=== PATIENT | male | born 1940 | race Caucasian/White ===

== ENCOUNTER 2019-05-12 10:29 | Emergency (ER) | payer MEDICARE, OTHER, SELFPAY ==
--- NOTE | ~2019-05-12 | XR_ITS ---
XR thoracic spine 3V DATE: 05/12/2019 12:06 INDICATION: Fall. Back pain. TECHNIQUE: AP, lateral, swimmer views COMPARISON: None FINDINGS: Mild levoscoliosis of the thoracic spine. There is diffuse osteopenia. Diffuse idiopathic skeletal hyperostosis. No fracture or bone destruction is evident. The thoracic pedicles are intact. No paraspinal soft tiss ue thickening. IMPRESSION: Diffuse osteopenia Diffuse idiopathic skeletal hyperostosis Reviewed, dictated and finalized at location B.
--- NOTE | ~2019-05-12 | XR_ITS ---
XR lumbar spine 2-3V DATE: 05/12/2019 12:06 INDICATION: Fall. Back pain. TECHNIQUE: AP, lateral, coned lateral lumbosacral views COMPARISON: None FINDINGS: Radiopaque contrast material from today's CT brain examination is incidentally noted in the renal collecting systems, ureters and urinary bladder; no hydronephrosis or collecting system fillin g defect is noted. There is diffuse osteopenia. There is degenerative spurring of the lower thoracic and lumbar spine. Lumbar and lumbosacral intersp aces are relatively preserved. No fracture or spondylolisthesis. No evidence of bone destruction. The lumbar pedicles and included T 12 pedicles are intact. Normal sacroiliac joints. There is abdominal aortic and common iliac artery calcification. IMPRESSION: Osteopenia and mild degenerative change Reviewed, dictated and finalized at location B.
--- NOTE | ~2019-05-12 | CT_ITS ---
EXAMINATION: CTA BRAIN/CAROTID DATE: 05/12/2019 12:06 INDICATION: Left leg weakness and speech difficulty TECHNIQUE: Computed tomographic angiography (CTA) of the head and neck was performed with 100 mL Omni paque-350 intravenous contrast. Multiplanar reconstructions and maximum intensity projection 3D-recon structions of the carotid arteries and of the intracranial arteries were created by the technologist on a separate workstation. Precontrast CT of the head was also obtained. Automated exposure control and iterative reconstruction technique were employed.The dose-length product was 1873.74 mGy-cm. COMPARISON: Head CT dated 03/27/2015 FINDINGS: Carotid arteries: There is atherosclerotic plaque with 0% stenosis of the right carotid bulb relative to normal distal artery lumen diameter (NASCET criteria). There is 75% stenosis of the left carotid bulb relative to n ormal distal artery lumen diameter. Scattered atherosclerotic plaque along the normal caliber aortic arch and along the great vessels arising from the arch,, most severe at the left subclavian artery wh ere there is 30% stenosis. There are bridging osteophytes at multiple levels in the cervical and uppe r thoracic spine, consistent with diffuse idiopathic skeletal hyperostosis (DISH). Cervical soft tiss ues are unremarkable. Calcified right apical nodule consistent with old granulomatous disease. Head CT: Again seen are a couple old lacunar infarcts in the left basal ganglia and additional old lacunar inf arct in the right basal ganglia which is new since the prior study. No acute intracranial hemorrhage, acute infarction or abnormal extra axial fluid collection. Interval progression of now mild to moder ate scattered white matter hypoattenuation consistent with chronic small vessel ischemic disease. Sym metric prominence of the sulci and ventricles consistent with mild age-appropriate diffuse cerebral v olume loss. No mass/mass effect. The orbits, paranasal sinuses and mastoid air cells are normal. Intracranial arteries There are scattered atherosclerotic calcifications at the bilateral carotid siphons and along the lef t vertebral artery resulting in mild, <50% stenosis. The left vertebral artery is dominant with a dim inutive right vertebral artery which supplies the right posterior cerebral artery but does not appear to extend to the basilar artery which appears to be supplied exclusively by the left vertebral arter y. There is mild stenosis along the relatively diminutive basilar artery. Both the left and right P1 segments appear patent but diminutive. There are patent bilateral posterior communicating arteries, l arger on the right. Moderate scattered atherosclerotic disease throughout the posterior circulation m ost severe at the left P2 segment however the more peripheral arteries appear opacified likely suppli ed via additional tiny collaterals with symmetric peripheral arborization the left and right posterio r circulations. The right A1 segment is patent and supplies both the right as well as the left anteri or cerebral arteries, the latter via a patent anterior communicating artery. Additional scattered ath erosclerotic disease in the anterior and posterior cerebral artery vascular distributions most promin ent a short moderate stenosis along the right anterior cerebral artery. The peripheral cerebral arbor ization in the anterior middle cerebral artery vascular distributions also appears symmetric. There a re no aneurysms identified. No evident ischemic or abnormally enhancing brain lesions identified. IMPRESSION: 1. A few small old lacunar infarcts at the bilateral basal ganglia. No acute intracranial process. 2. Extensive scattered atherosclerotic disease in the intracranial arteries most severe in the forgeman helper ior circulation, left greater than right but with collateral flow maintaining symmetric peripheral ce rebral arterial arborization.
[2019-05-12 10:27] VITALS: BP 152/85; PULSE 70; RESP 16; O2SAT 98
--- NOTE | 2019-05-12 10:44 | ED.FALL ---
HPI - Fall General Chief Complaint: Fall Stated Complaint: FALL/BACK PAIN Time Seen by Provider: 05/12/19 10:30 Source: patient Mode of arrival: EMS Limitations: no limitations History of Present Illness HPI Narrative: A 78 y/o male presents to the ED, via EMS, with c/o fall. Pt states that yesterday he fell twice, the first time he fell forward and hit his head, and the second time he fell backwards. He uses a walker to ambulate, but was not using the walker when he fell forward. Pt reports back pain and left leg weakness, but denies CP, neck pain, and ABD pain. He adds that the left leg weakness started 2 weeks ago and causes him to have trouble ambulating. Yesterday the patient's family states that he had trouble speaking around lunch time that lasted about 1 hour, but it resolved on its own. He arrives to the ED in a c-spine immobilizer. complaint: fall Onset (ago): day(s) (1) Fall from: standing Place fall occurred: home Context: tripped/slipped Location of injury: head and back Associated symptoms (after fall): other (Back pain, left leg weakness, HI, resolved trouble talking) Related Data Home Medications Medication Instructions Recorded Confirmed No Home Medications 05/12/19 05/12/19 Allergies Allergy/AdvReac Type Severity Reaction Status Date / Time No Known Allergies Allergy Unknown Verified 05/12/19 10:39 Review of Systems Review of Systems: All systems reviewed & are unremarkable except as noted in HPI and below Cardiovascular: Cardiovascular: Denies chest pain Gastrointestinal: Gastrointestinal: Denies abdominal pain Musculoskeletal: Musculoskeletal: Reports back pain and Denies neck pain Neurologic: Reports weakness (Left leg) and Reports other (HI, resolved trouble talking) [facility] Past Medical History Medical History (Updated 05/12/19 @ 18:50 by Kanchan Barcenas MD) Arthritis DVT (deep venous thrombosis) Fatty liver GERD (gastroesophageal reflux disease) Pneumonia Pulmonary embolism Seasonal allergies Skin cancer Skull fracture Surgical History Surgical History (Updated 05/12/19 @ 11:02 by Monalisa Magana) H/O local excision of skin lesion History of tonsillectomy Social History Social History (Updated 05/12/19 @ 11:02 by Monalisa Magana) Smoking status: Former smoker Second hand tobacco smoke exposure: Yes Smoking end date: 02/23/82 Exam Const: General: no acute distress and well developed Orientation/consciousness: oriented to person, oriented to place, oriented to time and patient oriented x3 HENMT: Head: normocephalic Ears: external ears normal General nose exam: Normal external nose present Eyes: General: appearance normal, both eyes and all related structures Conjunctivae: conjunctivae normal Neck: Neck: normal visual inspection and full ROM Chest: Chest palpation & inspection: normal inspection of the chest and no tenderness Resp: Effort & Inspection: normal respiratory effort Auscultation: clear to auscultation bilaterally Cardio: Rate: regular rate Rhythm: regular rhythm GI: GI Palp: No abdominal tenderness and Yes Soft to palpation Back/Spine/Pelvis: Back: back tenderness (Midback) Skin: General skin exam: normal color and turgor normal Trauma: abrasion (Right forehead, midback) Neuro: General: oriented to person, oriented to place, oriented to time and patient oriented x3 Cranial nerves: Yes CN's II-XII intact bilaterally Cognition (Neuro): normal cognition Speech: normal speech Motor exam (neuro): 5/5 motor strength present throughout Sensory Exam: normal sensation Coordination: [id number] test normal and [id number] test normal Extrem: General: normal to inspection, full ROM and no pedal edema Psych: Appearance: grossly normal Mental Status: mental status grossly normal Affect: normal affect Course Consultations Consultation #1: Discussed with Dr. Garrido (neurology) at [facility], who accepts transfer. Date: 05/12/19 Time: 14:44 V
--- NOTE | 2019-05-12 10:56 | ECG_ITS ---
Measurements Intervals Otto Rate: 69 P: 37 UT: 166 QRS: -18 QRSD: 150 T: 16 QT: 467 QTc: 504 Interpretive Statements SINUS RHYTHM RIGHT BUNDLE BRANCH BLOCK BASELINE ARTIFACT- I, II, III, AVL, AVF ABNORMAL ECG Electronically Signed On 05-12-2019 11:38:03 CDT by Kenyon Gonsales D.O.
[2019-05-12 11:43] LABS: Basophils Percent Auto 0.6 % (0.2-1.2); Eosinophils Percent Auto 0.6 % (0-4.4); Hematocrit 42.2 % (42.0-52.0); Hemoglobin 14.3 g/dL (14.0-18.0); Immature Granulocyte Absolute 0.02 K/mm3 (0.00-0.031); Immature Granulocyte Percent A 0.4 % (0-0.5); Immature Platelet Fraction Pct 2.3 % (0.9-11.2); Lymphocytes Absolute Auto 0.72 K/mm3 (0.9-3.2); Lymphocytes Percent Auto 13.2 % (18.3-44.2); Mean Corpuscular HGB Conc 33.9 g/dl (32-36); Mean Corpuscular Hemoglobin 29.2 pg (26-34); Mean Corpuscular Volume 86.1 fl (80-100); Mean Platelet Volume 10.3 fl (7.4-10.4); Monocytes Absolute Auto 0.5 K/mm3 (0.1-0.6); Monocytes Percent Auto 9.4 % (2.6-8.5); Neutrophils Absolute Auto 4.1 K/mm3 (1.3-6.7); Neutrophils Percent Auto 75.8 % (45.5-73.1); Platelet Count Result 108 k/mm3 (150-375); Red Cell Distribution Width 12.9 % (11.5-14.5); White Blood Count 5.5 K/mm3 (4.5-10.0)
[2019-05-12 11:47] LABS: Estimated CRCL calculation 84 ml/min; Estimated Glomerular Filt Rate > 60
[2019-05-12 11:52] LABS: Alanine Aminotransferase 34 U/L (4-50); Albumin Level 3.8 g/dL (3.5-5.1); Alkaline Phosphatase 74 U/L (38-126); Aspartate Amino Transferase 51 U/L (17-59); Blood Urea Nitrogen 9 mg/dL (9-20); Calcium 9.6 mg/dL (8.4-10.2); Carbon Dioxide 26 mmol/L (22-30); Chloride 106 mmol/L (98-107); Estimated CRCL calculation 84 ml/min; Estimated Glomerular Filt Rate > 60; Glucose 108 mg/dL (75-110); Potassium 3.6 mmol/L (3.4-5.0); Sodium 136 mmol/L (137-145)
[2019-05-12 13:32] VITALS: BP 137/93; PULSE 69; RESP 17; O2SAT 95
[2019-05-12 15:21] VITALS: BP 140/85; PULSE 69; RESP 18; TEMP 37.1; O2SAT 95
[2019-05-12 16:22] VITALS: BP 137/90; PULSE 69; RESP 22; O2SAT 94
--- NOTE | 2019-05-12 17:20 | PC.NURSE ---
no bed at this at time
--- NOTE | 2019-05-12 18:21 | PC.NURSE ---
[facility] unable to do transfer due to no trucks [facility] accepted transfer eta 1hr
[2019-05-12 18:23] VITALS: BP 99/57; PULSE 90; RESP 18; O2SAT 95
--- NOTE | 2019-05-12 18:25 | PC.NURSE ---
at 1825- phone report to nurse conti at [facility]. pt going to room 87332-m. pt advised of new room assignment.
[2019-05-12 19:24] VITALS: BP 97/55; PULSE 62; RESP 18; O2SAT 95
== END 2019-05-12 19:26 | disposition short-term general hospital (02) ==
LOC: ANHED 10:55
PROVIDERS: Emergency Provider Emergency Medicine
DX: G45.9 Transient cerebral ischemic attack, unspecified (principal); I65.22 Occlusion and stenosis of left carotid artery; Z86.718 Personal history of other venous thrombosis and embolism; Z86.711 Personal history of pulmonary embolism; Z85.828 Personal history of other malignant neoplasm of skin; Z87.891 Personal history of nicotine dependence; I45.10 Unspecified right bundle-branch block; M85.88 Other specified disorders of bone density and structure, other site
CPT/HCPCS: 36415; 70496; 70498; 72072; 72100; 80053; 85025; 85055; 93005; 99285; Q9967

== ENCOUNTER 2019-05-17 11:06 | IRF | payer MEDICARE, OTHER, SELFPAY ==
[2019-05-17 11:10] VITALS: BP 134/73; PULSE 78; RESP 18; TEMP 36.4; O2SAT 100; BMI 22.5
--- NOTE | 2019-05-17 11:12 | ADMGEN ---
This patient, Eren Kulkarni, was admitted to [facility] Room 223-02. Patient/family oriented to hospital policies and general routines including ID bracelet, bed and alarms, visiting hours, pain management, procedures, bathroom and other care routines, personal items, smoking policy, room service/diet, and visiting hours. Valuables list has been completed. Information on how to activate the Rapid Response Team has been discussed. Patient/Family are encouraged to report perceived risks to care and to ask questions if they do not understand what they are told or what they should do.
[2019-05-17] MEDS: CARBIDOPA/LEVODOPA 12.5/50 MG TABLET 1 TABLET PO ×2 (12:52→17:04)
[2019-05-17] MEDS: ATORVASTATIN 40 MG TABLET 80 MG PO (20:10)
[2019-05-17] MEDS: TOLNAFTATE 1% POWDER 45 GM BTL 1 APPLIC TOPICAL (20:11)
[2019-05-17 22:00] VITALS: BP 134/75; PULSE 69; RESP 19; TEMP 37.4; O2SAT 100
[2019-05-18 05:12] LABS: Basophils Percent Auto 0.9 % (0.2-1.2); Eosinophils Absolute Auto 0.1 K/mm3 (0-0.3); Eosinophils Percent Auto 1.6 % (0-4.4); Hematocrit 37.5 % (42.0-52.0); Hemoglobin 12.5 g/dL (14.0-18.0); Immature Granulocyte Absolute 0.01 K/mm3 (0.00-0.031); Immature Granulocyte Percent A 0.2 % (0-0.5); Immature Platelet Fraction Pct 4.1 % (0.9-11.2); Mean Corpuscular HGB Conc 33.3 g/dl (32-36); Mean Corpuscular Hemoglobin 29.5 pg (26-34); Mean Corpuscular Volume 88.4 fl (80-100); Mean Platelet Volume 11.3 fl (7.4-10.4); Monocytes Absolute Auto 0.5 K/mm3 (0.1-0.6); Monocytes Percent Auto 10.7 % (2.6-8.5); Neutrophils Percent Auto 66.6 % (45.5-73.1); Platelet Count Result 92 k/mm3 (150-375); Red Blood Count 4.24 M/mm3 (4.6-6.20); Red Cell Distribution Width 12.5 % (11.5-14.5); White Blood Count 4.5 K/mm3 (4.5-10.0)
[2019-05-18 05:29] LABS: Blood Urea Nitrogen 11 mg/dL (9-20); Calcium 8.9 mg/dL (8.4-10.2); Carbon Dioxide 25 mmol/L (22-30); Chloride 107 mmol/L (98-107); Cholesterol 151 mg/dL (0-200); Estimated CRCL calculation 93 ml/min; Estimated Glomerular Filt Rate > 60; Glucose 91 mg/dL (75-110); HDL Direct 36 mg/dL; Potassium 3.9 mmol/L (3.4-5.0); Sodium 136 mmol/L (137-145); Triglycerides 74 mg/dL (<150)
[2019-05-18 05:40] LABS: LDL Cholesterol Direct 101 mg/dL
[2019-05-18 06:00] VITALS: BP 140/76; PULSE 64; RESP 18; TEMP 36.8; O2SAT 97
[2019-05-18 08:40] VITALS: PULSE 64; RESP 18
[2019-05-18] MEDS: CYANOCOBALAMIN 500 MCG TABLET PO (08:40)
[2019-05-18] MEDS: ASPIRIN 81 MG ENTERIC TABLET PO (08:40)
[2019-05-18] MEDS: THIAMINE HCL 100 MG TABLET PO (08:40)
[2019-05-18] MEDS: CARBIDOPA/LEVODOPA 12.5/50 MG TABLET 1 TABLET PO ×3 (08:40→17:03)
[2019-05-18] MEDS: CLOPIDOGREL BISULFATE 75 MG TABLET PO (08:40)
[2019-05-18] MEDS: TOLNAFTATE 1% POWDER 45 GM BTL 1 APPLIC TOPICAL ×2 (08:46→20:59)
--- NOTE | 2019-05-18 10:00 | WPDREHABHP ---
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 The patient is a 78-year-old right-handed white male with no significant past medical history ( has a Penilla to the doctor in several years close), who presented to a local hospital on May 11, 2019 with transient speech difficulties and worsening falls. He fell twice on the day prior to presentation and heat his forehead. There was no loss of consciousness however he did recognize difficulty and getting the right words out . This lasted for about 2 hours and then resolved. Because he continued to fall he sought medical care. Noncontrast CT of the head showed no acute abnormalities, although, there did appear to be a few chronic subcortical strokes. CT of the head and the neck showed approximately 70% left-sided internal carotid artery stenosis. This was felt to be asymptomatic and therefore no need for 4 vessel angiography. MRI demonstrated a left pontine stroke. He was transferred to [facility] for further evaluation and treatment. Neurology was consulted and he was started on aspirin Plavix and atorvastatin. He is to remain on this Plavix for 21 days post stroke and then just aspirin. Physical examination was notable for parkinsonian symptoms and signs with hypophonia, left greater than the right bradykinesia, rigidity and mild left upper extremity resting tremor. Postural instability and almost magnetic gait with very short steps. Patient reported that the leg shaking and falls started relatively acutely a few weeks prior. Neurology fill that with the acute onset the patient may have had vascular event causing his parkinsonism. He was started on Sinemet t.i.d.. He will need to follow up with the movement disorder clinic. Cervical spine was image to rule out a cervical spine process contributing to his falls. This was unremarkable. Transthoracic echocardiogram with ejection fraction of 73%, no thrombus, vegetation or mass contributing to his issues. No mass or vegetation we identified on the TTE. He passed his modified barium swallow and was placed on regular consistency diet with thin liquids. Patient does drink vodka weekly and although he presented with no symptoms of withdrawal he was placed on thiamine 100 milligram daily. He tells me that he has been drinking for many many years and he enjoys it his B12 was low so he received IM injections for 3 days and then placed on oral B12 the patient will be discharged to rehab on Lovenox for DVT prophylaxis however I do not believe that he will need it as he is ambulating fairly well with the assistance and also with a walker Therapy was initiated at the acute care facility and the patient transferred to us from [facility] on May 17, 2019 on , the patient has not traveled outside the [place] or had contact with someone who is ill that has traveled outside the [place] in the past 21 days. The patient has not traveled or been in close per slow contact with the person who has traveled to an area of the [place] that is experiencing known transmission of the roman virus. The patient has no fever. He reported no symptoms of lower respiratory illness. FALLS OR SURGERIES: The patient has had no major surgeries in the 100 days prior to admission. They had Several falls in the past year. They had no falls with injury in the past year. PAST MEDICAL HISTORY: DVT/ PE several years ago for which he was treated with Eliquis for 6 months. Multiple actinic keratosis and squamous cell carcinoma of the skin PAST SURGICAL HISTORY: nothing remarkable SOCIAL HISTORY: the patient lives with his in a 2 level home with 2 steps to enter. He was independ
[2019-05-18 13:19] VITALS: BMI 22.5
[2019-05-18 14:00] VITALS: BP 111/64; PULSE 70; RESP 20; TEMP 36.5; O2SAT 96
--- NOTE | 2019-05-18 14:00 | PCSTNOTE ---
Please refer to the Bedside Swallow Evaluation in the EMR.
--- NOTE | 2019-05-18 16:25 | RPD ---
INDIVIDUALIZED PLAN OF CARE FOR Eren Kulkarni Brief Synthesis of Pre-Admission Screen, Post-Admission Evaluation and Therapy Evaluations: The patient presents to rehab with left pontine stroke. Comorbidities include parkinsonism, hypertension, hyperlipidemia, hypophonia, bradykinesia, rigidity, mild left upper extremity resting tremor, postural instability, magnetic gait. The patient requires physician services for neurology services, medical oversight, and coordination of care. Emotional needs will be monitored as depression is a common sequelae of stroke. The patient needs physician monitoring and treatment of new Parkinsonism diagnosis, previously untreated hypertension, previously untreated hyperlipidemia, monitoring for adverse reactions to new medications, and monitoring for infection. The patient requires nursing services for frequent neuro checks, anticoagulation therapy, medication management and education, pressure relief and skin care management, monitoring of labs, bowel and bladder training, Parkinsonism management and education, and fall/safety precautions. Deficits include:ADLs, Balance, Endurance, Mobility, Pain Management, ROM, Safety, Strength,Transfers Services, Wound Care Ink Printer/Case Management for: Discharge Planning and Patient/Family Counseling Physical Therapy: 5 days per week for 90 minutes. Treatments may include: Therapeutic Exercise, Gait Training, Neuromuscular Re-education, Transfer Training, Community Reintegration, Bed Mobility, Patient/Family Education, Wheelchair Mobility Group Therapy/Concurrent Therapy Rationales: -Improve attention span during functional activities in a distracted environment. -Enhance problem solving and/or adequate judgment skills during functional activities in a distracted environment. -Promote increased safety awareness in a distracted environment to reduce fall risk with functional tasks, transfers, and ambulation to allow a more safe, self-sufficient return to the home environment. -Improve dynamic balance skills to promote safety and independence with functional activities in a distracted environment for maximum gain. Occupational Therapy: 5 days per week for 90 minutes. Treatments may include: Therapeutic Exercise, Therapeutic Activity, Cognitive Training, Self-Care Transfer Training, Community Reintegration, Home Management, Patient/Family Education, Wheelchair Mobility Training, Energy Conservation Training Group Therapy/Concurrent Therapy Rationales: -Allow therapist to observe and teach generalization and carry-over of skills learned in individual therapy. -Enhance problem solving and sequencing skills during therapeutic activities in a distracted environment. -Promote increased safety awareness in a realistic setting to reduce fall risk with functional tasks due to visual and verbal distractions. -Increase functional level with ADLs, ADL transfers and use of adaptive equipment through therapeutic activities with others while promoting safety to allow a more safe, self-sufficient return home. Medical Prognosis: Good Anticipated Length of Stay: 12 days Rehab Goals: Eating Goal: 06-Independent Oral Hygiene Goal: 06-Independent Toileting Hygiene Goal: 06-Independent Shower/Bathe Self Goal: 04-Supervision or Touching Assistance Upper Body Dressing Goal: 06-Independent Lower Body Dressing Goal: 06-Independent Putting On/Taking Off Footwear Goal: 06-Independent Rolling Left and Right Goal: 06-Independent Sit to Lying Goal: 06-Independent Lying to Sitting on Side of Bed Goal: 06-Independent Sit to Stand Goal: 06-Independent Chair/Bxz-ss-Veffv Transfer Goal: 06-Independent Toilet Transfer Goal: 06-Independent Car Transfer Goal: 06-Independent Walk 10' Goal: 06-Independent Walk 50' with Two Turns Goal: 06-Independent Walk 150' Goal: 06-Independent Walk 10' on Uneven Surface Goal: 06-Independent 1 Step (Curb) Goal: 06-Independent 4 Steps Goal: 06-Independent 12 Steps Goal Sc
[2019-05-18] MEDS: ATORVASTATIN 40 MG TABLET 80 MG PO (20:58)
[2019-05-18 21:42] VITALS: BP 135/77; PULSE 73; RESP 16; TEMP 36.8
[2019-05-19 06:00] VITALS: BP 142/81; PULSE 66; RESP 16; TEMP 37.2; O2SAT 98
[2019-05-19] MEDS: THIAMINE HCL 100 MG TABLET PO (08:53)
[2019-05-19] MEDS: CARBIDOPA/LEVODOPA 12.5/50 MG TABLET 1 TABLET PO ×3 (08:53→17:08)
[2019-05-19] MEDS: CYANOCOBALAMIN 500 MCG TABLET PO (08:54)
[2019-05-19] MEDS: ASPIRIN 81 MG ENTERIC TABLET PO (08:54)
[2019-05-19] MEDS: CLOPIDOGREL BISULFATE 75 MG TABLET PO (08:54)
[2019-05-19] MEDS: TOLNAFTATE 1% POWDER 45 GM BTL 1 APPLIC TOPICAL ×2 (08:57→20:01)
--- NOTE | 2019-05-19 11:19 | WPDNEURORHBP ---
Subjective Date/time seen: 05/19/19 11:19 Interval history: this 78-year-old gentleman is here after having had brainstem stroke with what seems like bilateral weakness imbalance gait disability and recently found Parkinson's disease with which he is recuperating quite well he denies any worsening in his symptoms and very happy with the care he is receiving no falls he has reported no symptoms of headache nausea vomiting chest pain shortness of breath fever chills or sore throat Review of Systems Review of Systems: All systems reviewed & are unremarkable except as noted in HPI and below Functional Status Ambulation Ability Ability to Ambulate 10 Feet: Contact Guard Ability to Ambulate 50 Feet With 2 Turns: Contact Guard Ability to Ambulate 150 Feet: Contact Guard Ambulation Assistive Devices: Walker, Wheeled Transfers Ability Ability to Transfer In/Out of Chair: Standby Assistance Exam Const: General: comfortable and no acute distress HENMT: General nose exam: Normal nares present Mouth: Yes moist mucous membranes Eyes: General: appearance normal, both eyes and all related structures Neck: Neck: supple and no JVD Resp: Effort & Inspection: normal respiratory effort Auscultation: clear to auscultation bilaterally Cardio: Rate: regular rate Rhythm: regular rhythm GI: GI Palp: Yes Soft to palpation Auscultation: normal bowel sounds Skin: General skin exam: normal color and no rashes or lesions noted Neuro: Other: patient is awake alert a Joy oriented times place person his dysarthria and dysphonia fluctuates however is getting better rigidity tremor bradykinesia is also improving bilateral weakness is also improving overall picture is of gradual improvement and patient is happy with the care he is receiving Extrem: General: normal to inspection Psych: Mental Status: mental status grossly normal Objective Data Vital Signs Vital Signs: Vital Signs - 24 hr 05/18/19 14:00 05/18/19 21:42 05/19/19 06:00 Temperature 36.5 C 36.8 C 37.2 C Pulse Rate 70 73 66 Respiratory Rate 20 16 16 Blood Pressure 111/64 135/77 142/81 H Pulse Oximetry 96 98 Intake/Output Intake/Output: Intake & Output 05/16/19 05/17/19 05/18/19 05/19/19 23:59 23:59 23:59 23:59 Intake Total 480 960 240 Balance 480 960 240 Meds/Results Medications: Active Medications Generic Name Dose Route Start Last Admin Trade Name Freq PRN Reason Stop Dose Admin Aspirin 81 mg 05/18/19 09:00 05/19/19 08:54 Aspirin Ec PO 81 mg DAILY YARA Administration Atorvastatin Calcium 80 mg 05/17/19 21:00 05/18/19 20:58 Lipitor PO 80 mg HS YARA Administration Carbidopa/Levodopa 1 tablet 05/17/19 12:00 05/19/19 08:53 Sinemet 12.5/50 Mg PO 1 tablet TIDWM YARA Administration Clopidogrel Bisulfate 75 mg 05/18/19 09:00 05/19/19 08:54 Plavix PO 06/03/19 09:01 75 mg DAILY YARA Administration Cyanocobalamin 500 mcg 05/18/19 09:00 05/19/19 08:54 Vitamin B-12 Tab PO 06/17/19 09:01 500 mcg DAILY YARA Administration Thiamine HCl 100 mg 05/18/19 09:00 05/19/19 08:53 Vitamin B-1 PO 100 mg DAILY YARA Administration Tolnaftate 1 applic 05/17/19 21:00 05/19/19 08:57 Tolnaftate 1% Powder TOPICAL 05/21/19 21:01 1 applic Q12HR YARA Administration Progress Note: A&P Assessment and Plan (1) Alcoholism: Code(s): F10.20 - Alcohol dependence, uncomplicated Status: Acute (2) Parkinsons disease: Code(s): G20 - Parkinson's disease Status: Acute (3) Left pontine cerebrovascular accident: Code(s): I63.50 - Cerebral infarction due to unspecified occlusion or stenosis of unspecified cerebral artery Status: Acute Additional Plan we will continue present medical management physical therapy of compression therapy and gait training
[2019-05-19 13:25] VITALS: PULSE 68; RESP 16
[2019-05-19 14:00] VITALS: BP 113/71; PULSE 88; RESP 20; TEMP 37.1; O2SAT 99
[2019-05-19] MEDS: ATORVASTATIN 40 MG TABLET 80 MG PO (20:01)
[2019-05-19 22:00] VITALS: BP 125/71; PULSE 73; RESP 18; TEMP 36.6; O2SAT 97
[2019-05-20 06:00] VITALS: BP 130/77; PULSE 74; RESP 18; TEMP 37.2; O2SAT 96
[2019-05-20] MEDS: ASPIRIN 81 MG ENTERIC TABLET PO (08:22)
[2019-05-20] MEDS: CARBIDOPA/LEVODOPA 12.5/50 MG TABLET 1 TABLET PO ×3 (08:22→16:38)
[2019-05-20] MEDS: CLOPIDOGREL BISULFATE 75 MG TABLET PO (08:22)
[2019-05-20] MEDS: TOLNAFTATE 1% POWDER 45 GM BTL 1 APPLIC TOPICAL ×2 (08:22→20:20)
[2019-05-20] MEDS: THIAMINE HCL 100 MG TABLET PO (08:22)
[2019-05-20] MEDS: CYANOCOBALAMIN 500 MCG TABLET PO (08:22)
[2019-05-20 14:00] VITALS: BP 136/72; PULSE 77; RESP 18; TEMP 36.3; O2SAT 97
--- NOTE | 2019-05-20 16:03 | WPDNEURORHBP ---
Subjective Date/time seen: 05/20/19 16:03 Interval history: this 78-year-old white male is here after having had a brainstem stroke with bilateral signs and underlying Parkinson's disease he is doing fairly well he feels that his left side is weaker than the right however this could very well be related to his underlying Parkinson's disease rather than the stroke itself in any of the event is doing better and engage in therapy does not have any new complaints neurologically denies any headache nausea vomiting chest pain shortness of breath fever chills or sore throat Review of Systems Review of Systems: All systems reviewed & are unremarkable except as noted in HPI and below Functional Status Ambulation Ability Ability to Ambulate 10 Feet: Contact Guard Ability to Ambulate 50 Feet With 2 Turns: Contact Guard Ability to Ambulate 150 Feet: Contact Guard Ambulation Assistive Devices: Walker, Wheeled Transfers Ability Ability to Transfer In/Out of Chair: Contact Guard Exam Const: General: comfortable and no acute distress HENMT: General nose exam: Normal nares present Mouth: Yes moist mucous membranes Eyes: General: appearance normal, both eyes and all related structures Neck: Neck: supple and no JVD Resp: Effort & Inspection: normal respiratory effort Auscultation: clear to auscultation bilaterally Cardio: Rate: regular rate Rhythm: regular rhythm GI: GI Palp: Yes Soft to palpation Auscultation: normal bowel sounds Skin: General skin exam: normal color and no rashes or lesions noted Neuro: Other: patient is awake and alert well oriented time place and person his dysphonia and dysarthria is improving likewise is Parkinson's symptoms are improving his generalized weakness affecting both upper lower extremities also improving and engage in therapy and feeling better and looking better both by clinical examination on both by the therapist notes Extrem: General: normal to inspection Psych: Mental Status: mental status grossly normal Objective Data Vital Signs Vital Signs: Vital Signs - 24 hr 05/19/19 22:00 05/20/19 06:00 05/20/19 14:00 Temperature 36.6 C 37.2 C 36.3 C L Pulse Rate 73 74 77 Respiratory Rate 18 18 18 Blood Pressure 125/71 130/77 136/72 Pulse Oximetry 97 96 97 Intake/Output Intake/Output: Intake & Output 05/17/19 05/18/19 05/19/19 05/20/19 23:59 23:59 23:59 23:59 Intake Total 480 960 960 480 Balance 480 960 960 480 Meds/Results Medications: Active Medications Generic Name Dose Route Start Last Admin Trade Name Poli PRN Reason Stop Dose Admin Aspirin 81 mg 05/18/19 09:00 05/20/19 08:22 Aspirin Ec PO 81 mg DAILY YARA Administration Atorvastatin Calcium 80 mg 05/17/19 21:00 05/19/19 20:01 Lipitor PO 80 mg HS YARA Administration Carbidopa/Levodopa 1 tablet 05/17/19 12:00 05/20/19 12:16 Sinemet 12.5/50 Mg PO 1 tablet TIDWM YARA Administration Clopidogrel Bisulfate 75 mg 05/18/19 09:00 05/20/19 08:22 Plavix PO 06/03/19 09:01 75 mg DAILY YARA Administration Cyanocobalamin 500 mcg 05/18/19 09:00 05/20/19 08:22 Vitamin B-12 Tab PO 06/17/19 09:01 500 mcg DAILY YARA Administration Thiamine HCl 100 mg 05/18/19 09:00 05/20/19 08:22 Vitamin B-1 PO 100 mg DAILY YARA Administration Tolnaftate 1 applic 05/17/19 21:00 05/20/19 08:22 Tolnaftate 1% Powder TOPICAL 05/21/19 21:01 1 applic Q12HR YARA Administration Progress Note: A&P Assessment and Plan (1) Alcoholism: Code(s): F10.20 - Alcohol dependence, uncomplicated Status: Acute (2) Parkinsons disease: Code(s): G20 - Parkinson's disease Status: Acute (3) Left pontine cerebrovascular accident: Code(s): I63.50 - Cerebral infarction due to unspecified occlusion or stenosis of unspecified cerebral artery Status: Acute Additional Plan continue medical management physical therapy of compression therapy and gait training
[2019-05-20] MEDS: ATORVASTATIN 40 MG TABLET 80 MG PO (20:19)
[2019-05-20] MEDS: SENNA/DOCUSATE SODIUM TABLET 2 TAB PO (20:19)
[2019-05-20 22:00] VITALS: BP 128/70; PULSE 70; RESP 18; TEMP 36.9; O2SAT 97
[2019-05-21 06:00] VITALS: BP 113/56; PULSE 67; RESP 18; TEMP 36.6; O2SAT 98
[2019-05-21] MEDS: CYANOCOBALAMIN 500 MCG TABLET PO (08:19)
[2019-05-21] MEDS: THIAMINE HCL 100 MG TABLET PO (08:19)
[2019-05-21] MEDS: ASPIRIN 81 MG ENTERIC TABLET PO (08:19)
[2019-05-21] MEDS: CARBIDOPA/LEVODOPA 12.5/50 MG TABLET 1 TABLET PO ×3 (08:19→16:43)
[2019-05-21] MEDS: CLOPIDOGREL BISULFATE 75 MG TABLET PO (08:19)
[2019-05-21] MEDS: SENNA/DOCUSATE SODIUM TABLET 2 TAB PO (08:19)
[2019-05-21] MEDS: TOLNAFTATE 1% POWDER 45 GM BTL 1 APPLIC TOPICAL ×2 (08:20→21:44)
--- NOTE | 2019-05-21 12:53 | WPDNEURORHBP ---
Subjective Date/time seen: Brain stem stroke,and [id number]/28/20 12:53 Review of Systems Review of Systems: All systems reviewed & are unremarkable except as noted in HPI and below Constitutional: Constitutional: Reports no additional constitutional complaints Functional Status Ambulation Ability Ability to Ambulate 10 Feet: Contact Guard Ability to Ambulate 50 Feet With 2 Turns: Contact Guard Ability to Ambulate 150 Feet: Contact Guard Ambulation Assistive Devices: Walker, Wheeled Transfers Ability Ability to Transfer In/Out of Chair: Contact Guard Exam Const: General: cooperative, no acute distress, alert and awake HENMT: Head: normal to inspection Ears: hearing grossly normal bilaterally General nose exam: Normal external nose present Face and sinus: normal facial exam Mouth: Yes Normal oral and palatal mucosa present Eyes: General: appearance normal, both eyes and all related structures Alignment and Position: alignment normal Periorbital: periorbital findings normal Eyelids: eyelids normal Conjunctivae: conjunctivae normal Sclera: sclerae normal Cornea: corneas normal Pupils: Equal, round and reactive pupils present EOM: EOMs intact bilaterally Direct Ophthalmoscopy: normal light reflex Neck: Neck: full ROM Resp: Effort & Inspection: normal respiratory effort Auscultation: clear to auscultation bilaterally Cardio: Rate: regular rate Rhythm: regular rhythm GI: Auscultation: normal bowel sounds Skin: General skin exam: no rashes or lesions noted Neuro: General: patient oriented x3, moves all extremities, no focal motor deficits and CN's II-XI intact bilaterally Cranial nerves: Yes CN's II-XII intact bilaterally, Yes Equal, round and reactive pupils present, Yes Bilaterally intact EOM present, Yes Nystagmus not present, Yes Normal facial strength present, Yes Midline tongue present, Yes Symmetric palate elevation present and Yes Ability to bilaterally rotate head present Cognition (Neuro): normal cognition Speech: normal speech Gait exam (Neuro): Normal gait present (slow) Motor exam (neuro): 5/5 motor strength present throughout (decreased 4/5) and Normal motor muscle tone present throughout Deep tendon reflexes (DTR's): Right triceps reflex intensity grade: 1+, Left triceps reflex intensity grade: 1+, Rt Biceps (C5, C6): 1+, Left biceps reflex intensity grade: 1+, Right brachioradialis reflex intensity grade: 1+, Left brachioradialis reflex intensity grade: 1+, Right patellar reflex intensity grade: 1+, Left patellar reflex intensity grade: 1+, Right ankle reflex intensity grade: 0 and Left ankle reflex intensity grade: 0 Plantar Reflex Responses: downgoing: bilateral Psych: Appearance: grossly normal Objective Data Vital Signs Vital Signs: Vital Signs - 24 hr 05/20/19 14:00 05/20/19 22:00 05/21/19 06:00 Temperature 36.3 C L 36.9 C 36.6 C Pulse Rate 77 70 67 Respiratory Rate 18 18 18 Blood Pressure 136/72 128/70 113/56 L Pulse Oximetry 97 97 98 Intake/Output Intake/Output: Intake & Output 05/18/19 05/19/19 05/20/19 05/21/19 23:59 23:59 23:59 23:59 Intake Total 960 960 720 240 Balance 960 960 720 240 Meds/Results Medications: Active Medications Generic Name Dose Route Start Last Admin Trade Name Freq PRN Reason Stop Dose Admin Aspirin 81 mg 05/18/19 09:00 05/21/19 08:19 Aspirin Ec PO 81 mg DAILY YARA Administration Atorvastatin Calcium 80 mg 05/17/19 21:00 05/20/19 20:19 Lipitor PO 80 mg HS YARA Administration Carbidopa/Levodopa 1 tablet 05/17/19 12:00 05/21/19 12:20 Sinemet 12.5/50 Mg PO 1 tablet TIDWM YARA Administration Clopidogrel Bisulfate 75 mg 05/18/19 09:00 05/21/19 08:19 Plavix PO 06/03/19 09:01 75 mg DAILY YARA Administration Cyanocobalamin 500 mcg 05/18/19 09:00 05/21/19 08:19 Vitamin B-12 Tab PO 06/17/19 09:01 500 mcg DAILY YARA Administration Senna/Docusate Sodium 2 tab 05/20/19 21:00 05/21/19 08:19
[2019-05-21 14:00] VITALS: BP 101/63; PULSE 76; RESP 20; TEMP 36.7; O2SAT 99
[2019-05-21] MEDS: ATORVASTATIN 40 MG TABLET 80 MG PO (21:43)
[2019-05-21 22:00] VITALS: BP 111/64; PULSE 69; RESP 18; TEMP 37.1; O2SAT 99
[2019-05-22 06:00] VITALS: BP 113/69; PULSE 66; RESP 18; TEMP 36.9; O2SAT 99
[2019-05-22 08:00] VITALS: PULSE 66; RESP 18; O2SAT 99
[2019-05-22] MEDS: THIAMINE HCL 100 MG TABLET PO (08:25)
[2019-05-22] MEDS: ASPIRIN 81 MG ENTERIC TABLET PO (08:25)
[2019-05-22] MEDS: CYANOCOBALAMIN 500 MCG TABLET PO (08:25)
[2019-05-22] MEDS: CLOPIDOGREL BISULFATE 75 MG TABLET PO (08:26)
[2019-05-22] MEDS: CARBIDOPA/LEVODOPA 12.5/50 MG TABLET 1 TABLET PO ×3 (08:26→17:10)
[2019-05-22 14:00] VITALS: BP 111/63; PULSE 50; RESP 18; TEMP 37.1; O2SAT 98
[2019-05-22] MEDS: ATORVASTATIN 40 MG TABLET 80 MG PO (20:36)
[2019-05-22 22:00] VITALS: BP 109/65; PULSE 73; RESP 18; TEMP 37.1; O2SAT 99
[2019-05-23 06:00] VITALS: BP 138/73; PULSE 65; RESP 18; TEMP 36.7; O2SAT 99
--- NOTE | 2019-05-23 09:33 | WPDNEURORHBP ---
Subjective Date/time seen: parkinsonism with Brainstem [id number]/30/20 09:33 Review of Systems Review of Systems: All systems reviewed & are unremarkable except as noted in HPI and below Functional Status Ambulation Ability Ability to Ambulate 10 Feet: Standby Assistance Ability to Ambulate 50 Feet With 2 Turns: Contact Guard Ability to Ambulate 150 Feet: Contact Guard Ambulation Assistive Devices: Walker, Wheeled Transfers Ability Ability to Transfer In/Out of Chair: Standby Assistance Exam Const: General: comfortable and no acute distress HENMT: Head: normal to inspection General nose exam: Normal external nose present Face and sinus: normal facial exam Mouth: Yes Normal oral and palatal mucosa present and Yes tongue normal Eyes: General: appearance normal, both eyes and all related structures Visual Cuello: normal visual cuello by confrontation Alignment and Position: alignment normal Periorbital: periorbital findings normal Eyelids: eyelids normal Conjunctivae: conjunctivae normal Sclera: sclerae normal Cornea: corneas normal Pupils: Equal, round and reactive pupils present EOM: EOMs intact bilaterally Neck: Neck: full ROM Resp: Auscultation: clear to auscultation bilaterally Cardio: Rate: regular rate Rhythm: regular rhythm GI: Auscultation: normal bowel sounds Skin: General skin exam: no rashes or lesions noted Neuro: General: patient oriented x3 and moves all extremities Cranial nerves: Yes CN's II-XII intact bilaterally Cognition (Neuro): normal cognition Speech: normal speech Motor exam (neuro): 5/5 motor strength present throughout Deep tendon reflexes (DTR's): Right triceps reflex intensity grade: 1+, Left triceps reflex intensity grade: 1+, Rt Biceps (C5, C6): 1+, Left biceps reflex intensity grade: 1+, Right brachioradialis reflex intensity grade: 1+, Left brachioradialis reflex intensity grade: 1+, Right patellar reflex intensity grade: 1+, Left patellar reflex intensity grade: 1+, Right ankle reflex intensity grade: 0 and Left ankle reflex intensity grade: 0 Romberg Test: Positive Psych: Appearance: grossly normal Affect: normal affect Attitude: cooperative Thought process: Normal thought process present Objective Data Vital Signs Vital Signs: Vital Signs - 24 hr 05/22/19 14:00 05/22/19 22:00 05/23/19 06:00 Temperature 37.1 C 37.1 C 36.7 C Pulse Rate 50 L 73 65 Respiratory Rate 18 18 18 Blood Pressure 111/63 109/65 138/73 Pulse Oximetry 98 99 99 Intake/Output Intake/Output: Intake & Output 05/20/19 05/21/19 05/22/19 05/23/19 23:59 23:59 23:59 23:59 Intake Total 720 920 780 360 Balance 720 920 780 360 Meds/Results Medications: Active Medications Generic Name Dose Route Start Last Admin Trade Name Kevynq PRN Reason Stop Dose Admin Aspirin 81 mg 05/18/19 09:00 05/22/19 08:25 Aspirin Ec PO 81 mg DAILY YARA Administration Atorvastatin Calcium 80 mg 05/17/19 21:00 05/22/19 20:36 Lipitor PO 80 mg HS YARA Administration Carbidopa/Levodopa 1 tablet 05/17/19 12:00 05/22/19 17:10 Sinemet 12.5/50 Mg PO 1 tablet TIDWM YARA Administration Clopidogrel Bisulfate 75 mg 05/18/19 09:00 05/22/19 08:26 Plavix PO 06/03/19 09:01 75 mg DAILY YARA Administration Cyanocobalamin 500 mcg 05/18/19 09:00 05/22/19 08:25 Vitamin B-12 Tab PO 06/17/19 09:01 500 mcg DAILY YARA Administration Senna/Docusate Sodium 2 tab 05/21/19 16:44 Senokot S Tablet PO Q12HR PRN Constipation Thiamine HCl 100 mg 05/18/19 09:00 05/22/19 08:25 Vitamin B-1 PO 100 mg DAILY YARA Administration Progress Note: A&P Assessment and Plan (1) Alcoholism: Code(s): F10.20 - Alcohol dependence, uncomplicated Status: Acute (2) Parkinsons disease: Code(s): G20 - Parkinson's disease Status: Acute (3) Left pontine cerebrovascular accident: Code(s): I63.50 - Cerebral infarction due to unspecified occlusion
[2019-05-23] MEDS: CARBIDOPA/LEVODOPA 12.5/50 MG TABLET 1 TABLET PO ×3 (09:36→17:26)
[2019-05-23] MEDS: CLOPIDOGREL BISULFATE 75 MG TABLET PO (09:36)
[2019-05-23] MEDS: ASPIRIN 81 MG ENTERIC TABLET PO (09:36)
[2019-05-23] MEDS: THIAMINE HCL 100 MG TABLET PO (09:36)
[2019-05-23] MEDS: CYANOCOBALAMIN 500 MCG TABLET PO (09:36)
--- NOTE | 2019-05-23 11:12 | PCDIET ---
Nutrition Follow-Up Complete: Nutrition Diagnosis: Involuntary weight loss related to decreased appetite as evidenced by reported 20 pound weight loss x 1 month. Nutrition Goals: Patient to consume 75% of meals + supplement Goals met. Patient consuming 100% of most meals on regular diet with Ensure Compact 1x daily. Recommend continuing present diet at this time, but have recommended heart healthy diet intermediate teacher to patient. Last recorded weight is 75.3 kg. Recommend obtaining new weight. Bowel Motility: +BM today. Labs Reviewed: No new labs available. Meds Noted: Sinemet, Vitamin B12, Vitamin B1 Additional Notes: No documented skin breakdown. Will continue to monitor with same goals. Nutrition Monitoring and Evaluation: Follow up every 7 days.
[2019-05-23 14:00] VITALS: BP 111/62; PULSE 69; RESP 18; TEMP 36.8; O2SAT 98
[2019-05-23] MEDS: ATORVASTATIN 40 MG TABLET 80 MG PO (20:03)
[2019-05-23 22:00] VITALS: BP 138/70; PULSE 67; RESP 16; TEMP 36.9; O2SAT 100
[2019-05-24 06:00] VITALS: BP 136/74; PULSE 59; RESP 20; TEMP 36.9; O2SAT 98
[2019-05-24] MEDS: CLOPIDOGREL BISULFATE 75 MG TABLET PO (07:54)
[2019-05-24] MEDS: CYANOCOBALAMIN 500 MCG TABLET PO (07:54)
[2019-05-24] MEDS: THIAMINE HCL 100 MG TABLET PO (07:54)
[2019-05-24] MEDS: CARBIDOPA/LEVODOPA 12.5/50 MG TABLET 1 TABLET PO (07:54)
[2019-05-24] MEDS: ASPIRIN 81 MG ENTERIC TABLET PO (07:55)
--- NOTE | 2019-05-24 12:00 | WPDNEURORHBP ---
Subjective Date/time seen: 05/24/19 12:00 Interval history: this 78-year-old gentleman is here on the acute rehab of having had brainstem stroke with underlying Parkinson's disease which has been newly diagnosed however his shuffling gait and the signs and symptoms of the Parkinson's disease have been present at least for some time his still shuffling and would benefit from increased dose of carbidopa levodopa which I will increase Prieb he was present for the team conference denies any headache nausea vomiting chest pain shortness of breath fever chills or sore throat Review of Systems Review of Systems: All systems reviewed & are unremarkable except as noted in HPI and below Functional Status Ambulation Ability Ability to Ambulate 10 Feet: Standby Assistance Ability to Ambulate 50 Feet With 2 Turns: Standby Assistance Ability to Ambulate 150 Feet: Contact Guard Ambulation Assistive Devices: Walker, Wheeled Transfers Ability Ability to Transfer In/Out of Chair: Standby Assistance Exam Const: General: comfortable and no acute distress HENMT: General nose exam: Normal nares present Mouth: Yes moist mucous membranes Eyes: General: appearance normal, both eyes and all related structures Neck: Neck: supple and no JVD Resp: Effort & Inspection: normal respiratory effort Auscultation: clear to auscultation bilaterally Cardio: Rate: regular rate Rhythm: regular rhythm GI: GI Palp: Yes Soft to palpation Auscultation: normal bowel sounds Skin: General skin exam: normal color and no rashes or lesions noted Neuro: Other: patient is awake and alert floor eating time place and person his dysphonia and dysarthria is improving however Dalton Lucero is still there with mild tremor and bradykinesia and rigidity overall has improved however would I believe benefit from increased dose of carbidopa levodopa which I am planning to do today Extrem: General: normal to inspection Objective Data Vital Signs Vital Signs: Vital Signs - 24 hr 05/23/19 14:00 05/23/19 22:00 05/24/19 06:00 Temperature 36.8 C 36.9 C 36.9 C Pulse Rate 69 67 59 L Respiratory Rate 18 16 20 Blood Pressure 111/62 138/70 136/74 Pulse Oximetry 98 100 98 Intake/Output Intake/Output: Intake & Output 05/21/19 05/22/19 05/23/19 05/24/19 23:59 23:59 23:59 23:59 Intake Total 996 537 5588 360 Balance 184 349 6802 360 Meds/Results Medications: Active Medications Generic Name Dose Route Start Last Admin Trade Name Freq PRN Reason Stop Dose Admin Aspirin 81 mg 05/18/19 09:00 05/24/19 07:55 Aspirin Ec PO 81 mg DAILY YARA Administration Atorvastatin Calcium 80 mg 05/17/19 21:00 05/23/19 20:03 Lipitor PO 80 mg HS YARA Administration Carbidopa/Levodopa 1 tablet 05/24/19 12:00 Sinemet 25/100 Mg PO TIDWM YARA Clopidogrel Bisulfate 75 mg 05/18/19 09:00 05/24/19 07:54 Plavix PO 06/03/19 09:01 75 mg DAILY YARA Administration Cyanocobalamin 500 mcg 05/18/19 09:00 05/24/19 07:54 Vitamin B-12 Tab PO 06/17/19 09:01 500 mcg DAILY YARA Administration Senna/Docusate Sodium 2 tab 05/21/19 16:44 Senokot S Tablet PO Q12HR PRN Constipation Thiamine HCl 100 mg 05/18/19 09:00 05/24/19 07:54 Vitamin B-1 PO 100 mg DAILY YARA Administration Progress Note: A&P Assessment and Plan (1) Alcoholism: Code(s): F10.20 - Alcohol dependence, uncomplicated Status: Acute (2) Parkinsons disease: Code(s): G20 - Parkinson's disease Status: Acute (3) Left pontine cerebrovascular accident: Code(s): I63.50 - Cerebral infarction due to unspecified occlusion or stenosis of unspecified cerebral artery Status: Acute Additional Plan discussed in the team conference we will [place] the dose of carbidopa levodopa and discharge planning for Tuesday May 28, 2019
[2019-05-24] MEDS: CARBIDOPA/LEVODOPA 25/100 MG TABLET 1 TABLET PO ×2 (12:10→16:53)
[2019-05-24 14:00] VITALS: BP 119/69; PULSE 68; RESP 20; TEMP 36.9; O2SAT 98
[2019-05-24] MEDS: ATORVASTATIN 40 MG TABLET 80 MG PO (20:42)
[2019-05-24 22:00] VITALS: BP 133/67; PULSE 76; RESP 18; TEMP 37.2; O2SAT 95
[2019-05-25 05:10] LABS: Basophils Percent Auto 0.7 % (0.2-1.2); Eosinophils Absolute Auto 0.1 K/mm3 (0-0.3); Eosinophils Percent Auto 1.6 % (0-4.4); Hematocrit 35.8 % (42.0-52.0); Hemoglobin 11.8 g/dL (14.0-18.0); Immature Granulocyte Absolute 0.02 K/mm3 (0.00-0.031); Immature Granulocyte Percent A 0.4 % (0-0.5); Lymphocytes Percent Auto 17.7 % (18.3-44.2); Mean Corpuscular Hemoglobin 28.7 pg (26-34); Mean Corpuscular Volume 87.1 fl (80-100); Mean Platelet Volume 11.1 fl (7.4-10.4); Monocytes Absolute Auto 0.5 K/mm3 (0.1-0.6); Monocytes Percent Auto 8.3 % (2.6-8.5); Neutrophils Percent Auto 71.3 % (45.5-73.1); Platelet Count Result 156 k/mm3 (150-375); Red Blood Count 4.11 M/mm3 (4.6-6.20); Red Cell Distribution Width 11.9 % (11.5-14.5); White Blood Count 5.7 K/mm3 (4.5-10.0)
[2019-05-25 05:27] LABS: Blood Urea Nitrogen 9 mg/dL (9-20); Carbon Dioxide 28 mmol/L (22-30); Chloride 106 mmol/L (98-107); Estimated CRCL calculation 93 ml/min; Estimated Glomerular Filt Rate > 60; Glucose 93 mg/dL (75-110); Sodium 136 mmol/L (137-145)
[2019-05-25 05:55] VITALS: BP 131/76; PULSE 65; RESP 18; TEMP 37.1; O2SAT 98
[2019-05-25 08:00] VITALS: PULSE 65; RESP 18; O2SAT 98
[2019-05-25] MEDS: CYANOCOBALAMIN 500 MCG TABLET PO (09:42)
[2019-05-25] MEDS: CLOPIDOGREL BISULFATE 75 MG TABLET PO (09:42)
[2019-05-25] MEDS: THIAMINE HCL 100 MG TABLET PO (09:42)
[2019-05-25] MEDS: ASPIRIN 81 MG ENTERIC TABLET PO (09:43)
[2019-05-25] MEDS: CARBIDOPA/LEVODOPA 25/100 MG TABLET 1 TABLET PO ×3 (09:44→17:16)
--- NOTE | 2019-05-25 10:53 | PCPTNOTE ---
Eren Kulkarni was evaluated for a wheeled walker on 05/25/2019 by this physical therapist. The wheeled walker will resolve patient's mobility limitations and will be used for ADL's within the home. The patient can safely use the wheeled walker. ?The wheeled walker will resolve the patient?s mobility deficits, including transfers, gait and ADL safety.
[2019-05-25 14:00] VITALS: BP 129/64; PULSE 68; RESP 18; TEMP 36.7; O2SAT 97
--- NOTE | 2019-05-25 14:36 | WPDNEURORHBP ---
Subjective Date/time seen: 05/25/19 14:36 Interval history: this 78-year-old patient is here after having had a stroke with bilateral weakness is underlying Parkinson's disease doing much better and engage in therapy and quite happy with the care he is able to tolerate increased dose of carbidopa levodopa fairly well without any hallucinations psychosis headache nausea vomiting chest pain shortness of breath fever chills or sore throat Review of Systems Review of Systems: All systems reviewed & are unremarkable except as noted in HPI and below Functional Status Ambulation Ability Ability to Ambulate 10 Feet: Standby Assistance Ability to Ambulate 50 Feet With 2 Turns: Standby Assistance Ability to Ambulate 150 Feet: Contact Guard Ambulation Assistive Devices: Walker, Wheeled Transfers Ability Ability to Transfer In/Out of Chair: Standby Assistance Exam Const: General: comfortable and no acute distress HENMT: General nose exam: Normal nares present Mouth: Yes moist mucous membranes Eyes: General: appearance normal, both eyes and all related structures Neck: Neck: supple and no JVD Resp: Effort & Inspection: normal respiratory effort Auscultation: clear to auscultation bilaterally Cardio: Rate: regular rate Rhythm: regular rhythm GI: GI Palp: Yes Soft to palpation Auscultation: normal bowel sounds Skin: General skin exam: normal color and no rashes or lesions noted Neuro: Other: patient is awake alert oriented time presents person his weakness is improving and engage in therapy quite well is Parkinson's signs are improving his till shuffles but on command he is able to improve his gait and stance is dysphonia and dysarthria as improving overall the picture is of significant improvement in the previous few days Extrem: General: normal to inspection Psych: Mental Status: mental status grossly normal Objective Data Vital Signs Vital Signs: Vital Signs - 24 hr 05/24/19 22:00 05/25/19 05:55 05/25/19 08:00 Temperature 37.2 C 37.1 C Pulse Rate 76 65 65 Respiratory Rate 18 18 18 Blood Pressure 133/67 131/76 Pulse Oximetry 95 98 98 05/25/19 14:00 Temperature 36.7 C Pulse Rate 68 Respiratory Rate 18 Blood Pressure 129/64 Pulse Oximetry 97 Intake/Output Intake/Output: Intake & Output 05/22/19 05/23/19 05/24/19 05/25/19 23:59 23:59 23:59 23:59 Intake Total 780 1080 840 480 Balance 780 1080 840 480 Meds/Results Medications: Active Medications Generic Name Dose Route Start Last Admin Trade Name Poli PRN Reason Stop Dose Admin Aspirin 81 mg 05/18/19 09:00 05/25/19 09:43 Aspirin Ec PO 81 mg DAILY YARA Administration Atorvastatin Calcium 80 mg 05/17/19 21:00 05/24/19 20:42 Lipitor PO 80 mg HS YARA Administration Carbidopa/Levodopa 1 tablet 05/24/19 12:00 05/25/19 13:07 Sinemet 25/100 Mg PO 1 tablet TIDWM YARA Administration Clopidogrel Bisulfate 75 mg 05/18/19 09:00 05/25/19 09:42 Plavix PO 06/03/19 09:01 75 mg DAILY YARA Administration Cyanocobalamin 500 mcg 05/18/19 09:00 05/25/19 09:42 Vitamin B-12 Tab PO 06/17/19 09:01 500 mcg DAILY YARA Administration Senna/Docusate Sodium 2 tab 05/21/19 16:44 Senokot S Tablet PO Q12HR PRN Constipation Thiamine HCl 100 mg 05/18/19 09:00 05/25/19 09:42 Vitamin B-1 PO 100 mg DAILY YARA Administration Labs Labs: Laboratory Results - last 24 hr 05/25/19 05/25/19 04:31 04:31 WBC 5.7 RBC 4.11 L Hgb 11.8 L Hct 35.8 L MCV 87.1 MCH 28.7 MCHC 33.0 RDW 11.9 Plt Count 156 D MPV 11.1 H Immature Gran % (Auto) 0.4 Neut % (Auto) 71.3 Lymph % (Auto) 17.7 L [place] % (Auto) 8.3 Eos % (Auto) 1.6 Baso % (Auto) 0.7 Lymph # (Auto) 1.00 [place] # (Auto) 0.5 Eos # (Auto) 0.1 Baso # (Auto) 0.0 Abs Immat Gran (auto) 0.02 Absolute Neuts (auto) 4.0 Absolute Nucleated RBC 0.0 Nucleated RBC % 0.0 Sodium 136 L Potassium 4.0
[2019-05-25] MEDS: ATORVASTATIN 40 MG TABLET 80 MG PO (20:24)
[2019-05-25 22:00] VITALS: BP 124/77; PULSE 83; RESP 20; TEMP 36.6; O2SAT 98
[2019-05-26 06:00] VITALS: BP 134/73; PULSE 57; RESP 20; TEMP 36.4; O2SAT 99
[2019-05-26] MEDS: ASPIRIN 81 MG ENTERIC TABLET PO (09:31)
[2019-05-26] MEDS: THIAMINE HCL 100 MG TABLET PO (09:31)
[2019-05-26] MEDS: SENNA/DOCUSATE SODIUM TABLET 2 TAB PO (09:31)
[2019-05-26] MEDS: CYANOCOBALAMIN 500 MCG TABLET PO (09:31)
[2019-05-26] MEDS: CARBIDOPA/LEVODOPA 25/100 MG TABLET 1 TABLET PO ×3 (09:31→17:33)
[2019-05-26] MEDS: CLOPIDOGREL BISULFATE 75 MG TABLET PO (09:32)
[2019-05-26 14:00] VITALS: BP 138/68; PULSE 80; RESP 20; TEMP 36.4; O2SAT 98
--- NOTE | 2019-05-26 15:41 | WPDNEURORHBP ---
Subjective Date/time seen: 05/26/19 15:41 Interval history: this 78-year-old gentleman is here after having had pontine stroke with the paresis as mentioned in my the previous notes his weakness has been improving his Parkinson's disease is improving is quite happy with the care he is receiving denies any worsening a role in fact he is happy with the improvement he sees himself denies any fever chills sore throat headache nausea vomiting Review of Systems Review of Systems: All systems reviewed & are unremarkable except as noted in HPI and below Functional Status Ambulation Ability Ability to Ambulate 10 Feet: Independent Ability to Ambulate 50 Feet With 2 Turns: Independent Ability to Ambulate 150 Feet: Independent Ambulation Assistive Devices: Walker, Wheeled Transfers Ability Ability to Transfer In/Out of Chair: Independent Exam Const: General: comfortable and no acute distress HENMT: General nose exam: Normal nares present Mouth: Yes moist mucous membranes Eyes: General: appearance normal, both eyes and all related structures Neck: Neck: supple and no JVD Resp: Effort & Inspection: normal respiratory effort Auscultation: clear to auscultation bilaterally Cardio: Rate: regular rate Rhythm: regular rhythm GI: GI Palp: Yes Soft to palpation Auscultation: normal bowel sounds Skin: General skin exam: normal color and no rashes or lesions noted Neuro: Other: patient is awake alert over wanted time place and person is speech and language functions are now near normal the hemiparesis has significantly improved his Parkinson's has improved and quite a bit remarkable improvement in the previous several days Extrem: General: normal to inspection Psych: Mental Status: mental status grossly normal Objective Data Vital Signs Vital Signs: Vital Signs - 24 hr 05/25/19 22:00 05/26/19 06:00 05/26/19 14:00 Temperature 36.6 C 36.4 C 36.4 C Pulse Rate 83 57 L 80 Respiratory Rate 20 20 20 Blood Pressure 124/77 134/73 138/68 Pulse Oximetry 98 99 98 Intake/Output Intake/Output: Intake & Output 05/23/19 05/24/19 05/25/19 05/26/19 23:59 23:59 23:59 23:59 Intake Total 1080 840 720 480 Balance 1080 840 720 480 Meds/Results Medications: Active Medications Generic Name Dose Route Start Last Admin Trade Name Freq PRN Reason Stop Dose Admin Aspirin 81 mg 05/18/19 09:00 05/26/19 09:31 Aspirin Ec PO 81 mg DAILY YARA Administration Atorvastatin Calcium 80 mg 05/17/19 21:00 05/25/19 20:24 Lipitor PO 80 mg HS YARA Administration Carbidopa/Levodopa 1 tablet 05/24/19 12:00 05/26/19 13:23 Sinemet 25/100 Mg PO 1 tablet TIDWM YARA Administration Clopidogrel Bisulfate 75 mg 05/18/19 09:00 05/26/19 09:32 Plavix PO 06/03/19 09:01 75 mg DAILY YARA Administration Cyanocobalamin 500 mcg 05/18/19 09:00 05/26/19 09:31 Vitamin B-12 Tab PO 06/17/19 09:01 500 mcg DAILY YARA Administration Senna/Docusate Sodium 2 tab 05/21/19 16:44 05/26/19 09:31 Senokot S Tablet PO 2 tab Q12HR PRN Administration Constipation Thiamine HCl 100 mg 05/18/19 09:00 05/26/19 09:31 Vitamin B-1 PO 100 mg DAILY YARA Administration Progress Note: A&P Assessment and Plan (1) Alcoholism: Code(s): F10.20 - Alcohol dependence, uncomplicated Status: Acute (2) Parkinsons disease: Code(s): G20 - Parkinson's disease Status: Acute (3) Left pontine cerebrovascular accident: Code(s): I63.50 - Cerebral infarction due to unspecified occlusion or stenosis of unspecified cerebral artery Status: Acute Additional Plan we will continue present medical management physical therapy of compression therapy and gait training
[2019-05-26 16:35] VITALS: PULSE 78; RESP 20; O2SAT 98
[2019-05-26] MEDS: ATORVASTATIN 40 MG TABLET 80 MG PO (20:18)
[2019-05-26 22:00] VITALS: BP 109/63; PULSE 68; RESP 20; TEMP 36.8; O2SAT 97
[2019-05-27 06:00] VITALS: BP 135/66; PULSE 64; RESP 20; TEMP 36.4; O2SAT 97
[2019-05-27] MEDS: THIAMINE HCL 100 MG TABLET PO (09:46)
[2019-05-27] MEDS: ASPIRIN 81 MG ENTERIC TABLET PO (09:46)
[2019-05-27] MEDS: CLOPIDOGREL BISULFATE 75 MG TABLET PO (09:46)
[2019-05-27] MEDS: CYANOCOBALAMIN 500 MCG TABLET PO (09:46)
[2019-05-27] MEDS: CARBIDOPA/LEVODOPA 25/100 MG TABLET 1 TABLET PO ×3 (09:46→16:50)
--- NOTE | 2019-05-27 12:40 | WPDNEURORHBP ---
Subjective Date/time seen: 05/27/19 12:40 Interval history: this 78-year-old gentleman is here after having had brainstem stroke and has significantly improved his Parkinson's also has improved and is ready to be discharged tomorrow does not have any new specific complaints particularly denies any headache nausea vomiting fever chills sore throat abdominal pain Review of Systems Review of Systems: All systems reviewed & are unremarkable except as noted in HPI and below Functional Status Ambulation Ability Ability to Ambulate 10 Feet: Independent Ability to Ambulate 50 Feet With 2 Turns: Independent Ability to Ambulate 150 Feet: Independent Ambulation Assistive Devices: Walker, Wheeled Transfers Ability Ability to Transfer In/Out of Chair: Independent Exam Const: General: comfortable and no acute distress HENMT: General nose exam: Normal nares present Mouth: Yes moist mucous membranes Eyes: General: appearance normal, both eyes and all related structures Neck: Neck: supple and no JVD Resp: Effort & Inspection: normal respiratory effort Auscultation: clear to auscultation bilaterally Cardio: Rate: regular rate Rhythm: regular rhythm GI: GI Palp: Yes Soft to palpation Auscultation: normal bowel sounds Skin: General skin exam: normal color and no rashes or lesions noted Neuro: Other: patient is awake and alert well oriented to time place person has normal speech and language function normal cranial examination the strength bilaterally has improved parkinsonian signs have improved overall significant improvement in his physical and me Psych: Mental Status: mental status grossly normal Objective Data Vital Signs Vital Signs: Vital Signs - 24 hr 05/26/19 14:00 05/26/19 16:35 05/26/19 22:00 Temperature 36.4 C 36.8 C Pulse Rate 80 78 68 Respiratory Rate 20 20 20 Blood Pressure 138/68 109/63 Pulse Oximetry 98 98 97 05/27/19 06:00 Temperature 36.4 C L Pulse Rate 64 Respiratory Rate 20 Blood Pressure 135/66 Pulse Oximetry 97 Intake/Output Intake/Output: Intake & Output 05/24/19 05/25/19 05/26/19 05/27/19 23:59 23:59 23:59 23:59 Intake Total 840 720 720 360 Balance 840 720 720 360 Meds/Results Medications: Active Medications Generic Name Dose Route Start Last Admin Trade Name Freq PRN Reason Stop Dose Admin Aspirin 81 mg 05/18/19 09:00 05/27/19 09:46 Aspirin Ec PO 81 mg DAILY YARA Administration Atorvastatin Calcium 80 mg 05/17/19 21:00 05/26/19 20:18 Lipitor PO 80 mg HS YARA Administration Carbidopa/Levodopa 1 tablet 05/24/19 12:00 05/27/19 12:02 Sinemet 25/100 Mg PO 1 tablet TIDWM YARA Administration Clopidogrel Bisulfate 75 mg 05/18/19 09:00 05/27/19 09:46 Plavix PO 06/03/19 09:01 75 mg DAILY YARA Administration Cyanocobalamin 500 mcg 05/18/19 09:00 05/27/19 09:46 Vitamin B-12 Tab PO 06/17/19 09:01 500 mcg DAILY YARA Administration Senna/Docusate Sodium 2 tab 05/21/19 16:44 05/26/19 09:31 Senokot S Tablet PO 2 tab Q12HR PRN Administration Constipation Thiamine HCl 100 mg 05/18/19 09:00 05/27/19 09:46 Vitamin B-1 PO 100 mg DAILY YARA Administration Progress Note: A&P Assessment and Plan (1) Alcoholism: Code(s): F10.20 - Alcohol dependence, uncomplicated Status: Acute (2) Parkinsons disease: Code(s): G20 - Parkinson's disease Status: Acute (3) Left pontine cerebrovascular accident: Code(s): I63.50 - Cerebral infarction due to unspecified occlusion or stenosis of unspecified cerebral artery Status: Acute Additional Plan we will continue present medical management PT OT and gait training and discharge planning for tomorrow to be followed by myself in 2 to 3 months
[2019-05-27 14:00] VITALS: BP 101/58; PULSE 76; RESP 16; TEMP 36.8; O2SAT 99
[2019-05-27] MEDS: ATORVASTATIN 40 MG TABLET 80 MG PO (20:14)
[2019-05-27 22:00] VITALS: BP 142/64; PULSE 66; RESP 18; TEMP 36.6; O2SAT 96
[2019-05-28 06:00] VITALS: BP 120/87; PULSE 70; RESP 18; TEMP 36.7; O2SAT 99
[2019-05-28] MEDS: CLOPIDOGREL BISULFATE 75 MG TABLET PO (09:29)
[2019-05-28] MEDS: ASPIRIN 81 MG ENTERIC TABLET PO (09:29)
[2019-05-28] MEDS: THIAMINE HCL 100 MG TABLET PO (09:30)
[2019-05-28] MEDS: CARBIDOPA/LEVODOPA 25/100 MG TABLET 1 TABLET PO ×2 (09:30→11:05)
[2019-05-28] MEDS: CYANOCOBALAMIN 500 MCG TABLET PO (09:30)
--- NOTE | 2019-06-02 11:15 | DS_ITS ---
DATE OF DISCHARGE: 05/28/2019 DISCHARGE ACUTE REHABILITATION DIAGNOSIS: Primary rehab impairment category of stroke with etiological diagnosis of left pontine stroke. DISCHARGE ACTIVE COMORBID CONDITIONS: History of squamous cell carcinoma of the skin and multiple actinic keratosis. REASON FOR ADMISSION: This 78 years old right-handed male presented to the hospital on 05/11/2019, with the speech difficulties and worsening falls with gait dysfunction. Reportedly, he fell twice on the day prior to presentation and resulted in the trauma to the forehead, though he did not become unconscious, but he had some difficulties in saying the right words. The episode lasted for 2 hours, then resolved. He continued to fall. For that reason, he came to the physician. His initial CT scan of the head revealed no evidence of hemorrhage, but there were notedly few chronic subcortical strokes. CTA of the head and neck revealed 70% left-sided internal carotid artery stenosis. The angiography was not done. MRI demonstrated left pontine stroke. He was transferred to [facility] for further evaluation and was started on aspirin and Plavix and atorvastatin. Plavix was to be given for 21 days post stroke and then just aspirin. He was noted to have Parkinsonian symptoms with hypophonia, left greater than right bradykinesia, rigidity, and left upper extremity resting tremor with postural instability and magnetic gait with very short steps. Neurologist team thought that he had a vascular event, which could have caused the parkinsonian, but he was started on Sinemet 3 times a day and further followup was recommended to [facility]. Transthoracic echocardiogram documented 73% of ejection fraction with no thrombus or vegetation or mass. He passed the modified swallowing test with regular consistency diet and thin liquids. Has been drinking vodka weekly, though he had no withdrawal symptoms. Even then, he was placed on thiamine 100 mg daily. His B12 was low. He was given IM injection for 3 days and then placed on oral B12. He was discharged to the rehab with Lovenox for DVT prophylaxis, but he was ambulating fairly well and Lovenox was not continued in this institution. The patient has not traveled outside the [place] had no contact with someone who has traveled outside in the last 21 days, and has not traveled or been in contact with any person who has traveled outside of the [place] or had a known case of COVID-19. He has no fever and no respiratory illness. LEVEL OF FUNCTION AT THE TIME OF ADMISSION: The patient required the setup for eating, supervision for oral hygiene, substantial assistance for toileting, supervision for bathing, setup for upper body dressing, partial assistance for lower body dressing, supervision for footwear, setup for rolling in bed. He was independent for sit to lying and he required setup assistance for the lying to sitting. He required partial assistance for sit to stand, chair transfer, toilet transfer, car transfer, and 10 feet walking, supervision for 50 feet walking with 2 turns, 150 feet walking, curb or step 4 steps, but required partial assistance for the walking 10 feet on uneven surfaces. He was unable to take 12 steps, required supervision for picking objects. Wheelchair was not applicable. ANTICIPATED REHABILITATION GOALS AT THE TIME OF ADMISSION: To make him independent all the modalities, except require setup for the bathing. LEVEL OF FUNCTION AT THE TIME OF DISCHARGE: He required setup for eating, became independent in oral hygiene and toileting, required supervision for bathing, became independent in all other modalities, except that he required supervision for 12 steps on uneven surfaces. HOSPITAL COURSE: During the hospitalization, he was actively involved in the physical therap
== END 2019-05-28 11:21 | disposition home health service (06) | DRG 57 ==
PROVIDERS: Admitting Provider Psychiatry & Neurology Neurology; PCP Family Medicine; Visit Provider Psychiatry & Neurology Neurology
DX: I69.354 Hemiplegia and hemiparesis following cerebral infarction affecting left non-dominant side (principal); I69.351 Hemiplegia and hemiparesis following cerebral infarction affecting right dominant side; I69.322 Dysarthria following cerebral infarction; R29.6 Repeated falls; F10.20 Alcohol dependence, uncomplicated; G20 Parkinson's disease; K21.9 Gastro-esophageal reflux disease without esophagitis; K76.0 Fatty (change of) liver, not elsewhere classified; M19.90 Unspecified osteoarthritis, unspecified site; Z79.82 Long term (current) use of aspirin; Z87.891 Personal history of nicotine dependence; Z85.828 Personal history of other malignant neoplasm of skin; Z86.711 Personal history of pulmonary embolism; Z79.02 Long term (current) use of antithrombotics/antiplatelets; Z86.718 Personal history of other venous thrombosis and embolism
CPT/HCPCS: 36415; 80048; 80061; 85025; 85055; 87081; 92610; 97110; 97112; 97116; 97162; 97166; 97530; 97535; A9270

== ENCOUNTER 2019-11-08 00:43 | Outpatient (CLI) | payer MEDICARE, OTHER, SELFPAY ==
[2019-11-08 17:26] LABS: SARS-CoV-2 RNA PCR Negative
== END 2019-11-08 00:44 | disposition home or self-care (01) ==
LOC: ANHCOVIDDT 00:44
PROVIDERS: PCP Family Medicine; Visit Provider Plastic Surgery
DX: Z01.812 Encounter for preprocedural laboratory examination (principal); Z11.59 Encounter for screening for other viral diseases
CPT/HCPCS: 87635; C9803; U0003

== ENCOUNTER 2019-11-10 00:59 | Day surgery (SDC) | payer MEDICARE, OTHER, SELFPAY ==
[2019-11-02 16:13] VITALS: BMI 23.1
[2019-11-10] VITALS (9 sets, daily range): BP systolic 130–146; BP diastolic 60–86; PULSE 52–77; RESP 12–20; TEMP 36–36.4; O2SAT 98–100
--- NOTE | 2019-11-10 07:12 | WPDHPUPDATE1 ---
History and Physical Update Update Date/Time: 11/10/19 07:12 History and Physical has been reviewed, including an updated exam of the patient. There are NO changes in the patient's condition. Risks, benefits, and alternatives have been discussed and questions answered. Patient agrees to proceed with procedure.
[2019-11-10] MEDS: LACTATED RINGERS 1,000 ML 30 ML IV CONT ×2 (09:30→12:38)
--- NOTE | 2019-11-10 09:49 | WPDANESEPPF ---
Anes - Initial Pre Proc Eval Procedure: Operation Date: 11/10/19 10:30 Proposed Procedures p Left Partial Palmar Fasciectomy - Fredy Garcia MD Date/Time: 11/10/19 09:49 Surgeon: Fredy Garcia MD Pre Op Diagnosis: Dupuytrens Contraction Patient Data Age: 78 Gender: M Height: 6 ft Weight: 77.2 kg Last Vital Signs Temp 36.0 C L 11/10/19 09:44 Pulse 62 11/10/19 09:44 Resp 20 11/10/19 09:44 BP 145/61 H 11/10/19 09:44 Pulse Ox 100 11/10/19 09:44 Allergies Allergy/AdvReac Type Severity Reaction Status Date / Time No Known Allergies Allergy Unknown Verified 11/02/19 15:45 Home Medications Medication Instructions Recorded Confirmed Type aspirin 81 mg PO QAM 05/17/19 11/02/19 History cyanocobalamin (vitamin B-12) 100 mcg PO DAILY 05/17/19 11/02/19 History atorvastatin 80 mg PO HS #30 tablet 05/27/19 11/02/19 Rx carbidopa-levodopa [Sinemet] 0.5 tablet PO TID 11/02/19 11/02/19 History Patient hx anesthesia problems: none Family hx anesthesia problems: none PMFSH Past Medical History Medical History Alcoholism Arthritis DVT (deep venous thrombosis) Fatty liver GERD (gastroesophageal reflux disease) Parkinsons disease Pneumonia Pulmonary embolism Seasonal allergies Skin cancer Skull fracture Surgical History Surgical History H/O local excision of skin lesion History of tonsillectomy Family History Family History Father Congestive heart failure Social History Social History Smoking packs per day: 1 Smoking cigarettes per day: 20.0 Years smoked: 20 Smoking pack-years: 20.00 Smoking status: Former smoker Tobacco type: cigarettes Second hand tobacco smoke exposure: Yes Smoking end date: 02/23/83 Additional smoking assessment comments: quit in 1971 Alcohol intake: current Drinks per week: 7 Substance use: never Substance use type: does not use Living arrangements: with family Gender identity (if verbalized by the patient): Male Spiritual care concerns: No Agree to blood products: Yes Anes - Eval Final PreProcedure Day of Procedure 11/10/19 09:49 Patient weight: normal Heart: regular rate and rhythm Lungs: decreased breath sounds Airway: Mallampati scale class II Neurological: other (alert) Last oral intake: >/= 8 hours ASA classification: III Emergent: no Anesthetic plan: proceed Anesthesia type and monitoring: general GIVS and standard monitoring Informed Consent: The patient's anesthetic plan and its attendant risks and benefits were discussed with the patient/family/POA. Questions were solicited and answers provided to the satisfaction of the patient/family/POA.
[2019-11-10] MEDS: BACITRACIN OINTMENT 15 GM TUBE 1 APPLIC TOPICAL (10:40)
[2019-11-10] MEDS: LIDO 1%/EPINEPHRINE 1:100,000 20 ML VIAL INFILTRATE (10:40)
--- NOTE | 2019-11-10 10:56 | P.OP_ITS ---
Procedure Note - Detailed Date of procedure: 11/10/19 Pre-op diagnosis: Dupuytrens Contraction Post-op diagnosis: same Procedure performed: L palmar fasciectomy. Anesthesia: GLMA Surgeon: Fredy Garcia MD Celebrity Chef Entrepreneur Media Personality: leeanna Drains: No Packing: No Pathology: none sent Complications: No immediate complications Condition: stable Disposition: PACU
--- NOTE | 2019-11-10 12:52 | P.OP_ITS ---
Procedure Note - Detailed Date of procedure: 11/10/19 Pre-op diagnosis: Dupuytrens Contraction Post-op diagnosis: same Procedure performed: Left partial palmar fasciectomy Description of procedure: The left palmar hand was marked in preop. The patient was taken to the operating room and placed supine on the operating table. A time-out was held and confirmed. He was given general anesthesia with an LMA. The left upper extremity was prepped and draped in normal fashion. The hand was carefully examined and markings placed on the palm for incisions. The sites were infiltrated with 1% lidocaine with epinephrine. The tourniquet was in flated to 250 mmHg. The incisions in the palm and in palmar little finger were incised. Skin flaps were thinly elevated. The neurovascular bundles were identified on the relevant common and digital bundles.. The fascia was carefully to isolate the contracted cords. These were removed adjacent normal fat was preserved. The neurovascular bundles were preserved. The resection was carried out until the metacarpophalangeal and the proximal interphalangeal joints could be extended to 0?. At that point the Z-plasties were cut. The wound was closed with interrupted running 4-0 nylon suture. The tourniquet was released part way through that procedure of them bleeding is. By the end of the case. A small bulky bandage was applied. No additional local anesthetic was given. He is discharged with instructions in wound care and follow-up has a prescription for tramadol 12. Surgeon: Fredy Garcia MD
--- NOTE | 2019-11-10 15:19 | SUR.PHASEII ---
[address] beckham of shadowing on lt hand dressing. ok for me to change dressing. dressing changed.
== END 2019-11-10 14:50 | disposition home or self-care (01) ==
PROVIDERS: Visit Provider Plastic Surgery
PROC: (CPT 26045; principal; 2019-11-10 10:30)
DX: M72.0 Palmar fascial fibromatosis [Dupuytren] (principal); K76.0 Fatty (change of) liver, not elsewhere classified; K21.9 Gastro-esophageal reflux disease without esophagitis; G20 Parkinson's disease; Z86.711 Personal history of pulmonary embolism; Z79.82 Long term (current) use of aspirin; Z87.891 Personal history of nicotine dependence
CPT/HCPCS: 26121; A9270; J1100; J2250; J2405; J2704; J3010; J7120

== ENCOUNTER 2020-04-12 12:46 | Outpatient (CLI) | payer MEDICARE, OTHER, SELFPAY ==
--- NOTE | ~2020-04-12 | US_ITS ---
EXAMINATION: US carotid duplex BI DATE: 04/12/2020 14:19 INDICATION: CVA TECHNIQUE: Grayscale, color Doppler, and pulsed Doppler images of the cervical carotid arteries were obtained. The degree of vessel stenosis is placed in one of the following categories: normal, <50%, 5 0-69%, >=70% but less than near-occlusion, near-occlusion, or total occlusion. Note that percent sten osis relative to normal distal artery lumen diameter is indirectly measured from velocity measurement s as described by Stephon, et al. Radiology 2003; 229:340-346. Notes: Normal: Peak systolic velocity <125 centimeters/sec and no plaque <50%. Peak systolic velocity <125 ( EDV <40; ICA/CCA PSV ratio <2.0; used these factors only a tandem lesions or low cardiac output or co ntralateral disease) 50-69 %: PSV 125-230 (EDV 40-100; ratio 2-4) >= 70% but less than near occlusion: PSV greater than 230 (EDV > 100; ratio> 4.0) Near Occlusion: PSV that is variable; markedly narrowed lumen Occlusion: Absent flow on color/spectral Doppler and no lumen on cornejo scale. COMPARISON: None. FINDINGS: RIGHT: The right common carotid artery (CCA) peak systolic velocity (PSV) is 96 cm/s. The right internal car otid artery (ICA) PSV is 72 cm/s. The right ICA end-diastolic velocity (EDV) is 15 cm/s. The right IC A/CCA PSV ratio is 0.74. The external carotid artery (ECA) PSV is 102 cm/s. There is antegrade flow i n the right vertebral artery. LEFT: The left CCA PSV is 83 cm/s. The left ICA PSV is 89 cm/s. The left ICA EDV is 18 cm/s. The left ICA/C CA PSV ratio is 1.1. The ECA PSV is 229 cm/s. There is antegrade flow in the left vertebral artery. IMPRESSION: 1. Less than 50% stenosis in the right internal carotid artery by sonographic criteria. 2. Less than 50% stenosis in the left internal carotid artery by sonographic criteria. Reviewed, dictated and finalized at location A. UBER IMPRESSION: 1. Less than 50% stenosis in the right internal carotid artery by sonographic deena lizama. 2. Less than 50% stenosis in the left internal carotid artery by sonographic trista mariano.
== END 2020-04-12 12:47 | disposition home or self-care (01) ==
PROVIDERS: PCP Family Medicine
DX: I63.89 Other cerebral infarction (principal); I65.23 Occlusion and stenosis of bilateral carotid arteries
CPT/HCPCS: 93880

== ENCOUNTER 2020-04-25 10:29 | Outpatient (CLI) | payer MEDICARE, OTHER, SELFPAY | END 2020-04-25 10:30 | disposition home or self-care (01) | LOC: ANHCOVIDVC 10:29 | PROVIDERS: PCP Family Medicine | DX: Z23 Encounter for immunization (principal) | CPT/HCPCS: 0001A; 91300 ==

== ENCOUNTER 2020-05-16 10:18 | Outpatient (CLI) | payer MEDICARE, OTHER, SELFPAY | END 2020-05-16 10:19 | disposition home or self-care (01) | LOC: ANHCOVIDVC 10:18 | PROVIDERS: PCP Family Medicine | DX: Z23 Encounter for immunization (principal) | CPT/HCPCS: 0002A; 91300 ==

== ENCOUNTER 2021-01-23 19:29 | Inpatient (IN) | payer MEDICARE, OTHER, SELFPAY ==
[2021-01-23] VITALS (31 sets, daily range): BP systolic 100–158; BP diastolic 71–132; PULSE 93–137; RESP 15–21; O2SAT 96–100
--- NOTE | ~2021-01-23 | CT_ITS ---
EXAMINATION: CTA chest PE protocol DATE: 01/24/2021 08:24 TOXICOLOGY SUPERVISOR INDICATION: Hypoxia. Shortness of breath. TECHNIQUE: Computed tomographic angiography (CTA) of the chest was performed with 100 mL Omnipaque-35 0 intravenous contrast. The dose-length product was 757.88 mGy-cm. Maximum intensity projection 3D-re constructions of the aorta and other arteries were constructed by the technologist on a separate work station. Automated exposure control and iterative reconstruction technique were employed. COMPARISON: CT dated 03/27/2015. FINDINGS: There is filling defect in left lower lobe segmental and subsegmental pulmonary arteries, c onsistent with pulmonary embolism, moderate thrombus burden. Small bilateral pleural effusions. There is mediastinal lymphadenopathy. There is dependent atelectasis. There is an endotracheal tube presen t. There is a 3-4 mm nonobstructing left renal stone. Cardiomegaly. Moderate atherosclerosis of the a kem and coronary arteries. There is a 3.3 cm low-density lesion in the left adrenal gland, consisten t with adenoma. There is subtle bilateral peripheral interlobular septal thickening which may relate to mild edema or usual interstitial pneumonitis. IMPRESSION: 1. Left lower lobe segmental and subsegmental pulmonary embolism, moderate thrombus burden. 2: Small pleural effusions with underlying compressive atelectasis. Reviewed, dictated and finalized at location B. COLOGY SUPERVISOR IMPRESSION: 1. Left lower lobe segmental and subsegmental pulmonary embolism, moderate thro mbus burden. 2: Small pleural effusions with underlying compressive atelectasis.
--- NOTE | ~2021-01-23 | XR_ITS ---
EXAMINATION: XR chest 1V portable DATE: 01/25/2021 06:27 INDICATION: Respiratory failure TECHNIQUE: frontal view of the chest was obtained. COMPARISON: Chest radiograph dated 01/24/2021 FINDINGS: Endotracheal tube tip 4.7 cm above the nicolas. Nasogastric tube extends below the left hemidiaphragm with distal tip collimated off the study. Skin folds project over the lateral aspect of both lungs. Persistent mild opacities in bilateral lowe r lung zones. No pleural effusion or pneumothorax. Cardiomegaly. IMPRESSION: 1. Mild opacities in the lower lung zones which could represent atelectasis and/or pneumonia. 2. Cardiomegaly. Reviewed, dictated and finalized at location A. GER OF HEALTH IMPRESSION: 1. Mild opacities in the lower lung zones which could represent atelectasis and /or pneumonia. 2. Cardiomegaly.
--- NOTE | ~2021-01-23 | CT_ITS ---
EXAMINATION: CT cervical spine wo con DATE: 01/23/2021 20:05 INDICATION: Neck injury. TECHNIQUE: Computed tomography (CT) of the cervical spine was performed without intravenous contrast. Automated exposure control and iterative reconstruction technique were employed. The dose-length pro duct was 224.29 mGy-cm. COMPARISON: None FINDINGS: There is mild scarring at the lung apices. An endotracheal tube is noted. C1 ring is ununit ed posteriorly, which is a normal variant. Bone alignment is normal. Vertebral body heights are dangelo l. There is mildly decreased disc height at C2-C3. There are bridging endplate osteophytes at C4-C5 a nd from C6 to at least T2, consistent with diffuse idiopathic skeletal hyperostosis (DISH). The follo wing disc levels are specifically discussed: C2-C3: There is mild bilateral uncovertebral joint osteoarthritis. There is severe bilateral facet sarah int osteoarthritis. There is mild right neural foraminal stenosis. There is no central canal stenosis . C3-C4: There is moderate bilateral uncovertebral joint osteoarthritis. There is severe bilateral face t joint osteoarthritis. There is mild bilateral neural foraminal stenosis. There is no central canal stenosis. C4-C5: There is mild left uncovertebral joint osteoarthritis. There is severe bilateral facet joint o steoarthritis. There is no neural foraminal stenosis. There is no central canal stenosis. C5-C6: There is mild bilateral uncovertebral joint osteoarthritis. There is severe bilateral facet sarah int osteoarthritis. There is no neural foraminal stenosis. There is no central canal stenosis. C6-C7: There is no uncovertebral joint osteoarthritis. There is mild right and severe left facet join t osteoarthritis. There is mild left neural foraminal stenosis. There is no central canal stenosis. C7-T1: There is no uncovertebral joint osteoarthritis. There is moderate and mild left facet joint os teoarthritis. There is no neural foraminal stenosis. There is no central canal stenosis. IMPRESSION: 1. No fracture. 2. Mild cervical spondylosis. Reviewed, dictated and finalized at location A. LESS NETWORK ENGINEER
--- NOTE | ~2021-01-23 | XR_ITS ---
EXAMINATION: XR chest ET placement DATE: 01/24/2021 20:55 INDICATION: Cardiac arrest. TECHNIQUE: A single frontal view of the chest was obtained. COMPARISON: Chest single view 01/23/2021, chest CT 01/23/2021 FINDINGS: There are widespread peripheral reticular opacities in the lungs. There are patchy airspace opacities in the lower lung zones. No pleural effusion or pneumothorax. Cardiomegaly is noted. The e ndotracheal tube tip is 5.7 cm above the nicolas. The nasogastric tube tip is in the stomach. IMPRESSION: 1. Worsened diffuse lung disease, likely mild pulmonary edema and basilar atelectasis versus pneumoni a. 2. Cardiomegaly. Reviewed, dictated and finalized at location A. AGER HELPER IMPRESSION: 1. Worsened diffuse lung disease, likely mild pulmonary edema and basilar atele ctasis versus pneumonia. 2. Cardiomegaly.
--- NOTE | ~2021-01-23 | CT_ITS ---
EXAMINATION: CT brain wo con DATE: 01/23/2021 20:04 INDICATION: Altered mental status. Head injury. TECHNIQUE: Computed tomography (CT) of the head was performed without intravenous contrast. The mA wa s adjusted according to patient size. Iterative reconstruction technique was employed. The dose-lengt h product was 681.00 mGy-cm. COMPARISON: Head CT 05/12/2019 FINDINGS: There are old infarcts in the bilateral basal ganglia. There is small old infarct in right cerebellum. There are scattered areas of low attenuation in the cerebral white matter. There is no in tracranial hemorrhage, acute infarction, or abnormal intracranial mass lesion. The ventricles are nor mal in size. There are likely changes of left ocular lens replacement surgery. There is mild mucosal thickening in the paranasal sinuses. The mastoid air cells are normal. IMPRESSION: 1. 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 2. Moderate nonspecific cerebral white matter disease, which likely represents chronic small vessel i schemic disease. Reviewed, dictated and finalized at location A. AL TESTER IMPRESSION: 1. 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 2. Moderate nonspecific cerebral white matter disease, which likely represents chronic small vessel ischemic disease.
--- NOTE | ~2021-01-23 | XR_ITS ---
EXAMINATION: XR chest ET placement DATE: 01/23/2021 19:41 INDICATION: Intubation. TECHNIQUE: A single frontal view of the chest was obtained. COMPARISON: Chest single view 03/28/2015, chest CT 03/27/2015 FINDINGS: There are interstitial opacities in the lungs, consistent with mild pulmonary edema. No ple ural effusion or pneumothorax. The heart size is normal. The endotracheal tube tip is 4.9 cm above th e nicolas. IMPRESSION: 1. Mild pulmonary edema. Reviewed, dictated and finalized at location A. NING DEVELOPMENT MANAGER IMPRESSION: 1. Mild pulmonary edema.
--- NOTE | ~2021-01-23 | XR_ITS ---
EXAMINATION: XR abdomen/kub 1V DATE: 01/24/2021 20:55 INDICATION: Orogastric tube placement. TECHNIQUE: A supine view of the abdomen was obtained. COMPARISON: Chest CT 01/23/2021 FINDINGS: The lower abdomen is excluded. There are no dilated loops of bowel. The nasogastric tube ti p is in the stomach. IMPRESSION: 1. Nasogastric tube tip in the stomach. Reviewed, dictated and finalized at location A. NESS AMBASSADOR
--- NOTE | ~2021-01-23 | XR_ITS ---
EXAMINATION: XR abdomen NG/feed tube insert DATE: 01/24/2021 03:26 INDICATION: Orogastric tube placement TECHNIQUE: A supine view of the abdomen and lower chest was obtained for evaluation of feeding tube placement. COMPARISON: None. FINDINGS: Is a gastric tube tip in proximal side port in the body of the stomach. With very small bilateral ple ural effusions and minimal atelectasis at the lung bases. Excreted contrast in the bilateral renal co llecting systems. IMPRESSION: 1. Nasogastric tube in the stomach. Reviewed, dictated and finalized at location A. RANCE AUDITOR
--- NOTE | ~2021-01-23 | XR_ITS ---
EXAMINATION: XR chest 1V portable DATE: 01/24/2021 21:34 INDICATION: Endotracheal tube advancement. TECHNIQUE: A single frontal view of the chest was obtained. COMPARISON: Chest single view at 8:38 PM FINDINGS: Skinfolds overlie the chest bilaterally. There is a diffuse interstitial pattern in the malissa gs. There are airspace opacities in left lower lung zone. No pleural effusion or pneumothorax. Cardio megaly is evident. The endotracheal tube tip is 5.6 cm above the nicolas. The nasogastric tube tip is beyond the inferior margin of the radiograph, but at least to the stomach. IMPRESSION: 1. Mild pulmonary edema. 2. Mild airspace opacities in left lower lung zone, consistent with atelectasis versus pneumonia. 3. Cardiomegaly. Reviewed, dictated and finalized at location A. PRESSING MACHINE OPERATOR
--- NOTE | ~2021-01-23 | US_ITS ---
EXAMINATION:US venous doppler LE BI INDICATION:Pulmonary embolism. TECHNIQUE: Multiple grayscale, color flow and Doppler images of the right and left lower extremity de ep venous systems were obtained and reviewed. COMPARISON:Ultrasound dated 03/27/2015 FINDINGS: There is deep venous thrombosis of the right femoral and popliteal veins as well as the lef t popliteal and peroneal veins. The remainder of the lower extremity veins are patent. IMPRESSION: 1: Bilateral deep venous thrombosis involving the right femoral, right popliteal, left popliteal and left peroneal veins. Reviewed, dictated and finalized at location B. LE BRANDER IMPRESSION: 1: Bilateral deep venous thrombosis involving the right femoral, right poplitea l, left popliteal and left peroneal veins.
--- NOTE | 2021-01-23 19:29 | ECG_ITS ---
Measurements Intervals [place] Rate: 111 P: ME: 0 QRS: 24 QRSD: 164 T: -39 QT: 344 QTc: 468 Interpretive Statements ATRIAL FIBRILLATION WITH RAPID VENTRICULAR RESPONSE FREQUENT VENTRICULAR PREMATURE COMPLEXES RIGHT BUNDLE BRANCH BLOCK ABNORMAL ECG Electronically Signed On 01-24-2021 15:24:41 WAITER/WAITRESS HEAD by Kenyon Gonsales D.O.
--- NOTE | 2021-01-23 19:37 | ED.AMS ---
HPI - Altered Mental Status General Chief Complaint: Altered Mental Status Stated Complaint: unspecified Time Seen by Provider: 01/23/21 19:33 Source: EMS Mode of arrival: EMS Limitations: clinical condition History of Present Illness HPI narrative: Patient is a 80-year-old male brought in by EMS after he became unresponsive at home, witnessed by . According to EMS was in the other room when she heard a big thump found him on the floor unresponsive. EMS states that when they arrived patient was unresponsive with agonal respirations and was intubated at the scene. Blood sugar upon arrival in the ER was 124. Related Data Home Medications Medication Instructions Recorded Confirmed aspirin 81 mg PO QAM 05/17/19 10/11/20 cholecalciferol (vitamin D3) 75 75 mcg PO DAILY 06/11/20 10/11/20 mcg (3,000 unit) tablet Allergies Allergy/AdvReac Type Severity Reaction Status Date / Time No Known Allergies Allergy Unknown Verified 01/24/21 00:37 Review of Systems Review of Systems: ROS unobtainable: Yes unobtainable due to mental status PMFSH Past Medical History Medical History (Updated 01/24/21 @ 01:35 by Fredy Blackman MD) Alcoholism Arthritis DVT (deep venous thrombosis) Fatty liver GERD (gastroesophageal reflux disease) Parkinsons disease Pneumonia Pulmonary embolism Seasonal allergies Skin cancer Skull fracture Surgical History Surgical History H/O local excision of skin lesion History of tonsillectomy Family History Family History Father Congestive heart failure Mother Heart disease Breast cancer Sibling Breast cancer Social History Social History Smoking packs per day: 1 Smoking cigarettes per day: 20.0 Years smoked: 20 Smoking pack-years: 20.00 Tobacco type: cigarettes Second hand tobacco smoke exposure: Yes Additional smoking assessment comments: quit in 1971 Alcohol intake: current Drinks per week: 7 Substance use: never Substance use type: does not use Gender identity (if verbalized by the patient): Male Spiritual care concerns: No Agree to blood products: Yes Exam Const: Other: Severe distress, unresponsive HENMT: General nose exam: Normal nares present, no nasal discharge noted and no epistaxis Face and sinus: normal facial exam Mouth: Yes Normal oral and palatal mucosa present and Yes dry mucous membranes Eyes: Conjunctivae: conjunctivae normal Neck: Neck: normal visual inspection Chest: Chest palpation & inspection: normal inspection of the chest Resp: Effort & Inspection: labored Other: Pt placed on a vent Cardio: Rate: tachycardic Rhythm: regular rhythm Heart sounds: Murmur heart sound present GI: GI Palp: Yes Soft to palpation Skin: General skin exam: normal color Rashes: rash noted Neuro: Other: Unresponsive Extrem: General: normal to inspection Course Vital Signs Vital signs: Vital Signs Pulse Rate 125 H 01/23/21 19:30 Respiratory Rate 18 01/23/21 19:30 Blood Pressure 100/71 01/23/21 19:30 Pulse Oximetry 99 01/23/21 19:30 Pulse Rate 106 H 01/24/21 01:06 Respiratory Rate 20 01/24/21 01:06 Blood Pressure 120/98 H 01/24/21 01:06 Pulse Oximetry 100 01/24/21 01:06 MDM - Altered Mental Status MDM Narrative Medical decision making narrative: CBC within normal limits. Chemistry within normal limits. Troponin normal. EKG, heart rate 111, atrial for with RVR, new onset. CT head no acute intracranial process, old infarcts bilateral basal ganglia and right cerebellum. CTA chest positive for left small pulmonary emboli, no saddle embolus, no right heart strain. Patient started on heparin drip. Discussed with Dr. Campoverde, and accepted the consult. Discussed with the hospitalist and accepted the admit. Differential Diagno
--- NOTE | 2021-01-23 19:58 | PC.NURSE ---
Pt back from CT scan of head
[2021-01-23] MEDS: LACTATED RINGERS 1,000 ML 999 ML IV CONT (20:02)
[2021-01-23 20:14] LABS: Alveolar/Arterial O2 Gradient 169.3 mmHg; Base Excess ABG 0.1 mEq/l (+/-2.0); Carboxyhemoglobin 0.3 % THb (0-2.0); Device VENTILATOR; Fractional Inspired Oxygen 100 %; HCO3 ABG 23.2 mEq/l (22.0-26.0); Methemoglobin ABG 0.5 %THb (0-1.5); Modified Allen's Test Pass; Oxygen Content ABG 19.6 %vol (16.0-22.0); Oxygen Saturation ABG 99.9 % (95.0-100.0); Oxyhemoglobin 98.3 % THb (90.0-100.0); PCO2 ABG 33.1 mmHg (35.0-45.0); PO2 ABG 510.6 mmHg (80.0-100.0); PO2 FiO2 Ratio Arterial Blood 5.11 %; Reduced Hemoglobin 0.9 %THb (0-5.0); Site Drawn RIGHT RADIAL; Total Hemoglobin 13.2 g/dL (12.0-18.0); pH ABG 7.464 (7.350-7.450)
[2021-01-23 20:15] LABS: Basophils Percent Auto 0.5 % (0.2-1.2); Eosinophils Absolute Auto 0.1 K/mm3 (0-0.3); Eosinophils Percent Auto 1.3 % (0-4.4); Hematocrit 37.4 % (42.0-52.0); Hemoglobin 12.3 g/dL (14.0-18.0); Immature Granulocyte Absolute 0.04 K/mm3 (0.00-0.031); Immature Granulocyte Percent A 0.6 % (0-0.5); Immature Platelet Fraction Pct 3.4 % (0.9-11.2); Lymphocytes Absolute Auto 1.01 K/mm3 (0.9-3.2); Lymphocytes Percent Auto 15.8 % (18.3-44.2); Mean Corpuscular HGB Conc 32.9 g/dl (32-36); Mean Corpuscular Hemoglobin 29.1 pg (26-34); Mean Corpuscular Volume 88.6 fl (80-100); Mean Platelet Volume 10.6 fl (7.4-10.4); Monocytes Absolute Auto 0.4 K/mm3 (0.1-0.6); Monocytes Percent Auto 6.9 % (2.6-8.5); Neutrophils Absolute Auto 4.8 K/mm3 (1.3-6.7); Neutrophils Percent Auto 74.9 % (45.5-73.1); Platelet Count Result 135 k/mm3 (150-375); Red Blood Count 4.22 M/mm3 (4.6-6.20); Red Cell Distribution Width 12.5 % (11.5-14.5); White Blood Count 6.4 K/mm3 (4.5-10.0)
[2021-01-23 20:15] LABS: Arterial Blood Gas PEEP 5 cmH2O; Arterial Blood Gas Tidal Volume 480 ml; Arterial Blood Gas Vent Mode CMV; Arterial Blood Gas Ventilator rate 20 /MIN
--- NOTE | 2021-01-23 20:19 | PC.NURSE ---
Respiratory at bedside, change to 50% FiO2
[2021-01-23 20:23] LABS: Lactic Acid Reflex 1.7 mmol/L (0.7-2.1)
[2021-01-23 20:24] LABS: Alanine Aminotransferase 17 U/L (4-50); Alkaline Phosphatase 78 U/L (38-126); Anion Gap 8 mmol/L (8-16); Aspartate Amino Transferase 56 U/L (17-59); Blood Urea Nitrogen 10 mg/dL (9-20); Calcium 8.8 mg/dL (8.4-10.2); Carbon Dioxide 26 mmol/L (22-30); Chloride 106 mmol/L (98-107); Estimated Glomerular Filt Rate > 60; Glucose 127 mg/dL (65-110); Potassium 3.5 mmol/L (3.4-5.0); Sodium 140 mmol/L (137-145)
[2021-01-23 20:25] LABS: INR 1.1; Partial Thromboplastin Time 29.7 SECONDS (22.3-36.8); Prothrombin Time 13.8 Seconds (11.1-14.7)
[2021-01-23] MEDS: SUCCINYLCHOLINE CHLORIDE 20 MG/ML 10 ML VIAL 80 MG IV PUSH (20:32)
[2021-01-23 20:36] LABS: Troponin I 0.025 ng/mL (0.000-0.034)
[2021-01-23] MEDS: PROPOFOL IV EMULSION 100 ML 2.32 MG IV CONT (21:20)
--- NOTE | 2021-01-23 21:31 | PC.NURSE ---
Addendum entered by Reina Mckinnon RN 01/23/21 21:34: Amend: error -- increased to 0.6 mg/ kg / hr -- running at 4.6 mL/ hour Original Note: Respiratory at bedside suctioning patient and adjusting vent setting, Pt awake, blinking eyes and coughing with suction. MD aware, verbal order to increase propofol to 10 mcg/kg/ hr -- 4.6 mL/ Hr
--- NOTE | 2021-01-23 22:36 | PC.NURSE ---
Pt remains restless, fighting tube and blinking, MD aware, verbal order to increase drip to 20 mcg/ kg / hr -- running at 9.2 mL / hour increased from 10 mcg/kg/ hour (4.6 mL/ hour)
--- NOTE | 2021-01-23 22:39 | PC.NURSE ---
Corrected -- ordered increase for 20 mcg/kg/ hour rounds to 9.3 mL/hour. Currently running at that rate
--- NOTE | 2021-01-23 23:08 | PC.NURSE ---
Clarified dosage with SILVIA Bynum to give 4 mg IV ativan as order is entered.
[2021-01-23] MEDS: LORazepam INJ (*CRX) 2 MG/ML VIAL 4 MG IV PUSH (23:09)
--- NOTE | 2021-01-23 23:30 | PC.NURSE ---
Pt to CTA scan at this time with LUL Huang.
[2021-01-24] VITALS (38 sets, daily range): BP systolic 93–136; BP diastolic 63–98; PULSE 28–120; RESP 13–24; TEMP 36.4–37.8; O2SAT 97–100; BMI 23.1
--- NOTE | 2021-01-24 | ECHO_ITS ---
Patient Info Name: Eren Kulkarni Age: 80 years : 1940 Gender: Male Ht: 72 in Wt: 170 lbs BSA: 1.98 m2 HR: 118 bpm BP: 96 / 65 mmHg Technical Quality: Fair Exam Date: 01/24/2021 11:14 AM Exam Location: [facility] Pulmonary Exam Room: ICU 11 Patient Status: Inpatient Admit Date: 01/24/2021 Staff Ordering Physician: Zbigniew Campoverde MD Marketing Operations Associate: Isabella Harmon RDCS Attending Provider: Anish Montes MD Exam Type: CA echo dop color flow w con Study Info Indications - PE Complete two-dimensional, color flow and Doppler transthoracic echocardiogram is performed with contrast to opacify the left ventricle and to improve the deliniation of the left ventricle endocardial borders. Contrast/Agitated Saline Contrast/Ag. Saline: Definity Amount: 1.00 ml Administered By: Jose Lujan RN Existing IV Access: Yes IV Access Condition: patent with no signs of infiltration Summary 1. Left ventricular chamber dimension is mildly enlarged. 2. Left ventricular systolic function is moderately reduced, estimated at 30-35%. 3. Right ventricular chamber dimension is normal. 4. Right ventricular systolic function is normal. 5. Left atrial chamber dimension is mildly enlarged. 6. There is severe aortic valve stenosis with a peak velocity of 384.17 cm/s, mean gradient of 36 mmHg, and aortic valve area of 0.83 cm2. 7. There is severe aortic valve calcification. 8. There is mild mitral valve regurgitation. 9. There is mild tricuspid valve regurgitation.RVSP 42 mmhg. Left Ventricle Left ventricular chamber dimension is mildly enlarged. Left ventricular systolic function is moderately reduced, estimated at 30-35%. There is no increased left ventricular wall thickness. The left ventricular diastolic function is abnormal. Right Ventricle Right ventricular chamber dimension is normal. Right ventricular systolic function is normal. Left Atria Left atrial chamber dimension is mildly enlarged. Right Atria Right atrial chamber dimension is normal. Atrial Septum Intact interatrial septum visualized by color flow imaging. Aortic Valve There is severe aortic valve stenosis with a peak velocity of 384.17 cm/s, mean gradient of 36 mmHg, and aortic valve area of 0.83 cm2. There is no aortic valve regurgitation. There is severe aortic valve calcification. Pulmonic Valve The pulmonic valve is not well visualized. There is no pulmonic valve stenosis. There is no pulmonic regurgitation. Mitral Valve The mitral valve has normal leaflets. There is no mitral valve stenosis. There is mild mitral valve regurgitation. Tricuspid Valve The tricuspid valve leaflets are normal. There is no significant tricuspid valve stenosis. There is mild tricuspid valve regurgitation.RVSP 42 mmhg. Pericardium/Pleural The pericardium appears normal. There is no pericardial effusion. Inferior Vena Cava Normal inferior vena cava with >50% collapse upon inspiration consistent with normal right atrial pressure, 5 mmHg. Aorta The aortic root size at the sinus of Valsalva is normal. Left Ventricular Outflow Tract Name Value Normal LVOT 2D LVOT Diameter
[2021-01-24] MEDS: LACTATED RINGERS 1,000 ML 150 ML IV CONT (00:36)
--- NOTE | 2021-01-24 00:48 | PC.NURSE ---
IV in right hand non-patient prior to patient going to CT scan, discontinued prior to radiology. . New IV started in right AC, flushed easily without resistance, confirmed placement. RN, tech, and respiratory assisted patient to CT scan on ventilator. IV in right AC infiltrated with IV contrast. Heat applied to area of infiltration, new line started in left AC and CTA was completed. IV from right AC removed. MD aware of infiltration, area remains with warm contrast. New nurse aware.
[2021-01-24] MEDS: HEPARIN SODIUM 5,000 UNITS/ML VIAL 5000 UNITS IV PUSH (02:11)
[2021-01-24] MEDS: HEPARIN SOD/D5W 100 UNITS/ML 25,000 UNITS/250 ML BAG 14 UNITS IV CONT ×2 (02:12→04:08)
--- NOTE | 2021-01-24 02:43 | PM.IMHP ---
H&P: HPI History of Present Illness Date/Time: 01/24/21 02:43 Chief Complaint: Unresponsiveness Narrative: Patient is a 80-year-old male who was brought in by EMS. EMS was called as he became unresponsive well as sudden as witnessed by his at home. mentioned that she heard a big thump and found him on the floor unresponsive. When EMS arrived the patient was and going all breathing with sign language teacher showing SVT. He was intubated at the scene promptly. He was then brought to the ED for evaluation. Evaluation in the ED showed he was in atrial fibrillation with rapid ventricular rate which is new for him. He was maintained on mechanical ventilation and was sedated. His troponin was normal on arrival. CT head was done which came back negative along with cervical spine CT. Chest x-ray showed mild pulmonary edema this is followed up with CTA which showed left segmental PE. He has then been started on heparin drip and is admitted to the ICU for further evaluation and management. No further history could be obtained from the patient because of his mental status and not available at this time. Review of Systems Review of Systems: ROS unobtainable: Yes unobtainable due to mental status [facility] Past Medical History Medical History (Updated 01/24/21 @ 02:55 by Anish Montes MD) Alcoholism Arthritis DVT (deep venous thrombosis) Fatty liver GERD (gastroesophageal reflux disease) Parkinsons disease Pneumonia Pulmonary embolism Seasonal allergies Skin cancer Skull fracture Surgical History Surgical History H/O local excision of skin lesion History of tonsillectomy Family History Family History Father Congestive heart failure Mother Heart disease Breast cancer Sibling Breast cancer Social History Social History Second hand tobacco smoke exposure: Yes Additional smoking assessment comments: quit in 1971 Alcohol intake: unknown Drinks per week: 7 Substance use: never Substance use type: does not use Gender identity (if verbalized by the patient): Male Spiritual care concerns: No Agree to blood products: Yes Meds Home Medications and Allergies Home Medications Medication Instructions Recorded Confirmed Type aspirin 81 mg PO QAM 05/17/19 10/11/20 History atorvastatin 80 mg PO HS #30 tablet 05/27/19 10/11/20 Rx cholecalciferol (vitamin D3) 75 75 mcg PO DAILY 06/11/20 10/11/20 History mcg (3,000 unit) tablet Allergies Allergy/AdvReac Type Severity Reaction Status Date / Time No Known Allergies Allergy Unknown Verified 01/24/21 00:37 Vital Signs Vital Signs - 24 hr 01/23/21 19:30 01/23/21 19:40 01/23/21 20:08 Pulse Rate 125 H 119 H Respiratory Rate 18 Blood Pressure 100/71 Pulse Oximetry 99 100 96 01/23/21 20:16 01/23/21 20:17 01/23/21 20:20 Pulse Rate 114 H 115 H 118 H Respiratory Rate 16 15 19 Blood Pressure 133/99 H 129/84 Pulse Oximetry 100 01/23/21 20:30 01/23/21 20:31 01/23/21 20:45 Pulse Rate 112 H 115 H 114 H Respiratory Rate 20 16 20 Blood Pressure 145/93 H Pulse Oximetry 01/23/21 20:46 01/23/21 20:47 01/23/21 21:00 Pulse Rate 118 H 113 H 125 H Respiratory Rate 20 20 20 Blood Pressure 136/102 H 158/110 H 155/132 H Pulse Oximetry 01/23/21 21:01 01/23/21 21:15 01/23/21 21:16 Pulse Rate 137 H 124 H 112 H Respiratory Rate 21 H 20 20 Blood Pressure 142/117 H Pulse Oximetry 01/23/21 21:20 01/23/21 21:30 01/23/21 21:32 Pulse Rate 115 H 117 H 122 H Respiratory Rate 20 21 H 18 Blood Pressure 129/119 H Pulse Oximetry 01/23/21 21:45 01/23/21 21:46 01/23/21 22:00 Pulse Rate 129 H 118 H 117 H Respiratory Rate 20 20 20 Blood Pressure 121/108 H 144/111 H Pulse Oximetry 01/23/21 22:01 01/23/21 22:07 01/23/21 22:15 Puls
--- NOTE | 2021-01-24 03:27 | ADMGEN ---
This patient, Eren Kulkarni, was admitted to Intensive Care Unit-11. Patient/family oriented to hospital policies and general routines including ID bracelet, bed and alarms, visiting hours, pain management, procedures, bathroom and other care routines, personal items, smoking policy, room service/diet, and visiting hours. Information on how to activate the Rapid Response Team has been discussed. Patient/Family are encouraged to report perceived risks to care and to ask questions if they do not understand what they are told or what they should do.
[2021-01-24 03:30] LABS: Basophils Percent Auto 0.3 % (0.2-1.2); Eosinophils Absolute Auto 0.1 K/mm3 (0-0.3); Eosinophils Percent Auto 0.7 % (0-4.4); Hematocrit 42.7 % (42.0-52.0); Hemoglobin 14.1 g/dL (14.0-18.0); Immature Granulocyte Absolute 0.02 K/mm3 (0.00-0.031); Immature Granulocyte Percent A 0.2 % (0-0.5); Lymphocytes Absolute Auto 1.05 K/mm3 (0.9-3.2); Lymphocytes Percent Auto 12.2 % (18.3-44.2); Mean Corpuscular Hemoglobin 28.8 pg (26-34); Mean Corpuscular Volume 87.3 fl (80-100); Mean Platelet Volume 10.9 fl (7.4-10.4); Monocytes Absolute Auto 0.6 K/mm3 (0.1-0.6); Monocytes Percent Auto 6.9 % (2.6-8.5); Neutrophils Absolute Auto 6.8 K/mm3 (1.3-6.7); Neutrophils Percent Auto 79.7 % (45.5-73.1); Platelet Count Result 148 k/mm3 (150-375); Red Blood Count 4.89 M/mm3 (4.6-6.20); Red Cell Distribution Width 12.3 % (11.5-14.5); White Blood Count 8.6 K/mm3 (4.5-10.0)
[2021-01-24 04:03] LABS: Troponin I 0.088 ng/mL (0.000-0.034)
[2021-01-24] MEDS: PROPOFOL IV EMULSION 100 ML 9.28 MG IV CONT (04:06)
[2021-01-24] MEDS: LACTATED RINGERS 1,000 ML 125 ML IV CONT ×3 (04:07→17:15)
[2021-01-24 05:11] LABS: INR 1.2; Prothrombin Time 15.1 Seconds (11.1-14.7)
[2021-01-24 05:28] LABS: Partial Thromboplastin Time > 200.0 SECONDS (22.3-36.8)
[2021-01-24 07:59] LABS: Glucose Point of Care 124 mg/dl (65-105)
[2021-01-24] MEDS: CHOLECALCIFEROL 1,000 UNITS TABLET 3000 UNITS PO (09:24)
[2021-01-24] MEDS: ASPIRIN 81 MG ENTERIC TABLET PO (09:24)
--- NOTE | 2021-01-24 10:55 | WPDCNINT ---
Assessment and Plan Assessment and plan (1) Acute respiratory failure: Qualifiers: Respiratory failure complication: unspecified whether with hypoxia or hypercapnia Qualified Code(s): J96.00 - Acute respiratory failure, unspecified whether with hypoxia or hypercapnia Code(s): J96.00 - Acute respiratory failure, unspecified whether with hypoxia or hypercapnia Status: Acute Assessment and Plan: Secondary to syncope, PE Continue full mechanical ventilation support to prevent hypoxemia/hypercarbia and end organ damage. ABG and PCXR reviewed Will attempt sedation holiday and if patient meets criteria air weaning trial Tidal volume decreased to 420 and rate to 18 WBC normal in no evidence of pneumonia on CT. Will hold antibiotics (2) Pulmonary embolism: Qualifiers: Acute cor pulmonale presence: without acute cor pulmonale Chronicity: acute Pulmonary embolism type: unspecified Qualified Code(s): I26.99 - Other pulmonary embolism without acute cor pulmonale Code(s): I26.99 - Other pulmonary embolism without acute cor pulmonale Status: Acute Assessment and Plan: CT shows IMPRESSION: 1. Left lower lobe segmental and subsegmental pulmonary embolism, moderate thrombus burden. 2: Small pleural effusions with underlying compressive atelectasis. Patient has a history of DVT and PE in 2016 currently not on any anticoagulation Started on heparin infusion which will be continued Check lower extremity Dopplers for evaluation DVT Check echocardiogram (3) Atrial fibrillation with RVR: Code(s): I48.91 - Unspecified atrial fibrillation Status: Acute Assessment and Plan: New onset AFib with RVR currently appears to be in a flutter with controlled ventricular rate P.r.n. beta-terese control On anticoagulation at this Echo is pending (4) Elevated troponin: Code(s): R77.8 - Other specified abnormalities of plasma proteins Status: Acute Assessment and Plan: Likely secondary to PE 1st troponin was negative 2nd marginally elevated Continue serial troponin Add aspirin and statin (5) Syncope and collapse: Code(s): R55 - Syncope and collapse Status: Acute Assessment and Plan: Likely secondary for PE or arrhythmia or combination CT head was negative Sedation holiday at this time Check TSH ammonia MRIs ordered which will be done when patient is extubated Additional Plan DVT prophylaxis -on heparin drip Stress ulcer prophylaxis -PPI Nutrition -start Tube Feeds if unable to extubate Code Status - Full Code I spoke to patient's at bedside and she told me that patient was diagnosed with DVT and PE in 2016 and was on anticoagulation for 6 months. She states that prior to this event yesterday he was feeling fine and this was a similar presentation to his presentation in 2016 for PE Total Critical Care Time - 32 minutes Due to a high probability of clinically significant, life threatening deterioration, the patient required my highest level of preparedness to intervene emergently and I personally spent this critical care time directly and personally managing the patient. This critical care time included obtaining a history; examining the patient; pulse oximetry; ordering and review of studies; arranging urgent treatment with development of a management plan; evaluation of patient's response to treatment; frequent reassessment; and discussions with other providers. It was exclusive of separately billable procedures and treating other patients and teaching time. Please see Assessment and Plan section and the rest of the note for further information on patient assessment and treatment Flume Worker Consult Note Consult date: 01/24/21 HPI: Eren Kulkarni is a 80 year old male was brought in by EMS last. EMS was called as he became unresponsive well as sudden as witnessed by his at home. mentioned that she heard a big thump and found
--- NOTE | 2021-01-24 10:57 | ECG_ITS ---
Measurements Intervals Mcdaniels Rate: 115 P: MA: 0 QRS: -32 QRSD: 156 T: 0 QT: 362 QTc: 502 Interpretive Statements ATRIAL FIBRILLATION WITH RAPID VENTRICULAR RESPONSE VENTRICULAR PREMATURE COMPLEX LEFT AXIS DEVIATION RIGHT BUNDLE BRANCH BLOCK POSSIBLE LEFT VENTRICULAR HYPERTROPHY ABNORMAL ECG Electronically Signed On 01-24-2021 13:11:46 EXCHANGE TELLER by Kenyon Gonsales D.O.
[2021-01-24 10:59] LABS: Alveolar/Arterial O2 Gradient 110.7 mmHg; Base Excess ABG 0.8 mEq/l (+/-2.0); Fractional Inspired Oxygen 35 %; Oxygen Content ABG 18.9 %vol (16.0-22.0); Oxygen Saturation ABG 98.5 % (95.0-100.0); Oxyhemoglobin 96.8 % THb (90.0-100.0); PCO2 ABG 26.4 mmHg (35.0-45.0); PO2 ABG 108.2 mmHg (80.0-100.0); PO2 FiO2 Ratio Arterial Blood 3.09 %; Total Hemoglobin 13.8 g/dL (12.0-18.0)
[2021-01-24 11:01] LABS: Device VENTILATOR; Modified Allen's Test Pass; Site Drawn RIGHT RADIAL; pH ABG 7.538 (7.350-7.450)
[2021-01-24 11:02] LABS: Arterial Blood Gas PEEP 5 cmH2O; Arterial Blood Gas Pressure Support 5 cmH2O; Arterial Blood Gas Vent Mode SPONTANEOUS
--- NOTE | 2021-01-24 11:20 | PM.EVENT ---
Event Note Event Note Event Note: 5/5 PSV SBT done for more than 1 hour. RSBI, ABGI and Vitals acceptable. Pt arousable and following commands. Will extubate and monitor. NPO for now.
--- NOTE | 2021-01-24 11:55 | PM.CNCAR ---
Assessment and Plan Additional Plan -acute pulmonary embolism, bilateral DVT, previous history of pulmonary embolism as well -new onset atrial fibrillation -alcoholic -history of CVA This 80-year-old patient was brought into the hospital after sudden loss of consciousness. Is intubated. Was found to have acute pulmonary embolism bilateral DVT. He was found to be in AFib with RVR. He was just extubated right now. He drinks alcohol heavily. And physical examination there is possible pericardial rub. -will obtain echocardiogram. -at this time due to soft blood pressure will use as needed metoprolol IV to treat AFib with RVR. -continue IV heparin transition to 1 of the oral anticoagulants when he is able to tolerate. -once he is able to tolerate p.o. we will transition to p.o. metoprolol. History of Present Illness History of Present Illness Consult date/time: Date of service 01/24/21 11:55 Requesting physician: Anish Montes MD Consult reason: atrial fibrillation and Other (Atrial fibrillation) Reason For Visit: Acute Respiratory Failure,Syncope,Acute Pulmonary Narrative: This 80-year-old patient with history of hyperlipidemia CVA and previous history of pulmonary embolism and heavy alcohol drinking. EMS was called as he became unresponsive well as sudden as witnessed by his at home. mentioned that she heard a big thump and found him on the floor unresponsive. Was found to be in AFib with RVR. Apparently patient was intubated and he was just extubated right now. According to the who was on the bedside he was doing perfectly fine prior to this and was not complaining of any shortness of breath or chest pains. States that since his stroke couple years ago he walks somewhat but not very active physically. Currently in AFib with heart rate in the low 100s and receiving IV heparin. Troponin 0.[address] thorax showed left lower lobe pulmonary embolism Doppler ultrasound shows bilateral DVT involving both right and left femoral and popliteal veins Review of Systems Review of Systems: ROS unobtainable: Yes unobtainable due to medical condition and unobtainable due to mental status [facility] Past Medical History Medical History Alcoholism Arthritis DVT (deep venous thrombosis) Fatty liver GERD (gastroesophageal reflux disease) Parkinsons disease Pneumonia Pulmonary embolism Seasonal allergies Skin cancer Skull fracture Surgical History Surgical History H/O local excision of skin lesion History of tonsillectomy Family History Family History Father Congestive heart failure Mother Heart disease Breast cancer Sibling Breast cancer Social History Social History Second hand tobacco smoke exposure: Yes Additional smoking assessment comments: quit in 1971 Alcohol intake: unknown Drinks per week: 7 Substance use: never Substance use type: does not use Gender identity (if verbalized by the patient): Male Spiritual care concerns: No Agree to blood products: Yes Meds Home Medications and Allergies Home Medications Medication Instructions Recorded Confirmed Type aspirin 81 mg PO QAM 05/17/19 01/24/21 History atorvastatin 80 mg PO HS #30 tablet 05/27/19 01/24/21 Rx cholecalciferol (vitamin D3) 75 75 mcg PO DAILY 06/11/20 01/24/21 History mcg (3,000 unit) tablet Allergies Allergy/AdvReac Type Severity Reaction Status Date / Time No Known Allergies Allergy Unknown Verified 01/24/21 00:37 Vital Signs Vital Signs - 24 hr 01/23/21 19:30 01/23/21 19:40 01/23/21 20:08 Temperature Pulse Rate 125 H 119 H Respiratory Rate 18 Blood Pressure 100/71 Pulse Oximetry 99 100 96 01/23/21 20:16 01/23/21 20:17 01/23/21 20:20 Temperature Pulse Rat
[2021-01-24 13:36] LABS: Ammonia < 9 umol/L (9-30); Partial Thromboplastin Time 151.6 SECONDS (22.3-36.8)
[2021-01-24 13:57] LABS: Thyroid Stimulating Hormone 0.737 uIU/mL (0.465-4.680)
--- NOTE | 2021-01-24 17:48 | ECG_ITS ---
Measurements Intervals [place] Rate: 74 P: IN: 0 QRS: -7 QRSD: 165 T: 98 QT: 453 QTc: 504 Interpretive Statements SINUS OR ECTOPC ATRIAL RHYTHM FREQUENT VENTRICULAR PREMATURE COMPLEXES RIGHT BUNDLE BRANCH BLOCK BASELINE ARTIFACT- I, II, III, AVR, AVL, AVF, V1-V3 ABNORMAL ECG Electronically Signed On 01-25-2021 5:58:37 VENDOR MANAGEMENT CONSULTANT by Kenyon Gonsales D.O.
--- NOTE | 2021-01-24 18:24 | PM.EVENT ---
Event Note Event Note Event Note: Called to see patient who was suddenly bradycardic. He has been in AFib through the afternoon with a heart rate running 85-110 beats per minute, not on any rate controlling agents. He has been on heparin and overall doing well when suddenly he had a 3.2nd pause and becaume bradycardic, HR 40s. He apparently felt a little woozy and was diaphoretic. Heart rate has picked up into the 50s, blood pressure stable, O2 sat 100% on 2 L. No complaints of chest pain or shortness of breath. Pt is calm, skin is warm and dry, and lying suppine in NAD; at his bedside. Heart is RRR w/ CORKY, lungs clear. EKG on my personal review shows a junctional rhythm with PVCs, HR 50-61, RBBB, nonspecific ST changes. Etiology of his sudden change of rhythm is unclear. 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 This may be is presentation for recurrent PE, but he has no chest pain, shortness of breath, or change in O2 needs. Will continue to monitor, use pacing pads, atropine if needed. Do not think we need to place a temporary pacing wire at this time but is an option should he develop was significant bradycardia.
[2021-01-24] MEDS: FENTANYL 2,500MCG/NS250ML(*CRX 2,500 MCG/250 ML BAG (20:33)
[2021-01-24] MEDS: MIDAZOLAM 100MG/NS 100ML(*CRX) 100 MG/100 ML BAG IV CONT (20:35)
--- NOTE | 2021-01-24 20:45 | ECG_ITS ---
Measurements Intervals [place] Rate: 50 P: MA: 0 QRS: -7 QRSD: 154 T: 266 QT: 532 QTc: 489 Interpretive Statements JUNCTIONAL RHYTHM VENTRICULAR PREMATURE COMPLEX RIGHT BUNDLE BRANCH BLOCK VOLTAGE CRITERIA FOR LVH BASELINE ARTIFACT- I, II, III, AVR, AVL, AVF, V1-V6 ABNORMAL ECG Electronically Signed On 01-25-2021 7:42:51 X RAY CONSULTANT by Kenyon Gonsales D.O.
--- NOTE | 2021-01-24 20:46 | WPDPROCEDUR ---
Procedures Intubation Intubation Date: 01/24/21 Intubation Time: 20:28 Consent: Performed emergently A pre-procedural Time-Out was completed immediately before starting the procedure and confirmed: Patient Identification, Site, Procedure, Patient Position and the Availability of Requisite Equipment: No Sedative: none Laryngoscope: fiber optic video scope ET tube size: 7.5 Tube secured depth (cm): 25 Tube secured location: teeth Tube placement confirmation: visualized tube passing through cords, equal breath sounds bilaterally, no breath sounds over epigastrium and confirmation by capnometry Patient tolerated procedure: well
--- NOTE | 2021-01-24 20:49 | P.HPUP_ITS ---
History and Physical Update Update Date/Time: 01/24/21 20:49 Patient had a torsade cardiac arrest requiring CPR and 1 shock. Back in NSR. May have been a bradycardic induced arrest and I recommend placement of a temporary transvenous pacemaker. History and Physical has been reviewed, i ncluding an updated exam of the patient. He is intubated. Otherwise There are NO changes in the patient's condition. Risks, benefits, and alternatives have been discussed and questions answered. agrees to proceed with procedure.
--- NOTE | 2021-01-24 20:50 | WPDMODSED ---
Moderate Sedation Note-Pt Data Patient Data Diagnosis: Torsade cardiac arrest, bradycardia Present Complaint: Same Allergies Allergy/AdvReac Type Severity Reaction Status Date / Time No Known Allergies Allergy Unknown Verified 01/24/21 00:37 Home Medications Medication Instructions Recorded Confirmed Type aspirin 81 mg PO QAM 05/17/19 01/24/21 History atorvastatin 80 mg PO HS #30 tablet 05/27/19 01/24/21 Rx cholecalciferol (vitamin D3) 75 75 mcg PO DAILY 06/11/20 01/24/21 History mcg (3,000 unit) tablet Current Medications: Active Medications Aspirin (Aspirin 325 Mg Enteric Tablet) 325 mg PO DAILY@0800 YARA Atorvastatin Calcium (Atorvastatin 40 Mg Tablet) 80 mg PO HS YARA Atropine Sulfate (Atropine Sulfate 1 Mg/10 Ml Syringe) 1 mg IV PUSH ONCE PRN PRN Reason: Bradycardia Heparin Sodium (Porcine) (Heparin Sodium 5,000 Units/Ml Vial) 6,000 units IV PUSH PRN PRN PRN Reason: aPTT less than 55 seconds Heparin Sodium (Porcine) (Heparin Sodium 5,000 Units/Ml Vial) 3,000 units IV PUSH PRN PRN PRN Reason: aPTT 55 - 70 seconds Lactated Ringer's (Lr - Lactated Ringers Iv) 1,000 mls @ 125 mls/hr IV CONT .Q8H YARA Last Admin: 01/24/21 17:15 Dose: 125 mls/hr Documented by: Heparin Sodium/Dextrose (Heparin Sodium/D5w 100 Units/Ml) 25,000 units in 250 mls @ 10 mls/hr IV CONT .Q24H YARA; Protocol Last Infusion: 01/24/21 14:40 Dose: 1,000 units/hr, 10 mls/hr Documented by: Fentanyl Citrate (Fentanyl 2,500 Mcg/Ns 250 Ml) 2,500 mcg in 250 mls @ 2.5 mls/hr IV CONT .Q72H YARA; Protocol Midazolam HCl (Versed 100 Mg/Ns 100 Ml) 100 mg in 100 mls @ 1 mls/hr IV CONT .Q72H YARA; Protocol Lorazepam (Lorazepam Inj (*Crx) 2 Mg/Ml Vial) 4 mg IV PUSH Q6H PRN PRN Reason: Anxiety Last Admin: 01/23/21 23:09 Dose: 4 mg Documented by: Metoprolol Tartrate (Metoprolol Tartrate Inj 5 Mg/5 Ml Vial) 5 mg IV PUSH Q6H PRN PRN Reason: Tachycardia Multi-Ingred Cream/Lotion/Oil/Oint (Mineral Oil/White Petrolatum Ointment) 1 applic EACH EYE Q12HR [facility] Pantoprazole Sodium (Pantoprazole Sodium Iv 40 Mg Vial) 40 mg IV PUSH QAM YARA Vitamin D (Cholecalciferol 1,000 Units Tablet) 3,000 units PO DAILY YARA Last Admin: 01/24/21 09:24 Dose: 3,000 units Documented by: Sedation/Anesthesia: No previous sedation/anesthesia problems (including family history). [facility] Past Medical History Medical History Alcoholism Arthritis DVT (deep venous thrombosis) Fatty liver GERD (gastroesophageal reflux disease) Parkinsons disease Pneumonia Pulmonary embolism Seasonal allergies Skin cancer Skull fracture Surgical History Surgical History H/O local excision of skin lesion History of tonsillectomy Family History Family History Father Congestive heart failure Mother Heart disease Breast cancer Sibling Breast cancer Social History Social History Second hand tobacco smoke exposure: Yes Additional smoking assessment comments: quit in 1971 Alcohol intake: unknown Drinks per week: 7 Substance use: never Substance use type: does not use Gender identity (if verbalized by the patient): Male Spiritual care concerns: No Agree to blood products: Yes Mod Sed Physical Exam Physical Exam Pre Procedural Exam: Normal: Appearance (Very older man on a ventilator, intubated), Eyes, Ears, Nose, Neck, Throat (ETT), Airway, Lungs, Heart Size, Heart Rate, Heart Rhythm, Abdomen, Extremities and Skin and Variation: Neuro Exam (Sedated) Hours since solid foods: 2 Hours since liquid intake: 2 Mallampati Classification: class III Internal Medicine - PN: Obj Da Vital Signs Vital Signs: Vital Signs - 24 hr 01/23/21 21:00 01/23/21 21:01 01/23/21 21:15 Temperature Pulse Rate 125 H 137 H 124 H Respiratory Rate 20 21 H 20 Blood
[2021-01-24 20:57] LABS: Hematocrit 41.5 % (42.0-52.0); Hemoglobin 13.9 g/dL (14.0-18.0); Mean Corpuscular HGB Conc 33.5 g/dl (32-36); Mean Corpuscular Hemoglobin 29.3 pg (26-34); Mean Corpuscular Volume 87.6 fl (80-100); Mean Platelet Volume 10.9 fl (7.4-10.4); Platelet Count Result 171 k/mm3 (150-375); Red Blood Count 4.74 M/mm3 (4.6-6.20); Red Cell Distribution Width 12.3 % (11.5-14.5); White Blood Count 14.3 K/mm3 (4.5-10.0)
[2021-01-24 21:06] LABS: INR 1.1
[2021-01-24 21:08] LABS: Partial Thromboplastin Time 89.6 SECONDS (22.3-36.8)
--- NOTE | 2021-01-24 21:11 | PDCODEBLUE ---
Code Blue Note Code Blue Note Time Arrived at Code Blue: 20:22 Initial Rhythm on Arrival: V-tach/torsades Airway Management: Pt intubated during resuscitation Chest Compressions: Initiated upon arrival Result of Code Blue: Pt transferred to ICU (Patient is already in the ICU) Cardiac Rhythm Post Code: Sinus tach Code Blue Summary: The patient became unresponsive and went into V-tach. Review of telemetry appears the patient was actually and torsades. CPR was initiated while defibrillator pads were placed. Patient received 1 shock and CPR was resumed. On pulse check patient had resumption of perfusing cardiac rhythm with normal blood pressure. Rhythm post code was sinus tach. The patient was having some respiratory effort but was obtunded and subsequently was intubated post code. 7.5 ET tube was placed 25 cm at the lip in repeat chest x-ray demonstrated ET tube at the upper clavicles. ET tube was advanced 2 cm and repeat x-ray was performed and demonstrated ET tube just below the clavicles. The ET tube was then advanced to 28 cm. Reaming Machine Operator For Plastic arrived at bedside at the time of Code. On review of telemetry strips and EKG the decision has been made to take the patient to field laboratory operator for temporary pacer. Stat labs including CBC, BMP, magnesium, troponin and lactic acid or ordered. Potassium came back low at 3 and 40 mEq potassium chloride rider was ordered. The patient's magnesium was 3.8 but was drawn immediately after a 2 g magnesium push was given. 35 minutes was spent in critical care activities in exclusion of procedures. This case had a high probability of a clinically significant, sudden, or life threatening deterioration of this patient's condition which required my full and direct attention, intervention and personal management.
[2021-01-24 21:12] LABS: Anion Gap 10 mmol/L (8-16); Blood Urea Nitrogen 5 mg/dL (9-20); Calcium 9.2 mg/dL (8.4-10.2); Carbon Dioxide 20 mmol/L (22-30); Chloride 102 mmol/L (98-107); Estimated CRCL calculation 93 ml/min; Estimated Glomerular Filt Rate > 60; Glucose 160 mg/dL (65-110); Magnesium 3.8 mg/dL (1.6-2.3); Sodium 132 mmol/L (137-145)
[2021-01-24 21:35] LABS: Troponin I 0.078 ng/mL (0.000-0.034)
--- NOTE | 2021-01-24 22:40 | PM.OP ---
Procedure Note - Brief Procedure Note - Brief Date of procedure: 01/24/21 Pre-op diagnosis: Acute Respiratory Failure,Syncope,Acute Pulmonary Torsade V-tach, probably bradycardia induced Procedure performed: Placement of a temporary pacemaker Description of procedure: Uneventful placement of temporary transvenous pacemaker, right femoral vein Anesthesia: local Surgeon: Sirisha Romero MD Complications: No immediate complications Condition: critical Disposition: ICU
--- NOTE | 2021-01-24 22:41 | P.OP_ITS ---
Procedure Note - Detailed Date of Procedure 01/24/21 Pre-op Diagnosis Torsade V-tach, cardiac arrest, probably bradycardia induced Post-op Diagnosis same Procedure Performed Placement of a temporary transvenous pacemaker, right femoral vein Surgeon Sirisha Romero MD Anesthesia local Indications Bradycardia induced polymorphic ventricular tachycardia Description of Procedure The patient was brought to the laboratory technical specialist intubated and sedated. The right femoral area is prepped and draped in usual fashion. Local anesthesia was applied. The right femoral vein was identified with vascular ultrasound, punctured and cannulated with a 5 [place] venous sheath. A 5 [place] balloon tipped temporary transvenous pacemaker was passed through the right atrium and tricuspid valve into the tip of the right ventricle. The threshold was less than 0.8 milliseconds. The pacemaker was set for rate of 70 pulses per minute, with an output of 3.0. The sheath was sutured in place and a sterile dressing applied. Estimated Blood Loss 5 Drains No Pathology none sent Complications No immediate complications Condition critical Disposition ICU
[2021-01-24] MEDS: MINERAL OIL/WHITE PETROLATUM OINTMENT 1 APPLIC EACH EYE (23:38)
[2021-01-24] MEDS: THIAMINE HCL 200 MG/2 ML VIAL 100 MG IV PUSH (23:41)
[2021-01-24] MEDS: KCL 40 MEQ/WATER 100 ML 100 ML 25 ML IVPB (23:42)
[2021-01-24 23:56] LABS: Partial Thromboplastin Time 37.5 SECONDS (22.3-36.8)
[2021-01-24] MEDS: AMPICILLIN SULB 3 GM/NS 100 ML 3 GM/100 ML VIAL IVPB (23:59)
[2021-01-25] VITALS (22 sets, daily range): BP systolic 72–120; BP diastolic 55–76; PULSE 70–75; RESP 14–18; TEMP 36.5–37.1; O2SAT 100
[2021-01-25] MEDS: SODIUM CHLORIDE 0.9% IV 1,000 ML 999 ML IV CONT (00:20)
[2021-01-25 00:55] LABS: Alveolar/Arterial O2 Gradient 84.2 mmHg; Base Excess ABG 2.8 mEq/l (+/-2.0); Fractional Inspired Oxygen 35 %; HCO3 ABG 26.4 mEq/l (22.0-26.0); Oxygen Content ABG 17.4 %vol (16.0-22.0); Oxygen Saturation ABG 98.6 % (95.0-100.0); Oxyhemoglobin 96.9 % THb (90.0-100.0); PCO2 ABG 37.3 mmHg (35.0-45.0); PO2 FiO2 Ratio Arterial Blood 3.49 %; Total Hemoglobin 12.6 g/dL (12.0-18.0); pH ABG 7.468 (7.350-7.450)
[2021-01-25 00:56] LABS: Device VENTILATOR; Modified Allen's Test Pass; Site Drawn RIGHT RADIAL
[2021-01-25 00:57] LABS: Arterial Blood Gas PEEP 5 cmH2O; Arterial Blood Gas Tidal Volume 350 ml; Arterial Blood Gas Vent Mode CMV; Arterial Blood Gas Ventilator rate 18 /MIN
--- NOTE | 2021-01-25 01:46 | PC.NURSE ---
01/24 Dr. Campoverde informed of 40 beat run of vtach/torsades. orders received. 01/24 Dr. Romero informed of 40 beat run of vtach as requested per Dr. Campoverde
--- NOTE | 2021-01-25 01:48 | PC.NURSE ---
01/24 Patient noted to be in vtach/torsades rhythm per residential monitor. code called and cpr started. see code sheet 4099 consent obtained to take patient to the veterinarian laboratory animal care per Dr. Romero [id number] lab rep here to take patient.
--- NOTE | 2021-01-25 01:50 | PC.NURSE ---
0961 01/24 Back to room 11 from coreroom foundry laborer. bp 77/55 at this time. sheath intact to right groin with temp. pacer at 70 MA 3
--- NOTE | 2021-01-25 01:52 | PC.NURSE ---
01/[address] Campoverde updated on condition and of hypotension. orders received.
[2021-01-25] MEDS: LACTATED RINGERS 1,000 ML 125 ML IV CONT ×2 (02:54→10:18)
[2021-01-25] MEDS: HEPARIN SOD/D5W 100 UNITS/ML 25,000 UNITS/250 ML BAG 10 UNITS IV CONT (02:56)
[2021-01-25 05:09] LABS: Alveolar/Arterial O2 Gradient 45.9 mmHg; Base Excess ABG -0.3 mEq/l (+/-2.0); Carboxyhemoglobin 0.3 % THb (0-2.0); Fractional Inspired Oxygen 30 %; HCO3 ABG 22.9 mEq/l (22.0-26.0); Methemoglobin ABG 0.4 %THb (0-1.5); Oxygen Content ABG 19.4 %vol (16.0-22.0); Oxygen Saturation ABG 98.7 % (95.0-100.0); PCO2 ABG 33.7 mmHg (35.0-45.0); PO2 ABG 128.4 mmHg (80.0-100.0); PO2 FiO2 Ratio Arterial Blood 4.28 %; Reduced Hemoglobin 2.3 %THb (0-5.0); Total Hemoglobin 14.1 g/dL (12.0-18.0); pH ABG 7.451 (7.350-7.450)
[2021-01-25 05:10] LABS: Arterial Blood Gas Vent Mode CMV; Arterial Blood Gas Ventilator rate 14 /MIN; Device VENTILATOR; Modified Allen's Test Unable to perform; Site Drawn RIGHT RADIAL
[2021-01-25 05:11] LABS: Arterial Blood Gas PEEP 5 cmH2O; Arterial Blood Gas Tidal Volume 350 ml
[2021-01-25 06:08] LABS: Basophils Percent Auto 0.3 % (0.2-1.2); Eosinophils Absolute Auto 0.1 K/mm3 (0-0.3); Eosinophils Percent Auto 1.4 % (0-4.4); Hematocrit 37.9 % (42.0-52.0); Hemoglobin 12.4 g/dL (14.0-18.0); Immature Granulocyte Absolute 0.03 K/mm3 (0.00-0.031); Immature Granulocyte Percent A 0.4 % (0-0.5); Immature Platelet Fraction Pct 4.2 % (0.9-11.2); Lymphocytes Absolute Auto 1.03 K/mm3 (0.9-3.2); Lymphocytes Percent Auto 14.5 % (18.3-44.2); Mean Corpuscular HGB Conc 32.7 g/dl (32-36); Mean Corpuscular Hemoglobin 28.9 pg (26-34); Mean Corpuscular Volume 88.3 fl (80-100); Mean Platelet Volume 10.9 fl (7.4-10.4); Monocytes Absolute Auto 0.9 K/mm3 (0.1-0.6); Monocytes Percent Auto 12.8 % (2.6-8.5); Neutrophils Percent Auto 70.6 % (45.5-73.1); Platelet Count Result 105 k/mm3 (150-375); Red Blood Count 4.29 M/mm3 (4.6-6.20); Red Cell Distribution Width 12.4 % (11.5-14.5); White Blood Count 7.1 K/mm3 (4.5-10.0)
[2021-01-25 06:21] LABS: Alanine Aminotransferase 17 U/L (4-50); Albumin Level 2.7 g/dL (3.5-5.1); Alkaline Phosphatase 79 U/L (38-126); Anion Gap 7 mmol/L (8-16); Aspartate Amino Transferase 36 U/L (17-59); Bilirubin,Total 0.8 mg/dL (0.2-1.3); Blood Urea Nitrogen 5 mg/dL (9-20); Calcium 8.7 mg/dL (8.4-10.2); Carbon Dioxide 23 mmol/L (22-30); Chloride 106 mmol/L (98-107); Estimated CRCL calculation 93 ml/min; Estimated Glomerular Filt Rate > 60; Glucose 99 mg/dL (65-110); Magnesium 2.3 mg/dL (1.6-2.3); Potassium 3.6 mmol/L (3.4-5.0); Sodium 136 mmol/L (137-145)
[2021-01-25 06:22] LABS: Partial Thromboplastin Time 73.5 SECONDS (22.3-36.8)
[2021-01-25] MEDS: AMPICILLIN SULB 3 GM/NS 100 ML 3 GM/100 ML VIAL IVPB ×2 (06:25→11:53)
[2021-01-25] MEDS: THIAMINE HCL 200 MG/2 ML VIAL 100 MG IV PUSH (07:38)
[2021-01-25] MEDS: ATORVASTATIN 40 MG TABLET 80 MG PO (07:39)
[2021-01-25] MEDS: PANTOPRAZOLE SODIUM IV 40 MG VIAL IV PUSH (07:39)
[2021-01-25] MEDS: ASPIRIN 325 MG ENTERIC TABLET PO (07:39)
[2021-01-25] MEDS: CHOLECALCIFEROL 1,000 UNITS TABLET 3000 UNITS PO (07:39)
[2021-01-25] MEDS: MINERAL OIL/WHITE PETROLATUM OINTMENT 1 APPLIC EACH EYE (07:55)
--- NOTE | 2021-01-25 08:23 | PM.PNCARD ---
Progress Note: A&P Additional Plan Complex situation in this 80-year-old man with: Chronic alcoholism who presented with syncope and obviously has paroxysmal atrial fibrillation but also arrest of last night with sustained ventricular tachycardia. Echocardiogram demonstrates left ventricular systolic dysfunction and severe aortic valve stenosis. He is currently sedated on the ventilator with transvenous pacemaker in place and for the moment appears to be dependent on the device. It seems relatively clear that he will require aortic valve replacement and as such if that is the intention transfer from [facility] to a facility where this is available. We will does have to discuss this with his when she comes in later today. Blake Weiner MD [facility] Subjective Date/time seen: Date of service: 01/25/21 08:23 Interval history: Follow-up visit in this 80-year-old man with: Paroxysmal atrial fibrillation chronicity unclear, left ventricular systolic dysfunction found by echo yesterday also with severe aortic stenosis found by echo yesterday. Patient also apparently is a chronic alcoholic. He presented with syncope that occurred at home. Yesterday ICU shortly following extubation he developed sustained ventricular tachycardia from which he had to be resuscitated and was reintubated. Because of significant bradycardia prior to that a temporary pacemaker was placed from the right femoral vein in the laboratory assistant. Patient is intubated sedated in the ICU. Current rhythm is electronically paced with retrograde atrial activation and PVCs. Turned the pacemaker down to 40 beats per minute and there is no intrinsic rhythm being sensed. Family is not available this morning for conversation. Exam Const: Other: Elderly sedated patient intubated in the ICU HENMT: Mouth: Yes moist mucous membranes Eyes: Sclera: sclerae normal Pupils: Equal, round and reactive pupils present Neck: Neck: supple and no JVD Resp: Other: Central rhonchi noted ventilator breath sounds Cardio: Rate: regular rate Rhythm: regular rhythm Other: Paced rhythm, heart tones are diminished in intensity GI: GI Palp: Yes Soft to palpation Auscultation: normal bowel sounds Urinary Catheter: Urinary Catheter: patent and draining Neuro: Other: Sedated and intubated Extrem: Other: From significant edema distal pulses are difficult to palpate excellent femoral pulses Objective Data Vital Signs Vital Signs: Vital Signs - 24 hr 01/24/21 08:56 01/24/21 09:16 01/24/21 10:00 Temperature 36.6 C Pulse Rate 78 80 98 Pulse Rate [Bilateral Pedal (Dorsalis Pedis) Doppler] Respiratory Rate 18 14 Blood Pressure 115/87 Pulse Oximetry 100 97 01/24/21 12:00 01/24/21 12:02 01/24/21 14:00 Temperature 37.5 C 37.2 C Pulse Rate 99 120 H Pulse Rate [Bilateral Pedal (Dorsalis Pedis) Doppler] Respiratory Rate 17 13 Blood Pressure 103/73 117/87 Pulse Oximetry 100 100 97 01/24/21 16:00 01/24/21 17:48 01/24/21 18:00 Temperature 37.6 C 37.7 C H 37.8 C H Pulse Rate 99 28 L 55 L Pulse Rate [Bilateral Pedal (Dorsalis Pedis) Doppler] Respiratory Rate 17 18 18 Blood Pressure 128/98 H 133/72 135/64 Pulse Oximetry 100 100 100 01/24/21 20:00 01/24/21 20:30 01/24/21 20:33 Temperature 36.4 C L Pulse Rate 54 L 73 54 L Pulse Rate [Bilateral Pedal (Dorsalis Pedis) Doppler] Respiratory Rate 16 18 Blood Pressure 134/63 Pulse Oximetry 98 100 01/24/21 21:45 01/24/21 23:00 01/25/21 00:00 Temperature 37.1 C Pulse Rate 60 70 70 Pulse Rate [Bilateral Pedal (Dorsalis Pedis) Doppler] Respiratory Rate 18 Blood Pressure 72/55 L Pulse Oximetry 100 100 100 01/25/21 01:00 01/25/21 02:00 01/25/21 02:02 Temperature 37.1 C 37.0 C Pulse Rate 73 70 71 Pulse Rate [Bilateral Pedal (Dorsalis Pedis) Doppler] Respiratory Rate 18 14 Blood Pressure 94/64 L 92/70 L Pulse Oximetry 100 100 100 01/25/21 04:00 01/25/21 05:00 01/25/21 05:1
[2021-01-25] MEDS: POTASSIUM CHLORIDE 20 MEQ PACKET (FOR LIQUID) 40 MEQ FEED TUBE (10:05)
--- NOTE | 2021-01-25 10:34 | WPDINTPN ---
Progress Note: A&P Assessment and Plan (1) Acute respiratory failure: Qualifiers: Respiratory failure complication: unspecified whether with hypoxia or hypercapnia Qualified Code(s): J96.00 - Acute respiratory failure, unspecified whether with hypoxia or hypercapnia Code(s): J96.00 - Acute respiratory failure, unspecified whether with hypoxia or hypercapnia Status: Acute Assessment and Plan: Secondary to syncope, PE, V-tach Continue full mechanical ventilation support to prevent hypoxemia/hypercarbia and end organ damage. ABG reviewed -decrease tidal to 320 Chest x-ray reviewed WBC normal in no evidence of pneumonia on CT. Will hold antibiotics (2) Pulmonary embolism: Qualifiers: Acute cor pulmonale presence: without acute cor pulmonale Chronicity: acute Pulmonary embolism type: unspecified Qualified Code(s): I26.99 - Other pulmonary embolism without acute cor pulmonale Code(s): I26.99 - Other pulmonary embolism without acute cor pulmonale Status: Acute Assessment and Plan: CT shows IMPRESSION: 1. Left lower lobe segmental and subsegmental pulmonary embolism, moderate thrombus burden. 2: Small pleural effusions with underlying compressive atelectasis. Patient has a history of DVT and PE in 2016 currently not on any anticoagulation Started on heparin infusion which will be continued Bilateral lower extremity Dopplers showed- Bilateral deep venous thrombosis involving the right femoral, right popliteal, left popliteal and left peroneal veins. Echocardiogram reviewed (3) V tach: Code(s): I47.2 - Ventricular tachycardia Status: Acute Assessment and Plan: Patient had nonsustained V-tach yesterday evening. Electrolytes were ordered. Patient was not started on amiodarone as patient was fairly bradycardic with heart rate in 40s and 50s. Later patient went into V-tach again which appears as torsades. And was defibrillated, CPR was done and patient was intubated Post that patient was bradycardic was taken to cardiac catheterization lab and a transvenous pacemaker was placed. Patient currently is pacer dependent Echo was done and showed 1. Left ventricular chamber dimension is mildly enlarged. 2. Left ventricular systolic function is moderately reduced, estimated at 30-35%. 3. Right ventricular chamber dimension is normal. 4. Right ventricular systolic function is normal. 5. Left atrial chamber dimension is mildly enlarged. 6. There is severe aortic valve stenosis with a peak velocity of 384.17 cm/s, mean gradient of 36 mmHg, and aortic valve area of 0.83 cm2. 7. There is severe aortic valve calcification. 8. There is mild mitral valve regurgitation. 9. There is mild tricuspid valve regurgitation.RVSP 42 mmhg. I have discussed case with Dr. Weiner with cardiology and he recommends at this time patient be transferred to outside hospital for cardiac catheterization and possible PCI, aortic valve replacement either surgical or TAVR and placement of pacemaker and AICD. He is working on transferring patient to [facility] at this Meanwhile continue to monitor on telemetry. Patient is currently paced and is pacer dependent I will replace low potassium (4) Atrial fibrillation with RVR: Code(s): I48.91 - Unspecified atrial fibrillation Status: Acute Assessment and Plan: New onset AFib with RVR on presentation but currently now patient is in paced rhythm On anticoagulation at this (5) Elevated troponin: Code(s): R77.8 - Other specified abnormalities of plasma proteins Status: Acute Assessment and Plan: Likely secondary to PE Continue heparin, aspirin and statin (6) Syncope and collapse: Code(s): R55 - Syncope and collapse Status: Acute Assessment and Plan: Likely secondary for PE or arrhythmia or combination CT head was negative Normal TSH ammonia MRIs ordered which will
--- NOTE | 2021-01-25 11:21 | WPDNEURCNPN ---
Assessment and Plan Additional Plan coma toes status, all the chart is reviewed patient will need the EEG before any further recommendations are made Consult date: 01/25/21 HPI: Eren Kulkarni is a 80 year old male admitted to the hospital for being unresponsive brought in by EMS were called because of the unresponsiveness developing suddenly witnessed by his at home and she heard a thump found him on the floor by the time EMS arrived the patient was breathing was noted to be in SVT, abated promptly brought to the very found to be in atrial fibrillation with rapid ventricular response maintained on mechanical ventilation and sedated troponin were normal at on arrival seen mild pulmonary edema on chest x-ray and the CTA documented left segmental PE receive hive the heparin drip and admitted to the ICU does have a history of arthritis, DVT of Parkinson disease and history of skull fracture in the past in addition to history of drinks per week 7 and outpatient medication did not include any anti parkinsonian medication as per the review Review of Systems Review of Systems: All systems reviewed & are unremarkable except as noted in HPI and below PMFSH Past Medical History Medical History Alcoholism Arthritis DVT (deep venous thrombosis) Fatty liver GERD (gastroesophageal reflux disease) Parkinsons disease Pneumonia Pulmonary embolism Seasonal allergies Skin cancer Skull fracture Surgical History Surgical History H/O local excision of skin lesion History of tonsillectomy Family History Family History Father Congestive heart failure Mother Heart disease Breast cancer Sibling Breast cancer Social History Social History Second hand tobacco smoke exposure: Yes Additional smoking assessment comments: quit in 1971 Alcohol intake: unknown Drinks per week: 7 Substance use: never Substance use type: does not use Gender identity (if verbalized by the patient): Male Spiritual care concerns: No Agree to blood products: Yes Meds Home Medications and Allergies Home Medications Medication Instructions Recorded Confirmed Type aspirin 81 mg PO QAM 05/17/19 01/24/21 History atorvastatin 80 mg PO HS #30 tablet 05/27/19 01/24/21 Rx cholecalciferol (vitamin D3) 75 75 mcg PO DAILY 06/11/20 01/24/21 History mcg (3,000 unit) tablet Allergies Allergy/AdvReac Type Severity Reaction Status Date / Time No Known Allergies Allergy Unknown Verified 01/24/21 00:37 Vital Signs Vital Signs - 24 hr 01/24/21 12:00 01/24/21 12:02 01/24/21 14:00 Temperature 37.5 C 37.2 C Pulse Rate 99 120 H Pulse Rate [Bilateral Pedal (Dorsalis Pedis) Doppler] Respiratory Rate 17 13 Blood Pressure 103/73 117/87 Pulse Oximetry 100 100 97 01/24/21 16:00 01/24/21 17:48 01/24/21 18:00 Temperature 37.6 C 37.7 C H 37.8 C H Pulse Rate 99 28 L 55 L Pulse Rate [Bilateral Pedal (Dorsalis Pedis) Doppler] Respiratory Rate 17 18 18 Blood Pressure 128/98 H 133/72 135/64 Pulse Oximetry 100 100 100 01/24/21 20:00 01/24/21 20:30 01/24/21 20:33 Temperature 36.4 C L Pulse Rate 54 L 73 54 L Pulse Rate [Bilateral Pedal (Dorsalis Pedis) Doppler] Respiratory Rate 16 18 Blood Pressure 134/63 Pulse Oximetry 98 100 01/24/21 21:45 01/24/21 23:00 01/25/21 00:00 Temperature 37.1 C Pulse Rate 60 70 70 Pulse Rate [Bilateral Pedal (Dorsalis Pedis) Doppler] Respiratory Rate 18 Blood Pressure 72/55 L Pulse Oximetry 100 100 100 01/25/21 01:00 01/25/21 02:00 01/25/21 02:02 Temperature 37.1 C 37.0 C Pulse Rate 73 70 71 Pulse Rate [Bilateral Pedal (Dorsalis Pedis) Doppler] Respiratory Rate 18 14 Blood Pressure 94/64 L 92/70 L Pulse Oximetry 100 100 100 01/25/21 04:00 01/25/21 05:00 01/25/21
[2021-01-25 12:56] LABS: Partial Thromboplastin Time 111.5 SECONDS (22.3-36.8)
--- NOTE | 2021-03-04 13:59 | PM.DS ---
DS: Admitting Diagnosis Discharge Date 01/25/21 Admitting Diagnosis Syncopal episode DS: Discharge Diagnosis Discharge Diagnosis (1) Cardiomyopathy: Code(s): I42.9 - Cardiomyopathy, unspecified Status: Acute (2) Atrial fibrillation with RVR: Code(s): I48.91 - Unspecified atrial fibrillation Status: Acute (3) Aortic stenosis: Code(s): I35.0 - Nonrheumatic aortic (valve) stenosis Status: Acute DS: Summary Hospital Course Reason for hospitalization: Syncopal episode Hospital Course: This is a 80-year-old patient was hospitalized after having a syncopal episode at home. Patient has a history of heavy drinking and was found to be in atrial fib with RVR. Later following admission he became profoundly bradycardic and required implantation of a temporary transvenous pacemaker lead which was done in the woven label designer by Dr. Romero. The patient had an echocardiogram done that demonstrated poor left ventricular function and severe aortic valve stenosis. Following all this he was intubated sedated in the ICU. Patient was clearly going to require device implantation as well as aortic valve replacement for that reason transfer for [facility] to a center were cardiothoracic surgical garment assembler station is available was recommended. The patient was transferred in that situation to [facility] by ambulance. He was intubated and sedated at the time of transfer for with a temporary transvenous pacing wire that was implanted for by the right femoral vein approach. Status at Discharge Cognitive/behavioral status at discharge: Sedated and intubated Functional status at discharge: bed bound Overall status at discharge: other Time Spent with Patient Time attestation: Total time spent providing and/or coordinating discharge services: Time spent: Less than 30 minutes Exam Const: Other: Sedated intubated white male HENMT: Mouth: Yes moist mucous membranes Eyes: Sclera: sclerae normal Neck: Neck: supple and no JVD Resp: Effort & Inspection: normal respiratory effort Other: Coarse breath sounds Cardio: Rate: regular rate Rhythm: regular rhythm Other: Paced rhythm GI: GI Palp: Yes Soft to palpation Auscultation: normal bowel sounds Skin: General skin exam: normal color Neuro: Other: Sedated on ventilator support Extrem: General: normal to inspection Discharge Plan Discharge Attending physician on discharge: Sirisha Romero Consulting providers: Zbigniew Campoverde ; Miguel Angel Puente ; Jose Herman ; Isaias Torres ; Harry Wheatley ; Kenyon Gonsales ; Gisselle Langston ; Kenyon Bermudez V. ; Sirisha Romero ; Anita Reeder Discharging Clinician: Blake Weiner Anticipated Discharge Date/Time: 01/25/21 14:03 Patient Disposition: Acute Care Hospital Activity: other - see discharge instructions Diet: NPO Discharge Medications: Continued cholecalciferol (vitamin D3) 75 mcg (3,000 unit) tablet 75 mcg PO DAILY RF: 0 aspirin 81 mg Tablet,Delayed Release (Dr/Ec) 81 mg PO QAM RF: 0 atorvastatin 80 mg Tablet 80 mg PO HS Qty: 30 RF: 0 Date of admission: 01/24/21 01:53 Primary Care Provider: Georgiana Tripp Admitting Provider: Anish Montes Attending physician on admission: Blake Weiner Condition: Critical
--- NOTE | 2021-03-04 14:42 | PM.TDS ---
Transfer Discharge Sum: Prov Provider Date of admission: 01/24/21 01:53 Primary care physician: Georgiana Tripp DO Admitting clinician: Anish Montes MD Attending physician on admission: Sirisha Romero Consults: 01/24/21 01:54 Consult to Physician Routine Comment: Consulting Provider: Miguel Angel Puente Reason for consultation: Unresponsiveness Has provider been notified: No Consult to Physician Routine Comment: Consulting Provider: Zbigniew Campoverde Reason for consultation: ICU management Has provider been notified: Yes 01/24/21 03:49 Consult to Physician Routine Comment: called and left message with [place] [facility] Consulting Provider: Jose Herman area coordinator/MD group to consult: Cardiology Reason for consultation: AFib with RVR, collapse Has provider been notified: Yes Attending physician on discharge: Sirisha Romero Discharging clinician: Blake Weiner Anticipated date of transfer: 01/25/21 Receiving physician/facility: [facility] DS: Admitting Diagnosis Discharge Date 01/25/21 Admitting Diagnosis syncope DS: Discharge Diagnosis Discharge Diagnosis (1) Cardiomyopathy: Code(s): I42.9 - Cardiomyopathy, unspecified Status: Acute (2) Atrial fibrillation with RVR: Code(s): I48.91 - Unspecified atrial fibrillation Status: Acute (3) Aortic stenosis: Code(s): I35.0 - Nonrheumatic aortic (valve) stenosis Status: Acute Transfer Discharge Sum: Med Medications Active and Home Medications: Home Medications aspirin 81 mg PO QAM 05/17/19 [History Confirmed 01/24/21] atorvastatin 80 mg PO HS #30 tablet 05/27/19 [Rx Confirmed 01/24/21] cholecalciferol (vitamin D3) 75 mcg (3,000 unit) tablet 75 mcg PO DAILY 06/11/20 [History Confirmed 01/24/21] Transfer Discharge Sum: Hosp Hospital Course Hospital course: Eren Kulkarni is a 80 year old male without previous history of cardiac pathology. Patient was a longstanding alcoholic. He presented to the hospital following experience syncopal episode at home. He is found to have atrial fibrillation with rapid ventricular response and later on the day of admission became markedly bradycardic. Dr. Romero saw him in consultation urgently and implanted a temporary pacemaking wire in the cardiac catheterization lab. Echocardiogram after that demonstrated significant LV systolic dysfunction and severe aortic valve stenosis as well. Following day the patient was intubated in the ICU with normal functioning of his temporary pacing lead. It was clear the patient was converted require both device implantation as well as aortic valve replacement. He was transferred to [facility] for cardiothoracic surgery consultation in this setting. At the time of transfer he was intubated sedated in being transvenous Kanchan paced with his temporary pacing wire. Time Spent with Patient Time attestation: Total time spent providing and/or coordinating transfer services: Exam Const: Other: Intubated sedated elderly man HENMT: Mouth: Yes moist mucous membranes Eyes: Sclera: sclerae normal Neck: Neck: supple and no JVD Resp: Effort & Inspection: normal respiratory effort Auscultation: clear to auscultation bilaterally Cardio: Rate: regular rate Rhythm: regular rhythm GI: GI Palp: Yes Soft to palpation Auscultation: normal bowel sounds Skin: General skin exam: normal color Neuro: Other: sedated/unresponsive Extrem: General: normal to inspection
== END 2021-01-25 13:20 | disposition short-term general hospital (02) | DRG 208 ==
LOC: ANHED 01-24 01:35 → ANHICU 01-24 12:44
PROVIDERS: Internal Medicine; Internal Medicine Cardiovascular Disease; Psychiatry & Neurology Neurology; Admitting Provider Internal Medicine; Emergency Provider Emergency Medicine; PCP Family Medicine; Visit Provider Specialist
PROC: 5A1223Z Performance of Cardiac Pacing, Continuous (ICD-10-PCS; CPT 33210; principal; 2021-01-24 21:20)
DX: I26.99 Other pulmonary embolism without acute cor pulmonale (principal); J96.00 Acute respiratory failure, unspecified whether with hypoxia or hypercapnia; I46.9 Cardiac arrest, cause unspecified; I48.20 Chronic atrial fibrillation, unspecified; I47.1 Supraventricular tachycardia; I42.9 Cardiomyopathy, unspecified; I35.0 Nonrheumatic aortic (valve) stenosis; R00.1 Bradycardia, unspecified; G20 Parkinson's disease; M19.90 Unspecified osteoarthritis, unspecified site; K21.9 Gastro-esophageal reflux disease without esophagitis; K76.0 Fatty (change of) liver, not elsewhere classified; R55 Syncope and collapse; I48.0 Paroxysmal atrial fibrillation; F10.20 Alcohol dependence, uncomplicated; Z86.718 Personal history of other venous thrombosis and embolism; Z85.828 Personal history of other malignant neoplasm of skin; Z86.73 Personal history of transient ischemic attack (TIA), and cerebral infarction without residual deficits
CPT/HCPCS: 31500; 33210; 36415; 36600; 70450; 71045; 71275; 72125; 74018; 80048; 80053; 82140; 82375; 82805; 82948; 83050; 83605; 83735; 84443; 84484; 85025; 85027; 85055; 85610; 85730; 87040; 92950; 93005; 93970; 94002; 94003; 96361; 96365; 96366; 96375; 99285; A9270; C1883; C1894; C8929; C9113; J0171; J0295; J0330; J0456; J0461; J0696; J1644; J2060; J2250; J2704; J3010; J3411; J3475; J3480; J7030; J7120; Q9957; Q9967

== ENCOUNTER → 2021-04-22 02:06 | Outpatient (CLI) | payer MEDICARE, SELFPAY ==
[2021-04-22 11:46] LABS: SARS-CoV-2 RNA PCR Negative
== END ==
PROVIDERS: PCP Family Medicine; Visit Provider Internal Medicine Cardiovascular Disease
DX: Z01.812 Encounter for preprocedural laboratory examination (principal); Z20.822 Contact with and (suspected) exposure to COVID-19
CPT/HCPCS: C9803; U0003; U0005

== ENCOUNTER 2021-11-21 13:30 | Outpatient (RCR) | payer MEDICARE, SELFPAY | END 2021-11-21 14:43 | disposition home or self-care (01) | LOC: ANHCPREHAB 13:30 | PROVIDERS: PCP Family Medicine; Visit Provider Internal Medicine Cardiovascular Disease | DX: Z95.2 Presence of prosthetic heart valve (principal) | CPT/HCPCS: 93798 ==

== ENCOUNTER → 2022-11-19 14:36 | Outpatient (CLI) | payer MEDICARE, SELFPAY ==
--- NOTE | ~2022-11-19 | CT_ITS ---
EXAMINATION: CT abdomen pelvis wo/w con DATE: 11/19/2022 15:22 INDICATION: Gross hematuria TECHNIQUE: Computed tomography (CT) of the abdomen and pelvis was performed without and with 130 cc O mnipaque 350 intravenous contrast. The dose-length product was 1276.46 mGy-cm. Automated exposure con trol and iterative reconstruction technique were employed. COMPARISON: None. FINDINGS: There is a coarse peripheral interstitial lung disease suggesting chronic interstitial fibr osis. There is atherosclerosis of the coronary arteries and aorta. There is a prosthetic aortic valve . There is a low-density left adrenal mass measuring 3.2 cm, likely benign adenoma. There is a small accessory splenule. There are nonobstructing bilateral renal stones. There are left renal cysts. Smal l hiatal hernia. There are gallstones. There is an infrarenal abdominal aortic aneurysm measuring 3.6 cm. Nonobstructive bowel pattern. Moderate fecal loading of the rectum. There is a left inguinal her patricio containing nonobstructed small bowel and fat. There is a right inguinal hernia containing nonobst ructed small bowel. Ureters are normal in course and caliber. There is mild bladder wall thickening w hich may be due to underdistention or cystitis. There are polypoid filling defects in the bladder lum en. Recommend correlation with cystoscopy to exclude malignancy. Prostate gland is enlarged. Moderate lower thoracic and lumbar spondylosis. IMPRESSION: 1. Polypoid filling defects in the bladder lumen on postcontrast images. Correlation with cystoscopy recommended to exclude underlying malignancy. 2: Moderate bladder wall thickening which may be due to underdistention, outlet obstruction from enla rged prostate gland or cystitis. 3: Left adrenal mass measuring 3.2 cm, likely benign adenoma. 4: Nonobstructing bilateral nephrolithiasis. 5: Infrarenal abdominal aortic aneurysm measuring 3.6 cm. 6: Cholelithiasis. Reviewed, dictated and finalized at location L. IMPRESSION: 1. Polypoid filling defects in the bladder lumen on postcontrast images. Correl ation with cystoscopy recommended to exclude underlying malignancy. 2: Moderate bladder wall thickening which may be due to underdistention, outlet obstruction from enlarged prostate gland or cystitis. 3: Left adrenal mass measuring 3.2 cm, likely benign adenoma. 4: Nonobstructing bilateral nephrolithiasis. 5: Infrarenal abdominal aortic aneurysm measuring 3.6 cm. 6: Cholelithiasis.
[2022-11-19 14:55] LABS: Estimated Glomerular Filt Rate > 60
== END ==
PROVIDERS: PCP Family Medicine; Visit Provider Urology
DX: R31.0 Gross hematuria (principal); D35.02 Benign neoplasm of left adrenal gland; N20.0 Calculus of kidney; K80.20 Calculus of gallbladder without cholecystitis without obstruction; I71.43 Infrarenal abdominal aortic aneurysm, without rupture
CPT/HCPCS: 74178; Q9967

== ENCOUNTER 2023-01-07 12:30 | Outpatient (CLI) | payer MEDICARE, SELFPAY ==
--- NOTE | ~2023-01-07 | PE_ITS ---
EXAMINATION: PET_PETPSMAST_PT DATE: 01/07/2023 14:54 INDICATION: Malignant neoplasm of prostate. TECHNIQUE: 8.820 mCi of piflufolastat F-18 was administered intravenously. Low dose computed tomograp hy (CT) images were acquired from the base of the brain to the proximal thighs for attenuation correc tion and anatomic localization. Automated exposure control was employed. Dose-length product (DLP) wa s 547 mGy-cm. Positron emission tomography (PET) images were acquired in the same distribution. COMPARISON: CT abdomen and pelvis 11/19/2022 FINDINGS: Head/neck: There are no pathologically enlarged lymph nodes. Chest: The lungs demonstrate mild atelectasis and chronic interstitial lung disease. Calcified pulmon kirk nodules are consistent with old granulomas disease. No pleural effusion. The heart size is normal . There are changes of aortic valve replacement. There are coronary artery calcifications. There is a left chest wall pacer with leads in the right atrium and right ventricle. There are no pathologicall y enlarged lymph nodes. Abdomen/pelvis/proximal thighs: The liver is normal. There are gallstones in the gallbladder, which i s normal in size. The spleen, pancreas, and right adrenal gland are normal. There is a 3.1 cm mass in left adrenal gland measuring 18. There is a 4 mm stone in right kidney. There is a 3 mm stone in lef t kidney. There is a 2.8 cm cyst in left kidney. There is calcified atherosclerosis of the aorta and many of the other arteries. The prostate is moderately enlarged. There is increased activity in the p rostate bilaterally measuring up to 31.1. There is diffuse bladder wall thickening, likely secondary to chronic outlet obstruction. There are bilateral inguinal hernias containing fat. The rectum is dis tended, likely adynamic ileus. There is a 3.6 cm fusiform aneurysm of infrarenal aorta. There are no pathologically enlarged lymph nodes. There is any increased activity in a normal-sized perirectal lym ph node with maximum SUV of 5.4. There is no free intraperitoneal fluid. There is focal increased act ivity at the posterior margin of the sacrum on the left with maximum SUV of 9.4. IMPRESSION: 1. Moderately enlarged prostate with increased activity, consistent with primary malignancy. 2. Normal sized perirectal lymph node with increased activity, consistent with metastatic disease. 3. Focal increased activity at the posterior margin of the sacrum on the left without abnormal CT cor relate, which may be inflammation or metastatic disease. Reviewed, dictated and finalized at location A. ENTER PACKING IMPRESSION: 1. Moderately enlarged prostate with increased activity, consistent with primar y malignancy. 2. Normal sized perirectal lymph node with increased activity, consistent with metastatic disease. 3. Focal increased activity at the posterior margin of the sacrum on the left w ithout abnormal CT correlate, which may be inflammation or metastatic disease.
== END 2023-01-07 12:31 | disposition home or self-care (01) ==
PROVIDERS: PCP Family Medicine; Visit Provider Urology
DX: C61 Malignant neoplasm of prostate (principal)
CPT/HCPCS: 78815; A9595

== ENCOUNTER 2023-05-05 13:21 | Outpatient (CLI) | payer MEDICARE, SELFPAY ==
--- NOTE | ~2023-05-05 | PE_ITS ---
EXAMINATION: PET_PETPSMAST_PT DATE: 05/05/2023 15:42 INDICATION: Malignant neoplasm of the prostate TECHNIQUE: 8.893 mCi of pipflufolastat F-18 (18-F-DCFPyL) was administered i.v. Low dose computed to mography (CT) images were acquired from the base of the brain to the base of the brain to the proxima l thighs for attenuation correction and anatomic localization. Positron emission tomography (PET) isiah ges were acquired in the same distribution beginning 97 minutes after injection. Images including fus ed PET/CT images were reconstructed in axial, coronal, and sagittal planes. Automated exposure contro l technique was employed. The dose-length product was 603.71mGy-cm. COMPARISON: 01/07/2023 FINDINGS: Head/neck: Typical pattern of symmetric physiologic increased activity in the lacrimal, parotid and submandibula r glands as well as along the mucosa of the nasal and oral cavities, the lusi-, naso- and hypopharynx, the glottis and esophagus. There is also a typical pattern of symmetric tiny foci of mild likely phy siologic neural ganglia uptake at a few bilateral cervical neural foramina. No pathologically enlarge d cervical lymphadenopathy or suspicious foci of increased uptake in the visualized head or neck. Chest: Again seen is peripheral predominant chronic interstitial lung disease. Calcified right upper lobe no dule consistent with old granulomatous disease. No suspicious pulmonary nodules, pneumonia, pulmonary edema or pleural effusion. Heart size is normal. Atherosclerotic coronary artery calcific location. Aortic valve repair. Dual-lead cardiac pacemaker with lead tips at the right atrial appendage and at the apex of the right ventricle. No pericardial effusion. Thoracic aorta is normal in caliber. Small sliding-type hiatal hernia. No pathologically enlarged or PSMA avid thoracic lymphadenopathy. Abdomen/pelvis/proximal thighs: Physiologic renal accumulation and excretion of activity in the kidneys, bladder and along portions o f ureters. Moderate prostatomegaly. Heterogeneous increased uptake at the prostate which has decrease d since the prior study. Most intense focus remains at the left peripheral zone with maximal SUV of 1 4.7, previously 31.1. Normal degree and slightly heterogenous pattern of increased uptake throughout the liver and spleen without radiologic correlate or dominant PSMA avid lesion. There are few small g allstones along the dependent aspect of the normal partially decompressed gallbladder. The pancreas a nd right adrenal gland are normal. No significant interval change in a 2.9 cm left adrenal mass since CT dated 01/23/2022 most consistent with an adenoma. Moderate uptake scattered throughout the bowels with typical duodenal and proximal jejunal predominance and without radiologic correlate, also likely physiologic. Small bilateral fat-containing inguinal hernias. The prior increased uptake associated with a subcentimeter left perirectal lymph node has resolved. No change in a fusiform infrarenal abdo kelle aortic aneurysm measuring up to 3.6 cm. No other abnormal foci of increased uptake or pathologi audra enlarged lymphadenopathy in the abdomen, pelvis or proximal thighs. Musculoskeletal: There are bridging osteophytes at multiple levels in the thoracic spine consistent with diffuse idiop athic skeletal hyperostosis (DISH). A small focus of mild uptake previously seen along the posterior margin of the sacrum is no longer visualized. No suspicious lytic, blastic or abnormally PSMA avid sylvester ne lesions to suggest metastatic disease. IMPRESSION: 1. Interval decrease in PSMA uptake at the prostate the most intense focus remaining in the left matilde pheral zone with decreased maximal SUV from 31.1 to 14.7 consistent with response to treatment of ana paula garcía prostate cancer. 2. Interval resolution of prior mild PSMA associated with a left perirectal lymph node and along the posterior margin of the sacrum
== END 2023-05-05 13:22 | disposition home or self-care (01) ==
PROVIDERS: PCP Family Medicine; Visit Provider Urology
DX: C61 Malignant neoplasm of prostate (principal)
CPT/HCPCS: 78815; A9595

== ENCOUNTER 2023-05-12 08:09 | Outpatient (CLI) | payer MEDICARE, SELFPAY ==
[2023-05-12 10:11] LABS: Prostate Specific Antigen 0.6 ng/mL (< OR = 4.0)
== END 2023-05-12 08:10 | disposition home or self-care (01) ==
PROVIDERS: PCP Family Medicine; Visit Provider Urology
DX: C61 Malignant neoplasm of prostate (principal)
CPT/HCPCS: 36415; 84153

== ENCOUNTER 2024-03-04 16:38 | Inpatient (IN) | payer MEDICARE, SELFPAY ==
[2024-03-04] VITALS (8 sets, daily range): BP systolic 93–118; BP diastolic 52–65; PULSE 63–77; RESP 13–18; TEMP 36.3–36.4; O2SAT 96–100; BMI 22.8
--- NOTE | ~2024-03-04 | US_ITS ---
EXAMINATION: US retroperitoneal duplex ltd DATE: 03/12/2024 11:08 INDICATION: Portal vein thrombosis. TECHNIQUE: Multiple grayscale and Doppler ultrasound images of the abdomen were obtained. COMPARISON: CT abdomen and pelvis 03/11/2024 FINDINGS: The left, middle, and right hepatic veins are patent. There is decreased pulsatility of the hepatic veins. There is normal flow in main portal vein. IMPRESSION: 1. Normal flow in main portal vein. 2. Decreased pulsatility of the hepatic veins, which may be seen with liver disease, hepatic vein thr ombosis, or hepatic venous outflow obstruction. Reviewed, dictated and finalized at location A. ICING SPECIALIST IMPRESSION: 1. Normal flow in main portal vein. 2. Decreased pulsatility of the hepatic veins, which may be seen with liver dis ease, hepatic vein thrombosis, or hepatic venous outflow obstruction.
--- NOTE | ~2024-03-04 | XR_ITS ---
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 RESULT: Lines, tubes, and devices: Left chest pacer with intact leads. Valve replacement. Lungs and pleura: Mild chronic diffuse reticular opacities, representing chronic interstitial change . No focal consolidation, pleural effusion, or pneumothorax. Cardiomediastinal silhouette: Stable. Other: No acute osseous or upper abdominal finding. IMPRESSION: No acute cardiopulmonary process. Reviewed, dictated and finalized at location K. STIAN MINISTRIES PROFESSOR
--- NOTE | ~2024-03-04 | XR_ITS ---
INTRAOPERATIVE FLUOROSCOPY: CLINICAL HISTORY: 83 years old Male; LEFT IT NAIL PROCEDURE COMMENTS: Limited intraoperative fluoroscopy of the left hip was performed. CUMULATIVE DOSE: 19.6 mGy FLUOROSCOPY TIME: 2 minutes and 15 seconds FINDINGS/IMPRESSION: Please refer to operative note for further details. Reviewed, dictated and finalized at location A. HANDLER ASSISTANT
--- NOTE | ~2024-03-04 | CT_ITS ---
EXAMINATION: CT chest abdomen pelvis wo con DATE: 03/07/2024 13:08 INDICATION: Acute anemia. Abdominal tenderness and distention. TECHNIQUE: Computed tomography (CT) of the chest, abdomen, and pelvis was performed without intraveno us contrast. Automated exposure control and iterative reconstruction technique were employed. The dos e-length product was 728.08 mGy-cm. COMPARISON: CT abdomen and pelvis 11/19/2022 FINDINGS: CHEST CT: There is widespread chronic peripheral septal thickening in the lungs. There is mild bronchiectasis i n the inferior lungs. No honeycombing. 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 No pleural effusion. There is left atrial enlargement of the heart. There are changes o f aortic valve replacement. There are coronary artery calcifications. No pericardial effusion. There is a left chest wall pacer with leads in the right atrium and right ventricle. There is a small slidi ng hiatal hernia. There are bridging endplate osteophytes at multiple levels in the spine, consistent with diffuse idiopathic skeletal hyperostosis (DISH). ABDOMEN/PELVIS CT: The liver and spleen are normal. There are gallstones in the gallbladder, which is normal in size. Th e pancreas and right adrenal gland are normal. There is a 3.0 cm mass in left adrenal gland, stable f rom 11/19/2022, likely an adenoma. There are 6 mm and 4 mm stones in right kidney. There are cysts in left kidney measuring up to 2.4 cm. The prostate is mildly enlarged. There are bilateral inguinal her nias containing fat. The rectosigmoid is distended, likely adynamic ileus. There is diverticulosis of the colon without evidence of diverticulitis. The appendix is normal. There is calcified atheroscler osis of the aorta and many of the other arteries. There is a 3.7 cm fusiform aneurysm of infrarenal a kem. There is a comminuted intertrochanteric fracture of proximal left femur. There is mild lumbar s pondylosis. IMPRESSION: 1. Comminuted intertrochanteric fracture of proximal left femur. 2. 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 3. Distended rectosigmoid, likely adynamic ileus. 4. 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 Reviewed, dictated and finalized at location A. NISTRATIVE DIRECTOR IMPRESSION: 1. Comminuted intertrochanteric fracture of proximal left femur. 2. Chronic interstitial lung disease in a pattern of usual interstitial pneumon ia (UIP). 3. Distended rectosigmoid, likely adynamic ileus. 4. 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
--- NOTE | ~2024-03-04 | CT_ITS ---
EXAMINATION: CT brain wo con DATE: 03/04/2024 19:08 INDICATION: fall . TECHNIQUE: Computed tomography (CT) of the head was performed without intravenous contrast. The mA wa s adjusted according to patient size. Iterative reconstruction technique was employed. The dose-lengt h product was 681.00 mGy-cm. COMPARISON: 01/23/2021. FINDINGS: No acute intracranial hemorrhage or extra-axial fluid collection. No hydrocephalus, mass, or herniation. No acute ischemic infarct. Unremarkable dural venous sinus attenuation. No acute osseous abnormality. The aerated spaces are clear. Moderate atrophy and chronic white matter change. Atherosclerotic intracranial calcification. Bilater al lens replacements. Old bilateral basal ganglia lacunar infarcts. Old focal left cerebellar hemisph ere infarct. IMPRESSION: No acute intracranial process. Reviewed, dictated and finalized at location K. OCK MAKER
--- NOTE | ~2024-03-04 | CT_ITS ---
EXAMINATION: CT abdomen pelvis wo con DATE: 03/11/2024 10:15 INDICATION: Abdominal pain. Adynamic ileus. TECHNIQUE: Computed tomography (CT) of the abdomen and pelvis was performed without intravenous contr ast. Automated exposure control and iterative reconstruction technique were employed. The dose-length product was 501.78 mGy-cm. COMPARISON: 03/07/2024 FINDINGS: Again seen is chronic peripheral irregular septal line thickening consistent with chronic interstitia l lung disease with associated mild bronchiectasis. Heart size is normal. Atherosclerotic coronary ar monika calcific location. Partially visualized aortic valve repair. Dual-lead cardiac pacemaker with le ad tips at the right atrial appendage and near the apex of the right ventricle. Small sliding-type hi atal hernia. Dependently layering sludge and a few small gallstones in the otherwise normal-appearing gallbladder. Liver, spleen, pancreas and right adrenal gland are normal. 3 cm left adrenal mass, unchanged from most likely an adenoma. Bilateral renal cysts the largest on the left measuring 3.4 cm. Unch anged 6 mm right renal stone. A second tiny previously seen right renal stone is no longer visualized in the right kidney or along the course of the right ureter. No hydronephrosis. There is some liquid stool throughout the colon consistent with nonspecific diarrhea. Normal appendix. No bowel obstructi on. Gas and a Villeda catheter within the decompressed bladder. Prostatic calcifications. Small fat-con taining left inguinal hernia. No free intraperitoneal gas or fluid. No pathologically enlarged abdomi nal or pelvic lymphadenopathy. No significant interval change in a 3.5 cm fusiform infrarenal abdomin al aortic aneurysm. The previously seen acute comminuted intratrochanteric fracture of the proximal l eft femur has been reduced to near-anatomic alignment with interval antegrade intramedullary tammy and femoral neck compression screw fixation. IMPRESSION: 1. Persistent liquid stool throughout the colon consistent with nonspecific diarrhea. No bowel obstru ction. 2. Cholelithiasis. 3. Nonobstructing right nephrolithiasis. 4. Chronic interstitial lung disease with associated mild bronchiectasis in the visualized lower lung s. 5. Unchanged 3.5 cm fusiform infrarenal abdominal aortic aneurysm. 6. Interval reduction and internal fixation of the recent comminuted intratrochanteric fracture of th e proximal left femur. Reviewed, dictated and finalized at location B. SCIENCE TECHNICIAN IMPRESSION: 1. Persistent liquid stool throughout the colon consistent with nonspecific jabari rrhea. No bowel obstruction. 2. Cholelithiasis. 3. Nonobstructing right nephrolithiasis. 4. Chronic interstitial lung disease with associated mild bronchiectasis in the visualized lower lungs. 5. Unchanged 3.5 cm fusiform infrarenal abdominal aortic aneurysm. 6. Interval reduction and internal fixation of the recent comminuted intratroch anteric fracture of the proximal left femur.
--- NOTE | ~2024-03-04 | US_ITS ---
TESTICULAR ULTRASOUND (Doppler ultrasound interrogation techniques used as needed for this exam.) Ordering provider: Thierry Soriano MD History: . swelling . Comparison: None. FINDINGS: TESTICLES: Normal in size. The right measures 2.6x 2.6x 2.3 cm and the left measures 2.6x 2.9x 2.6 cm . Normal echogenicity bilaterally without mass lesion. Normal Doppler flow bilaterally. EPIDIDYMIDES: Normal in size. The right measures 1x 1.1x 1.6 cm and the left shows a cyst which measu res 2.3 x 1.7 x 2.2 cm. Normal echogenicity bilaterally. Both demonstrate normal Doppler flow. HYDROCELE: Bilateral moderate. VARICOCELE: None. OTHER ABNORMALITY: None seen. Augmentation is seen around both testicles suggestive of edema and possibly inflammatory changes.. IMPRESSION: No evidence of torsion or epididymo-orchitis. Bilateral hydroceles. Left epididymal cyst. Inflammator y changes around the testicles which are most likely suggestive of cellulitis. Follow-up advised. Oth erwise, normal testicular ultrasound. Reviewed, dictated and finalized at location A. BECK REEL OPERATOR IMPRESSION: No evidence of torsion or epididymo-orchitis. Bilateral hydroceles. Left epidid ymal cyst. Inflammatory changes around the testicles which are most likely sugg estive of cellulitis. Follow-up advised. Otherwise, normal testicular ultrasoun d.
--- NOTE | ~2024-03-04 | XR_ITS ---
EXAM: XR hip LT 2V w AP pelvis DATE: 03/04/2024 18:55 HISTORY: FALL, hip pain . COMPARISON: None. FINDINGS: Osteopenia. Scattered vascular calcifications. Degenerative changes in the lumbar spine. C omminuted left intertrochanteric fracture with medial angulation. No other fracture identified. Scatt ered pelvic enthesopathy. Degenerative changes in the bilateral hips. IMPRESSION: Comminuted intertrochanteric fracture of the left femur. Reviewed, dictated and finalized at location K. PER OPERATOR
--- NOTE | 2024-03-04 20:01 | ECG_ITS ---
Test Date: 2024-03-04 20:33:58 Measurements Intervals Miranda Rate: 82 P: 224 SD: 179 QRS: -5 QRSD: 158 T: 22 QT: 440 QTc: 516 Interpretive Statements ELECTRONIC ATRIAL PACEMAKER WITH OCCASIONAL PREMATURE VENTRICULAR CONTRACTIONS RIGHT BUNDLE BRANCH BLOCK [120+ ms QRS DURATION, UPRIGHT V1, 40+ ms S IN I/aVL/V4/V5/V6] ABNORMAL ECG No previous ECG available for comparison Electronically Signed On 03-05-2024 10:45:36 AUTO SERVICE WRITER by Philippe Benitez M.D.
--- NOTE | 2024-03-04 20:05 | ED_ITS ---
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 Patient presents to the emergency department after a ground level mechanical fall. Patient states that he was in the garage trying move some equipment in the garage. He noted that he slipped in the garage and fell onto his left hip. Fell to the ground but did not strike his head. States he took his Eliquis this morning. He states he was not able to get up secondary to pain in his left hip. No nausea, vomiting, chest pain, shortness a breath, back pain, weakness or sensory deficits. He called out for his and they called EMS for transport. Patient was otherwise in his normal state of health. Related Data Home Medications ?Medication ?Instructions ?Recorded ?Confirmed ?Last Taken ?Type apixaban 5 mg tablet 5 mg PO BID 05/23/21 10/23/22 Unknown History famotidine 10 mg tablet 10 mg PO DAILY 05/23/21 10/23/22 Unknown History folic acid 1 mg tablet 1 mg PO DAILY 05/23/21 10/23/22 Unknown History furosemide 20 mg tablet 10 mg PO QAM 05/23/21 10/23/22 Unknown History multivitamin-iron 9 mg-folic acid 1 tablet PO DAILY 05/23/21 10/23/22 Unknown History 400 mcg-calcium and minerals tablet (Thera-M) sacubitril 24 mg-valsartan 26 mg 1 tablet PO BID 05/23/21 10/23/22 Unknown History tablet carvedilol 3.125 mg tablet 3.125 mg PO ONCE 12/24/21 10/23/22 Unknown History loperamide 2 mg capsule (Imodium 2 mg PO Q6H PRN 12/24/21 10/23/22 Unknown History A-D) Allergies Allergy/AdvReac Type Severity Reaction Status Date / Time No Known Allergies Allergy Unknown Verified 10/23/22 11:41 Review of Systems 2 Review of Systems: As reviewed above in HPI FOR[facility]LY [facility], [facility] Past Medical History Medical History Pulmonary thrombosis Pacemaker Alcoholism Parkinsons disease Skin cancer Fatty liver Skull fracture Arthritis GERD (gastroesophageal reflux disease) Pneumonia Pulmonary embolism DVT (deep venous thrombosis) Seasonal allergies Surgical History Surgical History H/O heart valve replacement with bioprosthetic valve H/O local excision of skin lesion History of tonsillectomy Family History Family History Father Congestive heart failure Heart disease Mother Heart disease Breast cancer Sibling Breast cancer Hx of CABG Social History Social History Smoking packs per day: 1 Smoking cigarettes per day: 20.0 Years smoked: 20 Smoking pack-years: 20.00 Smoking status: Former smoker Tobacco type: cigarettes Second hand tobacco smoke exposure: Yes Additional smoking assessment comments: quit in 1971 Alcohol intake: never Drinks per week: 7 Substance use: never Substance use type: does not use Lack of Transportation: No Lack of Food: Never True Current Housing: I Have Housing Concerned About Future Housing: No Difficulty Paying Gas/Electric Bills: No Difficulty Paying for Meds: No Currently Unemployed: No Education: Master's Degree or Higher Difficulty w/ Childcare or Family Care: YES Living arrangements: with family Additional living arrangements comments: Occupation/Education: retired Gender identity (if verbalized by the patient): Male Sexual Orientation (if Verbalized by the Patient): Straight or Heterosexual Spiritual care concerns: No Agree to blood products: Yes Exam 2 Narrative: GENERAL: [Well-appearing, well-nourished, and in no acute distress.] HEAD: [Normocephalic, atraumatic.] EYES: [PERRLA and EOMI.] ENT: Nares clear, no rhinorrhea or epistaxis. Mucous membranes moist. NECK: Supple. CHEST: [Clear to auscultation. No respiratory distress.] HEART: [Regular rate and rhythm]. No murmur heard. [Normal peripheral pulses.] ABDOMEN: [Soft, nondistended], [nontender], [No rigidity or guarding] EXTREMITIES: Left lower extremity with tenderness to palpation in the left lateral proximal hip, no overlying skin changes or swelling. Slightly flexed at the hip and externally rotated, plantar and dorsiflexion intact at the ankle, full strength and sensation distally. No tenderness to palpation or step-offs to the spine, no obvious head trauma. SKIN: Warm, dry, no rash. NEURO: [No focal deficits]. Alert and oriented [x3.] Distal strength and sensation intact throughout both arms and legs. Answers all questions appropriately. PSYCH: [Normal mood and affect.] Course Vital Signs Vital signs: Vital Signs Temperature 36.3 C L 03/04/24 16:40 Pulse Rate 77 03/04/24 16:40 Respiratory Rate 18 03/04/24 16:40 Blood Pressure 93/57 L 03/04/24 16:40 Pulse Oximetry 98 03/04/24 16:40 Oxygen Delivery Room Air 03/04/24 16:40 Temperature 36.3 C L 03/04/24 16:40 Pulse Rate 68 03/04/24 21:08 Respiratory Rate 16 03/04/24 21:08 Blood Pressure 118/63 03/04/24 21:08 Pulse Oximetry 100 03/04/24 21:08 Oxygen Delivery Room Air 03/04/24 16:40 MDM - Extremity Injury (Lower) MDM Narrative Medical decision making narrative: 83-year-old male with complex cardiac history including heart block status post pacemaker, CHF with reduced ejection fraction, atrial fibrillation on Eliquis, aortic stenosis. He presents today after a mechanical fall in his garage with pain to his left hip. He did not strike his head but did take his Eliquis this morning. He is complaining of pain in his left hip and does have a externally rotated and flexed left lower extremity. Focal tenderness to the proximal left hip in concern for hip fracture at this time. No obvious trauma to his head or neck but given his age and risk factors a CT of the head was obtained is do a chest x-ray and hip and pelvis x-ray. Blood work was obtained as well as preop laboratory screenings including EKG. He was provided 4 mg of morphine for analgesia. Head CT shows no acute intracranial process. 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 Chest x-ray shows no acute cardiopulmonary process. X-ray of the hip and pelvis was independently reviewed and shows a comminuted intertrochanteric fracture of the left femur proximally. Consult was placed Orthopedic surgery and I am waiting to discuss with them over the phone at this time. Spoke to Orthopedic surgery and Dr. Brenner over the phone, went over patient's imaging studies, clinical assessment and plan of care. Recommendations to admit the hospitalist team for operative intervention during his admission. Spoke to the hospitalist Dr. Soliz and we went over patient's care plan, patient did receive a L of fluid with improvement in his soft blood pressure. On review of the EMR he does have chronically soft blood pressures over the last few years. Urine hemodynamically stable here, imaging studies show no other injuries besides the hip and he can be safely admitted to a [facility] bed at this time. Medical Records Attestation: I reviewed the patient's medical records. Lab Data Attestation: I reviewed the patient's lab results. 03/04/24 20:22 03/04/24 20:22 Labs: Lab Results 03/04/24 Range/Units 20:22 WBC 11.8 H (4.5-10.0) K/mm3 RBC 4.49 L (4.6-6.20) M/mm3 Hgb 12.8 L (14.0-18.0) g/dL Hct 37.9 L (42.0-52.0) % MCV 84.4 (80-100) fl MCH 28.5 (26-34) pg MCHC 33.8 (32-36) g/dl RDW 12.6 (11.5-14.5) % Plt Count 153 (150-375) k/mm3 MPV 11.3 H (7.4-10.4) fl Immature Gran % (Auto) 0.4 (0-0.5) % Neut % (Auto) 83.6 H (45.5-73.1) % Lymph % (Auto) 9.2 L (18.3-44.2) % Sargent % (Auto) 6.3 (2.6-8.5) % Eos % (Auto) 0.2 (0-4.4) % Baso % (Auto) 0.3 (0.2-1.2) % Lymph # (Auto) 1.08 (0.9-3.2) K/mm3 Sargent # (Auto) 0.7 H (0.1-0.6) K/mm3 Eos # (Auto) 0.0 (0-0.3) K/mm3 Baso # (Auto) 0.0 (0.0-0.1) K/mm3 Abs Immat Gran (auto) 0.05 H (0.00-0.031) K/mm3 Absolute Neuts (auto) 9.8 H (1.3-6.7) K/mm3 Absolute Nucleated RBC 0.000 (0.0-0.012) K/mm3 Nucleated RBC % 0.0 (0.0-0.2) % PT 13.8 (11.1-14.7) Seconds INR 1.0 APTT 30.0 (22.3-36.8) Seconds Sodium 138 (137-145) mmol/L Potassium 4.7 (3.4-5.0) mmol/L Chloride 105 (98-107) mmol/L Carbon Dioxide 27 (22-30) mmol/L Anion Gap 6 (4-12) mmol/L BUN 23 H D (9-20) mg/dL Creatinine 0.90 (0.7-1.3) mg/dL Estim Creat Clear Calc 61 ml/min Estimated GFR > 60 (59 - ) Glucose 145 H (65-110) mg/dL Calcium 10.4 H (8.4-10.2) mg/dL Magnesium 2.2 (1.6-2.3) mg/dL Total Bilirubin 0.8 (0.2-1.3) mg/dL AST 38 (17-59) U/L ALT 19 (6-50) U/L Alkaline Phosphatase 80 (38-126) U/L Total Protein 7.0 (6.3-8.2) g/dL Albumin 3.9 (3.5-5.1) g/dL Imaging Data Attestation: I personally reviewed and interpreted this imaging study as follows: My impression: Impressions Head CT 03/04/24 19:10 IMPRESSION: No acute intracranial process. Chest X-Ray 03/04/24 19:12 IMPRESSION: No acute cardiopulmonary process. Hip/Pelvis X-Ray 03/04/24 19:15 IMPRESSION: Comminuted intertrochanteric fracture of the left femur. Discharge Plan Discharge Clinical Impression: Closed intertrochanteric fracture of femur, Ground-level fall Patient Disposition: Still a Patient Condition: Stable Patient Language: Italian Prescriptions: No Action loperamide [Imodium A-D] 2 mg capsule 2 mg PO Q6H PRN atorvastatin 80 mg Tablet 80 mg PO HS Qty: 30 0RF apixaban 5 mg tablet 5 mg PO BID famotidine 10 mg tablet 10 mg PO DAILY folic acid 1 mg tablet 1 mg PO DAILY furosemide 20 mg tablet 10 mg PO QAM sacubitril-valsartan 24-26 mg tablet 1 tablet PO BID Thera-M 9 mg iron-400 mcg tablet 1 tablet PO DAILY carvedilol 3.125 mg tablet 3.125 mg PO ONCE Rx Instructions: must administer with a meal/food hyoscyamine sulfate 0.125 mg tablet, sublingual 0.125 mg sublingual QID PRN (Reason: dyspepsia) Qty: 120 2RF Follow-up/Referrals: Georgiana Tripp DO [Primary Care Provider] - Time of Disposition: 21:25
[2024-03-04] MEDS: MORPHINE SULFATE (*CRX) 4 MG/ML INJ IV PUSH (20:26)
[2024-03-04] MEDS: LACTATED RINGERS 1,000 ML 999 ML IV CONT (20:27)
[2024-03-04 20:28] LABS: Basophils Percent Auto 0.3 % (0.2-1.2); Eosinophils Percent Auto 0.2 % (0-4.4); Hematocrit 37.9 % (42.0-52.0); Hemoglobin 12.8 g/dL (14.0-18.0); Immature Granulocyte Absolute 0.05 K/mm3 (0.00-0.031); Immature Granulocyte Percent A 0.4 % (0-0.5); Lymphocytes Absolute Auto 1.08 K/mm3 (0.9-3.2); Lymphocytes Percent Auto 9.2 % (18.3-44.2); Mean Corpuscular HGB Conc 33.8 g/dl (32-36); Mean Corpuscular Hemoglobin 28.5 pg (26-34); Mean Corpuscular Volume 84.4 fl (80-100); Mean Platelet Volume 11.3 fl (7.4-10.4); Monocytes Absolute Auto 0.7 K/mm3 (0.1-0.6); Monocytes Percent Auto 6.3 % (2.6-8.5); Neutrophils Absolute Auto 9.8 K/mm3 (1.3-6.7); Neutrophils Percent Auto 83.6 % (45.5-73.1); Platelet Count Result 153 k/mm3 (150-375); Red Blood Count 4.49 M/mm3 (4.6-6.20); Red Cell Distribution Width 12.6 % (11.5-14.5); White Blood Count 11.8 K/mm3 (4.5-10.0)
[2024-03-04 20:40] LABS: Alanine Aminotransferase 19 U/L (6-50); Albumin Level 3.9 g/dL (3.5-5.1); Alkaline Phosphatase 80 U/L (38-126); Anion Gap 6 mmol/L (4-12); Aspartate Amino Transferase 38 U/L (17-59); Bilirubin,Total 0.8 mg/dL (0.2-1.3); Blood Urea Nitrogen 23 mg/dL (9-20); Calcium 10.4 mg/dL (8.4-10.2); Carbon Dioxide 27 mmol/L (22-30); Chloride 105 mmol/L (98-107); Estimated CRCL calculation 61 ml/min; Estimated Glomerular Filt Rate > 60; Glucose 145 mg/dL (65-110); Magnesium 2.2 mg/dL (1.6-2.3); Potassium 4.7 mmol/L (3.4-5.0); Sodium 138 mmol/L (137-145)
[2024-03-04 20:42] LABS: Prothrombin Time 13.8 Seconds (11.1-14.7)
--- NOTE | 2024-03-04 20:54 | P.HP_ITS ---
H&P: HPI History of Present Illness Date/Time: 03/04/24 20:54 Chief Complaint: Fall Narrative: This is an 83-year-old male with past medical history significant for pulmonary thrombosis, pacemaker, alcoholism, Parkinson's disease, fatty liver disease, arthritis, GERD, deep vein thrombosis. Patient was brought to the emergency room after he had a fall ground level mechanical fall while using his walker, patient was unable to get back up. Patient denies loss of consciousness. Preliminary workup was significant for comminuted intertrochanteric fracture of the left femur. Patient has been admitted for further evaluation management and treatment. 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 RESULT: Lines, tubes, and devices: Left chest pacer with intact leads. Valve replacement. Lungs and pleura: Mild chronic diffuse reticular opacities, representing chronic interstitial change. No focal consolidation, pleural effusion, or pneumothorax. Cardiomediastinal silhouette: Stable. Other: No acute osseous or upper abdominal finding. IMPRESSION: No acute cardiopulmonary process. EXAM: XR hip LT 2V w AP pelvis DATE: 03/04/2024 18:55 HISTORY: FALL, hip pain . COMPARISON: None. FINDINGS: Osteopenia. Scattered vascular calcifications. Degenerative changes in the lumbar spine. Comminuted left intertrochanteric fracture with medial angulation. No other fracture identified. Scattered pelvic enthesopathy. Degenerative changes in the bilateral hips. IMPRESSION: Comminuted intertrochanteric fracture of the left femur. EXAMINATION: CT brain wo con DATE: 03/04/2024 19:08 INDICATION: fall . TECHNIQUE: Computed tomography (CT) of the head was performed without intravenous contrast. The mA was adjusted according to patient size. Iterative reconstruction technique was employed. The dose-length product was 681.00 mGy- cm. COMPARISON: 01/23/2021. FINDINGS: No acute intracranial hemorrhage or extra-axial fluid collection. No hydrocephalus, mass, or herniation. No acute ischemic infarct. Unremarkable dural venous sinus attenuation. No acute osseous abnormality. The aerated spaces are clear. Moderate atrophy and chronic white matter change. Atherosclerotic intracranial calcification. Bilateral lens replacements. Old bilateral basal ganglia lacunar infarcts. Old focal left cerebellar hemisphere infarct. IMPRESSION: No acute intracranial process. Review of Systems Review of Systems: Fall, left hip pain with movement, unable to bear weight. FORMERLY [facility] Past Medical History Medical History Pulmonary thrombosis Pacemaker Alcoholism Parkinsons disease Skin cancer Fatty liver Skull fracture Arthritis GERD (gastroesophageal reflux disease) Pneumonia Pulmonary embolism DVT (deep venous thrombosis) Seasonal allergies Surgical History Surgical History H/O heart valve replacement with bioprosthetic valve H/O local excision of skin lesion History of tonsillectomy Family History Family History Father Congestive heart failure Heart disease Mother Heart disease Breast cancer Sibling Breast cancer Hx of CABG Social History Social History Smoking packs per day: 1 Smoking cigarettes per day: 20.0 Years smoked: 20 Smoking pack-years: 20.00 Smoking status: Former smoker Second hand tobacco smoke exposure: Yes Additional smoking assessment comments: quit in 1971 Alcohol intake: never Drinks per week: 7 Substance use: never Substance use type: does not use Do You Feel Safe in your Home?: Yes Lack of Transportation: No Lack of Food: Never True Current Housing: I Have Housing Concerned About Future Housing: No Difficulty Paying Gas/Electric Bills: No Difficulty Paying for Meds: No Currently Unemployed: No Education: Master's Degree or Higher Difficulty w/ Childcare or Family Care: YES Living arrangements: with family Additional living arrangements comments: Occupation/Education: retired Gender identity (if verbalized by the patient): Male Sexual Orientation (if Verbalized by the Patient): Straight or Heterosexual Spiritual care concerns: No Agree to blood products: Yes Meds Home Medications and Allergies Home Medications ?Medication ?Instructions ?Recorded ?Confirmed ?Type atorvastatin 80 mg tablet 80 mg PO HS #30 tabs 05/27/19 03/04/24 Rx apixaban 5 mg tablet 5 mg PO BID 05/23/21 03/04/24 History famotidine 10 mg tablet 10 mg PO DAILY 05/23/21 03/04/24 History folic acid 1 mg tablet 1 mg PO DAILY 05/23/21 03/04/24 History furosemide 20 mg tablet 10 mg PO QAM 05/23/21 03/04/24 History multivitamin-iron 9 mg-folic acid 1 tablet PO DAILY 05/23/21 03/04/24 History 400 mcg-calcium and minerals tablet (Thera-M) sacubitril 24 mg-valsartan 26 mg 1 tablet PO BID 05/23/21 03/04/24 History tablet carvedilol 3.125 mg tablet 3.125 mg PO ONCE 12/24/21 03/04/24 History loperamide 2 mg capsule (Imodium 2 mg PO Q6H PRN diarrhea 12/24/21 03/04/24 History A-D) hyoscyamine sulfate 0.125 mg 0.125 mg sublingual QID PRN 03/13/22 03/04/24 Rx sublingual tablet dyspepsia #120 tabs sacubitril 24 mg-valsartan 26 mg 1 tablet PO BID 03/04/24 03/04/24 History tablet (Entresto) Allergies Allergy/AdvReac Type Severity Reaction Status Date / Time No Known Allergies Allergy Unknown Verified 10/23/22 11:41 Vital Signs Vital Signs - 24 hr 03/04/24 16:40 03/04/24 20:32 Temperature 97.3 F L Pulse Rate 77 76 Respiratory Rate 18 13 Blood Pressure 93/57 L 96/52 L Pulse Oximetry 98 100 Oxygen Delivery Room Air Exam Narrative: Laying in a stretcher Const: General: comfortable, no acute distress, well developed, alert, awake and thin Nutritional Appearance: average body habitus Orientation/consciousness: patient oriented x3 Other: Well-appearing HENMT: Head: normal to inspection, normocephalic and atraumatic Ears: hearing grossly normal bilaterally Face/Nose/Sinus: normal facial exam Face and sinus: normal facial exam Eyes: General: appearance normal, both eyes and all related structures Pupils: Equal, round and reactive pupils present EOM: EOMs intact bilaterally Neck: Neck: full ROM, no lymphadenopathy and no JVD Thyroid: thyroid normal Lymphatic: no lymphadenopathy noted Resp: Effort & Inspection: normal respiratory effort and able to speak in complete sentences Auscultation: clear to auscultation bilaterally Cardio: Jugular venous distension: no JVD Rate: regular rate Rhythm: regular rhythm Heart sounds: S1 normal heart sound present and S2 normal heart sound present GI: GI Palp: Yes Soft to palpation and Yes No hepatosplenomegaly present : General: Yes deferred Skin: Rashes: no rashes Wounds: no wounds Neuro: General: patient oriented x3 and CN's II-XI intact bilaterally Cranial nerves: Yes CN's II-XII intact bilaterally and Yes Equal, round and reactive pupils present Cognition (Neuro): normal cognition Speech: normal speech Gait exam (Neuro): Unable to assess gait Motor exam (neuro): 5/5 motor strength present throughout Extrem: Other: Left leg is externally rotated and shortened H&P: Results Labs Labs: Short CBC 03/04/24 Range/Units 20:22 WBC 11.8 H (4.5-10.0) K/mm3 Hgb 12.8 L (14.0-18.0) g/dL Hct 37.9 L (42.0-52.0) % Plt Count 153 (150-375) k/mm3 BMP 03/04/24 20:22 Sodium 138 Potassium 4.7 Chloride 105 Carbon Dioxide 27 BUN 23 H D Creatinine 0.90 Glucose 145 H Calcium 10.4 H Liver Function 03/04/24 Range/Units 20:22 Total Bilirubin 0.8 (0.2-1.3) mg/dL AST 38 (17-59) U/L ALT 19 (6-50) U/L Alkaline Phosphatase 80 (38-126) U/L Albumin 3.9 (3.5-5.1) g/dL Assessment and Plan Assessment and plan (1) Ground-level fall: Code(s): W18.30XA - Fall on same level, unspecified, initial encounter Status: Acute Assessment and Plan: Admit to regular medical floor Fall precautions (2) Closed intertrochanteric fracture of femur: Code(s): S72.143A - Displaced intertrochanteric fracture of unspecified femur, initial encounter for closed fracture Status: Acute Assessment and Plan: Supportive care Bed rest Orthopedic surgery consult (3) Alcoholism: Code(s): F10.20 - Alcohol dependence, uncomplicated Status: Acute Assessment and Plan: CIWA as needed (4) Cardiomyopathy: Code(s): I42.9 - Cardiomyopathy, unspecified Status: Acute Assessment and Plan: Resume Entresto (5) Atrial fibrillation with RVR: Code(s): I48.91 - Unspecified atrial fibrillation Status: Acute Assessment and Plan: Rate controlled and anticoagulated (6) Pulmonary embolism: Qualifiers: Acute cor pulmonale presence: without acute cor pulmonale Chronicity: acute Pulmonary embolism type: unspecified Qualified Code(s): I26.99 - Other pulmonary embolism without acute cor pulmonale Code(s): I26.99 - Other pulmonary embolism without acute cor pulmonale Status: Acute Assessment and Plan: Patient is on anticoagulation (7) Parkinsons disease: Code(s): G20 - Parkinson's disease Status: Acute Assessment and Plan: On no meds Hospitalist MIPS Advance Care Plan I have confirmed that the patient's Advanced Care Plan is present, code status is documented, or surrogate decision maker is listed in patient medical record.: Yes Medication Reconciliation I have utilized all available resources to obtain, update and review the patients current medications (includes all prescriptions, OTC, herbals, cannabis, and nutritional supplements).: Yes
--- NOTE | 2024-03-04 21:25 | PC.NURSE ---
this rn updated patient home medications. pt denied need/ want for urinary catheter at this time.
--- NOTE | 2024-03-04 23:15 | ADMGEN ---
This patient, Eren Kulkarni, was admitted to [facility] Surg Room 314-02. Patient/family oriented to hospital policies and general routines including ID bracelet, bed and alarms, visiting hours, pain management, procedures, bathroom and other care routines, personal items, smoking policy, room service/diet, and visiting hours. Information on how to activate the Rapid Response Team has been discussed. Patient/Family are encouraged to report perceived risks to care and to ask questions if they do not understand what they are told or what they should do.
--- NOTE | 2024-03-04 23:15 | ADMGEN ---
This patient, Eren Kulkarni, was admitted to [facility] Surg Room 314-02. Patient/family oriented to hospital policies and general routines including ID bracelet, bed and alarms, visiting hours, pain management, procedures, bathroom and other care routines, personal items, smoking policy, room service/diet, and visiting hours. Information on how to activate the Rapid Response Team has been discussed. Patient/Family are encouraged to report perceived risks to care and to ask questions if they do not understand what they are told or what they should do.
[2024-03-04] MEDS: LACTATED RINGERS 1,000 ML 100 ML IV CONT (23:47)
[2024-03-04] MEDS: ACETAMINOPHEN 325 MG TABLET 650 MG PO (23:47)
[2024-03-05] VITALS (11 sets, daily range): BP systolic 99–105; BP diastolic 47–51; PULSE 62–89; RESP 16–18; TEMP 37–37.3; O2SAT 98
[2024-03-05] MEDS: HYDROmorphone HCL INJ (*CRX) 1 MG/ML SYR 0.5 MG IV PUSH ×2 (03:16→14:12)
[2024-03-05] MEDS: LACTATED RINGERS 1,000 ML 100 ML IV CONT (09:22)
--- NOTE | 2024-03-05 09:54 | P.CONOP_ITS ---
Assessment and Plan Assessment and plan (1) Closed intertrochanteric fracture of femur: Qualifiers: Encounter type: initial encounter Fracture alignment: displaced L aterality: left Qualified Code(s): S72.142A - Displaced intertrochanteric fracture of left femur, initial encounter for closed fracture Code(s): S72.143A - Displaced intertrochanteric fracture of unspecified femur, initial encounter for closed fracture Status: Acute Plan Displaced and comminuted left intertrochanteric hip fracture will benefit from O RIF left hip intertrochanteric fracture, with cephalomedullary nail. (Will use the Arthrex nail) We discussed the risks, benefits, and alternatives to surgery. Significant medical comorbidities. Uses a walker at baseline. Hold anticoagulants. Surgery likely tomorrow or Thursday. Anticipate 4-6 weeks of rehabilitation need. History of Present Illness HPI Consult date: 03/05/24 Chief complaint: Left intertrochanteric hip fracture Narrative: This is an 83-year-old male with past medical history significant for pulmonary thrombosis, pacemaker, alcoholism, Parkinson's disease, fatty liver disease, arthritis, GERD, deep vein thrombosis. Patient was brought to the emergency room after he had a fall ground level mechanical fall while using his walker, patient was unable to get back up. Patient denies loss of consciousness. Preliminary workup was significant for comminuted intertrochanteric fracture of the left femur. Patient has been admitted for further evaluation management and treatment. Review of Systems 2 Review of Systems: Denies loss of consciousness. All systems reviewed & are unremarkable except as noted in HPI and below PMFSH Past Medical History Medical History Pulmonary thrombosis Pacemaker Alcoholism Parkinsons disease Skin cancer Fatty liver Skull fracture Arthritis GERD (gastroesophageal reflux disease) Pneumonia Pulmonary embolism DVT (deep venous thrombosis) Seasonal allergies Surgical History Surgical History H/O heart valve replacement with bioprosthetic valve H/O local excision of skin lesion History of tonsillectomy Family History Family History Father Congestive heart failure Heart disease Mother Heart disease Breast cancer Sibling Breast cancer Hx of CABG Social History Social History Smoking packs per day: 1 Smoking cigarettes per day: 20.0 Years smoked: 20 Smoking pack-years: 20.00 Smoking status: Former smoker Second hand tobacco smoke exposure: Yes Additional smoking assessment comments: quit in 1971 Alcohol intake: never Drinks per week: 7 Substance use: never Substance use type: does not use Do You Feel Safe in your Home?: Yes Lack of Transportation: No Lack of Food: Never True Current Housing: I Have Housing Concerned About Future Housing: No Difficulty Paying Gas/Electric Bills: No Difficulty Paying for Meds: No Currently Unemployed: No Education: Master's Degree or Higher Difficulty w/ Childcare or Family Care: YES Living arrangements: with family Additional living arrangements comments: Occupation/Education: retired Gender identity (if verbalized by the patient): Male Sexual Orientation (if Verbalized by the Patient): Straight or Heterosexual Spiritual care concerns: No Agree to blood products: Yes Meds Home Medications and Allergies Home Medications ?Medication ?Instructions ?Recorded ?Confirmed ?Type atorvastatin 80 mg tablet 80 mg PO HS #30 tabs 05/27/19 03/04/24 Rx apixaban 5 mg tablet 5 mg PO BID 05/23/21 03/04/24 History famotidine 10 mg tablet 10 mg PO DAILY 05/23/21 03/04/24 History folic acid 1 mg tablet 1 mg PO DAILY 05/23/21 03/04/24 History furosemide 20 mg tablet 10 mg PO QAM 05/23/21 03/04/24 History multivitamin-iron 9 mg-folic acid 1 tablet PO DAILY 05/23/21 03/04/24 History 400 mcg-calcium and minerals tablet (Thera-M) sacubitril 24 mg-valsartan 26 mg 1 tablet PO BID 05/23/21 03/04/24 History tablet carvedilol 3.125 mg tablet 3.125 mg PO ONCE 12/24/21 03/04/24 History loperamide 2 mg capsule (Imodium 2 mg PO Q6H PRN diarrhea 12/24/21 03/04/24 History A-D) hyoscyamine sulfate 0.125 mg 0.125 mg sublingual QID PRN 03/13/22 03/04/24 Rx sublingual tablet dyspepsia #120 tabs sacubitril 24 mg-valsartan 26 mg 1 tablet PO BID 03/04/24 03/04/24 History tablet (Entresto) Allergies Allergy/AdvReac Type Severity Reaction Status Date / Time No Known Allergies Allergy Unknown Verified 10/23/22 11:41 Vital Signs Vital Signs - 24 hr 03/04/24 16:40 03/04/24 20:32 03/04/24 21:08 Temperature 36.3 C L Pulse Rate 77 76 68 Respiratory Rate 18 13 16 Blood Pressure 93/57 L 96/52 L 118/63 Pulse Oximetry 98 100 100 Oxygen Delivery Room Air 03/04/24 21:16 03/04/24 21:31 03/04/24 21:46 Temperature Pulse Rate 64 63 71 Respiratory Rate 16 16 14 Blood Pressure 101/64 110/65 102/64 Pulse Oximetry 100 99 96 Oxygen Delivery 03/04/24 23:09 03/04/24 23:21 03/05/24 00:00 Temperature 36.4 C Pulse Rate 76 71 80 Respiratory Rate 18 14 Blood Pressure 115/65 Pulse Oximetry 98 96 Oxygen Delivery Room Air 03/05/24 04:00 03/05/24 06:00 Temperature 37.0 C Pulse Rate 76 62 Respiratory Rate 16 Blood Pressure 105/51 L Pulse Oximetry 98 Oxygen Delivery Exam 2 Narrative: Lower extremity shortened and externally rotated. Moderate thigh swelling. Const: General: no acute distress Eyes: General: appearance normal, both eyes and all related structures Resp: Effort & Inspection: normal respiratory effort GI: GI Palp: Yes Soft to palpation and No Guarding due to palpation present (GI) Urinary Catheter: Urinary Catheter: patent and draining and urine clear Skin: General skin exam: no rashes or lesions noted Neuro: Speech: normal speech Other: Wiggles toes well. Capillary refill brisk. Distal light touch sensation intact. Dorsalis pedis pulse palpable. Extrem: Other: No edema. Psych: Mental Status: mental status grossly normal Results Labs 03/04/24 20:22 03/04/24 20:22 Labs: Abnormal lab results 03/04/24 Range/Units 20:22 WBC 11.8 H (4.5-10.0) K/mm3 RBC 4.49 L (4.6-6.20) M/mm3 Hgb 12.8 L (14.0-18.0) g/dL Hct 37.9 L (42.0-52.0) % MPV 11.3 H (7.4-10.4) fl Neut % (Auto) 83.6 H (45.5-73.1) % Lymph % (Auto) 9.2 L (18.3-44.2) % [place] # (Auto) 0.7 H (0.1-0.6) K/mm3 Abs Immat Gran (auto) 0.05 H (0.00-0.031) K/mm3 Absolute Neuts (auto) 9.8 H (1.3-6.7) K/mm3 BUN 23 H D (9-20) mg/dL Glucose 145 H (65-110) mg/dL Calcium 10.4 H (8.4-10.2) mg/dL H & H 03/04/24 Range/Units 20:22 Hgb 12.8 L (14.0-18.0) g/dL Hct 37.9 L (42.0-52.0) % Coagulation 03/04/24 Range/Units 20:22 INR 1.0 All other labs normal. Quality VTE Prophylaxis VTE prophylaxis: mechanical ordered
--- NOTE | 2024-03-05 09:58 | PM.IMPN ---
Progress Note: A&P Assessment and Plan (1) Ground-level fall: Code(s): W18.30XA - Fall on same level, unspecified, initial encounter Status: Acute Assessment and Plan: Surgeon consult. Falling precautions in place. (2) Closed intertrochanteric fracture of femur: Code(s): S72.143A - Displaced intertrochanteric fracture of unspecified femur, initial encounter for closed fracture Status: Acute Assessment and Plan: Supportive care Bed rest Orthopedic surgery consult (3) Alcoholism: Code(s): F10.20 - Alcohol dependence, uncomplicated Status: Acute Assessment and Plan: CIWA as needed (4) Cardiomyopathy: Code(s): I42.9 - Cardiomyopathy, unspecified Status: Acute Assessment and Plan: Resume Entresto (5) Atrial fibrillation with RVR: Code(s): I48.91 - Unspecified atrial fibrillation Status: Acute Assessment and Plan: Rate controlled and anticoagulated (6) Pulmonary embolism: Qualifiers: Acute cor pulmonale presence: without acute cor pulmonale Chronicity: acute Pulmonary embolism type: unspecified Qualified Code(s): I26.99 - Other pulmonary embolism without acute cor pulmonale Code(s): I26.99 - Other pulmonary embolism without acute cor pulmonale Status: Acute Assessment and Plan: Patient is on anticoagulation, will hold p.o. anticoagulation surgery is done. SubQ heparin. (7) Parkinsons disease: Code(s): G20 - Parkinson's disease Status: Acute Assessment and Plan: On no meds Plan 03/05/2024 Continue current treatment and schedule surgery. Subjective Date/time seen: 03/05/24 09:58 Interval history: Patient was seen during the morning rounds today. Patient pain is under control. No shortness of breath or chest pain. Review of Systems Review of Systems: Fall, left hip pain with movement, unable to bear weight. Exam Narrative: Laying in bed comfortably Const: General: comfortable, no acute distress, well developed, alert, awake, average body habitus and thin Nutritional Appearance: average body habitus and thin Orientation/consciousness: patient oriented x3 Other: Well-appearing HENMT: Head: normal to inspection, normocephalic and atraumatic Ears: hearing grossly normal bilaterally Face/Nose/Sinus: normal facial exam Face and sinus: normal facial exam Eyes: General: appearance normal, both eyes and all related structures Pupils: Equal, round and reactive pupils present EOM: EOMs intact bilaterally Neck: Neck: full ROM, no lymphadenopathy and no JVD Thyroid: thyroid normal Lymphatic: no lymphadenopathy noted Resp: Effort & Inspection: normal respiratory effort and able to speak in complete sentences Auscultation: clear to auscultation bilaterally Cardio: Jugular venous distension: no JVD Rate: regular rate Rhythm: regular rhythm Heart sounds: S1 normal heart sound present and S2 normal heart sound present : General: Yes deferred Skin: Rashes: no rashes Wounds: no wounds Neuro: General: patient oriented x3, CN's II-XI intact bilaterally and Unable to assess gait Cranial nerves: Yes CN's II-XII intact bilaterally and Yes Equal, round and reactive pupils present Cognition (Neuro): normal cognition Speech: normal speech Gait exam (Neuro): Unable to assess gait Motor exam (neuro): 5/5 motor strength present throughout Extrem: Other: Left leg is externally rotated and shortened Objective Data Vital Signs Vital Signs: Vital Signs - 24 hr 03/04/24 16:40 03/04/24 20:32 03/04/24 21:08 Temperature 36.3 C L Pulse Rate 77 76 68 Respiratory Rate 18 13 16 Blood Pressure 93/57 L 96/52 L 118/63 Pulse Oximetry 98 100 100 Oxygen Delivery Room Air 03/04/24 21:16 03/04/24 21:31 03/04/24 21:46 Temperature Pulse Rate 64 63 71 Respiratory Rate 16 16 14 Blood Pressure 101/64 110/65 102/64 Pulse Oximetry 100 99 96 Oxygen Delivery 03/04/24 23:09 03/04/24 23:21 03/05/24 00:00 Temperature 36.4 C Pulse Rate 76 71 80 Respiratory Rate 18 14 Blood Pressure 115/65 Pulse Oximetry 98 96 Oxygen Delivery Room Air 03/05/24 04:00 03/05/24 06:00 Temperature 37.0 C Pulse Rate 76 62 Respiratory Rate 16 Blood Pressure 105/51 L Pulse Oximetry 98 Oxygen Delivery Intake/Output Intake/Output: Intake & Output 03/02/24 03/03/24 03/04/24 03/05/24 23:59 23:59 23:59 23:59 Intake Total 1000 958.3 Balance 1000 958.3 Meds/Results Medications: Active Medications Generic Name Dose Route Start Last Admin Trade Name Freq PRN Reason Stop Dose Admin Acetaminophen 650 mg 03/04/24 21:22 03/04/24 23:47 Acetaminophen 325 Mg Tablet PO 650 mg Q4H PRN Administration Mild Pain (1-3) or Fever Hydrocodone Bitart/Acetaminophen 1 tab 03/04/24 21:22 Hydrocodone/Acetaminophen (*Crx) 5-325 Mg Tablet PO Q4H PRN Pain Rated 4-6 Atorvastatin Calcium 80 mg 03/05/24 21:00 Atorvastatin 40 Mg Tablet PO HS [facility] Carvedilol 3.125 mg 03/05/24 21:00 Carvedilol 3.125 Mg Tablet PO Q12HR [facility] Famotidine 10 mg 03/06/24 09:00 Famotidine 10 Mg Tablet PO DAILY [facility] Folic Acid 1 mg 03/06/24 09:00 Folic Acid 1 Mg Tablet PO DAILY [facility] Furosemide 10 mg 03/06/24 09:00 Furosemide 10 Mg Tablet PO QAM [facility] Hydromorphone HCl 0.5 mg 03/04/24 21:22 03/05/24 03:16 Hydromorphone Hcl Inj (*Crx) 1 Mg/Ml Syr IV PUSH 0.5 mg Q4H PRN Administration Pain Rated 7-10 Hyoscyamine 0.125 mg 03/05/24 09:54 Hyoscyamine Sulfate 0.125 Mg Tablet SUBLINGUAL QID PRN dyspepsia Lactated Ringer's 1,000 mls @ 100 mls/hr 03/04/24 21:25 03/05/24 09:22 Lr - Lactated Ringers Iv IV CONT 100 mls/hr .Q10H [facility] Administration Loperamide HCl 2 mg 03/05/24 09:54 Loperamide Hcl 2 Mg Capsule PO Q6H PRN diarrhea Multivitamins/Calcium 1 tablet 03/06/24 09:00 Therapeutic Multivitamins/Minerals Tab (*Bkc) PO DAILY [facility] Ondansetron HCl 4 mg 03/04/24 21:22 Ondansetron Inj 4 Mg/2 Ml Vial IV PUSH Q4H PRN Nausea Sacubitril/Valsartan 1 tab 03/05/24 17:00 Sacubitril/Valsartan 24-26 Mg Tablet PO BID [facility] Radiology Results: ITS Impressions Head CT 03/04/24 19:10 IMPRESSION: No acute intracranial process. Chest X-Ray 03/04/24 19:12 IMPRESSION: No acute cardiopulmonary process. Hip/Pelvis X-Ray 03/04/24 19:15 IMPRESSION: Comminuted intertrochanteric fracture of the left femur. Labs Labs: Laboratory Results - last 24 hr 03/04/24 20:22 WBC 11.8 H RBC 4.49 L Hgb 12.8 L Hct 37.9 L MCV 84.4 MCH 28.5 MCHC 33.8 RDW 12.6 Plt Count 153 MPV 11.3 H Immature Gran % (Auto) 0.4 Neut % (Auto) 83.6 H Lymph % (Auto) 9.2 L [place] % (Auto) 6.3 Eos % (Auto) 0.2 Baso % (Auto) 0.3 Lymph # (Auto) 1.08 [place] # (Auto) 0.7 H Eos # (Auto) 0.0 Baso # (Auto) 0.0 Abs Immat Gran (auto) 0.05 H Absolute Neuts (auto) 9.8 H Absolute Nucleated RBC 0.000 Nucleated RBC % 0.0 PT 13.8 INR 1.0 APTT 30.0 Sodium 138 Potassium 4.7 Chloride 105 Carbon Dioxide 27 Anion Gap 6 BUN 23 H D Creatinine 0.90 Estim Creat Clear Calc 61 Estimated GFR > 60 Glucose 145 H Calcium 10.4 H Magnesium 2.2 Total Bilirubin 0.8 AST 38 ALT 19 Alkaline Phosphatase 80 Total Protein 7.0 Albumin 3.9
[2024-03-05] MEDS: FOLIC ACID 1 MG TABLET PO (10:22)
[2024-03-05] MEDS: THERAPEUTIC MULTIVITAMINS/MINERALS TAB (*BKC) 1 TABLET PO (10:22)
[2024-03-05] MEDS: SACUBITRIL/VALSARTAN 24-26 MG TABLET 1 TAB PO ×2 (10:22→21:07)
[2024-03-05] MEDS: HEPARIN SODIUM 5,000 UNITS/ML VIAL 5000 UNITS SUB-Q ×2 (10:23→21:07)
[2024-03-05] MEDS: FUROSEMIDE 10 MG TABLET PO (10:23)
[2024-03-05] MEDS: carvediloL 3.125 MG TABLET PO ×2 (10:23→21:07)
[2024-03-05] MEDS: FAMOTIDINE 10 MG TABLET PO (10:23)
--- NOTE | 2024-03-05 14:04 | PC.NURSE ---
Addendum entered by Jodi Vaughn RN 03/05/24 15:09: 1505: Patient states he will not sign consent unless it is for a total hip replacement. Called and spoke with MD. THR is not possible due to the location of the break. Patient's also wanted to know what approach the doctor uses. MD states with a repair the is not an approach as it will be done through small incisions and with the use of x-ray. Will pass this information on to the patient and spouse. Original Note: Patient resting comfortably in bed. No pain medications needed at the time of morning assessment. Trio rounds with orthopedics. Surgery most likely Thursday. Patient aware. NPO diet held and Heart Healthy ordered per MD. Patient cooperative and compliant with medications.
[2024-03-05] MEDS: ATORVASTATIN 40 MG TABLET 80 MG PO (21:07)
[2024-03-05] MEDS: HYDROcodone/acetaminophen (*CRX) 5-325 MG TABLET 1 TAB PO (21:09)
[2024-03-06] VITALS (7 sets, daily range): BP systolic 92–110; BP diastolic 45–48; PULSE 60–99; RESP 16–18; TEMP 36.9–37.4; O2SAT 99–100
[2024-03-06] MEDS: LACTATED RINGERS 1,000 ML 100 ML IV CONT ×2 (06:36→16:31)
--- NOTE | 2024-03-06 09:19 | P.PNOP_ITS ---
Progress Note: A&P Assessment and Plan (1) Closed intertrochanteric fracture of femur: Qualifiers: Encounter type: initial encounter Fracture alignment: displaced Laterality: left Qualified Code(s): S72.142A - Displaced intertrochanteric fracture of left femur, initial encounter for closed fracture Code(s): S72.143A - Displaced intertrochanteric fracture of unspecified femur, initial encounter for closed fracture Status: Acute Assessment and Plan: Displaced and comminuted left intertrochanteric hip fracture will benefit from ORIF left hip intertrochanteric fracture, with cephalomedullary nail. (Will use the Arthrex nail) Plan for surgery tomorrow. Dr. Brenner has discussed the risks, benefits, and alternatives to surgery. I discussed this again with the patient. He has no questions. Proceed with ORIF left hip intertrochanteric fracture, with cephalomedullary nail. (Will use the Arthrex nail) Significant medical comorbidities. Uses a walker at baseline. Hold anticoagulants. NPO at midnight. Anticipate 4-6 weeks of rehabilitation need. Subjective Subjective Date/Time Seen: 03/06/24 09:19 Interval history: Resting comfortably in bed. Sleeping. Notes no pain at rest. No other complain ts. Review of Systems Review of Systems: All systems reviewed & are unremarkable except as noted in HPI and below Exam Narrative: Lower extremity shortened and externally rotated. Moderate thigh swelling. Const: General: no acute distress Eyes: General: appearance normal, both eyes and all related structures Resp: Effort & Inspection: normal respiratory effort GI: GI Palp: Yes Soft to palpation and No Guarding due to palpation present (GI) Urinary Catheter: Urinary Catheter: patent and draining and urine clear Skin: General skin exam: no rashes or lesions noted Neuro: Speech: normal speech Other: Wiggles toes well. Capillary refill brisk. Distal light touch sensation intact. Dorsalis pedis pulse palpable. Extrem: Other: No edema. Psych: Mental Status: mental status grossly normal Objective Data Vital Signs Vital Signs: Vital Signs - 24 hr 03/05/24 10:23 03/05/24 12:00 03/05/24 14:00 Temperature 98.6 F Pulse Rate 70 89 76 Respiratory Rate 16 Blood Pressure Pulse Oximetry 98 03/05/24 16:00 03/05/24 20:00 03/05/24 21:07 Temperature Pulse Rate 76 75 76 Respiratory Rate Blood Pressure Pulse Oximetry 03/05/24 22:00 03/06/24 00:00 03/06/24 04:00 Temperature 99.2 F Pulse Rate 70 88 86 Respiratory Rate 18 Blood Pressure 99/47 L Pulse Oximetry 98 03/06/24 06:00 Temperature 98.5 F Pulse Rate 70 Respiratory Rate 18 Blood Pressure 96/46 L Pulse Oximetry 100 Intake/Output Intake/Output: Intake & Output 03/03/24 03/04/24 03/05/24 03/06/24 23:59 23:59 23:59 23:59 Intake Total 1000 3438.3 400 Output Total 500 800 Balance 1000 2938.3 -400 Meds/Results Medications: Active Medications Generic Name Dose Route Start Last Admin Trade Name Freq PRN Reason Stop Dose Admin Acetaminophen 650 mg 03/04/24 21:22 03/04/24 23:47 Acetaminophen 325 Mg Tablet PO 650 mg Q4H PRN Administration Mild Pain (1-3) or Fever Hydrocodone Bitart/Acetaminophen 1 tab 03/04/24 21:22 03/05/24 21:09 Hydrocodone/Acetaminophen (*Crx) 5-325 Mg Tablet PO 1 tab Q4H PRN Administration Pain Rated 4-6 Atorvastatin Calcium 80 mg 03/05/24 21:00 03/05/24 21:07 Atorvastatin 40 Mg Tablet PO 80 mg HS YARA Administration Carvedilol 3.125 mg 03/05/24 09:00 03/05/24 21:07 Carvedilol 3.125 Mg Tablet PO 3.125 mg Q12HR YARA Administration Famotidine 10 mg 03/05/24 09:00 03/05/24 10:23 Famotidine 10 Mg Tablet PO 10 mg DAILY YARA Administration Folic Acid 1 mg 03/05/24 09:00 03/05/24 10:22 Folic Acid 1 Mg Tablet PO 1 mg DAILY YARA Administration Furosemide 10 mg 03/05/24 09:00 03/05/24 10:23 Furosemide 10 Mg Tablet PO 10 mg QAM YARA Administration Heparin Sodium (Porcine) 5,000 units 03/05/24 09:00 03/05/24 21:07 Heparin Sodium 5,000 Units/Ml Vial SUB-Q 5,000 units Q12HR YARA Administration Hydromorphone HCl 0.5 mg 03/04/24 21:22 03/05/24 14:12 Hydromorphone Hcl Inj (*Crx) 1 Mg/Ml Syr IV PUSH 0.5 mg Q4H PRN Administration Pain Rated 7-10 Hyoscyamine 0.125 mg 03/05/24 09:54 Hyoscyamine Sulfate 0.125 Mg Tablet SUBLINGUAL QID PRN dyspepsia Lactated Ringer's 1,000 mls @ 100 mls/hr 03/04/24 21:25 03/06/24 06:37 Lr - Lactated Ringers Iv IV CONT Not Given .Q10H YARA Loperamide HCl 2 mg 03/05/24 09:54 Loperamide Hcl 2 Mg Capsule PO Q6H PRN diarrhea Multivitamins/Calcium 1 tablet 03/05/24 09:00 03/05/24 10:22 Therapeutic Multivitamins/Minerals Tab (*Bkc) PO 1 tablet DAILY YARA Administration Ondansetron HCl 4 mg 03/04/24 21:22 Ondansetron Inj 4 Mg/2 Ml Vial IV PUSH Q4H PRN Nausea Sacubitril/Valsartan 1 tab 03/05/24 09:00 03/05/24 21:07 Sacubitril/Valsartan 24-26 Mg Tablet PO 1 tab Q12HR YARA Administration Radiology Results: ITS Impressions Head CT 03/04/24 19:10 IMPRESSION: No acute intracranial process. Chest X-Ray 03/04/24 19:12 IMPRESSION: No acute cardiopulmonary process. Hip/Pelvis X-Ray 03/04/24 19:15 IMPRESSION: Comminuted intertrochanteric fracture of the left femur. Labs Labs: Laboratory Results - last 24 hr 03/05/24 10:50 Blood Type A Positive Antibody Screen Negative
--- NOTE | 2024-03-06 10:09 | PM.IMPN ---
Progress Note: A&P Assessment and Plan (1) Ground-level fall: Code(s): W18.30XA - Fall on same level, unspecified, initial encounter Status: Acute Assessment and Plan: Surgeon consult. Falling precautions in place. (2) Closed intertrochanteric fracture of femur: Qualifiers: Encounter type: initial encounter Fracture alignment: displaced Laterality: left Qualified Code(s): S72.142A - Displaced intertrochanteric fracture of left femur, initial encounter for closed fracture Code(s): S72.143A - Displaced intertrochanteric fracture of unspecified femur, initial encounter for closed fracture Status: Acute Assessment and Plan: Supportive care Bed rest Orthopedic surgery consult Surgery scheduled for morning. (3) Alcoholism: Code(s): F10.20 - Alcohol dependence, uncomplicated Status: Acute Assessment and Plan: CIWA as needed (4) Cardiomyopathy: Code(s): I42.9 - Cardiomyopathy, unspecified Status: Acute Assessment and Plan: Resume Entresto (5) Atrial fibrillation with RVR: Code(s): I48.91 - Unspecified atrial fibrillation Status: Acute Assessment and Plan: Rate controlled and anticoagulated (6) Pulmonary embolism: Qualifiers: Acute cor pulmonale presence: without acute cor pulmonale Chronicity: acute Pulmonary embolism type: unspecified Qualified Code(s): I26.99 - Other pulmonary embolism without acute cor pulmonale Code(s): I26.99 - Other pulmonary embolism without acute cor pulmonale Status: Acute Assessment and Plan: Patient is on anticoagulation, will hold p.o. anticoagulation surgery is done. SubQ heparin. (7) Parkinsons disease: Code(s): G20 - Parkinson's disease Status: Acute Assessment and Plan: On no meds Plan 03/06/2024 Continue current treatment and surgery scheduled in am.. Subjective Date/time seen: 03/06/24 10:09 Interval history: Patient was seen during the morning rounds today. Resting comfortably in bed. no pain at rest. No other complaints. Review of Systems Review of Systems: Fall, left hip pain with movement, unable to bear weight. Exam Narrative: Laying in bed comfortably Const: General: comfortable, no acute distress, well developed, alert, awake, average body habitus and thin Nutritional Appearance: average body habitus and thin Orientation/consciousness: patient oriented x3 Other: Well-appearing HENMT: Head: normal to inspection, normocephalic and atraumatic Ears: hearing grossly normal bilaterally Face/Nose/Sinus: normal facial exam Face and sinus: normal facial exam Eyes: General: appearance normal, both eyes and all related structures Pupils: Equal, round and reactive pupils present EOM: EOMs intact bilaterally Neck: Neck: full ROM, no lymphadenopathy and no JVD Thyroid: thyroid normal Lymphatic: no lymphadenopathy noted Resp: Effort & Inspection: normal respiratory effort and able to speak in complete sentences Auscultation: clear to auscultation bilaterally Cardio: Jugular venous distension: no JVD Rate: regular rate Rhythm: regular rhythm Heart sounds: S1 normal heart sound present and S2 normal heart sound present : General: Yes deferred Skin: Rashes: no rashes Wounds: no wounds Neuro: General: patient oriented x3, CN's II-XI intact bilaterally and Unable to assess gait Cranial nerves: Yes CN's II-XII intact bilaterally and Yes Equal, round and reactive pupils present Cognition (Neuro): normal cognition Speech: normal speech Gait exam (Neuro): Unable to assess gait Motor exam (neuro): 5/5 motor strength present throughout Extrem: Other: Left leg is externally rotated and shortened Objective Data Vital Signs Vital Signs: Vital Signs - 24 hr 03/05/24 10:23 03/05/24 12:00 03/05/24 14:00 Temperature 37.0 C Pulse Rate 70 89 76 Respiratory Rate 16 Blood Pressure Pulse Oximetry 98 03/05/24 16:00 03/05/24 20:00 03/05/24 21:07 Temperature Pulse Rate 76 75 76 Respiratory Rate Blood Pressure Pulse Oximetry 03/05/24 22:00 03/06/24 00:00 03/06/24 04:00 Temperature 37.3 C Pulse Rate 70 88 86 Respiratory Rate 18 Blood Pressure 99/47 L Pulse Oximetry 98 03/06/24 06:00 Temperature 36.9 C Pulse Rate 70 Respiratory Rate 18 Blood Pressure 96/46 L Pulse Oximetry 100 Intake/Output Intake/Output: Intake & Output 03/03/24 03/04/24 03/05/24 03/06/24 23:59 23:59 23:59 23:59 Intake Total 1000 3438.3 400 Output Total 500 800 Balance 1000 2938.3 -400 Meds/Results Medications: Active Medications Generic Name Dose Route Start Last Admin Trade Name Freq PRN Reason Stop Dose Admin Acetaminophen 650 mg 03/04/24 21:22 03/04/24 23:47 Acetaminophen 325 Mg Tablet PO 650 mg Q4H PRN Administration Mild Pain (1-3) or Fever Hydrocodone Bitart/Acetaminophen 1 tab 03/04/24 21:22 03/05/24 21:09 Hydrocodone/Acetaminophen (*Crx) 5-325 Mg Tablet PO 1 tab Q4H PRN Administration Pain Rated 4-6 Atorvastatin Calcium 80 mg 03/05/24 21:00 03/05/24 21:07 Atorvastatin 40 Mg Tablet PO 80 mg HS YARA Administration Carvedilol 3.125 mg 03/05/24 09:00 03/05/24 21:07 Carvedilol 3.125 Mg Tablet PO 3.125 mg Q12HR YARA Administration Famotidine 10 mg 03/05/24 09:00 03/05/24 10:23 Famotidine 10 Mg Tablet PO 10 mg DAILY YARA Administration Folic Acid 1 mg 03/05/24 09:00 03/05/24 10:22 Folic Acid 1 Mg Tablet PO 1 mg DAILY YARA Administration Furosemide 10 mg 03/05/24 09:00 03/05/24 10:23 Furosemide 10 Mg Tablet PO 10 mg QAM YARA Administration Heparin Sodium (Porcine) 5,000 units 03/05/24 09:00 03/05/24 21:07 Heparin Sodium 5,000 Units/Ml Vial SUB-Q 5,000 units Q12HR YARA Administration Hydromorphone HCl 0.5 mg 03/04/24 21:22 03/05/24 14:12 Hydromorphone Hcl Inj (*Crx) 1 Mg/Ml Syr IV PUSH 0.5 mg Q4H PRN Administration Pain Rated 7-10 Hyoscyamine 0.125 mg 03/05/24 09:54 Hyoscyamine Sulfate 0.125 Mg Tablet SUBLINGUAL QID PRN dyspepsia Lactated Ringer's 1,000 mls @ 100 mls/hr 03/04/24 21:25 03/06/24 06:37 Lr - Lactated Ringers Iv IV CONT Not Given .Q10H YARA Loperamide HCl 2 mg 03/05/24 09:54 Loperamide Hcl 2 Mg Capsule PO Q6H PRN diarrhea Multivitamins/Calcium 1 tablet 03/05/24 09:00 03/05/24 10:22 Therapeutic Multivitamins/Minerals Tab (*Bkc) PO 1 tablet DAILY YARA Administration Ondansetron HCl 4 mg 03/04/24 21:22 Ondansetron Inj 4 Mg/2 Ml Vial IV PUSH Q4H PRN Nausea Sacubitril/Valsartan 1 tab 03/05/24 09:00 03/05/24 21:07 Sacubitril/Valsartan 24-26 Mg Tablet PO 1 tab Q12HR YARA Administration Radiology Results: ITS Impressions Head CT 03/04/24 19:10 IMPRESSION: No acute intracranial process. Chest X-Ray 03/04/24 19:12 IMPRESSION: No acute cardiopulmonary process. Hip/Pelvis X-Ray 03/04/24 19:15 IMPRESSION: Comminuted intertrochanteric fracture of the left femur. Labs Labs: Laboratory Results - last 24 hr 03/05/24 10:50 Blood Type A Positive Antibody Screen Negative Quality VTE Prophylaxis VTE prophylaxis: mechanical ordered
[2024-03-06] MEDS: THERAPEUTIC MULTIVITAMINS/MINERALS TAB (*BKC) 1 TABLET PO (10:28)
[2024-03-06] MEDS: HYDROcodone/acetaminophen (*CRX) 5-325 MG TABLET 1 TAB PO ×2 (10:28→20:48)
[2024-03-06] MEDS: FAMOTIDINE 10 MG TABLET PO (10:28)
[2024-03-06] MEDS: HEPARIN SODIUM 5,000 UNITS/ML VIAL 5000 UNITS SUB-Q ×2 (10:29→20:47)
[2024-03-06] MEDS: FOLIC ACID 1 MG TABLET PO (10:29)
[2024-03-06] MEDS: SODIUM CHLORIDE 0.9% IV 500 ML IV CONT (16:31)
[2024-03-06] MEDS: ATORVASTATIN 40 MG TABLET 80 MG PO (20:47)
[2024-03-06] MEDS: SACUBITRIL/VALSARTAN 24-26 MG TABLET 1 TAB PO (20:48)
[2024-03-07] VITALS (14 sets, daily range): BP systolic 88–119; BP diastolic 44–68; PULSE 40–91; RESP 12–18; TEMP 36.5–37.3; O2SAT 97–100
[2024-03-07] MEDS: HYDROcodone/acetaminophen (*CRX) 5-325 MG TABLET 1 TAB PO (06:02)
[2024-03-07] MEDS: LACTATED RINGERS 1,000 ML 100 ML IV CONT (06:02)
[2024-03-07 06:37] LABS: Hematocrit 22.5 % (42.0-52.0); Hemoglobin 7.4 g/dL (14.0-18.0); Immature Platelet Fraction Pct 4.6 % (0.9-11.2); Mean Corpuscular HGB Conc 32.9 g/dl (32-36); Mean Corpuscular Hemoglobin 28.7 pg (26-34); Mean Corpuscular Volume 87.2 fl (80-100); Mean Platelet Volume 12.1 fl (7.4-10.4); Platelet Count Result 76 k/mm3 (150-375); Red Blood Count 2.58 M/mm3 (4.6-6.20); Red Cell Distribution Width 12.5 % (11.5-14.5); White Blood Count 5.9 K/mm3 (4.5-10.0)
[2024-03-07 06:46] LABS: Alanine Aminotransferase 15 U/L (6-50); Albumin Level 2.6 g/dL (3.5-5.1); Alkaline Phosphatase 53 U/L (38-126); Anion Gap 2 mmol/L (4-12); Aspartate Amino Transferase 41 U/L (17-59); Bilirubin,Total 0.7 mg/dL (0.2-1.3); Blood Urea Nitrogen 18 mg/dL (9-20); Carbon Dioxide 24 mmol/L (22-30); Chloride 111 mmol/L (98-107); Estimated CRCL calculation 92 ml/min; Estimated Glomerular Filt Rate > 60; Glucose 129 mg/dL (65-110); Potassium 3.6 mmol/L (3.4-5.0); Sodium 137 mmol/L (137-145)
--- NOTE | 2024-03-07 08:05 | PM.IMPN ---
Progress Note: A&P Assessment and Plan (1) Ground-level fall: Code(s): W18.30XA - Fall on same level, unspecified, initial encounter Status: Acute Assessment and Plan: 03/07/24: - Orthopedics consulting, plan for orif later today. 03/06/24 Surgeon consult. Falling precautions in place. (2) Closed intertrochanteric fracture of femur: Qualifiers: Encounter type: initial encounter Fracture alignment: displaced Laterality: left Qualified Code(s): S72.142A - Displaced intertrochanteric fracture of left femur, initial encounter for closed fracture Code(s): S72.143A - Displaced intertrochanteric fracture of unspecified femur, initial encounter for closed fracture Status: Acute Assessment and Plan: 03/07/24: - Ortho managing, expect 4-6 weeks rehab likely. Poor baseline mobility. 03/06/24 Supportive care Bed rest Orthopedic surgery consult Surgery scheduled for morning. (3) Alcoholism: Code(s): F10.20 - Alcohol dependence, uncomplicated Status: Acute Assessment and Plan: 03/07/24: - CIWA, stable currently. CIWA as needed (4) Cardiomyopathy: Code(s): I42.9 - Cardiomyopathy, unspecified Status: Acute Assessment and Plan: 03/07/24: - Cont. home medications, entresto. Stable bp. 03/06/24 Resume Entresto (5) Atrial fibrillation with RVR: Code(s): I48.91 - Unspecified atrial fibrillation Status: Acute Assessment and Plan: 03/07/24: - Stable rate. - On carvedilol to cont. - Resume anticoagulation once able. 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 - Resume anticoag once appropriate postoperatively. 03/06/24: Patient is on anticoagulation, will hold p.o. anticoagulation surgery is done. SubQ heparin. (7) Parkinsons disease: Code(s): G20 - Parkinson's disease Status: Acute Assessment and Plan: On no meds (8) Thrombocytopenia: Code(s): D69.6 - Thrombocytopenia, unspecified Status: Acute Assessment and Plan: 03/07/24: - Chart history of similar in the past, question if secondary to etoh vs some dilutional effect if currently better hydrating than routine home care. - Hold heparin if plt <50k. (9) Anemia: Code(s): D64.9 - Anemia, unspecified Status: Acute Assessment and Plan: 03/07/24: - Significant drop over the last 48-72 hours. No significant chart history of similar. - Check ferritin, iron/tibc/transferrin, fobt. - Transfuse two units now preoperatively. - Chest abd pelv CT. - Repeat labs this afternoon. Trend. Plan 03/07/24: - Orthopedics managing for fracture with plan for ORIF. - Workup anemia. 03/06/2024 Continue current treatment and surgery scheduled in am.. Time Spent With Patient Time with patient: Greater than 35 minutes Subjective Date/time seen: 03/07/24 08:05 Interval history: Eren states he is having some abdominal bloating/fullness today. Pain in left hip is manageable at rest. Review of Systems Review of Systems: All systems reviewed & are unremarkable except as noted in HPI and below Exam Narrative: GENERAL APPEARANCE: Appears to be in no acute distress. HEAD: normocephalic atraumatic EYES: PERRL, EOMI. Vision grossly intact. ENT: Hearing grossly intact, no nasal discharge NECK: Neck supple, trachea midline. CARDIAC: Normal S1/S2. Rhythm is regular. No murmurs, rubs, or gallops. No cyanosis or pallor. Extremities are warm and well perfused. LUNGS: Clear to auscultation without rales, rhonchi, wheezing or diminished breath sounds. Respirations even and unlabored. ABDOMEN: BS positive x 4 quadrants. Soft, nondistended, nontender. No guarding or rebound. : Scrotum with bruising, no significant edema. MSK: Distal nv sensation intact blle. Pain to palpation of left hip. PERIPHERAL VASCULAR: Peripheral pulses palpable. Normal perfusion, cap refill <2 seconds. No edema. NEURO: Follows commands. No focal deficits. SKIN: [place] without lesions or eruptions. PSYCH: Stable, no paranoia or delusional thinking. Objective Data Vital Signs Vital Signs: Vital Signs - 24 hr 03/06/24 12:00 03/06/24 14:00 03/06/24 21:53 Temperature 99 F 99.4 F Pulse Rate 78 89 60 Respiratory Rate 16 16 Blood Pressure 92/48 L 110/45 L Pulse Oximetry 99 99 03/07/24 05:41 Temperature 97.9 F Pulse Rate 48 L Respiratory Rate 16 Blood Pressure 100/45 L Pulse Oximetry 99 Intake/Output Intake/Output: Intake & Output 03/04/24 03/05/24 03/06/24 03/07/24 23:59 23:59 23:59 23:59 Intake Total 1000 3438.3 2828.7 1000 Output Total 500 1200 650 Balance 1000 2938.3 1628.7 350 Meds/Results Medications: Active Medications Generic Name Dose Route Start Last Admin Trade Name Freq PRN Reason Stop Dose Admin Acetaminophen 650 mg 03/04/24 21:22 03/04/24 23:47 Acetaminophen 325 Mg Tablet PO 650 mg Q4H PRN Administration Mild Pain (1-3) or Fever Hydrocodone Bitart/Acetaminophen 1 tab 03/04/24 21:22 03/07/24 06:02 Hydrocodone/Acetaminophen (*Crx) 5-325 Mg Tablet PO 1 tab Q4H PRN Administration Pain Rated 4-6 Atorvastatin Calcium 80 mg 03/05/24 21:00 03/06/24 20:47 Atorvastatin 40 Mg Tablet PO 80 mg HS YARA Administration Carvedilol 3.125 mg 03/05/24 09:00 03/06/24 10:29 Carvedilol 3.125 Mg Tablet PO Not Given Q12HR YARA Famotidine 10 mg 03/05/24 09:00 03/06/24 10:28 Famotidine 10 Mg Tablet PO 10 mg DAILY YARA Administration Folic Acid 1 mg 03/05/24 09:00 03/06/24 10:29 Folic Acid 1 Mg Tablet PO 1 mg DAILY YARA Administration Furosemide 10 mg 03/05/24 09:00 03/06/24 10:22 Furosemide 10 Mg Tablet PO Not Given QAM YARA Heparin Sodium (Porcine) 5,000 units 03/05/24 09:00 03/06/24 20:47 Heparin Sodium 5,000 Units/Ml Vial SUB-Q 5,000 units Q12HR YARA Administration Hydromorphone HCl 0.5 mg 03/04/24 21:22 03/05/24 14:12 Hydromorphone Hcl Inj (*Crx) 1 Mg/Ml Syr IV PUSH 0.5 mg Q4H PRN Administration Pain Rated 7-10 Hyoscyamine 0.125 mg 03/05/24 09:54 Hyoscyamine Sulfate 0.125 Mg Tablet SUBLINGUAL QID PRN dyspepsia Lactated Ringer's 1,000 mls @ 100 mls/hr 03/04/24 21:25 03/07/24 06:02 Lr - Lactated Ringers Iv IV CONT 100 mls/hr .Q10H YARA Administration Ceftriaxone Sodium 1 gm in 50 mls @ 100 mls/hr 03/06/24 16:00 03/06/24 17:00 Rocephin 1 Gm/Ns 50 Ml IVPB Infused Q24H YARA Infusion Loperamide HCl 2 mg 03/05/24 09:54 Loperamide Hcl 2 Mg Capsule PO Q6H PRN diarrhea Multivitamins/Calcium 1 tablet 03/05/24 09:00 03/06/24 10:28 Therapeutic Multivitamins/Minerals Tab (*Bkc) PO 1 tablet DAILY YARA Administration Ondansetron HCl 4 mg 03/04/24 21:22 Ondansetron Inj 4 Mg/2 Ml Vial IV PUSH Q4H PRN Nausea Sacubitril/Valsartan 1 tab 03/05/24 09:00 03/06/24 20:48 Sacubitril/Valsartan 24-26 Mg Tablet PO 1 tab Q12HR YARA Administration Radiology Results: ITS Impressions Head CT 03/04/24 19:10 IMPRESSION: No acute intracranial process. Chest X-Ray 03/04/24 19:12 IMPRESSION: No acute cardiopulmonary process. Hip/Pelvis X-Ray 03/04/24 19:15 IMPRESSION: Comminuted intertrochanteric fracture of the left femur. Labs Labs: Laboratory Results - last 24 hr 03/07/24 06:19 WBC 5.9 RBC 2.58 L Hgb 7.4 L D Hct 22.5 L MCV 87.2 MCH 28.7 MCHC 32.9 RDW 12.5 Plt Count 76 L D MPV 12.1 H % Immature Plt Fraction 4.6 Sodium 137 Potassium 3.6 Chloride 111 H Carbon Dioxide 24 Anion Gap 2 L BUN 18 Creatinine 0.58 L Estim Creat Clear Calc 92 Estimated GFR > 60 Glucose 129 H Calcium 8.0 L Total Bilirubin 0.7 AST 41 ALT 15 Alkaline Phosphatase 53 Total Protein 5.0 L Albumin 2.6 L Quality VTE Prophylaxis VTE prophylaxis: mechanical ordered If No VTE Prophylaxis Answer both mechanical and pharmacologic: Reason no pharmacologic proph: medical contraindication Hospitalist [facility] Advance Care Plan I have confirmed that the patient's Advanced Care Plan is present, code status is documented, or surrogate decision maker is listed in patient medical record.: Yes Medication Reconciliation I have utilized all available resources to obtain, update and review the patients current medications (includes all prescriptions, OTC, herbals, cannabis, and nutritional supplements).: Yes
[2024-03-07 12:01] LABS: Hematocrit 27.5 % (42.0-52.0); Hemoglobin 8.8 g/dL (14.0-18.0)
[2024-03-07 12:16] LABS: Iron 24 ug/dL (49-181)
[2024-03-07 12:24] LABS: Transferrin 149 mg/dL (206-381)
[2024-03-07 12:27] LABS: Percent Iron Saturation 11 % (20-50)
[2024-03-07] MEDS: HYDROmorphone HCL INJ (*CRX) 1 MG/ML SYR 0.5 MG IV PUSH (12:53)
[2024-03-07 13:26] LABS: Folic Acid > 20.0 ng/mL (2.76->20)
[2024-03-07] MEDS: LACTATED RINGERS 1,000 ML 30 ML IV CONT (15:40)
--- NOTE | 2024-03-07 15:45 | WPDHPUPDATE1 ---
History and Physical Update Update Date/Time: 03/07/24 15:45 History and Physical has been reviewed, including an updated exam of the patient. There are NO changes in the patient's condition. Risks, benefits, and alternatives have been discussed and questions answered. Patient agrees to proceed with procedure.
--- NOTE | 2024-03-07 16:51 | P.PNOP_ITS ---
Progress Note: A&P Assessment and Plan (1) Closed intertrochanteric fracture of femur: Qualifiers: Encounter type: initial encounter Fracture alignment: displaced Laterality: left Qualified Code(s): S72.142A - Displaced intertrochanteric fracture of left femur, initial encounter for closed fracture Code(s): S72.143A - Displaced intertrochanteric fracture of unspecified femur, initial encounter for closed fracture Status: Acute Plan Surgery delayed after review of patient condition with the anesthesiologist. Heart rate and EKG changes. Cardiology consult requested by Anesthesiology. 2 units blood given today and platelets ordered. Possible surgery tomorrow. Subjective Subjective Date/Time Seen: 03/07/24 16:51 Objective Data Vital Signs Vital Signs: Vital Signs - 24 hr 03/06/24 21:53 03/07/24 05:41 03/07/24 08:00 Temperature 37.4 C 36.6 C Pulse Rate 60 48 L Respiratory Rate 16 16 Blood Pressure 110/45 L 100/45 L Pulse Oximetry 99 99 Oxygen Delivery Room Air 03/07/24 09:35 03/07/24 09:58 03/07/24 10:58 Temperature 36.6 C 36.6 C 36.6 C Pulse Rate 75 78 75 Respiratory Rate 12 14 16 Blood Pressure 88/68 L 109/50 L 101/49 L Pulse Oximetry 100 100 100 Oxygen Delivery 03/07/24 13:32 03/07/24 13:47 03/07/24 13:47 Temperature 36.6 C 36.6 C 36.6 C Pulse Rate 65 72 72 Respiratory Rate 16 16 16 Blood Pressure 109/57 L 110/55 L 110/55 L Pulse Oximetry 100 99 99 Oxygen Delivery 03/07/24 14:00 03/07/24 14:47 03/07/24 15:00 Temperature 36.5 C 36.8 C 36.8 C Pulse Rate 56 L 75 75 Respiratory Rate 14 16 16 Blood Pressure 108/44 L 111/54 L 111/54 L Pulse Oximetry 99 100 100 Oxygen Delivery 03/07/24 15:09 03/07/24 15:40 Temperature 36.6 C 36.8 C Pulse Rate 75 40 L Respiratory Rate 16 14 Blood Pressure 111/54 L 119/52 L Pulse Oximetry 100 100 Oxygen Delivery Room Air Intake/Output Intake/Output: Intake & Output 03/04/24 03/05/24 03/06/24/13/25 23:59 23:59 23:59 23:59 Intake Total 1000 3438.3 2828.7 1750 Output Total 500 1200 650 Balance 1000 2938.3 1628.7 1100 Meds/Results Medications: Active Medications Generic Name Dose Route Start Last Admin Trade Name Freq PRN Reason Stop Dose Admin Acetaminophen 650 mg 03/04/24 21:22 03/04/24 23:47 Acetaminophen 325 Mg Tablet PO 650 mg Q4H PRN Administration Mild Pain (1-3) or Fever Hydrocodone Bitart/Acetaminophen 1 tab 03/04/24 21:22 03/07/24 06:02 Hydrocodone/Acetaminophen (*Crx) 5-325 Mg Tablet PO 1 tab Q4H PRN Administration Pain Rated 4-6 Atorvastatin Calcium 80 mg 03/05/24 21:00 03/06/24 20:47 Atorvastatin 40 Mg Tablet PO 80 mg HS YARA Administration Carvedilol 3.125 mg 03/05/24 09:00 03/06/24 10:29 Carvedilol 3.125 Mg Tablet PO Not Given Q12HR YARA Famotidine 10 mg 03/05/24 09:00 03/07/24 12:57 Famotidine 10 Mg Tablet PO Not Given DAILY YARA Folic Acid 1 mg 03/05/24 09:00 03/07/24 12:57 Folic Acid 1 Mg Tablet PO Not Given DAILY YARA Furosemide 10 mg 03/05/24 09:00 03/06/24 10:22 Furosemide 10 Mg Tablet PO Not Given QAM YARA Heparin Sodium (Porcine) 5,000 units 03/05/24 09:00 03/07/24 12:57 Heparin Sodium 5,000 Units/Ml Vial SUB-Q Not Given Q12HR YARA Hydromorphone HCl 0.5 mg 03/04/24 21:22 03/07/24 12:53 Hydromorphone Hcl Inj (*Crx) 1 Mg/Ml Syr IV PUSH 0.5 mg Q4H PRN Administration Pain Rated 7-10 Hyoscyamine 0.125 mg 03/05/24 09:54 Hyoscyamine Sulfate 0.125 Mg Tablet SUBLINGUAL QID PRN dyspepsia Lactated Ringer's 1,000 mls @ 100 mls/hr 03/04/24 21:25 03/07/24 06:02 Lr - Lactated Ringers Iv IV CONT 100 mls/hr .Q10H YARA Administration Ceftriaxone Sodium 1 gm in 50 mls @ 100 mls/hr 03/06/24 16:00 03/07/24 16:19 Rocephin 1 Gm/Ns 50 Ml IVPB Infused Q24H YARA Infusion Lactated Ringer's 1,000 mls @ 30 mls/hr 03/07/24 08:40 03/07/24 15:40 Lr - Lactated Ringers Iv IV CONT 30 mls/hr .Q24H YARA Administration Sodium Chloride 250 mls @ 30 mls/hr 03/07/24 08:50 03/07/24 12:57 Normal Saline Iv IV CONT 03/07/24 17:09 Not Given .Q8H20M STA Sodium Chloride 250 mls @ 30 mls/hr 03/07/24 16:08 Normal Saline Iv IV CONT 03/08/24 00:27 .Q8H20M STA Loperamide HCl 2 mg 03/05/24 09:54 Loperamide Hcl 2 Mg Capsule PO Q6H PRN diarrhea Multivitamins/Calcium 1 tablet 03/05/24 09:00 03/07/24 12:57 Therapeutic Multivitamins/Minerals Tab (*Bkc) PO Not Given DAILY [facility] Ondansetron HCl 4 mg 03/04/24 21:22 Ondansetron Inj 4 Mg/2 Ml Vial IV PUSH Q4H PRN Nausea Sacubitril/Valsartan 1 tab 03/05/24 09:00 03/07/24 12:56 Sacubitril/Valsartan 24-26 Mg Tablet PO Not Given Q12HR [facility] Radiology Results: ITS Impressions Head CT 03/04/24 19:10 IMPRESSION: No acute intracranial process. Chest X-Ray 03/04/24 19:12 IMPRESSION: No acute cardiopulmonary process. Hip/Pelvis X-Ray 03/04/24 19:15 IMPRESSION: Comminuted intertrochanteric fracture of the left femur. Chest/Abdomen/Pelvis CT 03/07/24 13:10 IMPRESSION: 1. Comminuted intertrochanteric fracture of proximal left femur. 2. 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 3. Distended rectosigmoid, likely adynamic ileus. 4. 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 Labs Labs: Laboratory Results - last 24 hr 03/05/24 03/07/24 03/07/24 10:50 06:19 11:54 WBC 5.9 RBC 2.58 L Hgb 7.4 L D 8.8 L Hct 22.5 L 27.5 L MCV 87.2 MCH 28.7 MCHC 32.9 RDW 12.5 Plt Count 76 L D MPV 12.1 H % Immature Plt Fraction 4.6 Sodium 137 Potassium 3.6 Chloride 111 H Carbon Dioxide 24 Anion Gap 2 L BUN 18 Creatinine 0.58 L Estim Creat Clear Calc 92 Estimated GFR > 60 Glucose 129 H Calcium 8.0 L Iron 24 L TIBC 210 L % Saturation 11 L Transferrin 149 L Ferritin 46.50 Total Bilirubin 0.7 AST 41 ALT 15 Alkaline Phosphatase 53 Total Protein 5.0 L Albumin 2.6 L Vitamin B12 731.0 Folate > 20.0 H Blood Type A Positive Antibody Screen Negative Crossmatch See Detail
--- NOTE | 2024-03-07 17:07 | SUR.PREOP ---
1637 PATIENT TRANSFERED BACK TO ROOM 314-2 ON TELEMETRY. REPORT GIVEN TO SKIP TRAORE RN.
[2024-03-07 17:17] LABS: Hematocrit 30.2 % (42.0-52.0)
[2024-03-07 17:26] LABS: Magnesium 2.4 mg/dL (1.6-2.3)
[2024-03-07] MEDS: SACUBITRIL/VALSARTAN 24-26 MG TABLET 1 TAB PO (20:28)
[2024-03-07] MEDS: ATORVASTATIN 40 MG TABLET 80 MG PO (20:28)
[2024-03-07 21:33] LABS: Hematocrit 31.2 % (42.0-52.0); Hemoglobin 10.2 g/dL (14.0-18.0)
[2024-03-08] VITALS (11 sets, daily range): BP systolic 97–122; BP diastolic 46–92; PULSE 60–98; RESP 13–20; TEMP 36.1–37.7; O2SAT 95–100
[2024-03-08] MEDS: LACTATED RINGERS 1,000 ML 100 ML IV CONT (00:58)
[2024-03-08 07:07] LABS: Hematocrit 31.3 % (42.0-52.0); Hemoglobin 10.1 g/dL (14.0-18.0); Mean Corpuscular HGB Conc 32.3 g/dl (32-36); Mean Corpuscular Hemoglobin 28.4 pg (26-34); Mean Corpuscular Volume 87.9 fl (80-100); Mean Platelet Volume 12.4 fl (7.4-10.4); Platelet Count Result 102 k/mm3 (150-375); Red Blood Count 3.56 M/mm3 (4.6-6.20); Red Cell Distribution Width 13.4 % (11.5-14.5); White Blood Count 7.3 K/mm3 (4.5-10.0)
[2024-03-08 07:35] LABS: Magnesium 2.3 mg/dL (1.6-2.3)
[2024-03-08 07:39] LABS: Alanine Aminotransferase 17 U/L (6-50); Albumin Level 2.8 g/dL (3.5-5.1); Alkaline Phosphatase 55 U/L (38-126); Anion Gap 4 mmol/L (4-12); Aspartate Amino Transferase 46 U/L (17-59); Bilirubin,Total 1.1 mg/dL (0.2-1.3); Blood Urea Nitrogen 16 mg/dL (9-20); Calcium 7.8 mg/dL (8.4-10.2); Carbon Dioxide 26 mmol/L (22-30); Chloride 110 mmol/L (98-107); Estimated CRCL calculation 78 ml/min; Estimated Glomerular Filt Rate > 60; Glucose 123 mg/dL (65-110); Potassium 3.4 mmol/L (3.4-5.0); Sodium 140 mmol/L (137-145)
--- NOTE | 2024-03-08 11:38 | P.PNIM_ITS ---
Progress Note: A&P Assessment and Plan (1) Ground-level fall: Code(s): W18.30XA - Fall on same level, unspecified, initial encounter Status: Acute (2) Closed intertrochanteric fracture of femur: Qualifiers: Encounter type: initial encounter Fracture alignment: displaced Laterality: left Qualified Code(s): S72.142A - Displaced intertrochanteric fracture of left femur, initial encounter for closed fracture Code(s): S72.143A - Displaced intertrochanteric fracture of unspecified femur, initial encounter for closed fracture Status: Acute (3) Alcoholism: Code(s): F10.20 - Alcohol dependence, uncomplicated Status: Acute Assessment and Plan: Delete (4) Cardiomyopathy: Code(s): I42.9 - Cardiomyopathy, unspecified Status: Acute (5) Atrial fibrillation with RVR: Code(s): I48.91 - Unspecified atrial fibrillation Status: Acute (6) Pulmonary embolism: Qualifiers: Acute cor pulmonale presence: without acute cor pulmonale Chronicity: acute Pulmonary embolism type: unspecified Qualified Code(s): I26.99 - Other pulmonary embolism without acute cor pulmonale Code(s): I26.99 - Other pulmonary embolism without acute cor pulmonale Status: Acute (7) Parkinsons disease: Code(s): G20 - Parkinson's disease Status: Acute (8) Thrombocytopenia: Code(s): D69.6 - Thrombocytopenia, unspecified Status: Acute (9) Anemia: Code(s): D64.9 - Anemia, unspecified Status: Acute Plan This is an 83-year-old male presented to the ED/12/17 after a ground level fall mechanical while using his walker. Patient was unable to get back up. No loss of consciousness. Hip pain. Workup revealed comminuted intertrochanteric fracture of left femur. Patient was admitted for further treatment. CT head was negative. Chest x-ray with no acute cardiopulmonary process. Orthopedic was consulted. Planned left hip cephalomedullary nailing. Anemia been down to 7.4 received 2 unit of transfusion. Hemoglobin of 10 today. No signs of bleeding. Could be hemodilution now as he has received 10 L +since admission. CTA chest abdomen pelvis with no bleeding. Findings of adynamic ileus Adynamic ileus likely relating to be bloating sensation. Having bowel movement now. Continue to monitor History of alcoholism has not drank since 5 years. History of cardiomyopathy on Entresto AFib chronic rate controlled anticoagulated which is on hold for the surgery Parkinson's disease History of DVT/PE on chronic anticoagulation Bradyarrhythmia/complete heart block Status post pacemaker implantation 2020 History of aortic valve replacement with bioprosthetic valve. Congestive heart failure with reduced ejection fracture line coronary artery disease EF 30-35% in the past last echo 2021 with EF% Abdominal aortic aneurysm Acute on Chronic anemia. CT chest abdomen pelvis with bleeding. Normocytic anemia. Ferritin 46.5. B12 731 more than 20. Check stool for occult blood. Thrombocytopenia improved fluctuating upon review previous labs. Likely due to chronic alcoholism. Chronic interstitial lung disease in pattern of usual interstitial pneumonia 3.7 cm fusiform aneurysm of the in for aorta DVT prophylaxis on SCDs. Used to be on apixaban prior to admission Code status full code Subjective Date/time seen: 03/08/24 11:38 Interval history: Chart reviewed. No new complaints. No chest pain or shortness of breath. Reports bloating sensation Review of Systems Review of Systems: All systems reviewed & are unremarkable except as noted in HPI and below Exam Narrative: GENERAL APPEARANCE: Appears to be in no acute distress. HEAD: normocephalic atraumatic EYES: PERRL, EOMI. Vision grossly intact. CARDIAC: Normal S1/S2. Rhythm is regular. No murmurs, rubs, or gallops. No cy anosis or pallor. LUNGS: Clear to auscultation without rales, rhonchi, wheezing or diminished breath sounds. Respirations even and unlabored. ABDOMEN: BS positive x 4 quadrants. Soft, mildly distended, nontender. No guarding or rebound. MSK: Distal nv sensation intact blle. Pain to palpation of left hip. PERIPHERAL VASCULAR: Peripheral pulses palpable. Normal perfusion, cap refill <2 seconds. No edema. NEURO: Follows commands. No focal deficits. SKIN: [place] without lesions or eruptions. PSYCH: Stable, no paranoia or delusional thinking. Objective Data Vital Signs Vital Signs: Vital Signs - 24 hr 03/07/24 13:32 03/07/24 13:47 03/07/24 13:47 Temperature 97.8 F 98 F 98 F Pulse Rate 65 72 72 Respiratory Rate 16 16 16 Blood Pressure 109/57 L 110/55 L 110/55 L Pulse Oximetry 100 99 99 Oxygen Delivery 03/07/24 14:00 03/07/24 14:47 03/07/24 15:00 Temperature 97.7 F 98.2 F 98.2 F Pulse Rate 56 L 75 75 Respiratory Rate 14 16 16 Blood Pressure 108/44 L 111/54 L 111/54 L Pulse Oximetry 99 100 100 Oxygen Delivery 03/07/24 15:09 03/07/24 15:40 03/07/24 20:00 Temperature 98 F 98.2 F Pulse Rate 75 40 L 89 Respiratory Rate 16 14 Blood Pressure 111/54 L 119/52 L Pulse Oximetry 100 100 Oxygen Delivery Room Air 03/07/24 20:28 03/07/24 22:21 03/08/24 00:00 Temperature 99.1 F Pulse Rate 91 78 Respiratory Rate 18 Blood Pressure 105/48 L Pulse Oximetry 97 97 Oxygen Delivery Room Air 03/08/24 04:00 03/08/24 06:00 03/08/24 08:45 Temperature 98.2 F Pulse Rate 85 60 Respiratory Rate 20 Blood Pressure 114/52 L Pulse Oximetry 100 99 Oxygen Delivery Room Air Intake/Output Intake/Output: Intake & Output 03/05/24 03/06/24 03/07/24 03/08/24 23:59 23:59 23:59 23:59 Intake Total 3438.3 2828.7 1750 1000 Output Total 500 1200 1000 300 Balance 2938.3 1628.7 750 700 Meds/Results Medications: Active Medications Generic Name Dose Route Start Last Admin Trade Name Freq PRN Reason Stop Dose Admin Acetaminophen 650 mg 03/04/24 21:22 03/04/24 23:47 Acetaminophen 325 Mg Tablet PO 650 mg Q4H PRN Administration Mild Pain (1-3) or Fever Hydrocodone Bitart/Acetaminophen 1 tab 03/04/24 21:22 03/07/24 06:02 Hydrocodone/Acetaminophen (*Crx) 5-325 Mg Tablet PO 1 tab Q4H PRN Administration Pain Rated 4-6 Atorvastatin Calcium 80 mg 03/05/24 21:00 03/07/24 20:28 Atorvastatin 40 Mg Tablet PO 80 mg HS YARA Administration Carvedilol 3.125 mg 03/05/24 09:00 03/06/24 10:29 Carvedilol 3.125 Mg Tablet PO Not Given Q12HR YARA Famotidine 10 mg 03/05/24 09:00 03/07/24 12:57 Famotidine 10 Mg Tablet PO Not Given DAILY YARA Folic Acid 1 mg 03/05/24 09:00 03/07/24 12:57 Folic Acid 1 Mg Tablet PO Not Given DAILY YARA Furosemide 10 mg 03/05/24 09:00 03/06/24 10:22 Furosemide 10 Mg Tablet PO Not Given QAM [facility] Heparin Sodium (Porcine) 5,000 units 03/05/24 09:00 03/07/24 12:57 Heparin Sodium 5,000 Units/Ml Vial SUB-Q Not Given Q12HR YARA Hydromorphone HCl 0.5 mg 03/04/24 21:22 03/07/24 12:53 Hydromorphone Hcl Inj (*Crx) 1 Mg/Ml Syr IV PUSH 0.5 mg Q4H PRN Administration Pain Rated 7-10 Hyoscyamine 0.125 mg 03/05/24 09:54 Hyoscyamine Sulfate 0.125 Mg Tablet SUBLINGUAL QID PRN dyspepsia Lactated Ringer's 1,000 mls @ 100 mls/hr 03/04/24 21:25 03/08/24 00:58 Lr - Lactated Ringers Iv IV CONT 100 mls/hr .Q10H YARA Administration Ceftriaxone Sodium 1 gm in 50 mls @ 100 mls/hr 03/06/24 16:00 03/07/24 16:19 Rocephin 1 Gm/Ns 50 Ml IVPB Infused Q24H YARA Infusion Lactated Ringer's 1,000 mls @ 30 mls/hr 03/07/24 08:40 03/07/24 15:40 Lr - Lactated Ringers Iv IV CONT 30 mls/hr .Q24H YARA Administration Magnesium Sulfate/Dextrose 1 gm in 100 mls @ 100 mls/hr 03/07/24 16:54 Magnesium Sulf 1 Gm/D5w 100 Ml IVPB ONCE PRN Magnesium 1gm IV x one for serum magnesium <1.8. Loperamide HCl 2 mg 03/05/24 09:54 Loperamide Hcl 2 Mg Capsule PO Q6H PRN diarrhea Multivitamins/Calcium 1 tablet 03/05/24 09:00 03/07/24 12:57 Therapeutic Multivitamins/Minerals Tab (*Bkc) PO Not Given DAILY YARA Ondansetron HCl 4 mg 03/04/24 21:22 Ondansetron Inj 4 Mg/2 Ml Vial IV PUSH Q4H PRN Nausea Sacubitril/Valsartan 1 tab 03/05/24 09:00 03/07/24 20:28 Sacubitril/Valsartan 24-26 Mg Tablet PO 1 tab Q12HR YARA Administration Radiology Results: ITS Impressions Head CT 03/04/24 19:10 IMPRESSION: No acute intracranial process. Chest X-Ray 03/04/24 19:12 IMPRESSION: No acute cardiopulmonary process. Hip/Pelvis X-Ray 03/04/24 19:15 IMPRESSION: Comminuted intertrochanteric fracture of the left femur. Chest/Abdomen/Pelvis CT 03/07/24 13:10 IMPRESSION: 1. Comminuted intertrochanteric fracture of proximal left femur. 2. 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 3. Distended rectosigmoid, likely adynamic ileus. 4. 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 Labs Labs: Laboratory Results - last 24 hr 03/05/24 03/07/24 03/07/24 10:50 11:54 17:11 WBC RBC Hgb 8.8 L 10.0 L Hct 27.5 L 30.2 L MCV MCH MCHC RDW Plt Count MPV Sodium Potassium Chloride Carbon Dioxide Anion Gap BUN Creatinine Estim Creat Clear Calc Estimated GFR Glucose Calcium Magnesium 2.4 H Iron 24 L TIBC 210 L % Saturation 11 L Transferrin 149 L Ferritin 46.50 Total Bilirubin AST ALT Alkaline Phosphatase Total Protein Albumin Vitamin B12 731.0 Folate > 20.0 H Blood Type A Positive Antibody Screen Negative Crossmatch See Detail 03/07/24 03/08/24 20:54 06:45 WBC 7.3 RBC 3.56 L Hgb 10.2 L 10.1 L Hct 31.2 L 31.3 L MCV 87.9 MCH 28.4 MCHC 32.3 RDW 13.4 Plt Count 102 L MPV 12.4 H Sodium 140 Potassium 3.4 Chloride 110 H Carbon Dioxide 26 Anion Gap 4 BUN 16 Creatinine 0.70 Estim Creat Clear Calc 78 Estimated GFR > 60 Glucose 123 H Calcium 7.8 L Magnesium 2.3 Iron TIBC % Saturation Transferrin Ferritin Total Bilirubin 1.1 AST 46 ALT 17 Alkaline Phosphatase 55 Total Protein 5.0 L Albumin 2.8 L Vitamin B12 Folate Blood Type Antibody Screen Crossmatch
--- NOTE | 2024-03-08 12:28 | P.CONCA_ITS ---
Assessment and Plan Assessment and plan (1) Pacemaker: Code(s): Z95.0 - Presence of cardiac pacemaker Status: Acute Assessment and Plan: EKG shows sinus rhythm with atrial paced rhythm, RBBB, PVCs. Review of telemetry shows no episodes of bradycardia, shows intermittently paced beats with frequent PVCs. No evidence of pacemaker malfunction or noncapture from review of telemetry. Will have patient's device interrogated. If device interrogation shows well functioning pacemaker, then no additional cardiac workup needed prior to surgery. (2) H/O heart valve replacement with bioprosthetic valve: Code(s): Z95.3 - Presence of xenogenic heart valve Status: Acute Assessment and Plan: Last echocardiogram from 2023 shows well-functioning valve. (3) Hyperlipemia: Code(s): E78.5 - Hyperlipidemia, unspecified Status: Acute Assessment and Plan: Patient reports that he has gas currently and would like to hold Atorvastatin for a few days due to gas (reports he has had issues with gas as a side effect of statin). I am okay with this. Plan to resume statin upon hospital discharge. (4) Closed intertrochanteric fracture of femur: Qualifiers: Encounter type: initial encounter Fracture alignment: displaced L aterality: left Qualified Code(s): S72.142A - Displaced intertrochanteric fracture of left femur, initial encounter for closed fracture Code(s): S72.143A - Displaced intertrochanteric fracture of unspecified femur, initial encounter for closed fracture Status: Acute Assessment and Plan: Ortho planning for surgery. If device interrogation shows well functioning pacemaker, then no additional cardiac workup needed prior to surgery. (5) CHF (congestive heart failure): Code(s): I50.9 - Heart failure, unspecified Status: Acute Assessment and Plan: Stable and euvolemic. Continue home CHF medications. (6) Atrial fibrillation: Code(s): I48.91 - Unspecified atrial fibrillation Status: Acute Assessment and Plan: Recommend to continue beta terese. Hold Eliquis for surgery, resume post- operatively when okay from a surgical standpoint. Plan Recommendations and plan discussed with Hospitalist. History of Present Illness History of Present Illness Consult date/time: 03/08/24 12:28 Requesting physician: Warren Zamorano, GIOVANNA Consult reason: Other (New bradycardia with pacemaker noncapture. Anesthesia holding Ortho surgery. ) Reason For Visit: Left intertrochanteric hip fracture Narrative: This is an 83 year old male who follows with Dr. Pineda in our office. Has history of severe aortic stenosis s/p 34mm Medtronic Evolut PRO+ transcatheter aortic valve on 05/14/2021, CHF with borderline ejection fraction, CAD, bradyarrhythmia / complete heart block s/p permanent pacemaker on 01/27/2021, history of PE/ DVT, prostate cancer, history of alcohol abuse who is admitted to [place] for a displaced and comminuted left intertrochanteric hip fracture after a mechanical ground fall. Scheduled to undergo ORIF left hip intertrochanteric fracture, with cephalomedullary nail. Surgery delayed due to concern for bradycardia with possible pacemaker noncapture. Patient's main compliant this morning is gas. No cardiac complaints. Review of Systems 2 Review of Systems: All systems reviewed & are unremarkable except as noted in HPI and below (HPI) [facility] Past Medical History Medical History (Updated 03/08/24 @ 12:35 by Roly Camacho MD) Pulmonary thrombosis Pacemaker Alcoholism Parkinsons disease Skin cancer Fatty liver Skull fracture Arthritis GERD (gastroesophageal reflux disease) Pneumonia Pulmonary embolism DVT (deep venous thrombosis) Seasonal allergies Surgical History Surgical History (Updated 03/08/24 @ 12:35 by Roly Camacho MD) H/O heart valve replacement with bioprosthetic valve H/O local excision of skin lesion History of tonsillectomy Family History Family History Father Congestive heart failure Heart disease Mother Heart disease Breast cancer Sibling Breast cancer Hx of CABG Social History Social History Smoking packs per day: 1 Smoking cigarettes per day: 20.0 Years smoked: 20 Smoking pack-years: 20.00 Smoking status: Former smoker Second hand tobacco smoke exposure: Yes Additional smoking assessment comments: quit in 1971 Alcohol intake: never Drinks per week: 7 Substance use: never Substance use type: does not use Do You Feel Safe in your Home?: Yes Lack of Transportation: No Lack of Food: Never True Current Housing: I Have Housing Concerned About Future Housing: No Difficulty Paying Gas/Electric Bills: No Difficulty Paying for Meds: No Currently Unemployed: No Education: Master's Degree or Higher Difficulty w/ Childcare or Family Care: YES Living arrangements: with family Additional living arrangements comments: Occupation/Education: retired Gender identity (if verbalized by the patient): Male Sexual Orientation (if Verbalized by the Patient): Straight or Heterosexual Spiritual care concerns: No Agree to blood products: Yes Meds Home Medications and Allergies Home Medications ?Medication ?Instructions ?Recorded ?Confirmed ?Type atorvastatin 80 mg tablet 80 mg PO HS #30 tabs 05/27/19 03/04/24 Rx apixaban 5 mg tablet 5 mg PO BID 05/23/21 03/04/24 History famotidine 10 mg tablet 10 mg PO DAILY 05/23/21 03/04/24 History folic acid 1 mg tablet 1 mg PO DAILY 05/23/21 03/04/24 History furosemide 20 mg tablet 10 mg PO QAM 05/23/21 03/04/24 History multivitamin-iron 9 mg-folic acid 1 tablet PO DAILY 05/23/21 03/04/24 History 400 mcg-calcium and minerals tablet (Thera-M) sacubitril 24 mg-valsartan 26 mg 1 tablet PO BID 05/23/21 03/04/24 History tablet carvedilol 3.125 mg tablet 3.125 mg PO ONCE 12/24/21 03/04/24 History loperamide 2 mg capsule (Imodium 2 mg PO Q6H PRN diarrhea 12/24/21 03/04/24 History A-D) hyoscyamine sulfate 0.125 mg 0.125 mg sublingual QID PRN 03/13/22 03/04/24 Rx sublingual tablet dyspepsia #120 tabs sacubitril 24 mg-valsartan 26 mg 1 tablet PO BID 03/04/24 03/04/24 History tablet (Entresto) Allergies Allergy/AdvReac Type Severity Reaction Status Date / Time No Known Allergies Allergy Unknown Verified 10/23/22 11:41 Vital Signs Vital Signs - 24 hr 03/07/24 13:32 03/07/24 13:47 03/07/24 13:47 Temperature 36.6 C 36.6 C 36.6 C Pulse Rate 65 72 72 Respiratory Rate 16 16 16 Blood Pressure 109/57 L 110/55 L 110/55 L Pulse Oximetry 100 99 99 Oxygen Delivery 03/07/24 14:00 03/07/24 14:47 03/07/24 15:00 Temperature 36.5 C 36.8 C 36.8 C Pulse Rate 56 L 75 75 Respiratory Rate 14 16 16 Blood Pressure 108/44 L 111/54 L 111/54 L Pulse Oximetry 99 100 100 Oxygen Delivery 03/07/24 15:09 03/07/24 15:40 03/07/24 20:00 Temperature 36.6 C 36.8 C Pulse Rate 75 40 L 89 Respiratory Rate 16 14 Blood Pressure 111/54 L 119/52 L Pulse Oximetry 100 100 Oxygen Delivery Room Air 03/07/24 20:28 03/07/24 22:21 03/08/24 00:00 Temperature 37.3 C Pulse Rate 91 78 Respiratory Rate 18 Blood Pressure 105/48 L Pulse Oximetry 97 97 Oxygen Delivery Room Air 03/08/24 04:00 03/08/24 06:00 03/08/24 08:45 Temperature 36.8 C Pulse Rate 85 60 Respiratory Rate 20 Blood Pressure 114/52 L Pulse Oximetry 100 99 Oxygen Delivery Room Air Exam 2 Const: General: no acute distress HENMT: Mouth: Yes moist mucous membranes Eyes: General: appearance normal, both eyes and all related structures S clera: sclerae normal Resp: Effort & Inspection: normal respiratory effort Cardio: Rate: regular rate Rhythm: abnormal rhythm with ectopic beats H eart sounds: no murmurs Skin: General skin exam: normal color Neuro: Speech: normal speech Psych: Mental Status: mental status grossly normal Affect: normal affect Results Labs and Meds 03/08/24 06:45 03/08/24 06:45 Lab results: Cardiac Enzymes 03/08/24 Range/Units 06:45 AST 46 (17-59) U/L CBC 03/07/24 03/07/24 03/08/24 Range/Units 17:11 20:54 06:45 WBC 7.3 (4.5-10.0) K/mm3 RBC 3.56 L (4.6-6.20) M/mm3 Hgb 10.0 L 10.2 L 10.1 L (14.0-18.0) g/dL Hct 30.2 L 31.2 L 31.3 L (42.0-52.0) % Plt Count 102 L (150-375) k/mm3 Comprehensive Metabolic Panel 03/08/24 Range/Units 06:45 Sodium 140 (137-145) mmol/L Potassium 3.4 (3.4-5.0) mmol/L Chloride 110 H (98-107) mmol/L Carbon Dioxide 26 (22-30) mmol/L BUN 16 (9-20) mg/dL Creatinine 0.70 (0.7-1.3) mg/dL Glucose 123 H (65-110) mg/dL Calcium 7.8 L (8.4-10.2) mg/dL AST 46 (17-59) U/L ALT 17 (6-50) U/L Alkaline Phosphatase 55 (38-126) U/L Total Protein 5.0 L (6.3-8.2) g/dL Albumin 2.8 L (3.5-5.1) g/dL Intake and Output 03/07/24 03/08/24 03/08/24 23:59 07:59 15:59 Intake Total 50 1000 Output Total 350 300 Balance -300 700 Intake: IV 50 1000 Lactated Ringers 1,000 ml @ 100 1000 mls/hr IV CONT .Q10H YARA Rx#: [id number] cefTRIAXone 1 GM/NS 50 ML 1 gm 50 In 50 ml @ 100 mls/hr IVPB Q24H [facility] Rx#:[id number] Oral 0 Output: Catheter Urine 350 300 Urethral Catheter 350 300
[2024-03-08] MEDS: HYDROmorphone HCL INJ (*CRX) 1 MG/ML SYR 0.5 MG IV PUSH (15:52)
--- NOTE | 2024-03-08 17:36 | WPDHPUPDATE1 ---
History and Physical Update Update Date/Time: 03/08/24 17:36 History and Physical has been reviewed, including an updated exam of the patient. There are NO changes in the patient's condition. Risks, benefits, and alternatives have been discussed and questions answered. Patient agrees to proceed with procedure.
--- NOTE | 2024-03-08 19:40 | P.PNAN_ITS ---
Anes - Initial Pre Proc Eval Procedure: Operation Date: 03/07/24 16:30 Proposed Procedures p Left Intertrochanteric Nail - Judah Brenner MD Operation Date: 03/08/24 19:00 Proposed Procedures p Left Intertrochanteric Nail - Judah Brenner MD Date/Time: 03/08/24 19:40 Surgeon: Matty Soliz MD Pre Op Diagnosis: Left intertrochanteric hip fracture Patient Data Age: 83 Gender: M Height: 1.85 m Weight: 78.6 kg Last Vital Signs Temp 37.7 C H 03/08/24 14:00 Pulse 79 03/08/24 14:00 Resp 16 03/08/24 14:00 BP 115/46 L 03/08/24 14:00 Pulse Ox 96 03/08/24 14:00 O2 Del Method Room Air 03/08/24 08:45 Allergies Allergy/AdvReac Type Severity Reaction Status Date / Time No Known Allergies Allergy Unknown Verified 10/23/22 11:41 Home Medications ?Medication ?Instructions ?Recorded ?Confirmed ?Type atorvastatin 80 mg tablet 80 mg PO HS #30 tabs 05/27/19 03/04/24 Rx apixaban 5 mg tablet 5 mg PO BID 05/23/21 03/04/24 History famotidine 10 mg tablet 10 mg PO DAILY 05/23/21 03/04/24 History folic acid 1 mg tablet 1 mg PO DAILY 05/23/21 03/04/24 History furosemide 20 mg tablet 10 mg PO QAM 05/23/21 03/04/24 History multivitamin-iron 9 mg-folic acid 1 tablet PO DAILY 05/23/21 03/04/24 History 400 mcg-calcium and minerals tablet (Thera-M) sacubitril 24 mg-valsartan 26 mg 1 tablet PO BID 05/23/21 03/04/24 History tablet carvedilol 3.125 mg tablet 3.125 mg PO ONCE 12/24/21 03/04/24 History loperamide 2 mg capsule (Imodium 2 mg PO Q6H PRN diarrhea 12/24/21 03/04/24 History A-D) hyoscyamine sulfate 0.125 mg 0.125 mg sublingual QID PRN 03/13/22 03/04/24 Rx sublingual tablet dyspepsia #120 tabs sacubitril 24 mg-valsartan 26 mg 1 tablet PO BID 03/04/24 03/04/24 History tablet (Entresto) Laboratory Tests 03/07/24 03/08/24 20:54 06:45 WBC 7.3 K/mm3 (4.5-10.0) RBC 3.56 L M/mm3 (4.6-6.20) Hgb 10.2 L g/dL 10.1 L g/dL (14.0-18.0) (14.0-18.0) Hct 31.2 L % 31.3 L % (42.0-52.0) (42.0-52.0) MCV 87.9 fl (80-100) MCH 28.4 pg (26-34) MCHC 32.3 g/dl (32-36) RDW 13.4 % (11.5-14.5) Plt Count 102 L k/mm3 (150-375) MPV 12.4 H fl (7.4-10.4) Sodium 140 mmol/L (137-145) Potassium 3.4 mmol/L (3.4-5.0) Chloride 110 H mmol/L (98-107) Carbon Dioxide 26 mmol/L (22-30) Anion Gap 4 mmol/L (4-12) BUN 16 mg/dL (9-20) Creatinine 0.70 mg/dL (0.7-1.3) Estim Creat Clear Calc 78 ml/min Estimated GFR > 60 (59 - ) Glucose 123 H mg/dL (65-110) Calcium 7.8 L mg/dL (8.4-10.2) Magnesium 2.3 mg/dL (1.6-2.3) Total Bilirubin 1.1 mg/dL (0.2-1.3) AST 46 U/L (17-59) ALT 17 U/L (6-50) Alkaline Phosphatase 55 U/L (38-126) Total Protein 5.0 L g/dL (6.3-8.2) Albumin 2.8 L g/dL (3.5-5.1) Patient hx anesthesia problems: none Family hx anesthesia problems: none Results Review: All pre-operative results and documents have been reviewed as part of the pre- operative evaluation. [facility] Past Medical History Medical History Pulmonary thrombosis Pacemaker Alcoholism Parkinsons disease Skin cancer Fatty liver Skull fracture Arthritis GERD (gastroesophageal reflux disease) Pneumonia Pulmonary embolism DVT (deep venous thrombosis) Seasonal allergies Surgical History Surgical History H/O heart valve replacement with bioprosthetic valve H/O local excision of skin lesion History of tonsillectomy Family History Family History Father Congestive heart failure Heart disease Mother Heart disease Breast cancer Sibling Breast cancer Hx of CABG Social History Social History Smoking packs per day: 1 Smoking cigarettes per day: 20.0 Years smoked: 20 Smoking pack-years: 20.00 Smoking status: Former smoker Second hand tobacco smoke exposure: Yes Additional smoking assessment comments: quit in 1971 Alcohol intake: never Drinks per week: 7 Substance use: never Substance use type: does not use Do You Feel Safe in your Home?: Yes Lack of Transportation: No Lack of Food: Never True Current Housing: I Have Housing Concerned About Future Housing: No Difficulty Paying Gas/Electric Bills: No Difficulty Paying for Meds: No Currently Unemployed: No Education: Master's Degree or Higher Difficulty w/ Childcare or Family Care: YES Living arrangements: with family Additional living arrangements comments: Occupation/Education: retired Gender identity (if verbalized by the patient): Male Sexual Orientation (if Verbalized by the Patient): Straight or Heterosexual Spiritual care concerns: No Agree to blood products: Yes Anes - Eval Final PreProcedure Day of Procedure 03/08/24 19:40 Patient weight: normal Heart: irregular rhythm Lungs: decreased breath sounds Airway: Mallampati scale class II Neurological: alert and oriented Last oral intake: >/= 8 hours ASA classification: IV Emergent: no Anesthetic plan: proceed Anesthesia type and monitoring: general LMA and standard monitoring Results Review: All pre-operative results and documents have been reviewed as part of the pre- operative evaluation. Informed Consent: The patient's anesthetic plan and its attendant risks and benefits were discu ssed with the patient/family/POA. Questions were solicited and answers provided to the satisfaction of the patient/family/POA.
--- NOTE | 2024-03-08 19:50 | P.OP_ITS ---
Procedure Note - Detailed Date of Procedure 03/08/24 Pre-op Diagnosis Left femur intertrochanteric hip fracture with subtrochanteric extension. Post-op Diagnosis Same Procedure Performed ORIF femur intertrochanteric fracture with cephalomedullary nail, left. Surgeon Judah Brenner MD Airbrush Painter Eloisa Victoria PA-C Anesthesia General Findings Comminuted unstable fracture with subtrochanteric extension. Required open reduction with Garza elevator and bone hook. Good reduction obtained with the long locked nail. Left threaded lag screw used to limited head-neck rotation during screw insersion. Description of Procedure The patient was given a general anesthetic, then carefully placed in fracture table. Sterile prep and drape performed in the usual fashion. Sterile curtain was used. Gentle traction was utilized to reduce the fracture. Fluoroscopy was used to confirm anatomic reduction and a proper placement of the implants. A longitudinal incision was created at the tip of the trochanter. The deep fascia was incised. The cannulated awl was used to open the proximal femur. The guidewire was placed across the fracture. The reamer was used to open the canal. The flexible reamers were then used to open the distal canal to 14 mm. The nail was placed across the fracture site. A separate incision was made for placement of the cannulated guide sleeve. The guide pin was placed in the center of the femoral head. Appropriate measurement was taken. The pin was over reamed. The screw was placed with excellent purchase. The mid-shaft locking screw was placed through the jig. The jig was removed. The wounds were irrigated and closed. The deep fascia was closed with #1 Vicryl suture followed by 2-0 Vicryl suture and jarvis. Sterile dressing was applied. The patient was transferred to the recovery room in stable condition. There were no complications. Implants Arthrex hip ES trochanteric fracture nail 12.5 x 42 mm. 130?. 100 mm lag screw.Left turning. 38 mm distal locking screw. Estimated Blood Loss 300 Drains No Packing No Pathology None sent Complications No immediate complications Condition Stable Disposition PACU [facility] Billing Surgery - Charge Forward: Surgery Billing
[2024-03-08] MEDS: fentaNYL CITRATE INJ (*CRX) 100 MCG/2 ML VIAL 25 MCG IV PUSH (22:26)
[2024-03-08] MEDS: PANTOPRAZOLE SODIUM IV 40 MG VIAL IV PUSH (23:30)
[2024-03-08] MEDS: SODIUM CHLORIDE 0.9% IV 1,000 ML 125 ML IV CONT (23:30)
[2024-03-09] VITALS (9 sets, daily range): BP systolic 80–112; BP diastolic 40–59; PULSE 50–85; RESP 14–18; TEMP 36.2–37.3; O2SAT 94–100
[2024-03-09 07:15] LABS: Basophils Percent Auto 0.1 % (0.2-1.2); Hematocrit 30.8 % (42.0-52.0); Immature Granulocyte Absolute 0.03 K/mm3 (0.00-0.031); Immature Granulocyte Percent A 0.3 % (0-0.5); Lymphocytes Absolute Auto 0.43 K/mm3 (0.9-3.2); Lymphocytes Percent Auto 4.9 % (18.3-44.2); Mean Corpuscular HGB Conc 32.5 g/dl (32-36); Mean Corpuscular Hemoglobin 28.6 pg (26-34); Mean Platelet Volume 12.1 fl (7.4-10.4); Monocytes Absolute Auto 0.7 K/mm3 (0.1-0.6); Monocytes Percent Auto 7.8 % (2.6-8.5); Neutrophils Absolute Auto 7.6 K/mm3 (1.3-6.7); Neutrophils Percent Auto 86.9 % (45.5-73.1); Platelet Count Result 124 k/mm3 (150-375); Red Cell Distribution Width 13.5 % (11.5-14.5); White Blood Count 8.8 K/mm3 (4.5-10.0)
[2024-03-09 07:22] LABS: Alanine Aminotransferase 21 U/L (6-50); Albumin Level 2.7 g/dL (3.5-5.1); Alkaline Phosphatase 55 U/L (38-126); Anion Gap 3 mmol/L (4-12); Aspartate Amino Transferase 51 U/L (17-59); Blood Urea Nitrogen 17 mg/dL (9-20); Calcium 7.7 mg/dL (8.4-10.2); Carbon Dioxide 27 mmol/L (22-30); Chloride 112 mmol/L (98-107); Estimated CRCL calculation 82 ml/min; Estimated Glomerular Filt Rate > 60; Glucose 134 mg/dL (65-110); Magnesium 2.6 mg/dL (1.6-2.3); Potassium 3.2 mmol/L (3.4-5.0); Sodium 142 mmol/L (137-145)
--- NOTE | 2024-03-09 07:51 | P.PNOP_ITS ---
Progress Note: A&P Assessment and Plan (1) Closed intertrochanteric fracture of femur: Qualifiers: Encounter type: initial encounter Fracture alignment: displaced Laterality: left Qualified Code(s): S72.142A - Displaced intertrochanteric fracture of left femur, initial encounter for closed fracture Code(s): S72.143A - Displaced intertrochanteric fracture of unspecified femur, initial encounter for closed fracture Status: Acute Assessment and Plan: Postop day 1: ORIF femur intertrochanteric fracture with cephalomedullary nail, left. Patient tolerated procedure well. No complications. Pain manageable. Work with PT/OT today. Discharge planning in progress. Will benefit from SNF/Rehab. Subjective Subjective Date/Time Seen: 03/09/24 07:51 Interval history: Patient resting comfortably in bed at the time of my visit. No complaints. Review of Systems Review of Systems: All systems reviewed & are unremarkable except as noted in HPI and below Exam Narrative: Normal weight 83 y/o Male. Resting comfortably in bed. Wearing compression socks bilaterally. Dressing dry and intact with no drainage. Moderate swelling. No ecchymosis. No erythema. No hematoma. Range of motion limited due to pain. Calf nontender. Thigh nontender. No varicosities. Distal pulses palpable. Objective Data Vital Signs Vital Signs: Vital Signs - 24 hr 03/08/24 08:45 03/08/24 14:00 03/08/24 22:00 Temperature 99.8 F H 97.5 F L Pulse Rate 79 98 Respiratory Rate 16 16 Blood Pressure 115/46 L 122/92 H Pulse Oximetry 99 96 97 Oxygen Delivery Room Air Room Air 03/08/24 22:15 03/08/24 22:30 03/08/24 22:45 Temperature Pulse Rate 88 88 76 Respiratory Rate 18 14 16 Blood Pressure 97/65 L 112/65 109/62 Pulse Oximetry 97 96 95 Oxygen Delivery Room Air Room Air Room Air 03/08/24 22:59 03/08/24 23:30 03/09/24 00:00 Temperature 97.2 F L 96.9 F L Pulse Rate 79 72 72 Respiratory Rate 18 14 14 Blood Pressure 113/49 L 106/53 L Pulse Oximetry 98 100 100 Oxygen Delivery Room Air 03/09/24 00:00 03/09/24 01:00 03/09/24 04:00 Temperature 97.2 F L Pulse Rate 70 71 85 Respiratory Rate 17 Blood Pressure 112/59 L Pulse Oximetry 98 Oxygen Delivery 03/09/24 04:44 Temperature 97.2 F L Pulse Rate 50 L Respiratory Rate 14 Blood Pressure 106/49 L Pulse Oximetry 98 Oxygen Delivery Intake/Output Intake/Output: Intake & Output 03/06/24 03/07/24 03/08/24 03/09/24 23:59 23:59 23:59 23:59 Intake Total 2828.7 1750 1029 0 Output Total 1200 1000 700 300 Balance 1628.7 750 329 -300 Meds/Results Medications: Active Medications Generic Name Dose Route Start Last Admin Trade Name Freq PRN Reason Stop Dose Admin Acetaminophen 500 mg 03/08/24 22:59 Acetaminophen 500 Mg Tablet PO Q6H PRN Pain Rated 1-3 Atorvastatin Calcium 80 mg 03/05/24 21:00 03/07/24 20:28 Atorvastatin 40 Mg Tablet PO 80 mg HS YARA Administration Carvedilol 3.125 mg 03/05/24 09:00 03/06/24 10:29 Carvedilol 3.125 Mg Tablet PO Not Given Q12HR YARA Folic Acid 1 mg 03/05/24 09:00 03/07/24 12:57 Folic Acid 1 Mg Tablet PO Not Given DAILY YARA Furosemide 10 mg 03/05/24 09:00 03/06/24 10:22 Furosemide 10 Mg Tablet PO Not Given QAM [facility] Heparin Sodium (Porcine) 5,000 units 03/05/24 09:00 03/07/24 12:57 Heparin Sodium 5,000 Units/Ml Vial SUB-Q Not Given Q12HR YARA Hydromorphone HCl 1 mg 03/08/24 22:59 Hydromorphone Hcl Inj (*Crx) 1 Mg/Ml Syr IV PUSH Q2H PRN Breakthrough Pain Rated 7-10 or NPO Hydromorphone HCl 0.5 mg 03/08/24 22:59 Hydromorphone Hcl Inj (*Crx) 1 Mg/Ml Syr IV PUSH Q2H PRN Breakthrough Pain Rated 4-6 or NPO Hydroxyzine Pamoate 50 mg 03/08/24 22:59 Hydroxyzine Pamoate 25 Mg Capsule PO Q4H PRN Itching Hyoscyamine 0.125 mg 03/05/24 09:54 Hyoscyamine Sulfate 0.125 Mg Tablet SUBLINGUAL QID PRN dyspepsia Lactated Ringer's 1,000 mls @ 100 mls/hr 03/04/24 21:25 03/08/24 00:58 Lr - Lactated Ringers Iv IV CONT 100 mls/hr .Q10H YARA Administration Ceftriaxone Sodium 1 gm in 50 mls @ 100 mls/hr 03/06/24 16:00 03/08/24 15:53 Rocephin 1 Gm/Ns 50 Ml IVPB 100 mls/hr Q24H YARA Administration Lactated Ringer's 1,000 mls @ 30 mls/hr 03/07/24 08:40 03/08/24 22:58 Lr - Lactated Ringers Iv IV CONT 30 mls/hr .Q24H YARA Infusion Magnesium Sulfate/Dextrose 1 gm in 100 mls @ 100 mls/hr 03/07/24 16:54 Magnesium Sulf 1 Gm/D5w 100 Ml IVPB ONCE PRN Magnesium 1gm IV x one for serum magnesium <1.8. Lactated Ringer's 1,000 mls @ 30 mls/hr 03/08/24 19:45 Lr - Lactated Ringers Iv IV CONT .Q24H YARA Lactated Ringer's 1,000 mls @ 30 mls/hr 03/08/24 19:45 Lr - Lactated Ringers Iv IV CONT .Q24H YARA Sodium Chloride 1,000 mls @ 125 mls/hr 03/08/24 22:59 03/08/24 23:30 Normal Saline Iv IV CONT 125 mls/hr .Q8H YARA Administration Loperamide HCl 2 mg 03/05/24 09:54 Loperamide Hcl 2 Mg Capsule PO Q6H PRN diarrhea Multivitamins/Calcium 1 tablet 03/05/24 09:00 03/07/24 12:57 Therapeutic Multivitamins/Minerals Tab (*Bkc) PO Not Given DAILY YARA Naloxone HCl 0.1 mg 03/08/24 22:59 Naloxone Hcl 0.4 Mg/Ml Vial IV PUSH Q2M PRN Opiate Reversal Ondansetron HCl 4 mg 03/08/24 22:59 Ondansetron Inj 4 Mg/2 Ml Vial IV PUSH Q4H PRN Nausea And Vomiting Oxycodone/Acetaminophen 1 tablet 03/08/24 22:59 Oxycodone/Acetaminophen (*Crx) 5-325 Mg Tablet PO Q4H PRN Pain Rated 4-6 Oxycodone/Acetaminophen 1 tab 03/08/24 22:59 Oxycodone/Acetaminophen (*Crx) 10-325 Mg Tablet PO Q6H PRN Pain Rated 7-10 Pantoprazole Sodium 40 mg 03/08/24 21:00 03/08/24 23:30 Pantoprazole Sodium Iv 40 Mg Vial IV PUSH 40 mg Q12HR YARA Administration Polyethylene Glycol 17 gm 03/09/24 09:00 Polyethylene Glycol 3350 17 Gm Powd.Pack PO QAM YARA Sacubitril/Valsartan 1 tab 03/05/24 09:00 03/07/24 20:28 Sacubitril/Valsartan 24-26 Mg Tablet PO 1 tab Q12HR YARA Administration Senna/Docusate Sodium 2 tab 03/09/24 09:00 Senna/Docusate Sodium Tablet PO Q12HR YARA Radiology Results: ITS Impressions Head CT 03/04/24 19:10 IMPRESSION: No acute intracranial process. Chest X-Ray 03/04/24 19:12 IMPRESSION: No acute cardiopulmonary process. Hip/Pelvis X-Ray 03/04/24 19:15 IMPRESSION: Comminuted intertrochanteric fracture of the left femur. Chest/Abdomen/Pelvis CT 03/07/24 13:10 IMPRESSION: 1. Comminuted intertrochanteric fracture of proximal left femur. 2. 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 3. Distended rectosigmoid, likely adynamic ileus. 4. 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 Labs Labs: Laboratory Results - last 24 hr 03/09/24 06:25 Sodium 142 Potassium 3.2 L Chloride 112 H Carbon Dioxide 27 Anion Gap 3 L BUN 17 Creatinine 0.66 L Estim Creat Clear Calc 82 Estimated GFR > 60 Glucose 134 H Calcium 7.7 L Magnesium 2.6 H Total Bilirubin 1.0 AST 51 ALT 21 Alkaline Phosphatase 55 Total Protein 5.0 L Albumin 2.7 L Quality VTE Prophylaxis VTE prophylaxis: mechanical ordered
[2024-03-09] MEDS: HEPARIN SODIUM 5,000 UNITS/ML VIAL 5000 UNITS SUB-Q ×2 (09:00→22:24)
[2024-03-09] MEDS: FOLIC ACID 1 MG TABLET PO (09:00)
[2024-03-09] MEDS: PANTOPRAZOLE SODIUM IV 40 MG VIAL IV PUSH ×2 (09:00→22:24)
[2024-03-09] MEDS: THERAPEUTIC MULTIVITAMINS/MINERALS TAB (*BKC) 1 TABLET PO (09:00)
--- NOTE | 2024-03-09 09:15 | PCPTNOTE ---
HOLD PT evaluation this AM---pt has pain report of 10/10, with bright redness and swelling over testicles. Discussed with LUL Burrows--she checked pt and stated to HOLD PT this morning. Will check later. pt is also NPO for bowel issues with surgical consult for it.
--- NOTE | 2024-03-09 09:38 | P.PNIM_ITS ---
Progress Note: A&P Assessment and Plan (1) Ground-level fall: Code(s): W18.30XA - Fall on same level, unspecified, initial encounter Status: Acute (2) Closed intertrochanteric fracture of femur: Qualifiers: Encounter type: initial encounter Fracture alignment: displaced Laterality: left Qualified Code(s): S72.142A - Displaced intertrochanteric fracture of left femur, initial encounter for closed fracture Code(s): S72.143A - Displaced intertrochanteric fracture of unspecified femur, initial encounter for closed fracture Status: Acute (3) Alcoholism: Code(s): F10.20 - Alcohol dependence, uncomplicated Status: Acute Assessment and Plan: Delete (4) Cardiomyopathy: Code(s): I42.9 - Cardiomyopathy, unspecified Status: Acute (5) Atrial fibrillation with RVR: Code(s): I48.91 - Unspecified atrial fibrillation Status: Acute (6) Pulmonary embolism: Qualifiers: Acute cor pulmonale presence: without acute cor pulmonale Chronicity: acute Pulmonary embolism type: unspecified Qualified Code(s): I26.99 - Other pulmonary embolism without acute cor pulmonale Code(s): I26.99 - Other pulmonary embolism without acute cor pulmonale Status: Acute (7) Parkinsons disease: Code(s): G20 - Parkinson's disease Status: Acute (8) Thrombocytopenia: Code(s): D69.6 - Thrombocytopenia, unspecified Status: Acute (9) Anemia: Code(s): D64.9 - Anemia, unspecified Status: Acute Plan This is an 83-year-old male presented to the ED/12/17 after a ground level fall mechanical while using his walker. Patient was unable to get back up. No loss of consciousness. Hip pain. Workup revealed comminuted intertrochanteric fracture of left femur. Patient was admitted for further treatment. CT head was negative. Chest x-ray with no acute cardiopulmonary process. Orthopedic was consulted. Planned left hip cephalomedullary nailing. Anemia been down to 7.4 received 2 unit of transfusion. Hemoglobin of 10 today. No signs of bleeding. Could be hemodilution now as he has received 10 L +since admission. CTA chest abdomen pelvis with no bleeding. Findings of adynamic ileus Fall ORIF femur intertrochanteric fracture with cephalomedullary nail, left on 03/08. Scrotal redness US shows possible cellulitis Ordered Zyvox and continue ceftriaxone Adynamic ileus Having bowel movement now. Advance diet as tolerate Surgery consulted Continue to monitor Alcoholism History of alcoholism has not drank since 5 years. 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 Congestive heart failure with reduced ejection fracture line coronary artery disease EF 30-35% in the past last echo 2021 with EF% Abdominal aortic aneurysm AFib chronic rate controlled anticoagulated which is on hold for the surgery Parkinson's disease History of DVT/PE on chronic anticoagulation Acute on Chronic anemia. Received 2 U PRBC on 03/07 CT chest abdomen pelvis reviewed Ferritin 46.5. B12 731 more than 20. Check stool for occult blood. Thrombocytopenia improved fluctuating upon review previous labs. Likely due to chronic alcoholism. DVT prophylaxis on SCDs. Used to be on apixaban prior to admission Code status full code Subjective Date/time seen: 03/09/24 09:38 Interval history: Nurse called due to the concerns of scrotal edema which has been increased in past 2 days. I assumed the patient care today. Upon evaluating the patient the scrotum looks edematous and redness. Ordered US of scrotum which shows possible cellulitis Ordered Zyvox and scrotal support. Urology is consulted.Patient is already in NPO and when asked about the reason ,its due to bowel obstruction but surgery was not consulted. CT abd shows adynamic ileus. The patient had a bowel movement this morning. No evidence of nausea or vomiting. Surgery is consulted who recommend continuing advancing the diet. Patient underwent yesterday, ORIF femur intertrochanteric fracture with cephalomedullary nail, left. Off note: Patient was previously evaluated by cardiology due pacemaker non capture/malfunctioning. He had a significant drop in hemoglobin on 03/07. Abd/pelvis CT performed at that time shows 1. Comminuted intertrochanteric fracture of proximal left femur.2. Chronic interstitial lung disease in a pattern of usual interstitial pneumonia (UIP).3. Distended rectosigmoid, likely adynamic ileus.4. 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 Review of Systems Review of Systems: Fall, left hip pain with movement, unable to bear weight. All systems reviewed & are unremarkable except as noted in HPI and below Exam Narrative: GENERAL APPEARANCE: Appears to be in no acute distress. HEAD: normocephalic atraumatic EYES: PERRL, EOMI. Vision grossly intact. CARDIAC: Normal S1/S2. Rhythm is regular. No murmurs, rubs, or gallops. No cyanosis or pallor. LUNGS: Clear to auscultation without rales, rhonchi, wheezing or diminished breath sounds. Respirations even and unlabored. ABDOMEN: BS positive x 4 quadrants. Soft, mildly distended, nontender. No guarding or rebound. MSK: Distal nv sensation intact blle. Pain to palpation of left hip. PERIPHERAL VASCULAR: Peripheral pulses palpable. Normal perfusion, cap refill <2 seconds. No edema. NEURO: Follows commands. No focal deficits. SKIN: [place] without lesions or eruptions. PSYCH: Stable, no paranoia or delusional thinking. Const: General: comfortable, no acute distress, well developed, alert, awake, average body habitus and thin Nutritional Appearance: average body habitus and thin Orientation/consciousness: patient oriented x3 Other: Well-appearing HENMT: Head: normal to inspection, normocephalic and atraumatic Ears: hearing grossly normal bilaterally Face/Nose/Sinus: normal facial exam Face and sinus: normal facial exam Eyes: General: appearance normal, both eyes and all related structures Pupils: Equal, round and reactive pupils present EOM: EOMs intact bilaterally Neck: Neck: full ROM, no lymphadenopathy and no JVD Thyroid: thyroid normal Lymphatic: no lymphadenopathy noted Resp: Effort & Inspection: normal respiratory effort and able to speak in complete sentences Auscultation: clear to auscultation bilaterally Cardio: Jugular venous distension: no JVD Rate: regular rate Rhythm: regular rhythm Heart sounds: S1 normal heart sound present and S2 normal heart sound present : General: Yes deferred Skin: Rashes: no rashes Wounds: no wounds Neuro: General: patient oriented x3, CN's II-XI intact bilaterally and Unable to assess gait Cranial nerves: Yes CN's II-XII intact bilaterally and Yes Equal, round and reactive pupils present Cognition (Neuro): normal cognition Speech: normal speech Gait exam (Neuro): Unable to assess gait Motor exam (neuro): 5/5 motor strength present throughout Extrem: Other: Left leg is externally rotated and shortened Objective Data Vital Signs Vital Signs: Vital Signs - 24 hr 03/08/24 14:00 03/08/24 22:00 03/08/24 22:15 Temperature 99.8 F H 97.5 F L Pulse Rate 79 98 88 Respiratory Rate 16 16 18 Blood Pressure 115/46 L 122/92 H 97/65 L Pulse Oximetry 96 97 97 Oxygen Delivery Room Air Room Air 03/08/24 22:30 03/08/24 22:45 03/08/24 22:59 Temperature 97.2 F L Pulse Rate 88 76 79 Respiratory Rate 14 16 18 Blood Pressure 112/65 109/62 113/49 L Pulse Oximetry 96 95 98 Oxygen Delivery Room Air Room Air 03/08/24 23:30 03/09/24 00:00 03/09/24 00:00 Temperature 96.9 F L Pulse Rate 72 72 70 Respiratory Rate 14 14 Blood Pressure 106/53 L Pulse Oximetry 100 100 Oxygen Delivery Room Air 03/09/24 01:00 03/09/24 04:00 03/09/24 04:44 Temperature 97.2 F L 97.2 F L Pulse Rate 71 85 50 L Respiratory Rate 17 14 Blood Pressure 112/59 L 106/49 L Pulse Oximetry 98 98 Oxygen Delivery Intake/Output Intake/Output: Intake & Output 03/06/24 03/07/24 03/08/24 03/09/24 23:59 23:59 23:59 23:59 Intake Total 2828.7 1750 1029 0 Output Total 1200 1000 700 300 Balance 1628.7 750 329 -300 Meds/Results Medications: Active Medications Generic Name Dose Route Start Last Admin Trade Name Poli PRN Reason Stop Dose Admin Acetaminophen 500 mg 03/08/24 22:59 Acetaminophen 500 Mg Tablet PO Q6H PRN Pain Rated 1-3 Atorvastatin Calcium 80 mg 03/05/24 21:00 03/07/24 20:28 Atorvastatin 40 Mg Tablet PO 80 mg HS YARA Administration Carvedilol 3.125 mg 03/05/24 09:00 03/06/24 10:29 Carvedilol 3.125 Mg Tablet PO Not Given Q12HR YARA Folic Acid 1 mg 03/05/24 09:00 03/07/24 12:57 Folic Acid 1 Mg Tablet PO Not Given DAILY YARA Furosemide 10 mg 03/05/24 09:00 03/06/24 10:22 Furosemide 10 Mg Tablet PO Not Given QAM YARA Heparin Sodium (Porcine) 5,000 units 03/05/24 09:00 03/07/24 12:57 Heparin Sodium 5,000 Units/Ml Vial SUB-Q Not Given Q12HR YARA Hydromorphone HCl 1 mg 03/08/24 22:59 Hydromorphone Hcl Inj (*Crx) 1 Mg/Ml Syr IV PUSH Q2H PRN Breakthrough Pain Rated 7-10 or NPO Hydromorphone HCl 0.5 mg 03/08/24 22:59 Hydromorphone Hcl Inj (*Crx) 1 Mg/Ml Syr IV PUSH Q2H PRN Breakthrough Pain Rated 4-6 or NPO Hydroxyzine Pamoate 50 mg 03/08/24 22:59 Hydroxyzine Pamoate 25 Mg Capsule PO Q4H PRN Itching Hyoscyamine 0.125 mg 03/05/24 09:54 Hyoscyamine Sulfate 0.125 Mg Tablet SUBLINGUAL QID PRN dyspepsia Lactated Ringer's 1,000 mls @ 100 mls/hr 03/04/24 21:25 03/08/24 00:58 Lr - Lactated Ringers Iv IV CONT 100 mls/hr .Q10H YARA Administration Ceftriaxone Sodium 1 gm in 50 mls @ 100 mls/hr 03/06/24 16:00 03/08/24 15:53 Rocephin 1 Gm/Ns 50 Ml IVPB 100 mls/hr Q24H YARA Administration Lactated Ringer's 1,000 mls @ 30 mls/hr 03/07/24 08:40 03/08/24 22:58 Lr - Lactated Ringers Iv IV CONT 30 mls/hr .Q24H YARA Infusion Magnesium Sulfate/Dextrose 1 gm in 100 mls @ 100 mls/hr 03/07/24 16:54 Magnesium Sulf 1 Gm/D5w 100 Ml IVPB ONCE PRN Magnesium 1gm IV x one for serum magnesium <1.8. Lactated Ringer's 1,000 mls @ 30 mls/hr 03/08/24 19:45 Lr - Lactated Ringers Iv IV CONT .Q24H YARA Lactated Ringer's 1,000 mls @ 30 mls/hr 03/08/24 19:45 Lr - Lactated Ringers Iv IV CONT .Q24H YARA Sodium Chloride 1,000 mls @ 125 mls/hr 03/08/24 22:59 03/08/24 23:30 Normal Saline Iv IV CONT 125 mls/hr .Q8H YARA Administration Loperamide HCl 2 mg 03/05/24 09:54 Loperamide Hcl 2 Mg Capsule PO Q6H PRN diarrhea Multivitamins/Calcium 1 tablet 03/05/24 09:00 03/07/24 12:57 Therapeutic Multivitamins/Minerals Tab (*Bkc) PO Not Given DAILY [facility] Naloxone HCl 0.1 mg 03/08/24 22:59 Naloxone Hcl 0.4 Mg/Ml Vial IV PUSH Q2M PRN Opiate Reversal Ondansetron HCl 4 mg 03/08/24 22:59 Ondansetron Inj 4 Mg/2 Ml Vial IV PUSH Q4H PRN Nausea And Vomiting Oxycodone/Acetaminophen 1 tablet 03/08/24 22:59 Oxycodone/Acetaminophen (*Crx) 5-325 Mg Tablet PO Q4H PRN Pain Rated 4-6 Oxycodone/Acetaminophen 1 tab 03/08/24 22:59 Oxycodone/Acetaminophen (*Crx) 10-325 Mg Tablet PO Q6H PRN Pain Rated 7-10 Pantoprazole Sodium 40 mg 03/08/24 21:00 03/08/24 23:30 Pantoprazole Sodium Iv 40 Mg Vial IV PUSH 40 mg Q12HR YARA Administration Polyethylene Glycol 17 gm 03/09/24 09:00 Polyethylene Glycol 3350 17 Gm Powd.Pack PO QAM YARA Sacubitril/Valsartan 1 tab 03/05/24 09:00 03/07/24 20:28 Sacubitril/Valsartan 24-26 Mg Tablet PO 1 tab Q12HR YRAA Administration Senna/Docusate Sodium 2 tab 03/09/24 09:00 Senna/Docusate Sodium Tablet PO Q12HR [facility] Radiology Results: ITS Impressions Head CT 03/04/24 19:10 IMPRESSION: No acute intracranial process. Chest X-Ray 03/04/24 19:12 IMPRESSION: No acute cardiopulmonary process. Hip/Pelvis X-Ray 03/04/24 19:15 IMPRESSION: Comminuted intertrochanteric fracture of the left femur. Chest/Abdomen/Pelvis CT 03/07/24 13:10 IMPRESSION: 1. Comminuted intertrochanteric fracture of proximal left femur. 2. 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 3. Distended rectosigmoid, likely adynamic ileus. 4. 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 Labs Labs: Laboratory Results - last 24 hr 03/09/24 06:25 WBC 8.8 RBC 3.50 L Hgb 10.0 L Hct 30.8 L MCV 88.0 MCH 28.6 MCHC 32.5 RDW 13.5 Plt Count 124 L MPV 12.1 H Immature Gran % (Auto) 0.3 Neut % (Auto) 86.9 H Lymph % (Auto) 4.9 L [place] % (Auto) 7.8 Eos % (Auto) 0.0 Baso % (Auto) 0.1 L Lymph # (Auto) 0.43 L [place] # (Auto) 0.7 H Eos # (Auto) 0.0 Baso # (Auto) 0.0 Abs Immat Gran (auto) 0.03 Absolute Neuts (auto) 7.6 H Absolute Nucleated RBC 0.000 Nucleated RBC % 0.0 Sodium 142 Potassium 3.2 L Chloride 112 H Carbon Dioxide 27 Anion Gap 3 L BUN 17 Creatinine 0.66 L Estim Creat Clear Calc 82 Estimated GFR > 60 Glucose 134 H Calcium 7.7 L Magnesium 2.6 H Total Bilirubin 1.0 AST 51 ALT 21 Alkaline Phosphatase 55 Total Protein 5.0 L Albumin 2.7 L Quality VTE Prophylaxis VTE prophylaxis: mechanical ordered Hospitalist MIPS Advance Care Plan I have confirmed that the patient's Advanced Care Plan is present, code status is documented, or surrogate decision maker is listed in patient medical record.: Yes Medication Reconciliation I have utilized all available resources to obtain, update and review the patients current medications (includes all prescriptions, OTC, herbals, cannabis, and nutritional supplements).: Yes
[2024-03-09] MEDS: HYDROmorphone HCL INJ (*CRX) 1 MG/ML SYR IV PUSH (10:04)
--- NOTE | 2024-03-09 10:44 | P.PNAN_ITS ---
Anes - Prog Note Post-Op Date/Time: 03/09/24 10:44 Cardiovascular status: other (anemic) Respiratory status: normal Airway patency: baseline Mental status: baseline Post-Op hydration status: normal Vital Signs: Last Vital Signs Temp 98.5 F 03/09/24 10:39 Pulse 64 03/09/24 10:39 Resp 16 03/09/24 10:39 BP 94/54 L 03/09/24 10:39 Pulse Ox 100 03/09/24 10:39 O2 Del Method Room Air 03/09/24 00:00 Pain Score (VAS): 0/10 I/O: Intake & Output 03/08/24 03/09/24 03/09/24 23:59 07:59 15:59 Intake Total 29 0 Output Total 400 300 Balance -371 -300 Laboratory Tests 03/09/24 06:25 03/09/24 06:25 03/09/24 06:25 WBC 8.8 RBC 3.50 L Hgb 10.0 L Hct 30.8 L MCV 88.0 MCH 28.6 MCHC 32.5 RDW 13.5 Plt Count 124 L MPV 12.1 H Immature Gran % (Auto) 0.3 Neut % (Auto) 86.9 H Lymph % (Auto) 4.9 L [place] % (Auto) 7.8 Eos % (Auto) 0.0 Baso % (Auto) 0.1 L Lymph # (Auto) 0.43 L [place] # (Auto) 0.7 H Eos # (Auto) 0.0 Baso # (Auto) 0.0 Abs Immat Gran (auto) 0.03 Absolute Neuts (auto) 7.6 H Absolute Nucleated RBC 0.000 Nucleated RBC % 0.0 Sodium 142 Potassium 3.2 L Chloride 112 H Carbon Dioxide 27 Anion Gap 3 L BUN 17 Creatinine 0.66 L Estim Creat Clear Calc 82 Estimated GFR > 60 Glucose 134 H Calcium 7.7 L Magnesium 2.6 H Total Bilirubin 1.0 AST 51 ALT 21 Alkaline Phosphatase 55 Total Protein 5.0 L Albumin 2.7 L Microbiology 03/06/24 20:55 Urine [place] Urine Culture - Final Post-procedural complaints: none Patient Feedback: Patient satisfied with anesthetic care.
--- NOTE | 2024-03-09 11:09 | P.CONGS_ITS ---
Assessment and Plan Assessment and plan (1) Ileus: Code(s): K56.7 - Ileus, unspecified Status: Acute Assessment and Plan: The patient was admitted with a hip fracture and is postop day 1 following ORIF. He had a CT scan ordered 2 days ago due to his anemia and possibly some abdominal tenderness, which showed distention of the rectosigmoid colon consistent with an adynamic ileus. The patient is moving his bowels and denies having any abdominal pain, nausea, or vomiting. He does not have an acute surgical abdomen. He has multiple factors that could contribute to an ileus, including his recent fracture/surgery, immobility, and hypokalemia. I will replace his potassium today and would recommend keeping his potassium above at least 3.5. Would advance his diet as tolerated and stimulate his bowels if needed. Currently he is having some diarrhea, which could continue to cause issues with electrolyte imbalance, so serial labs should be monitored. If he has issues with tolerating his diet and develops nausea, vomiting, or abdominal pain, then it would be reasonable to re-evaluate with an obstructive series, but this is not present at this time. No indication for surgical management. We will sign off. Please call with any surgical questions or concerns. Mobility will be determined by Ortho due to his recent surgery. (2) Closed intertrochanteric fracture of femur: Qualifiers: Encounter type: initial encounter Fracture alignment: displaced L aterality: left Qualified Code(s): S72.142A - Displaced intertrochanteric fracture of left femur, initial encounter for closed fracture Code(s): S72.143A - Displaced intertrochanteric fracture of unspecified femur, initial encounter for closed fracture Status: Acute (3) Hypokalemia: Code(s): E87.6 - Hypokalemia Status: Acute Assessment and Plan: * Will replace with 40 KCL PO now. Continue to trend labs and replace as needed. (4) H/O heart valve replacement with bioprosthetic valve: Code(s): Z95.3 - Presence of xenogenic heart valve Status: Acute (5) CHF (congestive heart failure): Code(s): I50.9 - Heart failure, unspecified Status: Acute (6) Pacemaker: Code(s): Z95.0 - Presence of cardiac pacemaker Status: Acute (7) Anemia: Code(s): D64.9 - Anemia, unspecified Status: Acute Plan I have discussed the patient's case and plan of care with Dr. Lackey. History of Present Illness Consult details Consult date: 03/09/24 Reason for consult: other (Ileus) Requesting physician: Thierry Soriano MD Narrative: This is an 83-year-old man with PMH significant for aortic stenosis s/p aortic valve replacement, chronic anticoagulation for history of PE/DVT, CAD, pacemaker, Parkinson's disease, and multiple other medical problems, who was admitted on 03/04/24 for left femur fracture following a ground level fall. His anticoagulation was held and he was monitored while planning for surgery once his Eliquis wear off. His hemoglobin did drop to 7.4 from 12.8 on admission, which prompted blood transfusion. Due to anemia and tenderness on exam, he had a CT chest abdomen pelvis on 03/07/2024 that showed no bleeding, but findings of distention of the rectosigmoid, likely adynamic ileus. His hemoglobin has remained stable following his transfusion and he eventually had an ORIF on 03/08/2024. Our service is now being consulted for the findings of an ileus on his CT. He is seen on the medical floor with his at the bedside, who assists in providing history with his permission. He is lying in bed and sleeping after recently receiving pain medication. His states he has not been complaining of any abdominal pain or nausea. No vomiting. Although, he has not had anything to eat or drink since surgery. The patient denies any abdominal pain or nausea at this time. He does feel slightly bloated. He has had at least 2 bowel movements yesterday and another this morning. They are reportedly loose stools. No previous abdominal surgeries. Denies ever having a colonoscopy. Also to note, his labs show his potassium is low at 3.2 today. Review of Systems 2 Review of Systems: All systems reviewed & are unremarkable except as noted in HPI and below PMFSH Past Medical History Medical History Pulmonary thrombosis Pacemaker Alcoholism Parkinsons disease Skin cancer Fatty liver Skull fracture Arthritis GERD (gastroesophageal reflux disease) Pneumonia Pulmonary embolism DVT (deep venous thrombosis) Seasonal allergies Surgical History Surgical History H/O heart valve replacement with bioprosthetic valve H/O local excision of skin lesion History of tonsillectomy Family History Family History Father Congestive heart failure Heart disease Mother Heart disease Breast cancer Sibling Breast cancer Hx of CABG Social History Social History Smoking packs per day: 1 Smoking cigarettes per day: 20.0 Years smoked: 20 Smoking pack-years: 20.00 Smoking status: Former smoker Second hand tobacco smoke exposure: Yes Additional smoking assessment comments: quit in 1971 Alcohol intake: never Drinks per week: 7 Substance use: never Substance use type: does not use Do You Feel Safe in your Home?: Yes Lack of Transportation: No Lack of Food: Never True Current Housing: I Have Housing Concerned About Future Housing: No Difficulty Paying Gas/Electric Bills: No Difficulty Paying for Meds: No Currently Unemployed: No Education: Master's Degree or Higher Difficulty w/ Childcare or Family Care: YES Living arrangements: with family Additional living arrangements comments: Occupation/Education: retired Gender identity (if verbalized by the patient): Male Sexual Orientation (if Verbalized by the Patient): Straight or Heterosexual Spiritual care concerns: No Agree to blood products: Yes Meds Home Medications and Allergies Home Medications ?Medication ?Instructions ?Recorded ?Confirmed ?Type atorvastatin 80 mg tablet 80 mg PO HS #30 tabs 05/27/19 03/04/24 Rx apixaban 5 mg tablet 5 mg PO BID 05/23/21 03/04/24 History famotidine 10 mg tablet 10 mg PO DAILY 05/23/21 03/04/24 History folic acid 1 mg tablet 1 mg PO DAILY 05/23/21 03/04/24 History furosemide 20 mg tablet 10 mg PO QAM 05/23/21 03/04/24 History multivitamin-iron 9 mg-folic acid 1 tablet PO DAILY 05/23/21 03/04/24 History 400 mcg-calcium and minerals tablet (Thera-M) sacubitril 24 mg-valsartan 26 mg 1 tablet PO BID 05/23/21 03/04/24 History tablet carvedilol 3.125 mg tablet 3.125 mg PO ONCE 12/24/21 03/04/24 History loperamide 2 mg capsule (Imodium 2 mg PO Q6H PRN diarrhea 12/24/21 03/04/24 History A-D) hyoscyamine sulfate 0.125 mg 0.125 mg sublingual QID PRN 03/13/22 03/04/24 Rx sublingual tablet dyspepsia #120 tabs sacubitril 24 mg-valsartan 26 mg 1 tablet PO BID 03/04/24 03/04/24 History tablet (Entresto) Allergies Allergy/AdvReac Type Severity Reaction Status Date / Time No Known Allergies Allergy Unknown Verified 10/23/22 11:41 Vital Signs Vital Signs - 24 hr 03/08/24 14:00 03/08/24 22:00 03/08/24 22:15 Temperature 99.8 F H 97.5 F L Pulse Rate 79 98 88 Respiratory Rate 16 16 18 Blood Pressure 115/46 L 122/92 H 97/65 L Pulse Oximetry 96 97 97 Oxygen Delivery Room Air Room Air 03/08/24 22:30 03/08/24 22:45 03/08/24 22:59 Temperature 97.2 F L Pulse Rate 88 76 79 Respiratory Rate 14 16 18 Blood Pressure 112/65 109/62 113/49 L Pulse Oximetry 96 95 98 Oxygen Delivery Room Air Room Air 03/08/24 23:30 03/09/24 00:00 03/09/24 00:00 Temperature 96.9 F L Pulse Rate 72 72 70 Respiratory Rate 14 14 Blood Pressure 106/53 L Pulse Oximetry 100 100 Oxygen Delivery Room Air 03/09/24 01:00 03/09/24 04:00 03/09/24 04:44 Temperature 97.2 F L 97.2 F L Pulse Rate 71 85 50 L Respiratory Rate 17 14 Blood Pressure 112/59 L 106/49 L Pulse Oximetry 98 98 Oxygen Delivery 03/09/24 10:39 Temperature 98.5 F Pulse Rate 64 Respiratory Rate 16 Blood Pressure 94/54 L Pulse Oximetry 100 Oxygen Delivery Exam 2 Const: General: no acute distress and tired appearing Nutritional Appearance: average body habitus Orientation/consciousness: patient oriented x3 HENMT: Head: normocephalic and atraumatic Ears: hearing grossly normal bilaterally Mouth: Yes moist mucous membranes Eyes: General: appearance normal, both eyes and all related structures P upils: Equal, round and reactive pupils present Neck: Neck: normal visual inspection and full ROM Resp: Effort & Inspection: no respiratory distress Auscultation: clear to auscultation bilaterally Cardio: Rate: regular rate Rhythm: regular rhythm GI: Inspection: non-distended, no scars, no visible herniation and other (there are two small superficial abrasions or skin tears in the LLQ) GI Palp: Yes Soft to palpation, No Tenderness to palpation present (GI), No Guarding due to palpation present (GI), Yes No hepatosplenomegaly present and No Rebound tenderness present Auscultation: bowels sounds not normal Rectal Exam: d eferred Skin: General skin exam: normal color and other (dressing dry and intact over left hip) Neuro: General: moves all extremities and no focal motor deficits Speech: n ormal speech Extrem: General: normal to inspection and edema (edema around left hip and upper leg) Psych: Mental Status: mental status grossly normal Attitude: cooperative Insight: Fair insight present (Psych) Judgement: Fair judgement present (Psych) Results Labs 03/09/24 06:25 03/09/24 06:25 Labs: Abnormal lab results 03/09/24 Range/Units 06:25 RBC 3.50 L (4.6-6.20) M/mm3 Hgb 10.0 L (14.0-18.0) g/dL Hct 30.8 L (42.0-52.0) % Plt Count 124 L (150-375) k/mm3 MPV 12.1 H (7.4-10.4) fl Neut % (Auto) 86.9 H (45.5-73.1) % Lymph % (Auto) 4.9 L (18.3-44.2) % Baso % (Auto) 0.1 L (0.2-1.2) % Lymph # (Auto) 0.43 L (0.9-3.2) K/mm3 [place] # (Auto) 0.7 H (0.1-0.6) K/mm3 Absolute Neuts (auto) 7.6 H (1.3-6.7) K/mm3 Potassium 3.2 L (3.4-5.0) mmol/L Chloride 112 H (98-107) mmol/L Anion Gap 3 L (4-12) mmol/L Creatinine 0.66 L (0.7-1.3) mg/dL Glucose 134 H (65-110) mg/dL Calcium 7.7 L (8.4-10.2) mg/dL Magnesium 2.6 H (1.6-2.3) mg/dL Total Protein 5.0 L (6.3-8.2) g/dL Albumin 2.7 L (3.5-5.1) g/dL Diabetes panel 03/09/24 Range/Units 06:25 Sodium 142 (137-145) mmol/L Potassium 3.2 L (3.4-5.0) mmol/L Chloride 112 H (98-107) mmol/L Carbon Dioxide 27 (22-30) mmol/L BUN 17 (9-20) mg/dL Creatinine 0.66 L (0.7-1.3) mg/dL Glucose 134 H (65-110) mg/dL Calcium 7.7 L (8.4-10.2) mg/dL AST 51 (17-59) U/L ALT 21 (6-50) U/L Alkaline Phosphatase 55 (38-126) U/L Total Protein 5.0 L (6.3-8.2) g/dL Albumin 2.7 L (3.5-5.1) g/dL Calcium panel 03/09/24 Range/Units 06:25 Calcium 7.7 L (8.4-10.2) mg/dL Albumin 2.7 L (3.5-5.1) g/dL Pituitary panel 03/09/24 Range/Units 06:25 Sodium 142 (137-145) mmol/L Potassium 3.2 L (3.4-5.0) mmol/L Chloride 112 H (98-107) mmol/L Carbon Dioxide 27 (22-30) mmol/L BUN 17 (9-20) mg/dL Creatinine 0.66 L (0.7-1.3) mg/dL Glucose 134 H (65-110) mg/dL Calcium 7.7 L (8.4-10.2) mg/dL Adrenal panel 03/09/24 Range/Units 06:25 Sodium 142 (137-145) mmol/L Potassium 3.2 L (3.4-5.0) mmol/L Chloride 112 H (98-107) mmol/L Carbon Dioxide 27 (22-30) mmol/L BUN 17 (9-20) mg/dL Creatinine 0.66 L (0.7-1.3) mg/dL Glucose 134 H (65-110) mg/dL Calcium 7.7 L (8.4-10.2) mg/dL Total Bilirubin 1.0 (0.2-1.3) mg/dL AST 51 (17-59) U/L ALT 21 (6-50) U/L Alkaline Phosphatase 55 (38-126) U/L Total Protein 5.0 L (6.3-8.2) g/dL Albumin 2.7 L (3.5-5.1) g/dL All other labs normal. Imaging Additional studies: ITS Impressions Head CT 03/04/24 19:10 IMPRESSION: No acute intracranial process. Chest X-Ray 03/04/24 19:12 IMPRESSION: No acute cardiopulmonary process. Hip/Pelvis X-Ray 03/04/24 19:15 IMPRESSION: Comminuted intertrochanteric fracture of the left femur. Chest/Abdomen/Pelvis CT 03/07/24 13:10 IMPRESSION: 1. Comminuted intertrochanteric fracture of proximal left femur. 2. 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 3. Distended rectosigmoid, likely adynamic ileus. 4. 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
[2024-03-09] MEDS: LINEZOLID 600 MG TABLET PO (17:00)
[2024-03-09] MEDS: POTASSIUM CHLORIDE 20 MEQ PACKET (FOR LIQUID) 40 MEQ PO (22:00)
[2024-03-09] MEDS: POTASSIUM CHLORIDE 20 MEQ PACKET (FOR LIQUID) 60 MEQ PO (22:03)
[2024-03-09] MEDS: LOPERAMIDE HCL 2 MG CAPSULE PO (22:24)
[2024-03-09] MEDS: ACETAMINOPHEN 500 MG TABLET PO (22:24)
[2024-03-10] VITALS (14 sets, daily range): BP systolic 78–112; BP diastolic 42–72; PULSE 61–87; RESP 18–20; TEMP 36.6–37; O2SAT 93–100; BMI 10.0
--- NOTE | 2024-03-10 07:00 | P.CONUR_ITS ---
Assessment and Plan Assessment and plan (1) Genital edema, male: Code(s): N50.89 - Other specified disorders of the male genital organs Status: Acute Assessment and Plan: * Marked dependent edema of external genitalia * I've asked the nursing staff to elevate his scrotum while in bed and to place a jockstrap, if possible * Do not remove Villeda catheter in till the edema has improved and he is ambulatory Urology Consult Note HPI Date Seen: 03/10/24 Requesting Physician: Matty Soliz MD Primary Care Provider: Georgiana Tripp DO Consult Narrative Narrative: Eren Kulkarni is a 83 year old male a status post open reduction internal fixation of fractured hip. Postoperatively he has had an indwelling catheters been noted to have marked genital edema. Patient is not really awake/ alert and able to supply history this morning but was amenable to examination Review of Systems 2 Review of Systems: ROS unobtainable: Yes unobtainable due to mental status PMFSH Past Medical History Medical History Pulmonary thrombosis Pacemaker Alcoholism Parkinsons disease Skin cancer Fatty liver Skull fracture Arthritis GERD (gastroesophageal reflux disease) Pneumonia Pulmonary embolism DVT (deep venous thrombosis) Seasonal allergies Surgical History Surgical History H/O heart valve replacement with bioprosthetic valve H/O local excision of skin lesion History of tonsillectomy Family History Family History Father Congestive heart failure Heart disease Mother Heart disease Breast cancer Sibling Breast cancer Hx of CABG Social History Social History Smoking packs per day: 1 Smoking cigarettes per day: 20.0 Years smoked: 20 Smoking pack-years: 20.00 Smoking status: Former smoker Second hand tobacco smoke exposure: Yes Additional smoking assessment comments: quit in 1971 Alcohol intake: never Drinks per week: 7 Substance use: never Substance use type: does not use Do You Feel Safe in your Home?: Yes Lack of Transportation: No Lack of Food: Never True Current Housing: I Have Housing Concerned About Future Housing: No Difficulty Paying Gas/Electric Bills: No Difficulty Paying for Meds: No Currently Unemployed: No Education: Master's Degree or Higher Difficulty w/ Childcare or Family Care: YES Living arrangements: with family Additional living arrangements comments: Occupation/Education: retired Gender identity (if verbalized by the patient): Male Sexual Orientation (if Verbalized by the Patient): Straight or Heterosexual Spiritual care concerns: No Agree to blood products: Yes Meds Home Medications and Allergies Home Medications ?Medication ?Instructions ?Recorded ?Confirmed ?Type atorvastatin 80 mg tablet 80 mg PO HS #30 tabs 05/27/19 03/04/24 Rx apixaban 5 mg tablet 5 mg PO BID 05/23/21 03/04/24 History famotidine 10 mg tablet 10 mg PO DAILY 05/23/21 03/04/24 History folic acid 1 mg tablet 1 mg PO DAILY 05/23/21 03/04/24 History furosemide 20 mg tablet 10 mg PO QAM 05/23/21 03/04/24 History multivitamin-iron 9 mg-folic acid 1 tablet PO DAILY 05/23/21 03/04/24 History 400 mcg-calcium and minerals tablet (Thera-M) sacubitril 24 mg-valsartan 26 mg 1 tablet PO BID 05/23/21 03/04/24 History tablet carvedilol 3.125 mg tablet 3.125 mg PO ONCE 12/24/21 03/04/24 History loperamide 2 mg capsule (Imodium 2 mg PO Q6H PRN diarrhea 12/24/21 03/04/24 History A-D) hyoscyamine sulfate 0.125 mg 0.125 mg sublingual QID PRN 03/13/22 03/04/24 Rx sublingual tablet dyspepsia #120 tabs sacubitril 24 mg-valsartan 26 mg 1 tablet PO BID 03/04/24 03/04/24 History tablet (Entresto) Allergies Allergy/AdvReac Type Severity Reaction Status Date / Time No Known Allergies Allergy Unknown Verified 10/23/22 11:41 Vital Signs Vital Signs - 24 hr 03/09/24 08:00 03/09/24 10:39 03/09/24 15:27 Temperature 98.5 F 99.2 F Pulse Rate 64 61 Respiratory Rate 16 16 Blood Pressure 94/54 L 100/52 L Pulse Oximetry 100 94 Oxygen Delivery Room Air 03/09/24 15:48 03/09/24 18:45 03/09/24 20:00 Temperature 99.0 F Pulse Rate 73 70 Respiratory Rate 16 18 Blood Pressure 90/40 L Pulse Oximetry 94 98 Oxygen Delivery Room Air Room Air 03/09/24 20:00 03/09/24 20:44 03/10/24 00:00 Temperature 98.5 F Pulse Rate 77 70 77 Respiratory Rate 18 Blood Pressure 80/40 L Pulse Oximetry 98 Oxygen Delivery 03/10/24 00:42 03/10/24 01:00 03/10/24 04:00 Temperature 98.3 F Pulse Rate 65 87 Respiratory Rate 20 Blood Pressure 78/42 L 110/58 L Pulse Oximetry 93 Oxygen Delivery 03/10/24 05:46 Temperature 98.2 F Pulse Rate 61 Respiratory Rate 20 Blood Pressure 102/48 L Pulse Oximetry 100 Oxygen Delivery Exam 2 Const: General: no acute distress Resp: Effort & Inspection: normal respiratory effort GI: Inspection: non-distended GI Palp: No abdominal tenderness and No Guarding due to palpation present (GI) Auscultation: normal bowel sounds : General: Yes other ( marked penile shaft and scrotal dependent edema) Urinary Catheter: Urinary Catheter: patent and draining Results Labs 03/09/24 06:25 03/09/24 06:25 Labs: Short CBC 03/09/24 Range/Units 06:25 WBC 8.8 (4.5-10.0) K/mm3 Hgb 10.0 L (14.0-18.0) g/dL Hct 30.8 L (42.0-52.0) % Plt Count 124 L (150-375) k/mm3 BMP 03/09/24 06:25 Sodium 142 Potassium 3.2 L Chloride 112 H Carbon Dioxide 27 BUN 17 Creatinine 0.66 L Glucose 134 H Calcium 7.7 L Liver Function 03/09/24 Range/Units 06:25 Total Bilirubin 1.0 (0.2-1.3) mg/dL AST 51 (17-59) U/L ALT 21 (6-50) U/L Alkaline Phosphatase 55 (38-126) U/L Albumin 2.7 L (3.5-5.1) g/dL
[2024-03-10 07:03] LABS: Hematocrit 25.3 % (42.0-52.0); Hemoglobin 8.3 g/dL (14.0-18.0); Mean Corpuscular HGB Conc 32.8 g/dl (32-36); Mean Corpuscular Hemoglobin 28.4 pg (26-34); Mean Corpuscular Volume 86.6 fl (80-100); Mean Platelet Volume 12.4 fl (7.4-10.4); Platelet Count Result 104 k/mm3 (150-375); Red Blood Count 2.92 M/mm3 (4.6-6.20); Red Cell Distribution Width 13.5 % (11.5-14.5); White Blood Count 5.9 K/mm3 (4.5-10.0)
[2024-03-10 07:10] LABS: Alanine Aminotransferase 24 U/L (6-50); Albumin Level 2.3 g/dL (3.5-5.1); Alkaline Phosphatase 51 U/L (38-126); Anion Gap 4 mmol/L (4-12); Aspartate Amino Transferase 61 U/L (17-59); Bilirubin,Total 0.9 mg/dL (0.2-1.3); Blood Urea Nitrogen 25 mg/dL (9-20); Carbon Dioxide 24 mmol/L (22-30); Chloride 109 mmol/L (98-107); Estimated CRCL calculation 63 ml/min; Estimated Glomerular Filt Rate > 60; Glucose 114 mg/dL (65-110); Potassium 2.9 mmol/L (3.4-5.0); Sodium 137 mmol/L (137-145)
[2024-03-10] MEDS: PANTOPRAZOLE SODIUM IV 40 MG VIAL IV PUSH ×2 (08:23→21:36)
[2024-03-10] MEDS: POTASSIUM CHLORIDE 20 MEQ PACKET (FOR LIQUID) 80 MEQ PO (08:23)
[2024-03-10] MEDS: HEPARIN SODIUM 5,000 UNITS/ML VIAL 5000 UNITS SUB-Q ×2 (08:24→21:36)
[2024-03-10] MEDS: oxyCODONE/ACETAMINOPHEN (*CRX) 5-325 MG TABLET 1 TABLET PO ×2 (08:24→13:09)
[2024-03-10] MEDS: FUROSEMIDE 10 MG TABLET PO (08:25)
[2024-03-10] MEDS: carvediloL 3.125 MG TABLET PO (08:26)
[2024-03-10] MEDS: LINEZOLID 600 MG TABLET PO ×2 (08:26→16:05)
[2024-03-10] MEDS: FOLIC ACID 1 MG TABLET PO (08:26)
[2024-03-10] MEDS: THERAPEUTIC MULTIVITAMINS/MINERALS TAB (*BKC) 1 TABLET PO (08:26)
[2024-03-10 11:08] LABS: Magnesium 2.6 mg/dL (1.6-2.3); Potassium 3.8 mmol/L (3.4-5.0)
[2024-03-10 11:58] LABS: Hematocrit 30.8 % (42.0-52.0)
[2024-03-10 12:04] LABS: Potassium 3.9 mmol/L (3.4-5.0)
--- NOTE | 2024-03-10 12:35 | P.PNIM_ITS ---
Progress Note: A&P Assessment and Plan (1) Ground-level fall: Code(s): W18.30XA - Fall on same level, unspecified, initial encounter Status: Acute (2) Closed intertrochanteric fracture of femur: Qualifiers: Encounter type: initial encounter Fracture alignment: displaced Laterality: left Qualified Code(s): S72.142A - Displaced intertrochanteric fracture of left femur, initial encounter for closed fracture Code(s): S72.143A - Displaced intertrochanteric fracture of unspecified femur, initial encounter for closed fracture Status: Acute (3) Alcoholism: Code(s): F10.20 - Alcohol dependence, uncomplicated Status: Acute Assessment and Plan: Delete (4) Cardiomyopathy: Code(s): I42.9 - Cardiomyopathy, unspecified Status: Acute (5) Atrial fibrillation with RVR: Code(s): I48.91 - Unspecified atrial fibrillation Status: Acute (6) Pulmonary embolism: Qualifiers: Acute cor pulmonale presence: without acute cor pulmonale Chronicity: acute Pulmonary embolism type: unspecified Qualified Code(s): I26.99 - Other pulmonary embolism without acute cor pulmonale Code(s): I26.99 - Other pulmonary embolism without acute cor pulmonale Status: Acute (7) Parkinsons disease: Code(s): G20 - Parkinson's disease Status: Acute (8) Thrombocytopenia: Code(s): D69.6 - Thrombocytopenia, unspecified Status: Acute (9) Anemia: Code(s): D64.9 - Anemia, unspecified Status: Acute Plan This is an 83-year-old male presented to the ED/12/17 after a ground level fall mechanical while using his walker. Patient was unable to get back up. No loss of consciousness. Hip pain. Workup revealed comminuted intertrochanteric fracture of left femur. Patient was admitted for further treatment. CT head was negative. Chest x-ray with no acute cardiopulmonary process. Orthopedic was consulted. Planned left hip cephalomedullary nailing. Anemia been down to 7.4 received 2 unit of transfusion. Hemoglobin of 10 today. No signs of bleeding. Could be hemodilution now as he has received 10 L +since admission. CTA chest abdomen pelvis with no bleeding. Findings of adynamic ileus Fall ORIF femur intertrochanteric fracture with cephalomedullary nail, left on 03/08. Scrotal redness US shows possible cellulitis Ordered Zyvox and continue ceftriaxone Adynamic ileus Having bowel movement now. Advance diet as tolerate Surgery consulted Continue to monitor Alcoholism History of alcoholism has not drank since 5 years. 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 Congestive heart failure with reduced ejection fracture line coronary artery disease EF 30-35% in the past last echo 2021 with EF% Abdominal aortic aneurysm AFib chronic rate controlled anticoagulated which is on hold for the surgery Parkinson's disease History of DVT/PE on chronic anticoagulation Acute on Chronic anemia. Received 2 U PRBC on 03/07 CT chest abdomen pelvis reviewed Ferritin 46.5. B12 731 more than 20. Check stool for occult blood. Thrombocytopenia improved fluctuating upon review previous labs. Likely due to chronic alcoholism. DVT prophylaxis on SCDs. Used to be on apixaban prior to admission Code status full code Subjective Date/time seen: 03/10/24 12:35 Interval history: Continue to feel better. Scrotal redness getting better but still swollen. Urology following. No signs of bowel obstruction. Hemoglobin dropped 10 to 8.3 ,possibly due to dilutional anemia. Replaced potassium. Review of Systems Review of Systems: Fall, left hip pain with movement, unable to bear weight. All systems reviewed & are unremarkable except as noted in HPI and below Exam Narrative: GENERAL APPEARANCE: Appears to be in no acute distress. HEAD: normocephalic atraumatic EYES: PERRL, EOMI. Vision grossly intact. CARDIAC: Normal S1/S2. Rhythm is regular. No murmurs, rubs, or gallops. No cyanosis or pallor. LUNGS: Clear to auscultation without rales, rhonchi, wheezing or diminished breath sounds. Respirations even and unlabored. ABDOMEN: BS positive x 4 quadrants. Soft, mildly distended, nontender. No guarding or rebound. MSK: Distal nv sensation intact blle. Pain to palpation of left hip. PERIPHERAL VASCULAR: Peripheral pulses palpable. Normal perfusion, cap refill <2 seconds. No edema. NEURO: Follows commands. No focal deficits. SKIN: [place] without lesions or eruptions. PSYCH: Stable, no paranoia or delusional thinking. Const: General: comfortable, no acute distress, well developed, alert, awake, average body habitus and thin Nutritional Appearance: average body habitus and thin Orientation/consciousness: patient oriented x3 Other: Well-appearing HENMT: Head: normal to inspection, normocephalic and atraumatic Ears: hearing grossly normal bilaterally Face/Nose/Sinus: normal facial exam Face and sinus: normal facial exam Eyes: General: appearance normal, both eyes and all related structures Pupils: Equal, round and reactive pupils present EOM: EOMs intact bilaterally Neck: Neck: full ROM, no lymphadenopathy and no JVD Thyroid: thyroid normal Lymphatic: no lymphadenopathy noted Resp: Effort & Inspection: normal respiratory effort and able to speak in complete sentences Auscultation: clear to auscultation bilaterally Cardio: Jugular venous distension: no JVD Rate: regular rate Rhythm: regular rhythm Heart sounds: S1 normal heart sound present and S2 normal heart sound present : General: Yes deferred Skin: Rashes: no rashes Wounds: no wounds Neuro: General: patient oriented x3, CN's II-XI intact bilaterally and Unable to assess gait Cranial nerves: Yes CN's II-XII intact bilaterally and Yes Equal, round and reactive pupils present Cognition (Neuro): normal cognition Speech: normal speech Gait exam (Neuro): Unable to assess gait Motor exam (neuro): 5/5 motor strength present throughout Extrem: Other: Left leg is externally rotated and shortened Objective Data Vital Signs Vital Signs: Vital Signs - 24 hr 03/09/24 15:27 03/09/24 15:48 03/09/24 18:45 Temperature 99.2 F 99.0 F Pulse Rate 61 73 Respiratory Rate 16 16 Blood Pressure 100/52 L 90/40 L Pulse Oximetry 94 94 Oxygen Delivery Room Air 03/09/24 20:00 03/09/24 20:00 03/09/24 20:44 Temperature 98.5 F Pulse Rate 70 77 70 Respiratory Rate 18 18 Blood Pressure 80/40 L Pulse Oximetry 98 98 Oxygen Delivery Room Air 03/10/24 00:00 03/10/24 00:42 03/10/24 01:00 Temperature 98.3 F Pulse Rate 77 65 Respiratory Rate 20 Blood Pressure 78/42 L 110/58 L Pulse Oximetry 93 Oxygen Delivery 03/10/24 04:00 03/10/24 05:46 03/10/24 08:00 Temperature 98.2 F Pulse Rate 87 61 Respiratory Rate 20 Blood Pressure 102/48 L Pulse Oximetry 100 Oxygen Delivery Room Air 03/10/24 08:02 03/10/24 08:26 03/10/24 12:00 Temperature Pulse Rate 78 61 82 Respiratory Rate Blood Pressure Pulse Oximetry Oxygen Delivery Intake/Output Intake/Output: Intake & Output 03/07/24 03/08/24 03/09/24 03/10/24 23:59 23:59 23:59 23:59 Intake Total 1750 1029 1780 577 Output Total 1000 700 600 200 Balance 086 064 1265 377 Meds/Results Medications: Active Medications Generic Name Dose Route Start Last Admin Trade Name Freq PRN Reason Stop Dose Admin Acetaminophen 500 mg 03/08/24 22:59 03/09/24 22:24 Acetaminophen 500 Mg Tablet PO 500 mg Q6H PRN Administration Pain Rated 1-3 Atorvastatin Calcium 80 mg 03/05/24 21:00 03/09/24 22:19 Atorvastatin 40 Mg Tablet PO Not Given HS YARA Carvedilol 3.125 mg 03/05/24 09:00 03/10/24 08:26 Carvedilol 3.125 Mg Tablet PO 3.125 mg Q12HR YARA Administration Folic Acid 1 mg 03/05/24 09:00 03/10/24 08:26 Folic Acid 1 Mg Tablet PO 1 mg DAILY YARA Administration Furosemide 10 mg 03/05/24 09:00 03/10/24 08:25 Furosemide 10 Mg Tablet PO 10 mg QAM YARA Administration Heparin Sodium (Porcine) 5,000 units 03/05/24 09:00 03/10/24 08:24 Heparin Sodium 5,000 Units/Ml Vial SUB-Q 5,000 units Q12HR YARA Administration Hydromorphone HCl 1 mg 03/08/24 22:59 03/09/24 10:04 Hydromorphone Hcl Inj (*Crx) 1 Mg/Ml Syr IV PUSH 1 mg Q2H PRN Administration Breakthrough Pain Rated 7-10 or NPO Hydromorphone HCl 0.5 mg 03/08/24 22:59 Hydromorphone Hcl Inj (*Crx) 1 Mg/Ml Syr IV PUSH Q2H PRN Breakthrough Pain Rated 4-6 or NPO Hydroxyzine Pamoate 50 mg 03/08/24 22:59 Hydroxyzine Pamoate 25 Mg Capsule PO Q4H PRN Itching Hyoscyamine 0.125 mg 03/05/24 09:54 Hyoscyamine Sulfate 0.125 Mg Tablet SUBLINGUAL QID PRN dyspepsia Ceftriaxone Sodium 1 gm in 50 mls @ 100 mls/hr 03/06/24 16:00 03/09/24 19:30 Rocephin 1 Gm/Ns 50 Ml IVPB Infused Q24H YARA Infusion Magnesium Sulfate/Dextrose 1 gm in 100 mls @ 100 mls/hr 03/07/24 16:54 Magnesium Sulf 1 Gm/D5w 100 Ml IVPB ONCE PRN Magnesium 1gm IV x one for serum magnesium <1.8. Linezolid 600 mg 03/09/24 17:00 03/10/24 08:26 Linezolid 600 Mg Tablet PO 600 mg BID YARA Administration Loperamide HCl 2 mg 03/05/24 09:54 03/09/24 22:24 Loperamide Hcl 2 Mg Capsule PO 2 mg Q6H PRN Administration diarrhea Multivitamins/Calcium 1 tablet 03/05/24 09:00 03/10/24 08:26 Therapeutic Multivitamins/Minerals Tab (*Bkc) PO 1 tablet DAILY YARA Administration Naloxone HCl 0.1 mg 03/08/24 22:59 Naloxone Hcl 0.4 Mg/Ml Vial IV PUSH Q2M PRN Opiate Reversal Ondansetron HCl 4 mg 03/08/24 22:59 Ondansetron Inj 4 Mg/2 Ml Vial IV PUSH Q4H PRN Nausea And Vomiting Oxycodone/Acetaminophen 1 tablet 03/08/24 22:59 03/10/24 08:24 Oxycodone/Acetaminophen (*Crx) 5-325 Mg Tablet PO 1 tablet Q4H PRN Administration Pain Rated 4-6 Oxycodone/Acetaminophen 1 tab 03/08/24 22:59 Oxycodone/Acetaminophen (*Crx) 10-325 Mg Tablet PO Q6H PRN Pain Rated 7-10 Pantoprazole Sodium 40 mg 03/08/24 21:00 03/10/24 08:23 Pantoprazole Sodium Iv 40 Mg Vial IV PUSH 40 mg Q12HR YARA Administration Polyethylene Glycol 17 gm 03/09/24 09:00 03/10/24 08:27 Polyethylene Glycol 3350 17 Gm Powd.Pack PO Not Given QAM YARA Sacubitril/Valsartan 1 tab 03/05/24 09:00 03/10/24 08:27 Sacubitril/Valsartan 24-26 Mg Tablet PO Not Given Q12HR YARA Senna/Docusate Sodium 2 tab 03/09/24 09:00 03/10/24 06:27 Senna/Docusate Sodium Tablet PO Not Given Q12HR YARA Radiology Results: ITS Impressions Head CT 03/04/24 19:10 IMPRESSION: No acute intracranial process. Chest X-Ray 03/04/24 19:12 IMPRESSION: No acute cardiopulmonary process. Hip/Pelvis X-Ray 03/04/24 19:15 IMPRESSION: Comminuted intertrochanteric fracture of the left femur. Chest/Abdomen/Pelvis CT 03/07/24 13:10 IMPRESSION: 1. Comminuted intertrochanteric fracture of proximal left femur. 2. 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 3. Distended rectosigmoid, likely adynamic ileus. 4. 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 Scrotum Ultrasound 03/09/24 14:32 IMPRESSION: No evidence of torsion or epididymo-orchitis. Bilateral hydroceles. Left epididymal cyst. Inflammatory changes around the testicles which are most likely suggestive of cellulitis. Follow-up advised. Otherwise, normal testicular ultrasound. Labs Labs: Laboratory Results - last 24 hr 03/10/24 03/10/24 03/10/24 06:01 10:45 11:48 WBC 5.9 RBC 2.92 L Hgb 8.3 L 10.0 L Hct 25.3 L 30.8 L MCV 86.6 MCH 28.4 MCHC 32.8 RDW 13.5 Plt Count 104 L MPV 12.4 H Sodium 137 Potassium 2.9 L 3.8 3.9 Chloride 109 H Carbon Dioxide 24 Anion Gap 4 BUN 25 H Creatinine 0.88 Estim Creat Clear Calc 63 Estimated GFR > 60 Glucose 114 H Calcium 7.0 L Magnesium 2.6 H Total Bilirubin 0.9 AST 61 H ALT 24 Alkaline Phosphatase 51 Total Protein 5.0 L Albumin 2.3 L Quality VTE Prophylaxis VTE prophylaxis: mechanical ordered Hospitalist MIPS Advance Care Plan I have confirmed that the patient's Advanced Care Plan is present, code status is documented, or surrogate decision maker is listed in patient medical record.: Yes Medication Reconciliation I have utilized all available resources to obtain, update and review the patients current medications (includes all prescriptions, OTC, herbals, cannabis, and nutritional supplements).: Yes
[2024-03-10] MEDS: ATORVASTATIN 40 MG TABLET 80 MG PO (21:35)
[2024-03-10] MEDS: SENNA/DOCUSATE SODIUM TABLET 2 TAB PO (21:36)
[2024-03-11] VITALS (10 sets, daily range): BP systolic 95–117; BP diastolic 46–59; PULSE 72–107; RESP 18–20; TEMP 36.7–37.3; O2SAT 94–99
[2024-03-11 07:23] LABS: Hemoglobin 7.9 g/dL (14.0-18.0); Immature Platelet Fraction Pct 4.3 % (0.9-11.2); Mean Corpuscular HGB Conc 32.9 g/dl (32-36); Mean Corpuscular Hemoglobin 28.6 pg (26-34); Mean Platelet Volume 11.5 fl (7.4-10.4); Platelet Count Result 102 k/mm3 (150-375); Red Blood Count 2.76 M/mm3 (4.6-6.20); Red Cell Distribution Width 13.4 % (11.5-14.5); White Blood Count 4.7 K/mm3 (4.5-10.0)
[2024-03-11 07:31] LABS: Alanine Aminotransferase 25 U/L (6-50); Albumin Level 2.2 g/dL (3.5-5.1); Alkaline Phosphatase 55 U/L (38-126); Anion Gap 2 mmol/L (4-12); Aspartate Amino Transferase 58 U/L (17-59); Bilirubin,Total 1.1 mg/dL (0.2-1.3); Blood Urea Nitrogen 19 mg/dL (9-20); Carbon Dioxide 25 mmol/L (22-30); Chloride 109 mmol/L (98-107); Estimated CRCL calculation 79 ml/min; Estimated Glomerular Filt Rate > 60; Glucose 115 mg/dL (65-110); Potassium 3.1 mmol/L (3.4-5.0); Sodium 136 mmol/L (137-145)
[2024-03-11] MEDS: carvediloL 3.125 MG TABLET PO ×2 (08:22→20:38)
[2024-03-11] MEDS: FOLIC ACID 1 MG TABLET PO (08:22)
[2024-03-11] MEDS: THERAPEUTIC MULTIVITAMINS/MINERALS TAB (*BKC) 1 TABLET PO (08:22)
[2024-03-11] MEDS: HEPARIN SODIUM 5,000 UNITS/ML VIAL 5000 UNITS SUB-Q ×2 (08:23→20:38)
[2024-03-11] MEDS: LINEZOLID 600 MG TABLET PO ×2 (08:23→20:38)
[2024-03-11] MEDS: SENNA/DOCUSATE SODIUM TABLET 2 TAB PO ×2 (08:23→20:39)
[2024-03-11] MEDS: FUROSEMIDE 10 MG TABLET PO (08:24)
[2024-03-11] MEDS: PANTOPRAZOLE SODIUM IV 40 MG VIAL IV PUSH ×2 (08:25→20:41)
[2024-03-11] MEDS: oxyCODONE/ACETAMINOPHEN (*CRX) 5-325 MG TABLET 1 TABLET PO (08:33)
--- NOTE | 2024-03-11 10:18 | PCOTNOTE ---
Patient out of the room at this time, having a abdominal CT done. Will check back at a later time.
[2024-03-11] MEDS: POTASSIUM CHLORIDE 20 MEQ PACKET (FOR LIQUID) PO (10:24)
[2024-03-11] MEDS: POTASSIUM CHLORIDE 20 MEQ ER TABLET 40 MEQ PO (10:25)
[2024-03-11] MEDS: AMOXICILLIN/CLAVULANATE K 875-125 MG TAB 1 TABLET PO (10:58)
--- NOTE | 2024-03-11 12:00 | P.PNOP_ITS ---
Progress Note: A&P Assessment and Plan (1) Closed intertrochanteric fracture of femur: Qualifiers: Encounter type: initial encounter Fracture alignment: displaced Laterality: left Qualified Code(s): S72.142A - Displaced intertrochanteric fracture of left femur, initial encounter for closed fracture Code(s): S72.143A - Displaced intertrochanteric fracture of unspecified femur, initial encounter for closed fracture Status: Acute Assessment and Plan: Postop day 3: ORIF femur intertrochanteric fracture with cephalomedullary nail, left. No changes in care plan for orthopedic standpoint. Patient tolerated procedure well. No complications. Pain manageable. Work with PT/OT today. Discharge planning in progress. Will benefit from SNF/Rehab. Okay for discharge from orthopedic standpoint once cleared medically. Ortho instructions: ORIF femur intertrochanteric fracture with cephalomedullary nail, left. 03/08/24 * D/C to SNF/rehab * Xray and follow up in office or virtually if unable to make it to the office. * Wound Care: remove jarvis at 2 weeks post op. Daily dressing changes until healed. * PT: Weight bearing as tolerated with a walker. * DVT prophylaxis: continue Heparin for 30 days total * Pain medication: Tylenol. Subjective Subjective Date/Time Seen: 03/11/24 12:00 Interval history: Resting comfortably in bed. Notes pain in the hip. Asking for pain medications. Review of Systems Review of Systems: All systems reviewed & are unremarkable except as noted in HPI and below Exam Narrative: Normal weight 83 y/o Male. Resting comfortably in bed. Wearing compression socks bilaterally. Dressing dry and intact with no drainage. Moderate swelling. No ecchymosis. No erythema. No hematoma. Range of motion limited due to pain. Calf nontender. Thigh nontender. No varicosities. Distal pulses palpable. Objective Data Vital Signs Vital Signs: Vital Signs - 24 hr 03/10/24 14:00 03/10/24 14:49 03/10/24 16:00 Temperature 97.9 F Pulse Rate 73 86 Respiratory Rate 20 Blood Pressure 89/43 L 112/72 Pulse Oximetry 100 Oxygen Delivery 03/10/24 20:00 03/10/24 21:18 03/10/24 21:39 Temperature 98.6 F Pulse Rate 72 72 Respiratory Rate 18 Blood Pressure 98/54 L Pulse Oximetry 99 Oxygen Delivery Room Air 03/10/24 21:51 03/11/24 00:00 03/11/24 04:00 Temperature Pulse Rate 72 89 89 Respiratory Rate Blood Pressure Pulse Oximetry Oxygen Delivery 03/11/24 05:05 03/11/24 07:44 03/11/24 08:00 Temperature 98.6 F Pulse Rate 107 H 76 Respiratory Rate 18 Blood Pressure 97/46 L Pulse Oximetry 94 Oxygen Delivery Room Air Intake/Output Intake/Output: Intake & Output 03/08/24 03/09/24 03/10/24 03/11/24 23:59 23:59 23:59 23:59 Intake Total 1029 1780 2607 250 Output Total 700 600 700 750 Balance 329 1180 1907 -500 Meds/Results Medications: Active Medications Generic Name Dose Route Start Last Admin Trade Name Freq PRN Reason Stop Dose Admin Acetaminophen 500 mg 03/08/24 22:59 03/09/24 22:24 Acetaminophen 500 Mg Tablet PO 500 mg Q6H PRN Administration Pain Rated 1-3 Amoxicillin/Clavulanate Potassium 1 tablet 03/12/24 21:00 Amoxicillin/Clavulanate K 875-125 Mg Tab PO 03/19/24 09:01 Q12HR YARA Atorvastatin Calcium 80 mg 03/05/24 21:00 03/10/24 21:35 Atorvastatin 40 Mg Tablet PO 80 mg HS YARA Administration Carvedilol 3.125 mg 03/05/24 09:00 03/11/24 08:22 Carvedilol 3.125 Mg Tablet PO 3.125 mg Q12HR YARA Administration Folic Acid 1 mg 03/05/24 09:00 03/11/24 08:22 Folic Acid 1 Mg Tablet PO 1 mg DAILY YARA Administration Furosemide 10 mg 03/05/24 09:00 03/11/24 08:24 Furosemide 10 Mg Tablet PO 10 mg QAM YARA Administration Heparin Sodium (Porcine) 5,000 units 03/05/24 09:00 03/11/24 08:23 Heparin Sodium 5,000 Units/Ml Vial SUB-Q 5,000 units Q12HR YARA Administration Hydromorphone HCl 1 mg 03/08/24 22:59 03/09/24 10:04 Hydromorphone Hcl Inj (*Crx) 1 Mg/Ml Syr IV PUSH 1 mg Q2H PRN Administration Breakthrough Pain Rated 7-10 or NPO Hydromorphone HCl 0.5 mg 03/08/24 22:59 Hydromorphone Hcl Inj (*Crx) 1 Mg/Ml Syr IV PUSH Q2H PRN Breakthrough Pain Rated 4-6 or NPO Hydroxyzine Pamoate 50 mg 03/08/24 22:59 Hydroxyzine Pamoate 25 Mg Capsule PO Q4H PRN Itching Hyoscyamine 0.125 mg 03/05/24 09:54 Hyoscyamine Sulfate 0.125 Mg Tablet SUBLINGUAL QID PRN dyspepsia Magnesium Sulfate/Dextrose 1 gm in 100 mls @ 100 mls/hr 03/07/24 16:54 Magnesium Sulf 1 Gm/D5w 100 Ml IVPB ONCE PRN Magnesium 1gm IV x one for serum magnesium <1.8. Ceftriaxone Sodium 1 gm in 50 mls @ 100 mls/hr 03/11/24 21:00 Rocephin 1 Gm/Ns 50 Ml IVPB 03/11/24 21:29 ONCE ONE Linezolid 600 mg 03/11/24 21:00 Linezolid 600 Mg Tablet PO 03/19/24 09:01 Q12HR YARA Loperamide HCl 2 mg 03/05/24 09:54 03/09/24 22:24 Loperamide Hcl 2 Mg Capsule PO 2 mg Q6H PRN Administration diarrhea Multivitamins/Calcium 1 tablet 03/05/24 09:00 03/11/24 08:22 Therapeutic Multivitamins/Minerals Tab (*Bkc) PO 1 tablet DAILY YARA Administration Naloxone HCl 0.1 mg 03/08/24 22:59 Naloxone Hcl 0.4 Mg/Ml Vial IV PUSH Q2M PRN Opiate Reversal Ondansetron HCl 4 mg 03/08/24 22:59 Ondansetron Inj 4 Mg/2 Ml Vial IV PUSH Q4H PRN Nausea And Vomiting Oxycodone/Acetaminophen 1 tablet 03/08/24 22:59 03/11/24 08:33 Oxycodone/Acetaminophen (*Crx) 5-325 Mg Tablet PO 1 tablet Q4H PRN Administration Pain Rated 4-6 Oxycodone/Acetaminophen 1 tab 03/08/24 22:59 Oxycodone/Acetaminophen (*Crx) 10-325 Mg Tablet PO Q6H PRN Pain Rated 7-10 Pantoprazole Sodium 40 mg 03/08/24 21:00 03/11/24 08:25 Pantoprazole Sodium Iv 40 Mg Vial IV PUSH 40 mg Q12HR YARA Administration Polyethylene Glycol 17 gm 03/09/24 09:00 03/11/24 08:25 Polyethylene Glycol 3350 17 Gm Powd.Pack PO Not Given QAM YARA Potassium Chloride 20 meq 03/11/24 09:00 03/11/24 10:24 Potassium Chloride 20 Meq Packet (For Liquid) PO 20 meq DAILY YARA Administration Sacubitril/Valsartan 1 tab 03/05/24 09:00 03/11/24 08:25 Sacubitril/Valsartan 24-26 Mg Tablet PO Not Given Q12HR YARA Senna/Docusate Sodium 2 tab 03/09/24 09:00 03/11/24 08:23 Senna/Docusate Sodium Tablet PO 2 tab Q12HR YARA Administration Radiology Results: ITS Impressions Head CT 03/04/24 19:10 IMPRESSION: No acute intracranial process. Chest X-Ray 03/04/24 19:12 IMPRESSION: No acute cardiopulmonary process. Hip/Pelvis X-Ray 03/04/24 19:15 IMPRESSION: Comminuted intertrochanteric fracture of the left femur. Chest/Abdomen/Pelvis CT 03/07/24 13:10 IMPRESSION: 1. Comminuted intertrochanteric fracture of proximal left femur. 2. 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 3. Distended rectosigmoid, likely adynamic ileus. 4. 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 Scrotum Ultrasound 03/09/24 14:32 IMPRESSION: No evidence of torsion or epididymo-orchitis. Bilateral hydroceles. Left epididymal cyst. Inflammatory changes around the testicles which are most likely suggestive of cellulitis. Follow-up advised. Otherwise, normal testicular ultra sound. Abdomen/Pelvis CT 03/11/24 10:17 IMPRESSION: 1. Persistent liquid stool throughout the colon consistent with nonspecific diarrhea. No bowel obstruction. 2. Cholelithiasis. 3. Nonobstructing right nephrolithiasis. 4. Chronic interstitial lung disease with associated mild bronchiectasis in the visualized lower lungs. 5. Unchanged 3.5 cm fusiform infrarenal abdominal aortic aneurysm. 6. Interval reduction and internal fixation of the recent comminuted intratrochanteric fracture of the proximal left femur. Labs Labs: Laboratory Results - last 24 hr 03/10/24 03/11/24 11:48 07:05 WBC 4.7 RBC 2.76 L Hgb 7.9 L Hct 24.0 L MCV 87.0 MCH 28.6 MCHC 32.9 RDW 13.4 Plt Count 102 L MPV 11.5 H % Immature Plt Fraction 4.3 Sodium 136 L Potassium 3.9 3.1 L Chloride 109 H Carbon Dioxide 25 Anion Gap 2 L BUN 19 Creatinine 0.69 L Estim Creat Clear Calc 79 Estimated GFR > 60 Glucose 115 H Calcium 7.0 L Total Bilirubin 1.1 AST 58 ALT 25 Alkaline Phosphatase 55 Total Protein 5.0 L Albumin 2.2 L
--- NOTE | 2024-03-11 12:26 | PCNWS ---
Weekly nutritional screen. Patient is tolerating current diet. regular diet post adynamic ileus, starting to improve with intakes. No weight loss reported. Discussed in rounds. No nutritional needs at this time.
[2024-03-11 13:40] LABS: Potassium 3.4 mmol/L (3.4-5.0)
--- NOTE | 2024-03-11 14:31 | P.PNIM_ITS ---
Progress Note: A&P Assessment and Plan (1) Ground-level fall: Code(s): W18.30XA - Fall on same level, unspecified, initial encounter Status: Acute (2) Closed intertrochanteric fracture of femur: Qualifiers: Encounter type: initial encounter Fracture alignment: displaced Laterality: left Qualified Code(s): S72.142A - Displaced intertrochanteric fracture of left femur, initial encounter for closed fracture Code(s): S72.143A - Displaced intertrochanteric fracture of unspecified femur, initial encounter for closed fracture Status: Acute (3) Alcoholism: Code(s): F10.20 - Alcohol dependence, uncomplicated Status: Acute Assessment and Plan: Delete (4) Cardiomyopathy: Code(s): I42.9 - Cardiomyopathy, unspecified Status: Acute (5) Atrial fibrillation with RVR: Code(s): I48.91 - Unspecified atrial fibrillation Status: Acute (6) Pulmonary embolism: Qualifiers: Acute cor pulmonale presence: without acute cor pulmonale Chronicity: acute Pulmonary embolism type: unspecified Qualified Code(s): I26.99 - Other pulmonary embolism without acute cor pulmonale Code(s): I26.99 - Other pulmonary embolism without acute cor pulmonale Status: Acute (7) Parkinsons disease: Code(s): G20 - Parkinson's disease Status: Acute (8) Thrombocytopenia: Code(s): D69.6 - Thrombocytopenia, unspecified Status: Acute (9) Anemia: Code(s): D64.9 - Anemia, unspecified Status: Acute Plan This is an 83-year-old male presented to the ED/12/17 after a ground level fall mechanical while using his walker. Patient was unable to get back up. No loss of consciousness. Hip pain. Workup revealed comminuted intertrochanteric fracture of left femur. Patient was admitted for further treatment. CT head was negative. Chest x-ray with no acute cardiopulmonary process. Orthopedic was consulted. Planned left hip cephalomedullary nailing. Anemia been down to 7.4 received 2 unit of transfusion. Hemoglobin of 10 today. No signs of bleeding. Could be hemodilution now as he has received 10 L +since admission. CTA chest abdomen pelvis with no bleeding. Findings of adynamic ileus Fall ORIF femur intertrochanteric fracture with cephalomedullary nail, left on 03/08. Scrotal redness US shows possible cellulitis Ordered Zyvox and continue ceftriaxone Adynamic ileus Having bowel movement now. Advance diet as tolerate Surgery consulted Continue to monitor Alcoholism History of alcoholism has not drank since 5 years. 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 Congestive heart failure with reduced ejection fracture line coronary artery disease EF 30-35% in the past last echo 2021 with EF% Abdominal aortic aneurysm AFib chronic rate controlled anticoagulated which is on hold for the surgery Parkinson's disease History of DVT/PE on chronic anticoagulation Acute on Chronic anemia. Received 2 U PRBC on 03/07 CT chest abdomen pelvis reviewed Ferritin 46.5. B12 731 more than 20. Check stool for occult blood. Thrombocytopenia improved fluctuating upon review previous labs. Likely due to chronic alcoholism. GI consulted and appreciate recs DVT prophylaxis on SCDs. Used to be on apixaban prior to admission Code status full code Subjective Date/time seen: 03/11/24 14:31 Interval history: On 03/04 his Hemoglobulin was 12.8 and the on 03/07 he dropped to 7.4. After 2 U PRBC his HgB was stable around 10 and today he dropped to 7.9. Due to concerns of ongoing bleeding from family members GI is consulted and appreciate their input. His scrotal edema and redness is getting better but still substantial edema and redness is present. Review of Systems Review of Systems: Fall, left hip pain with movement, unable to bear weight. All systems reviewed & are unremarkable except as noted in HPI and below Exam Narrative: GENERAL APPEARANCE: Appears to be in no acute distress. HEAD: normocephalic atraumatic EYES: PERRL, EOMI. Vision grossly intact. CARDIAC: Normal S1/S2. Rhythm is regular. No murmurs, rubs, or gallops. No cyanosis or pallor. LUNGS: Clear to auscultation without rales, rhonchi, wheezing or diminished breath sounds. Respirations even and unlabored. ABDOMEN: BS positive x 4 quadrants. Soft, mildly distended, nontender. No guarding or rebound. MSK: Distal nv sensation intact blle. Pain to palpation of left hip. PERIPHERAL VASCULAR: Peripheral pulses palpable. Normal perfusion, cap refill <2 seconds. No edema. NEURO: Follows commands. No focal deficits. SKIN: [place] without lesions or eruptions. PSYCH: Stable, no paranoia or delusional thinking. Const: General: comfortable, no acute distress, well developed, alert, awake, average body habitus and thin Nutritional Appearance: average body habitus and thin Orientation/consciousness: patient oriented x3 Other: Well-appearing HENMT: Head: normal to inspection, normocephalic and atraumatic Ears: hearing grossly normal bilaterally Face/Nose/Sinus: normal facial exam Face and sinus: normal facial exam Eyes: General: appearance normal, both eyes and all related structures Pupils: Equal, round and reactive pupils present EOM: EOMs intact bilaterally Neck: Neck: full ROM, no lymphadenopathy and no JVD Thyroid: thyroid normal Lymphatic: no lymphadenopathy noted Resp: Effort & Inspection: normal respiratory effort and able to speak in complete sentences Auscultation: clear to auscultation bilaterally Cardio: Jugular venous distension: no JVD Rate: regular rate Rhythm: regular rhythm Heart sounds: S1 normal heart sound present and S2 normal heart sound present : General: Yes deferred Skin: Rashes: no rashes Wounds: no wounds Neuro: General: patient oriented x3, CN's II-XI intact bilaterally and Unable to assess gait Cranial nerves: Yes CN's II-XII intact bilaterally and Yes Equal, round and reactive pupils present Cognition (Neuro): normal cognition Speech: normal speech Gait exam (Neuro): Unable to assess gait Motor exam (neuro): 5/5 motor strength present throughout Extrem: Other: Left leg is externally rotated and shortened Objective Data Vital Signs Vital Signs: Vital Signs - 24 hr 03/10/24 14:49 03/10/24 16:00 03/10/24 20:00 Temperature Pulse Rate 86 72 Respiratory Rate Blood Pressure 112/72 Pulse Oximetry Oxygen Delivery 03/10/24 21:18 03/10/24 21:39 03/10/24 21:51 Temperature 98.6 F Pulse Rate 72 72 Respiratory Rate 18 Blood Pressure 98/54 L Pulse Oximetry 99 Oxygen Delivery Room Air 03/11/24 00:00 03/11/24 04:00 03/11/24 05:05 Temperature 98.6 F Pulse Rate 89 89 107 H Respiratory Rate 18 Blood Pressure 97/46 L Pulse Oximetry 94 Oxygen Delivery 03/11/24 07:44 03/11/24 08:00 03/11/24 12:00 Temperature Pulse Rate 76 72 Respiratory Rate Blood Pressure Pulse Oximetry Oxygen Delivery Room Air 03/11/24 13:46 Temperature 98.0 F Pulse Rate 75 Respiratory Rate 18 Blood Pressure 95/50 L Pulse Oximetry 98 Oxygen Delivery Intake/Output Intake/Output: Intake & Output 03/08/24 03/09/24 03/10/24 03/11/24 23:59 23:59 23:59 23:59 Intake Total 1029 1780 2607 490 Output Total 700 600 700 750 Balance 329 1180 1907 -260 Meds/Results Medications: Active Medications Generic Name Dose Route Start Last Admin Trade Name Freq PRN Reason Stop Dose Admin Acetaminophen 500 mg 03/08/24 22:59 03/09/24 22:24 Acetaminophen 500 Mg Tablet PO 500 mg Q6H PRN Administration Pain Rated 1-3 Amoxicillin/Clavulanate Potassium 1 tablet 03/12/24 21:00 Amoxicillin/Clavulanate K 875-125 Mg Tab PO 03/19/24 09:01 Q12HR YARA Atorvastatin Calcium 80 mg 03/05/24 21:00 03/10/24 21:35 Atorvastatin 40 Mg Tablet PO 80 mg HS YARA Administration Carvedilol 3.125 mg 03/05/24 09:00 03/11/24 08:22 Carvedilol 3.125 Mg Tablet PO 3.125 mg Q12HR YARA Administration Folic Acid 1 mg 03/05/24 09:00 03/11/24 08:22 Folic Acid 1 Mg Tablet PO 1 mg DAILY YARA Administration Furosemide 10 mg 03/05/24 09:00 03/11/24 08:24 Furosemide 10 Mg Tablet PO 10 mg QAM YARA Administration Heparin Sodium (Porcine) 5,000 units 03/05/24 09:00 03/11/24 08:23 Heparin Sodium 5,000 Units/Ml Vial SUB-Q 5,000 units Q12HR YARA Administration Hydromorphone HCl 1 mg 03/08/24 22:59 03/09/24 10:04 Hydromorphone Hcl Inj (*Crx) 1 Mg/Ml Syr IV PUSH 1 mg Q2H PRN Administration Breakthrough Pain Rated 7-10 or NPO Hydromorphone HCl 0.5 mg 03/08/24 22:59 Hydromorphone Hcl Inj (*Crx) 1 Mg/Ml Syr IV PUSH Q2H PRN Breakthrough Pain Rated 4-6 or NPO Hydroxyzine Pamoate 50 mg 03/08/24 22:59 Hydroxyzine Pamoate 25 Mg Capsule PO Q4H PRN Itching Hyoscyamine 0.125 mg 03/05/24 09:54 Hyoscyamine Sulfate 0.125 Mg Tablet SUBLINGUAL QID PRN dyspepsia Magnesium Sulfate/Dextrose 1 gm in 100 mls @ 100 mls/hr 03/07/24 16:54 Magnesium Sulf 1 Gm/D5w 100 Ml IVPB ONCE PRN Magnesium 1gm IV x one for serum magnesium <1.8. Ceftriaxone Sodium 1 gm in 50 mls @ 100 mls/hr 03/11/24 21:00 Rocephin 1 Gm/Ns 50 Ml IVPB 03/11/24 21:29 ONCE ONE Linezolid 600 mg 03/11/24 21:00 Linezolid 600 Mg Tablet PO 03/19/24 09:01 Q12HR YARA Loperamide HCl 2 mg 03/05/24 09:54 03/09/24 22:24 Loperamide Hcl 2 Mg Capsule PO 2 mg Q6H PRN Administration diarrhea Multivitamins/Calcium 1 tablet 03/05/24 09:00 03/11/24 08:22 Therapeutic Multivitamins/Minerals Tab (*Bkc) PO 1 tablet DAILY YARA Administration Naloxone HCl 0.1 mg 03/08/24 22:59 Naloxone Hcl 0.4 Mg/Ml Vial IV PUSH Q2M PRN Opiate Reversal Ondansetron HCl 4 mg 03/08/24 22:59 Ondansetron Inj 4 Mg/2 Ml Vial IV PUSH Q4H PRN Nausea And Vomiting Oxycodone/Acetaminophen 1 tablet 03/08/24 22:59 03/11/24 08:33 Oxycodone/Acetaminophen (*Crx) 5-325 Mg Tablet PO 1 tablet Q4H PRN Administration Pain Rated 4-6 Oxycodone/Acetaminophen 1 tab 03/08/24 22:59 Oxycodone/Acetaminophen (*Crx) 10-325 Mg Tablet PO Q6H PRN Pain Rated 7-10 Pantoprazole Sodium 40 mg 03/08/24 21:00 03/11/24 08:25 Pantoprazole Sodium Iv 40 Mg Vial IV PUSH 40 mg Q12HR YARA Administration Polyethylene Glycol 17 gm 03/09/24 09:00 03/11/24 08:25 Polyethylene Glycol 3350 17 Gm Powd.Pack PO Not Given QAM YARA Potassium Chloride 20 meq 03/11/24 09:00 03/11/24 10:24 Potassium Chloride 20 Meq Packet (For Liquid) PO 20 meq DAILY YARA Administration Sacubitril/Valsartan 1 tab 03/05/24 09:00 03/11/24 08:25 Sacubitril/Valsartan 24-26 Mg Tablet PO Not Given Q12HR YARA Senna/Docusate Sodium 2 tab 03/09/24 09:00 03/11/24 08:23 Senna/Docusate Sodium Tablet PO 2 tab Q12HR YARA Administration Radiology Results: ITS Impressions Head CT 03/04/24 19:10 IMPRESSION: No acute intracranial process. Chest X-Ray 03/04/24 19:12 IMPRESSION: No acute cardiopulmonary process. Hip/Pelvis X-Ray 03/04/24 19:15 IMPRESSION: Comminuted intertrochanteric fracture of the left femur. Chest/Abdomen/Pelvis CT 03/07/24 13:10 IMPRESSION: 1. Comminuted intertrochanteric fracture of proximal left femur. 2. 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 3. Distended rectosigmoid, likely adynamic ileus. 4. 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 Scrotum Ultrasound 03/09/24 14:32 IMPRESSION: No evidence of torsion or epididymo-orchitis. Bilateral hydroceles. Left epididymal cyst. Inflammatory changes around the testicles which are most likely suggestive of cellulitis. Follow-up advised. Otherwise, normal testicular ultrasound. Abdomen/Pelvis CT 03/11/24 10:17 IMPRESSION: 1. Persistent liquid stool throughout the colon consistent with nonspecific diarrhea. No bowel obstruction. 2. Cholelithiasis. 3. Nonobstructing right nephrolithiasis. 4. Chronic interstitial lung disease with associated mild bronchiectasis in the visualized lower lungs. 5. Unchanged 3.5 cm fusiform infrarenal abdominal aortic aneurysm. 6. Interval reduction and internal fixation of the recent comminuted intratrochanteric fracture of the proximal left femur. Labs Labs: Laboratory Results - last 24 hr 03/11/24 03/11/24 07:05 12:31 WBC 4.7 RBC 2.76 L Hgb 7.9 L Hct 24.0 L MCV 87.0 MCH 28.6 MCHC 32.9 RDW 13.4 Plt Count 102 L MPV 11.5 H % Immature Plt Fraction 4.3 Sodium 136 L Potassium 3.1 L 3.4 Chloride 109 H Carbon Dioxide 25 Anion Gap 2 L BUN 19 Creatinine 0.69 L Estim Creat Clear Calc 79 Estimated GFR > 60 Glucose 115 H Calcium 7.0 L Total Bilirubin 1.1 AST 58 ALT 25 Alkaline Phosphatase 55 Total Protein 5.0 L Albumin 2.2 L Quality VTE Prophylaxis VTE prophylaxis: mechanical ordered Hospitalist [facility] Advance Care Plan I have confirmed that the patient's Advanced Care Plan is present, code status is documented, or surrogate decision maker is listed in patient medical record.: Yes Medication Reconciliation I have utilized all available resources to obtain, update and review the patients current medications (includes all prescriptions, OTC, herbals, cannabis, and nutritional supplements).: Yes
--- NOTE | 2024-03-11 14:45 | P.CONGI_ITS ---
Assessment and Plan Assessment and plan (1) Thrombocytopenia: Code(s): D69.6 - Thrombocytopenia, unspecified Status: Acute (2) Iron deficiency anemia: Code(s): D50.9 - Iron deficiency anemia, unspecified Status: Acute Assessment and Plan: The patient presents with iron deficiency anemia in the setting of heavy alcohol abuse and thrombocytopenia, strongly suggesting cirrhosis as a main differential diagnosis. Potential sources of gastrointestinal bleeding include portal hypertensive gastropathy, peptic ulcer disease, and colonic pathologies such as colorectal cancer and angiodysplasias. Ideally, an EGD and colonoscopy would be performed. However, given his recent hip surgery, these procedures are currently contraindicated until clearance is obtained from the Orthopedic Service. In the interim, I will order an abdominal ultrasound with Doppler studies to evaluate for portal hypertension and assess for the presence of portal or splenic vein thrombosis. Once the patient is medically stable, I will schedule the necessary endoscopic procedures. GI Consult Note Consult date/time: 03/11/24 14:45 HPI: Eren Kulkarni is a 83 year old male Who was admitted due to a right hip fracture, having surgical repair on 03/08/2024. On admission he was found to be anemic, iron deficient with the transferrin saturation percentage of 11%. There is no overt GI bleeding, melena, hematemesis or history of peptic ulcer. Importantly, the patient has a longstanding history of alcohol abuse which he stopped about 4 years ago when he had Multiple cardiac problems including pacemaker placement, aortic valve repair and CHF. He used to drink 2 shots of bourbon every day, For at least 30 years. The reason for the consult please the investigation of anemia and thrombocytopenia. Review of Systems 2 Review of Systems: All systems reviewed & are unremarkable except as noted in HPI and below PMFSH Past Medical History Medical History Pulmonary thrombosis Pacemaker Alcoholism Parkinsons disease Skin cancer Fatty liver Skull fracture Arthritis GERD (gastroesophageal reflux disease) Pneumonia Pulmonary embolism DVT (deep venous thrombosis) Seasonal allergies Surgical History Surgical History H/O heart valve replacement with bioprosthetic valve H/O local excision of skin lesion History of tonsillectomy Family History Family History Father Congestive heart failure Heart disease Mother Heart disease Breast cancer Sibling Breast cancer Hx of CABG Social History Social History Smoking packs per day: 1 Smoking cigarettes per day: 20.0 Years smoked: 20 Smoking pack-years: 20.00 Smoking status: Former smoker Second hand tobacco smoke exposure: Yes Additional smoking assessment comments: quit in 1971 Alcohol intake: never Drinks per week: 7 Substance use: never Substance use type: does not use Do You Feel Safe in your Home?: Yes Lack of Transportation: No Lack of Food: Never True Current Housing: I Have Housing Concerned About Future Housing: No Difficulty Paying Gas/Electric Bills: No Difficulty Paying for Meds: No Currently Unemployed: No Education: Master's Degree or Higher Difficulty w/ Childcare or Family Care: YES Living arrangements: with family Additional living arrangements comments: Occupation/Education: retired Gender identity (if verbalized by the patient): Male Sexual Orientation (if Verbalized by the Patient): Straight or Heterosexual Spiritual care concerns: No Agree to blood products: Yes Meds Home Medications and Allergies Home Medications ?Medication ?Instructions ?Recorded ?Confirmed ?Type atorvastatin 80 mg tablet 80 mg PO HS #30 tabs 05/27/19 03/04/24 Rx apixaban 5 mg tablet 5 mg PO BID 05/23/21 03/04/24 History famotidine 10 mg tablet 10 mg PO DAILY 05/23/21 03/04/24 History folic acid 1 mg tablet 1 mg PO DAILY 05/23/21 03/04/24 History furosemide 20 mg tablet 10 mg PO QAM 05/23/21 03/04/24 History multivitamin-iron 9 mg-folic acid 1 tablet PO DAILY 05/23/21 03/04/24 History 400 mcg-calcium and minerals tablet (Thera-M) sacubitril 24 mg-valsartan 26 mg 1 tablet PO BID 05/23/21 03/04/24 History tablet carvedilol 3.125 mg tablet 3.125 mg PO ONCE 12/24/21 03/04/24 History loperamide 2 mg capsule (Imodium 2 mg PO Q6H PRN diarrhea 12/24/21 03/04/24 History A-D) hyoscyamine sulfate 0.125 mg 0.125 mg sublingual QID PRN 03/13/22 03/04/24 Rx sublingual tablet dyspepsia #120 tabs sacubitril 24 mg-valsartan 26 mg 1 tablet PO BID 03/04/24 03/04/24 History tablet (Entresto) Allergies Allergy/AdvReac Type Severity Reaction Status Date / Time No Known Allergies Allergy Unknown Verified 10/23/22 11:41 Vital Signs Vital Signs - 24 hr 03/10/24 14:49 03/10/24 16:00 03/10/24 20:00 Temperature Pulse Rate 86 72 Respiratory Rate Blood Pressure 112/72 Pulse Oximetry Oxygen Delivery 03/10/24 21:18 03/10/24 21:39 03/10/24 21:51 Temperature 98.6 F Pulse Rate 72 72 Respiratory Rate 18 Blood Pressure 98/54 L Pulse Oximetry 99 Oxygen Delivery Room Air 03/11/24 00:00 03/11/24 04:00 03/11/24 05:05 Temperature 98.6 F Pulse Rate 89 89 107 H Respiratory Rate 18 Blood Pressure 97/46 L Pulse Oximetry 94 Oxygen Delivery 03/11/24 07:44 03/11/24 08:00 03/11/24 12:00 Temperature Pulse Rate 76 72 Respiratory Rate Blood Pressure Pulse Oximetry Oxygen Delivery Room Air 03/11/24 13:46 Temperature 98.0 F Pulse Rate 75 Respiratory Rate 18 Blood Pressure 95/50 L Pulse Oximetry 98 Oxygen Delivery Exam 2 Narrative: GENERAL APPEARANCE: Appears to be in no acute distress. HEAD: normocephalic atraumatic EYES: PERRL, EOMI. Vision grossly intact. CARDIAC: Normal S1/S2. Rhythm is regular. No murmurs, rubs, or gallops. No cyanosis or pallor. LUNGS: Clear to auscultation without rales, rhonchi, wheezing or diminished breath sounds. Respirations even and unlabored. ABDOMEN: BS positive x 4 quadrants. Soft, mildly distended, nontender. No guarding or rebound. MSK: Distal nv sensation intact blle. Pain to palpation of left hip. PERIPHERAL VASCULAR: Peripheral pulses palpable. Normal perfusion, cap refill <2 seconds. No edema. NEURO: Follows commands. No focal deficits. SKIN: [place] without lesions or eruptions. PSYCH: Stable, no paranoia or delusional thinking. Const: General: comfortable, no acute distress, well developed, alert, awake, average body habitus and thin Nutritional Appearance: average body habitus and thin Orientation/consciousness: patient oriented x3 Other: Well-appearing HENMT: Head: normal to inspection, normocephalic and atraumatic Ears: h earing grossly normal bilaterally Face/Nose/Sinus: normal facial exam Face and sinus: normal facial exam Eyes: General: appearance normal, both eyes and all related structures P upils: Equal, round and reactive pupils present EOM: EOMs intact bilaterally Neck: Neck: full ROM, no lymphadenopathy and no JVD Thyroid: thyroid normal Lymphatic: no lymphadenopathy noted Resp: Effort & Inspection: normal respiratory effort and able to speak in complete sentences Auscultation: clear to auscultation bilaterally Cardio: Jugular venous distension: no JVD Rate: regular rate Rhythm: r egular rhythm Heart sounds: S1 normal heart sound present and S2 normal heart sound present : General: Yes deferred Skin: Rashes: no rashes Wounds: no wounds Neuro: General: patient oriented x3, CN's II-XI intact bilaterally and Unable to assess gait Cranial nerves: Yes CN's II-XII intact bilaterally and Yes Equal, round and reactive pupils present Cognition (Neuro): normal cognition Speech: normal speech Gait exam (Neuro): Unable to assess gait Motor exam (neuro): 5/5 motor strength present throughout Extrem: Other: Left leg is externally rotated and shortened Results Labs 03/11/24 07:05 03/11/24 12:31 Labs: Short CBC 03/11/24 Range/Units 07:05 WBC 4.7 (4.5-10.0) K/mm3 Hgb 7.9 L (14.0-18.0) g/dL Hct 24.0 L (42.0-52.0) % Plt Count 102 L (150-375) k/mm3 BMP 03/11/24 03/11/24 07:05 12:31 Sodium 136 L Potassium 3.1 L 3.4 Chloride 109 H Carbon Dioxide 25 BUN 19 Creatinine 0.69 L Glucose 115 H Calcium 7.0 L Liver Function 03/11/24 Range/Units 07:05 Total Bilirubin 1.1 (0.2-1.3) mg/dL AST 58 (17-59) U/L ALT 25 (6-50) U/L Alkaline Phosphatase 55 (38-126) U/L Albumin 2.2 L (3.5-5.1) g/dL
[2024-03-11] MEDS: SACUBITRIL/VALSARTAN 24-26 MG TABLET 1 TAB PO (20:38)
[2024-03-11] MEDS: ATORVASTATIN 40 MG TABLET 80 MG PO (20:38)
[2024-03-12] VITALS (10 sets, daily range): BP systolic 98–109; BP diastolic 47–52; PULSE 44–96; RESP 16–20; TEMP 36.8–37; O2SAT 98–100
[2024-03-12] MEDS: HYDROmorphone HCL INJ (*CRX) 1 MG/ML SYR 0.5 MG IV PUSH (03:21)
[2024-03-12 06:13] LABS: Hematocrit 24.4 % (42.0-52.0); Hemoglobin 7.9 g/dL (14.0-18.0); Mean Corpuscular HGB Conc 32.4 g/dl (32-36); Mean Corpuscular Hemoglobin 28.2 pg (26-34); Mean Corpuscular Volume 87.1 fl (80-100); Mean Platelet Volume 11.1 fl (7.4-10.4); Platelet Count Result 116 k/mm3 (150-375); Red Cell Distribution Width 13.4 % (11.5-14.5); White Blood Count 4.3 K/mm3 (4.5-10.0)
[2024-03-12 06:23] LABS: Chloride 111 mmol/L (98-107)
[2024-03-12 06:28] LABS: Alanine Aminotransferase 34 U/L (6-50); Albumin Level 2.3 g/dL (3.5-5.1); Alkaline Phosphatase 74 U/L (38-126); Anion Gap 3 mmol/L (4-12); Aspartate Amino Transferase 70 U/L (17-59); Blood Urea Nitrogen 19 mg/dL (9-20); Calcium 7.5 mg/dL (8.4-10.2); Carbon Dioxide 22 mmol/L (22-30); Estimated CRCL calculation 87 ml/min; Estimated Glomerular Filt Rate > 60; Glucose 120 mg/dL (65-110); Potassium 3.1 mmol/L (3.4-5.0); Sodium 136 mmol/L (137-145)
[2024-03-12] MEDS: polyethylene glycoL 3350 17 GM POWD.PACK PO (08:44)
[2024-03-12] MEDS: HEPARIN SODIUM 5,000 UNITS/ML VIAL 5000 UNITS SUB-Q ×2 (08:44→22:02)
[2024-03-12] MEDS: carvediloL 3.125 MG TABLET PO ×2 (08:44→22:02)
[2024-03-12] MEDS: SENNA/DOCUSATE SODIUM TABLET 2 TAB PO ×2 (08:44→22:02)
[2024-03-12] MEDS: PANTOPRAZOLE SODIUM IV 40 MG VIAL IV PUSH ×2 (08:44→22:03)
[2024-03-12] MEDS: THERAPEUTIC MULTIVITAMINS/MINERALS TAB (*BKC) 1 TABLET PO (08:44)
[2024-03-12] MEDS: FUROSEMIDE 10 MG TABLET PO (08:45)
[2024-03-12] MEDS: POTASSIUM CHLORIDE 20 MEQ ER TABLET 40 MEQ PO (08:45)
[2024-03-12] MEDS: LINEZOLID 600 MG TABLET PO ×2 (08:45→22:02)
[2024-03-12] MEDS: SACUBITRIL/VALSARTAN 24-26 MG TABLET 1 TAB PO ×2 (08:45→22:02)
[2024-03-12] MEDS: FOLIC ACID 1 MG TABLET PO (08:45)
[2024-03-12] MEDS: POTASSIUM CHLORIDE 20 MEQ PACKET (FOR LIQUID) PO (08:46)
[2024-03-12] MEDS: oxyCODONE/ACETAMINOPHEN (*CRX) 10-325 MG TABLET 1 TAB PO ×2 (10:20→22:01)
--- NOTE | 2024-03-12 11:40 | PC.NURSE ---
Patient resting in bed for morning assessment. arrives and helps him with breakfast. (She is feeding him even though patient is capable of doing it himself.) Patient able to swallow pill whole, with Ensure, but has some difficulty without coughing. He was instructed to hold his own cup as his was giving him sips . He likes to keep his eyes closed during activity. He was encouraged to keep them open. Wound 4x4's CDI. Will change during a normal turning or pericare time as patient still has extreme discomfort with any movement.
--- NOTE | 2024-03-12 12:27 | WPDGIPROGNO ---
Progress Note: A&P Assessment and Plan (1) Thrombocytopenia: Code(s): D69.6 - Thrombocytopenia, unspecified Status: Acute Assessment and Plan: The patient has thrombocytopenia and hypoalbuminemia, likely secondary to chronic liver disease resulting from chronic alcohol use, as discussed in yesterday's evaluation. Today's ultrasound demonstrated decreased blood flow in the hepatic veins, although no definitive obstruction or thrombosis was identified. These findings are suggestive of chronic liver disease or cirrhosis. While a FibroScan would be the ideal diagnostic tool, it is currently unavailable but is expected to arrive in the coming weeks. In the meantime, a non-invasive blood-based liver fibrosis panel will be ordered. Regarding the patient's iron deficiency anemia, a colonoscopy and upper endoscopy are indicated for evaluation. However, due to his recent hip surgery, these procedures are currently contraindicated and will be scheduled as outpatient procedures at a later date. Time Spent With Patient Time with patient: less than 15 minutes Subjective Date/time seen: 03/12/24 12:27 Interval history: The patient's scrotal edema and cellulitis improving with antibiotic therapy. Doppler ultrasound of the abdomen performed this morning. Objective Data Vital Signs Vital Signs: Vital Signs - 24 hr 03/11/24 13:46 03/11/24 16:00 03/11/24 20:00 Temperature 98.0 F Pulse Rate 75 84 Respiratory Rate 18 Blood Pressure 95/50 L Pulse Oximetry 98 Oxygen Delivery Room Air 03/11/24 20:00 03/11/24 20:38 03/11/24 20:40 Temperature 99.2 F Pulse Rate 81 92 92 Respiratory Rate 20 Blood Pressure 117/59 L Pulse Oximetry 99 Oxygen Delivery 03/12/24 00:00 03/12/24 04:00 03/12/24 05:28 Temperature 98.3 F Pulse Rate 85 89 56 L Respiratory Rate 16 Blood Pressure 109/47 L Pulse Oximetry 98 Oxygen Delivery 03/12/24 08:44 Temperature Pulse Rate 90 Respiratory Rate Blood Pressure Pulse Oximetry Oxygen Delivery Intake/Output Intake/Output: Intake & Output 03/09/24 03/10/24 03/11/24 03/12/24 23:59 23:59 23:59 23:59 Intake Total 1780 2607 730 1030 Output Total 979 192 2414 450 Balance 1180 1907 -520 580 Meds/Results Medications: Active Medications Generic Name Dose Route Start Last Admin Trade Name Freq PRN Reason Stop Dose Admin Acetaminophen 500 mg 03/08/24 22:59 03/09/24 22:24 Acetaminophen 500 Mg Tablet PO 500 mg Q6H PRN Administration Pain Rated 1-3 Amoxicillin/Clavulanate Potassium 1 tablet 03/12/24 21:00 Amoxicillin/Clavulanate K 875-125 Mg Tab PO 03/19/24 09:01 Q12HR YARA Atorvastatin Calcium 80 mg 03/05/24 21:00 03/11/24 20:38 Atorvastatin 40 Mg Tablet PO 80 mg HS REPLACED BY [facility] Administration Carvedilol 3.125 mg 03/05/24 09:00 03/12/24 08:44 Carvedilol 3.125 Mg Tablet PO 3.125 mg Q12HR REPLACED BY [facility] Administration Folic Acid 1 mg 03/05/24 09:00 03/12/24 08:45 Folic Acid 1 Mg Tablet PO 1 mg DAILY REPLACED BY [facility] Administration Furosemide 10 mg 03/05/24 09:00 03/12/24 08:45 Furosemide 10 Mg Tablet PO 10 mg QAM REPLACED BY [facility] Administration Furosemide 40 mg 03/12/24 11:00 Furosemide 40 Mg Tablet PO 03/14/24 09:01 DAILY REPLACED BY [facility] Heparin Sodium (Porcine) 5,000 units 03/05/24 09:00 03/12/24 08:44 Heparin Sodium 5,000 Units/Ml Vial SUB-Q 5,000 units Q12HR REPLACED BY [facility] Administration Hydromorphone HCl 1 mg 03/08/24 22:59 03/09/24 10:04 Hydromorphone Hcl Inj (*Crx) 1 Mg/Ml Syr IV PUSH 1 mg Q2H PRN Administration Breakthrough Pain Rated 7-10 or NPO Hydromorphone HCl 0.5 mg 03/08/24 22:59 03/12/24 03:21 Hydromorphone Hcl Inj (*Crx) 1 Mg/Ml Syr IV PUSH 0.5 mg Q2H PRN Administration Breakthrough Pain Rated 4-6 or NPO Hydroxyzine Pamoate 50 mg 03/08/24 22:59 Hydroxyzine Pamoate 25 Mg Capsule PO Q4H PRN Itching Hyoscyamine 0.125 mg 03/05/24 09:54 Hyoscyamine Sulfate 0.125 Mg Tablet SUBLINGUAL QID PRN dyspepsia Magnesium Sulfate/Dextrose 1 gm in 100 mls @ 100 mls/hr 03/07/24 16:54 Magnesium Sulf 1 Gm/D5w 100 Ml IVPB ONCE PRN Magnesium 1gm IV x one for serum magnesium <1.8. Linezolid 600 mg 03/11/24 21:00 03/12/24 08:45 Linezolid 600 Mg Tablet PO 03/19/24 09:01 600 mg Q12HR YARA Administration Loperamide HCl 2 mg 03/05/24 09:54 03/09/24 22:24 Loperamide Hcl 2 Mg Capsule PO 2 mg Q6H PRN Administration diarrhea Multivitamins/Calcium 1 tablet 03/05/24 09:00 03/12/24 08:44 Therapeutic Multivitamins/Minerals Tab (*Bkc) PO 1 tablet DAILY YARA Administration Naloxone HCl 0.1 mg 03/08/24 22:59 Naloxone Hcl 0.4 Mg/Ml Vial IV PUSH Q2M PRN Opiate Reversal Ondansetron HCl 4 mg 03/08/24 22:59 Ondansetron Inj 4 Mg/2 Ml Vial IV PUSH Q4H PRN Nausea And Vomiting Oxycodone/Acetaminophen 1 tablet 03/08/24 22:59 03/11/24 08:33 Oxycodone/Acetaminophen (*Crx) 5-325 Mg Tablet PO 1 tablet Q4H PRN Administration Pain Rated 4-6 Oxycodone/Acetaminophen 1 tab 03/08/24 22:59 03/12/24 10:20 Oxycodone/Acetaminophen (*Crx) 10-325 Mg Tablet PO 1 tab Q6H PRN Administration Pain Rated 7-10 Pantoprazole Sodium 40 mg 03/08/24 21:00 03/12/24 08:44 Pantoprazole Sodium Iv 40 Mg Vial IV PUSH 40 mg Q12HR YARA Administration Polyethylene Glycol 17 gm 03/09/24 09:00 03/12/24 08:44 Polyethylene Glycol 3350 17 Gm Powd.Pack PO 17 gm QAM YARA Administration Potassium Chloride 20 meq 03/11/24 09:00 03/12/24 08:46 Potassium Chloride 20 Meq Packet (For Liquid) PO 20 meq DAILY YARA Administration Sacubitril/Valsartan 1 tab 03/05/24 09:00 03/12/24 08:45 Sacubitril/Valsartan 24-26 Mg Tablet PO 1 tab Q12HR YARA Administration Senna/Docusate Sodium 2 tab 03/09/24 09:00 03/12/24 08:44 Senna/Docusate Sodium Tablet PO 2 tab Q12HR YARA Administration Radiology Results: ITS Impressions Head CT 03/04/24 19:10 IMPRESSION: No acute intracranial process. Chest X-Ray 03/04/24 19:12 IMPRESSION: No acute cardiopulmonary process. Hip/Pelvis X-Ray 03/04/24 19:15 IMPRESSION: Comminuted intertrochanteric fracture of the left femur. Chest/Abdomen/Pelvis CT 03/07/24 13:10 IMPRESSION: 1. Comminuted intertrochanteric fracture of proximal left femur. 2. 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 3. Distended rectosigmoid, likely adynamic ileus. 4. 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 Scrotum Ultrasound 03/09/24 14:32 IMPRESSION: No evidence of torsion or epididymo-orchitis. Bilateral hydroceles. Left epididymal cyst. Inflammatory changes around the testicles which are most likely suggestive of cellulitis. Follow-up advised. Otherwise, normal testicular ultrasound. Abdomen/Pelvis CT 03/11/24 10:17 IMPRESSION: 1. Persistent liquid stool throughout the colon consistent with nonspecific diarrhea. No bowel obstruction. 2. Cholelithiasis. 3. Nonobstructing right nephrolithiasis. 4. Chronic interstitial lung disease with associated mild bronchiectasis in the visualized lower lungs. 5. Unchanged 3.5 cm fusiform infrarenal abdominal aortic aneurysm. 6. Interval reduction and internal fixation of the recent comminuted intratrochanteric fracture of the proximal left femur. Arterial/Peripheral Duplex 03/12/24 11:12 IMPRESSION: 1. Normal flow in main portal vein. 2. Decreased pulsatility of the hepatic veins, which may be seen with liver disease, hepatic vein thrombosis, or hepatic venous outflow obstruction. Labs Labs: Laboratory Results - last 24 hr 03/11/24 03/12/24 12:31 06:05 WBC 4.3 L RBC 2.80 L Hgb 7.9 L Hct 24.4 L MCV 87.1 MCH 28.2 MCHC 32.4 RDW 13.4 Plt Count 116 L MPV 11.1 H Sodium 136 L Potassium 3.4 3.1 L Chloride 111 H Carbon Dioxide 22 Anion Gap 3 L BUN 19 Creatinine 0.62 L Estim Creat Clear Calc 87 Estimated GFR > 60 Glucose 120 H Calcium 7.5 L Total Bilirubin 1.0 AST 70 H ALT 34 Alkaline Phosphatase 74 Total Protein 5.0 L Albumin 2.3 L
[2024-03-12] MEDS: FUROSEMIDE 40 MG TABLET PO (12:47)
--- NOTE | 2024-03-12 13:01 | P.PNIM_ITS ---
Progress Note: A&P Assessment and Plan (1) Ground-level fall: Code(s): W18.30XA - Fall on same level, unspecified, initial encounter Status: Acute (2) Closed intertrochanteric fracture of femur: Qualifiers: Encounter type: initial encounter Fracture alignment: displaced Laterality: left Qualified Code(s): S72.142A - Displaced intertrochanteric fracture of left femur, initial encounter for closed fracture Code(s): S72.143A - Displaced intertrochanteric fracture of unspecified femur, initial encounter for closed fracture Status: Acute (3) Alcoholism: Code(s): F10.20 - Alcohol dependence, uncomplicated Status: Acute Assessment and Plan: Delete (4) Cardiomyopathy: Code(s): I42.9 - Cardiomyopathy, unspecified Status: Acute (5) Atrial fibrillation with RVR: Code(s): I48.91 - Unspecified atrial fibrillation Status: Acute (6) Pulmonary embolism: Qualifiers: Acute cor pulmonale presence: without acute cor pulmonale Chronicity: acute Pulmonary embolism type: unspecified Qualified Code(s): I26.99 - Other pulmonary embolism without acute cor pulmonale Code(s): I26.99 - Other pulmonary embolism without acute cor pulmonale Status: Acute (7) Parkinsons disease: Code(s): G20 - Parkinson's disease Status: Acute (8) Thrombocytopenia: Code(s): D69.6 - Thrombocytopenia, unspecified Status: Acute (9) Anemia: Code(s): D64.9 - Anemia, unspecified Status: Acute Plan This is an 83-year-old male presented to the ED/12/17 after a ground level fall mechanical while using his walker. Patient was unable to get back up. No loss of consciousness. Hip pain. Workup revealed comminuted intertrochanteric fracture of left femur. Patient was admitted for further treatment. CT head was negative. Chest x-ray with no acute cardiopulmonary process. Orthopedic was consulted. Planned left hip cephalomedullary nailing. Anemia been down to 7.4 received 2 unit of transfusion. Hemoglobin of 10 today. No signs of bleeding. Could be hemodilution now as he has received 10 L +since admission. CTA chest abdomen pelvis with no bleeding. Findings of adynamic ileus Fall ORIF femur intertrochanteric fracture with cephalomedullary nail, left on 03/08. Scrotal redness US shows possible cellulitis Ordered Zyvox and continue ceftriaxone Adynamic ileus Having bowel movement now. Advance diet as tolerate Surgery consulted Continue to monitor Alcoholism History of alcoholism has not drank since 5 years. 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 Congestive heart failure with reduced ejection fracture line coronary artery disease EF 30-35% in the past last echo 2021 with EF% Abdominal aortic aneurysm AFib chronic rate controlled anticoagulated which is on hold for the surgery Parkinson's disease History of DVT/PE on chronic anticoagulation Acute on Chronic anemia. Received 2 U PRBC on 03/07 CT chest abdomen pelvis reviewed Ferritin 46.5. B12 731 more than 20. Check stool for occult blood. Thrombocytopenia improved fluctuating upon review previous labs. Likely due to chronic alcoholism. GI consulted and appreciate recs DVT prophylaxis on SCDs. Used to be on apixaban prior to admission Code status full code Subjective Date/time seen: 03/12/24 13:01 Interval history: Patient scrotal edema and redness is improving but still edematous/redness. Added Lasix 40 mg PO x 3 days. GI is evaluated for possible GI bleed. GI ordered US retroperitoneal duplex to rule out varices from alcoholism. Review of Systems Review of Systems: Fall, left hip pain with movement, unable to bear weight. All systems reviewed & are unremarkable except as noted in HPI and below Exam Narrative: GENERAL APPEARANCE: Appears to be in no acute distress. HEAD: normocephalic atraumatic EYES: PERRL, EOMI. Vision grossly intact. CARDIAC: Normal S1/S2. Rhythm is regular. No murmurs, rubs, or gallops. No cyanosis or pallor. LUNGS: Clear to auscultation without rales, rhonchi, wheezing or diminished breath sounds. Respirations even and unlabored. ABDOMEN: BS positive x 4 quadrants. Soft, mildly distended, nontender. No guarding or rebound. MSK: Distal nv sensation intact blle. Pain to palpation of left hip. PERIPHERAL VASCULAR: Peripheral pulses palpable. Normal perfusion, cap refill <2 seconds. No edema. NEURO: Follows commands. No focal deficits. SKIN: [place] without lesions or eruptions. PSYCH: Stable, no paranoia or delusional thinking. Const: General: comfortable, no acute distress, well developed, alert, awake, average body habitus and thin Nutritional Appearance: average body habitus and thin Orientation/consciousness: patient oriented x3 Other: Well-appearing HENMT: Head: normal to inspection, normocephalic and atraumatic Ears: hearing grossly normal bilaterally Face/Nose/Sinus: normal facial exam Face and sinus: normal facial exam Eyes: General: appearance normal, both eyes and all related structures Pupils: Equal, round and reactive pupils present EOM: EOMs intact bilaterally Neck: Neck: full ROM, no lymphadenopathy and no JVD Thyroid: thyroid normal Lymphatic: no lymphadenopathy noted Resp: Effort & Inspection: normal respiratory effort and able to speak in complete sentences Auscultation: clear to auscultation bilaterally Cardio: Jugular venous distension: no JVD Rate: regular rate Rhythm: regular rhythm Heart sounds: S1 normal heart sound present and S2 normal heart sound present : General: Yes deferred Skin: Rashes: no rashes Wounds: no wounds Neuro: General: patient oriented x3, CN's II-XI intact bilaterally and Unable to assess gait Cranial nerves: Yes CN's II-XII intact bilaterally and Yes Equal, round and reactive pupils present Cognition (Neuro): normal cognition Speech: normal speech Gait exam (Neuro): Unable to assess gait Motor exam (neuro): 5/5 motor strength present throughout Extrem: Other: Left leg is externally rotated and shortened Objective Data Vital Signs Vital Signs: Vital Signs - 24 hr 03/11/24 13:46 03/11/24 16:00 03/11/24 20:00 Temperature 98.0 F Pulse Rate 75 84 Respiratory Rate 18 Blood Pressure 95/50 L Pulse Oximetry 98 Oxygen Delivery Room Air 03/11/24 20:00 03/11/24 20:38 03/11/24 20:40 Temperature 99.2 F Pulse Rate 81 92 92 Respiratory Rate 20 Blood Pressure 117/59 L Pulse Oximetry 99 Oxygen Delivery 03/12/24 00:00 03/12/24 04:00 03/12/24 05:28 Temperature 98.3 F Pulse Rate 85 89 56 L Respiratory Rate 16 Blood Pressure 109/47 L Pulse Oximetry 98 Oxygen Delivery 03/12/24 08:44 Temperature Pulse Rate 90 Respiratory Rate Blood Pressure Pulse Oximetry Oxygen Delivery Intake/Output Intake/Output: Intake & Output 03/09/24 03/10/24 03/11/24 03/12/24 23:59 23:59 23:59 23:59 Intake Total 1780 2607 730 1030 Output Total 459 009 0334 450 Balance 1180 1907 -520 580 Meds/Results Medications: Active Medications Generic Name Dose Route Start Last Admin Trade Name Freq PRN Reason Stop Dose Admin Acetaminophen 500 mg 03/08/24 22:59 03/09/24 22:24 Acetaminophen 500 Mg Tablet PO 500 mg Q6H PRN Administration Pain Rated 1-3 Amoxicillin/Clavulanate Potassium 1 tablet 03/12/24 21:00 Amoxicillin/Clavulanate K 875-125 Mg Tab PO 03/19/24 09:01 Q12HR YARA Atorvastatin Calcium 80 mg 03/05/24 21:00 03/11/24 20:38 Atorvastatin 40 Mg Tablet PO 80 mg HS YARA Administration Carvedilol 3.125 mg 03/05/24 09:00 03/12/24 08:44 Carvedilol 3.125 Mg Tablet PO 3.125 mg Q12HR YARA Administration Folic Acid 1 mg 03/05/24 09:00 03/12/24 08:45 Folic Acid 1 Mg Tablet PO 1 mg DAILY YARA Administration Furosemide 10 mg 03/05/24 09:00 03/12/24 08:45 Furosemide 10 Mg Tablet PO 10 mg QAM YARA Administration Furosemide 40 mg 03/12/24 11:00 03/12/24 12:47 Furosemide 40 Mg Tablet PO 03/14/24 09:01 40 mg DAILY YARA Administration Heparin Sodium (Porcine) 5,000 units 03/05/24 09:00 03/12/24 08:44 Heparin Sodium 5,000 Units/Ml Vial SUB-Q 5,000 units Q12HR YARA Administration Hydromorphone HCl 1 mg 03/08/24 22:59 03/09/24 10:04 Hydromorphone Hcl Inj (*Crx) 1 Mg/Ml Syr IV PUSH 1 mg Q2H PRN Administration Breakthrough Pain Rated 7-10 or NPO Hydromorphone HCl 0.5 mg 03/08/24 22:59 03/12/24 03:21 Hydromorphone Hcl Inj (*Crx) 1 Mg/Ml Syr IV PUSH 0.5 mg Q2H PRN Administration Breakthrough Pain Rated 4-6 or NPO Hydroxyzine Pamoate 50 mg 03/08/24 22:59 Hydroxyzine Pamoate 25 Mg Capsule PO Q4H PRN Itching Hyoscyamine 0.125 mg 03/05/24 09:54 Hyoscyamine Sulfate 0.125 Mg Tablet SUBLINGUAL QID PRN dyspepsia Magnesium Sulfate/Dextrose 1 gm in 100 mls @ 100 mls/hr 03/07/24 16:54 Magnesium Sulf 1 Gm/D5w 100 Ml IVPB ONCE PRN Magnesium 1gm IV x one for serum magnesium <1.8. Linezolid 600 mg 03/11/24 21:00 03/12/24 08:45 Linezolid 600 Mg Tablet PO 03/19/24 09:01 600 mg Q12HR YARA Administration Loperamide HCl 2 mg 03/05/24 09:54 03/09/24 22:24 Loperamide Hcl 2 Mg Capsule PO 2 mg Q6H PRN Administration diarrhea Multivitamins/Calcium 1 tablet 03/05/24 09:00 03/12/24 08:44 Therapeutic Multivitamins/Minerals Tab (*Bkc) PO 1 tablet DAILY YARA Administration Naloxone HCl 0.1 mg 03/08/24 22:59 Naloxone Hcl 0.4 Mg/Ml Vial IV PUSH Q2M PRN Opiate Reversal Ondansetron HCl 4 mg 03/08/24 22:59 Ondansetron Inj 4 Mg/2 Ml Vial IV PUSH Q4H PRN Nausea And Vomiting Oxycodone/Acetaminophen 1 tablet 03/08/24 22:59 03/11/24 08:33 Oxycodone/Acetaminophen (*Crx) 5-325 Mg Tablet PO 1 tablet Q4H PRN Administration Pain Rated 4-6 Oxycodone/Acetaminophen 1 tab 03/08/24 22:59 03/12/24 10:20 Oxycodone/Acetaminophen (*Crx) 10-325 Mg Tablet PO 1 tab Q6H PRN Administration Pain Rated 7-10 Pantoprazole Sodium 40 mg 03/08/24 21:00 03/12/24 08:44 Pantoprazole Sodium Iv 40 Mg Vial IV PUSH 40 mg Q12HR YARA Administration Polyethylene Glycol 17 gm 03/09/24 09:00 03/12/24 08:44 Polyethylene Glycol 3350 17 Gm Powd.Pack PO 17 gm QAM YARA Administration Potassium Chloride 20 meq 03/11/24 09:00 03/12/24 08:46 Potassium Chloride 20 Meq Packet (For Liquid) PO 20 meq DAILY YARA Administration Sacubitril/Valsartan 1 tab 03/05/24 09:00 03/12/24 08:45 Sacubitril/Valsartan 24-26 Mg Tablet PO 1 tab Q12HR YARA Administration Senna/Docusate Sodium 2 tab 03/09/24 09:00 03/12/24 08:44 Senna/Docusate Sodium Tablet PO 2 tab Q12HR YARA Administration Radiology Results: ITS Impressions Head CT 03/04/24 19:10 IMPRESSION: No acute intracranial process. Chest X-Ray 03/04/24 19:12 IMPRESSION: No acute cardiopulmonary process. Hip/Pelvis X-Ray 03/04/24 19:15 IMPRESSION: Comminuted intertrochanteric fracture of the left femur. Chest/Abdomen/Pelvis CT 03/07/24 13:10 IMPRESSION: 1. Comminuted intertrochanteric fracture of proximal left femur. 2. 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 3. Distended rectosigmoid, likely adynamic ileus. 4. 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 Scrotum Ultrasound 03/09/24 14:32 IMPRESSION: No evidence of torsion or epididymo-orchitis. Bilateral hydroceles. Left epididymal cyst. Inflammatory changes around the testicles which are most likely suggestive of cellulitis. Follow-up advised. Otherwise, normal testicular ultrasound. Abdomen/Pelvis CT 03/11/24 10:17 IMPRESSION: 1. Persistent liquid stool throughout the colon consistent with nonspecific diarrhea. No bowel obstruction. 2. Cholelithiasis. 3. Nonobstructing right nephrolithiasis. 4. Chronic interstitial lung disease with associated mild bronchiectasis in the visualized lower lungs. 5. Unchanged 3.5 cm fusiform infrarenal abdominal aortic aneurysm. 6. Interval reduction and internal fixation of the recent comminuted in tratrochanteric fracture of the proximal left femur. Arterial/Peripheral Duplex 03/12/24 11:12 IMPRESSION: 1. Normal flow in main portal vein. 2. Decreased pulsatility of the hepatic veins, which may be seen with liver disease, hepatic vein thrombosis, or hepatic venous outflow obstruction. Labs Labs: Laboratory Results - last 24 hr 03/11/24 03/12/24 12:31 06:05 WBC 4.3 L RBC 2.80 L Hgb 7.9 L Hct 24.4 L MCV 87.1 MCH 28.2 MCHC 32.4 RDW 13.4 Plt Count 116 L MPV 11.1 H Sodium 136 L Potassium 3.4 3.1 L Chloride 111 H Carbon Dioxide 22 Anion Gap 3 L BUN 19 Creatinine 0.62 L Estim Creat Clear Calc 87 Estimated GFR > 60 Glucose 120 H Calcium 7.5 L Total Bilirubin 1.0 AST 70 H ALT 34 Alkaline Phosphatase 74 Total Protein 5.0 L Albumin 2.3 L Quality VTE Prophylaxis VTE prophylaxis: mechanical ordered Hospitalist MIPS Advance Care Plan I have confirmed that the patient's Advanced Care Plan is present, code status is documented, or surrogate decision maker is listed in patient medical record.: Yes Medication Reconciliation I have utilized all available resources to obtain, update and review the patients current medications (includes all prescriptions, OTC, herbals, cannabis, and nutritional supplements).: Yes
[2024-03-12 14:26] LABS: IFOB Positive Control Positive; Immunochemical Fecal Occult Bl Negative (N)
[2024-03-12] MEDS: ACETAMINOPHEN 500 MG TABLET PO (14:53)
[2024-03-12] MEDS: hydrOXYzine pamoate 25 MG CAPSULE 50 MG PO (22:01)
[2024-03-12] MEDS: ATORVASTATIN 40 MG TABLET 80 MG PO (22:01)
[2024-03-12] MEDS: AMOXICILLIN/CLAVULANATE K 875-125 MG TAB 1 TABLET PO (22:02)
[2024-03-13] VITALS (10 sets, daily range): BP systolic 90–94; BP diastolic 40–48; PULSE 52–94; RESP 18–20; TEMP 36.1–37.3; O2SAT 98–100
[2024-03-13 06:39] LABS: Alanine Aminotransferase 36 U/L (6-50); Albumin Level 2.5 g/dL (3.5-5.1); Alkaline Phosphatase 84 U/L (38-126); Anion Gap 3 mmol/L (4-12); Aspartate Amino Transferase 63 U/L (17-59); Bilirubin,Total 1.3 mg/dL (0.2-1.3); Blood Urea Nitrogen 20 mg/dL (9-20); Carbon Dioxide 23 mmol/L (22-30); Chloride 112 mmol/L (98-107); Estimated CRCL calculation 79 ml/min; Estimated Glomerular Filt Rate > 60; Glucose 110 mg/dL (65-110); Potassium 3.1 mmol/L (3.4-5.0); Sodium 138 mmol/L (137-145)
[2024-03-13 06:55] LABS: Hematocrit 25.6 % (42.0-52.0); Hemoglobin 8.1 g/dL (14.0-18.0); Mean Corpuscular HGB Conc 31.6 g/dl (32-36); Mean Corpuscular Hemoglobin 28.8 pg (26-34); Mean Corpuscular Volume 91.1 fl (80-100); Mean Platelet Volume 11.9 fl (7.4-10.4); Platelet Count Result 137 k/mm3 (150-375); Red Blood Count 2.81 M/mm3 (4.6-6.20); Red Cell Distribution Width 13.4 % (11.5-14.5); White Blood Count 4.5 K/mm3 (4.5-10.0)
--- NOTE | 2024-03-13 08:19 | P.PNIM_ITS ---
Progress Note: A&P Assessment and Plan (1) Ground-level fall: Code(s): W18.30XA - Fall on same level, unspecified, initial encounter Status: Acute (2) Closed intertrochanteric fracture of femur: Qualifiers: Encounter type: initial encounter Fracture alignment: displaced Laterality: left Qualified Code(s): S72.142A - Displaced intertrochanteric fracture of left femur, initial encounter for closed fracture Code(s): S72.143A - Displaced intertrochanteric fracture of unspecified femur, initial encounter for closed fracture Status: Acute (3) Alcoholism: Code(s): F10.20 - Alcohol dependence, uncomplicated Status: Acute Assessment and Plan: Delete (4) Cardiomyopathy: Code(s): I42.9 - Cardiomyopathy, unspecified Status: Acute (5) Atrial fibrillation with RVR: Code(s): I48.91 - Unspecified atrial fibrillation Status: Acute (6) Pulmonary embolism: Qualifiers: Acute cor pulmonale presence: without acute cor pulmonale Chronicity: acute Pulmonary embolism type: unspecified Qualified Code(s): I26.99 - Other pulmonary embolism without acute cor pulmonale Code(s): I26.99 - Other pulmonary embolism without acute cor pulmonale Status: Acute (7) Parkinsons disease: Code(s): G20 - Parkinson's disease Status: Acute (8) Thrombocytopenia: Code(s): D69.6 - Thrombocytopenia, unspecified Status: Acute (9) Anemia: Code(s): D64.9 - Anemia, unspecified Status: Acute Plan This is an 83-year-old male presented to the ED/12/17 after a ground level fall mechanical while using his walker. Patient was unable to get back up. No loss of consciousness. Hip pain. Workup revealed comminuted intertrochanteric fracture of left femur. Patient was admitted for further treatment. CT head was negative. Chest x-ray with no acute cardiopulmonary process. Orthopedic was consulted. Planned left hip cephalomedullary nailing. Anemia been down to 7.4 received 2 unit of transfusion. Hemoglobin of 10 today. No signs of bleeding. Could be hemodilution now as he has received 10 L +since admission. CTA chest abdomen pelvis with no bleeding. Findings of adynamic ileus Fall ORIF femur intertrochanteric fracture with cephalomedullary nail, left on 03/08. Scrotal redness US shows possible cellulitis Ordered Zyvox and continue ceftriaxone Adynamic ileus Having bowel movement now. Advance diet as tolerate Surgery consulted Continue to monitor Alcoholism History of alcoholism has not drank since 5 years. 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 Congestive heart failure with reduced ejection fracture line coronary artery disease EF 30-35% in the past last echo 2021 with EF% Abdominal aortic aneurysm AFib chronic rate controlled anticoagulated which is on hold for the surgery Parkinson's disease History of DVT/PE on chronic anticoagulation Acute on Chronic anemia. Received 2 U PRBC on 03/07 CT chest abdomen pelvis reviewed Ferritin 46.5. B12 731 more than 20. Check stool for occult blood. Thrombocytopenia improved fluctuating upon review previous labs. Likely due to chronic alcoholism. As per GI :Ordered US retroperitoneal duplex ltd demonstrated decreased blood flow in the hepatic veins, although no definitive obstruction or thrombosis was identified. These findings are suggestive of chronic liver disease or cirrhosis. While a FibroScan would be the ideal diagnostic tool, it is currently unavailable but is expected to arrive in the coming weeks. In the meantime, a non-invasive blood-based liver fibrosis panel will be ordered. Regarding the patient's iron deficiency anemia, a colonoscopy and upper endoscopy are indicated for evaluation. However, due to his recent hip surgery, these procedures are currently contraindicated and will be scheduled as outpatient procedures GI consulted and appreciate recs DVT prophylaxis on SCDs. Used to be on apixaban prior to admission Code status full code Subjective Date/time seen: 03/13/24 08:19 Interval history: Scrotal swelling is getting better but not to the baseline. GI is consulted for anemia evaluation. Review of Systems Review of Systems: Fall, left hip pain with movement, unable to bear weight. All systems reviewed & are unremarkable except as noted in HPI and below Exam Narrative: GENERAL APPEARANCE: Appears to be in no acute distress. HEAD: normocephalic atraumatic EYES: PERRL, EOMI. Vision grossly intact. CARDIAC: Normal S1/S2. Rhythm is regular. No murmurs, rubs, or gallops. No cyanosis or pallor. LUNGS: Clear to auscultation without rales, rhonchi, wheezing or diminished breath sounds. Respirations even and unlabored. ABDOMEN: BS positive x 4 quadrants. Soft, mildly distended, nontender. No guarding or rebound. MSK: Distal nv sensation intact blle. Pain to palpation of left hip. PERIPHERAL VASCULAR: Peripheral pulses palpable. Normal perfusion, cap refill <2 seconds. No edema. NEURO: Follows commands. No focal deficits. SKIN: [place] without lesions or eruptions. PSYCH: Stable, no paranoia or delusional thinking. Const: General: comfortable, no acute distress, well developed, alert, awake, average body habitus and thin Nutritional Appearance: average body habitus and thin Orientation/consciousness: patient oriented x3 Other: Well-appearing HENMT: Head: normal to inspection, normocephalic and atraumatic Ears: hearing grossly normal bilaterally Face/Nose/Sinus: normal facial exam Face and sinus: normal facial exam Eyes: General: appearance normal, both eyes and all related structures Pupils: Equal, round and reactive pupils present EOM: EOMs intact bilaterally Neck: Neck: full ROM, no lymphadenopathy and no JVD Thyroid: thyroid normal Lymphatic: no lymphadenopathy noted Resp: Effort & Inspection: normal respiratory effort and able to speak in complete sentences Auscultation: clear to auscultation bilaterally Cardio: Jugular venous distension: no JVD Rate: regular rate Rhythm: regular rhythm Heart sounds: S1 normal heart sound present and S2 normal heart sound present : General: Yes deferred Skin: Rashes: no rashes Wounds: no wounds Neuro: General: patient oriented x3, CN's II-XI intact bilaterally and Unable to assess gait Cranial nerves: Yes CN's II-XII intact bilaterally and Yes Equal, round and reactive pupils present Cognition (Neuro): normal cognition Speech: normal speech Gait exam (Neuro): Unable to assess gait Motor exam (neuro): 5/5 motor strength present throughout Extrem: Other: Left leg is externally rotated and shortened Objective Data Vital Signs Vital Signs: Vital Signs - 24 hr 03/12/24 08:44 03/12/24 12:00 03/12/24 14:00 Temperature 98.2 F Pulse Rate 90 78 71 Respiratory Rate 18 Blood Pressure 98/52 L Pulse Oximetry 99 Oxygen Delivery 03/12/24 16:00 03/12/24 20:00 03/12/24 20:00 Temperature Pulse Rate 80 96 Respiratory Rate Blood Pressure Pulse Oximetry Oxygen Delivery Room Air 03/12/24 20:50 03/13/24 00:00 03/13/24 04:00 Temperature 98.6 F Pulse Rate 44 L 89 94 Respiratory Rate 20 Blood Pressure 109/50 L Pulse Oximetry 100 Oxygen Delivery 03/13/24 05:45 Temperature 97 F L Pulse Rate 55 L Respiratory Rate 18 Blood Pressure 91/48 L Pulse Oximetry 98 Oxygen Delivery Intake/Output Intake/Output: Intake & Output 03/10/24 03/11/24 03/12/24 03/13/24 23:59 23:59 23:59 23:59 Intake Total 2607 730 1580 300 Output Total 700 1250 1000 400 Balance 1907 -520 580 -100 Meds/Results Medications: Active Medications Generic Name Dose Route Start Last Admin Trade Name Freq PRN Reason Stop Dose Admin Acetaminophen 500 mg 03/08/24 22:59 03/12/24 14:53 Acetaminophen 500 Mg Tablet PO 500 mg Q6H PRN Administration Pain Rated 1-3 Amoxicillin/Clavulanate Potassium 1 tablet 03/12/24 21:00 03/12/24 22:02 Amoxicillin/Clavulanate K 875-125 Mg Tab PO 03/19/24 09:01 1 tablet Q12HR YARA Administration Atorvastatin Calcium 80 mg 03/05/24 21:00 03/12/24 22:01 Atorvastatin 40 Mg Tablet PO 80 mg HS YARA Administration Carvedilol 3.125 mg 03/05/24 09:00 03/12/24 22:02 Carvedilol 3.125 Mg Tablet PO 3.125 mg Q12HR YARA Administration Folic Acid 1 mg 03/05/24 09:00 03/12/24 08:45 Folic Acid 1 Mg Tablet PO 1 mg DAILY YARA Administration Furosemide 10 mg 03/05/24 09:00 03/12/24 08:45 Furosemide 10 Mg Tablet PO 10 mg QAM YARA Administration Furosemide 40 mg 03/12/24 11:00 03/12/24 12:47 Furosemide 40 Mg Tablet PO 03/14/24 09:01 40 mg DAILY YARA Administration Heparin Sodium (Porcine) 5,000 units 03/05/24 09:00 03/12/24 22:02 Heparin Sodium 5,000 Units/Ml Vial SUB-Q 5,000 units Q12HR YARA Administration Hydromorphone HCl 1 mg 03/08/24 22:59 03/09/24 10:04 Hydromorphone Hcl Inj (*Crx) 1 Mg/Ml Syr IV PUSH 1 mg Q2H PRN Administration Breakthrough Pain Rated 7-10 or NPO Hydromorphone HCl 0.5 mg 03/08/24 22:59 03/12/24 03:21 Hydromorphone Hcl Inj (*Crx) 1 Mg/Ml Syr IV PUSH 0.5 mg Q2H PRN Administration Breakthrough Pain Rated 4-6 or NPO Hydroxyzine Pamoate 50 mg 03/08/24 22:59 03/12/24 22:01 Hydroxyzine Pamoate 25 Mg Capsule PO 50 mg Q4H PRN Administration Itching Hyoscyamine 0.125 mg 03/05/24 09:54 Hyoscyamine Sulfate 0.125 Mg Tablet SUBLINGUAL QID PRN dyspepsia Magnesium Sulfate/Dextrose 1 gm in 100 mls @ 100 mls/hr 03/07/24 16:54 Magnesium Sulf 1 Gm/D5w 100 Ml IVPB ONCE PRN Magnesium 1gm IV x one for serum magnesium <1.8. Linezolid 600 mg 03/11/24 21:00 03/12/24 22:02 Linezolid 600 Mg Tablet PO 03/19/24 09:01 600 mg Q12HR YARA Administration Loperamide HCl 2 mg 03/05/24 09:54 03/09/24 22:24 Loperamide Hcl 2 Mg Capsule PO 2 mg Q6H PRN Administration diarrhea Multivitamins/Calcium 1 tablet 03/05/24 09:00 03/12/24 08:44 Therapeutic Multivitamins/Minerals Tab (*Bkc) PO 1 tablet DAILY YARA Administration Naloxone HCl 0.1 mg 03/08/24 22:59 Naloxone Hcl 0.4 Mg/Ml Vial IV PUSH Q2M PRN Opiate Reversal Ondansetron HCl 4 mg 03/08/24 22:59 Ondansetron Inj 4 Mg/2 Ml Vial IV PUSH Q4H PRN Nausea And Vomiting Oxycodone/Acetaminophen 1 tablet 03/08/24 22:59 03/11/24 08:33 Oxycodone/Acetaminophen (*Crx) 5-325 Mg Tablet PO 1 tablet Q4H PRN Administration Pain Rated 4-6 Oxycodone/Acetaminophen 1 tab 03/08/24 22:59 03/12/24 22:01 Oxycodone/Acetaminophen (*Crx) 10-325 Mg Tablet PO 1 tab Q6H PRN Administration Pain Rated 7-10 Pantoprazole Sodium 40 mg 03/08/24 21:00 03/12/24 22:03 Pantoprazole Sodium Iv 40 Mg Vial IV PUSH 40 mg Q12HR YARA Administration Polyethylene Glycol 17 gm 03/09/24 09:00 03/12/24 08:44 Polyethylene Glycol 3350 17 Gm Powd.Pack PO 17 gm QAM YARA Administration Potassium Chloride 20 meq 03/11/24 09:00 03/12/24 08:46 Potassium Chloride 20 Meq Packet (For Liquid) PO 20 meq DAILY YARA Administration Sacubitril/Valsartan 1 tab 03/05/24 09:00 03/12/24 22:02 Sacubitril/Valsartan 24-26 Mg Tablet PO 1 tab Q12HR YARA Administration Senna/Docusate Sodium 2 tab 03/09/24 09:00 03/12/24 22:02 Senna/Docusate Sodium Tablet PO 2 tab Q12HR YARA Administration Radiology Results: ITS Impressions Head CT 03/04/24 19:10 IMPRESSION: No acute intracranial process. Chest X-Ray 03/04/24 19:12 IMPRESSION: No acute cardiopulmonary process. Hip/Pelvis X-Ray 03/04/24 19:15 IMPRESSION: Comminuted intertrochanteric fracture of the left femur. Chest/Abdomen/Pelvis CT 03/07/24 13:10 IMPRESSION: 1. Comminuted intertrochanteric fracture of proximal left femur. 2. 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 3. Distended rectosigmoid, likely adynamic ileus. 4. 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 Scrotum Ultrasound 03/09/24 14:32 IMPRESSION: No evidence of torsion or epididymo-orchitis. Bilateral hydroceles. Left epididymal cyst. Inflammatory changes around the testicles which are most likely suggestive of cellulitis. Follow-up advised. Otherwise, normal testicular ultrasound. Abdomen/Pelvis CT 03/11/24 10:17 IMPRESSION: 1. Persistent liquid stool throughout the colon consistent with nonspecific diarrhea. No bowel obstruction. 2. Cholelithiasis. 3. Nonobstructing right nephrolithiasis. 4. Chronic interstitial lung disease with associated mild bronchiectasis in the visualized lower lungs. 5. Unchanged 3.5 cm fusiform infrarenal abdominal aortic aneurysm. 6. Interval reduction and internal fixation of the recent comminuted intratrochanteric fracture of the proximal left femur. Arterial/Peripheral Duplex 03/12/24 11:12 IMPRESSION: 1. Normal flow in main portal vein. 2. Decreased pulsatility of the hepatic veins, which may be seen with liver disease, hepatic vein thrombosis, or hepatic venous outflow obstruction. Labs Labs: Laboratory Results - last 24 hr 03/12/24 03/13/24 13:33 06:03 WBC 4.5 RBC 2.81 L Hgb 8.1 L Hct 25.6 L MCV 91.1 MCH 28.8 MCHC 31.6 L RDW 13.4 Plt Count 137 L MPV 11.9 H Sodium 138 Potassium 3.1 L Chloride 112 H Carbon Dioxide 23 Anion Gap 3 L BUN 20 Creatinine 0.69 L Estim Creat Clear Calc 79 Estimated GFR > 60 Glucose 110 Calcium 8.0 L Total Bilirubin 1.3 AST 63 H ALT 36 Alkaline Phosphatase 84 Total Protein 5.0 L Albumin 2.5 L Stl Occult Blood (IFOB) Negative Quality VTE Prophylaxis VTE prophylaxis: mechanical ordered Hospitalist [facility] Advance Care Plan I have confirmed that the patient's Advanced Care Plan is present, code status is documented, or surrogate decision maker is listed in patient medical record.: Yes Medication Reconciliation I have utilized all available resources to obtain, update and review the patients current medications (includes all prescriptions, OTC, herbals, cannabis, and nutritional supplements).: Yes
[2024-03-13] MEDS: FUROSEMIDE 10 MG TABLET PO (09:03)
[2024-03-13] MEDS: THERAPEUTIC MULTIVITAMINS/MINERALS TAB (*BKC) 1 TABLET PO (09:03)
[2024-03-13] MEDS: POTASSIUM CHLORIDE 20 MEQ ER TABLET 40 MEQ PO (09:03)
[2024-03-13] MEDS: LINEZOLID 600 MG TABLET PO ×2 (09:03→20:52)
[2024-03-13] MEDS: FOLIC ACID 1 MG TABLET PO (09:03)
[2024-03-13] MEDS: carvediloL 3.125 MG TABLET PO ×2 (09:03→20:50)
[2024-03-13] MEDS: SENNA/DOCUSATE SODIUM TABLET 2 TAB PO ×2 (09:03→20:52)
[2024-03-13] MEDS: FUROSEMIDE 40 MG TABLET PO (09:03)
[2024-03-13] MEDS: AMOXICILLIN/CLAVULANATE K 875-125 MG TAB 1 TABLET PO ×2 (09:03→20:52)
[2024-03-13] MEDS: SACUBITRIL/VALSARTAN 24-26 MG TABLET 1 TAB PO ×2 (09:03→20:50)
[2024-03-13] MEDS: POTASSIUM CHLORIDE 20 MEQ PACKET (FOR LIQUID) PO (09:04)
[2024-03-13] MEDS: HEPARIN SODIUM 5,000 UNITS/ML VIAL 5000 UNITS SUB-Q ×2 (09:04→20:49)
[2024-03-13] MEDS: polyethylene glycoL 3350 17 GM POWD.PACK PO (09:04)
[2024-03-13] MEDS: oxyCODONE/ACETAMINOPHEN (*CRX) 10-325 MG TABLET 1 TAB PO (09:06)
[2024-03-13] MEDS: PANTOPRAZOLE SODIUM IV 40 MG VIAL IV PUSH ×2 (12:58→20:54)
[2024-03-13 13:09] LABS: Magnesium 2.1 mg/dL (1.6-2.3)
--- NOTE | 2024-03-13 13:18 | PCSTNOTE ---
Bedside Swallow Evaluation This pleasant 83 year old male patient was referred for a bedside swallow evaluation d/t coughing while taking his pills this morning (03/13). The pt was admitted to [facility] on 03/04 d/t a fall. The pt has a hx of stroke and Parkinson?s Disease. An oral motor exam was completed in which the pt demonstrated appropriate range of mobility and strength for oral intake. The pt has full upper and lower dentures and reports no trouble with masticating. Upon arrival, the pts , Evette, provided ST with some history regarding the pts swallow. He has received a MBSS before and it was recommended for him to utilize a chin tuck when eating/drinking as well as utilize thickener when consuming liquids (Evette was unable to state which level of thickener this date). Evette stated that the patient would not use thickener and did not follow the recommendations from the previous MBSS. Evette additionally stated that the pt has the most trouble when taking pills. Trials of thin liquid (ice chips, water), mixed consistency (fruit cocktail), extremely thick liquid (pudding), and solids (china cracker) were administered at bedside via cup edge, spoon, and straw. Throughout the bedside swallow evaluation, the pt demonstrated one s/s of aspiration after a trial of pudding when the patient coughed and swallowed again. The pt and the pts Evette verbalized that he feels like his stomach is full of air, and the pt would continuously demonstrate eructation throughout the swallow study stating that it ?made him feel better?. The pt?s vocal quality remained clear after all trials. Oral transit was timely. No oral residue observed. Laryngeal elevation was adequate and timely for all swallows. Please note that silent aspiration cannot be ruled out at bedside. Given the results of this assessment, it is recommended this pt receive an oral diet of regular solids (IDDSI Level 7) and thin liquids (IDDSI Level 1). It is recommended that the pt have 1:1 supervision during meals to ensure alertness and to help with set-up assist. It is also recommended that the pt have his pills crushed and put into pudding for easier oral transit. The pt should take small bites/sips and sit upright during and after meals for at least [address] is warranted at this time. Thank you for this referral. Dr. Cleveland and LUL Mendes were notified of BSE results and recommendations. Thank you for this referral.
--- NOTE | 2024-03-13 14:03 | WPDGIPROGNO ---
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 Liver fibrosis panel ordered, still pending. We gave our contact numbers to the patient's in order to get a FibroScan as an outpatient when available. Will sign off for now, I will be glad to reassess patient if needed. Subjective Date/time seen: 03/13/24 14:03 Interval history: No change in current status. Patient getting rehabilitation for his right hip surgery. Objective Data Vital Signs Vital Signs: Vital Signs - 24 hr 03/12/24 16:00 03/12/24 20:00 03/12/24 20:00 Temperature Pulse Rate 80 96 Respiratory Rate Blood Pressure Pulse Oximetry Oxygen Delivery Room Air 03/12/24 20:50 03/13/24 00:00 03/13/24 04:00 Temperature 98.6 F Pulse Rate 44 L 89 94 Respiratory Rate 20 Blood Pressure 109/50 L Pulse Oximetry 100 Oxygen Delivery 03/13/24 05:45 03/13/24 09:17 Temperature 97 F L Pulse Rate 55 L Respiratory Rate 18 Blood Pressure 91/48 L Pulse Oximetry 98 Oxygen Delivery Room Air Intake/Output Intake/Output: Intake & Output 03/10/24 03/11/24 03/12/24 03/13/24 23:59 23:59 23:59 23:59 Intake Total 2607 730 1580 420 Output Total 700 1250 1000 400 Balance 1907 -520 580 20 Meds/Results Medications: Active Medications Generic Name Dose Route Start Last Admin Trade Name Kevynq PRN Reason Stop Dose Admin Acetaminophen 500 mg 03/08/24 22:59 03/12/24 14:53 Acetaminophen 500 Mg Tablet PO 500 mg Q6H PRN Administration Pain Rated 1-3 Amoxicillin/Clavulanate Potassium 1 tablet 03/12/24 21:00 03/13/24 09:03 Amoxicillin/Clavulanate K 875-125 Mg Tab PO 03/19/24 09:01 1 tablet Q12HR YARA Administration Atorvastatin Calcium 80 mg 03/05/24 21:00 03/12/24 22:01 Atorvastatin 40 Mg Tablet PO 80 mg HS YARA Administration Carvedilol 3.125 mg 03/05/24 09:00 03/13/24 09:03 Carvedilol 3.125 Mg Tablet PO 3.125 mg Q12HR YARA Administration Folic Acid 1 mg 03/05/24 09:00 03/13/24 09:03 Folic Acid 1 Mg Tablet PO 1 mg DAILY YARA Administration Furosemide 10 mg 03/05/24 09:00 03/13/24 09:03 Furosemide 10 Mg Tablet PO 10 mg QAM YARA Administration Furosemide 40 mg 03/12/24 11:00 03/13/24 09:03 Furosemide 40 Mg Tablet PO 03/14/24 09:01 40 mg DAILY YARA Administration Heparin Sodium (Porcine) 5,000 units 03/05/24 09:00 03/13/24 09:04 Heparin Sodium 5,000 Units/Ml Vial SUB-Q 5,000 units Q12HR YARA Administration Hydromorphone HCl 1 mg 03/08/24 22:59 03/09/24 10:04 Hydromorphone Hcl Inj (*Crx) 1 Mg/Ml Syr IV PUSH 1 mg Q2H PRN Administration Breakthrough Pain Rated 7-10 or NPO Hydromorphone HCl 0.5 mg 03/08/24 22:59 03/12/24 03:21 Hydromorphone Hcl Inj (*Crx) 1 Mg/Ml Syr IV PUSH 0.5 mg Q2H PRN Administration Breakthrough Pain Rated 4-6 or NPO Hydroxyzine Pamoate 50 mg 03/08/24 22:59 03/12/24 22:01 Hydroxyzine Pamoate 25 Mg Capsule PO 50 mg Q4H PRN Administration Itching Hyoscyamine 0.125 mg 03/05/24 09:54 Hyoscyamine Sulfate 0.125 Mg Tablet SUBLINGUAL QID PRN dyspepsia Magnesium Sulfate/Dextrose 1 gm in 100 mls @ 100 mls/hr 03/07/24 16:54 Magnesium Sulf 1 Gm/D5w 100 Ml IVPB ONCE PRN Magnesium 1gm IV x one for serum magnesium <1.8. Linezolid 600 mg 03/11/24 21:00 03/13/24 09:03 Linezolid 600 Mg Tablet PO 03/19/24 09:01 600 mg Q12HR YAAR Administration Loperamide HCl 2 mg 03/05/24 09:54 03/09/24 22:24 Loperamide Hcl 2 Mg Capsule PO 2 mg Q6H PRN Administration diarrhea Multivitamins/Calcium 1 tablet 03/05/24 09:00 03/13/24 09:03 Therapeutic Multivitamins/Minerals Tab (*Bkc) PO 1 tablet DAILY YARA Administration Naloxone HCl 0.1 mg 03/08/24 22:59 Naloxone Hcl 0.4 Mg/Ml Vial IV PUSH Q2M PRN Opiate Reversal Ondansetron HCl 4 mg 03/08/24 22:59 Ondansetron Inj 4 Mg/2 Ml Vial IV PUSH Q4H PRN Nausea And Vomiting Oxycodone/Acetaminophen 1 tablet 03/08/24 22:59 03/11/24 08:33 Oxycodone/Acetaminophen (*Crx) 5-325 Mg Tablet PO 1 tablet Q4H PRN Administration Pain Rated 4-6 Oxycodone/Acetaminophen 1 tab 03/08/24 22:59 03/13/24 09:06 Oxycodone/Acetaminophen (*Crx) 10-325 Mg Tablet PO 1 tab Q6H PRN Administration Pain Rated 7-10 Pantoprazole Sodium 40 mg 03/08/24 21:00 03/13/24 12:58 Pantoprazole Sodium Iv 40 Mg Vial IV PUSH 40 mg Q12HR YARA Administration Polyethylene Glycol 17 gm 03/09/24 09:00 03/13/24 09:04 Polyethylene Glycol 3350 17 Gm Powd.Pack PO 17 gm QAM YARA Administration Potassium Chloride 20 meq 03/11/24 09:00 03/13/24 09:04 Potassium Chloride 20 Meq Packet (For Liquid) PO 20 meq DAILY YARA Administration Sacubitril/Valsartan 1 tab 03/05/24 09:00 03/13/24 09:03 Sacubitril/Valsartan 24-26 Mg Tablet PO 1 tab Q12HR YARA Administration Senna/Docusate Sodium 2 tab 03/09/24 09:00 03/13/24 09:03 Senna/Docusate Sodium Tablet PO 2 tab Q12HR YARA Administration Radiology Results: ITS Impressions Head CT 03/04/24 19:10 IMPRESSION: No acute intracranial process. Chest X-Ray 03/04/24 19:12 IMPRESSION: No acute cardiopulmonary process. Hip/Pelvis X-Ray 03/04/24 19:15 IMPRESSION: Comminuted intertrochanteric fracture of the left femur. Chest/Abdomen/Pelvis CT 03/07/24 13:10 IMPRESSION: 1. Comminuted intertrochanteric fracture of proximal left femur. 2. 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 3. Distended rectosigmoid, likely adynamic ileus. 4. 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 Scrotum Ultrasound 03/09/24 14:32 IMPRESSION: No evidence of torsion or epididymo-orchitis. Bilateral hydroceles. Left epididymal cyst. Inflammatory changes around the testicles which are most likely suggestive of cellulitis. Follow-up advised. Otherwise, normal testicular ultrasound. Abdomen/Pelvis CT 03/11/24 10:17 IMPRESSION: 1. Persistent liquid stool throughout the colon consistent with nonspecific diarrhea. No bowel obstruction. 2. Cholelithiasis. 3. Nonobstructing right nephrolithiasis. 4. Chronic interstitial lung disease with associated mild bronchiectasis in the visualized lower lungs. 5. Unchanged 3.5 cm fusiform infrarenal abdominal aortic aneurysm. 6. Interval reduction and internal fixation of the recent comminuted intratrochanteric fracture of the proximal left femur. Arterial/Peripheral Duplex 03/12/24 11:12 IMPRESSION: 1. Normal flow in main portal vein. 2. Decreased pulsatility of the hepatic veins, which may be seen with liver disease, hepatic vein thrombosis, or hepatic venous outflow obstruction. Labs Labs: Laboratory Results - last 24 hr 03/12/24 03/13/24 03/13/24 13:33 06:03 12:39 WBC 4.5 RBC 2.81 L Hgb 8.1 L Hct 25.6 L MCV 91.1 MCH 28.8 MCHC 31.6 L RDW 13.4 Plt Count 137 L MPV 11.9 H Sodium 138 Potassium 3.1 L 3.0 L Chloride 112 H Carbon Dioxide 23 Anion Gap 3 L BUN 20 Creatinine 0.69 L Estim Creat Clear Calc 79 Estimated GFR > 60 Glucose 110 Calcium 8.0 L Magnesium 2.1 Total Bilirubin 1.3 AST 63 H ALT 36 Alkaline Phosphatase 84 Total Protein 5.0 L Albumin 2.5 L Stl Occult Blood (IFOB) Negative
[2024-03-13] MEDS: HYDROmorphone HCL INJ (*CRX) 1 MG/ML SYR 0.5 MG IV PUSH (15:30)
--- NOTE | 2024-03-13 20:26 | PC.NURSE ---
Pt's was adamant again that pt not be given the atorvastatin. She is convinced that it is the root of all his problems. Pt's states that Dr. ARIAS assured her that the atorvastatin would be held. I verified that the med was placed on hold compliant with pt's 's demands.
[2024-03-13] MEDS: HYDROmorphone HCL INJ (*CRX) 1 MG/ML SYR IV PUSH (20:54)
[2024-03-14] VITALS (9 sets, daily range): BP systolic 96–124; BP diastolic 31–57; PULSE 51–94; RESP 18–20; TEMP 36.5–36.9; O2SAT 100
[2024-03-14] MEDS: HYDROmorphone HCL INJ (*CRX) 1 MG/ML SYR IV PUSH ×2 (04:57→13:14)
[2024-03-14 07:07] LABS: Hematocrit 24.1 % (42.0-52.0); Hemoglobin 7.7 g/dL (14.0-18.0); Mean Corpuscular Hemoglobin 28.4 pg (26-34); Mean Corpuscular Volume 88.9 fl (80-100); Mean Platelet Volume 11.2 fl (7.4-10.4); Platelet Count Result 146 k/mm3 (150-375); Red Blood Count 2.71 M/mm3 (4.6-6.20); Red Cell Distribution Width 13.8 % (11.5-14.5); White Blood Count 4.6 K/mm3 (4.5-10.0)
[2024-03-14 07:19] LABS: Alanine Aminotransferase 36 U/L (6-50); Albumin Level 2.3 g/dL (3.5-5.1); Alkaline Phosphatase 85 U/L (38-126); Anion Gap 6 mmol/L (4-12); Aspartate Amino Transferase 66 U/L (17-59); Bilirubin,Total 1.1 mg/dL (0.2-1.3); Blood Urea Nitrogen 18 mg/dL (9-20); Calcium 7.6 mg/dL (8.4-10.2); Carbon Dioxide 23 mmol/L (22-30); Chloride 110 mmol/L (98-107); Estimated CRCL calculation 78 ml/min; Estimated Glomerular Filt Rate > 60; Glucose 109 mg/dL (65-110); Sodium 139 mmol/L (137-145)
[2024-03-14 08:51] LABS: Magnesium 2.1 mg/dL (1.6-2.3)
[2024-03-14] MEDS: FOLIC ACID 1 MG TABLET PO (09:14)
[2024-03-14] MEDS: SACUBITRIL/VALSARTAN 24-26 MG TABLET 1 TAB PO ×2 (09:14→20:51)
[2024-03-14] MEDS: carvediloL 3.125 MG TABLET PO ×2 (09:15→20:51)
[2024-03-14] MEDS: FUROSEMIDE 40 MG TABLET PO (09:15)
[2024-03-14] MEDS: SENNA/DOCUSATE SODIUM TABLET 2 TAB PO (09:15)
[2024-03-14] MEDS: HEPARIN SODIUM 5,000 UNITS/ML VIAL 5000 UNITS SUB-Q ×2 (09:15→20:51)
[2024-03-14] MEDS: LINEZOLID 600 MG TABLET PO ×2 (09:15→20:51)
[2024-03-14] MEDS: FUROSEMIDE 10 MG TABLET PO (09:15)
[2024-03-14] MEDS: AMOXICILLIN/CLAVULANATE K 875-125 MG TAB 1 TABLET PO ×2 (09:15→20:51)
[2024-03-14] MEDS: THERAPEUTIC MULTIVITAMINS/MINERALS TAB (*BKC) 1 TABLET PO (09:15)
[2024-03-14] MEDS: POTASSIUM CHLORIDE 20 MEQ PACKET (FOR LIQUID) PO (09:15)
[2024-03-14] MEDS: PANTOPRAZOLE SODIUM IV 40 MG VIAL IV PUSH ×2 (11:26→20:47)
[2024-03-14] MEDS: POTASSIUM CHLORIDE 20 MEQ ER TABLET 60 MEQ PO (11:34)
--- NOTE | 2024-03-14 15:58 | P.PNIM_ITS ---
Progress Note: A&P Assessment and Plan (1) Ground-level fall: Code(s): W18.30XA - Fall on same level, unspecified, initial encounter Status: Acute (2) Closed intertrochanteric fracture of femur: Qualifiers: Encounter type: initial encounter Fracture alignment: displaced Laterality: left Qualified Code(s): S72.142A - Displaced intertrochanteric fracture of left femur, initial encounter for closed fracture Code(s): S72.143A - Displaced intertrochanteric fracture of unspecified femur, initial encounter for closed fracture Status: Acute (3) Alcoholism: Code(s): F10.20 - Alcohol dependence, uncomplicated Status: Acute Assessment and Plan: Delete (4) Cardiomyopathy: Code(s): I42.9 - Cardiomyopathy, unspecified Status: Acute (5) Atrial fibrillation with RVR: Code(s): I48.91 - Unspecified atrial fibrillation Status: Acute (6) Pulmonary embolism: Qualifiers: Acute cor pulmonale presence: without acute cor pulmonale Chronicity: acute Pulmonary embolism type: unspecified Qualified Code(s): I26.99 - Other pulmonary embolism without acute cor pulmonale Code(s): I26.99 - Other pulmonary embolism without acute cor pulmonale Status: Acute (7) Parkinsons disease: Code(s): G20 - Parkinson's disease Status: Acute (8) Thrombocytopenia: Code(s): D69.6 - Thrombocytopenia, unspecified Status: Acute (9) Anemia: Code(s): D64.9 - Anemia, unspecified Status: Acute Plan This is an 83-year-old male presented to the ED/12/17 after a ground level fall mechanical while using his walker. Patient was unable to get back up. No loss of consciousness. Hip pain. Workup revealed comminuted intertrochanteric fracture of left femur. Patient was admitted for further treatment. CT head was negative. Chest x-ray with no acute cardiopulmonary process. Orthopedic was consulted. Planned left hip cephalomedullary nailing. Anemia been down to 7.4 received 2 unit of transfusion. Hemoglobin of 10 today. No signs of bleeding. Could be hemodilution now as he has received 10 L +since admission. CTA chest abdomen pelvis with no bleeding. Findings of adynamic ileus Fall ORIF femur intertrochanteric fracture with cephalomedullary nail, left on 03/08. Scrotal redness US shows possible cellulitis Ordered Zyvox and continue ceftriaxone Adynamic ileus Having bowel movement now. Advance diet as tolerate Surgery consulted Continue to monitor Alcoholism History of alcoholism has not drank since 5 years. 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 Congestive heart failure with reduced ejection fracture line coronary artery disease EF 30-35% in the past last echo 2021 with EF% Abdominal aortic aneurysm AFib chronic rate controlled anticoagulated which is on hold for the surgery Parkinson's disease History of DVT/PE on chronic anticoagulation Acute on Chronic anemia. Received 2 U PRBC on 03/07 CT chest abdomen pelvis reviewed Ferritin 46.5. B12 731 more than 20. Check stool for occult blood. Thrombocytopenia improved fluctuating upon review previous labs. Likely due to chronic alcoholism. As per GI :Ordered US retroperitoneal duplex ltd demonstrated decreased blood flow in the hepatic veins, although no definitive obstruction or thrombosis was identified. These findings are suggestive of chronic liver disease or cirrhosis. While a FibroScan would be the ideal diagnostic tool, it is currently unavailable but is expected to arrive in the coming weeks. In the meantime, a non-invasive blood-based liver fibrosis panel will be ordered. Regarding the patient's iron deficiency anemia, a colonoscopy and upper endoscopy are indicated for evaluation. However, due to his recent hip surgery, these procedures are currently contraindicated and will be scheduled as outpatient procedures Liver fibrosis panel is pending GI consulted and signed off DVT prophylaxis on SCDs. Used to be on apixaban prior to admission Code status full code Subjective Date/time seen: 03/14/24 15:58 Interval history: Patient reports of gas. His reports whenever he takes atorvastatin he has lot of gas. Started on Levsin. 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 GI ordered Liver fibrosis panel ordered, still pending. GI signed off. His scrotal swelling/redness is improving. Pending re-evaluation from Urology. Review of Systems Review of Systems: Fall, left hip pain with movement, unable to bear weight. All systems reviewed & are unremarkable except as noted in HPI and below Exam Narrative: GENERAL APPEARANCE: Appears to be in no acute distress. HEAD: normocephalic atraumatic EYES: PERRL, EOMI. Vision grossly intact. CARDIAC: Normal S1/S2. Rhythm is regular. No murmurs, rubs, or gallops. No cyanosis or pallor. LUNGS: Clear to auscultation without rales, rhonchi, wheezing or diminished breath sounds. Respirations even and unlabored. ABDOMEN: BS positive x 4 quadrants. Soft, mildly distended, nontender. No guarding or rebound. MSK: Distal nv sensation intact blle. Pain to palpation of left hip. PERIPHERAL VASCULAR: Peripheral pulses palpable. Normal perfusion, cap refill <2 seconds. No edema. NEURO: Follows commands. No focal deficits. SKIN: [place] without lesions or eruptions. PSYCH: Stable, no paranoia or delusional thinking. Const: General: comfortable, no acute distress, well developed, alert, awake, average body habitus and thin Nutritional Appearance: average body habitus and thin Orientation/consciousness: patient oriented x3 Other: Well-appearing HENMT: Head: normal to inspection, normocephalic and atraumatic Ears: hearing grossly normal bilaterally Face/Nose/Sinus: normal facial exam Face and sinus: normal facial exam Eyes: General: appearance normal, both eyes and all related structures Pupils: Equal, round and reactive pupils present EOM: EOMs intact bilaterally Neck: Neck: full ROM, no lymphadenopathy and no JVD Thyroid: thyroid normal Lymphatic: no lymphadenopathy noted Resp: Effort & Inspection: normal respiratory effort and able to speak in complete sentences Auscultation: clear to auscultation bilaterally Cardio: Jugular venous distension: no JVD Rate: regular rate Rhythm: regular rhythm Heart sounds: S1 normal heart sound present and S2 normal heart sound present : General: Yes deferred Skin: Rashes: no rashes Wounds: no wounds Neuro: General: patient oriented x3, CN's II-XI intact bilaterally and Unable to assess gait Cranial nerves: Yes CN's II-XII intact bilaterally and Yes Equal, round and reactive pupils present Cognition (Neuro): normal cognition Speech: normal speech Gait exam (Neuro): Unable to assess gait Motor exam (neuro): 5/5 motor strength present throughout Extrem: Other: Left leg is externally rotated and shortened Objective Data Vital Signs Vital Signs: Vital Signs - 24 hr 03/13/24 16:00 03/13/24 20:00 03/13/24 20:00 Temperature Pulse Rate 88 81 Respiratory Rate Blood Pressure Pulse Oximetry Oxygen Delivery Room Air 03/13/24 20:05 03/13/24 20:50 03/14/24 00:00 Temperature 99.1 F Pulse Rate 52 L 67 90 Respiratory Rate 20 Blood Pressure 94/46 L Pulse Oximetry 98 Oxygen Delivery 03/14/24 04:00 03/14/24 05:00 03/14/24 08:00 Temperature 97.8 F Pulse Rate 76 51 L 78 Respiratory Rate 20 Blood Pressure 124/57 L Pulse Oximetry 100 Oxygen Delivery 03/14/24 08:00 03/14/24 14:00 Temperature 97.7 F Pulse Rate 78 94 Respiratory Rate 20 18 Blood Pressure 97/31 L Pulse Oximetry 100 100 Oxygen Delivery Room Air Intake/Output Intake/Output: Intake & Output 03/11/24 03/12/24 03/13/24 03/14/24 23:59 23:59 23:59 23:59 Intake Total 730 1580 760 420 Output Total 1250 1000 1400 350 Balance -520 580 -640 70 Meds/Results Medications: Active Medications Generic Name Dose Route Start Last Admin Trade Name Freq PRN Reason Stop Dose Admin Acetaminophen 500 mg 03/08/24 22:59 03/12/24 14:53 Acetaminophen 500 Mg Tablet PO 500 mg Q6H PRN Administration Pain Rated 1-3 Amoxicillin/Clavulanate Potassium 1 tablet 03/12/24 21:00 03/14/24 09:15 Amoxicillin/Clavulanate K 875-125 Mg Tab PO 03/19/24 09:01 1 tablet Q12HR YARA Administration Atorvastatin Calcium 80 mg 03/05/24 21:00 03/12/24 22:01 Atorvastatin 40 Mg Tablet PO 80 mg HS YARA Administration Carvedilol 3.125 mg 03/05/24 09:00 03/14/24 09:15 Carvedilol 3.125 Mg Tablet PO 3.125 mg Q12HR YARA Administration Folic Acid 1 mg 03/05/24 09:00 03/14/24 09:14 Folic Acid 1 Mg Tablet PO 1 mg DAILY YARA Administration Furosemide 10 mg 03/05/24 09:00 03/14/24 09:15 Furosemide 10 Mg Tablet PO 10 mg QAM YARA Administration Heparin Sodium (Porcine) 5,000 units 03/05/24 09:00 03/14/24 09:15 Heparin Sodium 5,000 Units/Ml Vial SUB-Q 5,000 units Q12HR YARA Administration Hydromorphone HCl 1 mg 03/08/24 22:59 03/14/24 13:14 Hydromorphone Hcl Inj (*Crx) 1 Mg/Ml Syr IV PUSH 1 mg Q2H PRN Administration Breakthrough Pain Rated 7-10 or NPO Hydromorphone HCl 0.5 mg 03/08/24 22:59 03/13/24 15:30 Hydromorphone Hcl Inj (*Crx) 1 Mg/Ml Syr IV PUSH 0.5 mg Q2H PRN Administration Breakthrough Pain Rated 4-6 or NPO Hydroxyzine Pamoate 50 mg 03/08/24 22:59 03/12/24 22:01 Hydroxyzine Pamoate 25 Mg Capsule PO 50 mg Q4H PRN Administration Itching Hyoscyamine 0.125 mg 03/05/24 09:54 Hyoscyamine Sulfate 0.125 Mg Tablet SUBLINGUAL QID PRN dyspepsia Magnesium Sulfate/Dextrose 1 gm in 100 mls @ 100 mls/hr 03/07/24 16:54 Magnesium Sulf 1 Gm/D5w 100 Ml IVPB ONCE PRN Magnesium 1gm IV x one for serum magnesium <1.8. Linezolid 600 mg 03/11/24 21:00 03/14/24 09:15 Linezolid 600 Mg Tablet PO 03/19/24 09:01 600 mg Q12HR YARA Administration Loperamide HCl 2 mg 03/05/24 09:54 03/09/24 22:24 Loperamide Hcl 2 Mg Capsule PO 2 mg Q6H PRN Administration diarrhea Multivitamins/Calcium 1 tablet 03/05/24 09:00 03/14/24 09:15 Therapeutic Multivitamins/Minerals Tab (*Bkc) PO 1 tablet DAILY YARA Administration Naloxone HCl 0.1 mg 03/08/24 22:59 Naloxone Hcl 0.4 Mg/Ml Vial IV PUSH Q2M PRN Opiate Reversal Ondansetron HCl 4 mg 03/08/24 22:59 Ondansetron Inj 4 Mg/2 Ml Vial IV PUSH Q4H PRN Nausea And Vomiting Oxycodone/Acetaminophen 1 tablet 03/08/24 22:59 03/11/24 08:33 Oxycodone/Acetaminophen (*Crx) 5-325 Mg Tablet PO 1 tablet Q4H PRN Administration Pain Rated 4-6 Oxycodone/Acetaminophen 1 tab 03/08/24 22:59 03/13/24 09:06 Oxycodone/Acetaminophen (*Crx) 10-325 Mg Tablet PO 1 tab Q6H PRN Administration Pain Rated 7-10 Pantoprazole Sodium 40 mg 03/08/24 21:00 03/14/24 11:26 Pantoprazole Sodium Iv 40 Mg Vial IV PUSH 40 mg Q12HR YARA Administration Polyethylene Glycol 17 gm 03/09/24 09:00 03/14/24 09:15 Polyethylene Glycol 3350 17 Gm Powd.Pack PO Not Given QAM YARA Potassium Chloride 20 meq 03/11/24 09:00 03/14/24 09:15 Potassium Chloride 20 Meq Packet (For Liquid) PO 20 meq DAILY YARA Administration Sacubitril/Valsartan 1 tab 03/05/24 09:00 03/14/24 09:14 Sacubitril/Valsartan 24-26 Mg Tablet PO 1 tab Q12HR YARA Administration Senna/Docusate Sodium 2 tab 03/09/24 09:00 03/14/24 09:15 Senna/Docusate Sodium Tablet PO 2 tab Q12HR YARA Administration Radiology Results: ITS Impressions Head CT 03/04/24 19:10 IMPRESSION: No acute intracranial process. Chest X-Ray 03/04/24 19:12 IMPRESSION: No acute cardiopulmonary process. Hip/Pelvis X-Ray 03/04/24 19:15 IMPRESSION: Comminuted intertrochanteric fracture of the left femur. Chest/Abdomen/Pelvis CT 03/07/24 13:10 IMPRESSION: 1. Comminuted intertrochanteric fracture of proximal left femur. 2. 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 3. Distended rectosigmoid, likely adynamic ileus. 4. 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 Scrotum Ultrasound 03/09/24 14:32 IMPRESSION: No evidence of torsion or epididymo-orchitis. Bilateral hydroceles. Left epididymal cyst. Inflammatory changes around the testicles which are most likely suggestive of cellulitis. Follow-up advised. Otherwise, normal testicular ultrasound. Abdomen/Pelvis CT 03/11/24 10:17 IMPRESSION: 1. Persistent liquid stool throughout the colon consistent with nonspecific diarrhea. No bowel obstruction. 2. Cholelithiasis. 3. Nonobstructing right nephrolithiasis. 4. Chronic interstitial lung disease with associated mild bronchiectasis in the visualized lower lungs. 5. Unchanged 3.5 cm fusiform infrarenal abdominal aortic aneurysm. 6. Interval reduction and internal fixation of the recent comminuted intratrochanteric fracture of the proximal left femur. Arterial/Peripheral Duplex 03/12/24 11:12 IMPRESSION: 1. Normal flow in main portal vein. 2. Decreased pulsatility of the hepatic veins, which may be seen with liver disease, hepatic vein thrombosis, or hepatic venous outflow obstruction. Labs Labs: Laboratory Results - last 24 hr 03/14/24 03/14/24 03/14/24 06:32 06:37 10:53 WBC 4.6 RBC 2.71 L Hgb 7.7 L Hct 24.1 L MCV 88.9 MCH 28.4 MCHC 32.0 RDW 13.8 Plt Count 146 L MPV 11.2 H Sodium 139 Potassium 3.0 L 3.0 L Chloride 110 H Carbon Dioxide 23 Anion Gap 6 BUN 18 Creatinine 0.70 Estim Creat Clear Calc 78 Estimated GFR > 60 Glucose 109 Calcium 7.6 L Magnesium 2.1 Total Bilirubin 1.1 AST 66 H ALT 36 Alkaline Phosphatase 85 Total Protein 5.0 L Albumin 2.3 L Quality VTE Prophylaxis VTE prophylaxis: mechanical ordered Hospitalist MIPS Advance Care Plan I have confirmed that the patient's Advanced Care Plan is present, code status is documented, or surrogate decision maker is listed in patient medical record.: Yes Medication Reconciliation I have utilized all available resources to obtain, update and review the patients current medications (includes all prescriptions, OTC, herbals, cannabis, and nutritional supplements).: Yes
[2024-03-15] VITALS (13 sets, daily range): BP systolic 85–110; BP diastolic 41–72; PULSE 69–88; RESP 12–20; TEMP 36.4–37.6; O2SAT 98–100
[2024-03-15] MEDS: HYDROmorphone HCL INJ (*CRX) 1 MG/ML SYR IV PUSH ×2 (03:12→08:39)
[2024-03-15 06:44] LABS: Hematocrit 24.5 % (42.0-52.0); Hemoglobin 7.9 g/dL (14.0-18.0); Mean Corpuscular HGB Conc 32.2 g/dl (32-36); Mean Corpuscular Hemoglobin 28.6 pg (26-34); Mean Corpuscular Volume 88.8 fl (80-100); Mean Platelet Volume 10.9 fl (7.4-10.4); Platelet Count Result 142 k/mm3 (150-375); Red Blood Count 2.76 M/mm3 (4.6-6.20)
[2024-03-15 07:00] LABS: Alanine Aminotransferase 37 U/L (6-50); Albumin Level 2.3 g/dL (3.5-5.1); Alkaline Phosphatase 98 U/L (38-126); Anion Gap 4 mmol/L (4-12); Aspartate Amino Transferase 68 U/L (17-59); Bilirubin,Total 1.1 mg/dL (0.2-1.3); Blood Urea Nitrogen 16 mg/dL (9-20); Calcium 7.8 mg/dL (8.4-10.2); Carbon Dioxide 25 mmol/L (22-30); Chloride 109 mmol/L (98-107); Estimated CRCL calculation 79 ml/min; Estimated Glomerular Filt Rate > 60; Glucose 103 mg/dL (65-110); Potassium 2.8 mmol/L (3.4-5.0); Sodium 138 mmol/L (137-145)
[2024-03-15] MEDS: carvediloL 3.125 MG TABLET PO ×2 (08:33→21:16)
[2024-03-15] MEDS: FUROSEMIDE 10 MG TABLET PO (08:34)
[2024-03-15] MEDS: HEPARIN SODIUM 5,000 UNITS/ML VIAL 5000 UNITS SUB-Q ×2 (08:34→21:17)
[2024-03-15] MEDS: FOLIC ACID 1 MG TABLET PO (08:34)
[2024-03-15] MEDS: AMOXICILLIN/CLAVULANATE K 875-125 MG TAB 1 TABLET PO ×2 (08:34→21:17)
[2024-03-15] MEDS: POTASSIUM CHLORIDE INJ 40 MEQ in SODIUM CHLORIDE 0.9% IV 500 ML 130 MEQ IVPB (08:35)
[2024-03-15] MEDS: POTASSIUM CHLORIDE 20 MEQ PACKET (FOR LIQUID) 40 MEQ PO (08:39)
[2024-03-15] MEDS: SACUBITRIL/VALSARTAN 24-26 MG TABLET 1 TAB PO (08:50)
[2024-03-15] MEDS: LINEZOLID 600 MG TABLET PO ×2 (08:50→21:16)
[2024-03-15] MEDS: POTASSIUM CHLORIDE 20 MEQ PACKET (FOR LIQUID) PO (08:50)
[2024-03-15] MEDS: THERAPEUTIC MULTIVITAMINS/MINERALS TAB (*BKC) 1 TABLET PO (08:50)
[2024-03-15] MEDS: PANTOPRAZOLE SODIUM IV 40 MG VIAL IV PUSH ×2 (08:52→21:17)
[2024-03-15 09:34] LABS: Iron 42 ug/dL (49-181)
[2024-03-15 09:43] LABS: Percent Iron Saturation 22 % (20-50)
[2024-03-15] MEDS: SIMETHICONE 80 MG TAB.CHEW PO ×2 (12:26→21:17)
[2024-03-15] MEDS: oxyCODONE/ACETAMINOPHEN (*CRX) 10-325 MG TABLET 1 TAB PO ×2 (13:39→21:16)
--- NOTE | 2024-03-15 14:12 | P.PNOP_ITS ---
Progress Note: A&P Assessment and Plan (1) Closed intertrochanteric fracture of femur: Qualifiers: Encounter type: initial encounter Fracture alignment: displaced Laterality: left Qualified Code(s): S72.142A - Displaced intertrochanteric fracture of left femur, initial encounter for closed fracture Code(s): S72.143A - Displaced intertrochanteric fracture of unspecified femur, initial encounter for closed fracture Status: Acute Assessment and Plan: Postop day 7: ORIF femur intertrochanteric fracture with cephalomedullary nail, left. No changes in care plan for orthopedic standpoint. Patient notes that his pain is improved today. Patient tolerated procedure well. No complications. Work with PT/OT. Discharge planning in progress. Will benefit from SNF/Rehab. Okay for discharge from orthopedic standpoint once cleared medically. Ortho instructions: ORIF femur intertrochanteric fracture with cephalomedullary nail, left. 03/08/24 * D/C to SNF/rehab * Xray and follow up in office or virtually if unable to make it to the office. * Wound Care: remove jarvis at 2 weeks post op. Daily dressing changes until healed. * PT: Weight bearing as tolerated with a walker. * DVT prophylaxis: continue Heparin for 30 days total * Pain medication: Tylenol. Subjective Subjective Date/Time Seen: 03/15/24 14:12 Interval history: Notes pain is better today. No complaints. He is pleased with his progress. Review of Systems Review of Systems: All systems reviewed & are unremarkable except as noted in HPI and below Exam Narrative: Normal weight 83 y/o Male. Resting comfortably in bed. Wearing compression socks bilaterally. Dressing dry and intact with no drainage. Moderate swelling. No ecchymosis. No erythema. No hematoma. Range of motion limited due to pain. Calf nontender. Thigh nontender. No varicosities. Distal pulses palpable. Objective Data Vital Signs Vital Signs: Vital Signs - 24 hr 03/14/24 16:00 03/14/24 20:00 03/14/24 20:00 Temperature Pulse Rate 77 77 81 Respiratory Rate 18 Blood Pressure Pulse Oximetry 100 Oxygen Delivery Room Air 03/14/24 20:45 03/15/24 00:00 03/15/24 04:00 Temperature 98.4 F Pulse Rate 86 84 86 Respiratory Rate 18 Blood Pressure 96/47 L Pulse Oximetry 100 Oxygen Delivery 03/15/24 04:45 03/15/24 07:20 03/15/24 08:00 Temperature 97.6 F 99.6 F Pulse Rate 87 84 Respiratory Rate 20 12 Blood Pressure 91/56 L 110/54 L Pulse Oximetry 98 100 Oxygen Delivery Room Air 03/15/24 08:33 Temperature Pulse Rate 88 Respiratory Rate Blood Pressure Pulse Oximetry Oxygen Delivery Intake/Output Intake/Output: Intake & Output 03/12/24 03/13/24 03/14/24 03/15/24 23:59 23:59 23:59 23:59 Intake Total 1580 760 920 620 Output Total 1000 1400 1200 1050 Balance 580 -640 -280 -430 Meds/Results Medications: Active Medications Generic Name Dose Route Start Last Admin Trade Name Freq PRN Reason Stop Dose Admin Acetaminophen 500 mg 03/08/24 22:59 03/12/24 14:53 Acetaminophen 500 Mg Tablet PO 500 mg Q6H PRN Administration Pain Rated 1-3 Amoxicillin/Clavulanate Potassium 1 tablet 03/12/24 21:00 03/15/24 08:34 Amoxicillin/Clavulanate K 875-125 Mg Tab PO 03/19/24 09:01 1 tablet Q12HR YARA Administration Atorvastatin Calcium 80 mg 03/05/24 21:00 03/12/24 22:01 Atorvastatin 40 Mg Tablet PO 80 mg HS YARA Administration Carvedilol 3.125 mg 03/05/24 09:00 03/15/24 08:33 Carvedilol 3.125 Mg Tablet PO 3.125 mg Q12HR YARA Administration Folic Acid 1 mg 03/05/24 09:00 03/15/24 08:34 Folic Acid 1 Mg Tablet PO 1 mg DAILY YARA Administration Furosemide 10 mg 03/05/24 09:00 03/15/24 08:34 Furosemide 10 Mg Tablet PO 10 mg QAM YARA Administration Heparin Sodium (Porcine) 5,000 units 03/05/24 09:00 03/15/24 08:34 Heparin Sodium 5,000 Units/Ml Vial SUB-Q 5,000 units Q12HR YARA Administration Hydromorphone HCl 1 mg 03/08/24 22:59 03/15/24 08:39 Hydromorphone Hcl Inj (*Crx) 1 Mg/Ml Syr IV PUSH 1 mg Q2H PRN Administration Breakthrough Pain Rated 7-10 or NPO Hydromorphone HCl 0.5 mg 03/08/24 22:59 03/13/24 15:30 Hydromorphone Hcl Inj (*Crx) 1 Mg/Ml Syr IV PUSH 0.5 mg Q2H PRN Administration Breakthrough Pain Rated 4-6 or NPO Hydroxyzine Pamoate 50 mg 03/08/24 22:59 03/12/24 22:01 Hydroxyzine Pamoate 25 Mg Capsule PO 50 mg Q4H PRN Administration Itching Hyoscyamine 0.125 mg 03/05/24 09:54 Hyoscyamine Sulfate 0.125 Mg Tablet SUBLINGUAL QID PRN dyspepsia Hyoscyamine 0.125 mg 03/14/24 15:58 Hyoscyamine Sulfate 0.125 Mg Tablet PO 03/15/24 23:59 Q4H PRN Abdominal Cramping Magnesium Sulfate/Dextrose 1 gm in 100 mls @ 100 mls/hr 03/07/24 16:54 Magnesium Sulf 1 Gm/D5w 100 Ml IVPB ONCE PRN Magnesium 1gm IV x one for serum magnesium <1.8. Linezolid 600 mg 03/11/24 21:00 03/15/24 08:50 Linezolid 600 Mg Tablet PO 03/19/24 09:01 600 mg Q12HR YARA Administration Loperamide HCl 2 mg 03/05/24 09:54 03/09/24 22:24 Loperamide Hcl 2 Mg Capsule PO 2 mg Q6H PRN Administration diarrhea Multivitamins/Calcium 1 tablet 03/05/24 09:00 03/15/24 08:50 Therapeutic Multivitamins/Minerals Tab (*Bkc) PO 1 tablet DAILY YARA Administration Naloxone HCl 0.1 mg 03/08/24 22:59 Naloxone Hcl 0.4 Mg/Ml Vial IV PUSH Q2M PRN Opiate Reversal Ondansetron HCl 4 mg 03/08/24 22:59 Ondansetron Inj 4 Mg/2 Ml Vial IV PUSH Q4H PRN Nausea And Vomiting Oxycodone/Acetaminophen 1 tablet 03/08/24 22:59 03/11/24 08:33 Oxycodone/Acetaminophen (*Crx) 5-325 Mg Tablet PO 1 tablet Q4H PRN Administration Pain Rated 4-6 Oxycodone/Acetaminophen 1 tab 03/08/24 22:59 03/15/24 13:39 Oxycodone/Acetaminophen (*Crx) 10-325 Mg Tablet PO 1 tab Q6H PRN Administration Pain Rated 7-10 Pantoprazole Sodium 40 mg 03/08/24 21:00 03/15/24 08:52 Pantoprazole Sodium Iv 40 Mg Vial IV PUSH 40 mg Q12HR YARA Administration Polyethylene Glycol 17 gm 03/09/24 09:00 03/15/24 08:38 Polyethylene Glycol 3350 17 Gm Powd.Pack PO Not Given QAM YARA Potassium Chloride 20 meq 03/11/24 09:00 03/15/24 08:50 Potassium Chloride 20 Meq Packet (For Liquid) PO 20 meq DAILY YARA Administration Sacubitril/Valsartan 1 tab 03/05/24 09:00 03/15/24 08:50 Sacubitril/Valsartan 24-26 Mg Tablet PO 1 tab Q12HR YARA Administration Senna/Docusate Sodium 2 tab 03/09/24 09:00 03/15/24 08:47 Senna/Docusate Sodium Tablet PO Not Given Q12HR YARA Simethicone 80 mg 03/15/24 11:15 03/15/24 12:26 Simethicone 80 Mg Tab.Chew PO 80 mg QID PRN Administration gas Radiology Results: ITS Impressions Head CT 03/04/24 19:10 IMPRESSION: No acute intracranial process. Chest X-Ray 03/04/24 19:12 IMPRESSION: No acute cardiopulmonary process. Hip/Pelvis X-Ray 03/04/24 19:15 IMPRESSION: Comminuted intertrochanteric fracture of the left femur. Chest/Abdomen/Pelvis CT 03/07/24 13:10 IMPRESSION: 1. Comminuted intertrochanteric fracture of proximal left femur. 2. 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 3. Distended rectosigmoid, likely adynamic ileus. 4. 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 Scrotum Ultrasound 03/09/24 14:32 IMPRESSION: No evidence of torsion or epididymo-orchitis. Bilateral hydroceles. Left epididymal cyst. Inflammatory changes around the testicles which are most likely suggestive of cellulitis. Follow-up advised. Otherwise, normal testicular ultrasound. Abdomen/Pelvis CT 03/11/24 10:17 IMPRESSION: 1. Persistent liquid stool throughout the colon consistent with nonspecific diarrhea. No bowel obstruction. 2. Cholelithiasis. 3. Nonobstructing right nephrolithiasis. 4. Chronic interstitial lung disease with associated mild bronchiectasis in the visualized lower lungs. 5. Unchanged 3.5 cm fusiform infrarenal abdominal aortic aneurysm. 6. Interval reduction and internal fixation of the recent comminuted intratrochanteric fracture of the proximal left femur. Arterial/Peripheral Duplex 03/12/24 11:12 IMPRESSION: 1. Normal flow in main portal vein. 2. Decreased pulsatility of the hepatic veins, which may be seen with liver disease, hepatic vein thrombosis, or hepatic venous outflow obstruction. Labs Labs: Laboratory Results - last 24 hr 03/15/24 06:30 WBC 4.0 L RBC 2.76 L Hgb 7.9 L Hct 24.5 L MCV 88.8 MCH 28.6 MCHC 32.2 RDW 14.0 Plt Count 142 L MPV 10.9 H Sodium 138 Potassium 2.8 L* Chloride 109 H Carbon Dioxide 25 Anion Gap 4 BUN 16 Creatinine 0.69 L Estim Creat Clear Calc 79 Estimated GFR > 60 Glucose 103 Calcium 7.8 L Iron 42 L TIBC 191 L % Saturation 22 Ferritin 153.00 Total Bilirubin 1.1 AST 68 H ALT 37 Alkaline Phosphatase 98 Total Protein 5.0 L Albumin 2.3 L
[2024-03-15 16:23] LABS: Toxigenic C. Diff NEGATIVE (NEGATIVE)
--- NOTE | 2024-03-15 16:56 | P.PNIM_ITS ---
Progress Note: A&P Assessment and Plan (1) Ground-level fall: Code(s): W18.30XA - Fall on same level, unspecified, initial encounter Status: Acute (2) Closed intertrochanteric fracture of femur: Qualifiers: Encounter type: initial encounter Fracture alignment: displaced Laterality: left Qualified Code(s): S72.142A - Displaced intertrochanteric fracture of left femur, initial encounter for closed fracture Code(s): S72.143A - Displaced intertrochanteric fracture of unspecified femur, initial encounter for closed fracture Status: Acute (3) Alcoholism: Code(s): F10.20 - Alcohol dependence, uncomplicated Status: Acute Assessment and Plan: Delete (4) Cardiomyopathy: Code(s): I42.9 - Cardiomyopathy, unspecified Status: Acute (5) Atrial fibrillation with RVR: Code(s): I48.91 - Unspecified atrial fibrillation Status: Acute (6) Pulmonary embolism: Qualifiers: Acute cor pulmonale presence: without acute cor pulmonale Chronicity: acute Pulmonary embolism type: unspecified Qualified Code(s): I26.99 - Other pulmonary embolism without acute cor pulmonale Code(s): I26.99 - Other pulmonary embolism without acute cor pulmonale Status: Acute (7) Parkinsons disease: Code(s): G20 - Parkinson's disease Status: Acute (8) Thrombocytopenia: Code(s): D69.6 - Thrombocytopenia, unspecified Status: Acute (9) Anemia: Code(s): D64.9 - Anemia, unspecified Status: Acute Plan This is an 83-year-old male presented to the ED/12/17 after a ground level fall mechanical while using his walker. Patient was unable to get back up. No loss of consciousness. Hip pain. Workup revealed comminuted intertrochanteric fracture of left femur. Patient was admitted for further treatment. CT head was negative. Chest x-ray with no acute cardiopulmonary process. Orthopedic was consulted. Planned left hip cephalomedullary nailing. Anemia been down to 7.4 received 2 unit of transfusion. Hemoglobin of 10 today. No signs of bleeding. Could be hemodilution now as he has received 10 L +since admission. CTA chest abdomen pelvis with no bleeding. Findings of adynamic ileus Fall ORIF femur intertrochanteric fracture with cephalomedullary nail, left on 03/08. Scrotal redness US shows possible cellulitis Contineu Zyvox and Augmentin Adynamic ileus, resolved bowel sounds present today Advance diet as tolerate Surgery consulted Continue to monitor Hypokalemia k 2.8 replaced and monitor Alcoholism History of alcoholism has not drank since 5 years. 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 Congestive heart failure with reduced ejection fracture line coronary artery disease EF 30-35% in the past last echo 2021 with EF% Abdominal aortic aneurysm AFib chronic rate controlled anticoagulated which is on hold for the surgery Parkinson's disease History of DVT/PE on chronic anticoagulation Acute on Chronic anemia. Received 2 U PRBC on 03/07 CT chest abdomen pelvis reviewed Ferritin 46.5. B12 731 more than 20. Check stool for occult blood. Thrombocytopenia improved fluctuating upon review previous labs. Likely due to chronic alcoholism. As per GI :Ordered US retroperitoneal duplex ltd demonstrated decreased blood flow in the hepatic veins, although no definitive obstruction or thrombosis was identified. These findings are suggestive of chronic liver disease or cirrhosis. While a FibroScan would be the ideal diagnostic tool, it is currently unavailable but is expected to arrive in the coming weeks. In the meantime, a non-invasive blood-based liver fibrosis panel will be ordered. Regarding the patient's iron deficiency anemia, a colonoscopy and upper endoscopy are indicated for evaluation. However, due to his recent hip surgery, these procedures are currently contraindicated and will be scheduled as outpatient procedures Liver fibrosis panel is pending GI consulted and signed off DVT prophylaxis on SCDs. Used to be on apixaban prior to admission Code status full code Subjective Date/time seen: 03/15/24 16:56 Interval history: Patient appears lethargic at bedside and complained of abd pain but refused repeat Abd imaging noting previous ones were unrevealing Review of Systems Review of Systems: Fall, left hip pain with movement, unable to bear weight. All systems reviewed & are unremarkable except as noted in HPI and below Exam Narrative: GENERAL APPEARANCE: Appears to be in no acute distress. HEAD: normocephalic atraumatic EYES: PERRL, EOMI. Vision grossly intact. CARDIAC: Normal S1/S2. Rhythm is regular. No murmurs, rubs, or gallops. No cyanosis or pallor. LUNGS: Clear to auscultation without rales, rhonchi, wheezing or diminished breath sounds. Respirations even and unlabored. ABDOMEN: BS positive x 4 quadrants. Soft, mildly distended, nontender. No guarding or rebound. MSK: Distal nv sensation intact blle. Pain to palpation of left hip. PERIPHERAL VASCULAR: Peripheral pulses palpable. Normal perfusion, cap refill <2 seconds. No edema. NEURO: Follows commands. No focal deficits. SKIN: [place] without lesions or eruptions. PSYCH: Stable, no paranoia or delusional thinking. Const: General: comfortable, no acute distress, well developed, alert, awake, average body habitus and thin Nutritional Appearance: average body habitus and thin Orientation/consciousness: patient oriented x3 Other: Well-appearing HENMT: Head: normal to inspection, normocephalic and atraumatic Ears: hearing grossly normal bilaterally Face/Nose/Sinus: normal facial exam Face and sinus: normal facial exam Eyes: General: appearance normal, both eyes and all related structures Pupils: Equal, round and reactive pupils present EOM: EOMs intact bilaterally Neck: Neck: full ROM, no lymphadenopathy and no JVD Thyroid: thyroid normal Lymphatic: no lymphadenopathy noted Resp: Effort & Inspection: normal respiratory effort and able to speak in complete sentences Auscultation: clear to auscultation bilaterally Cardio: Jugular venous distension: no JVD Rate: regular rate Rhythm: regular rhythm Heart sounds: S1 normal heart sound present and S2 normal heart sound present : General: Yes deferred Skin: Rashes: no rashes Wounds: no wounds Neuro: General: patient oriented x3, CN's II-XI intact bilaterally and Unable to assess gait Cranial nerves: Yes CN's II-XII intact bilaterally and Yes Equal, round and reactive pupils present Cognition (Neuro): normal cognition Speech: normal speech Gait exam (Neuro): Unable to assess gait Motor exam (neuro): 5/5 motor strength present throughout Extrem: Other: Left leg is externally rotated and shortened Objective Data Vital Signs Vital Signs: Vital Signs - 24 hr 03/14/24 20:00 03/14/24 20:00 03/14/24 20:45 Temperature 98.4 F Pulse Rate 77 81 86 Respiratory Rate 18 18 Blood Pressure 96/47 L Pulse Oximetry 100 100 Oxygen Delivery Room Air 03/15/24 00:00 03/15/24 04:00 03/15/24 04:45 Temperature 97.6 F Pulse Rate 84 86 87 Respiratory Rate 20 Blood Pressure 91/56 L Pulse Oximetry 98 Oxygen Delivery 03/15/24 07:20 03/15/24 08:00 03/15/24 08:33 Temperature 99.6 F Pulse Rate 84 88 Respiratory Rate 12 Blood Pressure 110/54 L Pulse Oximetry 100 Oxygen Delivery Room Air 03/15/24 12:45 03/15/24 14:30 03/15/24 15:00 Temperature 97.9 F 98 F Pulse Rate 69 82 Respiratory Rate 12 12 Blood Pressure 86/52 L 85/42 L 90/72 L Pulse Oximetry 100 100 Oxygen Delivery Intake/Output Intake/Output: Intake & Output 03/12/24 03/13/24 03/14/24 03/15/24 23:59 23:59 23:59 23:59 Intake Total 1580 543 158 8124 Output Total 1000 1400 1200 1050 Balance 580 640 280 370 Meds/Results Medications: Active Medications Generic Name Dose Route Start Last Admin Trade Name Freq PRN Reason Stop Dose Admin Acetaminophen 500 mg 03/08/24 22:59 03/12/24 14:53 Acetaminophen 500 Mg Tablet PO 500 mg Q6H PRN Administration Pain Rated 1-3 Amoxicillin/Clavulanate Potassium 1 tablet 03/12/24 21:00 03/15/24 08:34 Amoxicillin/Clavulanate K 875-125 Mg Tab PO 03/19/24 09:01 1 tablet Q12HR YARA Administration Atorvastatin Calcium 80 mg 03/05/24 21:00 03/12/24 22:01 Atorvastatin 40 Mg Tablet PO 80 mg HS YARA Administration Carvedilol 3.125 mg 03/05/24 09:00 03/15/24 08:33 Carvedilol 3.125 Mg Tablet PO 3.125 mg Q12HR YARA Administration Folic Acid 1 mg 03/05/24 09:00 03/15/24 08:34 Folic Acid 1 Mg Tablet PO 1 mg DAILY YARA Administration Furosemide 10 mg 03/05/24 09:00 03/15/24 08:34 Furosemide 10 Mg Tablet PO 10 mg QAM YARA Administration Heparin Sodium (Porcine) 5,000 units 03/05/24 09:00 03/15/24 08:34 Heparin Sodium 5,000 Units/Ml Vial SUB-Q 5,000 units Q12HR YARA Administration Hydromorphone HCl 1 mg 03/08/24 22:59 03/15/24 08:39 Hydromorphone Hcl Inj (*Crx) 1 Mg/Ml Syr IV PUSH 1 mg Q2H PRN Administration Breakthrough Pain Rated 7-10 or NPO Hydromorphone HCl 0.5 mg 03/08/24 22:59 03/13/24 15:30 Hydromorphone Hcl Inj (*Crx) 1 Mg/Ml Syr IV PUSH 0.5 mg Q2H PRN Administration Breakthrough Pain Rated 4-6 or NPO Hydroxyzine Pamoate 50 mg 03/08/24 22:59 03/12/24 22:01 Hydroxyzine Pamoate 25 Mg Capsule PO 50 mg Q4H PRN Administration Itching Hyoscyamine 0.125 mg 03/05/24 09:54 Hyoscyamine Sulfate 0.125 Mg Tablet SUBLINGUAL QID PRN dyspepsia Hyoscyamine 0.125 mg 03/14/24 15:58 Hyoscyamine Sulfate 0.125 Mg Tablet PO 03/15/24 23:59 Q4H PRN Abdominal Cramping Magnesium Sulfate/Dextrose 1 gm in 100 mls @ 100 mls/hr 03/07/24 16:54 Magnesium Sulf 1 Gm/D5w 100 Ml IVPB ONCE PRN Magnesium 1gm IV x one for serum magnesium <1.8. Linezolid 600 mg 03/11/24 21:00 03/15/24 08:50 Linezolid 600 Mg Tablet PO 03/19/24 09:01 600 mg Q12HR YARA Administration Loperamide HCl 2 mg 03/05/24 09:54 03/09/24 22:24 Loperamide Hcl 2 Mg Capsule PO 2 mg Q6H PRN Administration diarrhea Multivitamins/Calcium 1 tablet 03/05/24 09:00 03/15/24 08:50 Therapeutic Multivitamins/Minerals Tab (*Bkc) PO 1 tablet DAILY YARA Administration Naloxone HCl 0.1 mg 03/08/24 22:59 Naloxone Hcl 0.4 Mg/Ml Vial IV PUSH Q2M PRN Opiate Reversal Ondansetron HCl 4 mg 03/08/24 22:59 Ondansetron Inj 4 Mg/2 Ml Vial IV PUSH Q4H PRN Nausea And Vomiting Oxycodone/Acetaminophen 1 tablet 03/08/24 22:59 03/11/24 08:33 Oxycodone/Acetaminophen (*Crx) 5-325 Mg Tablet PO 1 tablet Q4H PRN Administration Pain Rated 4-6 Oxycodone/Acetaminophen 1 tab 03/08/24 22:59 03/15/24 13:39 Oxycodone/Acetaminophen (*Crx) 10-325 Mg Tablet PO 1 tab Q6H PRN Administration Pain Rated 7-10 Pantoprazole Sodium 40 mg 03/08/24 21:00 03/15/24 08:52 Pantoprazole Sodium Iv 40 Mg Vial IV PUSH 40 mg Q12HR YARA Administration Polyethylene Glycol 17 gm 03/09/24 09:00 03/15/24 08:38 Polyethylene Glycol 3350 17 Gm Powd.Pack PO Not Given QAM YARA Potassium Chloride 20 meq 03/11/24 09:00 03/15/24 08:50 Potassium Chloride 20 Meq Packet (For Liquid) PO 20 meq DAILY YARA Administration Sacubitril/Valsartan 1 tab 03/05/24 09:00 03/15/24 08:50 Sacubitril/Valsartan 24-26 Mg Tablet PO 1 tab Q12HR YARA Administration Senna/Docusate Sodium 2 tab 03/09/24 09:00 03/15/24 08:47 Senna/Docusate Sodium Tablet PO Not Given Q12HR YARA Simethicone 80 mg 03/15/24 11:15 03/15/24 12:26 Simethicone 80 Mg Tab.Chew PO 80 mg QID PRN Administration gas Radiology Results: ITS Impressions Head CT 03/04/24 19:10 IMPRESSION: No acute intracranial process. Chest X-Ray 03/04/24 19:12 IMPRESSION: No acute cardiopulmonary process. Hip/Pelvis X-Ray 03/04/24 19:15 IMPRESSION: Comminuted intertrochanteric fracture of the left femur. Chest/Abdomen/Pelvis CT 03/07/24 13:10 IMPRESSION: 1. Comminuted intertrochanteric fracture of proximal left femur. 2. 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 3. Distended rectosigmoid, likely adynamic ileus. 4. 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 Scrotum Ultrasound 03/09/24 14:32 IMPRESSION: No evidence of torsion or epididymo-orchitis. Bilateral hydroceles. Left epididymal cyst. Inflammatory changes around the testicles which are most likely suggestive of cellulitis. Follow-up advised. Otherwise, normal testicular ultra sound. Abdomen/Pelvis CT 03/11/24 10:17 IMPRESSION: 1. Persistent liquid stool throughout the colon consistent with nonspecific diarrhea. No bowel obstruction. 2. Cholelithiasis. 3. Nonobstructing right nephrolithiasis. 4. Chronic interstitial lung disease with associated mild bronchiectasis in the visualized lower lungs. 5. Unchanged 3.5 cm fusiform infrarenal abdominal aortic aneurysm. 6. Interval reduction and internal fixation of the recent comminuted intratrochanteric fracture of the proximal left femur. Arterial/Peripheral Duplex 03/12/24 11:12 IMPRESSION: 1. Normal flow in main portal vein. 2. Decreased pulsatility of the hepatic veins, which may be seen with liver disease, hepatic vein thrombosis, or hepatic venous outflow obstruction. Labs Labs: Laboratory Results - last 24 hr 03/15/24 03/15/24 06:30 15:15 WBC 4.0 L RBC 2.76 L Hgb 7.9 L Hct 24.5 L MCV 88.8 MCH 28.6 MCHC 32.2 RDW 14.0 Plt Count 142 L MPV 10.9 H Sodium 138 Potassium 2.8 L* Chloride 109 H Carbon Dioxide 25 Anion Gap 4 BUN 16 Creatinine 0.69 L Estim Creat Clear Calc 79 Estimated GFR > 60 Glucose 103 Calcium 7.8 L Iron 42 L TIBC 191 L % Saturation 22 Ferritin 153.00 Total Bilirubin 1.1 AST 68 H ALT 37 Alkaline Phosphatase 98 Total Protein 5.0 L Albumin 2.3 L C. difficile (PCR) Negative Quality VTE Prophylaxis VTE prophylaxis: mechanical ordered
[2024-03-16] VITALS: PULSE 87
[2024-03-16 04:00] VITALS: PULSE 74
[2024-03-16 05:46] VITALS: BP 93/51; PULSE 74; RESP 20; TEMP 36.9; O2SAT 97
--- NOTE | 2024-03-16 06:26 | P.PNUR_ITS ---
Progress Note: A&P Assessment and Plan (1) Genital edema, male: Code(s): N50.89 - Other specified disorders of the male genital organs Status: Acute Assessment and Plan: * Genital edema is much more indicative of overall health (cardiopulmonary health, vascular integrity, nutritional status, mobility, etc) than it is of any particular genitourinary issue. Patient has many risk factors for generalized edema, including the scrotum. He does not appear to have genital cellulitis. * The only thing I can recommend, as I did last week, is scrotal elevation/compression with jock-strap or tight underwear (neither of which were in place when I examined pt. this morning) and addressing these other significant health issues. Subjective Subjective Date/Time Seen: 03/16/24 06:26 Interval history: Gential edema moderately improved over last week Review of Systems Review of Systems: ROS unobtainable: Yes unobtainable due to mental status Exam Const: General: no acute distress Resp: Effort & Inspection: normal respiratory effort GI: Inspection: non-distended GI Palp: No abdominal tenderness and No Guarding due to palpation present (GI) Auscultation: normal bowel sounds : Male General Exam: Yes edema (moderate generalized edema without erythema) Objective Data Vital Signs Vital Signs: Vital Signs - 24 hr 03/15/24 07:20 03/15/24 08:00 03/15/24 08:33 Temperature 99.6 F Pulse Rate 84 88 Respiratory Rate 12 Blood Pressure 110/54 L Pulse Oximetry 100 Oxygen Delivery Room Air 03/15/24 12:00 03/15/24 12:45 03/15/24 14:30 Temperature 97.9 F 98 F Pulse Rate 76 69 82 Respiratory Rate 12 12 Blood Pressure 86/52 L 85/42 L Pulse Oximetry 100 100 Oxygen Delivery 03/15/24 15:00 03/15/24 16:00 03/15/24 20:00 Temperature Pulse Rate 86 Respiratory Rate Blood Pressure 90/72 L Pulse Oximetry Oxygen Delivery Room Air 03/15/24 20:00 03/15/24 21:16 03/15/24 21:42 Temperature 98.0 F Pulse Rate 80 83 83 Respiratory Rate 16 Blood Pressure 97/41 L Pulse Oximetry 100 Oxygen Delivery 03/16/24 00:00 03/16/24 04:00 03/16/24 05:46 Temperature 98.5 F Pulse Rate 87 74 74 Respiratory Rate 20 Blood Pressure 93/51 L Pulse Oximetry 97 Oxygen Delivery Intake/Output Intake/Output: Intake & Output 03/13/24 03/14/24 03/15/24 03/16/24 23:59 23:59 23:59 23:59 Intake Total 540 876 4170 100 Output Total 1400 1200 2000 300 Balance -640 -280 777 -200 Meds/Results Medications: Active Medications Generic Name Dose Route Start Last Admin Trade Name Freq PRN Reason Stop Dose Admin Acetaminophen 500 mg 03/08/24 22:59 03/12/24 14:53 Acetaminophen 500 Mg Tablet PO 500 mg Q6H PRN Administration Pain Rated 1-3 Amoxicillin/Clavulanate Potassium 1 tablet 03/12/24 21:00 03/15/24 21:17 Amoxicillin/Clavulanate K 875-125 Mg Tab PO 03/19/24 09:01 1 tablet Q12HR YARA Administration Atorvastatin Calcium 80 mg 03/05/24 21:00 03/12/24 22:01 Atorvastatin 40 Mg Tablet PO 80 mg HS YARA Administration Carvedilol 3.125 mg 03/05/24 09:00 03/15/24 21:16 Carvedilol 3.125 Mg Tablet PO 3.125 mg Q12HR YARA Administration Folic Acid 1 mg 03/05/24 09:00 03/15/24 08:34 Folic Acid 1 Mg Tablet PO 1 mg DAILY YARA Administration Furosemide 10 mg 03/05/24 09:00 03/15/24 08:34 Furosemide 10 Mg Tablet PO 10 mg QAM YARA Administration Heparin Sodium (Porcine) 5,000 units 03/05/24 09:00 03/15/24 21:17 Heparin Sodium 5,000 Units/Ml Vial SUB-Q 5,000 units Q12HR YARA Administration Hydromorphone HCl 1 mg 03/08/24 22:59 03/15/24 08:39 Hydromorphone Hcl Inj (*Crx) 1 Mg/Ml Syr IV PUSH 1 mg Q2H PRN Administration Breakthrough Pain Rated 7-10 or NPO Hydromorphone HCl 0.5 mg 03/08/24 22:59 03/13/24 15:30 Hydromorphone Hcl Inj (*Crx) 1 Mg/Ml Syr IV PUSH 0.5 mg Q2H PRN Administration Breakthrough Pain Rated 4-6 or NPO Hydroxyzine Pamoate 50 mg 03/08/24 22:59 03/12/24 22:01 Hydroxyzine Pamoate 25 Mg Capsule PO 50 mg Q4H PRN Administration Itching Hyoscyamine 0.125 mg 03/05/24 09:54 Hyoscyamine Sulfate 0.125 Mg Tablet SUBLINGUAL QID PRN dyspepsia Magnesium Sulfate/Dextrose 1 gm in 100 mls @ 100 mls/hr 03/07/24 16:54 Magnesium Sulf 1 Gm/D5w 100 Ml IVPB ONCE PRN Magnesium 1gm IV x one for serum magnesium <1.8. Linezolid 600 mg 03/11/24 21:00 03/15/24 21:16 Linezolid 600 Mg Tablet PO 03/19/24 09:01 600 mg Q12HR YARA Administration Loperamide HCl 2 mg 03/05/24 09:54 03/09/24 22:24 Loperamide Hcl 2 Mg Capsule PO 2 mg Q6H PRN Administration diarrhea Multivitamins/Calcium 1 tablet 03/05/24 09:00 03/15/24 08:50 Therapeutic Multivitamins/Minerals Tab (*Bkc) PO 1 tablet DAILY YARA Administration Naloxone HCl 0.1 mg 03/08/24 22:59 Naloxone Hcl 0.4 Mg/Ml Vial IV PUSH Q2M PRN Opiate Reversal Ondansetron HCl 4 mg 03/08/24 22:59 Ondansetron Inj 4 Mg/2 Ml Vial IV PUSH Q4H PRN Nausea And Vomiting Oxycodone/Acetaminophen 1 tablet 03/08/24 22:59 03/11/24 08:33 Oxycodone/Acetaminophen (*Crx) 5-325 Mg Tablet PO 1 tablet Q4H PRN Administration Pain Rated 4-6 Oxycodone/Acetaminophen 1 tab 03/08/24 22:59 03/15/24 21:16 Oxycodone/Acetaminophen (*Crx) 10-325 Mg Tablet PO 1 tab Q6H PRN Administration Pain Rated 7-10 Pantoprazole Sodium 40 mg 03/08/24 21:00 03/15/24 21:17 Pantoprazole Sodium Iv 40 Mg Vial IV PUSH 40 mg Q12HR YARA Administration Polyethylene Glycol 17 gm 03/09/24 09:00 03/15/24 08:38 Polyethylene Glycol 3350 17 Gm Powd.Pack PO Not Given QAM YARA Potassium Chloride 20 meq 03/11/24 09:00 03/15/24 08:50 Potassium Chloride 20 Meq Packet (For Liquid) PO 20 meq DAILY YARA Administration Sacubitril/Valsartan 1 tab 03/05/24 09:00 03/15/24 21:16 Sacubitril/Valsartan 24-26 Mg Tablet PO Not Given Q12HR YARA Senna/Docusate Sodium 2 tab 03/09/24 09:00 03/15/24 21:13 Senna/Docusate Sodium Tablet PO Not Given Q12HR YARA Simethicone 80 mg 03/15/24 11:15 03/15/24 21:17 Simethicone 80 Mg Tab.Chew PO 80 mg QID PRN Administration gas Radiology Results: ITS Impressions Head CT 03/04/24 19:10 IMPRESSION: No acute intracranial process. Chest X-Ray 03/04/24 19:12 IMPRESSION: No acute cardiopulmonary process. Hip/Pelvis X-Ray 03/04/24 19:15 IMPRESSION: Comminuted intertrochanteric fracture of the left femur. Chest/Abdomen/Pelvis CT 03/07/24 13:10 IMPRESSION: 1. Comminuted intertrochanteric fracture of proximal left femur. 2. 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 3. Distended rectosigmoid, likely adynamic ileus. 4. 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 Scrotum Ultrasound 03/09/24 14:32 IMPRESSION: No evidence of torsion or epididymo-orchitis. Bilateral hydroceles. Left epididymal cyst. Inflammatory changes around the testicles which are most likely suggestive of cellulitis. Follow-up advised. Otherwise, normal testicular ultrasound. Abdomen/Pelvis CT 03/11/24 10:17 IMPRESSION: 1. Persistent liquid stool throughout the colon consistent with nonspecific diarrhea. No bowel obstruction. 2. Cholelithiasis. 3. Nonobstructing right nephrolithiasis. 4. Chronic interstitial lung disease with associated mild bronchiectasis in the visualized lower lungs. 5. Unchanged 3.5 cm fusiform infrarenal abdominal aortic aneurysm. 6. Interval reduction and internal fixation of the recent comminuted intratrochanteric fracture of the proximal left femur. Arterial/Peripheral Duplex 03/12/24 11:12 IMPRESSION: 1. Normal flow in main portal vein. 2. Decreased pulsatility of the hepatic veins, which may be seen with liver disease, hepatic vein thrombosis, or hepatic venous outflow obstruction. Labs Labs: Laboratory Results - last 24 hr 03/15/24 03/15/24 06:30 15:15 WBC 4.0 L RBC 2.76 L Hgb 7.9 L Hct 24.5 L MCV 88.8 MCH 28.6 MCHC 32.2 RDW 14.0 Plt Count 142 L MPV 10.9 H Sodium 138 Potassium 2.8 L* Chloride 109 H Carbon Dioxide 25 Anion Gap 4 BUN 16 Creatinine 0.69 L Estim Creat Clear Calc 79 Estimated GFR > 60 Glucose 103 Calcium 7.8 L Iron 42 L TIBC 191 L % Saturation 22 Ferritin 153.00 Total Bilirubin 1.1 AST 68 H ALT 37 Alkaline Phosphatase 98 Total Protein 5.0 L Albumin 2.3 L C. difficile (PCR) Negative
[2024-03-16] MEDS: FOLIC ACID 1 MG TABLET PO (09:08)
[2024-03-16] MEDS: THERAPEUTIC MULTIVITAMINS/MINERALS TAB (*BKC) 1 TABLET PO (09:08)
[2024-03-16] MEDS: SIMETHICONE 80 MG TAB.CHEW PO (09:08)
[2024-03-16] MEDS: SACUBITRIL/VALSARTAN 24-26 MG TABLET 1 TAB PO (09:08)
[2024-03-16] MEDS: POTASSIUM CHLORIDE 20 MEQ PACKET (FOR LIQUID) PO (09:08)
[2024-03-16] MEDS: oxyCODONE/ACETAMINOPHEN (*CRX) 10-325 MG TABLET 1 TAB PO ×2 (09:08→14:50)
[2024-03-16] MEDS: FUROSEMIDE 10 MG TABLET PO (09:09)
[2024-03-16 09:10] VITALS: PULSE 79
[2024-03-16] MEDS: carvediloL 3.125 MG TABLET PO (09:10)
[2024-03-16] MEDS: PANTOPRAZOLE SODIUM IV 40 MG VIAL IV PUSH (09:11)
[2024-03-16] MEDS: LINEZOLID 600 MG TABLET PO (09:11)
[2024-03-16] MEDS: AMOXICILLIN/CLAVULANATE K 875-125 MG TAB 1 TABLET PO (09:11)
[2024-03-16] MEDS: HEPARIN SODIUM 5,000 UNITS/ML VIAL 5000 UNITS SUB-Q (09:11)
[2024-03-16 09:17] LABS: Basophils Percent Auto 0.5 % (0.2-1.2); Eosinophils Absolute Auto 0.1 K/mm3 (0-0.3); Eosinophils Percent Auto 2.1 % (0-4.4); Hematocrit 26.7 % (42.0-52.0); Hemoglobin 8.4 g/dL (14.0-18.0); Immature Granulocyte Absolute 0.03 K/mm3 (0.00-0.031); Immature Granulocyte Percent A 0.7 % (0-0.5); Lymphocytes Absolute Auto 0.75 K/mm3 (0.9-3.2); Lymphocytes Percent Auto 17.2 % (18.3-44.2); Mean Corpuscular HGB Conc 31.5 g/dl (32-36); Mean Corpuscular Hemoglobin 28.2 pg (26-34); Mean Corpuscular Volume 89.6 fl (80-100); Mean Platelet Volume 10.9 fl (7.4-10.4); Monocytes Absolute Auto 0.4 K/mm3 (0.1-0.6); Neutrophils Absolute Auto 3.1 K/mm3 (1.3-6.7); Neutrophils Percent Auto 70.5 % (45.5-73.1); Platelet Count Result 152 k/mm3 (150-375); Red Blood Count 2.98 M/mm3 (4.6-6.20); Red Cell Distribution Width 14.5 % (11.5-14.5); White Blood Count 4.4 K/mm3 (4.5-10.0)
[2024-03-16 09:26] LABS: Anion Gap 3 mmol/L (4-12); Blood Urea Nitrogen 16 mg/dL (9-20); Calcium 8.3 mg/dL (8.4-10.2); Carbon Dioxide 25 mmol/L (22-30); Chloride 110 mmol/L (98-107); Estimated CRCL calculation 91 ml/min; Estimated Glomerular Filt Rate > 60; Glucose 106 mg/dL (65-110); Potassium 3.3 mmol/L (3.4-5.0); Sodium 138 mmol/L (137-145)
[2024-03-16] MEDS: ALBUMIN HUMAN 25% 25 GM/100 ML 100 ML IVPB (10:11)
--- NOTE | 2024-03-16 11:50 | P.DS_ITS ---
DS: Admitting Diagnosis Discharge Date 03/16/24 Admitting Diagnosis Fall DS: Discharge Diagnosis Discharge Diagnosis (1) Closed intertrochanteric fracture of femur: Qualifiers: Encounter type: initial encounter Fracture alignment: displaced Laterality: left Qualified Code(s): S72.142A - Displaced intertrochanteric fracture of left femur, initial encounter for closed fracture Code(s): S72.143A - Displaced intertrochanteric fracture of unspecified femur, initial encounter for closed fracture Status: Acute DS: Summary Hospital Course Hospital Course: This is an 83-year-old male with past medical history significant for pulmonary thrombosis, pacemaker, alcoholism, Parkinson's disease, fatty liver disease, arthritis, GERD, deep vein thrombosis. Patient was brought to the emergency room after he had a fall ground level mechanical fall while using his walker, patient was unable to get back up. Patient denies loss of consciousness. Preliminary workup was significant for comminuted intertrochanteric fracture of the left femur. Patient has been admitted for further evaluation management and treatment. Ortho was consulted and patient underwent ORIF. Post surgery patient has adynamic ileus, gen surgery was consulted, patient currently is tolerating diet. no surgical intervention was needed. Also has diarrhea with hypokalemia, diarrhea is resolving and hypokalemia is resolving too. Patient discharged on 5 more days of PO KCl 20mEq daily. f/u with PCP. also has scrotal swelling which was initially suspected to be cellulitis, howeve urology evaluted and noted it is less likely ccellulitis and more like scrotal edema from CHF.. Lasix was increased to 20mg from 10mg. F/u with PCP GI was consulted for anemia an dUS showed decreased flow in hepatic veins and with no definite obstruction. Gi however noted outpatient endoscopy and fibroscan to give patient time to recover from hip surgery. Iron patient was iron replete and hb remain stable at 7.9. he received 2 units of pRBC Patient will F/u with PCP 3-5 days. Follow up with GI, follow up with orthoped ic follow-up with Urology as instructed. topical management Fall ORIF femur intertrochanteric fracture with cephalomedullary nail, left on 03/08. Scrotal redness US shows possible cellulitis Contineu Zyvox and Augmentin Adynamic ileus, resolved bowel sounds present today Advance diet as tolerate Surgery consulted Continue to monitor Hypokalemia k 2.8 replaced and monitor Alcoholism History of alcoholism has not drank since 5 years. 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 Congestive heart failure with reduced ejection fracture line coronary artery disease EF 30-35% in the past last echo 2021 with EF% Abdominal aortic aneurysm AFib chronic rate controlled anticoagulated which is on hold for the surgery Parkinson's disease History of DVT/PE on chronic anticoagulation Acute on Chronic anemia. Received 2 U PRBC on 03/07 CT chest abdomen pelvis reviewed Ferritin 46.5. B12 731 more than 20. Check stool for occult blood. Thrombocytopenia improved fluctuating upon review previous labs. Likely due to chronic alcoholism. As per GI :Ordered US retroperitoneal duplex ltd demonstrated decreased blood flow in the hepatic veins, although no definitive obstruction or thrombosis was identified. These findings are suggestive of chronic liver disease or cirrhosis. While a FibroScan would be the ideal diagnostic tool, it is currently unavailable but is expected to arrive in the coming weeks. In the meantime, a non-invasive blood-based liver fibrosis panel will be ordered. Regarding the patient's iron deficiency anemia, a colonoscopy and upper endoscopy are indicated for evaluation. However, due to his recent hip surgery, these procedures are currently contraindicated and will be scheduled as outpatient procedures Liver fibrosis panel is pending GI consulted and signed off Time Spent with Patient Time attestation: Total time spent providing and/or coordinating discharge services: DS: Data Data Completed and Pending Labs on day of discharge: Labs from last 24 hours 03/16/24 03/15/24 03/15/24 09:06 15:15 06:30 WBC 4.4 L RBC 2.98 L Hgb 8.4 L Hct 26.7 L MCV 89.6 MCH 28.2 MCHC 31.5 L RDW 14.5 Plt Count 152 MPV 10.9 H Immature Gran % (Auto) 0.7 H Neut % (Auto) 70.5 Lymph % (Auto) 17.2 L [place] % (Auto) 9.0 H Eos % (Auto) 2.1 Baso % (Auto) 0.5 Lymph # (Auto) 0.75 L [place] # (Auto) 0.4 Eos # (Auto) 0.1 Baso # (Auto) 0.0 Abs Immat Gran (auto) 0.03 Absolute Neuts (auto) 3.1 Absolute Nucleated RBC 0.000 Nucleated RBC % 0.0 Sodium 138 Potassium 3.3 L Chloride 110 H Carbon Dioxide 25 Anion Gap 3 L BUN 16 Creatinine 0.59 L Estim Creat Clear Calc 91 Estimated GFR > 60 Glucose 106 Calcium 8.3 L % Saturation 22 C. difficile (PCR) Negative Discharge Plan Discharge Attending physician on discharge: Gage Espitia Consulting providers: Judah Brenner; Antonio Hays; Albin Suero Discharging Clinician: Gage Espitia Anticipated Discharge Date/Time: 03/16/24 11:30 Patient Disposition: Hospital Swing Bed Activity: as tolerated Diet: heart healthy Discharge Instructions: Ortho instructions: ORIF femur intertrochanteric fracture with cephalomedullary nail, left. 03/08/24 * D/C to SNF/rehab * Xray and follow up in office or virtually if unable to make it to the office. * Wound Care: remove jarvis at 2 weeks post op. Daily dressing changes until healed. * PT: Weight bearing as tolerated with a walker. * DVT prophylaxis: continue Heparin for 30 days total * Pain medication: Tylenol. Patient Instructions: Antibiotic Form, Apixaban (By mouth), Heart Failure (DC) Patient Language: Malawian Stand Alone Forms: General Discharge Information Follow-up/Referrals: Albin Suero MD [Physician] - () Antonio Hays MD [Physician] - (F/u with urology as instructed ) Judah Brenner MD [Physician] - (F/u with ortho as instructed ) Georgiana Tripp DO [Primary Care Provider] - (F/u with PCP in 3-5 days ) Discharge Medications: New oxycodone-acetaminophen 10-325 mg Tablet 1 tablet PO Q6H PRN (Reason: Pain Rated 7-10) 5 Days Qty: 12 0RF potassium chloride 20 mEq Packet 20 meq PO DAILY 5 Days Qty: 5 0RF amoxicillin-pot clavulanate 875-125 mg tablet 1 tablet PO Q12H 3 Days Qty: 6 0RF Continued loperamide [Imodium A-D] 2 mg capsule 2 mg PO Q6H PRN (Reason: diarrhea) sacubitril-valsartan [Entresto] 24-26 mg tablet 1 tablet PO BID atorvastatin 80 mg Tablet 80 mg PO HS Qty: 30 0RF apixaban 5 mg tablet 5 mg PO BID famotidine 10 mg tablet 10 mg PO DAILY folic acid 1 mg tablet 1 mg PO DAILY sacubitril-valsartan 24-26 mg tablet 1 tablet PO BID Thera-M 9 mg iron-400 mcg tablet 1 tablet PO DAILY carvedilol 3.125 mg tablet 3.125 mg PO ONCE Rx Instructions: must administer with a meal/food hyoscyamine sulfate 0.125 mg tablet, sublingual 0.125 mg sublingual QID PRN (Reason: dyspepsia) Qty: 120 2RF Changed furosemide 20 mg tablet 20 mg PO QAM 30 Days Qty: 0 0RF Date of admission: 03/04/24 21:22 Primary Care Provider: Georgiana Tripp Admitting Provider: Matty Soliz V. Attending physician on admission: Matty Soliz V. Condition: Stable
[2024-03-16 12:00] VITALS: PULSE 77
[2024-03-16] MEDS: FUROSEMIDE 40 MG TABLET PO (15:26)
[2024-03-19 08:34] LABS: ALT 29 U/L (9-46); Alpha-2-Macroglobulin 196 mg/dL (106-279); Apolipoprotein A1 93 mg/dL (94-176); Fibrosis Score 0.52; Fibrosis Stage F2; GGT 55 U/L (3-70); Haptoglobin 268 mg/dL (43-212); Necroinflammat Act Grade A0-A1; Reference ID 5303137; Total Bilirubin 0.5 mg/dL (0.2-1.2)
== END 2024-03-16 16:45 | disposition swing bed (61) | DRG 481 ==
LOC: ANHED 21:25 → ANH3MEDSUR 22:23
PROVIDERS: General Practice; Internal Medicine; Internal Medicine Gastroenterology; Nurse Practitioner Family; Orthopaedic Surgery; Admitting Provider Internal Medicine; Emergency Provider Student in an Organized Health Care Education/Training Program; PCP Family Medicine; Visit Provider Internal Medicine
PROC: (CPT 27245; principal; 2024-03-07 16:30)
PROC: 0QS736Z Reposition Left Upper Femur with Intramedullary Internal Fixation Device, Percutaneous Approach (ICD-10-PCS; CPT 27245; principal; 2024-03-08 19:00)
DX: S72.142A Displaced intertrochanteric fracture of left femur, initial encounter for closed fracture (principal); I42.9 Cardiomyopathy, unspecified; I50.22 Chronic systolic (congestive) heart failure; K91.89 Other postprocedural complications and disorders of digestive system; K56.7 Ileus, unspecified; G20.A1 Parkinson's disease without dyskinesia, without mention of fluctuations; E87.6 Hypokalemia; R00.1 Bradycardia, unspecified; D69.6 Thrombocytopenia, unspecified; I48.91 Unspecified atrial fibrillation; K21.9 Gastro-esophageal reflux disease without esophagitis; F17.210 Nicotine dependence, cigarettes, uncomplicated; W01.0XXA Fall on same level from slipping, tripping and stumbling without subsequent striking against object, initial encounter; I25.10 Atherosclerotic heart disease of native coronary artery without angina pectoris; Z95.0 Presence of cardiac pacemaker; F10.21 Alcohol dependence, in remission; D50.9 Iron deficiency anemia, unspecified; I71.43 Infrarenal abdominal aortic aneurysm, without rupture; N50.89 Other specified disorders of the male genital organs; K70.30 Alcoholic cirrhosis of liver without ascites; Z79.01 Long term (current) use of anticoagulants; Z95.2 Presence of prosthetic heart valve; Z86.718 Personal history of other venous thrombosis and embolism
CPT/HCPCS: 36415; 36430; 70450; 71045; 71250; 73502; 74176; 76870; 80048; 80053; 81596; 82274; 82607; 82728; 82746; 83540; 83550; 83735; 84132; 84466; 85014; 85018; 85025; 85027; 85055; 85610; 85730; 86850; 86900; 86901; 86923; 87040; 87045; 87086; 87427; 87449; 87493; 92610; 93005; 93976; 96361; 96374; 96375; 97110; 97162; 97165; 97530; 97535; 99199; 99285; A9270; C1713; J0696; J1100; J1171; J1644; J2003; J2270; J2371; J2405; J2470; J2704; J3010; J3480; J7030; J7040; J7120; P9016; P9047

== ENCOUNTER 2024-03-16 17:40 | Inpatient (IN) | payer MEDICARE, SELFPAY ==
--- NOTE | ~2024-03-16 | XR_ITS ---
EXAMINATION: XR abdomen/kub 1V DATE: 04/01/2024 11:18 INDICATION: Ileus and diarrhea. TECHNIQUE: A supine view of the abdomen on 3 radiographs was obtained. COMPARISON: 03/31/2024 FINDINGS: There is persistent gaseous distention of the colon. No dilated loops of gas-filled small bowel. Visu alized lower lungs are clear. Heart size is normal. Aortic valve repair. Dual lead pacemaker seen wit h leads projecting over the expected locations of the right atrium and right ventricle. Partially vis ualized internal fixation of a comminuted intratrochanteric fracture of the proximal right femur with 2.5 cm proximal retraction of the lesser trochanteric fragment which is not included within the fixa tion. IMPRESSION: 1. Unchanged gaseous distention of the colon consistent with adynamic ileus. Reviewed, dictated and finalized at location B. S BEVELER
--- NOTE | ~2024-03-16 | XR_ITS ---
EXAMINATION: XR abdomen/kub 1V DATE: 03/31/2024 10:11 INDICATION: Diarrhea. Adynamic ileus. TECHNIQUE: A supine view of the abdomen on 2 radiographs was obtained. COMPARISON: CT abdomen and pelvis 03/27/2024 FINDINGS: There is gaseous distention of the colon. The small bowel is normal in caliber. IMPRESSION: 1. Distended colon, consistent with adynamic ileus. Reviewed, dictated and finalized at location A. S CYLINDER FLANGER
--- NOTE | ~2024-03-16 | CT_ITS ---
EXAMINATION: CT abdomen pelvis w con DATE: 04/02/2024 17:00 INDICATION: Abdominal distention TECHNIQUE: Computed tomography (CT) of the abdomen and pelvis was performed with 100 mL Omnipaque-350 intravenous contrast. Automated exposure control and iterative reconstruction technique were employe d. The dose-length product was 541.64 mGy-cm. COMPARISON: 03/27/2024, 03/22/2024. FINDINGS: Lower thorax: Partially visualized cardiac pacing wires. Valve replacement. Chronic interstitial burger ges in the lung bases Liver: Normal. Biliary/Gallbladder: Cholelithiasis. No inflammatory change. No bile duct dilation. Pancreas: Pancreatic atrophy. Multiple pancreatic body cysts measuring up to 1.5 cm Spleen: Normal. Adrenals:No mass. Kidneys: Simple left renal cysts. Bilateral subcentimeter hypodensities, too small to characterize bu t most likely represent cysts. 6 mm nonobstructing right midpole calcification. Bilateral cortical th inning and perinephric stranding. Field adrenals 3.2 cm left adrenal adenoma. GI tract: No small bowel dilation. Diffusely dilated large bowel. The rectum measures up to 8.5 cm in maximum diameter. Diffuse wall thickening in the distal sigmoid and rectum. Normal appendix. Mesentery/Peritoneum: No ascites, mass, or free air. Retroperitoneum: No mass. Atherosclerotic calcifications of intra-abdominal arterial vessels. Fusifor m infrarenal abdominal aortic aneurysm measuring up to 3.9 cm. Pelvis: The urinary bladder is decompressed by Villeda catheter. Moderate urinary bladder wall edema. Soft Tissues: Uncomplicated appearing fat-containing right inguinal hernia. Fat and fluid containing left inguinal hernia, with mild stranding. Peripheral enhancement surrounding fat and fluid collectio n at the proximal left femur, appears to be slightly smaller than the 03/22/2024 exam. Bones: No acute osseous finding. Internally fixated left intertrochanteric fracture. IMPRESSION: Distal sigmoid colitis and proctitis, likely resulting in large bowel ileus. Obstruction not excluded . Cystitis. Slightly decreased size of the peripherally enhancing fat and fluid collection surrounding the psychology intern ally fixated left intertrochanteric fracture, presumably posttraumatic/postsurgical change. Infection /abscess not excluded. Multiple pancreatic cysts. 3.9 cm infrarenal abdominal aortic aneurysm. Recommend CT abdomen and pelv is with contrast follow-up in 2 years for both findings. Reviewed, dictated and finalized at location K. TRIC RANGE ASSEMBLER IMPRESSION: Distal sigmoid colitis and proctitis, likely resulting in large bowel ileus. Ob struction not excluded. Cystitis. Slightly decreased size of the peripherally enhancing fat and fluid collection surrounding the internally fixated left intertrochanteric fracture, presumably posttraumatic/postsurgical change. Infection/abscess not excluded. Multiple pancreatic cysts. 3.9 cm infrarenal abdominal aortic aneurysm. Recomme nd CT abdomen and pelvis with contrast follow-up in 2 years for both findings.
--- NOTE | ~2024-03-16 | CT_ITS ---
EXAMINATION: CT abdomen pelvis w con DATE: 03/22/2024 12:16 INDICATION: One month of left lower quadrant abdominal pain and diarrhea. TECHNIQUE: Computed tomography (CT) of the abdomen and pelvis was performed with 100 mL Omnipaque-350 intravenous contrast. Automated exposure control and iterative reconstruction technique were employe d. The dose-length product was 680.27 mGy-cm. COMPARISON: 03/19/2024 FINDINGS: Increase in size of still small bilateral posterior layering pleural effusions. Persistent coarse ret icular opacities in the dependent bilateral lower lobes which could represent atelectasis or chronic interstitial lung disease. Mild cardiomegaly. Atherosclerotic coronary artery calcification is and ao rtic valve repair. Dual-lead cardiac pacemaker with lead tips at the right atrial appendage and near the apex of the right ventricle. No pericardial effusion. Again seen are a few tiny high attenuation gallstones along the dependent wall of the otherwise normal-appearing gallbladder. Liver, spleen, sales creas and right adrenal gland are normal. Unchanged 3 cm left adrenal mass with low-attenuation on th e prior noncontrast study consistent with an adenoma. Bilateral renal cysts the largest on the left m easuring 3.5 cm. Unchanged 6 mm nonobstructing stone at the lower pole the right kidney. Decrease in the amount of fluid at the rectum and distal sigmoid colon consistent with nonspecific diarrhea. Ther e is some mild wall thickening in the sigmoid colon at the rectum along with some stranding in the pe rirectal fat suspicious for a distal proctocolitis. No bowel obstruction. Normal appendix. There is w all thickening of the bladder which is decompressed around a Villeda catheter. Small fat-containing lef t inguinal hernia. No abscess or free intraperitoneal gas or fluid. No pathologically enlarged abdomi nal lymphadenopathy. Unchanged 3.6 cm infrarenal abdominal aortic aneurysm. Internally fixed subtroch anteric fracture of the proximal left femur. There is enhancement at the periphery of an 8.5 x 3.4 cm fat and fluid collection extending between the subtrochanteric portion of the fracture and the anter ior and proximally distracted lesser trochanteric fracture fragment most likely representing residual post traumatic and postoperative hematoma although differential would include abscess in the appropr iate clinical setting. IMPRESSION: 1. Diarrhea with mild wall thickening and surrounding inflammatory stranding at the rectum and distal sigmoid colon consistent with a distal proctocolitis. 2. Cholelithiasis. 2. Nonobstructing right nephrolithiasis. 4. Increasing small bilateral posterior layering pleural effusions with atelectasis versus chronic abbe ng disease in the dependent lower lungs. 5. Unchanged 3.6 cm fusiform infrarenal abdominal aortic aneurysm. 6. 8.5 x 3.4 cm fat and fluid collection along side a recent internally fixed intertrochanteric/subtr ochanteric fracture of the proximal left femur most likely representing a posterior neck/postsurgical hematoma although differential would include abscess in the appropriate clinical setting. 7. Small fat-containing left inguinal hernia. Reviewed, dictated and finalized at location A. ERSON IMPRESSION: 1. Diarrhea with mild wall thickening and surrounding inflammatory stranding at the rectum and distal sigmoid colon consistent with a distal proctocolitis. 2. Cholelithiasis. 2. Nonobstructing right nephrolithiasis. 4. Increasing small bilateral posterior layering pleural effusions with atelect asis versus chronic lung disease in the dependent lower lungs. 5. Unchanged 3.6 cm fusiform infrarenal abdominal aortic aneurysm. 6. 8.5 x 3.4 cm fat and fluid collection along side a recent internally fixed i ntertrochanteric/subtrochanteric fracture of the proximal left femur most likel y representing a posterior neck/postsurgical hematoma although differential wou ld include abscess in the appropriate clinical setting. 7. Small fat-containing left inguinal hernia.
--- NOTE | ~2024-03-16 | XR_ITS ---
EXAMINATION: XR abdomen/kub 1V DATE: 03/29/2024 10:02 INDICATION: Vomiting and diarrhea. Abdominal distention. TECHNIQUE: A supine view of the abdomen on 3 radiographs was obtained. COMPARISON: CT abdomen and pelvis 03/27/2024 FINDINGS: There is gaseous distention of the colon. The small bowel is normal in caliber. There are p acer wires in right atrium and right ventricle. There are changes of aortic valve replacement. There is internal fixation of left femur. IMPRESSION: 1. Dilated colon, consistent with adynamic ileus. Reviewed, dictated and finalized at location A. ET CAR MECHANIC
--- NOTE | ~2024-03-16 | CT_ITS ---
EXAMINATION: CT abdomen pelvis wo con DATE: 03/19/2024 09:24 INDICATION: Abdominal pain and hematuria TECHNIQUE: Computed tomography (CT) of the abdomen and pelvis was performed without intravenous contr ast. Automated exposure control and iterative reconstruction technique were employed. The dose-length product was 516.30 mGy-cm. COMPARISON: 03/11/2024 and 03/07/2024 FINDINGS: Small bilateral pleural effusions. Persistent reticular opacities in the dependent aspect of the lowe r lobes and lingula consistent with chronic interstitial lung disease. Cardiomegaly. Atherosclerotic coronary artery calcifications. No pericardial effusion. Aortic valve repair. Cardiac pacemaker leads terminating at the right atrial appendage and near the apex of the right ventricle. A few tiny gallstones at the dependent aspect of the otherwise normal-appearing gallbladder. Liver, s pleen, pancreas and right adrenal gland are normal. 3 cm low-attenuation renal mass unchanged since consistent with an adenoma. Bilateral renal cysts the largest on the left measuring 3.3 cm. Unchanged 6 mm nonobstructing stone at the lower pole the right kidney. Moderate amount of stool in t he proximal colon with fluid layering in the more distal colon consistent with diarrhea. Small bowel and appendix are normal. Villeda catheter within the decompressed bladder. Small bilateral inguinal her nias containing fat on the right and facet and small amount of ascites on the left. No other free int raperitoneal gas or fluid. No pathologically enlarged abdominal or pelvic lymphadenopathy. There is c alcified atherosclerosis of the aorta and many of the other arteries. Unchanged 3.5 cm infrarenal abd ominal aortic aneurysm. Internally fixed subacute intertrochanteric fracture the proximal left femur. IMPRESSION: 1. New small bilateral pleural effusions with persistent chronic interstitial lung disease peripheral ly in the dependent lower lungs. 2. Persistent fluid throughout the mid to distal colon consistent with nonspecific diarrhea. 3. Cholelithiasis. 4. Nonobstructing right nephrolithiasis. 5. Unchanged 3.5 cm fusiform infrarenal abdominal aortic aneurysm. Reviewed, dictated and finalized at location A. RVISOR PRESS ROOM IMPRESSION: 1. New small bilateral pleural effusions with persistent chronic interstitial l vincenzo disease peripherally in the dependent lower lungs. 2. Persistent fluid throughout the mid to distal colon consistent with nonspeci fic diarrhea. 3. Cholelithiasis. 4. Nonobstructing right nephrolithiasis. 5. Unchanged 3.5 cm fusiform infrarenal abdominal aortic aneurysm.
--- NOTE | ~2024-03-16 | XR_ITS ---
EXAMINATION: XR abdomen/kub 1V DATE: 03/30/2024 11:58 INDICATION: Abdominal distention. Diarrhea. TECHNIQUE: A supine view of the abdomen on 3 radiographs was obtained. COMPARISON: CT abdomen and pelvis 03/27/2024 FINDINGS: There is gaseous distention of the colon. The small bowel is normal in caliber. There is a fracture of proximal left femur with internal fixation. There are pacer wires in right atrium and rig ht ventricle. IMPRESSION: 1. Gaseous distention of the colon, consistent with adynamic ileus. Reviewed, dictated and finalized at location A. ORIOGRAPHY PROFESSOR
--- NOTE | ~2024-03-16 | CT_ITS ---
CLINICAL INDICATION: Abdominal distention and pain COMPARISON: 03/22/2024. TECHNIQUE: Multiple contiguous axial images of the abdomen and pelvis were performed without the admi nistration of intravenous contrast The dose-length product (DLP) was 955.84 mGy-cm. Automated exposure control and iterative reconstruction technique were employed. FINDINGS/OBSERVATIONS: Visualized lower thorax: Redemonstration of small bilateral pleural effusions with adjacent compressive atelectasis. The heart is enlarged, with a prosthetic valve in aortic position. Hiatal hernia is redemonstrated. Liver: The liver demonstrates homogeneous attenuation and is not enlarged measuring 18 cm in longitudinal di mension. Gallbladder and biliary system: The gallbladder is only minimally distended, and demonstrates layering, dependent stones, but is othe rwise unremarkable. Pancreas: Limited evaluation of the pancreas secondary to the lack of intravenous contrast. Spleen: The spleen demonstrates homogeneous attenuation and is not enlarged measuring 10 cm in longitudinal d imension. Kidneys: Redemonstration of multiple nonobstructing stones. The largest is within the lower pole of the right kidney measuring 6.3 mm in greatest dimension. Rounded areas of fluid attenuation detected bilaterally, consistent with simple cysts. No hydronephrosis. Adrenal glands: 26 x 30 mm focus of decreased attenuation within the posterior limb of the left adrenal gland, demons trating contrast enhancement on prior imaging. Remaining left and the entirety of the right adrenal gland are unremarkable Gastrointestinal tract: Air opacification within the distended distal colon. Appendix: The air-filled appendix is of normal caliber (axial series, images 130 through 140). Vasculature: Densely calcified atherosclerotic disease. Lymph nodes: No pathologically enlarged or morphologically suspicious lymph nodes within the retroperitoneum or at the root of the mesentery. Pelvic structures: The bladder is decompressed with a Villeda catheter. The prostate gland demonstrates bulky calcifications. Body wall and musculoskeletal: Degenerative disease redemonstrated within the lumbar spine. Increased attenuation within the soft tissues surrounding the left intramedullary tammy and nail, likel y perioperative. IMPRESSION: Air and fluid opacification of the distal colon and rectum. No obstruction. Abnormal left adrenal gland for which follow-up contrast enhanced CT or MRI with renal mass protocol is recommended, if the patient is clinically able. Nonobstructing renal calculi. Cholelithiasis. Bilateral pleural effusions with adjacent compressive atelectasis. Reviewed, dictated and finalized at location A. TELY OPERATED VEHICLE IMPRESSION: Air and fluid opacification of the distal colon and rectum. No obstruction. Abnormal left adrenal gland for which follow-up contrast enhanced CT or MRI wit h renal mass protocol is recommended, if the patient is clinically able. Nonobstructing renal calculi. Cholelithiasis. Bilateral pleural effusions with adjacent compressive atelectasis.
[2024-03-16 17:59] VITALS: BMI 26.4
[2024-03-16 18:02] VITALS: BP 98/48; PULSE 67; RESP 18; TEMP 36.1; O2SAT 96
[2024-03-16 20:00] VITALS: PULSE 80; RESP 20; O2SAT 98
[2024-03-16 21:01] VITALS: PULSE 78
[2024-03-16] MEDS: AMOXICILLIN/CLAVULANATE K 875-125 MG TAB 1 TABLET PO (21:01)
[2024-03-16] MEDS: carvediloL 3.125 MG TABLET PO (21:01)
[2024-03-16] MEDS: LINEZOLID 600 MG TABLET PO (21:01)
[2024-03-16] MEDS: SACUBITRIL/VALSARTAN 24-26 MG TABLET 1 TAB PO (21:03)
[2024-03-16] MEDS: HEPARIN SODIUM 5,000 UNITS/ML VIAL 5000 UNITS SUB-Q (21:03)
[2024-03-16] MEDS: oxyCODONE/ACETAMINOPHEN (*CRX) 10-325 MG TABLET 1 TAB PO (21:32)
--- NOTE | 2024-03-16 21:45 | PC.NURSE ---
Patient admitted to room 209 via [facility] stretcher from [facility]. Patient alert and able to verbalize needs. here to see pt. Patient transferred into bed. Call light belongings placed within reach. Call light explained to patient and . Both stated understanding. Villeda cath patent and draining clear adam urine. Bed alarm turned on. Scrotum swollen secondary to cellulitis. Patient fractured Left hip after falling in the garage. Patient has a history of prostate cancer and is seen by Dr. Coley in [place]. Patient has pacemaker, transmission box for pacemaker plugged into wall near patient's bed.
[2024-03-16] MEDS: LOPERAMIDE HCL 2 MG CAPSULE PO (23:46)
[2024-03-17] VITALS: BP 108/50; PULSE 81; RESP 20; TEMP 36.2; O2SAT 98
[2024-03-17 05:25] LABS: Hematocrit 24.3 % (37.0-46.0); Hemoglobin 7.7 g/dL (12.4-15.3); Mean Corpuscular HGB Conc 31.7 g/dL (32-36); Mean Corpuscular Hemoglobin 28.4 pg (27.0-31.0); Mean Corpuscular Volume 89.7 fL (78.0-102.0); Mean Platelet Volume 10.3 fl (8.7-11.0); Platelet Count Result 146 K/mm3 (150-420); Red Blood Count 2.71 M/mm3 (4.70-6.10); Red Cell Distribution Width 14.6 % (11.6-14.4); White Blood Count 3.3 K/mm3 (4.8-10.8)
[2024-03-17 05:36] LABS: Band Neutrophils Percent 0 % (0-6); Lymphocytes Absolute Manual 0.82 K/mm3 (1.1-4.5); Lymphocytes Percent Manual 25 % (18-44); Neutrophils Absolute Manual 2.27 K/mm3 (1.3-6.7); Neutrophils Percent Manual 69 % (46-73); Total Cells Counted 100
[2024-03-17 05:37] LABS: Basophils Percent Manual 0 % (0-1); Eosinophils Absolute Manual 0.03 K/mm3 (0.02-0.50); Eosinophils Percent Manual 1 % (1-6); Monocytes Absolute Manual 0.16 K/mm3 (0.1-0.90); Monocytes Percent Manual 5 % (3-9); Platelet Estimate Adequate (Adequate)
[2024-03-17 05:41] LABS: Alanine Aminotransferase 39 U/L (16-63); Albumin Level 2.2 g/dL (3.4-5.0); Alkaline Phosphatase 145 U/L (46-116); Anion Gap 9 mmol/L (4-12); Aspartate Amino Transferase 50 U/L (15-37); Bilirubin,Total 0.9 mg/dL (0.00-1.00); Blood Urea Nitrogen 11 mg/dL (7-18); Calcium 7.8 mg/dL (8.5-10.1); Carbon Dioxide 27 mmol/L (21-32); Chloride 107 mmol/L (98-108); Estimated CRCL calculation 64 ml/min; Estimated Glomerular Filt Rate > 60; Glucose 106 mg/dL (70-99); Osmolality Calculated 295 mOsm/kg (285-295); Potassium 2.6 mmol/L (3.5-5.1); Sodium 143 mmol/L (136-145)
[2024-03-17 08:00] VITALS: BP 99/44; PULSE 75; RESP 20; TEMP 36.4; O2SAT 98
[2024-03-17] MEDS: LOPERAMIDE HCL 2 MG CAPSULE PO (08:17)
[2024-03-17] MEDS: HYOSCYAMINE SULFATE 0.125 MG TABLET SUBLINGUAL (08:17)
[2024-03-17] MEDS: oxyCODONE/ACETAMINOPHEN (*CRX) 10-325 MG TABLET 1 TAB PO ×3 (08:17→21:35)
[2024-03-17] MEDS: FAMOTIDINE 10 MG TABLET PO (08:18)
[2024-03-17 09:35] VITALS: PULSE 75
[2024-03-17] MEDS: LINEZOLID 600 MG TABLET PO ×2 (09:35→21:35)
[2024-03-17] MEDS: THERAPEUTIC MULTIVITAMINS/MINERALS TAB (*BKC) 1 TABLET PO (09:35)
[2024-03-17] MEDS: FOLIC ACID 1 MG TABLET PO (09:35)
[2024-03-17] MEDS: POTASSIUM CHLORIDE 20 MEQ PACKET (FOR LIQUID) PO (09:35)
[2024-03-17] MEDS: SACUBITRIL/VALSARTAN 24-26 MG TABLET 1 TAB PO ×2 (09:35→21:34)
[2024-03-17] MEDS: AMOXICILLIN/CLAVULANATE K 875-125 MG TAB 1 TABLET PO ×2 (09:35→21:35)
[2024-03-17] MEDS: carvediloL 3.125 MG TABLET PO (09:35)
[2024-03-17] MEDS: FUROSEMIDE 20 MG TABLET PO (09:35)
[2024-03-17] MEDS: HEPARIN SODIUM 5,000 UNITS/ML VIAL 5000 UNITS SUB-Q ×2 (09:36→21:37)
--- NOTE | 2024-03-17 11:22 | P.HP_ITS ---
H&P: HPI History of Present Illness Date/Time: 03/17/24 11:22 Chief Complaint: physical deconditioning Narrative: This is a 83-year-old male with a significant past medical history of Parkinson's disease, GERD, pneumonia, pulmonary embolism, DVT, pacemaker who presented to [facility] for swing bed program. Patient was recently hospitalized at [facility] from 03/04/24-03/16/24 after sustaining a ground level fall and fracturing his left femur. He was taken to the OR on 03/08/2024 for an ORIF of his left femur intertrochanteric fracture with cephalomedullary nail With Dr. Thurman. In the postop. He was noted to have a adynamic ileus and general surgery was consulted for management of the ileus. He also was being followed by Urology due to some scrotal edema that he develop ed postoperatively. He did have an ultrasound of the scrotum which showed possible cellulitis however it was ruled out by urology services. Patient was however treated with Zyvox and Augmentin. Patient denies any fever, chills, nausea, vomiting, chest pain, or shortness of breath. He endorses abdominal pain due to gas and diarrhea. Review of Systems Review of Systems: All systems reviewed & are unremarkable except as noted in HPI and below Constitutional: Constitutional: Reports as per HPI and Reports no additional constitutional complaints Eyes: Eyes: Reports as per HPI and Reports no additional eye complaints ENT: Reports system reviewed and no additional complaints, except as documented and Reports as per HPI Cardiovascular: Cardiovascular: Reports as per HPI and Reports no additional cardiovascular complaints Respiratory: Respiratory: Reports as per HPI and Reports no additional respiratory complaints Gastrointestinal: Gastrointestinal: Reports as per HPI and Reports no additional gastrointestinal complaints Genitourinary: Genitourinary: Reports no additional male genitourinary complaints and Reports as per HPI Musculoskeletal: Musculoskeletal: Reports no additional musculoskeletal complaints and Reports as per HPI Integumentary/Breasts: Skin/Breast: Reports system reviewed and no additional complaints, except as docu and Reports as per HPI Neurologic: Reports system reviewed and no additional complaints, except as documented and Reports as per HPI Psychiatric: Psychiatric: Reports no additional psychiatric complaints and Reports as per HPI [facility] Past Medical History Medical History Pulmonary thrombosis Pacemaker Alcoholism Parkinsons disease Skin cancer Fatty liver Skull fracture Arthritis GERD (gastroesophageal reflux disease) Pneumonia Pulmonary embolism DVT (deep venous thrombosis) Seasonal allergies Surgical History Surgical History H/O heart valve replacement with bioprosthetic valve H/O local excision of skin lesion History of tonsillectomy Family History Family History Father Congestive heart failure Heart disease Mother Heart disease Breast cancer Sibling Breast cancer Hx of CABG Social History Social History Smoking packs per day: 1 Smoking cigarettes per day: 20.0 Years smoked: 20 Smoking pack-years: 20.00 Smoking status: Never smoker Second hand tobacco smoke exposure: No Additional smoking assessment comments: quit in 1971 Alcohol intake: never Drinks per week: 7 Substance use: never Substance use type: does not use Do You Feel Safe in your Home?: Yes Lack of Transportation: No Lack of Food: Never True Current Housing: I Have Housing Concerned About Future Housing: No Difficulty Paying Gas/Electric Bills: No Difficulty Paying for Meds: No Currently Unemployed: No Education: Master's Degree or Higher Difficulty w/ Childcare or Family Care: No Living arrangements: with family Additional living arrangements comments: Occupation/Education: retired Gender identity (if verbalized by the patient): Male Sexual Orientation (if Verbalized by the Patient): Straight or Heterosexual Spiritual care concerns: No Agree to blood products: Yes Meds Home Medications and Allergies Home Medications ?Medication ?Instructions ?Recorded ?Confirmed ?Type atorvastatin 80 mg tablet 80 mg PO HS #30 tabs 05/27/19 03/16/24 Rx apixaban 5 mg tablet 5 mg PO BID 05/23/21 03/16/24 History famotidine 10 mg tablet 10 mg PO DAILY 05/23/21 03/16/24 History folic acid 1 mg tablet 1 mg PO DAILY 05/23/21 03/16/24 History multivitamin-iron 9 mg-folic acid 1 tablet PO DAILY 05/23/21 03/16/24 History 400 mcg-calcium and minerals tablet (Thera-M) sacubitril 24 mg-valsartan 26 mg 1 tablet PO BID 05/23/21 03/16/24 History tablet carvedilol 3.125 mg tablet 3.125 mg PO ONCE 12/24/21 03/16/24 History loperamide 2 mg capsule (Imodium 2 mg PO Q6H PRN diarrhea 12/24/21 03/16/24 History A-D) hyoscyamine sulfate 0.125 mg 0.125 mg sublingual QID PRN 03/13/22 03/16/24 Rx sublingual tablet dyspepsia #120 tabs sacubitril 24 mg-valsartan 26 mg 1 tablet PO BID 03/04/24 03/16/24 History tablet (Entresto) amoxicillin 875 mg-potassium 1 tablet PO Q12H 3 days #6 tabs 03/16/24 03/16/24 Rx clavulanate 125 mg tablet furosemide 20 mg tablet 20 mg PO QAM 30 days #0 tabs 03/16/24 03/16/24 Rx oxycodone-acetaminophen 10 mg-325 1 tablet PO Q6H PRN Pain Rated 03/16/24 03/16/24 Rx mg tablet 7-10 5 days #12 tabs potassium chloride 20 mEq oral 20 meq PO DAILY 5 days #5 ea 03/16/24 03/16/24 Rx packet Allergies Allergy/AdvReac Type Severity Reaction Status Date / Time No Known Allergies Allergy Unknown Verified 10/23/22 11:41 Vital Signs Vital Signs - 24 hr 03/16/24 18:02 03/16/24 20:00 03/16/24 21:01 Temperature 97 F L Pulse Rate 67 80 78 Respiratory Rate 18 20 Blood Pressure 98/48 L Pulse Oximetry 96 98 Oxygen Delivery Room Air Room Air 03/17/24 00:00 03/17/24 09:35 Temperature 97.1 F L Pulse Rate 81 75 Respiratory Rate 20 Blood Pressure 108/50 L Pulse Oximetry 98 Oxygen Delivery Room Air Exam Narrative: General: In no acute distress, well nourished Head: atraumatic, no encephalopathy Eyes: PERRLA, sclera clear ENT: moist mucous membranes, nasal passages clear Neck: supple, no JVD, no adenopathy, trachea midline Cardiac: Normal S1 and S2. No murmur, gallops or friction rubs, peripheral pulses intact. Respiratory: Lungs clear to auscultation, no adventitious lung sounds, currently on room air Gastrointestinal: soft, non-distended, non-tender, hyperactive bowel sounds. reports gas discomfort and diarrhea : vazquez catheter in place draining adam urine, scrotal edema Extremities: moves all extremities well, no edema Skin: Left hip dressing in place Neuro: Alert and oriented x4, cranial nerves intact, no neuro deficits. Psych: normal mood, normal affect, interactive H&P: Results Labs Labs: Short CBC 03/17/24 Range/Units 05:19 WBC 3.3 L (4.8-10.8) K/mm3 Hgb 7.7 L (12.4-15.3) g/dL Hct 24.3 L (37.0-46.0) % Plt Count 146 L (150-420) K/mm3 BMP 03/17/24 05:19 Sodium 143 Potassium 2.6 L Chloride 107 Carbon Dioxide 27 BUN 11 Creatinine 0.85 Glucose 106 H Calcium 7.8 L Liver Function 03/17/24 Range/Units 05:19 Total Bilirubin 0.9 (0.00-1.00) mg/dL AST 50 H (15-37) U/L ALT 39 (16-63) U/L Alkaline Phosphatase 145 H (46-116) U/L Albumin 2.2 L (3.4-5.0) g/dL Assessment and Plan Assessment and plan (1) Weakness: Code(s): R53.1 - Weakness Status: Acute Assessment and Plan: * continue PT and OT (2) Closed intertrochanteric fracture of femur: Qualifiers: Encounter type: initial encounter Fracture alignment: displaced Laterality: left Qualified Code(s): S72.142A - Displaced intertrochanteric f racture of left femur, initial encounter for closed fracture Code(s): S72.143A - Displaced intertrochanteric fracture of unspecified femur, initial encounter for closed fracture Status: Acute Assessment and Plan: * status post ORIF of left femur intratrochanteric fracture with cephalomedullary nail by Dr. Brenner * continue heparin b.i.d. for DVT prophylaxis * continue PT and OT (3) CHF (congestive heart failure): Code(s): I50.9 - Heart failure, unspecified Status: Acute Assessment and Plan: * continue Coreg, Lasix, Entresto (4) Diarrhea: Code(s): R19.7 - Diarrhea, unspecified Status: Acute Assessment and Plan: * continue Imodium * Will start simethicone 80 mg p.o. q.i.d. for gas pain (5) Cellulitis: Code(s): L03.90 - Cellulitis, unspecified Status: Acute Assessment and Plan: * currently on Augmentin and linezolid * continue Vazquez catheter Quality VTE Prophylaxis VTE prophylaxis: pharmacologic ordered Hospitalist MIPS Advance Care Plan I have confirmed that the patient's Advanced Care Plan is present, code status is documented, or surrogate decision maker is listed in patient medical record.: Yes Medication Reconciliation I have utilized all available resources to obtain, update and review the patients current medications (includes all prescriptions, OTC, herbals, cannabis, and nutritional supplements).: Yes
[2024-03-17] MEDS: POTASSIUM CHLORIDE 20 MEQ ER TABLET 40 MEQ PO (12:53)
[2024-03-17] MEDS: SIMETHICONE 80 MG TAB.CHEW PO ×3 (14:28→21:36)
[2024-03-17 16:00] VITALS: BP 95/40; PULSE 78; RESP 18; TEMP 36.6; O2SAT 100
[2024-03-17 21:34] VITALS: PULSE 56
[2024-03-17] MEDS: carvediloL 1.56 MG TABLET PO (21:34)
[2024-03-18] VITALS: BP 140/56; PULSE 56; RESP 16; TEMP 36.7; O2SAT 98
--- OUTSIDE RECORDS SUMMARY | 2024-03-18 03:27 | XMS_ITS | Encounter Summary ---
Author Name [facility] [place] [facility] [place] Address [address] [place] [address] Care Team Providers Care Business Banking Representative Name Role Phone RAVIN CASTILLO Primary Care Provider Unavailabl e Insurance Providers: All historical and current Section Date Range: From patient's date of to the date document was created. This section includes the names of all active insurance providers for the patient. Insurance Provider Type of Coverage Plan Name Start of Policy Coverage End of Policy Coverage Group Number Member ID Insurance Provider's Telephone Number Policy Eaton's Name Patient's Relationship to Policy Eaton [facility] (WNR) MEDICARE ADVANTAGE MCR ([place]) Feb 23, 2021 [id number] [phone] SMART,PH ILLIP PATIENT [facility] (WNR) MEDICARE ADVANTAGE MCR ([place]) Feb 23, 2021 [id number] SMART,PH ILLIP PATIENT [employer] D[employer] [place]URANCE [place] IN[place] IDUAL Feb 23, 2021 [id number] SMART,PH ILLIP PATIENT MEDICARE ([place]) MEDICARE (M) PART B Oct 24, 2006 PART B [id number] [phone] SMART,PH ILLIP PATIENT MEDICARE ([place]) MEDICARE (M) PART A Oct 24, 2006 PART A [id number] SMART,PH ILLIP PATIENT [facility] (WNR) MEDICARE ADVANTAGE [facility] (WNR) Feb 23, 2021 [id number] KAREN SMART PATIENT Selected Encounter This section includes the information on record at [place] for the Encounter. 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 Date/Time Primary/Secondary Diagnosis Diagnosis Name Provider Source July 07, 2023 03:16 PM PRIMARY Carcinoma in situ of prostate RAVIN CASTILLO [facility] July 07, 2023 03:16 PM SECONDARY Acute embolism and thombos unsp deep vn unsp lower extremity RAVIN CASTILLO [facility] July 07, 2023 03:16 PM SECONDARY Cerebellar stroke syndrome ANNARAVIN B [facility] July 07, 2023 03:16 PM SECONDARY Male erectile dysfunction, unspecified ANNARAVIN Lopez [facility] July 07, 2023 03:16 PM SECONDARY Personal history of pulmonary embolism ANNARAVIN B [facility] July 07, 2023 03:16 PM SECONDARY Presence of cardiac pacemaker ANNARAVIN Lopez [facility] July 07, 2023 03:16 PM SECONDARY Pure hypercholesterolem ia, unspecified ANNARAVIN ELLIS [facility] Plan of Treatment: Future Appointments (+ 6 months) and Future Tests (+/- 45 days) The Plan of Treatment section includes [facility] care activities for the [facility] [place] [facility] This section includes future appointments and future orders which are active, pending or scheduled. Active, Pending, and Scheduled Orders This section includes a listing of several types of active, pending, and scheduled orders, including clinic medications orders, diagnostic test orders, procedure orders and consult orders; where the start date of the order is 45 days before the date of the Encounter or 45 days after the date of theEncounter. The data comes from all [place] treatment facilities. Test Date/Time Test Type Test Details Facility Name July 07, 2023 12:00 AM Laboratory - Chemistry Order COMPREHENSIVE METABOLIC PANEL GREEN LI/HEP BLD/PLAS PLASMA SP [facility] July 07, 2023 12:00 AM Laboratory - Chemistry Order CBC BLOOD SP [facility] July 07, 2023 12:00 AM Laboratory - Chemistry Order LIPID PANEL (STL) GREEN LI/HEP BLD/PLAS PLASMA SP ONCE [facility] July 07, 2023 12:00 AM Laboratory - Chemistry Order URINALYSIS (STL-PB) URINE SP ONCE [facility] Vital Signs: All taken on the encounter date This section contains inpatient and outpatient Vital Signs collected on the date of the Encounter. Date/Time Temperature Pulse Blood Pressure Respiratory Rate SP02 Pain Height Weight Body Mass Index Source July 07, 2023 02:12 PM 98.2 68 117/75 20 97 0 175.7 24 [facility] Social History: Smoking Status (Most current) and Tobacco Use (All prior to encounter date) This section includes the most current, and the historical, smoking and tobacco- related health factors from the [facility] where the Encounter took place. Current Smoking Status This section includes the most current smoking, or tobacco-related health factor, from the [place] facility where the Encounter took place. Date/Time Current Smoking Status Comment Cara ashby July 07, 2023 02:00 PM VA-TOBACCO FORMER USER [facility] Tobacco Use History This section includes a history of the smoking, or tobacco-related health factors, that were collected on or before the date of the Encounter. The data comes from the [place] facility where the Encounter took place. Date/Time Smoking Status/Tobacco Use Comment F acility July 07, 2023 02:00 PM VA-TOBACCO QUIT 15 YRS OR MORE [facility] Apr 02, 2021 10:00 AM VA-TOBACCO FORMER USER [facility] Apr 02, 2021 10:00 AM NE-TOBACCO QUIT 15 YRS OR MORE [facility] Encounter Notes: All associated encounter notes This section contains the clinical notes associated to the Encounter. Date/Time Encounter Note(s) Provider Source July 07, 2023 02:38 PM PRIMARY CARE NOTE: LOCAL TITLE: PRIMARY CARE PROVIDER ESTABLISHED VISIT STL STANDARD TITLE: PRIMARY CARE NOTE DATE OF NOTE: JULY 07, 2023@14:38 ENTRY DATE: JULY 07, 2023@14:38:46 AUTHOR: RAVIN CASTILLO EXP COSIGNER: URGENCY: STATUS: COMPLETED PRIMARY CARE PROVIDER ESTABLISHED VISIT ST Has ADDENDA Moorhead is a 82 year old WHITE MALE with past medical history of PMH: 1) Cerebellar stroke syndrome 2) Pulmonary embolism 3) Hypercholesterolemia 4) H/O: pacemaker in situ 5) Deep venous thrombosis comment: Bilateral-March 2021 6) Erectile dysfunction History of present illness Prostate cancer urology for hematuria - ua no infection was treated with medications -PET scan in [place] was showing the prostrate was smaller. mri scheduled at the end of august at [place] heart monitor - dr maurice put in a monitor - he is off elaquis us of legs 2 weeksago. 2 clots - on low dose asprin. intraocular lens in place. rt 12/13/21 lt11/16/20 Physician concerns ATP 3 cardiac event risk 20% Fibrosis 4 score 4.91 LDL cholesterol 112 lipid panel ordered Statin LFT ordered Platelets 140 nonva providers: DATA Review Measurement DT TEMP PULSE RESP BP HT WT F(C) IN(CM) LB(KG)[BMI] ---- ----- ---- -- ------ 07/03/2022 14:14 98.6(37.0) 74 20 127/76 72.0(183) 163(73.9)[22] 12/13/2021 11:16 97.5(36.4) 70 14 120/70 Measurement DT CVP POx CG CMH20(MMHG) (L/MIN)(%) IN(CM) ------ 07/03/2022 14:14 97 12/13/2021 11:16 99 Measurement DT Pain ---- 07/03/2022 14:14 4 12/13/2021 11:16 0 22.2 LABS: CREATININE 1.08 mg/dL 07/03/2022 15:01 EGFR (CKD-EPI 2020) 69.37 07/03/2022 15:01 HGB 14.4 g/dL 07/03/2022 15:01 HGA1C 5.5 % 12/03/2021 14:36 TRIGLYCERIDE 96 mg/dL 07/03/2022 15:01 CHOLESTEROL 167 mg/dL 07/03/2022 15:01 HDL(New) 36 L mg/dL 07/03/2022 15:01 CALCULATED LDL 112 mg/dL 07/03/2022 15:01 AKP: 84 (07/03/22 15:) ALB: 4.3 (07/03/22 15:) GOT/AST: 35 (07/03/22 15:) GPT/ALT: 17 (07/03/22 15:) T.Prot: 7.5 (07/03/22 15:) TBIL: 0.8 (07/03/22 15:) Medication reconciliation done General: pleasant, well appearing adult male in no apparent distress HEENT: speech fluent and clear, hearing grossly intact Neck: no carotid bruits Heart: regular rate and rhythm; no murmurs, rubs, or gallops new pacemaker in place Lungs: respirations regular and non-labored; CTA BL; no wheezes, rhonchi, or rales Abdomen: soft, nontender, nondistended, bowel sounds normal Extremities: warm, well-perfused; no clubbing, cyanosis, or edema Skin: no rashes or lesions noted; good turgor Neuro: A&O x 3, gait steady and normal-based Psych: appropriate mood and affect Assessment and plan #1Newly diagnosed prostate cancer.on medical therapy #2 thrombocytopenia CBC ordered-patient is on apixaban history of pulmonary embolism and DVT #3 elevated liver function tests CMP ordered AST/SGOT #4 hypercholesterolemia -low HDL-recommended exercise HDL 34 L mg/dL >- patient has been exercising more regularly 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 - Questions answered and is agreeable with treatment plan. - All new medications discussed/reviewed with Moorhead/caregiver including side effects/teratogenic side effects. Advised to keep all scheduled medical and follow-up appointments. was advised to seek medical treatment if symptoms do not improve and/or worsens. Time spent with patient 50 minutes Follow-up visit 11 months HEALTH MAINTENANCE: CRC screen -No data available for: COLONOSCOPY CONSULT REPORT STL age 45 - 75 for average risk No PSA (LAST 10 5Y) EO data found ADMINISTERED Immunization Series Date Facility Reaction Info COVID-19 (PFIZER), MRNA, LNP-S, * 3 11/23/2020 No Site COVID-19 (PFIZER), MRNA, LNP-S, * 2 05/16/2020 No Site COVID-19 (PFIZER), MRNA, LNP-S, * 1 04/25/2020 No Site INFLUENZA, UNSPECIFIED FORMULATI* 11/16/2021 [facility] INFLUENZA, UNSPECIFIED FORMULATI* . PNEUMOCOCCAL CONJUGATE PCV 13 04/02/2021 [facility]* PNEUMOCOCCAL POLYSACCHARIDE PPV23 08/13/2022 [facility]* TDAP 04/02/2021 [facility]* ZOSTER RECOMBINANT 2 11/12/2022 [facility]* ZOSTER RECOMBINANT 1 08/13/2022 [facility]* CONTRAINDICATED No data available REFUSED ======= No data available * Value is truncated; see the Detailed Immunizations Health Summary Component[DIM] for complete text Annual (Male)-The patient was counseled regarding the appropriate use of alcohol, screening procedures and recommended schedule for colonoscopy, psa, cholesterol, thyroid and diabetes screening, prevention of dental and periodontal disease, diet, regular sustained exercise for at least 30 minutes 3- 4 times per week, prostate cancer screening, regular use of seat belts. Recommend dilated eye exam and glaucoma screening every 2 years or as indicated by ophthalmology Discussed and recommended Whole Health modalities include Coaching, Well- Being activities andclasses, Chiropractic, Full Body Acupuncture, Integrative Medicine,Holistic RN Care, Health Behavior Specialists, and Functional Nutrition RETURN TO CLINIC: Return to Clinic order placed SUMMARY STATEMENT: Plan of care has been discussed with including expected therapeutic benefits and potential side effects of prescribed medication and treatments. verbalizes understanding and is in agreement with the plan of care. Patient was instructed to keep all scheduled appointments and contact manager language for any additional problems. PC Whole Health - PHP MAP: PERSONAL HEALTH PLAN INVENTORY & MAP Moorhead's Response: getting better- tennis. Eye Care At-Risk Screen : Patient identified to be at risk for the following eye condition(s): GLAUCOMA: Glaucoma Risk Factors Information: Encounter Diagnosis: 07/10/2022@15:00 H40.013 (ICD-10-CM) Open Angle with Borderline Findings, low Risk, Bilateral rank: PRIMARY Prov. Narr. - Open Angle with Borderline Findings, low Risk, Bilateral Action: Referral Ordered: Tele-Eye Screening Eye Care At-Risk Screen : Patient identified to be at risk for the following eye condition(s): GLAUCOMA: Glaucoma Risk Factors Information: Encounter Diagnosis: 07/10/2022@15:00 H40.013 (ICD-10-CM) Open Angle with Borderline Findings, low Risk, Bilateral rank: PRIMARY Prov. Narr. - Open Angle with Borderline Findings, low Risk, Bilateral Action: Referral Ordered: Tele-Eye Screening /michelle CASTILLO M.D. PRIMARY CARE PHYSICIAN Signed: 07/07/2023 15:16 07/07/2023 ADDENDUM STATUS: COMPLETED Labs done in April patient will share-fax number given /michelle CASTILLO M.D. PRIMARY CARE PHYSICIAN Signed: 07/07/2023 15:17 RAVIN CASTILLO [facility] July 07, 2023 02:19 PM NURSING NOTE: LOCAL TITLE: V15 PACT FACE TO FACE NOTE STL STANDARD TITLE: NURSING NOTE DATE OF NOTE: JULY 07, 2023@14:19 ENTRY DATE: JULY 07, 2023@14:19:35 AUTHOR: JAYDE HARO COSIGNER: URGENCY: STATUS: COMPLETED Provider Visit: Patient Identifiers : Full Name Date of Reason for visit: Established Follow-Up Mode of Arrival: Assistive Device: Walker Allergy Review: Patient has answered NKA Allergy list reviewed and remains current. Recent Vital Signs: Temperature: 98.2 F [36.8 C] (07/07/2023 14:12) Pulse: 68 (07/07/2023 14:12) Respiration: 20 (07/07/2023 14:12) B/P: 117/75 (07/07/2023 14:12) Pain: 0 (07/07/2023 14:12) Wt: 175.7 lb [79.70 kg] (07/07/2023 14:) Ht: 72 in [182.9 cm] (07/03/2022 14:14) BMI: 23.9 POX: 97% (07/07/2023 14:) Would you like to discuss any personal problem, family problem, alcohol use, drug use, or a mental or emotional illness? No Contact provided Primary Care phone number and encouraged to call if any questions or concerns. Review that after hours nurse line [phone] and emergency room are available 15/09 for patient use. Contact verbalized good understanding. Suicide Screen: C-SSRS Screening [place]-Suicide Severity Rating Scale (C-SSRS Screener) 1. Over the past month, have you wished you were or wished you could go to sleep and not wake up? No 2. Over the past month, have you had any actual thoughts of killing yourself? No 3. Over the past month, have you been thinking about how you might do this? Response not required due to responses to other questions. 4. Over the past month, have you had these thoughts and had some intention of acting on them? Response not required due to responses to other questions. 5. Over the past month, have you started to work out or worked out the details of how to kill yourself? Response not required due to responses to other questions. 6. If yes, at any time in the past month did you intend to carry out this plan? Response not required due to responses to other questions. 7. In your lifetime, have you ever done anything, started to do anything, or prepared to do anything to end your life (for example, collected pills, obtained a gun, gave away valuables, went to the roof but didn't jump)? No 8. If YES, was this within the past 3 months? Response not required due to responses to other questions. COVID-19 Immunization: Refused Pfizer Monovalent COVID-19 vaccine Immunization: COVID-19 (PFIZER), MRNA, LNP-S, PF, REX-SUCROSE, 30 MCG/0.3 ML (AGES 12+ YEARS) Refusal Reason: PATIENT DECISION Patient refuses all immunization(s) in the COVID-19 group Date Documented: 07/07/23 14:21 Alcohol Use Screen (AUDIT-C): Alcohol Screen: SCREEN FOR ALCOHOL (AUDIT-C) An alcohol screening test (AUDIT-C) was negative (score=0). 1. How often did you have a drink containing alcohol in the past year? Consider a drink to be a 12 ounce can or bottle of regular beer, 8 ounces of malt liquor, a 5 ounce glass of table wine, or a 1.5 ounce shot of liquor (like scotch, gin, or vodka). Never 2. How many drinks containing alcohol did you have on a typical day when you were drinking in the past year? Response not required due to responses to other questions. 3. How often did you have six or more drinks on one occasion in the past year? Response not required due to responses to other questions. Depression Screening: Perform PHQ-2 A PHQ-2 screen was performed. The score was 0 which is a negative screen for depression. Over the past two weeks, how often have you been bothered by the following problems? 1. Little interest or pleasure in doing things Not at all 2. Feeling down, depressed, or hopeless Not at all Homelessness/Food Insecurity Screen: In the past 2 months, have you been living in stable housing that you own, rent, or stay in as part of a household? Yes - Living in stable housing. Are you worried or concerned that in the next 2 months you may NOT have stable housing that you own, rent, or stay in as part of a household? No - Not worried about housing near future The reports the following: Within the past 12 months, you worried whether your food would run out before you got money to buy more. Never true Within the past 12 months, the food you bought just didn't last and you didn't have money to get more. Never true Frail/Elderly Screen: ADL Screen - Min Index of [place] in Activities of Daily Living Bathing: (3 Points) Receives no assistance (gets in and out of tub by self, if tub is usual means of bathing) Dressing: (3 Points) Gets clothes and gets completely dressed without assistance. Toileting: (3 Points) Goes to toilet room , cleans self, and arranges clothes without assistance (may use object for support such as cane, walker, or wheelchair, and may manage own night bedpan or commode, emptying same next morning) Transferring: (3 Points) Moves in and out of bed and in and out of chair without assistance (may be using object for support, such as cane or walker) Continence: (3 Points) Controls urination and bowel movement completely by self Feeding: (3 Points) Feeds self without assistance Total Score: 18 Points 18 = High (patient independent) 6 = Low (patient very dependent) IADL Screen - [place] Instrumental Activities of Daily Living Scale Ability to use telephone: (1 point) Operates Telephone on own initiative; looks up and dials numbers. Shopping: (0 points) Needs to be accompanied on any shopping trip. Food preparation: (1 point) Plans, prepares, and serves adequate meals independently. Housekeeping: (1 point) Performs light daily tasks, but cannot maintain acceptable level of cleanliness. Laundry: (1 point) Launders small items, rinses socks, stockings, etc. Mode of transportation: (1 point) Arranges own travel via taxi, but does not otherwise use public transportation. Responsibility for own medications: (1 point) Is responsible for taking medications in correct dosages at correct times. Ability to handle finances: (1 point) Manages day-to-day purchases, but needs help with banking, major purchases, etc. Total score: 7 points 8 = High function, independent 0 = Low function, dependent Falls Screen: No falls within the past 12 months. Incontinence Screen: No incontinence. Learning Assessment: - * This patient's learning ABILITIES, BARRIERS to learning, CULTURAL and JAINISM beliefs, and learning PREFERENCES were assessed. Following are findings of note: Patient reads well. LANGUAGE Patient reports that Sammarinese is preferred language for healthcare. Patient reports learning preference is to refer to handouts. Patient reports learning preference is attending one-to-one or group demonstrations. Tobacco Use Screening: The patient is a former tobacco user. The patient quit fifteen or more years ago. /kang/ JAYDE HARO LPN LICENSED PRACTICAL NURSE Signed: 07/07/2023 14:25 [facility]
--- OUTSIDE RECORDS SUMMARY | 2024-03-18 03:27 | XMS_ITS | Continuity of Care Document ---
Author Name [facility] Organization [facility] Care Team Providers Care Materials Mgmt Tech Name Role Phone [facility] Unavailable Unavailable Problems Combined list of problems from [facility] and [facility] facilities. It does not include entries that were removed or entered in error. Problem Status Onset Date Problem Type Date of Resolution Comments Source Cerebellar stroke syndrome Active Condition [facility] Deep venous thrombosis Active Condition Apr 02, 2021 Entered By: RAVIN CASTILLO Comment: Bilateral-F ebruary [address] [facility] Erectile dysfunction Active Condition [facility] H/O: pacemaker in situ Active Condition [facility] Hypercholesterolemia Active Condition [facility] Prostate cancer care review done Active Condition [facility] Pulmonary embolism Active Condition 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 Medication Details Route Status Patient Instructions Prescription Expires Prescription Number Last Dispense Date Ordering Provider Order Date Order Qty Source APIXABAN 5MG TAB TAKE ONE TABLET BY MOUTH TWICE A DAY ORAL ACTIVE GERALDINE CASTILLO E B 2021 [facility]IO Rosanne ATORVASTATI N CA 80MG TAB TAKE ONE TABLET BY MOUTH EVERY EVENING ORAL ACTIVE GERALDINE CASTILLO E B 2021 [facility] N CARVEDILOL 6.25MG TAB TAKE ONE-HALF TABLET BY MOUTH TWICE A DAY ORAL ACTIVE GERALDINE CASTILLO E B 2021 [facility] N FOLIC ACID 1MG TAB TAKE ONE TABLET BY MOUTH ONCE A DAY ORAL ACTIVE NARRA,SRE E B 2021 [facility] N FUROSEMIDE 20MG TAB TAKE ONE TABLET BY MOUTH EVERY MORNING ORAL ACTIVE NARRA,SRE E B 2021 [facility] DIV[facility] N MULTIVITAMI NS W/MINERALS CAP/TAB TAKE 1 CAP/TAB BY MOUTH ONCE A DAY ORAL ACTIVE NARRA,SRE E B 2021 [facility] N SACUBITRIL 49MG/VALSAR BACH 51MG TAB TAKE ONE-HALF TABLET BY MOUTH TWICE A DAY ORAL ACTIVE NARRA,SRE E B 2021 [facility] N SILDENAFIL CITRATE 50MG TAB TAKE ONE-HALF TABLET BY MOUTH TWO TIMES PER WEEK NEEDED FOR ERECTILE DYSFUNCT ION (TAKE 60 MINUTES PRIOR TO SEXUAL ACTIVITY ) - LIMIT 6 DOSES PER 30 DAYS ORAL 11/24/2023 [id number] 3 NORMANA,SRE E B 2022 6 [facility] N THIAMINE 50MG TAB TAKE ONE TABLET BY MOUTH ONCE A DAY ORAL ACTIVE NORMANA,SRE E B 2021 [facility] N Immunizations Combined list of available immunizations from the Department of Defense and Veterans Affairs facilities. Immunization Series Date Given Administered By Site Reaction Lot Number CVX Code Drug Financial Services Counselor Status Comments Source ZOSTER RECOMBINANT 2 2022 KARLA BARLOW RIGHT DELTO ID [id number] 187 complet ed [facility] N PNEUMOCOCCAL POLYSACCHARID E [id number] 2022 KARY BUCKNER RIGHT DELTO ID [id number] 33 complet ed [facility] N ZOSTER RECOMBINANT 1 2022 KARY BUCKNER LEFT DELTO ID [id number] 187 complet ed [facility] N INFLUENZA, UNSPECIFIED FORMULATION 2021 88 complet ed [facility] DIV[facility]IO N PNEUMOCOCCAL CONJUGATE PCV 13 2021 133 complet ed [facility] N TDAP 2021 115 complet ed [facility] DIVISIO N COVID-19 (PFIZER), MRNA, LNP-S, PF, 30 MCG/0.3 ML DOSE 3 2020 208 complet ed [facility] DIVISIO N COVID-19 (PFIZER), MRNA, LNP-S, PF, 30 MCG/0.3 ML DOSE 2 2020 208 complet ed [facility] COVID-19 (PFIZER), MRNA, LNP-S, PF, 30 MCG/0.3 ML DOSE 1 2020 208 complet ed [facility] DIV[facility]IO N INFLUENZA, UNSPECIFIED FORMULATION 2019 88 complet ed [facility] DIV[facility]IO N Results Combined list of recent chemistry, hematology and other laboratory results from Department of Defense and Veterans Affairs, ranging from 15 months to all on record, depending upon the facility. Order Name Results Value Reference Range Date Interpretation Specimen Comments Source LIPID PANEL (STL) CHOLESTEROL [MASS/VOLUM E] IN SERUM OR PLASMA 167 mg/dL 0 - 200 07/03 Specimen Type: PLASMA Comment: No hemolysis noted. Ordering Provider: RAVIN CASTILLO Report Released Date/Time: July 03, 2022 02:49 PM Reporting Lab: [facility] DIV[facility]1 [facility] [phone] Performing Lab: [facility] #1 [facility] [phone] [place] [address] DIVISION LIPID PANEL (STL) TRIGLYCERID E [MASS/VOLUM E] IN SERUM OR PLASMA 96 mg/dL 0 - 150 07/03 Specimen Type: PLASMA Comment: No hemolysis noted. Ordering Provider: RAVIN CASTILLO Report Released Date/Time: July 03, 2022 02:49 PM Reporting Lab: [facility]1 [facility] [phone] Performing Lab: [facility] #1 [facility] [phone] [place] [address] DIVISION LIPID PANEL (STL) CHOLESTEROL IN LDL [MASS/VOLUM E] IN SERUM OR PLASMA BY CALCULATION 112 mg/dL 07/03 Specimen Type: PLASMA Comment: No hemolysis noted. Ordering Provider: RAVIN CASTILLO Report Released Date/Time: July 03, 2022 02:49 PM Reporting Lab: [facility] #1 [place] [address] Performing Lab: [facility] #[address] LIPID PANEL (STL) CHOLESTEROL IN HDL [MASS/VOLUM E] IN SERUM OR PLASMA 36 mg/dL 40 07/03 L Specimen Type: PLASMA Comment: No hemolysis noted. Ordering Provider: RAVIN CASTILLO Report Released Date/Time: July 03, 2022 02:49 PM Reporting Lab: [facility] #1 [place] [address] Performing Lab: [facility] DIV[facility] #[address] DIVISION CBC LEUKOCYTES [#/VOLUME] IN BLOOD BY AUTOMATED COUNT 6.7 10*3/u L 3.6 - 11.2 07/03 Specimen Type: BLOOD No comment entered. Ordering Provider: RAVIN CASTILLO Report Released Date/Time: July 03, 2022 02:49 PM Reporting Lab: [facility] #1 [place] [address] Performing Lab: [facility] #[address] DIVISION CBC ERYTHROCYTE S [#/VOLUME] IN BLOOD BY AUTOMATED COUNT 5.16 10*6/u L 4.10 - 5.70 07/03 Specimen Type: BLOOD No comment entered. Ordering Provider: RAVIN CASTILLO Report Released Date/Time: July 03, 2022 02:49 PM Reporting Lab: [facility] #1 [place] [address] Performing Lab: [facility] #[address] [facility] DIVISION CBC HEMOGLOBIN [MASS/VOLUM E] IN BLOOD 14.4 g/dL 13.1 - 16.8 07/03 Specimen Type: BLOOD No comment entered. Ordering Provider: RAVIN CASTILLO Report Released Date/Time: July 03, 2022 02:49 PM Reporting Lab: [facility] #1 [place] [address] Performing Lab: [facility] DIV[facility] #[address] DIVISION CBC HEMATOCRIT [VOLUME FRACTION] OF BLOOD 43.5 38.2 - 48.4 07/03 Specimen Type: BLOOD No comment entered. Ordering Provider: RAVIN CASTILLO Report Released Date/Time: July 03, 2022 02:49 PM Reporting Lab: [facility] #1 [place] [address] Performing Lab: [facility] DIV[facility] #[address] DIVISION CBC MCV [ENTITIC VOLUME] BY AUTOMATED COUNT 84.3 fL 80.0 - 100.0 07/03 Specimen Type: BLOOD No comment entered. Ordering Provider: RAVIN CASTILLO Report Released Date/Time: July 03, 2022 02:49 PM Reporting Lab: [facility]1 [place] [address] Performing Lab: [facility] #[address] DIVISION CBC MCH [ENTITIC MASS] BY AUTOMATED COUNT 27.9 pg 27.0 - 34.0 07/03 Specimen Type: BLOOD No comment entered. Ordering Provider: RAVIN CASTILLO Report Released Date/Time: July 03, 2022 02:49 PM Reporting Lab: [facility] #1 [place] [address] Performing Lab: [facility] #[address] DIVISION CBC MCHC [MASS/VOLUM E] BY AUTOMATED COUNT 33.1 g/dL 33.0 - 36.0 07/03 Specimen Type: BLOOD No comment entered. Ordering Provider: RAVIN CASTILLO Report Released Date/Time: July 03, 2022 02:49 PM Reporting Lab: [facility] #1 [place] [address] Performing Lab: [facility] DIVISION #[address] CBC PLATELETS [#/VOLUME] IN BLOOD BY AUTOMATED COUNT 140 10*3/u L 150 - 400 07/03 L Specimen Type: BLOOD No comment entered. Ordering Provider: RAVIN CASTILLO Report Released Date/Time: July 03, 2022 02:49 PM Reporting Lab: [facility] #1 [place] [address] Performing Lab: [facility] DIVISION #[address] DIVISION CBC PLATELET MEAN VOLUME [ENTITIC VOLUME] IN BLOOD BY AUTOMATED COUNT 11.4 fL 7.5 - 11.2 07/03 H Specimen Type: BLOOD No comment entered. Ordering Provider: RAVIN CASTILLO Report Released Date/Time: July 03, 2022 02:49 PM Reporting Lab: [facility] #1 [place] [address] Performing Lab: [facility] DIVISION #[address] CBC ERYTHROCYTE DISTRIBUTIO N WIDTH [RATIO] BY AUTOMATED COUNT 12.3 11.8 - 15.1 07/03 Specimen Type: BLOOD No comment entered. Ordering Provider: RAVIN CASTILLO Report Released Date/Time: July 03, 2022 02:49 PM Reporting Lab: [facility] #1 [place] [address] Performing Lab: [facility] DIVISION #[address] DIVISION CBC LYMPHOCYTES /100 LEUKOCYTES IN BLOOD BY AUTOMATED COUNT 23 07/03 Specimen Type: BLOOD No comment entered. Ordering Provider: RAVIN CASTILLO Report Released Date/Time: July 03, 2022 02:49 PM Reporting Lab: [facility] #1 [place] [address] Performing Lab: [facility] DIVISION #[address] DIVISION CBC MONOCYTES/1 00 LEUKOCYTES IN BLOOD BY AUTOMATED COUNT 8 07/03 Specimen Type: BLOOD No comment entered. Ordering Provider: RAVIN CASTILLO Report Released Date/Time: July 03, 2022 02:49 PM Reporting Lab: [facility] #1 [place] [address] Performing Lab: [facility] DIVISION #[address] DIVISION CBC NEUTROPHILS /100 LEUKOCYTES IN BLOOD BY AUTOMATED COUNT 67 07/03 Specimen Type: BLOOD No comment entered. Ordering Provider: RAVIN CSATILLO Report Released Date/Time: July 03, 2022 02:49 PM Reporting Lab: [facility] #1 [place] [address] Performing Lab: [facility] DIV[facility] #[address] DIVISION CBC EOSINOPHILS /100 LEUKOCYTES IN BLOOD BY AUTOMATED COUNT 1 07/03 Specimen Type: BLOOD No comment entered. Ordering Provider: RAVIN CASTILLO Report Released Date/Time: July 03, 2022 02:49 PM Reporting Lab: [facility] #1 [place] [address] Performing Lab: [facility] DIVISION #[address] DIVISION CBC BASOPHILS/1 00 LEUKOCYTES IN BLOOD BY AUTOMATED COUNT 1 07/03 Specimen Type: BLOOD No comment entered. Ordering Provider: RAVIN CASTILLO Report Released Date/Time: July 03, 2022 02:49 PM Reporting Lab: [facility] #1 [place] [address] Performing Lab: [facility] DIV[facility] #[address] DIVISION CBC LYMPHOCYTES [#/VOLUME] IN BLOOD BY AUTOMATED COUNT 1.52 10*3/u L 0.77 - 4.50 07/03 Specimen Type: BLOOD No comment entered. Ordering Provider: RAVIN CASTILLO Report Released Date/Time: July 03, 2022 02:49 PM Reporting Lab: [facility] #1 [place] [address] Performing Lab: [facility] DIV[facility] #[address] DIVISION CBC MONOCYTES [#/VOLUME] IN BLOOD BY AUTOMATED COUNT 0.53 10*3/u L 0.19 - 1.50 07/03 Specimen Type: BLOOD No comment entered. Ordering Provider: RAVIN CASTILLO Report Released Date/Time: July 03, 2022 02:49 PM Reporting Lab: [facility] #1 [place] [address] Performing Lab: [facility] DIVISION #[address] DIVISION CBC NEUTROPHILS [#/VOLUME] IN BLOOD BY AUTOMATED COUNT 4.51 10*3/u L 2.10 - 8.00 07/03 Specimen Type: BLOOD No comment entered. Ordering Provider: RAVIN CASTILLO Report Released Date/Time: July 03, 2022 02:49 PM Reporting Lab: [facility] DIV[facility] #1 [place] [address] Performing Lab: [facility] DIV[facility] #[address] DIVISION CBC EOSINOPHILS [#/VOLUME] IN BLOOD BY AUTOMATED COUNT 0.09 10*3/u L 0.00 - 0.60 07/03 Specimen Type: BLOOD No comment entered. Ordering Provider: RAVIN CASTILLO Report Released Date/Time: July 03, 2022 02:49 PM Reporting Lab: [facility] #1 [place] [address] Performing Lab: [facility] DIVISION #[address] DIVISION CBC BASOPHILS [#/VOLUME] IN BLOOD BY AUTOMATED COUNT 0.04 10*3/u L 0.00 - 0.20 07/03 Specimen Type: BLOOD No comment entered. Ordering Provider: RAVIN CASTILLO Report Released Date/Time: July 03, 2022 02:49 PM Reporting Lab: [facility] DIV[facility] #1 [place] [address] Performing Lab: [facility] DIVISION #[address] DIVISION CBC PLATELETS RETICULATED /100 PLATELETS IN BLOOD BY AUTOMATED COUNT 5.8 1.0 - 7.0 07/03 Specimen Type: BLOOD No comment entered. Ordering Provider: RAVIN CASTILLO Report Released Date/Time: July 03, 2022 02:49 PM Reporting Lab: [facility] DIV[facility] #1 [place] [address] Performing Lab: [facility] DIVISION #[address] DIVISION COMPREHENS ANANTH METABOLIC PANEL CREATININE [MASS/VOLUM E] IN SERUM OR PLASMA 1.08 mg/dL 0.70 - 1.30 07/03 Specimen Type: PLASMA Comment: No hemolysis noted. Ordering Provider: RAVIN CASTILLO Report Released Date/Time: July 03, 2022 02:49 PM Reporting Lab: [facility] DIVISION #1 [place] [address] Performing Lab: [facility] DIVISION [address] DIVISION COMPREHENS ANANTH METABOLIC PANEL UREA NITROGEN [MASS/VOLUM E] IN SERUM OR PLASMA 22 mg/dL 9 - 25 07/03 Specimen Type: PLASMA Comment: No hemolysis noted. Ordering Provider: RAVIN CASTILLO Report Released Date/Time: July 03, 2022 02:49 PM Reporting Lab: [facility] DIVISION #1 [place] [address] Performing Lab: [facility] DIVISION #[address] DIVISION COMPREHENS ANANTH METABOLIC PANEL GLUCOSE [MASS/VOLUM E] IN SERUM OR PLASMA 110 mg/dL 72 - 99 07/03 H Specimen Type: PLASMA Comment: No hemolysis noted. Ordering Provider: RAVIN CASTILLO Report Released Date/Time: July 03, 2022 02:49 PM Reporting Lab: [facility] DIVISION #1 [place] [address] Performing Lab: [facility] DIVISION #[address] DIVISION COMPREHENS ANANTH METABOLIC PANEL SODIUM [MOLES/VOLU ME] IN SERUM OR PLASMA 139 meq/L 136 - 145 07/03 Specimen Type: PLASMA Comment: No hemolysis noted. Ordering Provider: RAVIN CASTILLO Report Released Date/Time: July 03, 2022 02:49 PM Reporting Lab: [facility] DIV[facility] #1 [place] [address] Performing Lab: [facility] DIVISION #[address] DIVISION COMPREHENS ANANTH METABOLIC PANEL POTASSIUM [MOLES/VOLU ME] IN SERUM OR PLASMA 4.9 meq/L 3.5 - 5.0 07/03 Specimen Type: PLASMA Comment: No hemolysis noted. Ordering Provider: RAVIN CASTILLO Report Released Date/Time: July 03, 2022 02:49 PM Reporting Lab: [facility] DIVISION #1 [place] [address] Performing Lab: [facility] #1 [facility] [phone] [place] [address] DIVISION COMPREHENS ANANTH METABOLIC PANEL CHLORIDE [MOLES/VOLU ME] IN SERUM OR PLASMA 104 meq/L 98 - 107 07/03 Specimen Type: PLASMA Comment: No hemolysis noted. Ordering Provider: RAVIN CASTILLO Report Released Date/Time: July 03, 2022 02:49 PM Reporting Lab: [facility] DIVISION #1 [place] [address] Performing Lab: [facility] DIVISION #1 [place] [id number] DIVISION COMPREHENS ANANTH METABOLIC PANEL CARBON DIOXIDE, TOTAL [MOLES/VOLU ME] IN SERUM OR PLASMA 26 meq/L 22 - 31 07/03 Specimen Type: PLASMA Comment: No hemolysis noted. Ordering Provider: RAVIN CASTILLO Report Released Date/Time: July 03, 2022 02:49 PM Reporting Lab: [facility] DIVISION #1 [place] [address] Performing Lab: [facility] DIVISION #[address] DIVISION COMPREHENS ANANTH METABOLIC PANEL CALCIUM [MASS/VOLUM E] IN SERUM OR PLASMA 10.4 mg/dL 8.4 - 10.4 07/03 Specimen Type: PLASMA Comment: No hemolysis noted. Ordering Provider: RAVIN CASTILLO Report Released Date/Time: July 03, 2022 02:49 PM Reporting Lab: [facility] DIVISION #1 [place] [address] Performing Lab: [facility] DIVISION #[address] DIVISION COMPREHENS ANANTH METABOLIC PANEL PROTEIN [MASS/VOLUM E] IN SERUM OR PLASMA 7.5 g/dL 6.0 - 8.6 07/03 Specimen Type: PLASMA Comment: No hemolysis noted. Ordering Provider: RAVIN CASTILLO Report Released Date/Time: July 03, 2022 02:49 PM Reporting Lab: [facility] DIV[facility] #1 [place] [address] Performing Lab: [facility] DIVISION #[address] COMPREHENS ANANTH METABOLIC PANEL ALBUMIN [MASS/VOLUM E] IN SERUM OR PLASMA 4.3 g/dL 3.4 - 5.0 07/03 Specimen Type: PLASMA Comment: No hemolysis noted. Ordering Provider: RAVIN CASTILLO Report Released Date/Time: July 03, 2022 02:49 PM Reporting Lab: [facility] DIV[facility] #1 [place] [address] Performing Lab: [facility] DIVISION #[address] COMPREHENS ANANTH METABOLIC PANEL BILIRUBIN.T OTAL [MASS/VOLUM E] IN SERUM OR PLASMA 0.8 mg/dL 0.2 - 1.2 07/03 Specimen Type: PLASMA Comment: No hemolysis noted. Ordering Provider: RAVIN CASTILLO Report Released Date/Time: July 03, 2022 02:49 PM Reporting Lab: [facility] DIV[facility] #1 [place] [address] Performing Lab: [facility] DIVISION #[address] DIVISION COMPREHENS ANANTH METABOLIC PANEL ALKALINE PHOSPHATASE [ENZYMATIC ACTIVITY/VO LUME] IN SERUM OR PLASMA 84 U/L 40 - 150 07/03 Specimen Type: PLASMA Comment: No hemolysis noted. Ordering Provider: RAVIN CASTILLO Report Released Date/Time: July 03, 2022 02:49 PM Reporting Lab: [facility] DIVISION #1 [place] [address] Performing Lab: [facility] DIVISION #[address] DIVISION COMPREHENS ANANTH METABOLIC PANEL ASPARTATE AMINOTRANSF ERASE [ENZYMATIC ACTIVITY/VO LUME] IN SERUM OR PLASMA 35 U/L 5 - 34 07/03 H Specimen Type: PLASMA Comment: No hemolysis noted. Ordering Provider: RAVIN CASTILLO Report Released Date/Time: July 03, 2022 02:49 PM Reporting Lab: [facility] DIVISION #1 [facility] [address] Performing Lab: [facility] DIVISION #[address] [facility] [phone] DIVISION COMPREHENS ANANTH METABOLIC PANEL ALANINE AMINOTRANSF ERASE [ENZYMATIC ACTIVITY/VO LUME] IN SERUM OR PLASMA 17 U/L 8 - 40 07/03 Specimen Type: PLASMA Comment: No hemolysis noted. Ordering Provider: RAVIN CASTILLO Report Released Date/Time: July 03, 2022 02:49 PM Reporting Lab: [facility] DIV[facility] #1 [facility] [phone] Performing Lab: [facility] DIV[facility] #1 [facility] [phone] DIVISION COMPREHENS ANANTH METABOLIC PANEL GLOMERULAR FILTRATION RATE/1.73 SQ M.PREDICTED [VOLUME RATE/AREA] IN SERUM, PLASMA OR BLOOD BY CREATININE- BASED FORMULA (CKD-EPI 2020) 69.37 07/03 Specimen Type: PLASMA Comment: No hemolysis noted. Ordering Provider: RAVIN CASTILLO Report Released Date/Time: July 03, 2022 02:49 PM Reporting Lab: [facility] #1 [facility] [address] Performing Lab: [facility] #1 [facility] [phone] [place] [address] Vital Signs Combined list of inpatient and outpatient Vital Signs from Department of Defense and Veterans Affairs, ranging from 12 months to all on record, depending upon the facility. Vital Sign Value Date Comments Source SYSTOLIC BLOOD PRESSURE 117 07/07/2023 14:12:42 [facility] DIASTOLIC BLOOD PRESSURE 75 07/07/2023 14:12:42 [facility] PULSE OXIMETRY 97 07/07/2023 14:12:42 [facility] WEIGHT 175.7 07/07/2023 14:12:42 [facility] BMI 24kg/m2 07/07/2023 14:12:42 [facility] PAIN 0 07/07/2023 14:12:42 [facility] TEMPERATURE 98.2 07/07/2023 14:12:42 [facility] PULSE 68 07/07/2023 14:12:42 [facility] RESPIRATION 20 07/07/2023 14:12:42 [facility] Encounters Combined list of: 1) Encounters from Department of Veterans Affairs facilities going back up to thelast 18 months. 2) Encounters from the Department of [facility] facilities going back up to 280 months. Location Location Details Encounter Type Encounter Number Reason For Visit Attending Provider ADM Date DC Date Status Disposition Source [facility] OFF/OP EST JUNE X REQ PHY/QHP [id number] Diagnos is: ICD-10- CM Z23 Encount er for immuniz ation<b r/> BIENVENIDO BARLOW M 11/12 [facility] N [facility] DIV[facility] OFFICE O/P EST HI 40 MIN [id number] Diagnos is: ICD-10- CM D07.5 Carcino ma in situ of prostat e
RAVIN CASTILLO 07/06 [facility] N [facility] Outpatient Encounter [id number] 07/13 [facility] N Social History Combined list of available smoking, tobacco, and other social history from [facility] of Defense and [facility] facilities. Social History Type Response Date Comment Sourc e Tobacco smoking status [facility]IS [facility] FORMER USER 07/07/2023 [facility]2022 [facility] of [facility] [facility] of [facility] 04[facility]27/[address] [facility] Plan of Care List of future care activities from Department of [facility] Affairs facilities. Additional future care activities may be listed in the Assessment and Plan section. Date/Time Care Activity Care Activity Detail Facili ty 04/19/2024 AMBULATORY - SURGERY AMBULATORY - SURGERY [facility] 06/09/2024 AMBULATORY - MEDICINE AMBULATORY - MEDICI [facility]
--- OUTSIDE RECORDS SUMMARY | 2024-03-18 03:28 | XMS_ITS | Referral Summary ---
Author Organization [facility] Address [address] [place] [id number] Care Team Providers Care Exhibition Organiser Name Role Phone KiananiecyGeorgiana moncada DO Primary Care Provider [phone] Encounters Date Type Department Care Team Description 03/17/2024 Telephone [facility] Medical [facility] Cardiology [address] [place] [address] [place] [phone] Rafael Pineda MD 03/16/2024 Orders Only [facility] Medical [facility] Cardiology [address] [place] [address] [place] [phone] Rloy Camacho MD 03/08/2024 Telephone [facility] Cardiology [address] [place] [address] [place] [phone] Rafael Pineda MD 03/07/2024 Telephone [facility] Cardiology [address] [facility] 8th [place] [address] [place] [address] La Patel NP 01/20/2024 1:00 PM INCINERATOR OPERATOR Office Visit [facility] Medical [facility] Cardiology [address] [place] [address] [place] [phone] Rafael Pineda MD S/P TAVR (transcatheter aortic valve replacement) (Primary Dx); PAF (paroxysmal atrial fibrillation) (CMS/HCC) (HCC); Chronic anticoagulation; CHB (complete heart block) (CMS/HCC) (HCC); Pacemaker; History of DVT (deep vein thrombosis); History of pulmonary embolism from Last 3 Months Allergies No known active allergies Medications folic acid (FOLVITE) 1 mg tablet Take 1 tablet (1 mg total) by mouth daily 90 tablet 02/11/2021 Active famotidine (PEPCID) 10 mg tablet Take 1 tablet (10 mg total) by mouth daily Active magnesium oxide (MAG-OX) 400 mg (241.3 mg elemental magnesium) tablet Take 1 tablet (400 mg total) by mouth daily 03/26/2022 Active hyoscyamine (LEVSIN) 0.125 mg SL tablet Take 1 tablet (0.125 mg total) by mouth 05/28/2022 Active multivitamin,tx -minerals capsule Take 1 tablet by mouth daily Active sacubitriL-vals salvador (ENTRESTO) 24-26 mg tabletIndicatio ns:chronic heart failure Take 1 tablet by mouth 2 (two) times a day 120 tablet 3 03/13/2023 Active apixaban (ELIQUIS) 5 mg tabletIndicatio ns:S/P TAVR (transcatheter aortic valve replacement) Take 1 tablet (5 mg total) by mouth 2 (two) times a day 60 tablet 11 09/01/2023 Active carvediloL (COREG) 3.125 mg tablet Take 1/2 (one-half) tablet by mouth twice daily Strength: 3.125 mg 90 tablet 2 12/07/2023 Active furosemide (LASIX) 20 mg tablet Take 1 tablet by mouth once daily 90 tablet 01/26/2024 Active atorvastatin (LIPITOR) 80 mg tablet Take 1 tablet by mouth nightly 90 tablet 3 02/02/2024 Active Active Problems Problem Noted Date Diagnosed Date Cardiac pacemaker in situ 08/12/2023 Overview (08/12/2023): Biotronik Edora Dual Pacemaker. DOI 01/27/2021-Dr Cast. Patient prefers to follow with [facility]. 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 man with a history of likely 3 years of gait and balance changes that began in 2019 at age 31 with slowing of gait and a sense of unsteadiness, soon accompanied by falls. In April 2019 he was found to have an area of abnormal imaging in the left medial elisha with evidence of abnormal diffusion, for which I did not see manifestations on exam today. He had diarrhea on a brief trial of carbidopa/levodopa. - The examination revealed prominent parkinsonism with hypomimia, limb hypokinesia, overall bradykinesia, rigidity, difficulty arising from a chair, stooped posture, slow shuffling gait with frequent freezing of gait, and impaired postural responses. The motor UPDRS score today was 30. - The syndrome is strongly suggestive of Parkinson's disease, regardless of what the elisha lesion seen on MRI two years ago might have represented. He has symptoms and exam findings strongly suggestive of PD, including freezing of gait, and no brain lesion that could be causing parkinsonism. - I explained my impression and recommended another trial of carbidopa/levodopa. The reaction he had to this medication, diarrhea, is not a typical side effect of levodopa and instead may have represented an anxiety reaction. I will start at a very low dose and uptitrate slowly. PLAN (phrased as addressed to the patient): - As we discussed, your walking and balance are affected in a way that makes Parkinson's disease a possible diagnosis. - For this reason, I strongly encourage you to try again carbidopa/levodopa. - Start carbidopa/levodopa 25/100 (prescribed): week 1, 1/2 tab 2x/day, morning and dinner; week 2, 1/2 tab 3x/day, morning, midday, dinner; week 3, 1-0.5-0.5 tabs; week 4, 1-1-0.5; week 5 and after, 1 tab 3x/day. - Look out for the following possible side effects, and call my office if any of these side effects appear: nausea, dizziness when standing, drowsiness, vivid dreams, nightmares, confusion, hallucinations (seeing things), paranoia, fainting (which can cause falls and head injury). - Contact my office in 8 weeks to report how often you have freezing of gait. My total encounter time on 07/03/2021 was 64 minutes which was spent in the activities documented in the note. This includes time spent prior to the visit and after the visit in direct care of the patient. This time does not include time spent in any separately reportable services. NOTE: The present note includes, below, the line Ambulatory referral to Neurology . This statement is included as a mandatory component of the note template that I do not have the ability to remove. This statement has no clinical significance. I am NOT ordering a referral to Neurology. Assessment & Plan (02/22/2020 4:20 PM INCINERATOR OPERATOR): Mr. Eren Kulkarni is a 79 y.o. male, who presents for evaluation of possible PD. His thinks that at least since 2018 she has asked him to warp picker his left foot when walking. He also noted progressive inability to flex his left knee. In April 2019, he had new onset of slurred speech and left facial droop. He was admitted and found to have a left pontine stroke. The discharge summary points towards weakness on both side and changes in tone bilaterally concerning for PD. While in the rehab, he was started on carbidopa-levodopa at a very low dose without significant benefits or side effects. He stopped the medication several months ago because he did not have a person to prescribe it as he was transitioning physicians. Currently, he is bothered by inability to move freely his left knee. He is independently for almost all ADLs, but may need some assistance with bathing. His also mentioned him being more emotional and he admitted he has teared up more easily than before. He has some swallowing problems since the stroke. He does not have prior history of hyposmia, RBD or constipation. The mood changes started after the stroke. Of note, he has history of significant alcohol intake and continues to drink on a daily basis. He also has Dupuytren's contracture in the left hand. There is no family history of parkinsonism. On examination, there is significant spasticity in the left side, along with mild asymmetry of the left nasolabial fold, with increased reflexes throughout (except for ankles) and Galaviz sign in the left. Additionally, he has abnormal proprioception and vibratory sensation in the legs. No weakness was noted. His gait is wide based and with a spastic component on the left. I personally reviewed the MRI of the brain and cervical spine performed in April 2019. There is no evidence of cervical myelopathy and there are T2 hyperintensities in the subcortical and periventricular areas, with an area of diffusion restriction in the left elisha. History and examination are compatible with multifactorial gait disorder. The abnormal gait is likely a combination of ataxia secondary to alcoholic neuropathy and spasticity in the left side. Anatomically, the left side spasticity should be generated by the recent stroke in April, but based on the history I suspect it could have been the result of a prior ischemic insult. He has multiple areas of T2 hyperintensities that could represent the usha of previous vascular injuries. The presence of spasticity and Dypuytren's contracture in the left hand mimic bradykinesia in the exam and the changes in the maneuvers cannot be at this point attributed to parkinsonism. He has improved significantly with rehabilitation and it will be worthwhile to re-exam him in one year to assess whether more definitive signs of parkinsonism are noted. He does not wish to proceed with any additional treatment. We discussed botulinum toxin injection, but he opted not to do it. He would like to do physical therapy though. Moreover, I pointed out the findings related to the alcoholic neuropathy and recommended against daily drinking. Finally, we discussed the mood changes since the stroke and how he should discuss it with his new GP. Plan: - Referral to physical therapy for spasticity. - Can consider botulinum toxin injections in the legs for spasticity in the future. - Discuss with PCP about options to treat the mood. - Counseled to stop drinking. Potential medication side effects were discussed during the encounter. Acute respiratory failure with hypoxemia S/P TAVR (transcatheter aortic valve replacement ) Social History Tobacco Use Types Packs/Day Years Used Date Smoking Tobacco: Former Cigarettes Q uit: 1983 Smokeless Tobacco: Former Tobacco Cessation:Counseling Given: Not Answered Alcohol Use Standard Drinks/Week Comments Yes 14 (1 standard drink = 0.6 oz pu re alcohol) Vodka/gin/bourbon, daily AUDIT-C Answer Date Recorded Q1: How often do you have a drink containing alcohol? Never 12/12/2022 Q2: How many drinks containi ng alcohol do you have on a typical day when you are drinking? Patient does not drink Frequency of Binge Drinking Not on file 11/24 PHQ-2 Answer Date Recorded PHQ-2 Total Score (If total score is 3 or more points, staff should administer the PHQ-9) 0 05/12/2019 Personal Safety Answer Date Recorded Have you ever been in or are you currently in a harmful physical or emotional relationship or is someone making you feel afraid or unsafe? Denies 12/17/2022 Sex and Gender Information Value Date Recorded Sex Assigned at Not on file Legal Sex Male 3:10 AM INCINERATOR OPERATOR Gender Identity Not on file Sexual Orientation Not on file Occupation Industry Job Start Date Job End Date Retired Not on file Not on file Not on file Last Filed Vital Signs Vital Sign Reading Time Taken Comments Blood Pressure 82/54 01/20/2024 12:56 PM INCINERATOR OPERATOR Pulse 58 01/20/2024 12:56 PM INCINERATOR OPERATOR Temperature 36.2 ??C (97.2 ??F) 12/17/2022 1 2:40 PM CDT Respiratory Rate 21 12/17/2022 2:05 PM CDT Oxygen Saturation 92% 01/20/2024 12: 56 PM INCINERATOR OPERATOR Inhaled Oxygen Concentration - - Weight 78.9 kg (173 lb 14.4 oz) 024 12:56 PM INCINERATOR OPERATOR Height 182.9 cm (6') 01/20/2024 12:56 PM INCINERATOR OPERATOR Body Mass Index 23.59 01/20/2024 12:56 PM INCINERATOR OPERATOR Plan of Treatment Not on file Medical Devices Implanted Type Area Office Asst Device Identifier Shelf Expiration Date Model / Serial / Lot en-[employer] [id number] Solia S 53cm Steroid Elute Bipolar Active Fixation Endocardial - [id number] - [id number] Implanted:Qty: 1 on 01/27/2021 by Sandra Graham MD at [facility] en-[employer] 11/22/2022 [id number] / [id number] / [employer] [id number] Solia S 45cm Bipolar Active Fixation Lead Pacing Steroid Eluting - [id number] - [id number] Implanted:Qty: 1 on 01/27/2021 by Sandra Graham MD at [facility] [employer] 11/22/2022 [id number] / [id number] / [employer] Inc [id number] Edrussell Promri 34t13c7.5mm Dual Chamber Rate Adaptive Unipolar Bipolar - [id number] - [id number] Implanted:Qty: 1 on 01/27/2021 by Sandra Garham MD at [facility] [employer] 05/23/2022 [id number] / [id number] / Perclose 6fr Vascular Closure - [id number] Implanted:Qty: 1 on 04/25/2021 by Rafael Pineda MD at [facility] [employer] 12/23/2022 [id number] / / [id number] Perclose 6fr Vascular Closure - [id number] Implanted:Qty: 1 on 04/25/2021 by Rafael Pineda MD at [facility] [employer] 12/23/2022 [id number] / / [id number] Med[employer]onic Inc Evproplus-34us Valve 34mm Aortic Evolut Pro+ - [id number] - [id number] Implanted:Qty: 1 on 04/25/2021 by Rafael Pineda MD at [facility] [employer] 01/31/2022 EVPROPLUS-3 4US / [id number] / Procedures Procedure Name Priority Date/Time Associated Diagnosis Comments CARDIOLOGY DOCUMENT SCAN Routine 03/08/2024 7:27 AM INCINERATOR OPERATOR from Last 3 Months Results * Cardiology Document Scan (03/08/2024 7:27 AM INCINERATOR OPERATOR) Anatomical Region Laterality Modality Other us Ripa Shamar Camacho MD CV CARDIAC SERVICES PRO CEDURES Final Result from Last 3 Months Insurance MEDICARE SOLUTIONS MEDICARE MEDICARE SOLUTIONS Advance Directives For more information, please contact: [phone] * Full Code (Latest Code Status on File) Date Activated Date Inactivated Comments 02/01/2021 4:48 PM 02/12/2021 4:01 PM * Full Code Date Activated Date Inactivated Comments 01/25/2021 6:22 PM 02/01/2021 4:44 PM * Full Code Date Activated Date Inactivated Comments 05/12/2019 8:58 PM 05/17/2019 2:30 PM Care Teams Exhibition Organiser Relationship Specialty Start Date End Date Georgiana Tripp DO PCP - General Family Medicine 03/20/21
--- OUTSIDE RECORDS SUMMARY | 2024-03-18 03:28 | XMS_ITS | Encounter Summary ---
Author Organization [facility] Address [address] [facility] [place] [address] Care Team Providers Care Supervisor Cooler Service Name Role Phone Unknown, Provider Primary Care Provider Unavaila ble Encounter Details Date Type Department Care Team (Late st Contact Info) Description 03/20/2022 Lab Requisition [facility] Care DermPath Lab [address] [facility] [place] [id number] Tito Benito MD [address] [place] [address] Social History Tobacco Use Types Packs/Day Years Used Date Smoking Tobacco: Never Assessed Sex and Gender Information Value Date Recorded Sex Assigned at Not on file Gender Identity Not on file Sexual Orientation Not on file documented as of this encounter Plan of Treatment Not on file documented as of this encounter Procedures Procedure Name Priority Date/Time Associated Diagnosis Comments DERMATOPATHOLOGY Routine 03/19/2022 12:0 0 AM SHEET METAL OPERATOR documented in this encounter Results * DERMATOPATHOLOGY (03/19/2022 12:00 AM SHEET METAL OPERATOR) Case Report Dermatopathology Report ? Case: [id number] ? Authorizing Provider: ??Tito Benito MD ?Collected: ? 03/19/2022 12:00 AM ? Ordering Location: ? [facility] ?Received: ?03/20/2022 01:28 PM ? Pathologist: ? Debbie Donaldson MD ? Specimen: ?Skin, right ant distal thigh ? 3 4:37 PM [facility] DERMATOPATHOLOGY LABORATORY Final Diagnosis Specimen A. 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 Check Margins. 3 4:37 PM [facility] DERMATOPATHOLOGY LABORATORY Gross Description Specimen A: Received is one formalin filled container labeled with the patients name and designated right ant distal thigh. The specimen consists of a shave removal measuring [id number] mm. Jar 0. 3 4:37 PM [facility] DERMATOPATHOLOGY LABORATORY Microscopic Description Specimen A. SKIN, right ant distal thigh: There are nests of squamous epithelial cells which arise from the epidermis and extend into the dermis. The nests have only focal central keratinization and rare horn oriana formation. This lesion is not present at the sampled margin of the specimen. 3 4:37 PM [facility] DERMATOPATHOLOGY LABORATORY Disclaimer An external and internal positive and negative controls are appropriate for the histochemical, immunohistochemical and immunofluorescence stain(s) in this case (if any), except where stated explicitly. The performance characteristics of the stain(s) cited in this report were developed and its performance characteristic determined by the Dermatopathology Laboratory at [facility], directed by Dr. Preeti Marques. These tests need not be, and therefore are not, approved by the [place] Food and Drug Administration. The tests are used for clinical purposes. Billing Codes Specimen Charges Stain Charges 20151 1 3 4:37 PM SHEET METAL OPERATOR DERMATOPATHOLOGY LABORATORY Embedded Images 3 4:37 PM SHEET METAL OPERATOR DERMATOPATHOLOGY LABORATORY Pathology/Cytolog y TISSUE SPECIMEN FROM SKIN / Unknown 03/19/2022 03/20/2022 1:28 PM SHEET METAL OPERATOR Tito eBnito MD LAB - PATHOLOGY/CYTO LOGY ORDERABLES DERMATOPATHOLOGY LABORATORY [facility] - Department of Dermatology [facility] Medicine [address] [place] [address], [address] [phone] documented in this encounter Visit Diagnoses Not on filedocumented in this encounter Care Teams Supervisor Cooler Service Relationship Specialty Start Date End Date Unknown, Provider PCP - General 07/09/17 documented as of this encounter
--- OUTSIDE RECORDS SUMMARY | 2024-03-18 03:28 | XMS_ITS | Encounter Summary ---
Author Organization [facility] Health Address [address] [facility] [place] [address] Care Team Providers Care Inside Sales Recruiter Name Role Phone Unknown, Provider Primary Care Provider Unavaila ble Encounter Details Date Type Department Care Team (Late st Contact Info) Description 10/08/2022 Lab Requisition [facility] - DermPath Lab [address] [facility] [place] [phone] Tito Benito MD [address] [place] [address] Social History Tobacco Use Types [...] Priority Date/Time Associated Diagnosis Comments DERMATOPATHOLOGY Routine 10/07/2022 12:0 0 AM CDT documented in this encounter Results * DERMATOPATHOLOGY (10/07/2022 12:00 AM CDT) Case Report Dermatopathology Report ? Case: [id number] ? Authorizing Provider: ??Tito Benito MD ?Collected: ? 10/07/2022 12:00 AM ? Ordering Location: ? [facility] DermPath Lab ? Received: ?10/08/2022 01:54 PM ? Pathologist: ? Debbie Donaldson MD ? Specimen: ?Skin, right distal lat thigh ? 3 3:43 PM CDT DERMATOPATHOLOGY LABORATORY Final Diagnosis Specimen A. 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 The specimen consists of a shave biopsy measuring [id number] mm. Jar 0. 3 3:43 PM CDT DERMATOPATHOLOGY LABORATORY Microscopic Description Specimen A. SKIN, right distal lat thigh: The epidermis is acanthotic and shows full thickness disorderly maturation of keratinocytes, mitoses at different levels, and dyskeratotic cells. There is overlying parakeratosis and hyperkeratosis. Focal clear cell features are present. 3 3:43 PM CDT DERMATOPATHOLOGY LABORATORY Disclaimer An external and internal positive and negative controls are appropriate for the histochemical, immunohistochemical and immunofluorescence stain(s) in this case (if any), except where stated explicitly. The performance characteristics of the stain(s) cited in this report were developed and its performance characteristic determined by the Dermatopathology Laboratory at [facility], directed by Dr. Preeti Marques. These tests need not be, and therefore are not, approved by the [place] Food and Drug Administration. The tests are used for clinical purposes. Billing Codes Specimen Charges Stain Charges 97979 1 3 3:43 PM CDT DERMATOPATHOLOGY LABORATORY Embedded Images 3 3:43 PM CDT DERMATOPATHOLOGY LABORATORY Pathology/Cytolog y TISSUE SPECIMEN FROM SKIN / Unknown 10/07/2022 10/08/2022 1:54 PM CDT Tito Benito MD LAB - PATHOLOGY/CYTO LOGY ORDERABLES DERMATOPATHOLOGY LABORATORY [facility] - Department of Dermatology [facility] Medicine [address] [place] [address], [address] [phone] documented in this encounter Visit Diagnoses Not on filedocumented in this encounter Care Teams Inside Sales Recruiter Relationship Specialty Start Date End Date Unknown, Provider PCP - General 07/09/17 documented as of this encounter
--- OUTSIDE RECORDS SUMMARY | 2024-03-18 03:28 | XMS_ITS | Encounter Summary ---
Author Organization [facility] Address [address] [place] [address] Care Team Providers Care Art Installer Name Role Phone Unknown, Provider Primary Care Provider Unavaila ble Encounter Details Date Type Department Care Team (Late st Contact Info) Description 03/18/2019 Lab Requisition [facility] [address] [facility], [place] [id number] Tito Benito MD [address] [place] [address] Social History Tobacco Use Types [...] Priority Date/Time Associated Diagnosis Comments DERMATOPATHOLOGY Routine 03/16/2019 12:0 0 AM IMMIGRATION COORDINATOR documented in this encounter Results * DERMATOPATHOLOGY (03/16/2019 12:00 AM IMMIGRATION COORDINATOR) Case Report Dermatopathology Report ? Case: [id number] ? Authorizing Provider: ??Tito Benito MD ?Collected: ? 03/16/2019 12:00 AM ? Ordering Location: ? [facility] ?Received: ?03/18/2019 07:36 AM ? Pathologist: ? Irena Villagran MD ? Specimen: ?Skin, left advent lateral to brow ? 0 1:40 PM [facility] Final Diagnosis Specimen A. SKIN, left advent lateral to brow: BASAL CELL CARCINOMA, NODULAR TYPE (C44.319) 0 1:40 PM [facility] Clinical History R/O BCC. 0 1:40 PM [facility] Gross Description Specimen A: Received is one formalin filled container labeled with the patient's name and designated left advent lateral to brow. The specimen consists of a shave biopsy measuring [id number]. Jar 0. 0 1:40 PM [facility] Microscopic Description Specimen A. SKIN, left advent lateral to brow: Within the dermis there are aggregates of basaloid cells with a high nuclear to cytoplasmic ratio and peripheral palisading. 0 1:40 PM [facility] Disclaimer An external and internal positive and negative controls are appropriate for the histochemical, immunohistochemical and immunofluorescence stain(s) in this case (if any), except where stated explicitly. The performance characteristics of the stain(s) cited in this report were developed and its performance characteristic determined by the Dermatopathology Laboratory at [facility], directed by Dr. Preeti Marques. These tests need not be, and therefore are not, approved by the [place] Food and Drug Administration. The tests are used for clinical purposes. Billing Codes Specimen Charges Stain Charges 93359 1 0 1:40 PM IMMIGRATION COORDINATOR DERMATOPATHOLOGY LABORATORY Embedded Images 0 1:40 PM IMMIGRATION COORDINATOR DERMATOPATHOLOGY LABORATORY Pathology/Cytolog y TISSUE SPECIMEN FROM SKIN / Unknown 03/16/2019 03/18/2019 7:36 AM IMMIGRATION COORDINATOR Tito Benito MD LAB - PATHOLOGY/CYTO LOGY ORDERABLES DERMATOPATHOLOGY LABORATORY [facility] - Department of Dermatology [address] [place] [address], 5th Floor Lab [address] [phone] documented in this encounter Visit Diagnoses Not on filedocumented in this encounter Care Teams Art Installer Relationship Specialty Start Date End Date Unknown, Provider PCP - General 07/09/17 documented as of this encounter
--- OUTSIDE RECORDS SUMMARY | 2024-03-18 03:28 | XMS_ITS | Clinical Summary ---
Author Organization [facility] Address [address] [place] [address] Care Team Providers Care Poultry Hatchery Supervisor Name Role Phone KiananiecyGeorgiana moncada Primary Care Provider [phone]- [phone] Allergies No known active allergies Medications folic [...] 01/27/2021-Dr Cast. Patient prefers to follow with [facility]. Lesion of bladder 12/08/2022 Nonrheumatic aortic valve stenosis 04/25/2021 Aortic stenosis 02/01/2021 Bradycardia 01/25/2021 Overview (01/26/2021): Added automatically from request for surgery [id number] Cardiomyopathy 01/25/2021 Overview (01/29/2021): Added automatically from request for surgery [id number] Pre-operative cardiovascular examination, valvular heart disease 01/25/2021 Overview (01/29/2021): Added automatically from request for surgery [id number] Polyneuropathy, alcoholic 02/22/2020 Spasticity 02/22/2020 Cerebrovascular accident [...] Neurology. Assessment & Plan (02/22/2020 4:20 PM AUTO TUNE UP MECHANIC): Mr. Eren Kulkarni is a 79 y.o. male, who presents for evaluation of possible PD. His thinks that at least since 2019 she has asked him to hand picker his left foot when walking. He [...] S/P TAVR (transcatheter aortic valve replacement ) Encounters Date Type Department Care Team Description 03/17/2024 Telephone [facility] Cardiology [address] [place] [address] [place] [phone] Rafael Pineda MD 03/16/2024 Orders Only [facility] Cardiology [address] [place] [address] [place] [phone] Roly Camacho MD 03/08/2024 Telephone [facility] Cardiology [address] [place] [address] [place] [phone] Rafael Pineda MD 03/07/2024 Telephone [facility] Cardiology [address] [facility] 8th [place] [address] [place] [phone] La Patel NP 01/20/2024 1:00 PM AUTO TUNE UP MECHANIC Office Visit [facility] Cardiology [address] [place] [address] [place] [phone] Rafael Pineda MD S/P TAVR (transcatheter aortic valve replacement) (Primary Dx); PAF (paroxysmal atrial fibrillation) (CMS/HCC) ([facility]); Chronic anticoagulation; CHB (complete heart block) (CMS/HCC) ([facility]); Pacemaker; History of DVT (deep vein thrombosis); History of pulmonary embolism from Last 3 Months Surgical History Surgery Date Site/Laterality Comments INSERT / REPLACE / REMOVE PACEMAKER [employer] CATARACT EXTRACTION Left ANOMALOUS PULMONARY VENOUS RETURN REPAIR, TOTAL Medical History Medical History Date Comments Coronary artery disease Aortic stenosis Atrial fibrillation (CMS/HCC) (HCC) PE (pulmonary thromboembolism) (CMS/HCC) (HCC) DVT (deep venous thrombosis) (CMS/HCC) (HCC) Cardiac arrest (HCC) Hyperlipidemia AAA (abdominal aortic aneurysm) (HCC) Infrarenal AAA Anemia GERD (gastroesophageal reflux disease) Myocardial infarction (HCC) Stroke (cerebrum) (HCC) 2019 Arthritis Cataract History of transfusion Family History Medical History Relation Name Comments No Known Problems Brother 1 No Known Problems Brother 2 No Known Problems Brother 3 Heart attack Father Cancer Mother Dementia Mother Heart disease Mother Cancer Sister No Known Problems Son 1 No Known Problems Son 2 Parkinsonism Neg Hx Tremor Neg Hx Relation Name Status Comments Brother 1 Alive Brother 2 Alive Brother 3 Alive Father Mother Sister Alive Son 1 Alive Son 2 Alive Social History Tobacco Use Types Packs/Day Years Used Date Smoking Tobacco: Former Cigarettes Q uit: 1984 Smokeless Tobacco: Former Tobacco Cessation:Counseling Given: Not [...] on file Legal Sex Male 3:10 AM AUTO TUNE UP MECHANIC Gender Identity Not on file Sexual Orientation Not on file Occupation Industry Job Start Date Job End Date Retired Not on file Not on file Not on file Obstetrics History Last Filed Vital Signs Vital Sign Reading Time Taken Comments Blood Pressure 82/54 01/20/2024 12:56 PM AUTO TUNE UP MECHANIC Pulse 58 01/20/2024 12:56 PM AUTO TUNE UP MECHANIC Temperature 36.2 ??C (97.2 ??F) 12/17/2022 1 2:40 PM CDT Respiratory Rate 21 12/17/2022 2:05 PM CDT Oxygen Saturation 92% 01/20/2024 12: 56 PM AUTO TUNE UP MECHANIC Inhaled Oxygen Concentration - - Weight 78.9 kg (173 lb 14.4 oz) 024 12:56 PM AUTO TUNE UP MECHANIC Height 182.9 cm (6') 01/20/2024 12:56 PM AUTO TUNE UP MECHANIC Body Mass Index 23.59 01/20/2024 12:56 PM AUTO TUNE UP MECHANIC Plan of Treatment Health Maintenance Due Date Last Done Comments Hepatitis B Screening 11/12/1958 Well Visit 65+ 2006 Depression Screening 05/11/2020 05/12/2019 Covid-19 Vaccine ( season) 2023 11/23/2020, 05/16/2020, 04/25/2020 Influenza Vaccine (#1) 2023 2, 12/25/2019, 11/22/2019 Fall Risk Assessment 12/18/2023 12/17/2022 DTaP/Tdap/Td Vaccine (2 - Td or Tdap) 04/02/203109/2021 Pneumococcal vaccine 65+ Completed 08/13/2022, 0209/2021 Zoster Vaccine Completed 11/12/2022, 08/13/2022 Medical Devices Implanted Type Area Log Truck Driver Device Identifier Shelf Expiration Date Model / Serial / Lot [employer] [id number] Solia S 53cm Steroid Elute Bipolar Active Fixation Endocardial - [id number] - [id number] Implanted:Qty: 1 on 01/27/2021 by Sandra Graham MD at [facility] [employer] 11/22/2022 [id number] / [id number] / [employer] [id number] Solia S 45cm Bipolar Active Fixation Lead Pacing Steroid Eluting - [id number] - [id number] Implanted:Qty: 1 on 01/27/2021 by Sandra Graham MD at [facility] [employer] 11/22/2022 [id number] / [id number] / [employer] [id number] Edora Promri 57e05c7.5mm Dual Chamber Rate Adaptive Unipolar Bipolar - [id number] - [id number] Implanted:Qty: 1 on 01/27/2021 by Sandra Graham MD at [facility] [employer] 05/23/2022 [id number] / [id number] / Perclose 6fr Vascular Closure - [id number] Implanted:Qty: 1 on 04/25/2021 by Rafael Pineda MD at [facility] [employer] 12/23/2022 [id number] / / [id number] Perclose 6fr Vascular Closure - [id number] Implanted:Qty: 1 on 04/25/2021 by Rafael Pineda MD at [facility] [employer] 12/23/2022 [id number] / / [id number] [employer] Evproplus-34us Valve 34mm Aortic Evolut Pro+ - [id number] - [id number] Implanted:Qty: 1 on 04/25/2021 by Rafael Pineda MD at [facility] [employer] 01/31/2022 EVPROPLUS-3 4US / [id number] / Procedures Procedure Name Priority Date/Time Associated Diagnosis Comments CARDIOLOGY DOCUMENT SCAN Routine 03/08/2024 7:27 AM AUTO TUNE UP MECHANIC from Last 3 Months Results * Cardiology Document Scan (03/08/2024 7:27 AM AUTO TUNE UP MECHANIC) Anatomical Region Laterality Modality Other [facility] Shamar Camacho MD CV CARDIAC SERVICES PRO CEDURES Final Result from Last [address] [place] [place] [address] MEDICARE SOLUTIONS MEDICARE MEDICARE SOLUTIONS Advance Directives For more information, please contact: [phone] * Full Code (Latest Code Status on File) Date Activated Date Inactivated Comments 02/01/2021 4:48 PM 02/12/2021 4:01 PM * Full Code Date Activated Date Inactivated Comments 01/25/2021 6:22 PM 02/01/2021 4:44 PM * Full Code Date Activated Date Inactivated Comments 05/12/2019 8:58 PM 05/17/2019 2:30 PM Care Teams Poultry Hatchery Supervisor Relationship Specialty Start Date End Date Georgiana Tripp DO PCP - General Family Medicine 03/20/21
--- OUTSIDE RECORDS SUMMARY | 2024-03-18 03:28 | XMS_ITS | CONTINUITY OF CARE DOCUMENT ---
Author Name victoriaclara mariela Address Unknown Organization [facility] Address [address] [place] [address] Phone [phone] Care Team Providers Care Secretary Office Clerk Name Role Phone Gladys RUSHING, Sandra Unavailable [phone] NEVA RUSHING, ZACHARY Unavailable [phone] VERNACE DO SRIKANTH Unavailable PROBLEMS Condition Status Date Provider Notes Hypotension active Erick Stewart Prostate cancer active Sandra Graham MD S/P Dual chamb PCM - Biotron ik ( MRI Safe) active Rox Holman Heart block active Taglenna Yadav Bradycardia, severe active Nadia Yadav Afib with RVR active Nadia Yadav Syncope active Taglenna Yadav DVT active Taglenna Yadav Cardiac arrest active Taglenna Yadav Aortic stenosis, severe active Nadia Yadav CAD active Nadia Yadav Frequent premature ventricular beats active Elizabeth Juarez NP Frequent unifocal PVCs active Sandra love MD Pulmonary embolism active Sandra Graham MD ENCOUNTERS Date Type Provider Location Encounter Diag nosis - In-person encounter Office Visit [facility] - [facility] Office Visit [facility] Frequent unifocal PVCsPulmonary embolism - In-person encounter Office Visit Sandra [facility] MD [facility] - In-person encounter Office Visit [facility] Frequent premature ventricular beats - In-person encounter Office Visit Sandra [facility] MD [facility] - In-person encounter Office Visit [facility] Heart blockBradycardia, severeAfib with RVRSyncopeDVTCardiac arrestAortic stenosis, severeCAD VITAL SIGNS Date Observation Value Provider Body Mass Index (Ratio) 23.87 kg/m2 Giancarlo b Terry blood pressure, cuff size regular Ke rri Gruenenfelder blood pressure, diastolic 70 mm[Hg] Ke rri Gruenenfelder blood pressure, systolic 122 mm[Hg] Damir ri Gruenenfelder oxygen saturation, oximetry 97 % Gayla Gruenenfelder respiratory rate E&M 12 /min Gayla whittingtonnfkhurram pulse rate 85 /min Gayla Clifton lder weight E&M 176 [lb_av] Gayla Elodia lder height E&M 72 [in_i] Gayla Clifton er Body Mass Index (Ratio) 23.73 kg/m2 Alex caballero [place] blood pressure, cuff size regular Ke rri Gruenenfelder blood pressure, diastolic 70 mm[Hg] Ke rri Gruenenfelder blood pressure, systolic 106 mm[Hg] Damir ri Gruenenfelder oxygen saturation, oximetry 99 % Gayla Grjuancarlosnenfelder respiratory rate E&M 12 /min Gayla G ruenenfelder pulse rate 89 /min Gayla Gruenenfe lder weight E&M 175 [lb_av] Gayla Gruenenfe lder height E&M 72 [in_i] Gayla Gruenenfe lder Body Mass Index (Ratio) 24.00 kg/m2 Linda Haji blood pressure, cuff size large Ke rri Gruenenfelder blood pressure, diastolic 80 mm[Hg] Ke rri Gruenenfelder blood pressure, systolic 140 mm[Hg] Ker ri Gruenenfelder oxygen saturation, oximetry 98 % Gayla Gruenenfelder respiratory rate E&M 14 /min Gayla G ruenenfelder pulse rate 73 /min Gayla Gruenenfe lder weight E&M 177 [lb_av] Gayla Gruenenfe lder height E&M 72 [in_i] Gayla Gruenenfe lder Body Mass Index (Ratio) 23.73 kg/m2 Bentley Graham MD blood pressure, diastolic 61 mm[Hg] Ke rri Gruenenfelder blood pressure, systolic 120 mm[Hg] Ker ri Gruenenfelder blood pressure, cuff size large Ke rri Gruenenfelder oxygen saturation, oximetry 98 % Gayla Gruenenfelder respiratory rate E&M 14 /min Gayla G ruenenfelder pulse rate 74 /min Gayla Gruenenfe lder weight E&M 175 [lb_av] Gayla Gruenenfe lder height E&M 72 [in_i] Gayla Gruenenfe lder Body Mass Index (Ratio) 23.19 kg/m2 Giancarlo leon Nacht blood pressure, diastolic 68 mm[Hg] Li n[facility]Log[facility] blood pressure, systolic 112 mm[Hg] Ana [facility]Logic blood pressure, cuff size large Ke rri Gruenenfelder blood pressure, diastolic 68 mm[Hg] Ke rri Gruenenfelder blood pressure, systolic 112 mm[Hg] Damir ri Gruenenfelder oxygen saturation, oximetry 98 % Gayla Gruenenfelder respiratory rate E&M 14 /min Gayla G ruenenfelder pulse rate 87 /min Gayla Gruenenfe lder weight E&M 171 [lb_av] Gayla Grjuancarlosnenfe lder height E&M 72 [in_i] Gayla Grquincynfe er Body Mass Index (Ratio) 22.10 kg/m2 [place] blood pressure, cuff size large Ke rri Gruenenfelder blood pressure, diastolic 70 mm[Hg] Ke rri Gruenenfelder blood pressure, systolic 114 mm[Hg] Damir ri Gruenenfelder oxygen saturation, oximetry 99 % Gayla Grjuancarlosnenfelder respiratory rate E&M 14 /min Gayla G ruenenfelder pulse rate 69 /min Gayla Gruenenfe lder weight E&M 163 [lb_av] Gayla Gruenenfe lder height E&M 72 [in_i] Gayla Gruenenfe lder ALLERGIES No Known Drug Allergies RESULTS Date Observation Value Provider Reference Range Interpretation Location alanine aminotransferase (SGPT), serum 22 1/L [facility] 9-46 Normal aspartate aminotransferase (SGOT), serum 30 1/L [facility] 10-35 Normal alkaline phosphatase, serum 82 1/L [facility] 35-144 Normal bilirubin, serum, total 1.0 mg/dL [facility] 0.2-1.2 Normal albumin/globulin ratio, serum 2.0 (calc) [facility] 1.0-2.5 Normal globulins, serum, total 2.1 G/DL (CALC) [facility] 1.9-3.7 Normal albumin, serum 4.3 g/dL [facility] 3.6-5.1 Normal protein, total, serum 6.4 g/dL [facility] 6.1-8.1 Normal calcium, serum 10.0 mg/dL [facility] 8.6-10.3 Normal carbon dioxide, venous blood 29 mmol/L [facility] 20-32 Normal chloride, serum 105 mmol/L [facility] 98-110 Normal potassium, serum 4.5 mmol/L [facility] 3.5-5.3 Normal sodium, serum 141 mmol/L [facility] 135-146 Normal urea nitrogen/creatinine ratio, serum NOT APPLICABLE (calc) [facility] 6-22 creatinine, serum 1.05 mg/dL [facility] 0.70-1.28 Normal urea nitrogen, blood 16 mg/dL [facility] 7-25 Normal blood glucose, random 99 mg/dL [facility] 65-99 Normal magnesium, serum 2.2 mg/dL [facility] 1.5-2.5 Normal HISTORY OF MEDICATION USE Medication Status Instructions Dates Provider Indications Com ments diltiazem HCl 60 mg tablet active Take 1 tablet by mouth twice a day 1 Sandra Graham MD Eliquis 5 mg tablet active 1 tablet by mouth twice a day should let Dr. Pineda know that ELIQUIS is needed life long 1 Sandra Graham MD magnesium oxide 400 mg magnesium tablet active Take 1 tablet by mouth once a day 1 Lore Haji atorvastatin 80 mg tablet active TAKE 1 TABLET BY MOUTH EVERY DAY Elizabeth Juarez NP carvedilol 3.125 mg tablet active TAKE 1 TABLET BY MOUTH TWICE DAILY Elizabeth Juarez NP clopidogrel 75 mg tablet active TAKE 1 TABLET BY MOUTH EVERY DAY Elizabeth Juarez NP Eliquis 5 mg tablet completed Take 1 tablet by mouth twice a day TAKE 1 TABLET TWICE A DAY - 7 Sandra Graham MD Entresto 24-26 mg tablet active Take 1 tablet by mouth twice a day Elizabeth Juarez NP furosemide 20 mg tablet active TAKE 1 TABLET BY MOUTH EVERY DAY Elizabeth Juarez NP famotidine 10 mg tablet active Take 1 tablet by mouth once a day NEEDED Elizabeth Juarez NP folic acid 1 mg tablet active TAKE 1 TABLET BY MOUTH DAILY Elizabeth Juarez NP Vitamin B-1 50 mg tablet active Take 1 tablet by mouth once a day Elizabeth Juarez NP multivitamin with minerals unspecified unspecified active Take 1 1 tab daily Elizabeth Juarez NP SOCIAL HISTORY Date Observation Value Provider smoking, year quit 1982 Elizabeth Juarez WAITER/WAITRESS TAKE OUT number of years as a smoker 25 a Elizabeth Juarez NP smoking history, tot al pack/day 1 ppd Elizabeth Juarez NP cigarette use yes Elizabeth fraire WAITER/WAITRESS TAKE OUT smoking status Former smoker Elizabeth ibanez WAITER/WAITRESS TAKE OUT Exercise counseling Yes Elizabeth Juarez NP social history E&M S moking History: Marcy laura is a former smoker. Lore Haji social history reviewed E&M revi ewed - no changes required Lore Haji smoking, year quit 1982 Gayla piedra number of years as a smoker 25 a Gayla Valdes smoking history, tot al pack/day 1 ppd Gayla Basilioer cigarette use yes Gayla paulson smoking status Former smoker Gayla daselder smoking, year quit 1982 Gayla piedra number of years as a smoker 25 a Gayla Valdes smoking history, tot al pack/day 1 ppd Gayla Basilioer cigarette use yes Gayla Marmolejo elder smoking status Former smoker Gayla daselder social history reviewed E&M revi ewed - no changes required Elizabeth Juarez NP smoking, year quit 1982 Gayla hernandesjuno number of years as a smoker 25 a Gayla Valdes smoking history, tot al pack/day 1 ppd Gayal Valdes cigarette use yes Gayla Marmolejo elder smoking status Former smoker Gayla recioer social history E&M S moking History: Marcy laura is a former smoker. Nadia Yadav social history reviewed E&M revi ewed - no changes required Nadia Yadav number of years as a smoker 25 a Gayla Valdes smoking history, tot al pack/day 1 ppd Gayla Valdes smoking, year quit 1982 Gayla hernandesjuno cigarette use yes Gayla Marmolejo [facility] smoking status Former smoker Gayla daseldjuno FUNCTIONAL STATUS Date Observation Value Provider HRA, CV Assess/Plan, Angina (inactive) Management Plan continue current therapy Elizabeth Juarez NP HRA, CV Assess/Plan, Angina (inactive) Management Plan continue current therapy David Lou HRA, CV Assess/Plan, Angina (inactive) Management Plan continue current therapy Lore Haji HRA, CV Assess/Plan, Angina (inactive) Management Plan continue current therapy Elizabeth Juarez NP HRA, CV Assess/Plan, Angina (inactive) Management Plan continue current therapy Elizabeth Juarez NP INSURANCE PROVIDERS Payer name Policy type / Coverage type Xochitl red democrat ID [facility] MEDICARE ADVANTAGE (PPO) Other [id number] ADVANCE DIRECTIVES Name Date DISCUSSED - NO DECISION MADE TREATMENT PLAN Date Name Performer [id number],S, H is updated medication list for this problem includes: Carvedilol 3.125 Mg Tablet (Carvedilol) ..... Take 1 tablet by mouth twice daily Clopidogrel 75 Mg Tablet (Clopidogrel) ..... Take 1 tablet by mouth every day Lore Haji [id number],S, H is updated medication list for this problem includes: Carvedilol 3.125 Mg Tablet (Carvedilol) ..... Take 1 tablet by mouth twice daily Clopidogrel 75 Mg Tablet (Clopidogrel) ..... Take 1 tablet by mouth every day Lore Haji [id number],B, Lore Haji [id number],B,i mproved post pacemaker H is updated medication list for this problem includes: Carvedilol 3.125 Mg Tablet (Carvedilol) ..... Take 1 tablet by mouth twice daily Clopidogrel 75 Mg Tablet (Clopidogrel) ..... 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 Take 1 tablet by mouth twice daily Clopidogrel 75 Mg Tablet (Clopidogrel) ..... Take 1 tablet by mouth every day Sandra Graham MD [id number],C,d evice check 08/2021 Presenting EGM: Ap Vs. Battery status normal . Lead trends appear normal. HF trends normal. at/af 1%, AT x5 (AF) l ongest 19min . Appropriate device function. His updated medication list for this problem includes: Carvedilol 3.125 Mg Tablet (Carvedilol) ..... Take 1 tablet by mouth twice daily Clopidogrel 75 Mg Tablet (Clopidogrel) ..... Take 1 tablet by mouth every day Eliquis 5mg BID Sandra Graham MD [id number],S, c ardiac cath at [facility] showing mild narrowing in left main with shelf-like calcification in the proximal segment; mild plaque proximal LAD and major diagonal branch; 30-40% stenosis proximal-mid LCX. Patent but tortuous bilateral iliac arteries. Ectatic distal abdominal aorta. Severe calcific aortic stenosis, SIRISHA 0.8 cm2 on CARMEN by planimetry. 01/2021 His updated medication list for this problem includes: Carvedilol 3.125 Mg Tablet (Carvedilol) ..... Take 1 tablet by mouth twice daily Clopidogrel 75 Mg Tablet (Clopidogrel) ..... Take 1 tablet by mouth every day Sandra Graham MD [id number],C,d evice check 08/2021 Presenting EGM: Ap Vs. Battery status normal . Lead trends appear normal. HF trends normal. at/af 1%, AT x5 (AF) l ongest 19min . Appropriate device function. His updated medication list for this problem includes: Carvedilol 3.125 Mg Tablet (Carvedilol) ..... Take 1 tablet by mouth twice daily Clopidogrel 75 Mg Tablet (Clopidogrel) ..... 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 Patent but tortuous bilateral iliac arteries. Ectatic distal abdominal aorta. Severe calcific aortic stenosis, SIRISHA 0.8 cm2 on CARMEN by planimetry. 01/2021 Elizabeth Juarez WAITER/WAITRESS TAKE OUT [id number],C, S /p successful dual chamber PPM 01/27/21, sxs have improved markedly, he has been feeling well, incision site was redressed and is healing well. Elizabeth Juarez WAITER/WAITRESS TAKE OUT [id number],C,d evice interrogation today 1 episode of AFIB 04/25/21 which was the day of His TAVR. no other episodes. normal function. His updated medication list for this problem includes: Carvedilol 3.125 Mg Tablet (Carvedilol) ..... Take 1 tablet by mouth twice daily Clopidogrel 75 Mg Tablet (Clopidogrel) ..... Take 1 tablet by mouth every day eliquis 5mg BID Elizabeth Juarez WAITER/WAITRESS TAKE OUT [id number],C, c ardiac cath at [facility] showing mild narrowing in left main with shelf-like calcification in the proximal segment; mild plaque proximal LAD and major diagonal branch; 30-40% stenosis proximal-mid LCX. Patent but tortuous bilateral iliac arteries. Ectatic distal abdominal aorta. Severe calcific aortic stenosis, SIRISHA 0.8 cm2 on today's CARMEN by planimetry. 01/2021 Elizabeth Juarez WAITER/WAITRESS TAKE OUT [id number],C,s /p TAVR 04/25/21 [facility] showed Severe calcific aortic stenosis, SIRISHA 0.8 cm2 01/2021 Elizabeth Juarez WAITER/WAITRESS TAKE OUT [id number],C,c ardiac cath at [facility] showing mild narrowing in left main with shelf-like calcification in the proximal segment; mild plaque proximal LAD and major diagonal branch; 30-40% stenosis proximal-mid LCX. Patent but tortuous bilateral iliac arteries. Ectatic distal abdominal aorta. Severe calcific aortic stenosis, SIRISHA 0.8 cm2 on today's CARMEN by planimetry. 01/2021 Miguel Angel Haji [id number],C,S /p successful dual chamber PPM 01/27/21, sxs have improved markedly, he has been feeling well, incision site was redressed and is healing well. Miguel Angel Haji [id number],C,S /p successful dual chamber PPM 01/27/21, sxs have improved markedly, he has been feeling well, incision site was redressed and is healing well. Miguel Angel Haji [id number],S, Miguel Angel [place] i [id number],C,U ndergoing TAVR work up at [facility], [facility] showed Severe calcific aortic stenosis, SIRISHA 0.8 cm2 01/2021 Miguel Angel Haji Telehealth: deena ashton diltiazem, coreg, eliquis if continues to have AFIB, will consider Tikosyn loading. His updated medication list for this problem includes: Carvedilol 3.125 Mg Tablet (Carvedilol) ..... Take 1 tablet by mouth twice daily Clopidogrel 75 Mg Tablet (Clopidogrel) ..... Take 1 tablet by mouth every day Sandra Graham MD Telehealth: Rosendo moncada had an episode of hypotension without syncope. Will continue current regimen. Extensive education done about the importance of staying well hydrated and eating three meals per day. Erick Stewart Telehealth: deena ashton diltiazem, coreg, eliquis if continues to have AFIB, will consider Tikosyn loading. Erick Stewart Electrophysiology:s/p PPM Rickie Juarez NP Electrophysiology:on last remote check 09/22, 63% AF burden in last 24 hrs. multaq was ordered, but was not affordable, so it was switched to diltiazem 60mg BID if continues to have AFIB, will consider Tikosyn loading. EKG paced, underlying SR today Elizabeth Juarez NP Electrophysiology:on eliquis. Raad Juarez NP Telehealth Sandra vasquez MD Telehealth Sandra vasquez MD Telehealth:was start ed on Eliquis by Dr. Pineda on 08/29/2023 pedro tarelliott Multaq 400 mg PO bid H is updated medication list for this problem includes: Carvedilol 3.125 Mg Tablet (Carvedilol) ..... Take 1 tablet by mouth twice daily Clopidogrel 75 Mg Tablet (Clopidogrel) ..... 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 it was stopped due to bleeding may benefit from IVC filter placement Sandra Graham MD Electrophysiology: H is updated medication list for this problem includes: Carvedilol 3.125 Mg Tablet (Carvedilol) ..... Take 1 tablet by mouth twice daily Clopidogrel 75 Mg Tablet (Clopidogrel) ..... Take 1 tablet by mouth every day Sandra Graham MD Electrophysiology: H is updated medication list for this problem includes: Carvedilol 3.125 Mg Tablet (Carvedilol) ..... Take 1 tablet by mouth twice daily Clopidogrel 75 Mg Tablet (Clopidogrel) ..... Take 1 tablet by mouth every day Orders: 9 9215 HIGH 40-54min ([id number]) Sandra Graham MD Electrophysiology Sandra willis MD Electrophysiology: H is updated medication list for this problem includes: Carvedilol 3.125 Mg Tablet (Carvedilol) ..... Take 1 tablet by mouth twice daily Clopidogrel 75 Mg Tablet (Clopidogrel) ..... Take 1 tablet by mouth every day Lore Haji Electrophysiology: H is updated medication list for this problem includes: Carvedilol 3.125 Mg Tablet (Carvedilol) ..... Take 1 tablet by mouth twice daily Clopidogrel 75 Mg Tablet (Clopidogrel) ..... Take 1 tablet by mouth every day Lore Haji Electrophysiology Lore Hill i Electrophysiology:im proved post pacemaker H is updated medication list for this problem includes: Carvedilol 3.125 Mg Tablet (Carvedilol) ..... Take 1 tablet by mouth twice daily Clopidogrel 75 Mg Tablet (Clopidogrel) ..... Take 1 tablet by mouth every day Sandra Graham MD Electrophysiology: s /p TAVR 04/25/21 [facility] showed Severe calcific aortic stenosis, SIRISHA 0.8 cm2 01/2021 Sandra Graham MD Electrophysiology: H is updated medication list for this problem includes: Carvedilol 3.125 Mg Tablet (Carvedilol) ..... Take 1 tablet by mouth twice daily Clopidogrel 75 Mg Tablet (Clopidogrel) ..... Take 1 tablet by mouth every day Sandra Graham MD Electrophysiology:de vice check 08/2021 Presenting EGM: Ap Vs. Battery status normal . Lead trends appear normal. HF trends normal. at/af 1%, AT x5 (AF) l ongest 19min . Appropriate device function. H is updated medication list for this problem includes: Carvedilol 3.125 Mg Tablet (Carvedilol) ..... Take 1 tablet by mouth twice daily Clopidogrel 75 Mg Tablet (Clopidogrel) ..... Take 1 tablet by mouth every day Eliquis 5mg BID Sandra Graham MD Electrophysiology: c ardiac cath at [facility] showing mild narrowing in left main with shelf-like calcification in the proximal segment; mild plaque proximal LAD and major diagonal branch; 30-40% stenosis proximal-mid LCX. Patent but tortuous bilateral iliac arteries. Ectatic distal abdominal aorta. Severe calcific aortic stenosis, SIRISHA 0.8 cm2 on CARMEN by planimetry. 01/2021 His updated medication list for this problem includes: Carvedilol 3.125 Mg Tablet (Carvedilol) ..... Take 1 tablet by mouth twice daily Clopidogrel 75 Mg Tablet (Clopidogrel) ..... Take 1 tablet by mouth every day Sandra Graham MD Electrophysiology:de vice check 08/2021 Presenting EGM: Ap Vs. Battery status normal . Lead trends appear normal. HF trends normal. at/af 1%, AT x5 (AF) l ongest 19min . Appropriate device function. H is updated medication list for this problem includes: Carvedilol 3.125 Mg Tablet (Carvedilol) ..... Take 1 tablet by mouth twice daily Clopidogrel 75 Mg Tablet (Clopidogrel) ..... Take 1 tablet by mouth every day Eliquis 5mg BID Elizabeth Juarez NP Electrophysiology: s /p TAVR 04/25/21 [facility] showed Severe calcific aortic stenosis, SIRISHA 0.8 cm2 01/2021 Elizabeth Juarez NP Electrophysiology: c ardiac cath at [facility] showing mild narrowing in left main with shelf-like calcification in the proximal segment; mild plaque proximal LAD and major diagonal branch; 30-40% stenosis proximal-mid LCX. Patent but tortuous bilateral iliac arteries. Ectatic distal abdominal aorta. Severe calcific aortic stenosis, SIRISHA 0.8 cm2 on CARMEN by planimetry. 01/2021 Elizabeth Juarez NP Electrophysiology: S /p successful dual chamber PPM 01/27/21, sxs have improved markedly, he has been feeling well, incision site was redressed and is healing well. Elizabeth Juarez NP Electrophysiology:de vice interrogation today 1 episode of AFIB 04/25/21 which was the day of His TAVR. no other episodes. normal function. His updated medication list for this problem includes: Carvedilol 3.125 Mg Tablet (Carvedilol) ..... Take 1 tablet by mouth twice daily Clopidogrel 75 Mg Tablet (Clopidogrel) ..... Take 1 tablet by mouth every day eliquis 5mg BID Elizabeth Juarez NP Electrophysiology: c ardiac cath at [facility] showing mild narrowing in left main with shelf-like calcification in the proximal segment; mild plaque proximal LAD and major diagonal branch; 30-40% stenosis proximal-mid LCX. Patent but tortuous bilateral iliac arteries. Ectatic distal abdominal aorta. Severe calcific aortic stenosis, SIRISHA 0.8 cm2 on today's CARMEN by planimetry. 01/2021 Elizabeth Juarez WAITER/WAITRESS TAKE OUT Electrophysiology:s/ p TAVR 04/25/21 [facility] showed Severe calcific aortic stenosis, SIRISHA 0.8 cm2 01/2021 Elizabeth Juarez WAITER/WAITRESS TAKE OUT Electrophysiology:ca rdiac cath at [facility] showing mild narrowing in left main with shelf-like calcification in the proximal segment; mild plaque proximal LAD and major diagonal branch; 30-40% stenosis proximal-mid LCX. Patent but tortuous bilateral iliac arteries. Ectatic distal abdominal aorta. Severe calcific aortic stenosis, SIRISHA 0.8 cm2 on today's CAR[facility] by planimetry. 01/2021 Miguel Angel Haji Electrophysiology:S/ p successful dual chamber PPM 01/27/21, sxs have improved markedly, he has been feeling well, incision site was redressed and is healing well. Miguel Angel Haji Electrophysiology:S/ p successful dual chamber PPM 01/27/21, sxs have improved markedly, he has been feeling well, incision site was redressed and is healing well. Miguel Angel Haji Electrophysiology Miguel Angel Haji Electrophysiology:Un dergoing TAVR work up at [facility], [facility] showed Severe calcific aortic stenosis, SIRISHA 0.8 cm2 01/2021 Miguel Angel Haji Date Name CBC (H/H, RBC, INDIC ES, WBC, PLT) TSH, free T4, total T3 LIPID PANEL COMPREHENSIVE METABO LIC PANEL, W/EGFR Complete Echo MAGNESIUM COMPREHENSIVE METABO LIC PANEL, W/EGFR Complete Echo HISTORY OF PROCEDURES Procedure Date Procedure Name Provider Procedure Notes S tatus Schedule Followup Sandra Graham MD completed EKG Sandra Graham MD comp leted EKG Sandra Graham MD comp leted EKG Sandra Graham MD comp leted Schedule Followup Sandra Graham MD [address] Graham completed EKG Sandra Graham MD comp leted Schedule Followup Sandra Graham MD [address] Graham completed EKG Sandra Graham MD comp leted EKG Sandra Graham MD comp leted
--- OUTSIDE RECORDS SUMMARY | 2024-03-18 03:28 | XMS_ITS | Encounter Summary ---
Author Organization [facility] Health Address [address] [facility] [place] [address] Care Team Providers Care Information Resource Consultant Name Role Phone Unknown, Provider Primary Care Provider Unavaila ble Encounter Details Date Type Department Care Team (Late st Contact Info) Description 06/27/2021 Lab Requisition [facility] Care DermPath Lab [address] [facility], [place] [phone] Tito Benito MD [address] [place] [address] Social History Tobacco Use Types [...] Priority Date/Time Associated Diagnosis Comments DERMATOPATHOLOGY Routine 06/26/2021 3:33 AM CDT documented in this encounter Results * DERMATOPATHOLOGY (06/26/2021 3:33 AM CDT) Case Report Dermatopathology Report ? Case: [id number] ? Authorizing Provider: ??Tito Benito MD ?Collected: ? 06/26/2021 03:33 AM ? Ordering Location: ? [facility] ?Received: ?06/27/2021 01:46 PM ? Pathologist: ? Melania Marques MD ? Specimens: ?? A) - Skin, left med cheek laterall to ala ? B) - Skin, right cheek ? C) - Skin, above right lateral brow ? 2 6:53 PM CDT DERMATOPATHOLOGY LABORATORY Final Diagnosis Specimen A. 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 SKIN, right cheek: SEBORRHEIC KERATOSIS, IRRITATED (L82.0) Specimen C. SKIN, above right lateral brow: HYPERPLASTIC (HYPERTROPHIC) ACTINIC KERATOSIS; EXTENDING TO THE BASE OF THE SPECIMEN (L57.0) (see microscopic description and comment) 2 6:53 PM CDT DERMATOPATHOLOGY LABORATORY Clinical History A-C: R/O SCC, HAK, BCC, SK. 2 6:53 PM T DERMATOPATHOLOGY LABORATORY Gross Description Specimen A: Received is one formalin filled container labeled with the patient's name and designated left med cheek laterall to ala. The specimen consists of a shave biopsy measuring [id number]. Jar 0. Specimen B: Received is one formalin filled container labeled with the patient's name and designated right cheek. The specimen consists of a shave biopsy measuring [id number]. Jar 0. Specimen C: Received is one formalin filled container labeled with the patient's name and designated above right lateral brow. The specimen consists of a shave biopsy measuring 3a8x5kb. Jar 0. 2 6:53 PM T DERMATOPATHOLOGY LABORATORY Microscopic Description Specimen A. SKIN, left med cheek laterall to ala: The epidermis is acanthotic and shows full thickness disorderly maturation of keratinocytes, mitoses at different levels, and dyskeratotic cells. There is overlying parakeratosis and hyperkeratosis. Specimen B. SKIN, right cheek: There is acanthosis consisting of fairly uniform squamous cells with eosinophilic cytoplasm and squamous eddies. Specimen C. SKIN, above right lateral brow: There is hyperkeratosis alternating with parakeratosis. There is epidermal hyperplasia with disorderly maturation of keratinocytes with nuclear pleomorphism confined to the lower half of the epidermis. This process extends to the base of the specimen. COMMENT: A squamous cell carcinoma cannot be ruled out. 2 6:53 PM T DERMATOPATHOLOGY LABORATORY Disclaimer An external and internal positive and negative controls are appropriate for the histochemical, immunohistochemical and immunofluorescence stain(s) in this case (if any), except where stated explicitly. The performance characteristics of the stain(s) cited in this report were developed and its performance characteristic determined by the Dermatopathology Laboratory at [facility], directed by Dr. Preeti Marques. These tests need not be, and therefore are not, approved by the [place] Food and Drug Administration. The tests are used for clinical purposes. Billing Codes Specimen Charges Stain Charges 51243 80109 01426 1 1 1 2 6:53 PM CDT DERMATOPATHOLOGY LABORATORY Embedded Images 2 6:53 PM CDT DERMATOPATHOLOGY LABORATORY Pathology/Cytology TISSUE SPECIMEN FROM SKIN / Unknown 06/26/2021 3:33 AM CDT 06/27/2021 1:46 PM CDT Miscellaneous samples (specimen) TISSUE SPECIMEN FROM SKIN / Unknown 06/26/2021 3:33 AM CDT 06/27/2021 1:46 PM CDT Miscellaneous samples (specimen) TISSUE SPECIMEN FROM SKIN / Unknown 06/26/2021 3:33 AM CDT 06/27/2021 1:46 PM CDT Tito Benito MD LAB - PATHOLOGY/CYTO LOGY ORDERABLES DERMATOPATHOLOGY LABORATORY [facility] - Department of Dermatology [facility] Medicine [address] [place] [address], [address] [phone] documented in this encounter Visit Diagnoses Not on filedocumented in this encounter Care Teams Information Resource Consultant Relationship Specialty Start Date End Date Unknown, Provider PCP - General 07/09/17 documented as of this encounter
--- OUTSIDE RECORDS SUMMARY | 2024-03-18 03:28 | XMS_ITS | Clinical Summary ---
Author Organization [facility] Address [address] [place] [address] Care Team Providers Care Patient Service Associate Name Role Phone Unknown, Provider Primary Care Provider Unavaila ble Source Comments [facility],non-owned Affiliates and Associated Physician Practices is amultiple site organization consisting of ambulatory clinics and hospital sitesin [place], [place], [place] and [place]. This disclosure is being madepursuant to the Care Everywhere program and may not contain all information available regarding this patient. Last updated 17.[employer] Social History Tobacco Use Types Packs/Day Years Used Date Smoking Tobacco: Never Assessed Sex and Gender Information Value Date Recorded Sex Assigned at Not on file Gender Identity Not on file Sexual Orientation Not on file Plan of Treatment Health Maintenance Due Date Last Done Comments DTAP/TDAP/TD VACCINES (1 - Tdap) 1960 PNEUMOCOCCAL VACCINE 50+ (1 of 1 - PCV) 11/12/1991 ZOSTER VACCINE (1 of 2) 11/12/1991 Respiratory Syncytial Virus (RSV) Vaccine Pt: or over 60 yrs (1 - 1-dose 75+ series) 2016 COVID-19 VACCINE ( - 2023-2 5 season) 2023 INFLUENZA VACCINE (#1) 2023 DEPRESSION SCREENING 02/24/2024 MEDICARE AWV ? CALENDAR YEAR 2024 HEPATITIS B VACCINE Aged Out No longe r eligible based on patient's age to complete this topic HIB VACCINE Aged Out No longer eligi ble based on patient's age to complete this topic HPV VACCINE Aged Out No longer eligi ble based on patient's age to complete this topic MENINGOCOCCAL (Group B) VACCINE Aged Out No longer eligible based on patient's age to complete this topic MENINGOCOCCAL VACCINE Aged Out No maurice lucy eligible based on patient's age to complete this topic Care Teams Patient Service Associate Relationship Specialty Start Date End Date Unknown, Provider PCP - General 07/09/17
--- OUTSIDE RECORDS SUMMARY | 2024-03-18 03:28 | XMS_ITS | Referral Summary ---
Author Organization [facility] Address [address] [place] [address] Care Team Providers Care Associate Media Planner Name Role Phone Unknown, Provider Primary Care Provider Unavaila ble Source Comments [facility],non-owned Affiliates and Associated Physician Practices is amultiple site organization consisting of ambulatory clinics and hospital sitesin [place], [place], [place] and [place]. This disclosure is being madepursuant to the Care Everywhere program and may not contain all information available regarding this patient. Last updated 17.[facility] [employer] Social History Tobacco Use Types Packs/Day Years Used Date Smoking Tobacco: Never Assessed Sex and Gender Information Value Date Recorded Sex Assigned at Not on file Gender Identity Not on file Sexual Orientation Not on file Plan of Treatment Not on file Care Teams Associate Media Planner Relationship Specialty Start Date End Date Unknown, Provider PCP - General 07/09/17
--- OUTSIDE RECORDS SUMMARY | 2024-03-18 03:28 | XMS_ITS | Encounter Summary ---
Author Organization [facility] Health Address [address] [facility] [place] [address] Care Team Providers Care Superintendent Drivers Name Role Phone Unknown, Provider Primary Care Provider Unavaila ble Encounter Details Date Type Department Care Team (Late st Contact Info) Description 09/16/2023 Lab Requisition [facility] - DermPath Lab [address] [facility], [place] [phone] Tito Benito MD [address] [place] [address] Social History Tobacco Use Types [...] Priority Date/Time Associated Diagnosis Comments DERMATOPATHOLOGY Routine 09/15/2023 3:33 AM CDT documented in this encounter Results * DERMATOPATHOLOGY (09/15/2023 3:33 AM CDT) Case Report Dermatopathology Report ? Case: [id number] ? Authorizing Provider: ??Tito Benito MD ?Collected: ? 09/15/2023 03:33 AM ? Ordering Location: ? [facility] - ??Received: ?09/16/2023 03:08 PM ? DermPath Lab ? Pathologist: ? Steff Donaldson MD ? Specimen: ?Skin, left distal medial calf ? 4 2:57 PM CDT DERMATOPATHOLOGY LABORATORY Final Diagnosis Specimen A. 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 The specimen consists of a shave biopsy measuring [id number] mm. Jar 0. 4 2:57 PM CDT DERMATOPATHOLOGY LABORATORY Microscopic Description Specimen A. SKIN, left distal medial calf: The epidermis shows parakeratosis, full thickness disorderly maturation of keratinocytes, mitoses at different levels, and dyskeratotic cells. 4 2:57 PM CDT DERMATOPATHOLOGY LABORATORY Disclaimer An external and internal positive and negative controls are appropriate for the histochemical, immunohistochemical and immunofluorescence stain(s) in this case (if any), except where stated explicitly. The performance characteristics of the stain(s) cited in this report were developed and its performance characteristic determined by the Dermatopathology Laboratory at [facility], directed by Dr. Preeti Marques. These tests need not be, and therefore are not, approved by the [place] Food and Drug Administration. The tests are used for clinical purposes. Billing Codes Specimen Charges Stain Charges 12260 1 4 2:57 PM CDT DERMATOPATHOLOGY LABORATORY Embedded Images 4 2:57 PM CDT DERMATOPATHOLOGY LABORATORY Pathology/Cytolo gy TISSUE SPECIMEN FROM SKIN / Unknown 09/15/2023 3:33 AM CDT 09/16/2023 3:08 PM CDT Tito Benito MD LAB - PATHOLOGY/CYTO LOGY ORDERABLES DERMATOPATHOLOGY LABORATORY [facility] - Department of Dermatology [facility] Specialized Medicine [address] [place] [address], [address]rd Floor [address] [phone] documented in this encounter Visit Diagnoses Not on filedocumented in this encounter Care Teams Superintendent Drivers Relationship Specialty Start Date End Date Unknown, Provider PCP - General 07/09/17 documented as of this encounter
--- OUTSIDE RECORDS SUMMARY | 2024-03-18 03:28 | XMS_ITS | Encounter Summary ---
Author Organization [facility] Address [address] [place] [address] Phone Care Team Providers Care Press Operator Printing Name Role Phone Georgiana Tripp DO Primary Care Provider [phone] Encounter Details Date Type Department Care Team (Late st Contact Info) Description 03/07/2024 Telephone [facility] [address] [facility] Advanced Medicine 8th [place] [address] [place] [address] La Patel, INSURANCE ASSISTANT [address] [facility] [address] [place] [address] Social History Tobacco Use Types Packs/Day Years Used Date Smoking Tobacco: Former Cigarettes Q uit: 1984 Smokeless Tobacco: Former Alcohol Use Standard Drinks/Week Comments Yes 14 [...] on file 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
--- OUTSIDE RECORDS SUMMARY | 2024-03-18 03:28 | XMS_ITS | Clinical Summary ---
Author Organization [facility] Address [address] [place] [address]. 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 Gender Identity Not on file Sexual Orientation Not on file Plan of Treatment Health Maintenance Due Date Last Done Comments Annual Medicare Wellness Visit 2006 COVID-19 Vaccine ( season) 2023 12/04/2022, 09/27/2021, 11/23/2020, Additional history exists Influenza Adult (#1) 2023 11/16/2021, 12/25/19 20 DTaP, Tdap and Td Vaccines (2 - Td or Tdap) 04/02/2031 04/02/2021 Pneumococcal Vaccine: 65+ Years Completed 08/13/2022, 04/02/2021 Zoster Vaccines Completed 11/12/2022, 08/13/2022 RSV Immunization or 60+ Years Completed 01/19/2023 Meningococcal Vaccine Aged Out No maurice lucy eligible based on patient's age to complete this topic RSV Immunizations Under 20 Months Aged Out No longer eligible based on patient's age to complete this topic Medical Devices Implanted Type Area Manager Digital Ad Operations Device Identifier Shelf Expiration Date Model / Serial / Lot Ra Lead-01/27/2021 Implanted:Qty: 1 on 01/27/2021 by Sandra Graham MD Lead Implant Right: Atrium [employer] S0LIA S 45 / [id number] / Rv Lead-01/27/2021 Implanted:Qty: 1 on 01/27/2021 by Sandra Graham MD Lead Implant Right: Ventricle [employer] SOLIA S 53 / [id number] / Pacemaker-01/27 Implanted:Qty: 1 on 01/27/2021 by Sandra Graham MD Pacemaker Chest [employer] EDORA 8 -T MODEL [id number] / [id number] / Description:MR Conditional u nder following conditions: Static magnetic field of 1.5 T or 3 T, max spatial gradient field of 3000 gauss/cm or less, Max slew rate 200 T/m/s, Max whole body DAMIAN of 2 w/kg or less, Head DAMIAN 3.2 W/kg or less, Max 30 minutes active scan time in 60 minute window Insurance [facility] MED REPLACE [facility] MEDICARE Care Teams Gerontological Nurse Practitioner Relationship Specialty Start Date End Date None, Provider, PCP - General UNKNOWN PHYSICIAN SPECIALTY 02/25/23
--- OUTSIDE RECORDS SUMMARY | 2024-03-18 03:28 | XMS_ITS | Encounter Summary ---
Author Organization [facility] Health Address [address] [place] [address] Care Team Providers Care Finishing Supervisor Name Role Phone Unknown, Provider Primary Care Provider Unavaila ble Encounter Details Date Type Department Care Team (Late st Contact Info) Description 08/05/2018 Lab Requisition [facility] Care DermPath Lab [address] [facility], [place] [phone] Tito Beniot MD [address] [place] [address] Social History Tobacco Use Types [...] Priority Date/Time Associated Diagnosis Comments DERMATOPATHOLOGY Routine 08/04/2018 12:0 0 AM CDT documented in this encounter Results * DERMATOPATHOLOGY (08/04/2018 12:00 AM CDT) Case Report Dermatopathology Report ? Case: [id number] ? Authorizing Provider: ??Tito Benito MD ?Collected: ? 08/04/2018 12:00 AM ? Pathologist: ? Irena Villagran MD ?Received: ?08/05/2018 12:31 PM ? Specimen: ?Skin, left medial chest ? 1:16 PM CDT DERMATOPATHOLOGY LABORATORY Final Diagnosis Specimen A. SKIN, left medial chest: PIGMENTED SEBORRHEIC KERATOSIS (L82.1) 1:16 PM CDT DERMATOPATHOLOGY LABORATORY Clinical History R/O ISK vs other. 1:16 PM CDT DERMATOPATHOLOGY LABORATORY Gross Description Specimen A: Received is one formalin filled container labeled with the patient's name and designated left medial chest. The specimen consists of a shave biopsy measuring [id number]. Jar 0. 1:16 PM CDT DERMATOPATHOLOGY LABORATORY Microscopic Description Specimen A. SKIN, left medial chest: Sections show an acanthotic lesion composed of relatively uniform keratinocytes. There is hyperkeratosis and pseudo horn cysts. Pigment is present in the keratinocytes composing this tumor. 1:16 PM CDT DERMATOPATHOLOGY LABORATORY Disclaimer An external and internal positive and negative controls are appropriate for the histochemical, immunohistochemical and immunofluorescence stain(s) in this case (if any), except where stated explicitly. The performance characteristics of the stain(s) cited in this report were developed and its performance characteristic determined by the Dermatopathology Laboratory at [facility], directed by Dr. Preeti Marques. These tests need not be, and therefore are not, approved by the [place] Food and Drug Administration. The tests are used for clinical purposes. Billing Codes Specimen Charges Stain Charges 07903 1 1:16 PM CDT DERMATOPATHOLOGY LABORATORY Embedded Images 1:16 PM CDT DERMATOPATHOLOGY LABORATORY Pathology/Cytolog y TISSUE SPECIMEN FROM SKIN / Unknown 08/04/2018 08/05/2018 12:31 PM CDT Tito Benito MD LAB - PATHOLOGY/CYTO LOGY ORDERABLES DERMATOPATHOLOGY LABORATORY [facility] - Department of Dermatology [address] [place] [address], 5th Floor Lab B [address] [phone] documented in this encounter Visit Diagnoses Not on filedocumented in this encounter Care Teams Finishing Supervisor Relationship Specialty Start Date End Date Unknown, Provider PCP - General 07/09/17 documented as of this encounter
--- OUTSIDE RECORDS SUMMARY | 2024-03-18 03:28 | XMS_ITS | Encounter Summary ---
Author Organization [facility] Health Address [address] [facility] [place] [address] Care Team Providers Care Relationship Counselor Name Role Phone Unknown, Provider Primary Care Provider Unavaila ble Encounter Details Date Type Department Care Team (Late st Contact Info) Description 07/09/2017 Lab Requisition [facility] Care DermPath Lab [address] [facility], [place] [phone] Tito Benito MD [address] [place] [address] Social History Tobacco Use Types [...] Priority Date/Time Associated Diagnosis Comments DERMATOPATHOLOGY Routine 07/08/2017 12:0 0 AM CDT documented in this encounter Results * DERMATOPATHOLOGY (07/08/2017 12:00 AM CDT) Case Report Dermatopathology Report ? Case: [id number] ? Authorizing Provider: ??Tito Benito MD ?Collected: ? 07/08/2017 12:00 AM ? Pathologist: ? Melania Marques MD ? Received: ?07/09/2017 12:28 PM ? Specimen: ?Skin, left latter-day ? 5:06 PM T DERMATOPATHOLOGY LABORATORY Final Diagnosis Specimen A. SKIN, left latter-day: SEBORRHEIC KERATOSIS, IRRITATED (L82.0) PRESENT AT MARGIN 5:06 PM T DERMATOPATHOLOGY LABORATORY Clinical History R/O BCC. Check margins. 5:06 PM T DERMATOPATHOLOGY LABORATORY Gross Description Specimen A: Received is one formalin filled container labeled with the patient's name and designated left latter-day. The specimen consists of a shave biopsy measuring [id number], the margin is inked green. Jar 0. 5:06 PM T DERMATOPATHOLOGY LABORATORY Microscopic Description Specimen A. SKIN, left latter-day: There is acanthosis consisting of fairly uniform squamous cells with eosinophilic cytoplasm and squamous eddies. This lesion is present at the margin of the specimen. 5:06 PM [facility] DERMATOPATHOLOGY LABORATORY Disclaimer An external and internal positive and negative controls are appropriate for the histochemical, immunohistochemical and immunofluorescence stain(s) in this case (if any), except where stated explicitly. The performance characteristics of the stain(s) cited in this report were developed and its performance characteristic determined by the Dermatopathology Laboratory at [facility]. These tests need not be, and therefore are not, approved by the [place] Food and Drug Administration. The tests are used for clinical purposes. Billing Codes Specimen Charges Stain Charges 81845 1 5:06 PM CDT DERMATOPATHOLOGY LABORATORY Embedded Images 5:06 PM T DERMATOPATHOLOGY LABORATORY Pathology/Cytolog y TISSUE SPECIMEN FROM SKIN / Unknown 07/08/2017 07/09/2017 12:28 PM CDT Tito Benito MD LAB - PATHOLOGY/CYTO LOGY ORDERABLES DERMATOPATHOLOGY LABORATORY [facility] - Department of Dermatology [address] [place] [address], 5th Floor Lab B [address] [phone] documented in this encounter Visit Diagnoses Not on filedocumented in this encounter Care Teams Relationship Counselor Relationship Specialty Start Date End Date Unknown, Provider PCP - General 07/09/17 documented as of this encounter
--- OUTSIDE RECORDS SUMMARY | 2024-03-18 03:28 | XMS_ITS | Patient Health Summary ---
Author Organization [facility] Address [address] [place] [address] Care Team Providers Care Network Contract Manager Name Role Phone Unknown, Provider Primary Care Provider Unavaila ble Note from [facility],non-owned Affiliates and Associated Physician Practices is amultiple site organization consisting of ambulatory clinics and hospital sitesin [place], [place], [place] and [place]. This disclosure is being madepursuant to the Care Everywhere program and may not contain all information available regarding this patient. Last updated 17.[facility] Social History Tobacco Use Types Packs/Day Years Used Date Smoking Tobacco: Never Assessed Sex and Gender Information Value Date Recorded Sex Assigned at Not on file Gender Identity Not on file Sexual Orientation Not on file Procedures * DERMATOPATHOLOGY(Performed 09/15/2023) * DERMATOPATHOLOGY(Performed 10/07/2022) * DERMATOPATHOLOGY(Performed 03/19/2022) * DERMATOPATHOLOGY(Performed 06/26/2021) * DERMATOPATHOLOGY(Performed 03/16/2019) * DERMATOPATHOLOGY(Performed 08/04/2018) * DERMATOPATHOLOGY(Performed 07/08/2017) * DERMATOPATHOLOGY(Performed 07/10/2016) * DERMATOPATHOLOGY(Performed 02/05/2016) * DERMATOPATHOLOGY(Performed 12/18/2011) * DERMATOPATHOLOGY(Performed 12/18/2011) Results * DERMATOPATHOLOGY (09/15/2023 3:33 AM CDT) Only the most recent of11 resultswithin the time period is included. Case Report Dermatopathology Report ? Case: [id number] ? Authorizing Provider: ??Tito Benito MD ?Collected: ? 09/15/2023 03:33 AM ? Ordering Location: ? [facility] - ??Received: ?09/16/2023 03:08 PM [...] specimen consists of a shave biopsy measuring [id number] mm. Jar 0. 4 2:57 PM CDT [...] purposes. Billing Codes Specimen Charges Stain Charges 98998 1 4 2:57 PM CDT DERMATOPATHOLOGY LABORATORY Embedded Images 4 2:57 PM CDT DERMATOPATHOLOGY LABORATORY Pathology/Cytolo gy TISSUE SPECIMEN FROM SKIN / Unknown 09/15/2023 3:33 AM CDT 09/16/2023 3:08 PM CDT Tito Benito MD LAB - PATHOLOGY/CYTO LOGY ORDERABLES DERMATOPATHOLOGY LABORATORY [facility] - Department of Dermatology [address], [address] [phone] Care Teams Network Contract Manager Relationship Specialty Start Date End Date Unknown, Provider PCP - General 07/09/17
--- OUTSIDE RECORDS SUMMARY | 2024-03-18 03:28 | XMS_ITS | Encounter Summary ---
Author Organization [facility] Healthcare Address [address] [place] [address] Care Team Providers Care Client Technical Professional Name Role Phone Georgiana Tripp DO Primary Care Provider [phone]- [phone] Encounter Details Date Type Department Care Team (Late st Contact Info) Description 03/16/[address] 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[employer] Gender Identity Not on file Sexual Orientation Not on file Occupation Industry Job Start Date Job End Date Retired Not on file Not on file Not on file documented as of this encounter Plan of Treatment Not on file documented as of this encounter Procedures Procedure Name Priority Date/Time Associated Diagnosis Comments CARDIOLOGY DOCUMENT SCAN Routine 03/08/2024 7:27 AM INSPECTOR [employer] documented in this encounter Results * Cardiology Document Scan (03/08/2024 7:27 AM INSPECTOR [employer]) Anatomical Region Laterality Modality Other [facility]ar Camacho MD CV CARDIAC SERVICES PRO CEDURES Final Result documented in this encounter Visit Diagnoses Not on filedocumented in this encounter Care Teams Client Technical Professional Relationship Specialty Start Date End Date Georgiana Tripp DO PCP - General Family Medicine 03/20/21 documented as of this encounter
[2024-03-18 08:00] VITALS: BP 106/60; PULSE 68; RESP 18; TEMP 37.1; O2SAT 95
[2024-03-18 09:26] VITALS: PULSE 78
[2024-03-18] MEDS: SIMETHICONE 80 MG TAB.CHEW PO ×4 (09:26→21:56)
[2024-03-18] MEDS: HYOSCYAMINE SULFATE 0.125 MG TABLET SUBLINGUAL ×2 (09:26→16:45)
[2024-03-18] MEDS: carvediloL 1.56 MG TABLET PO ×2 (09:26→21:56)
[2024-03-18] MEDS: FAMOTIDINE 10 MG TABLET PO (09:26)
[2024-03-18] MEDS: SACUBITRIL/VALSARTAN 24-26 MG TABLET 1 TAB PO ×2 (09:26→21:56)
[2024-03-18] MEDS: THERAPEUTIC MULTIVITAMINS/MINERALS TAB (*BKC) 1 TABLET PO (09:27)
[2024-03-18] MEDS: AMOXICILLIN/CLAVULANATE K 875-125 MG TAB 1 TABLET PO ×2 (09:27→21:56)
[2024-03-18] MEDS: LINEZOLID 600 MG TABLET PO ×2 (09:27→21:56)
[2024-03-18] MEDS: oxyCODONE/ACETAMINOPHEN (*CRX) 10-325 MG TABLET 1 TAB PO ×3 (09:27→21:57)
[2024-03-18] MEDS: POTASSIUM CHLORIDE 20 MEQ PACKET (FOR LIQUID) PO (09:29)
[2024-03-18] MEDS: FOLIC ACID 1 MG TABLET PO (09:29)
[2024-03-18] MEDS: FUROSEMIDE 20 MG TABLET PO (09:29)
[2024-03-18] MEDS: HEPARIN SODIUM 5,000 UNITS/ML VIAL 5000 UNITS SUB-Q ×2 (09:31→21:56)
[2024-03-18 11:57] LABS: Hematocrit 28.1 % (37.0-46.0); Hemoglobin 8.8 g/dL (12.4-15.3); Mean Corpuscular HGB Conc 31.3 g/dL (32-36); Mean Corpuscular Hemoglobin 28.4 pg (27.0-31.0); Mean Corpuscular Volume 90.6 fL (78.0-102.0); Mean Platelet Volume 9.7 fl (8.7-11.0); Platelet Count Result 199 K/mm3 (150-420); Red Cell Distribution Width 15.8 % (11.6-14.4); White Blood Count 6.3 K/mm3 (4.8-10.8)
--- NOTE | 2024-03-18 11:57 | PM.EVENT ---
Event Note Event Note Event Note: Patient currently has blood in Villeda catheter and he denies any pulling at his catheter this is new from when I laid eye on him this morning we will order labs and adjust accordingly patient currently receiving Heparin injection due to hip replacement.
[2024-03-18 12:07] LABS: Anion Gap 7 mmol/L (4-12); Blood Urea Nitrogen 14 mg/dL (7-18); Calcium 8.4 mg/dL (8.5-10.1); Carbon Dioxide 27 mmol/L (21-32); Chloride 108 mmol/L (98-108); Estimated CRCL calculation 57 ml/min; Estimated Glomerular Filt Rate > 60; Glucose 119 mg/dL (70-99); Osmolality Calculated 295 mOsm/kg (285-295); Potassium 3.2 mmol/L (3.5-5.1); Sodium 142 mmol/L (136-145)
[2024-03-18 12:13] LABS: Partial Thromboplastin Time 28.3 Sec (23.9-30.70)
--- NOTE | 2024-03-18 12:37 | PC.NURSE ---
Spoke with CIVIL SERVICE CLERK r/t stat labs drawn for hematuria/red colored urine. Instructed to monitor urine at this time, if color does not lessen then call her.
--- NOTE | 2024-03-18 15:50 | PC.NURSE ---
1130 hand icer aware of urine in vazquez bag is redish purple in tubing. not as red this am. more dk adam. not sure if it was tugged during care. labs drawn. hand icer aware of results. will cont to monitor urine.
[2024-03-18 16:00] VITALS: BP 99/64; PULSE 70; RESP 16; TEMP 37.2; O2SAT 99
[2024-03-18 21:56] VITALS: PULSE 60
[2024-03-18] MEDS: LOPERAMIDE HCL 2 MG CAPSULE PO (21:56)
[2024-03-19] VITALS: BP 106/50; PULSE 60; RESP 16; TEMP 36.5; O2SAT 98
[2024-03-19 08:00] VITALS: BP 120/57; PULSE 79; RESP 20; TEMP 36.6; O2SAT 97
--- NOTE | 2024-03-19 08:18 | PM.EVENT ---
Event Note Event Note Event Note: Gross hematuria we will hold heparin at this time CT of abdomen pelvis, patient is having abdominal pain . I will call ortho and discuss options, Call placed to urology as he has gross hematuria that is not improving he has scortal cellulitis that is being treated we will continue to monitor awaiting a return phone call.
--- NOTE | 2024-03-19 08:40 | PC.NURSE ---
Bladder scan done per order, Largest result of 4 scans 17 ml. SHARAN Mckeon notified. Scan result printed and placed in chart.
[2024-03-19] MEDS: oxyCODONE/ACETAMINOPHEN (*CRX) 10-325 MG TABLET 1 TAB PO (09:30)
[2024-03-19 09:31] VITALS: PULSE 79
[2024-03-19] MEDS: carvediloL 1.56 MG TABLET PO (09:31)
[2024-03-19] MEDS: THERAPEUTIC MULTIVITAMINS/MINERALS TAB (*BKC) 1 TABLET PO (09:31)
[2024-03-19] MEDS: FAMOTIDINE 10 MG TABLET PO (09:31)
[2024-03-19] MEDS: AMOXICILLIN/CLAVULANATE K 875-125 MG TAB 1 TABLET PO ×2 (09:31→21:58)
[2024-03-19] MEDS: FUROSEMIDE 20 MG TABLET PO (09:31)
[2024-03-19] MEDS: SACUBITRIL/VALSARTAN 24-26 MG TABLET 1 TAB PO ×2 (09:31→21:58)
[2024-03-19] MEDS: LINEZOLID 600 MG TABLET PO ×2 (09:32→21:59)
[2024-03-19] MEDS: SIMETHICONE 80 MG TAB.CHEW PO ×4 (09:32→21:57)
[2024-03-19] MEDS: FOLIC ACID 1 MG TABLET PO (09:32)
[2024-03-19] MEDS: POTASSIUM CHLORIDE 20 MEQ PACKET (FOR LIQUID) PO (09:33)
[2024-03-19] MEDS: FUROSEMIDE 40 MG TABLET PO (12:49)
[2024-03-19 16:00] VITALS: BP 124/60; PULSE 82; RESP 20; TEMP 36.7; O2SAT 98
[2024-03-19 22:00] VITALS: PULSE 51
[2024-03-19 23:42] VITALS: BP 102/53; PULSE 51; RESP 16; TEMP 36.7; O2SAT 97
[2024-03-20] MEDS: LOPERAMIDE HCL 2 MG CAPSULE PO (00:56)
[2024-03-20 08:00] VITALS: BP 114/58; PULSE 55; RESP 20; TEMP 36.8; O2SAT 96
[2024-03-20] MEDS: SIMETHICONE 80 MG TAB.CHEW PO ×4 (08:44→21:27)
[2024-03-20] MEDS: THERAPEUTIC MULTIVITAMINS/MINERALS TAB (*BKC) 1 TABLET PO (08:44)
[2024-03-20 08:45] VITALS: PULSE 55
[2024-03-20] MEDS: FAMOTIDINE 10 MG TABLET PO (08:45)
[2024-03-20] MEDS: SACUBITRIL/VALSARTAN 24-26 MG TABLET 1 TAB PO ×2 (08:45→21:27)
[2024-03-20] MEDS: AMOXICILLIN/CLAVULANATE K 875-125 MG TAB 1 TABLET PO (08:45)
[2024-03-20] MEDS: carvediloL 1.56 MG TABLET PO ×2 (08:45→21:28)
[2024-03-20] MEDS: POTASSIUM CHLORIDE 20 MEQ PACKET (FOR LIQUID) PO (08:46)
[2024-03-20] MEDS: FOLIC ACID 1 MG TABLET PO (08:46)
[2024-03-20] MEDS: oxyCODONE/ACETAMINOPHEN (*CRX) 10-325 MG TABLET 1 TAB PO (08:46)
[2024-03-20] MEDS: FUROSEMIDE 20 MG TABLET PO (08:47)
--- NOTE | 2024-03-20 09:02 | P.PNIM_ITS ---
Progress Note: A&P Assessment and Plan (1) Weakness: Code(s): R53.1 - Weakness Status: Acute Assessment and Plan: * continue PT and OT 03/20 * no change to current treatment plan (2) Closed intertrochanteric fracture of femur: Qualifiers: Encounter type: initial encounter Fracture alignment: displaced Laterality: left Qualified Code(s): S72.142A - Displaced intertrochanteric fracture of left femur, initial encounter for closed fracture Code(s): S72.143A - Displaced intertrochanteric fracture of unspecified femur, initial encounter for closed fracture Status: Acute Assessment and Plan: * status post ORIF of left femur intratrochanteric fracture with cephalomedullary nail by Dr. Brenner * continue heparin b.i.d. for DVT prophylaxis * continue PT and OT 03/20 * heparin currently on hold due to hematuria yesterday, still pink tinged urine today Will continue to hold heparin for now * continue PT and OT (3) CHF (congestive heart failure): Code(s): I50.9 - Heart failure, unspecified Status: Acute Assessment and Plan: * continue Coreg, Lasix, Entresto 03/20 * no change to current treatment plan (4) Diarrhea: Code(s): R19.7 - Diarrhea, unspecified Status: Acute Assessment and Plan: * continue Imodium * Will start simethicone 80 mg p.o. q.i.d. for gas pain 03/20 * will check C diff today (5) Cellulitis: Code(s): L03.90 - Cellulitis, unspecified Status: Acute Assessment and Plan: * currently on Augmentin and linezolid * continue Vazquez catheter 03/20 * therapy complete Time Spent With Patient Time with patient: 25 - 35 minutes Subjective Date/time seen: 03/20/24 09:02 Interval history: Interval history: This is a 83-year-old male with a significant past medical history of Parkinson's disease, GERD, pneumonia, pulmonary embolism, DVT, pacemaker who presented to [facility] for swing bed program. Patient was recently hospitalized at [facility] from 03/04/24-03/16/24 after sustaining a ground level fall and fracturing his left femur. He was taken to the OR on 03/08/2024 for an ORIF of his left femur intertrochanteric fracture with cephalomedullary nail With Dr. Thurman. In the postop. He was noted to have a adynamic ileus and general surgery was consulted for management of the ileus. He also was being followed by Urology due to some scrotal edema that he developed postoperatively. He did have an ultrasound of the scrotum which showed possible cellulitis however it was ruled out by urology services. Pat ient was however treated with Zyvox and Augmentin. Patient denies any fever, chills, nausea, vomiting, chest pain, or shortness of breath. He endorses abdominal pain due to gas and diarrhea. Subjective: patient still reporting gas pain in his abdomen and frequent diarrhea. Labs reviewed. Review of Systems Review of Systems: All systems reviewed & are unremarkable except as noted in HPI and below Constitutional: Constitutional: Reports as per HPI and Reports no additional constitutional complaints Eyes: Eyes: Reports as per HPI and Reports no additional eye complaints ENT: Reports system reviewed and no additional complaints, except as documented and Reports as per HPI Cardiovascular: Cardiovascular: Reports as per HPI and Reports no additional cardiovascular complaints Respiratory: Respiratory: Reports as per HPI and Reports no additional respiratory complaints Gastrointestinal: Gastrointestinal: Reports as per HPI and Reports no additional gastrointestinal complaints Genitourinary: Genitourinary: Reports no additional male genitourinary complaints and Reports as per HPI Musculoskeletal: Musculoskeletal: Reports no additional musculoskeletal complaints and Reports as per HPI Integumentary/Breasts: Skin/Breast: Reports system reviewed and no additional complaints, except as docu and Reports as per HPI Neurologic: Reports system reviewed and no additional complaints, except as documented and Reports as per HPI Psychiatric: Psychiatric: Reports no additional psychiatric complaints and Reports as per HPI Exam Narrative: General: In no acute distress, well nourished Cardiac: Normal S1 and S2. No murmur, gallops or friction rubs, peripheral pulses intact. Respiratory: Lungs clear to auscultation, no adventitious lung sounds, currently on room air Gastrointestinal: soft, non-distended, non-tender, hyperactive bowel sounds. reports gas discomfort and diarrhea : vazquez catheter in place draining adam urine and pink tinged in the tubing, scrotal edema Extremities: moves all extremities well, no edema Skin: Left hip dressing in place Neuro: Alert and oriented x4 Objective Data Vital Signs Vital Signs: Vital Signs - 24 hr 03/19/24 09:31 03/19/24 16:00 03/19/24 22:00 Temperature 98.1 F Pulse Rate 79 82 51 L Respiratory Rate 20 Blood Pressure 124/60 Pulse Oximetry 98 Oxygen Delivery Room Air 03/19/24 23:42 03/20/24 08:45 Temperature 98.0 F Pulse Rate 51 L 55 L Respiratory Rate 16 Blood Pressure 102/53 L Pulse Oximetry 97 Oxygen Delivery Room Air Intake/Output Intake/Output: Intake & Output 03/17/24 03/18/24 03/19/24 03/20/24 23:59 23:59 23:59 23:59 Intake Total 1550 867 730 400 Output Total 249 633 0796 450 Balance 950 117 -620 -50 Meds/Results Medications: Active Medications Generic Name Dose Route Start Last Admin Trade Name Freq PRN Reason Stop Dose Admin Amoxicillin/Clavulanate Potassium 1 tablet 03/16/24 21:00 03/20/24 08:45 Amoxicillin/Clavulanate K 875-125 Mg Tab PO 1 tablet Q12H YARA Administration Carvedilol 1.56 mg 03/17/24 21:00 03/20/24 08:45 Carvedilol 1.56 Mg Tablet PO 1.56 mg Q12HR YARA Administration Famotidine 10 mg 03/17/24 09:00 03/20/24 08:45 Famotidine 10 Mg Tablet PO 10 mg DAILY YARA Administration Folic Acid 1 mg 03/17/24 09:00 03/20/24 08:46 Folic Acid 1 Mg Tablet PO 1 mg DAILY YARA Administration Furosemide 20 mg 03/17/24 09:00 03/20/24 08:47 Furosemide 20 Mg Tablet PO 20 mg QAM YARA Administration Heparin Sodium (Porcine) 5,000 units 03/16/24 21:00 03/18/24 21:56 Heparin Sodium 5,000 Units/Ml Vial SUB-Q 5,000 units Q12HR YARA Administration Hyoscyamine 0.125 mg 03/16/24 18:42 03/18/24 16:45 Hyoscyamine Sulfate 0.125 Mg Tablet SUBLINGUAL 0.125 mg QID PRN Administration dyspepsia Loperamide HCl 2 mg 03/16/24 18:42 03/20/24 00:56 Loperamide Hcl 2 Mg Capsule PO 2 mg Q6H PRN Administration diarrhea Multivitamins/Calcium 1 tablet 03/17/24 09:00 03/20/24 08:44 Therapeutic Multivitamins/Minerals Tab (*Bkc) PO 1 tablet DAILY YARA Administration Oxycodone/Acetaminophen 1 tab 03/16/24 18:42 03/20/24 08:46 Oxycodone/Acetaminophen (*Crx) 10-325 Mg Tablet PO 1 tab Q6H PRN Administration Pain Rated 7-10 Potassium Chloride 20 meq 03/17/24 09:00 03/20/24 08:46 Potassium Chloride 20 Meq Packet (For Liquid) PO 03/21/24 09:00 20 meq DAILY YARA Administration Sacubitril/Valsartan 1 tab 03/16/24 21:00 03/20/24 08:45 Sacubitril/Valsartan 24-26 Mg Tablet PO 1 tab Q12HR YARA Administration Simethicone 80 mg 03/17/24 13:15 03/20/24 08:44 Simethicone 80 Mg Tab.Chew PO 80 mg QID YARA Administration Radiology Results: ITS Impressions Abdomen/Pelvis CT 03/19/24 09:26 IMPRESSION: 1. New small bilateral pleural effusions with persistent chronic interstitial lung disease peripherally in the dependent lower lungs. 2. Persistent fluid throughout the mid to distal colon consistent with nonspecific diarrhea. 3. Cholelithiasis. 4. Nonobstructing right nephrolithiasis. 5. Unchanged 3.5 cm fusiform infrarenal abdominal aortic aneurysm. Quality VTE Prophylaxis VTE prophylaxis: pharmacologic ordered
[2024-03-20 10:35] LABS: Basophils Absolute Auto 0.01 K/mm3 (0.00-0.10); Basophils Percent Auto 0.3 % (0.0-1.0); Eosinophils Absolute Auto 0.06 K/mm3 (0.02-0.50); Eosinophils Percent Auto 1.6 % (1.0-6.0); Hematocrit 25.8 % (37.0-46.0); Hemoglobin 8.1 g/dL (12.4-15.3); Immature Granulocyte Absolute 0.01 K/mm3 (0.00-0.00); Immature Granulocyte Percent A 0.3 % (0.0-0.0); Lymphocytes Absolute Auto 0.53 K/mm3 (1.10-4.50); Lymphocytes Percent Auto 13.7 % (18.0-42.0); Mean Corpuscular HGB Conc 31.4 g/dL (32-36); Mean Corpuscular Hemoglobin 28.4 pg (27.0-31.0); Mean Corpuscular Volume 90.5 fL (78.0-102.0); Mean Platelet Volume 10.2 fl (8.7-11.0); Monocytes Absolute Auto 0.32 K/mm3 (0.10-0.90); Monocytes Percent Auto 8.3 % (2.0-11.0); Neutrophils Absolute Auto 2.94 K/mm3 (1.70-7.20); Neutrophils Percent Auto 75.8 % (50.0-70.0); Platelet Count Result 151 K/mm3 (150-420); Red Blood Count 2.85 M/mm3 (4.70-6.10); Red Cell Distribution Width 16.3 % (11.6-14.4); White Blood Count 3.9 K/mm3 (4.8-10.8)
[2024-03-20 11:04] LABS: Alanine Aminotransferase 32 U/L (16-63); Albumin Level 2.1 g/dL (3.4-5.0); Alkaline Phosphatase 186 U/L (46-116); Anion Gap 9 mmol/L (4-12); Aspartate Amino Transferase 40 U/L (15-37); Bilirubin,Total 0.5 mg/dL (0.00-1.00); Blood Urea Nitrogen 9 mg/dL (7-18); Calcium 7.8 mg/dL (8.5-10.1); Carbon Dioxide 25 mmol/L (21-32); Chloride 107 mmol/L (98-108); Estimated CRCL calculation 64 ml/min; Estimated Glomerular Filt Rate > 60; Glucose 145 mg/dL (70-99); Osmolality Calculated 293 mOsm/kg (285-295); Potassium 2.9 mmol/L (3.5-5.1); Sodium 141 mmol/L (136-145)
--- NOTE | 2024-03-20 11:25 | PC.NURSE ---
Informed Freezer Laboratory Technician of Potassium results of 2.9 and WBC at 3.9.
[2024-03-20] MEDS: POTASSIUM CHLORIDE 20 MEQ ER TABLET 40 MEQ PO ×2 (12:30→17:32)
[2024-03-20 16:00] VITALS: BP 102/56; PULSE 55; RESP 20; TEMP 36.2; O2SAT 97
[2024-03-20 21:28] VITALS: PULSE 60
[2024-03-20 23:53] VITALS: BP 112/56; PULSE 60; RESP 16; TEMP 36.7; O2SAT 97
[2024-03-21] MEDS: LOPERAMIDE HCL 2 MG CAPSULE PO ×3 (02:27→17:50)
[2024-03-21 06:03] LABS: Potassium 3.4 mmol/L (3.5-5.1)
[2024-03-21 06:52] LABS: Toxigenic C. Diff NEGATIVE (NEGATIVE)
[2024-03-21 08:00] VITALS: BP 119/55; PULSE 55; RESP 16; TEMP 36.6; O2SAT 97
[2024-03-21] MEDS: POTASSIUM CHLORIDE 20 MEQ ER TABLET 40 MEQ PO ×2 (08:54→17:10)
[2024-03-21] MEDS: SIMETHICONE 80 MG TAB.CHEW PO ×4 (08:54→20:00)
[2024-03-21] MEDS: SACUBITRIL/VALSARTAN 24-26 MG TABLET 1 TAB PO ×2 (08:54→20:00)
[2024-03-21 08:55] VITALS: PULSE 55
[2024-03-21] MEDS: THERAPEUTIC MULTIVITAMINS/MINERALS TAB (*BKC) 1 TABLET PO (08:55)
[2024-03-21] MEDS: FAMOTIDINE 10 MG TABLET PO (08:55)
[2024-03-21] MEDS: FOLIC ACID 1 MG TABLET PO (08:55)
[2024-03-21] MEDS: carvediloL 1.56 MG TABLET PO (08:55)
[2024-03-21] MEDS: FUROSEMIDE 20 MG TABLET PO (08:56)
[2024-03-21] MEDS: POTASSIUM CHLORIDE 20 MEQ PACKET (FOR LIQUID) PO (08:56)
--- NOTE | 2024-03-21 11:01 | PC.NURSE ---
Dressing changed to surgical sites on L hip. Fer intact in 4 sites. No s/s infection noted. Sites cleansed with sterile water, island dressing changed, gauze and cloth tape changed to upper site. Patient tolerated well.
--- NOTE | 2024-03-21 11:35 | PM.EVENT ---
Event Note Event Note Event Note: nursing notified me blisters on top of both of his feet from heel protectors. Wound orders placed for bacitracin to be placed on blistered areas at least once daily and keep it open to air. We will continue to monitor the area.
[2024-03-21] MEDS: NEOMYCIN/POLYMYXIN/BACITRACIN OINTMENT 15 GM TUBE 1 APPLIC TOPICAL (13:01)
[2024-03-21 16:00] VITALS: BP 115/60; PULSE 56; RESP 16; TEMP 37.1; O2SAT 94
[2024-03-21] MEDS: oxyCODONE/ACETAMINOPHEN (*CRX) 10-325 MG TABLET 1 TAB PO (17:49)
[2024-03-21 20:00] VITALS: PULSE 59; RESP 16; O2SAT 94
[2024-03-21 23:53] VITALS: BP 105/56; PULSE 59; RESP 17; TEMP 36.9; O2SAT 97
[2024-03-22] MEDS: LOPERAMIDE HCL 2 MG CAPSULE PO ×3 (00:06→12:31)
[2024-03-22] MEDS: oxyCODONE/ACETAMINOPHEN (*CRX) 10-325 MG TABLET 1 TAB PO ×4 (00:06→23:57)
[2024-03-22 06:10] LABS: Prostate Specific Antigen 0.2 ng/mL (< OR = 4.0)
[2024-03-22 08:00] VITALS: BP 105/60; PULSE 70; RESP 16; TEMP 36.7; O2SAT 96
[2024-03-22 08:13] LABS: Hematocrit 24.9 % (37.0-46.0); Hemoglobin 7.7 g/dL (12.4-15.3); Mean Corpuscular HGB Conc 30.9 g/dL (32-36); Mean Corpuscular Hemoglobin 28.8 pg (27.0-31.0); Mean Corpuscular Volume 93.3 fL (78.0-102.0); Mean Platelet Volume 10.4 fl (8.7-11.0); Platelet Count Result 155 K/mm3 (150-420); Red Blood Count 2.67 M/mm3 (4.70-6.10); Red Cell Distribution Width 17.6 % (11.6-14.4); White Blood Count 3.5 K/mm3 (4.8-10.8)
[2024-03-22 08:22] LABS: Alanine Aminotransferase 28 U/L (16-63); Alkaline Phosphatase 184 U/L (46-116); Anion Gap 9 mmol/L (4-12); Aspartate Amino Transferase 34 U/L (15-37); Bilirubin,Total 0.5 mg/dL (0.00-1.00); Blood Urea Nitrogen 9 mg/dL (7-18); Calcium 7.5 mg/dL (8.5-10.1); Carbon Dioxide 26 mmol/L (21-32); Chloride 109 mmol/L (98-108); Estimated CRCL calculation 77 ml/min; Estimated Glomerular Filt Rate > 60; Glucose 96 mg/dL (70-99); Osmolality Calculated 296 mOsm/kg (285-295); Sodium 144 mmol/L (136-145); Total Protein 4.8 g/dL (6.4-8.2)
[2024-03-22] MEDS: SACUBITRIL/VALSARTAN 24-26 MG TABLET 1 TAB PO ×2 (08:38→20:10)
[2024-03-22] MEDS: POTASSIUM CHLORIDE 20 MEQ ER TABLET 40 MEQ PO ×2 (08:39→17:40)
[2024-03-22] MEDS: THERAPEUTIC MULTIVITAMINS/MINERALS TAB (*BKC) 1 TABLET PO (08:39)
[2024-03-22] MEDS: FAMOTIDINE 10 MG TABLET PO (08:40)
[2024-03-22] MEDS: FUROSEMIDE 20 MG TABLET PO (08:40)
[2024-03-22] MEDS: SIMETHICONE 80 MG TAB.CHEW PO ×4 (08:40→20:10)
[2024-03-22 08:41] VITALS: PULSE 70
[2024-03-22] MEDS: carvediloL 1.56 MG TABLET PO ×2 (08:41→20:10)
[2024-03-22] MEDS: FOLIC ACID 1 MG TABLET PO (08:42)
[2024-03-22] MEDS: NEOMYCIN/POLYMYXIN/BACITRACIN OINTMENT 15 GM TUBE 1 APPLIC TOPICAL (08:42)
--- NOTE | 2024-03-22 11:17 | PC.NURSE ---
Patient going to radiology for CT with contrast this afternoon. 20g IV started in R hand x 1 attempt. Patient tolerated well. Patient to be NPO for lunch.
[2024-03-22] MEDS: SACCHAROMYCES BOULARDII 250 MG CAPSULE PO ×2 (12:31→17:39)
--- NOTE | 2024-03-22 13:02 | PCOTNOTE ---
Pt. not seen this morning due to being taken for a cat scan. -SM 03/22/24
--- NOTE | 2024-03-22 15:44 | PC.NURSE ---
[place] to surgical sites removed by assembly instructions writer. 30 jarvis removed and all were intact. 7th staple from the top of the most proximal incision required more effort, as it had grown into the skin. Patient tolerated well. Minimal bleeding noted at a couple of sites where the staple ends came out. Incisions well approximated with minimal redness and no s/s infection.
[2024-03-22 16:00] VITALS: BP 105/58; PULSE 70; RESP 16; TEMP 36.8; O2SAT 97
[2024-03-22 20:00] VITALS: PULSE 71; RESP 16; O2SAT 97
[2024-03-22 20:10] VITALS: PULSE 71
[2024-03-23] VITALS: BP 101/49; PULSE 71; RESP 18; TEMP 36.9; O2SAT 96
[2024-03-23 05:26] LABS: Potassium 4.3 mmol/L (3.5-5.1)
[2024-03-23] MEDS: oxyCODONE/ACETAMINOPHEN (*CRX) 10-325 MG TABLET 1 TAB PO ×3 (06:25→20:53)
[2024-03-23] MEDS: LOPERAMIDE HCL 2 MG CAPSULE PO (06:25)
[2024-03-23 08:00] VITALS: BP 97/73; PULSE 95; RESP 18; TEMP 36.8; O2SAT 98
[2024-03-23 08:38] VITALS: PULSE 95
[2024-03-23] MEDS: SACUBITRIL/VALSARTAN 24-26 MG TABLET 1 TAB PO ×2 (08:38→20:51)
[2024-03-23] MEDS: FUROSEMIDE 20 MG TABLET PO (08:38)
[2024-03-23] MEDS: POTASSIUM CHLORIDE 20 MEQ ER TABLET 40 MEQ PO ×2 (08:38→17:47)
[2024-03-23] MEDS: NEOMYCIN/POLYMYXIN/BACITRACIN OINTMENT 15 GM TUBE 1 APPLIC TOPICAL (08:38)
[2024-03-23] MEDS: FAMOTIDINE 10 MG TABLET PO (08:38)
[2024-03-23] MEDS: SIMETHICONE 80 MG TAB.CHEW PO ×4 (08:38→20:51)
[2024-03-23] MEDS: FOLIC ACID 1 MG TABLET PO (08:38)
[2024-03-23] MEDS: THERAPEUTIC MULTIVITAMINS/MINERALS TAB (*BKC) 1 TABLET PO (08:38)
[2024-03-23] MEDS: carvediloL 1.56 MG TABLET PO ×2 (08:38→20:51)
[2024-03-23] MEDS: SACCHAROMYCES BOULARDII 250 MG CAPSULE PO ×3 (08:38→17:48)
--- NOTE | 2024-03-23 08:46 | PM.EVENT ---
Event Note Event Note Event Note: CT ABD showin. Diarrhea with mild wall thickening and surrounding inflammatory stranding at the rectum and distal sigmoid colon consistent with a distal proctocolitis. 2. Cholelithiasis. 2. Nonobstructing right nephrolithiasis. 4. Increasing small bilateral posterior layering pleural effusions with atelectasis versus chronic lung disease in the dependent lower lungs. 5. Unchanged 3.6 cm fusiform infrarenal abdominal aortic aneurysm. 6. 8.5 x 3.4 cm fat and fluid collection along side a recent internally fixed intertrochanteric/subtrochanteric fracture of the proximal left femur most likely representing a posterior neck/postsurgical hematoma although differential would include abscess in the appropriate clinical setting. 7. Small fat-containing left inguinal hernia. and There is some mild wall thickening in the sigmoid colon at the rectum along with some stranding in the perirectal fat suspicious for a distal proctocolitis Will treat with 7 days doxycycline for proctocolitis, patient with normal WBC and afebrile most consistent with hematoma
[2024-03-23] MEDS: DOXYCYCLINE HYCLATE 100 MG TABLET PO ×2 (10:13→20:53)
[2024-03-23] MEDS: DIPHENOXYLATE/ATROPINE (*CRX) 2.5 MG TABLET 2 TABLET PO (13:08)
[2024-03-23 16:00] VITALS: BP 104/62; PULSE 86; RESP 20; TEMP 36.6; O2SAT 96
[2024-03-23 20:51] VITALS: PULSE 70
[2024-03-24] VITALS: BP 108/58; PULSE 62; RESP 16; TEMP 37.1; O2SAT 97
[2024-03-24] MEDS: oxyCODONE/ACETAMINOPHEN (*CRX) 10-325 MG TABLET 1 TAB PO ×2 (06:22→20:59)
[2024-03-24] MEDS: LOPERAMIDE HCL 2 MG CAPSULE PO (06:22)
[2024-03-24 08:00] VITALS: BP 101/60; PULSE 76; RESP 18; TEMP 36.8; O2SAT 97
[2024-03-24] MEDS: POTASSIUM CHLORIDE 20 MEQ ER TABLET 40 MEQ PO ×2 (10:07→17:00)
[2024-03-24] MEDS: SACCHAROMYCES BOULARDII 250 MG CAPSULE PO ×3 (10:07→17:00)
[2024-03-24 10:08] VITALS: PULSE 80
[2024-03-24] MEDS: FUROSEMIDE 20 MG TABLET PO (10:08)
[2024-03-24] MEDS: DOXYCYCLINE HYCLATE 100 MG TABLET PO ×2 (10:08→20:59)
[2024-03-24] MEDS: FOLIC ACID 1 MG TABLET PO (10:08)
[2024-03-24] MEDS: SACUBITRIL/VALSARTAN 24-26 MG TABLET 1 TAB PO ×2 (10:08→20:59)
[2024-03-24] MEDS: THERAPEUTIC MULTIVITAMINS/MINERALS TAB (*BKC) 1 TABLET PO (10:08)
[2024-03-24] MEDS: carvediloL 1.56 MG TABLET PO ×2 (10:08→20:58)
[2024-03-24] MEDS: DIPHENOXYLATE/ATROPINE (*CRX) 2.5 MG TABLET 2 TABLET PO ×2 (10:08→20:58)
[2024-03-24] MEDS: SIMETHICONE 80 MG TAB.CHEW PO ×4 (10:08→20:59)
[2024-03-24] MEDS: FAMOTIDINE 10 MG TABLET PO (10:08)
[2024-03-24] MEDS: NEOMYCIN/POLYMYXIN/BACITRACIN OINTMENT 15 GM TUBE 1 APPLIC TOPICAL (10:09)
[2024-03-24] MEDS: DICYCLOMINE HCL 10 MG CAPSULE 20 MG PO (11:06)
[2024-03-24 16:00] VITALS: BP 118/63; PULSE 70; RESP 17; TEMP 37; O2SAT 94
[2024-03-24 20:58] VITALS: PULSE 66
[2024-03-25] VITALS: BP 112/69; PULSE 66; RESP 15; TEMP 36.8; O2SAT 96
[2024-03-25 06:05] LABS: Potassium 4.1 mmol/L (3.5-5.1)
[2024-03-25 08:00] VITALS: BP 111/53; PULSE 68; RESP 18; TEMP 36.7; O2SAT 96
[2024-03-25 08:03] VITALS: PULSE 68
[2024-03-25] MEDS: carvediloL 1.56 MG TABLET PO ×2 (08:03→20:27)
[2024-03-25] MEDS: THERAPEUTIC MULTIVITAMINS/MINERALS TAB (*BKC) 1 TABLET PO (08:03)
[2024-03-25] MEDS: FOLIC ACID 1 MG TABLET PO (08:03)
[2024-03-25] MEDS: POTASSIUM CHLORIDE 20 MEQ ER TABLET 40 MEQ PO ×2 (08:03→16:37)
[2024-03-25] MEDS: SACCHAROMYCES BOULARDII 250 MG CAPSULE PO ×3 (08:03→16:37)
[2024-03-25] MEDS: oxyCODONE/ACETAMINOPHEN (*CRX) 10-325 MG TABLET 1 TAB PO ×2 (08:03→16:37)
[2024-03-25] MEDS: DOXYCYCLINE HYCLATE 100 MG TABLET PO ×2 (08:03→20:27)
[2024-03-25] MEDS: FAMOTIDINE 10 MG TABLET PO (08:03)
[2024-03-25] MEDS: SIMETHICONE 80 MG TAB.CHEW PO ×4 (08:03→20:27)
[2024-03-25] MEDS: SACUBITRIL/VALSARTAN 24-26 MG TABLET 1 TAB PO ×2 (08:03→20:27)
[2024-03-25] MEDS: FUROSEMIDE 20 MG TABLET PO (08:03)
[2024-03-25] MEDS: NEOMYCIN/POLYMYXIN/BACITRACIN OINTMENT 15 GM TUBE 1 APPLIC TOPICAL (08:09)
--- NOTE | 2024-03-25 10:52 | PM.EVENT ---
Event Note Event Note Event Note: Patient has bilateral heel pressure ulcer intact skin non-blanchable with mild pain and pressure wound to sacral area. Request patient float heels, add heal protectors and consult to wound. Ordered Q2 turns and Allevyn to sacral area.
[2024-03-25] MEDS: LOPERAMIDE HCL 2 MG CAPSULE PO (12:38)
[2024-03-25 15:54] VITALS: BP 111/60; PULSE 71; RESP 17; TEMP 36.8; O2SAT 97
[2024-03-25] MEDS: DIPHENOXYLATE/ATROPINE (*CRX) 2.5 MG TABLET 2 TABLET PO (16:37)
[2024-03-25 20:27] VITALS: PULSE 71
[2024-03-25 23:34] VITALS: BP 117/53; PULSE 84; RESP 20; TEMP 36.7; O2SAT 97
[2024-03-26 08:00] VITALS: BP 112/58; PULSE 58; RESP 16; TEMP 36.8; O2SAT 94
[2024-03-26 08:03] LABS: Testosterone Total 6 ng/dL (250-1100)
[2024-03-26 09:44] VITALS: PULSE 65
[2024-03-26] MEDS: POTASSIUM CHLORIDE 20 MEQ ER TABLET 40 MEQ PO ×2 (09:44→16:24)
[2024-03-26] MEDS: carvediloL 1.56 MG TABLET PO ×2 (09:44→20:22)
[2024-03-26] MEDS: SIMETHICONE 80 MG TAB.CHEW PO ×4 (09:45→20:22)
[2024-03-26] MEDS: THERAPEUTIC MULTIVITAMINS/MINERALS TAB (*BKC) 1 TABLET PO (09:45)
[2024-03-26] MEDS: SACCHAROMYCES BOULARDII 250 MG CAPSULE PO ×3 (09:45→16:24)
[2024-03-26] MEDS: FOLIC ACID 1 MG TABLET PO (09:45)
[2024-03-26] MEDS: FAMOTIDINE 10 MG TABLET PO (09:45)
[2024-03-26] MEDS: DOXYCYCLINE HYCLATE 100 MG TABLET PO ×2 (09:45→20:22)
[2024-03-26] MEDS: SACUBITRIL/VALSARTAN 24-26 MG TABLET 1 TAB PO ×2 (09:45→20:22)
[2024-03-26] MEDS: NEOMYCIN/POLYMYXIN/BACITRACIN OINTMENT 15 GM TUBE 1 APPLIC TOPICAL (09:46)
[2024-03-26] MEDS: FUROSEMIDE 20 MG TABLET PO (09:46)
[2024-03-26 15:50] VITALS: BP 127/76; PULSE 82; RESP 20; TEMP 36.8; O2SAT 97
--- NOTE | 2024-03-26 17:12 | PC.NURSE ---
Pt reports not feeling well tonight and that is stomach is hurting. Noted hyperactive B.S. and soft diarrhea in diaper when turned and postioned. Pt c/o abd pain and bloating. Abd round and firm, reports his abd has been extended and bloated since the surgery and he has had CT's. Pt not wanting to eat uch tonight, given pudding and BOOST per wifes request.
[2024-03-26] MEDS: oxyCODONE/ACETAMINOPHEN (*CRX) 10-325 MG TABLET 1 TAB PO (20:21)
[2024-03-26 20:22] VITALS: PULSE 67
[2024-03-27] VITALS: BP 110/68; PULSE 65; RESP 18; TEMP 36.6; O2SAT 97
[2024-03-27] MEDS: DIPHENOXYLATE/ATROPINE (*CRX) 2.5 MG TABLET 2 TABLET PO (04:19)
[2024-03-27 04:53] LABS: Norovirus RNA PCR, Stool NOT DETECTED
[2024-03-27 08:00] VITALS: BP 113/62; PULSE 72; RESP 18; TEMP 36.6; O2SAT 96
--- NOTE | 2024-03-27 08:10 | P.PNIM_ITS ---
Progress Note: A&P Assessment and Plan (1) Proctocolitis: Code(s): K52.9 - Noninfective gastroenteritis and colitis, unspecified Status: Acute Assessment and Plan: * CT ABD: Diarrhea with mild wall thickening and surrounding inflammatory stranding at the rectum and distal sigmoid colon consistent with a distal proctocolitis. * Doxycycline * Still with distention and tenderness * F/U CT ABD (2) Diarrhea: Code(s): R19.7 - Diarrhea, unspecified Status: Acute Assessment and Plan: * continue Imodium * Will start simethicone 80 mg p.o. q.i.d. for gas pain 03/20 * will check C diff today 03/27: * C diff and stool cultures negative * CT ABD with proctocolitis * dicyclomine add patient with GI spasms * Diarrhea improving * doxycycline * added rifaximin d/c simethicone (3) Weakness: Code(s): R53.1 - Weakness Status: Acute Assessment and Plan: * continue PT and OT 03/20 * no change to current treatment plan (4) Pressure injury: Code(s): L89.90 - Pressure ulcer of unspecified site, unspecified stage Status: Acute Assessment and Plan: * pressure injury to bilateral heels and sacral area * offload on heels * Q 2 turns * Allevyn to areas * heal protectors * wound consult placed (5) Closed intertrochanteric fracture of femur: Qualifiers: Encounter type: initial encounter Fracture alignment: displaced Laterality: left Qualified Code(s): S72.142A - Displaced intertrochanteric fracture of left femur, initial encounter for closed fracture Code(s): S72.143A - Displaced intertrochanteric fracture of unspecified femur, initial encounter for closed fracture Status: Acute Assessment and Plan: * status post ORIF of left femur intratrochanteric fracture with cephalomedullary nail by Dr. Brenner * continue heparin b.i.d. for DVT prophylaxis * continue PT and OT 03/20 * heparin currently on hold due to hematuria yesterday, still pink tinged urine today Will continue to hold heparin for now * continue PT and OT (6) CHF (congestive heart failure): Code(s): I50.9 - Heart failure, unspecified Status: Acute Assessment and Plan: * continue Catarina Lopez Entresto 03/20 * no change to current treatment plan (7) Cellulitis: Code(s): L03.90 - Cellulitis, unspecified Status: Resolved Assessment and Plan: * currently on Augmentin and linezolid * continue Vazquez catheter 03/20 * therapy complete Plan Code status: Full code per patient DVT prophylaxis: Eliquis Stress ulcer prophylaxis: NA PT/OT notes: REHAB/SWING BED Disposition: Patient continues admission to [facility] for continued rehabilitation after extended hospitalization and deconditioned state. Patient lives at home with and plan is to return home when medically stable. Time Spent With Patient Time with patient: 15 - 25 minutes Subjective Date/time seen: 03/27/24 08:10 Interval history: Patient is an 83-year-old male who was admitted for rehabilitation after hospitalization for hip fracture continues to have abdominal pain CT abdomen showing proctocolitis 03/27/24: Patient still with abdominal discomfort hyperactive bowel sounds heard throughout follow-up CT abdomen pending patient still with diarrhea but frequency slowing down. otherwise patient with no other complaints was at bedside and updated. he denied any chest pain, shortness a breath, nausea, or vomiting abdomen still distended but was softer today. Review of Systems Review of Systems: All systems reviewed & are unremarkable except as noted in HPI and below Exam Narrative: General: In no acute distress, well nourished Cardiac: Normal S1 and S2. No murmur, gallops or friction rubs, peripheral pulses intact. Respiratory: Lungs clear to auscultation, no adventitious lung sounds, currently on room air Gastrointestinal: soft, non-distended, non-tender, hyperactive bowel sounds. reports gas discomfort and diarrhea : vazquez catheter in place draining adam urine and pink tinged in the tubing, scrotal edema Extremities: moves all extremities well, no edema Skin: Left hip dressing in place Neuro: Alert and oriented x4 Objective Data Vital Signs Vital Signs: Vital Signs - 24 hr 03/26/24 09:44 03/26/24 15:50 03/26/24 20:22 Temperature 98.2 F Pulse Rate 65 82 67 Respiratory Rate 20 Blood Pressure 127/76 Pulse Oximetry 97 Oxygen Delivery Room Air 03/27/24 00:00 Temperature 97.9 F Pulse Rate 65 Respiratory Rate 18 Blood Pressure 110/68 Pulse Oximetry 97 Oxygen Delivery Room Air Intake/Output Intake/Output: Intake & Output 03/24/24 03/25/24 03/26/24 03/27/24 23:59 23:59 23:59 23:59 Intake Total 1890 1710 930 150 Output Total 1650 1100 1125 400 Balance 240 610 195 250 Meds/Results Medications: Active Medications Generic Name Dose Route Start Last Admin Trade Name Freq PRN Reason Stop Dose Admin Carvedilol 1.56 mg 03/17/24 21:00 03/26/24 20:22 Carvedilol 1.56 Mg Tablet PO 1.56 mg Q12HR YARA Administration Dicyclomine HCl 20 mg 03/24/24 10:54 03/24/24 11:06 Dicyclomine Hcl 10 Mg Capsule PO 20 mg QID PRN Administration Abdominal Cramping Diphenoxylate HCl/Atropine 2 tablet 03/23/24 11:27 03/27/24 04:19 Diphenoxylate/Atropine (*Crx) 2.5 Mg Tablet PO 2 tablet BID PRN Administration Diarrhea Doxycycline Hyclate 100 mg 03/23/24 09:00 03/26/24 20:22 Doxycycline Hyclate 100 Mg Tablet PO 100 mg Q12HR YARA Administration Famotidine 10 mg 03/17/24 09:00 03/26/24 09:45 Famotidine 10 Mg Tablet PO 10 mg DAILY YARA Administration Folic Acid 1 mg 03/17/24 09:00 03/26/24 09:45 Folic Acid 1 Mg Tablet PO 1 mg DAILY YARA Administration Furosemide 20 mg 03/17/24 09:00 03/26/24 09:46 Furosemide 20 Mg Tablet PO 20 mg QAM YARA Administration Hyoscyamine 0.125 mg 03/16/24 18:42 03/18/24 16:45 Hyoscyamine Sulfate 0.125 Mg Tablet SUBLINGUAL 0.125 mg QID PRN Administration dyspepsia Loperamide HCl 2 mg 03/20/24 11:33 03/25/24 12:38 Loperamide Hcl 2 Mg Capsule PO 2 mg PRN PRN Administration Diarrhea Miscellaneous Information 1 each 03/25/24 00:01 Percocet Will Be Discontinued 03-26-24 If Not Renewed XX 04/24/24 00:00 CLARIFY YARA Multivitamins/Calcium 1 tablet 03/17/24 09:00 03/26/24 09:45 Therapeutic Multivitamins/Minerals Tab (*Bkc) PO 1 tablet DAILY YARA Administration Neomycin/Polymyxin/Bacitracin 1 applic 03/21/24 12:00 03/26/24 09:46 Neomycin/Polymyxin/Bacitracin Ointment 15 Gm Tube TOPICAL 1 applic QAM YARA Administration Oxycodone/Acetaminophen 1 tab 03/16/24 18:42 03/26/24 20:21 Oxycodone/Acetaminophen (*Crx) 10-325 Mg Tablet PO 1 tab Q6H PRN Administration Pain Rated 7-10 Potassium Chloride 40 meq 03/20/24 17:00 03/26/24 16:24 Potassium Chloride 20 Meq Er Tablet PO 40 meq BIDWM YARA Administration Saccharomyces Boulardii 250 mg 03/22/24 13:00 03/26/24 16:24 Saccharomyces Boulardii 250 Mg Capsule PO 250 mg TID YARA Administration Sacubitril/Valsartan 1 tab 03/16/24 21:00 03/26/24 20:22 Sacubitril/Valsartan 24-26 Mg Tablet PO 1 tab Q12HR YARA Administration Simethicone 80 mg 03/17/24 13:15 03/26/24 20:22 Simethicone 80 Mg Tab.Chew PO 80 mg QID YARA Administration Radiology Results: ITS Impressions Abdomen/Pelvis CT 03/22/24 12:21 IMPRESSION: 1. Diarrhea with mild wall thickening and surrounding inflammatory stranding at the rectum and distal sigmoid colon consistent with a distal proctocolitis. 2. Cholelithiasis. 2. Nonobstructing right nephrolithiasis. 4. Increasing small bilateral posterior layering pleural effusions with atelectasis versus chronic lung disease in the dependent lower lungs. 5. Unchanged 3.6 cm fusiform infrarenal abdominal aortic aneurysm. 6. 8.5 x 3.4 cm fat and fluid collection along side a recent internally fixed intertrochanteric/subtrochanteric fracture of the proximal left femur most likely representing a posterior neck/postsurgical hematoma although differential would include abscess in the appropriate clinical setting. 7. Small fat-containing left inguinal hernia. Labs Labs: Laboratory Results - last 24 hr 03/23/24 02:26 Stool Norovirus (PCR) Not detected Quality VTE Prophylaxis VTE prophylaxis: pharmacologic ordered -Patient's previous records reviewed on admission -ER notes reviewed in detail on admission -discussed all findings and current treatment plan with patient/Family/POA -Consultations reviewed for recommendations -Patient's disposition for safe discharge discussed with oil field caser Dictation performed by [employer] direct speech recognition software, therefore machine castings plasterer variants and typographical errors may occur. Hospitalist [facility] Advance Care Plan I have confirmed that the patient's Advanced Care Plan is present, code status is documented, or surrogate decision maker is listed in patient medical record.: Yes Medication Reconciliation I have utilized all available resources to obtain, update and review the patients current medications (includes all prescriptions, OTC, herbals, cannabis, and nutritional supplements).: Yes The patient is not eligible for med reconciliation; the patient is in a emergent medical situation where delaying treatment would jeopardize the patients health.: No
[2024-03-27] MEDS: SIMETHICONE 80 MG TAB.CHEW PO (09:52)
[2024-03-27] MEDS: FAMOTIDINE 10 MG TABLET PO (09:52)
[2024-03-27 09:53] VITALS: PULSE 74
[2024-03-27] MEDS: POTASSIUM CHLORIDE 20 MEQ ER TABLET 40 MEQ PO ×2 (09:53→17:30)
[2024-03-27] MEDS: NEOMYCIN/POLYMYXIN/BACITRACIN OINTMENT 15 GM TUBE 1 APPLIC TOPICAL (09:53)
[2024-03-27] MEDS: FUROSEMIDE 20 MG TABLET PO (09:53)
[2024-03-27] MEDS: carvediloL 1.56 MG TABLET PO ×2 (09:53→20:56)
[2024-03-27] MEDS: FOLIC ACID 1 MG TABLET PO (09:53)
[2024-03-27] MEDS: THERAPEUTIC MULTIVITAMINS/MINERALS TAB (*BKC) 1 TABLET PO (09:53)
[2024-03-27] MEDS: SACCHAROMYCES BOULARDII 250 MG CAPSULE PO ×3 (09:53→17:30)
[2024-03-27] MEDS: DOXYCYCLINE HYCLATE 100 MG TABLET PO ×2 (09:53→20:57)
[2024-03-27] MEDS: SACUBITRIL/VALSARTAN 24-26 MG TABLET 1 TAB PO ×2 (09:53→20:57)
[2024-03-27] MEDS: rifAXIMin 550 MG TABLET PO ×2 (11:26→20:56)
[2024-03-27] MEDS: oxyCODONE/ACETAMINOPHEN (*CRX) 10-325 MG TABLET 1 TAB PO (12:10)
[2024-03-27] MEDS: DICYCLOMINE HCL 10 MG CAPSULE 20 MG PO ×2 (12:11→17:30)
[2024-03-27 12:16] LABS: Hematocrit 33.6 % (37.0-46.0); Mean Corpuscular HGB Conc 29.8 g/dL (32-36); Mean Corpuscular Hemoglobin 28.2 pg (27.0-31.0); Mean Corpuscular Volume 94.9 fL (78.0-102.0); Mean Platelet Volume 11.7 fl (8.7-11.0); Platelet Count Result 165 K/mm3 (150-420); Red Blood Count 3.54 M/mm3 (4.70-6.10); Red Cell Distribution Width 17.2 % (11.6-14.4); White Blood Count 4.7 K/mm3 (4.8-10.8)
[2024-03-27 12:43] LABS: Alanine Aminotransferase 20 U/L (16-63); Albumin Level 2.6 g/dL (3.4-5.0); Alkaline Phosphatase 227 U/L (46-116); Anion Gap 8 mmol/L (4-12); Aspartate Amino Transferase 36 U/L (15-37); Bilirubin,Total 0.6 mg/dL (0.00-1.00); Blood Urea Nitrogen 11 mg/dL (7-18); Carbon Dioxide 23 mmol/L (21-32); Chloride 108 mmol/L (98-108); Glucose 113 mg/dL (70-99); Osmolality Calculated 288 mOsm/kg (285-295); Potassium 4.2 mmol/L (3.5-5.1); Sodium 139 mmol/L (136-145); Total Protein 5.8 g/dL (6.4-8.2)
[2024-03-27 12:48] LABS: Calcium 8.2 mg/dL (8.5-10.1); Estimated CRCL calculation 77 ml/min; Estimated Glomerular Filt Rate > 60
[2024-03-27 16:00] VITALS: BP 113/71; PULSE 74; RESP 20; TEMP 36.6; O2SAT 97
[2024-03-27 20:56] VITALS: PULSE 67
[2024-03-28] VITALS: BP 107/55; PULSE 58; RESP 16; TEMP 36.9; O2SAT 97
[2024-03-28] MEDS: LOPERAMIDE HCL 2 MG CAPSULE PO ×2 (03:25→08:59)
[2024-03-28 08:00] VITALS: BP 90/50; PULSE 60; RESP 18; TEMP 36.6; O2SAT 96
[2024-03-28] MEDS: SACUBITRIL/VALSARTAN 24-26 MG TABLET 1 TAB PO ×2 (08:45→21:59)
[2024-03-28] MEDS: FOLIC ACID 1 MG TABLET PO (08:45)
[2024-03-28] MEDS: FAMOTIDINE 10 MG TABLET PO (08:45)
[2024-03-28] MEDS: rifAXIMin 550 MG TABLET PO ×2 (08:45→21:58)
[2024-03-28] MEDS: POTASSIUM CHLORIDE 20 MEQ ER TABLET 40 MEQ PO ×2 (08:45→17:58)
[2024-03-28] MEDS: THERAPEUTIC MULTIVITAMINS/MINERALS TAB (*BKC) 1 TABLET PO (08:45)
[2024-03-28] MEDS: HYOSCYAMINE SULFATE 0.125 MG TABLET SUBLINGUAL ×3 (08:45→21:59)
[2024-03-28] MEDS: DICYCLOMINE HCL 10 MG CAPSULE 20 MG PO ×3 (08:47→17:59)
[2024-03-28] MEDS: oxyCODONE/ACETAMINOPHEN (*CRX) 10-325 MG TABLET 1 TAB PO ×3 (08:47→21:59)
[2024-03-28] MEDS: SACCHAROMYCES BOULARDII 250 MG CAPSULE PO ×3 (08:47→17:59)
[2024-03-28] MEDS: FUROSEMIDE 20 MG TABLET PO (08:47)
[2024-03-28] MEDS: DOXYCYCLINE HYCLATE 100 MG TABLET PO ×2 (08:59→21:59)
[2024-03-28] MEDS: NEOMYCIN/POLYMYXIN/BACITRACIN OINTMENT 15 GM TUBE 1 APPLIC TOPICAL (08:59)
[2024-03-28] MEDS: DIPHENOXYLATE/ATROPINE (*CRX) 2.5 MG TABLET 2 TABLET PO (13:41)
[2024-03-28 16:00] VITALS: BP 104/62; PULSE 74; RESP 16; TEMP 36.3; O2SAT 97
[2024-03-28 20:25] VITALS: PULSE 72; RESP 16; O2SAT 97
[2024-03-28 21:58] VITALS: PULSE 72
[2024-03-28] MEDS: carvediloL 1.56 MG TABLET PO (21:58)
[2024-03-29] VITALS: BP 122/42; PULSE 70; RESP 20; TEMP 36.4; O2SAT 97
--- NOTE | 2024-03-29 01:00 | PC.NURSE ---
Pt incontinent of a small amount of mucous, brown stool. Upon turning pt, he vomited a large amount of watery brown emesis. Pt was cleaned and bed linens changed.
[2024-03-29 02:50] VITALS: BP 120/68; PULSE 74; RESP 20; TEMP 36.4; O2SAT 95
--- NOTE | 2024-03-29 02:54 | PC.NURSE ---
Elizabeth Tracey notified of x2 large emesis of brown fluid, vitals reported, order received for ng tube and iv zofran at this time
[2024-03-29] MEDS: ONDANSETRON INJ 4 MG/2 ML VIAL IV PUSH ×2 (03:18→09:36)
--- NOTE | 2024-03-29 03:20 | PC.NURSE ---
Attempted to put an NG tube in but continued to get resistance and pressure pushing the tube out. Pt became upset and didnt want to continue anymore with the procedure, so staff stopped. Pt given Zofran 4 ml IVP to control nausea and vomiting.
--- NOTE | 2024-03-29 05:20 | PC.NURSE ---
Pt dozing quietly in bed; no signs of discomfort noted.
--- NOTE | 2024-03-29 06:10 | PC.NURSE ---
Pt sitting in the chair quietly and we discussed putting the NG tube in again. Pt stated 'It was terrible and I dont want to go through that again !' No other concerns at this time.
[2024-03-29 08:00] VITALS: BP 103/48; PULSE 73; RESP 17; TEMP 36.3; O2SAT 96
[2024-03-29] MEDS: NEOMYCIN/POLYMYXIN/BACITRACIN OINTMENT 15 GM TUBE 1 APPLIC TOPICAL (08:00)
--- NOTE | 2024-03-29 08:33 | P.PNIM_ITS ---
Progress Note: A&P Assessment and Plan (1) Adynamic ileus: Code(s): K56.0 - Paralytic ileus Status: Acute Assessment and Plan: Patient with continued ABD pain, ABD distention, diarrhea, hyperactive bowels, and new onset vomiting * CT ABD 2/2 Air and fluid opacification of the distal colon and rectum.No obstruction. * NG ordered for decompression intermittent low suction * KUB: adynamic ileus * Will resume simethicone 80 mg p.o. q.i.d. for gas pain * NPO * IV fluids maintenance Monitor for fluid overload HX of HF * KUB daily for resolution * Holding some medication, substituting for IV if I can or per tube (2) Vomiting: Code(s): R11.10 - Vomiting, unspecified Status: Acute (3) Diarrhea: Code(s): R19.7 - Diarrhea, unspecified Status: Acute Assessment and Plan: * continue Imodium * Will start simethicone 80 mg p.o. q.i.d. for gas pain 03/20 * will check C diff today 03/27: * C diff and stool cultures negative * CT ABD with proctocolitis * dicyclomine add patient with GI spasms * Diarrhea improving * doxycycline * added rifaximin d/c simethicone 03/29: * C-diff negative * Stool culture negative (4) Weakness: Code(s): R53.1 - Weakness Status: Acute Assessment and Plan: * continue PT and OT 03/20 * no change to current treatment plan (5) Pressure injury: Code(s): L89.90 - Pressure ulcer of unspecified site, unspecified stage Status: Acute Assessment and Plan: * pressure injury to bilateral heels and sacral area * offload on heels * Q 2 turns * Allevyn to areas * heal protectors * wound consult placed (6) Closed intertrochanteric fracture of femur: Qualifiers: Encounter type: initial encounter Fracture alignment: displaced Laterality: left Qualified Code(s): S72.142A - Displaced intertrochanteric fracture of left femur, initial encounter for closed fracture Code(s): S72.143A - Displaced intertrochanteric fracture of unspecified femur, initial encounter for closed fracture Status: Acute Assessment and Plan: * status post ORIF of left femur intratrochanteric fracture with cephalomedullary nail by Dr. Brenner * continue heparin b.i.d. for DVT prophylaxis * continue PT and OT 03/20 * heparin currently on hold due to hematuria yesterday, still pink tinged urine today Will continue to hold heparin for now * continue PT and OT (7) CHF (congestive heart failure): Code(s): I50.9 - Heart failure, unspecified Status: Acute Assessment and Plan: * continue Catarina Lopez Entresto 03/20 * no change to current treatment plan (8) Cellulitis: Code(s): L03.90 - Cellulitis, unspecified Status: Resolved Assessment and Plan: * currently on Augmentin and linezolid * continue Vazquez catheter 03/20 * therapy complete (9) Proctocolitis: Code(s): K52.9 - Noninfective gastroenteritis and colitis, unspecified Status: Acute Assessment and Plan: * CT ABD: Diarrhea with mild wall thickening and surrounding inflammatory stranding at the rectum and distal sigmoid colon consistent with a distal proctocolitis. * Doxycycline * Still with distention and tenderness * F/U CT ABD COMPLETED treatment Plan Code status: Full code per patient DVT prophylaxis: Eliquis Stress ulcer prophylaxis: NA PT/OT notes: REHAB/SWING BED Disposition: Patient continues admission to [facility] for continued rehabilitation after extended hospitalization and deconditioned state. patient continued with abdominal distention abdominal pain had to place NG tube for decompression after multiple episodes of vomiting KUB and labs to follow. Patient lives at home with and plan is to return home when medically stable. Time Spent With Patient Time with patient: 15 - 25 minutes Subjective Date/time seen: 03/29/24 08:33 Interval history: Patient is an 83-year-old male who was admitted for rehabilitation after hospitalization for hip fracture continues to have abdominal pain CT abdomen showing proctocolitis 03/29/24: Patient with ABD distention and ABD tenderness with continue ABD cramping reported, Hyperactive bowel sounds and continued diarrhea even with medications. Received call overnight that patient started vomiting placed order for NG tube to be placed for decompression but was unsuccessful will re-attempt today. CT ABD on 03/27/24 showed Air and fluid opacification of the distal colon and rectum. No obstruction. KUB today showed adynamic ileus Review of Systems Review of Systems: All systems reviewed & are unremarkable except as noted in HPI and below Exam Narrative: General: In no acute distress, well nourished, Cardiac: Normal S1 and S2. No murmur, gallops or friction rubs, peripheral pu lses intact. Respiratory: Lungs clear to auscultation, no adventitious lung sounds, currently on room air Gastrointestinal: Distention, mild tenderness, hyperactive bowel sounds. reports gas discomfort and diarrhea, NG tube present : vazquez catheter in place draining adam urine and pink tinged in the tubing, scrotal edema Extremities: moves all extremities well, no edema Skin: Left hip dressing in place Neuro: Alert and oriented x4 Objective Data Vital Signs Vital Signs: Vital Signs - 24 hr 03/28/24 16:00 03/28/24 20:25 03/28/24 21:58 Temperature 97.4 F L Pulse Rate 74 72 72 Respiratory Rate 16 16 Blood Pressure 104/62 Pulse Oximetry 97 97 Oxygen Delivery Room Air Room Air 03/29/24 00:00 03/29/24 02:50 Temperature 97.5 F L 97.5 F L Pulse Rate 70 74 Respiratory Rate 20 20 Blood Pressure 122/42 L 120/68 Pulse Oximetry 97 95 Oxygen Delivery Room Air Room Air Intake/Output Intake/Output: Intake & Output 03/26/24 03/27/24 03/28/24 03/29/24 23:59 23:59 23:59 23:59 Intake Total 930 1420 2210 100 Output Total 1125 900 500 150 Balance -683 332 0593 -50 Meds/Results Medications: Active Medications Generic Name Dose Route Start Last Admin Trade Name Freq PRN Reason Stop Dose Admin Carvedilol 1.56 mg 03/17/24 21:00 03/28/24 21:58 Carvedilol 1.56 Mg Tablet PO 1.56 mg Q12HR YARA Administration Dicyclomine HCl 20 mg 03/27/24 13:00 03/28/24 17:59 Dicyclomine Hcl 10 Mg Capsule PO 20 mg TID YARA Administration Diphenoxylate HCl/Atropine 2 tablet 03/28/24 09:46 03/28/24 13:41 Diphenoxylate/Atropine (*Crx) 2.5 Mg Tablet PO 2 tablet Q6HR PRN Administration Diarrhea Doxycycline Hyclate 100 mg 03/23/24 09:00 03/28/24 21:59 Doxycycline Hyclate 100 Mg Tablet PO 03/29/24 21:01 100 mg Q12HR YARA Administration Famotidine 10 mg 03/17/24 09:00 03/28/24 08:45 Famotidine 10 Mg Tablet PO 10 mg DAILY YARA Administration Folic Acid 1 mg 03/17/24 09:00 03/28/24 08:45 Folic Acid 1 Mg Tablet PO 1 mg DAILY YARA Administration Furosemide 20 mg 03/17/24 09:00 03/28/24 08:47 Furosemide 20 Mg Tablet PO 20 mg QAM [facility] Administration Hyoscyamine 0.125 mg 03/16/24 18:42 03/28/24 21:59 Hyoscyamine Sulfate 0.125 Mg Tablet SUBLINGUAL 0.125 mg QID PRN Administration dyspepsia Loperamide HCl 2 mg 03/20/24 11:33 03/28/24 08:59 Loperamide Hcl 2 Mg Capsule PO 2 mg PRN PRN Administration Diarrhea Multivitamins/Calcium 1 tablet 03/17/24 09:00 03/28/24 08:45 Therapeutic Multivitamins/Minerals Tab (*Bkc) PO 1 tablet DAILY [facility] Administration Neomycin/Polymyxin/Bacitracin 1 applic 03/21/24 12:00 03/28/24 08:59 Neomycin/Polymyxin/Bacitracin Ointment 15 Gm Tube TOPICAL 1 applic QAM [facility] Administration Ondansetron HCl 4 mg 03/29/24 03:10 03/29/24 03:18 Ondansetron Inj 4 Mg/2 Ml Vial IV PUSH 4 mg Q4H PRN Administration Nausea And Vomiting Oxycodone/Acetaminophen 1 tab 03/16/24 18:42 03/28/24 21:59 Oxycodone/Acetaminophen (*Crx) 10-325 Mg Tablet PO 1 tab Q6H PRN Administration Pain Rated 7-10 Potassium Chloride 40 meq 03/20/24 17:00 03/28/24 17:58 Potassium Chloride 20 Meq Er Tablet PO 40 meq BIDWM YARA Administration Rifaximin 550 mg 03/27/24 11:05 03/28/24 21:58 Rifaximin 550 Mg Tablet PO 550 mg Q12HR YARA Administration Saccharomyces Boulardii 250 mg 03/22/24 13:00 03/28/24 17:59 Saccharomyces Boulardii 250 Mg Capsule PO 250 mg TID YARA Administration Sacubitril/Valsartan 1 tab 03/16/24 21:00 03/28/24 21:59 Sacubitril/Valsartan 24-26 Mg Tablet PO 1 tab Q12HR YARA Administration Radiology Results: ITS Impressions Abdomen/Pelvis CT 03/27/24 13:18 IMPRESSION: Air and fluid opacification of the distal colon and rectum. No obstruction. Abnormal left adrenal gland for which follow-up contrast enhanced CT or MRI with renal mass protocol is recommended, if the patient is clinically able. Nonobstructing renal calculi. Cholelithiasis. Bilateral pleural effusions with adjacent compressive atelectasis. Quality VTE Prophylaxis VTE prophylaxis: pharmacologic ordered -Patient's previous records reviewed on admission -ER notes reviewed in detail on admission -discussed all findings and current treatment plan with patient/Family/POA -Consultations reviewed for recommendations -Patient's disposition for safe discharge discussed with showcase trimmer Dictation performed by QuickProNotes direct speech recognition software, therefore sheet music salesperson variants and typographical errors may occur. Hospitalist MIPS Advance Care Plan I have confirmed that the patient's Advanced Care Plan is present, code status is documented, or surrogate decision maker is listed in patient medical record.: Yes Medication Reconciliation I have utilized all available resources to obtain, update and review the patients current medications (includes all prescriptions, OTC, herbals, cannabis, and nutritional supplements).: Yes The patient is not eligible for med reconciliation; the patient is in a emergent medical situation where delaying treatment would jeopardize the patients health.: No
[2024-03-29 09:14] LABS: Hemoglobin 9.9 g/dL (12.4-15.3); Mean Corpuscular Hemoglobin 28.4 pg (27.0-31.0); Mean Corpuscular Volume 94.6 fL (78.0-102.0); Mean Platelet Volume 10.1 fl (8.7-11.0); Platelet Count Result 168 K/mm3 (150-420); Red Blood Count 3.49 M/mm3 (4.70-6.10); Red Cell Distribution Width 17.1 % (11.6-14.4); White Blood Count 5.8 K/mm3 (4.8-10.8)
[2024-03-29 09:53] LABS: Alanine Aminotransferase 19 U/L (16-63); Albumin Level 2.6 g/dL (3.4-5.0); Alkaline Phosphatase 216 U/L (46-116); Anion Gap 9 mmol/L (4-12); Aspartate Amino Transferase 27 U/L (15-37); Bilirubin,Total 0.6 mg/dL (0.00-1.00); Blood Urea Nitrogen 17 mg/dL (7-18); Calcium 7.7 mg/dL (8.5-10.1); Carbon Dioxide 24 mmol/L (21-32); Chloride 109 mmol/L (98-108); Estimated CRCL calculation 53 ml/min; Estimated Glomerular Filt Rate > 60; Glucose 114 mg/dL (70-99); Osmolality Calculated 296 mOsm/kg (285-295); Potassium 4.3 mmol/L (3.5-5.1); Sodium 142 mmol/L (136-145); Total Protein 5.7 g/dL (6.4-8.2)
[2024-03-29] MEDS: LIDOCAINE 2% VISC SOLN 15 ML UDC PO (10:51)
--- NOTE | 2024-03-29 11:30 | PC.NURSE ---
Attempted to place NG tube after administration of lidocaine. Unable to completely advance tube. Pt began vomiting with any attempt of advancement. Tube was removed. Pt stated he didn't want to try that again. TELEGRAPH MECHANIC notified.
--- NOTE | 2024-03-29 11:59 | PCOTNOTE ---
Pt. not seen this AM due to increased pain and discomfort in stomach, vomiting the night before, and Xray present in room. -SM
[2024-03-29] MEDS: FAMOTIDINE 20 MG/2 ML VIAL IV PUSH ×2 (12:06→21:10)
[2024-03-29] MEDS: DOXYCYCLINE 100 MG/NS 100 ML 100 MG/100 ML BAG IVPB (12:06)
[2024-03-29] MEDS: LACTATED RINGERS 1,000 ML 75 ML IV CONT (12:07)
--- NOTE | 2024-03-29 13:26 | PC.NURSE ---
Received PSA and Testosterone ordered by Dr. Juaquin Coley at [facility] faxed results to [phone].
[2024-03-29 16:00] VITALS: BP 104/52; PULSE 70; RESP 17; TEMP 37.4; O2SAT 97
[2024-03-29] MEDS: SIMETHICONE 80 MG TAB.CHEW FEED TUBE ×2 (17:30→21:11)
--- NOTE | 2024-03-29 17:32 | PCPTNOTE ---
pt not seen this am due to getting an NG tube placement per nursing.
[2024-03-29] MEDS: DIPHENOXYLATE/ATROPINE (*CRX) 2.5 MG TABLET 2 TABLET PO (21:11)
[2024-03-29 23:53] VITALS: BP 112/53; PULSE 73; RESP 18; TEMP 36.4; O2SAT 98
[2024-03-30] MEDS: DOXYCYCLINE 100 MG/NS 100 ML 100 MG/100 ML BAG IVPB (00:03)
[2024-03-30] MEDS: LACTATED RINGERS 1,000 ML 75 ML IV CONT (04:01)
[2024-03-30] MEDS: DIPHENOXYLATE/ATROPINE (*CRX) 2.5 MG TABLET 2 TABLET PO (06:01)
[2024-03-30 08:00] VITALS: RESP 18; O2SAT 95
[2024-03-30] MEDS: SIMETHICONE 80 MG TAB.CHEW FEED TUBE (08:48)
[2024-03-30] MEDS: SACUBITRIL/VALSARTAN 24-26 MG TABLET 1 TAB FEED TUBE (08:48)
[2024-03-30] MEDS: rifAXIMin 550 MG TABLET PO (08:48)
[2024-03-30] MEDS: FAMOTIDINE 20 MG/2 ML VIAL IV PUSH ×2 (08:49→22:42)
[2024-03-30] MEDS: FUROSEMIDE INJ 20 MG/2 ML VIAL IV PUSH (08:49)
[2024-03-30] MEDS: FOLIC ACID 1 MG TABLET FEED TUBE (08:52)
[2024-03-30] MEDS: NEOMYCIN/POLYMYXIN/BACITRACIN OINTMENT 15 GM TUBE 1 APPLIC TOPICAL (09:00)
[2024-03-30 09:53] LABS: Hematocrit 29.9 % (37.0-46.0); Mean Corpuscular HGB Conc 30.1 g/dL (32-36); Mean Corpuscular Hemoglobin 28.4 pg (27.0-31.0); Mean Corpuscular Volume 94.3 fL (78.0-102.0); Mean Platelet Volume 10.6 fl (8.7-11.0); Platelet Count Result 141 K/mm3 (150-420); Red Blood Count 3.17 M/mm3 (4.70-6.10)
[2024-03-30 10:15] LABS: Alanine Aminotransferase 17 U/L (16-63); Albumin Level 2.4 g/dL (3.4-5.0); Alkaline Phosphatase 189 U/L (46-116); Anion Gap 10 mmol/L (4-12); Aspartate Amino Transferase 30 U/L (15-37); Bilirubin,Total 0.5 mg/dL (0.00-1.00); Blood Urea Nitrogen 12 mg/dL (7-18); Calcium 6.8 mg/dL (8.5-10.1); Carbon Dioxide 24 mmol/L (21-32); Chloride 111 mmol/L (98-108); Estimated CRCL calculation 62 ml/min; Estimated Glomerular Filt Rate > 60; Glucose 111 mg/dL (70-99); Osmolality Calculated 300 mOsm/kg (285-295); Potassium 2.6 mmol/L (3.5-5.1); Sodium 145 mmol/L (136-145); Total Protein 5.4 g/dL (6.4-8.2)
[2024-03-30 10:16] LABS: Magnesium 1.9 mg/dL (1.8-2.4)
[2024-03-30 10:32] LABS: Band Neutrophils Percent 0 % (0-6); Lymphocytes Percent Manual 15 % (18-44); Monocytes Percent Manual 10 % (3-9); Neutrophils Percent Manual 75 % (46-73); Platelet Estimate Adequate (Adequate); Total Cells Counted 100
--- NOTE | 2024-03-30 11:24 | P.PNIM_ITS ---
Progress Note: A&P Assessment and Plan (1) Adynamic ileus: Code(s): K56.0 - Paralytic ileus Status: Acute Assessment and Plan: Patient with continued ABD pain, ABD distention, diarrhea, hyperactive bowels, and new onset vomiting * CT ABD 2/ Air and fluid opacification of the distal colon and rectum.No obstruction. * NG ordered for decompression intermittent low suction * KUB: adynamic ileus * Will resume simethicone 80 mg p.o. q.i.d. for gas pain * NPO * IV fluids maintenance Monitor for fluid overload HX of HF * KUB daily for resolution * Holding some medication, substituting for IV if I can or per tube 03/30 * patient denies any nausea or vomiting * KUB yesterday showed adynamic ileus * patient had multiple bowel movements overnight and is passing gas today. * Recheck KUB shown gaseous distention of the colon, consistent with adynamic ileus. * Continue simethicone * Encourage ambulation * May need transfer to tertiary care for general surgery and possible GI consult due to ileus. * will discontinue IV fluids and start patient back on diet (2) Vomiting: Code(s): R11.10 - Vomiting, unspecified Status: Acute Assessment and Plan: 03/30 * denies any nausea vomiting today (3) Diarrhea: Code(s): R19.7 - Diarrhea, unspecified Status: Acute Assessment and Plan: * continue Imodium * Will start simethicone 80 mg p.o. q.i.d. for gas pain 03/20 * will check C diff today 03/27: * C diff and stool cultures negative * CT ABD with proctocolitis * dicyclomine add patient with GI spasms * Diarrhea improving * doxycycline * added rifaximin d/c simethicone 03/29: * C-diff negative * Stool culture negative 03/30 * continue rifaximin * patient has had quite a few loose stools through the night * will continue probiotic today (4) Weakness: Code(s): R53.1 - Weakness Status: Acute Assessment and Plan: * continue PT and OT 03/20 * no change to current treatment plan 03/30 * continue PT and OT * plan for discharge on Thursday with [facility] (5) Pressure injury: Code(s): L89.90 - Pressure ulcer of unspecified site, unspecified stage Status: Acute Assessment and Plan: * pressure injury to bilateral heels and sacral area * offload on heels * Q 2 turns * Allevyn to areas * heal protectors * wound consult placed 03/30 * continue offload heels * use Mepilex to bilateral heels and sacrum * continue to monitor (6) Closed intertrochanteric fracture of femur: Qualifiers: Encounter type: initial encounter Fracture alignment: displaced Laterality: left Qualified Code(s): S72.142A - Displaced intertrochanteric fracture of left femur, initial encounter for closed fracture Code(s): S72.143A - Displaced intertrochanteric fracture of unspecified femur, initial encounter for closed fracture Status: Acute Assessment and Plan: * status post ORIF of left femur intratrochanteric fracture with cephalomedullary nail by Dr. Brenner * continue heparin b.i.d. for DVT prophylaxis * continue PT and OT 03/20 * heparin currently on hold due to hematuria yesterday, still pink tinged urine today Will continue to hold heparin for now * continue PT and OT 03/30 * continue PT and OT (7) CHF (congestive heart failure): Code(s): I50.9 - Heart failure, unspecified Status: Acute Assessment and Plan: * continue Coreg, Lasix, Entresto 03/20 * no change to current treatment plan 03/30 * changed Lasix to p.o. (8) Cellulitis: Code(s): L03.90 - Cellulitis, unspecified Status: Resolved Assessment and Plan: * currently on Augmentin and linezolid * continue Villeda catheter 03/20 * therapy complete (9) Proctocolitis: Code(s): K52.9 - Noninfective gastroenteritis and colitis, unspecified Status: Acute Assessment and Plan: * CT ABD: Diarrhea with mild wall thickening and surrounding inflammatory stranding at the rectum and distal sigmoid colon consistent with a distal proctocolitis. * Doxycycline * Still with distention and tenderness * F/U CT ABD COMPLETED treatment Plan Time Spent With Patient Time with patient: 25 - 35 minutes Subjective Date/time seen: 03/30/24 11:24 Interval history: Interval history: This is a 83-year-old male with a significant past medical history of Parkinson's disease, GERD, pneumonia, pulmonary embolism, DVT, pacemaker who presented to [facility] for swing bed program. Patient was recently hospitalized at [facility] from 03/04/24-03/16/24 after sustaining a ground level fall and fracturing his left femur. He was taken to the OR on 03/08/2024 for an ORIF of his left femur intertrochanteric fracture with cephalomedullary nail With Dr. Thurman. In the postop. He was noted to have a adynamic ileus and general surgery was consulted for management of the ileus. He also was being followed by Urology due to some scrotal edema that he developed postoperatively. He did have an ultrasound of the scrotum which showed possible cellulitis however it was ruled out by urology services. Patient was however treated with Zyvox and Augmentin. Patient denies any fever, chills, nausea, vomiting, chest pain, or shortness of breath. He endorses abdominal pain due to gas and diarrhea. Subjective: patient denies any nausea and vomiting overnight. He had quite a few bowel movements through the night. His abdomen is still quite distended today however he is not complaining of any pain. Labs and imaging reviewed. Review of Systems Review of Systems: All systems reviewed & are unremarkable except as noted in HPI and below Constitutional: Constitutional: Reports as per HPI and Reports no additional constitutional complaints Eyes: Eyes: Reports as per HPI and Reports no additional eye complaints ENT: Reports system reviewed and no additional complaints, except as documented and Reports as per HPI Cardiovascular: Cardiovascular: Reports as per HPI and Reports no additional cardiovascular complaints Respiratory: Respiratory: Reports as per HPI and Reports no additional res piratory complaints Gastrointestinal: Gastrointestinal: Reports as per HPI and Reports no additional gastrointestinal complaints Genitourinary: Genitourinary: Reports no additional male genitourinary complaints and Reports as per HPI Musculoskeletal: Musculoskeletal: Reports no additional musculoskeletal complaints and Reports as per HPI Integumentary/Breasts: Skin/Breast: Reports system reviewed and no additional complaints, except as docu and Reports as per HPI Neurologic: Reports system reviewed and no additional complaints, except as documented and Reports as per HPI Psychiatric: Psychiatric: Reports no additional psychiatric complaints and Reports as per HPI Exam Narrative: General: In no acute distress, well nourished Cardiac: Normal S1 and S2. No murmur, gallops or friction rubs, peripheral pulses intact. Respiratory: Lungs clear to auscultation, no adventitious lung sounds, currently on room air Gastrointestinal: Distended, taut, non-tender, hyperactive bowel sounds bilateral upper quadrants, hypoactive bowel sounds bilateral lower quadrants. passing flatus Extremities: moves all extremities well, no edema Neuro: Alert and oriented x4 Objective Data Vital Signs Vital Signs: Vital Signs - 24 hr 03/29/24 16:00 03/29/24 23:53 Temperature 99.4 F 97.6 F Pulse Rate 70 73 Respiratory Rate 17 18 Blood Pressure 104/52 L 112/53 L Pulse Oximetry 97 98 Oxygen Delivery Room Air Room Air Intake/Output Intake/Output: Intake & Output 03/27/24 03/28/24 03/29/24 03/30/24 23:59 23:59 23:59 23:59 Intake Total 1420 2210 200 1100 Output Total 900 500 400 375 Balance 520 1710 -200 725 Meds/Results Medications: Active Medications Generic Name Dose Route Start Last Admin Trade Name Freq PRN Reason Stop Dose Admin Carvedilol 1.56 mg 03/17/24 21:00 03/29/24 11:05 Carvedilol 1.56 Mg Tablet PO Not Given Q12HR YARA Dicyclomine HCl 20 mg 03/27/24 13:00 03/29/24 11:05 Dicyclomine Hcl 10 Mg Capsule PO Not Given TID YARA Diphenoxylate HCl/Atropine 2 tablet 03/28/24 09:46 03/30/24 06:01 Diphenoxylate/Atropine (*Crx) 2.5 Mg Tablet PO 2 tablet Q6HR PRN Administration Diarrhea Doxycycline Hyclate 100 mg 03/23/24 09:00 03/29/24 11:05 Doxycycline Hyclate 100 Mg Tablet PO Not Given Q12HR YARA Famotidine 20 mg 03/29/24 11:00 03/30/24 08:49 Famotidine 20 Mg/2 Ml Vial IV PUSH 20 mg Q12HR YARA Administration Folic Acid 1 mg 03/30/24 09:00 03/30/24 08:52 Folic Acid 1 Mg Tablet FEED TUBE 1 mg DAILY YARA Administration Furosemide 20 mg 03/17/24 09:00 03/29/24 11:05 Furosemide 20 Mg Tablet PO Not Given QAM YARA Furosemide 20 mg 03/30/24 09:00 03/30/24 08:49 Furosemide Inj 20 Mg/2 Ml Vial IV PUSH 20 mg DAILY YARA Administration Hydralazine HCl 10 mg 03/29/24 10:16 Hydralazine Hcl 20 Mg/Ml Vial IV PUSH Q8H PRN Blood Pressure - High Hydromorphone HCl 0.5 mg 03/29/24 11:05 Hydromorphone Hcl Inj (*Crx) 2 Mg/Ml Vial IV PUSH Q3H PRN Pain Rated 7-10 Hyoscyamine 0.125 mg 03/16/24 18:42 03/28/24 21:59 Hyoscyamine Sulfate 0.125 Mg Tablet SUBLINGUAL 0.125 mg QID PRN Administration dyspepsia Lactated Ringer's 1,000 mls @ 75 mls/hr 03/29/24 10:15 03/30/24 04:01 Lr - Lactated Ringers Iv IV CONT 75 mls/hr .[id number] YARA Administration Loperamide HCl 2 mg 03/20/24 11:33 03/28/24 08:59 Loperamide Hcl 2 Mg Capsule PO 2 mg PRN PRN Administration Diarrhea Multivitamins/Calcium 1 tablet 03/17/24 09:00 03/29/24 11:05 Therapeutic Multivitamins/Minerals Tab (*Bkc) PO Not Given DAILY YARA Neomycin/Polymyxin/Bacitracin 1 applic 03/21/24 12:00 03/29/24 08:00 Neomycin/Polymyxin/Bacitracin Ointment 15 Gm Tube TOPICAL 1 applic QAM YARA Administration Ondansetron HCl 4 mg 03/29/24 03:10 03/29/24 09:36 Ondansetron Inj 4 Mg/2 Ml Vial IV PUSH 4 mg Q4H PRN Administration Nausea And Vomiting Oxycodone/Acetaminophen 1 tab 03/16/24 18:42 03/28/24 21:59 Oxycodone/Acetaminophen (*Crx) 10-325 Mg Tablet PO 1 tab Q6H PRN Administration Pain Rated 7-10 Rifaximin 550 mg 03/27/24 11:05 03/30/24 08:48 Rifaximin 550 Mg Tablet PO 550 mg Q12HR YARA Administration Saccharomyces Boulardii 250 mg 03/22/24 13:00 03/29/24 11:05 Saccharomyces Boulardii 250 Mg Capsule PO Not Given TID YARA Sacubitril/Valsartan 1 tab 03/29/24 21:00 03/30/24 08:48 Sacubitril/Valsartan 24-26 Mg Tablet FEED TUBE 1 tab Q12HR YARA Administration Simethicone 80 mg 03/29/24 13:00 03/30/24 08:48 Simethicone 80 Mg Tab.Chew FEED TUBE 80 mg QID YARA Administration Radiology Results: ITS Impressions Abdomen/Pelvis CT 03/27/24 13:18 IMPRESSION: Air and fluid opacification of the distal colon and rectum. No obstruction. Abnormal left adrenal gland for which follow-up contrast enhanced CT or MRI with renal mass protocol is recommended, if the patient is clinically able. Nonobstructing renal calculi. Cholelithiasis. Bilateral pleural effusions with adjacent compressive atelectasis. Abdomen X-Ray 03/29/24 10:05 IMPRESSION: 1. Dilated colon, consistent with adynamic ileus. Labs Labs: Laboratory Results - last 24 hr 03/30/24 09:33 WBC 2.0 L RBC 3.17 L Hgb 9.0 L Hct 29.9 L MCV 94.3 MCH 28.4 MCHC 30.1 L RDW 17.0 H Plt Count 141 L MPV 10.6 Immature Gran % (Auto) Not Reportable Neut % (Auto) Not Reportable Lymph % (Auto) Not Reportable [place] % (Auto) Not Reportable Eos % (Auto) Not Reportable Baso % (Auto) Not Reportable Lymph # (Auto) Not Reportable [place] # (Auto) Not Reportable Eos # (Auto) Not Reportable Baso # (Auto) Not Reportable Abs Immat Gran (auto) Not Reportable Absolute Neuts (auto) Not Reportable Absolute Nucleated RBC Not Reportable Total Counted 100 Neutrophils % (Manual) 75 H Band Neutrophils % 0 Lymphocytes % (Manual) 15 L Monocytes % (Manual) 10 H Nucleated RBC % Not Reportable Abs Neuts (Manual) 1.50 Abs Lymphs (Manual) 0.30 L Abs Monocytes (Manual) 0.20 Platelet Estimate Adequate Schistocytes Not Reportable Sodium 145 Potassium 2.6 L Chloride 111 H Carbon Dioxide 24 Anion Gap 10 BUN 12 Creatinine 0.88 Estim Creat Clear Calc 62 Estimated GFR > 60 Glucose 111 H Calculated Osmolality 300 H Calcium 6.8 L Magnesium 1.9 Total Bilirubin 0.5 AST 30 ALT 17 Alkaline Phosphatase 189 H Total Protein 5.4 L Albumin 2.4 L Quality VTE Prophylaxis VTE prophylaxis: pharmacologic ordered
[2024-03-30] MEDS: SIMETHICONE 80 MG TAB.CHEW PO ×3 (12:29→22:42)
[2024-03-30] MEDS: SACCHAROMYCES BOULARDII 250 MG CAPSULE PO (12:45)
[2024-03-30] MEDS: POTASSIUM CHLORIDE 20 MEQ ER TABLET 40 MEQ PO (13:47)
[2024-03-30 16:00] VITALS: BP 101/51; PULSE 70; RESP 18; TEMP 36.6; O2SAT 96
--- NOTE | 2024-03-30 16:17 | PC.NURSE ---
Kailyn Benavidez, EXTENSION WORKER/Hospitalist, notified that patient's abd is starting to swell again. Awaiting response.
--- NOTE | 2024-03-30 16:41 | PC.NURSE ---
Patient continues to have increased firmnesss in abdomen. See MAR. physical therapist center manager aware. Call out to provider in regards to inability to tolerate PO Potassium, increased firmness of abdomen, and pain in left lower quadrant. See Vital Signs. Patient sleeping, awakes easily to voice. Denies nausea. No vomiting.
--- NOTE | 2024-03-30 16:57 | PC.NURSE ---
Kailyn Benavidez,, PHYSICIAN ASSISTANT SURGERY/Hospitalist, acknowledged the increased swelling in abd. PHYSICIAN ASSISTANT SURGERY response was that his abd was swollen this A.M. and that she will work on his transfer soon. Charge nurse then updated PHYSICIAN ASSISTANT SURGERY that patient is now c/o LL abd quad pain and that patient was able to take Simethicone but unable to take Potassium or Florostor. Charge nurse also asked PHYSICIAN ASSISTANT SURGERY if she feels that the patient's Lomotil and Imodium should be d/c'd due to patient possible Ileus.
--- NOTE | 2024-03-30 17:09 | PC.NURSE ---
Kailyn Benavidez, FINANCIAL AID COORDINATOR/Hospitalist, called and stated she is putting new orders in for 209 and will work on his transfer.
[2024-03-30] MEDS: POTASSIUM CHLORIDE 20 MEQ PACKET (FOR LIQUID) 40 MEQ PO ×2 (17:51→22:41)
[2024-03-30] MEDS: SACUBITRIL/VALSARTAN 24-26 MG TABLET 1 TAB PO (22:41)
[2024-03-31] VITALS: BP 122/62; PULSE 71; RESP 16; TEMP 36.3; O2SAT 98
[2024-03-31 08:00] VITALS: BP 113/62; PULSE 74; RESP 18; TEMP 36.6; O2SAT 95
[2024-03-31] MEDS: FAMOTIDINE 20 MG/2 ML VIAL IV PUSH ×2 (09:26→20:26)
[2024-03-31] MEDS: FOLIC ACID 1 MG TABLET FEED TUBE (09:26)
[2024-03-31] MEDS: SACUBITRIL/VALSARTAN 24-26 MG TABLET 1 TAB PO ×2 (09:26→20:25)
[2024-03-31] MEDS: FUROSEMIDE 20 MG TABLET PO (09:26)
[2024-03-31] MEDS: SIMETHICONE 80 MG TAB.CHEW PO ×4 (09:27→20:26)
--- NOTE | 2024-03-31 11:12 | P.PNIM_ITS ---
Progress Note: A&P Assessment and Plan (1) Adynamic ileus: Code(s): K56.0 - Paralytic ileus Status: Acute Assessment and Plan: Patient with continued ABD pain, ABD distention, diarrhea, hyperactive bowels, and new onset vomiting * CT ABD 2/ Air and fluid opacification of the distal colon and rectum.No obstruction. * NG ordered for decompression intermittent low suction * KUB: adynamic ileus * Will resume simethicone 80 mg p.o. q.i.d. for gas pain * NPO * IV fluids maintenance Monitor for fluid overload HX of HF * KUB daily for resolution * Holding some medication, substituting for IV if I can or per tube 03/30 * patient denies any nausea or vomiting * KUB yesterday showed adynamic ileus * patient had multiple bowel movements overnight and is passing gas today. * Recheck KUB shown gaseous distention of the colon, consistent with adynamic ileus. * Continue simethicone * Encourage ambulation * May need transfer to tertiary care for general surgery and possible GI consult due to ileus. * will discontinue IV fluids and start patient back on diet * 03/31 * IV Reglan BID * MOM BID * KUB in am * continue to monitor * ICE Chips (2) Vomiting: Code(s): R11.10 - Vomiting, unspecified Status: Acute Assessment and Plan: 03/30 * denies any nausea vomiting today (3) Diarrhea: Code(s): R19.7 - Diarrhea, unspecified Status: Acute Assessment and Plan: * continue Imodium * Will start simethicone 80 mg p.o. q.i.d. for gas pain 03/20 * will check C diff today 03/27: * C diff and stool cultures negative * CT ABD with proctocolitis * dicyclomine add patient with GI spasms * Diarrhea improving * doxycycline * added rifaximin d/c simethicone 2/4: * C-diff negative * Stool culture negative 03/30 * continue rifaximin * patient has had quite a few loose stools through the night * will continue probiotic today (4) Weakness: Code(s): R53.1 - Weakness Status: Acute Assessment and Plan: * continue PT and OT 03/20 * no change to current treatment plan 03/30 * continue PT and OT * plan for discharge on Thursday with [facility] (5) Pressure injury: Code(s): L89.90 - Pressure ulcer of unspecified site, unspecified stage Status: Acute Assessment and Plan: * pressure injury to bilateral heels and sacral area * offload on heels * Q 2 turns * Allevyn to areas * heal protectors * wound consult placed 03/30 * continue offload heels * use Mepilex to bilateral heels and sacrum * continue to monitor (6) Closed intertrochanteric fracture of femur: Qualifiers: Encounter type: initial encounter Fracture alignment: displaced Laterality: left Qualified Code(s): S72.142A - Displaced intertrochanteric fracture of left femur, initial encounter for closed fracture Code(s): S72.143A - Displaced intertrochanteric fracture of unspecified femur, initial encounter for closed fracture Status: Acute Assessment and Plan: * status post ORIF of left femur intratrochanteric fracture with cephalomedullary nail by Dr. Brenner * continue heparin b.i.d. for DVT prophylaxis * continue PT and OT 03/20 * heparin currently on hold due to hematuria yesterday, still pink tinged urine today Will continue to hold heparin for now * continue PT and OT 03/30 * continue PT and OT (7) CHF (congestive heart failure): Code(s): I50.9 - Heart failure, unspecified Status: Acute Assessment and Plan: * continue Coreg, Lasix, Entresto 03/20 * no change to current treatment plan 03/30 * changed Lasix to p.o. (8) Cellulitis: Code(s): L03.90 - Cellulitis, unspecified Status: Resolved Assessment and Plan: * currently on Augmentin and linezolid * continue Villeda catheter 03/20 * therapy complete (9) Proctocolitis: Code(s): K52.9 - Noninfective gastroenteritis and colitis, unspecified Status: Acute Assessment and Plan: * CT ABD: Diarrhea with mild wall thickening and surrounding inflammatory stranding at the rectum and distal sigmoid colon consistent with a distal proctocolitis. * Doxycycline * Still with distention and tenderness * F/U CT ABD COMPLETED treatment Plan Subjective Date/time seen: 03/31/24 11:12 Interval history: Reviewed today NIA will start on MOM BID will start REGlan IV BID and we will recheck his labs in the am. Exam Narrative: General: In no acute distress, well nourished Cardiac: Normal S1 and S2. No murmur, gallops or friction rubs, peripheral pulses intact. Respiratory: Lungs clear to auscultation, no adventitious lung sounds, currently on room air Gastrointestinal: Distended, taut, non-tender, hyperactive bowel sounds bilateral upper quadrants, hypoactive bowel sounds bilateral lower quadrants. passing flatus Extremities: moves all extremities well, no edema Neuro: Alert and oriented x4 Objective Data Vital Signs Vital Signs: Vital Signs - 24 hr 03/30/24 16:00 03/31/24 00:00 Temperature 97.8 F 97.3 F L Pulse Rate 70 71 Respiratory Rate 18 16 Blood Pressure 101/51 L 122/62 Pulse Oximetry 96 98 Oxygen Delivery Room Air Room Air Intake/Output Intake/Output: Intake & Output 03/28/24 03/29/24 03/30/24 03/31/24 23:59 23:59 23:59 23:59 Intake Total 2210 200 1935 240 Output Total 813 327 4844 500 Balance 1710 -200 110 -260 Meds/Results Medications: Active Medications Generic Name Dose Route Start Last Admin Trade Name Freq PRN Reason Stop Dose Admin Acetaminophen 650 mg 03/31/24 11:12 Acetaminophen 325 Mg Tablet PO Q6H PRN Mild Pain (1-3) or Fever Carvedilol 1.56 mg 03/17/24 21:00 03/29/24 11:05 Carvedilol 1.56 Mg Tablet PO Not Given Q12HR YARA Dicyclomine HCl 20 mg 03/27/24 13:00 03/29/24 11:05 Dicyclomine Hcl 10 Mg Capsule PO Not Given TID [facility] Famotidine 20 mg 03/29/24 11:00 03/31/24 09:26 Famotidine 20 Mg/2 Ml Vial IV PUSH 20 mg Q12HR YARA Administration Folic Acid 1 mg 03/30/24 09:00 03/31/24 09:26 Folic Acid 1 Mg Tablet FEED TUBE 1 mg DAILY YARA Administration Furosemide 20 mg 03/17/24 09:00 03/31/24 09:26 Furosemide 20 Mg Tablet PO 20 mg QAM [facility] Administration Hydralazine HCl 10 mg 03/29/24 10:16 Hydralazine Hcl 20 Mg/Ml Vial IV PUSH Q8H PRN Blood Pressure - High Hyoscyamine 0.125 mg 03/16/24 18:42 03/28/24 21:59 Hyoscyamine Sulfate 0.125 Mg Tablet SUBLINGUAL 0.125 mg QID PRN Administration dyspepsia Magnesium Hydroxide 30 ml 03/31/24 17:00 Magnesium Hydroxide Susp 30 Ml Udc PO BID [facility] Metoclopramide HCl 10 mg 03/31/24 17:00 Metoclopramide Hcl 10 Mg Tablet PO BID [facility] Multivitamins/Calcium 1 tablet 03/17/24 09:00 03/29/24 11:05 Therapeutic Multivitamins/Minerals Tab (*Bkc) PO Not Given DAILY [facility] Neomycin/Polymyxin/Bacitracin 1 applic 03/21/24 12:00 03/30/24 09:00 Neomycin/Polymyxin/Bacitracin Ointment 15 Gm Tube TOPICAL 1 applic QAM [facility] Administration Ondansetron HCl 4 mg 03/29/24 03:10 03/29/24 09:36 Ondansetron Inj 4 Mg/2 Ml Vial IV PUSH 4 mg Q4H PRN Administration Nausea And Vomiting Oxycodone/Acetaminophen 1 tab 03/16/24 18:42 03/28/24 21:59 Oxycodone/Acetaminophen (*Crx) 10-325 Mg Tablet PO 1 tab Q6H PRN Administration Pain Rated 7-10 Saccharomyces Boulardii 250 mg 03/22/24 13:00 03/31/24 09:19 Saccharomyces Boulardii 250 Mg Capsule PO Not Given TID [facility] Sacubitril/Valsartan 1 tab 03/30/24 21:00 03/31/24 09:26 Sacubitril/Valsartan 24-26 Mg Tablet PO 1 tab Q12HR YARA Administration Simethicone 80 mg 03/30/24 13:00 03/31/24 09:27 Simethicone 80 Mg Tab.Chew PO 80 mg QID YARA Administration Radiology Results: ITS Impressions Abdomen/Pelvis CT 03/27/24 13:18 IMPRESSION: Air and fluid opacification of the distal colon and rectum. No obstruction. Abnormal left adrenal gland for which follow-up contrast enhanced CT or MRI with renal mass protocol is recommended, if the patient is clinically able. Nonobstructing renal calculi. Cholelithiasis. Bilateral pleural effusions with adjacent compressive atelectasis. Abdomen X-Ray 03/31/24 10:17 IMPRESSION: 1. Distended colon, consistent with adynamic ileus.
--- NOTE | 2024-03-31 11:12 | PM.IMPN ---
Progress Note: A&P Assessment and Plan (1) Adynamic ileus: Code(s): K56.0 - Paralytic ileus Status: Acute Assessment and Plan: Patient with continued ABD pain, ABD distention, diarrhea, hyperactive bowels, and new onset vomiting CT ABD 2/ Air and fluid opacification of the distal colon and rectum.No obstruction. NG ordered for decompression intermittent low suction KUB: adynamic ileus Will resume simethicone 80 mg p.o. q.i.d. for gas pain NPO IV fluids maintenance Monitor for fluid overload HX of HF KUB daily for resolution Holding some medication, substituting for IV if I can or per tube 03/30 patient denies any nausea or vomiting KUB yesterday showed adynamic ileus patient had multiple bowel movements overnight and is passing gas today. Recheck KUB shown gaseous distention of the colon, consistent with adynamic ileus. Continue simethicone Encourage ambulation May need transfer to tertiary care for general surgery and possible GI consult due to ileus. will discontinue IV fluids and start patient back on diet 03/31 IV Reglan BID MOM BID KUB in am continue to monitor ICE Chips (2) Vomiting: Code(s): R11.10 - Vomiting, unspecified Status: Acute Assessment and Plan: 03/30 denies any nausea vomiting today (3) Diarrhea: Code(s): R19.7 - Diarrhea, unspecified Status: Acute Assessment and Plan: continue Imodium Will start simethicone 80 mg p.o. q.i.d. for gas pain 03/20 will check C diff today 03/27: C diff and stool cultures negative CT ABD with proctocolitis dicyclomine add patient with GI spasms Diarrhea improving doxycycline added rifaximin d/c simethicone 03/29: C-diff negative Stool culture negative 03/30 continue rifaximin patient has had quite a few loose stools through the night will continue probiotic today (4) Weakness: Code(s): R53.1 - Weakness Status: Acute Assessment and Plan: continue PT and OT 03/20 no change to current treatment plan 03/30 continue PT and OT plan for discharge on Thursday with [facility] (5) Pressure injury: Code(s): L89.90 - Pressure ulcer of unspecified site, unspecified stage Status: Acute Assessment and Plan: pressure injury to bilateral heels and sacral area offload on heels Q 2 turns Allevyn to areas heal protectors wound consult placed 03/30 continue offload heels use Mepilex to bilateral heels and sacrum continue to monitor (6) Closed intertrochanteric fracture of femur: Qualifiers: Encounter type: initial encounter Fracture alignment: displaced Laterality: left Qualified Code(s): S72.142A - Displaced intertrochanteric fracture of left femur, initial encounter for closed fracture Code(s): S72.143A - Displaced intertrochanteric fracture of unspecified femur, initial encounter for closed fracture Status: Acute Assessment and Plan: status post ORIF of left femur intratrochanteric fracture with cephalomedullary nail by Dr. Brenner continue heparin b.i.d. for DVT prophylaxis continue PT and OT 03/20 heparin currently on hold due to hematuria yesterday, still pink tinged urine today Will continue to hold heparin for now continue PT and OT 03/30 continue PT and OT (7) CHF (congestive heart failure): Code(s): I50.9 - Heart failure, unspecified Status: Acute Assessment and Plan: continue Coreg, Lasix, Entresto 03/20 no change to current treatment plan 03/30 changed Lasix to p.o. (8) Cellulitis: Code(s): L03.90 - Cellulitis, unspecified Status: Resolved Assessment and Plan: currently on Augmentin and linezolid continue Villeda catheter 03/20 therapy complete (9) Proctocolitis: Code(s): K52.9 - Noninfective gastroenteritis and colitis, unspecified Status: Acute Assessment and Plan: CT ABD: Diarrhea with mild wall thickening and surrounding inflammatory stranding at the rectum and distal sigmoid colon consistent with a distal proctocolitis. Doxycycline Still with distention and tenderness F/U CT ABD COMPLETED treatment Plan Subjective Date/time seen: 03/31/24 11:12 Interval history: Reviewed today KUB will start on MOM BID will start REGlan IV BID and we will recheck his labs in the am. Exam Narrative: General: In no acute distress, well nourished Cardiac: Normal S1 and S2. No murmur, gallops or friction rubs, peripheral pulses intact. Respiratory: Lungs clear to auscultation, no adventitious lung sounds, currently on room air Gastrointestinal: Distended, taut, non-tender, hyperactive bowel sounds bilateral upper quadrants, hypoactive bowel sounds bilateral lower quadrants. passing flatus Extremities: moves all extremities well, no edema Neuro: Alert and oriented x4 Objective Data Vital Signs Vital Signs: Vital Signs - 24 hr 03/30/24 16:00 03/31/24 00:00 Temperature 97.8 F 97.3 F L Pulse Rate 70 71 Respiratory Rate 18 16 Blood Pressure 101/51 L 122/62 Pulse Oximetry 96 98 Oxygen Delivery Room Air Room Air Intake/Output Intake/Output: Intake & Output 03/28/24 03/29/24 03/30/24 03/31/24 23:59 23:59 23:59 23:59 Intake Total 2210 200 1935 240 Output Total 153 773 0973 500 Balance 1710 -200 110 -260 Meds/Results Medications: Active Medications Generic Name Dose Route Start Last Admin Trade Name Freq PRN Reason Stop Dose Admin Acetaminophen 650 mg 03/31/24 11:12 Acetaminophen 325 Mg Tablet PO Q6H PRN Mild Pain (1-3) or Fever Carvedilol 1.56 mg 03/17/24 21:00 03/29/24 11:05 Carvedilol 1.56 Mg Tablet PO Not Given Q12HR YARA Dicyclomine HCl 20 mg 03/27/24 13:00 03/29/24 11:05 Dicyclomine Hcl 10 Mg Capsule PO Not Given TID YARA Famotidine 20 mg 03/29/24 11:00 03/31/24 09:26 Famotidine 20 Mg/2 Ml Vial IV PUSH 20 mg Q12HR YARA Administration Folic Acid 1 mg 03/30/24 09:00 03/31/24 09:26 Folic Acid 1 Mg Tablet FEED TUBE 1 mg DAILY YARA Administration Furosemide 20 mg 03/17/24 09:00 03/31/24 09:26 Furosemide 20 Mg Tablet PO 20 mg QAM YARA Administration Hydralazine HCl 10 mg 03/29/24 10:16 Hydralazine Hcl 20 Mg/Ml Vial IV PUSH Q8H PRN Blood Pressure - High Hyoscyamine 0.125 mg 03/16/24 18:42 03/28/24 21:59 Hyoscyamine Sulfate 0.125 Mg Tablet SUBLINGUAL 0.125 mg QID PRN Administration dyspepsia Magnesium Hydroxide 30 ml 03/31/24 17:00 Magnesium Hydroxide Susp 30 Ml Udc PO BID [facility] Metoclopramide HCl 10 mg 03/31/24 17:00 Metoclopramide Hcl 10 Mg Tablet PO BID [facility] Multivitamins/Calcium 1 tablet 03/17/24 09:00 03/29/24 11:05 Therapeutic Multivitamins/Minerals Tab (*Bkc) PO Not Given DAILY YARA Neomycin/Polymyxin/Bacitracin 1 applic 03/21/24 12:00 03/30/24 09:00 Neomycin/Polymyxin/Bacitracin Ointment 15 Gm Tube TOPICAL 1 applic QAM YARA Administration Ondansetron HCl 4 mg 03/29/24 03:10 03/29/24 09:36 Ondansetron Inj 4 Mg/2 Ml Vial IV PUSH 4 mg Q4H PRN Administration Nausea And Vomiting Oxycodone/Acetaminophen 1 tab 03/16/24 18:42 03/28/24 21:59 Oxycodone/Acetaminophen (*Crx) 10-325 Mg Tablet PO 1 tab Q6H PRN Administration Pain Rated 7-10 Saccharomyces Boulardii 250 mg 03/22/24 13:00 03/31/24 09:19 Saccharomyces Boulardii 250 Mg Capsule PO Not Given TID YARA Sacubitril/Valsartan 1 tab 03/30/24 21:00 03/31/24 09:26 Sacubitril/Valsartan 24-26 Mg Tablet PO 1 tab Q12HR YARA Administration Simethicone 80 mg 03/30/24 13:00 03/31/24 09:27 Simethicone 80 Mg Tab.Chew PO 80 mg QID YARA Administration Radiology Results: ITS Impressions Abdomen/Pelvis CT 03/27/24 13:18 IMPRESSION: Air and fluid opacification of the distal colon and rectum. No obstruction. Abnormal left adrenal gland for which follow-up contrast enhanced CT or MRI with renal mass protocol is recommended, if the patient is clinically able. Nonobstructing renal calculi. Cholelithiasis. Bilateral pleural effusions with adjacent compressive atelectasis. Abdomen X-Ray 03/31/24 10:17 IMPRESSION: 1. Distended colon, consistent with adynamic ileus.
[2024-03-31] MEDS: DICYCLOMINE HCL 10 MG CAPSULE 20 MG PO ×2 (13:35→17:13)
[2024-03-31] MEDS: SACCHAROMYCES BOULARDII 250 MG CAPSULE PO ×2 (13:35→17:13)
[2024-03-31 15:58] LABS: Magnesium 1.9 mg/dL (1.8-2.4)
[2024-03-31 16:00] VITALS: BP 92/50; PULSE 65; RESP 18; TEMP 36.6; O2SAT 100
[2024-03-31 16:05] LABS: Potassium 2.5 mmol/L (3.5-5.1)
[2024-03-31] MEDS: METOCLOPRAMIDE HCL 10 MG TABLET PO (17:13)
[2024-03-31] MEDS: MAGNESIUM HYDROXIDE SUSP 30 ML UDC PO (17:13)
--- NOTE | 2024-03-31 18:05 | PC.NURSE ---
1515-Patient is awake and alert. Patient in chair, lab here to draw magnesium and potassium. Right breath sounds noted with crackles and diminished @ the bases. Left breath sounds noted to be course, diminished at the bases. Patient denies shortness of breath. Bowel sounds noted in all 4 quadrant, high pitched. Abdomen is firm, round, and disteneded. Patient complains of discomfort in right lower quadrant with palpation. No edema noted. Heel ulcers noted bilaterally open to air with socks in place. Heels off chair. Unable to visualize coccyx ulcer at this time due to position in chair. Left forearm 20 g angiocath heplocked.
--- NOTE | 2024-03-31 18:08 | PC.NURSE ---
1600- RN given message that patient has K+ 2.5. Reviewed lab work and reported to Kaila Lane RN. Concerns over current potassium, calcium 6.5 (from yesterday), and platelet count of 141. Concerns over patient not currently on anticoagulant. Ariana Bright, RN reaching out to provider with concerns.
--- NOTE | 2024-03-31 18:10 | PC.NURSE ---
1650-Kaila Lane RN heard back from provider. Provider will place orders.
[2024-03-31] MEDS: KCL 20 MEQ/SW 100 ML 100 ML 50 MEQ IVPB ×2 (18:59→20:52)
--- NOTE | 2024-03-31 19:33 | PC.NURSE ---
1929-Patient placed on tennis ball cover cementer. Patient is in sinus rhythm with PVC's, atrial pacer spikes noted with each beat. Occassional V-pacer spikes noted. Right bundle branch block.
[2024-03-31 20:00] VITALS: PULSE 65; RESP 18; O2SAT 100
[2024-03-31] MEDS: SODIUM CHLORIDE 0.9% IV 250 ML 25 ML IV CONT (20:52)
[2024-03-31 23:52] VITALS: BP 122/57; PULSE 64; RESP 17; TEMP 36.5; O2SAT 98
[2024-04-01 08:00] VITALS: BP 118/64; PULSE 69; RESP 16; TEMP 36.6; O2SAT 99
[2024-04-01] MEDS: MAGNESIUM HYDROXIDE SUSP 30 ML UDC PO ×2 (08:18→16:33)
[2024-04-01] MEDS: SACUBITRIL/VALSARTAN 24-26 MG TABLET 1 TAB PO ×2 (08:19→21:49)
[2024-04-01] MEDS: DICYCLOMINE HCL 10 MG CAPSULE 20 MG PO ×3 (08:19→16:33)
[2024-04-01] MEDS: FAMOTIDINE 20 MG/2 ML VIAL IV PUSH ×2 (08:19→21:49)
[2024-04-01] MEDS: FOLIC ACID 1 MG TABLET FEED TUBE (08:19)
[2024-04-01] MEDS: SIMETHICONE 80 MG TAB.CHEW PO ×4 (08:19→21:50)
[2024-04-01] MEDS: SACCHAROMYCES BOULARDII 250 MG CAPSULE PO ×3 (08:19→16:33)
[2024-04-01] MEDS: FUROSEMIDE 20 MG TABLET PO (08:20)
[2024-04-01] MEDS: METOCLOPRAMIDE HCL 10 MG TABLET PO ×2 (08:20→16:34)
[2024-04-01 08:36] LABS: Hematocrit 32.6 % (37.0-46.0); Hemoglobin 10.2 g/dL (12.4-15.3); Mean Corpuscular HGB Conc 31.3 g/dL (32-36); Mean Corpuscular Volume 89.6 fL (78.0-102.0); Mean Platelet Volume 10.4 fl (8.7-11.0); Platelet Count Result 155 K/mm3 (150-420); Red Blood Count 3.64 M/mm3 (4.70-6.10); Red Cell Distribution Width 16.1 % (11.6-14.4); White Blood Count 3.3 K/mm3 (4.8-10.8)
[2024-04-01 08:52] LABS: Anion Gap 14 mmol/L (4-12); Blood Urea Nitrogen 6 mg/dL (7-18); Calcium 7.1 mg/dL (8.5-10.1); Carbon Dioxide 24 mmol/L (21-32); Chloride 108 mmol/L (98-108); Estimated CRCL calculation 72 ml/min; Estimated Glomerular Filt Rate > 60; Glucose 101 mg/dL (70-99); Osmolality Calculated 299 mOsm/kg (285-295); Potassium 2.6 mmol/L (3.5-5.1); Sodium 146 mmol/L (136-145)
--- NOTE | 2024-04-01 10:04 | P.PNIM_ITS ---
Progress Note: A&P Assessment and Plan (1) Adynamic ileus: Code(s): K56.0 - Paralytic ileus Status: Acute Assessment and Plan: Patient with continued ABD pain, ABD distention, diarrhea, hyperactive bowels, and new onset vomiting * CT ABD 2/ Air and fluid opacification of the distal colon and rectum.No obstruction. * NG ordered for decompression intermittent low suction * KUB: adynamic ileus * Will resume simethicone 80 mg p.o. q.i.d. for gas pain * NPO * IV fluids maintenance Monitor for fluid overload HX of HF * KUB daily for resolution * Holding some medication, substituting for IV if I can or per tube 03/30 * patient denies any nausea or vomiting * KUB yesterday showed adynamic ileus * patient had multiple bowel movements overnight and is passing gas today. * Recheck KUB shown gaseous distention of the colon, consistent with adynamic ileus. * Continue simethicone * Encourage ambulation * May need transfer to tertiary care for general surgery and possible GI consult due to ileus. * will discontinue IV fluids and start patient back on diet * 03/31 * IV Reglan BID * MOM BID * KUB in am * continue to monitor * ICE Chips (2) Vomiting: Code(s): R11.10 - Vomiting, unspecified Status: Acute Assessment and Plan: 03/30 * denies any nausea vomiting today (3) Diarrhea: Code(s): R19.7 - Diarrhea, unspecified Status: Acute Assessment and Plan: * continue Imodium * Will start simethicone 80 mg p.o. q.i.d. for gas pain 03/20 * will check C diff today 03/27: * C diff and stool cultures negative * CT ABD with proctocolitis * dicyclomine add patient with GI spasms * Diarrhea improving * doxycycline * added rifaximin d/c simethicone 2/4: * C-diff negative * Stool culture negative 03/30 * continue rifaximin * patient has had quite a few loose stools through the night * will continue probiotic today (4) Weakness: Code(s): R53.1 - Weakness Status: Acute Assessment and Plan: * continue PT and OT 03/20 * no change to current treatment plan 03/30 * continue PT and OT * plan for discharge on Thursday with [facility] (5) Pressure injury: Code(s): L89.90 - Pressure ulcer of unspecified site, unspecified stage Status: Acute Assessment and Plan: * pressure injury to bilateral heels and sacral area * offload on heels * Q 2 turns * Allevyn to areas * heal protectors * wound consult placed 03/30 * continue offload heels * use Mepilex to bilateral heels and sacrum * continue to monitor (6) Closed intertrochanteric fracture of femur: Qualifiers: Encounter type: initial encounter Fracture alignment: displaced Laterality: left Qualified Code(s): S72.142A - Displaced intertrochanteric fracture of left femur, initial encounter for closed fracture Code(s): S72.143A - Displaced intertrochanteric fracture of unspecified femur, initial encounter for closed fracture Status: Acute Assessment and Plan: * status post ORIF of left femur intratrochanteric fracture with cephalomedullary nail by Dr. Brenner * continue heparin b.i.d. for DVT prophylaxis * continue PT and OT 03/20 * heparin currently on hold due to hematuria yesterday, still pink tinged urine today Will continue to hold heparin for now * continue PT and OT 03/30 * continue PT and OT (7) CHF (congestive heart failure): Code(s): I50.9 - Heart failure, unspecified Status: Acute Assessment and Plan: * continue Coreg, Lasix, Entresto 03/20 * no change to current treatment plan 03/30 * changed Lasix to p.o. (8) Cellulitis: Code(s): L03.90 - Cellulitis, unspecified Status: Resolved Assessment and Plan: * currently on Augmentin and linezolid * continue Villeda catheter 03/20 * therapy complete (9) Proctocolitis: Code(s): K52.9 - Noninfective gastroenteritis and colitis, unspecified Status: Acute Assessment and Plan: * CT ABD: Diarrhea with mild wall thickening and surrounding inflammatory stranding at the rectum and distal sigmoid colon consistent with a distal proctocolitis. * Doxycycline * Still with distention and tenderness * F/U CT ABD COMPLETED treatment Plan Subjective Date/time seen: 04/01/24 10:04 Interval history: Potassium remain low 2.6 will give IV and oral MOM and reglan give will continue to monitor held lasix today restart when deem ready Exam Narrative: General: In no acute distress, well nourished Cardiac: Normal S1 and S2. No murmur, gallops or friction rubs, peripheral pulses intact. Respiratory: Lungs clear to auscultation, no adventitious lung sounds, currently on room air Gastrointestinal: Distended, taut, non-tender, hyperactive bowel sounds bilateral upper quadrants, hypoactive bowel sounds bilateral lower quadrants. passing flatus Extremities: moves all extremities well, no edema Neuro: Alert and oriented x4 Objective Data Vital Signs Vital Signs: Vital Signs - 24 hr 03/31/24 16:00 03/31/24 20:00 03/31/24 23:52 Temperature 97.9 F 97.7 F Pulse Rate 65 65 64 Respiratory Rate 18 18 17 Blood Pressure 92/50 L 122/57 L Pulse Oximetry 100 100 98 Oxygen Delivery Room Air Room Air Room Air 04/01/24 08:00 04/01/24 08:00 Temperature 97.8 F Pulse Rate 69 69 Respiratory Rate 16 16 Blood Pressure 118/64 Pulse Oximetry 99 99 Oxygen Delivery Room Air Room Air Intake/Output Intake/Output: Intake & Output 03/29/24 03/30/24 03/31/24 04/01/24 23:59 23:59 23:59 23:59 Intake Total 200 1935 640.0 90 Output Total 400 1825 1250 800 Balance -200 110 -610.0 -710 Meds/Results Medications: Active Medications Generic Name Dose Route Start Last Admin Trade Name Freq PRN Reason Stop Dose Admin Acetaminophen 650 mg 03/31/24 11:12 Acetaminophen 325 Mg Tablet PO Q6H PRN Mild Pain (1-3) or Fever Carvedilol 1.56 mg 03/17/24 21:00 03/29/24 11:05 Carvedilol 1.56 Mg Tablet PO Not Given Q12HR YARA Dicyclomine HCl 20 mg 03/27/24 13:00 04/01/24 08:19 Dicyclomine Hcl 10 Mg Capsule PO 20 mg TID YARA Administration Famotidine 20 mg 03/29/24 11:00 04/01/24 08:19 Famotidine 20 Mg/2 Ml Vial IV PUSH 20 mg Q12HR YARA Administration Folic Acid 1 mg 03/30/24 09:00 04/01/24 08:19 Folic Acid 1 Mg Tablet FEED TUBE 1 mg DAILY YARA Administration Furosemide 20 mg 03/17/24 09:00 04/01/24 08:20 Furosemide 20 Mg Tablet PO 20 mg QAM YARA Administration Hydralazine HCl 10 mg 03/29/24 10:16 Hydralazine Hcl 20 Mg/Ml Vial IV PUSH Q8H PRN Blood Pressure - High Hyoscyamine 0.125 mg 03/16/24 18:42 03/28/24 21:59 Hyoscyamine Sulfate 0.125 Mg Tablet SUBLINGUAL 0.125 mg QID PRN Administration dyspepsia Potassium Chloride 100 mls @ 50 mls/hr 04/01/24 10:01 Kcl 20 Meq/Sw 100 Ml IVPB 04/01/24 12:00 ONCE STA Magnesium Hydroxide 30 ml 03/31/24 17:00 04/01/24 08:18 Magnesium Hydroxide Susp 30 Ml Udc PO 30 ml BID YARA Administration Metoclopramide HCl 10 mg 03/31/24 17:00 04/01/24 08:20 Metoclopramide Hcl 10 Mg Tablet PO 10 mg BID YARA Administration Multivitamins/Calcium 1 tablet 03/17/24 09:00 03/29/24 11:05 Therapeutic Multivitamins/Minerals Tab (*Bkc) PO Not Given DAILY [facility] Neomycin/Polymyxin/Bacitracin 1 applic 03/21/24 12:00 03/30/24 09:00 Neomycin/Polymyxin/Bacitracin Ointment 15 Gm Tube TOPICAL 1 applic QAM YARA Administration Ondansetron HCl 4 mg 03/29/24 03:10 03/29/24 09:36 Ondansetron Inj 4 Mg/2 Ml Vial IV PUSH 4 mg Q4H PRN Administration Nausea And Vomiting Oxycodone/Acetaminophen 1 tab 03/16/24 18:42 03/28/24 21:59 Oxycodone/Acetaminophen (*Crx) 10-325 Mg Tablet PO 1 tab Q6H PRN Administration Pain Rated 7-10 Saccharomyces Boulardii 250 mg 03/22/24 13:00 04/01/24 08:19 Saccharomyces Boulardii 250 Mg Capsule PO 250 mg TID YARA Administration Sacubitril/Valsartan 1 tab 03/30/24 21:00 04/01/24 08:19 Sacubitril/Valsartan 24-26 Mg Tablet PO 1 tab Q12HR YARA Administration Simethicone 80 mg 03/30/24 13:00 04/01/24 08:19 Simethicone 80 Mg Tab.Chew PO 80 mg QID YARA Administration Radiology Results: ITS Impressions Abdomen/Pelvis CT 03/27/24 13:18 IMPRESSION: Air and fluid opacification of the distal colon and rectum. No obstruction. Abnormal left adrenal gland for which follow-up contrast enhanced CT or MRI with renal mass protocol is recommended, if the patient is clinically able. Nonobstructing renal calculi. Cholelithiasis. Bilateral pleural effusions with adjacent compressive atelectasis. Abdomen X-Ray 03/31/24 10:17 IMPRESSION: 1. Distended colon, consistent with adynamic ileus. Labs Labs: Laboratory Results - last 24 hr 03/31/24 04/01/24 15:38 08:31 WBC 3.3 L RBC 3.64 L Hgb 10.2 L Hct 32.6 L MCV 89.6 MCH 28.0 MCHC 31.3 L RDW 16.1 H Plt Count 155 MPV 10.4 Sodium 146 H Potassium 2.5 L 2.6 L Chloride 108 Carbon Dioxide 24 Anion Gap 14 H BUN 6 L Creatinine 0.75 Estim Creat Clear Calc 72 Estimated GFR > 60 Glucose 101 H Calculated Osmolality 299 H Calcium 7.1 L Magnesium 1.9
[2024-04-01] MEDS: KCL 20 MEQ/SW 100 ML 100 ML 50 MEQ IVPB (10:31)
[2024-04-01 16:00] VITALS: BP 113/51; PULSE 71; RESP 16; TEMP 36.3; O2SAT 99
[2024-04-01] MEDS: POTASSIUM CHLORIDE 20 MEQ ER TABLET PO (16:34)
[2024-04-01] MEDS: ACETAMINOPHEN 325 MG TABLET 650 MG PO (21:49)
[2024-04-02] VITALS: BP 113/54; PULSE 69; RESP 16; TEMP 36.8; O2SAT 96
[2024-04-02 07:55] VITALS: BP 115/54; PULSE 70; RESP 18; TEMP 36.3; O2SAT 97
[2024-04-02 08:25] VITALS: PULSE 70; RESP 18; O2SAT 97
[2024-04-02] MEDS: MAGNESIUM HYDROXIDE SUSP 30 ML UDC PO ×2 (10:03→17:15)
[2024-04-02] MEDS: SACUBITRIL/VALSARTAN 24-26 MG TABLET 1 TAB PO ×2 (10:03→21:52)
[2024-04-02] MEDS: FAMOTIDINE 20 MG/2 ML VIAL IV PUSH ×2 (10:03→21:52)
[2024-04-02] MEDS: FOLIC ACID 1 MG TABLET FEED TUBE (10:03)
[2024-04-02] MEDS: METOCLOPRAMIDE HCL 10 MG TABLET PO ×2 (10:04→17:15)
[2024-04-02] MEDS: SIMETHICONE 80 MG TAB.CHEW PO ×4 (10:04→21:52)
[2024-04-02] MEDS: DICYCLOMINE HCL 10 MG CAPSULE 20 MG PO ×3 (10:04→17:16)
[2024-04-02] MEDS: SACCHAROMYCES BOULARDII 250 MG CAPSULE PO ×3 (10:04→17:16)
[2024-04-02] MEDS: POTASSIUM CHLORIDE 20 MEQ ER TABLET PO ×2 (10:04→17:15)
--- NOTE | 2024-04-02 14:25 | P.PNIM_ITS ---
Progress Note: A&P Assessment and Plan (1) Adynamic ileus: Code(s): K56.0 - Paralytic ileus Status: Acute Assessment and Plan: Patient with continued ABD pain, ABD distention, diarrhea, hyperactive bowels, and new onset vomiting * CT ABD 03/27 Air and fluid opacification of the distal colon and rectum.No obstruction. * NG ordered for decompression intermittent low suction * KUB: adynamic ileus * Will resume simethicone 80 mg p.o. q.i.d. for gas pain * NPO * IV fluids maintenance Monitor for fluid overload HX of HF * KUB daily for resolution * Holding some medication, substituting for IV if I can or per tube 03/30 * patient denies any nausea or vomiting * KUB yesterday showed adynamic ileus * patient had multiple bowel movements overnight and is passing gas today. * Recheck KUB shown gaseous distention of the colon, consistent with adynamic ileus. * Continue simethicone * Encourage ambulation * May need transfer to tertiary care for general surgery and possible GI consult due to ileus. * will discontinue IV fluids and start patient back on diet * 03/31 * IV Reglan BID * MOM BID * KUB in am * continue to monitor * ICE Chips 04/02 * continue IV Reglan and milk of magnesia * will repeat a CT scan of the abdomen today * continue to monitor (2) Vomiting: Code(s): R11.10 - Vomiting, unspecified Status: Acute Assessment and Plan: 03/30 * denies any nausea vomiting today 04/02 * no change (3) Diarrhea: Code(s): R19.7 - Diarrhea, unspecified Status: Acute Assessment and Plan: * continue Imodium * Will start simethicone 80 mg p.o. q.i.d. for gas pain 03/20 * will check C diff today 03/27: * C diff and stool cultures negative * CT ABD with proctocolitis * dicyclomine add patient with GI spasms * Diarrhea improving * doxycycline * added rifaximin d/c simethicone 03/29: * C-diff negative * Stool culture negative 03/30 * continue rifaximin * patient has had quite a few loose stools through the night * will continue probiotic today 04/02 * rifaximin discontinued * diarrhea subsided * continue probiotic (4) Weakness: Code(s): R53.1 - Weakness Status: Acute Assessment and Plan: * continue PT and OT 03/20 * no change to current treatment plan 03/30 * continue PT and OT * plan for discharge on Thursday with [facility] 04/02 * continue PT and OT (5) Pressure injury: Code(s): L89.90 - Pressure ulcer of unspecified site, unspecified stage Status: Acute Assessment and Plan: * pressure injury to bilateral heels and sacral area * offload on heels * Q 2 turns * Allevyn to areas * heal protectors * wound consult placed 03/30 * continue offload heels * use Mepilex to bilateral heels and sacrum * continue to monitor 04/02 * no change to current treatment plan (6) Closed intertrochanteric fracture of femur: Qualifiers: Encounter type: initial encounter Fracture alignment: displaced Laterality: left Qualified Code(s): S72.142A - Displaced intertrochanteric fracture of left femur, initial encounter for closed fracture Code(s): S72.143A - Displaced intertrochanteric fracture of unspecified femur, initial encounter for closed fracture Status: Acute Assessment and Plan: * status post ORIF of left femur intratrochanteric fracture with cephalomedullary nail by Dr. Brenner * continue heparin b.i.d. for DVT prophylaxis * continue PT and OT 03/20 * heparin currently on hold due to hematuria yesterday, still pink tinged urine today Will continue to hold heparin for now * continue PT and OT 03/30 * continue PT and OT 04/02 * no change to current treatment plan L (7) CHF (congestive heart failure): Code(s): I50.9 - Heart failure, unspecified Status: Acute Assessment and Plan: * continue Coreg, Lasix, Entresto 03/20 * no change to current treatment plan 03/30 * changed Lasix to p.o. 04/02 * no change (8) Cellulitis: Code(s): L03.90 - Cellulitis, unspecified Status: Resolved Assessment and Plan: * currently on Augmentin and linezolid * continue Villeda catheter 03/20 * therapy complete (9) Proctocolitis: Code(s): K52.9 - Noninfective gastroenteritis and colitis, unspecified Status: Acute Assessment and Plan: * CT ABD: Diarrhea with mild wall thickening and surrounding inflammatory stranding at the rectum and distal sigmoid colon consistent with a distal proctocolitis. * Doxycycline * Still with distention and tenderness * F/U CT ABD COMPLETED treatment Plan Time Spent With Patient Time with patient: 15 - 25 minutes Subjective Date/time seen: 04/02/24 14:25 Interval history: Interval history: This is a 83-year-old male with a significant past medical history of Parkinson's disease, GERD, pneumonia, pulmonary embolism, DVT, pacemaker who presented to [facility] for swing bed program. Patient was recently hospitalized at [facility] from 03/04/24-03/16/24 after sustaining a ground level fall and fracturing his left femur. He was taken to the OR on 03/08/2024 for an ORIF of his left femur intertrochanteric fracture with cephalomedullary nail With Dr. Thurman. In the postop. He was noted to have a adynamic ileus and general surgery was consulted for management of the ileus. He also was being followed by Urology due to some scrotal edema that he developed postoperatively. He did have an ultrasound of the scrotum which showed possible cellulitis however it was ruled out by urology services. Patient was however treated with Zyvox and Augmentin. Patient denies any fever, chills, nausea, vomiting, chest pain, or shortness of breath. He endorses abdominal pain due to gas and diarrhea. Subjective: patient states that he is feeling much better today. His abdomen is still distended any still has hyperactive bowel sounds. He states that the diarrhea has subsided. KUB this morning is still showing an ileus. We will go ahead and get a CT scan today this was discussed with the and the patient. Labs reviewed. Review of Systems Review of Systems: All systems reviewed & are unremarkable except as noted in HPI and below Constitutional: Constitutional: Reports as per HPI and Reports no additional constitutional complaints Eyes: Eyes: Reports as per HPI and Reports no additional eye complaints ENT: Reports system reviewed and no additional complaints, except as documented and Reports as per HPI Cardiovascular: Cardiovascular: Reports as per HPI and Reports no additional cardiovascular complaints Respiratory: Respiratory: Reports as per HPI and Reports no additional respiratory complaints Gastrointestinal: Gastrointestinal: Reports as per HPI and Reports no additional gastrointestinal complaints Genitourinary: Genitourinary: Reports no additional male genitourinary complaints and Reports as per HPI Musculoskeletal: Musculoskeletal: Reports no additional musculoskeletal complaints and Reports as per HPI Integumentary/Breasts: Skin/Breast: Reports system reviewed and no additional complaints, except as docu and Reports as per HPI Neurologic: Reports system reviewed and no additional complaints, except as documented and Reports as per HPI Psychiatric: Psychiatric: Reports no additional psychiatric complaints and Reports as per HPI Exam Narrative: General: In no acute distress, well nourished Cardiac: Normal S1 and S2. No murmur, gallops or friction rubs, peripheral pulses intact. Respiratory: Lungs clear to auscultation, no adventitious lung sounds, currently on room air Gastrointestinal: Distended, taut, non-tender, hyperactive bowel sounds, Passing flatus Extremities: moves all extremities well, no edema Neuro: Alert and oriented x4 Objective Data Vital Signs Vital Signs: Vital Signs - 24 hr 04/01/24 16:00 04/02/24 00:00 04/02/24 07:55 Temperature 97.3 F L 98.2 F 97.3 F L Pulse Rate 71 69 70 Respiratory Rate 16 16 18 Blood Pressure 113/51 L 113/54 L 115/54 L Pulse Oximetry 99 96 97 Oxygen Delivery Room Air Room Air Room Air 04/02/24 08:25 Temperature Pulse Rate 70 Respiratory Rate 18 Blood Pressure Pulse Oximetry 97 Oxygen Delivery Room Air Intake/Output Intake/Output: Intake & Output 03/30/24 03/31/24 04/01/24 04/02/24 23:59 23:59 23:59 23:59 Intake Total 1935 640.0 330 0 Output Total 1825 1250 1075 500 Balance 110 -610.0 -745 -500 Meds/Results Medications: Active Medications Generic Name Dose Route Start Last Admin Trade Name Freq PRN Reason Stop Dose Admin Acetaminophen 650 mg 03/31/24 11:12 04/01/24 21:49 Acetaminophen 325 Mg Tablet PO 650 mg Q6H PRN Administration Mild Pain (1-3) or Fever Carvedilol 1.56 mg 03/17/24 21:00 03/29/24 11:05 Carvedilol 1.56 Mg Tablet PO Not Given Q12HR [facility] Dicyclomine HCl 20 mg 03/27/24 13:00 04/02/24 10:04 Dicyclomine Hcl 10 Mg Capsule PO 20 mg TID YARA Administration Famotidine 20 mg 03/29/24 11:00 04/02/24 10:03 Famotidine 20 Mg/2 Ml Vial IV PUSH 20 mg Q12HR YARA Administration Folic Acid 1 mg 03/30/24 09:00 04/02/24 10:03 Folic Acid 1 Mg Tablet FEED TUBE 1 mg DAILY YARA Administration Furosemide 20 mg 03/17/24 09:00 04/01/24 08:20 Furosemide 20 Mg Tablet PO 20 mg QAM YARA Administration Hydralazine HCl 10 mg 03/29/24 10:16 Hydralazine Hcl 20 Mg/Ml Vial IV PUSH Q8H PRN Blood Pressure - High Hyoscyamine 0.125 mg 03/16/24 18:42 03/28/24 21:59 Hyoscyamine Sulfate 0.125 Mg Tablet SUBLINGUAL 0.125 mg QID PRN Administration dyspepsia Magnesium Hydroxide 30 ml 03/31/24 17:00 04/02/24 10:03 Magnesium Hydroxide Susp 30 Ml Udc PO 30 ml BID YARA Administration Metoclopramide HCl 10 mg 03/31/24 17:00 04/02/24 10:04 Metoclopramide Hcl 10 Mg Tablet PO 10 mg BID YARA Administration Multivitamins/Calcium 1 tablet 03/17/24 09:00 03/29/24 11:05 Therapeutic Multivitamins/Minerals Tab (*Bkc) PO Not Given DAILY [facility] Neomycin/Polymyxin/Bacitracin 1 applic 03/21/24 12:00 03/30/24 09:00 Neomycin/Polymyxin/Bacitracin Ointment 15 Gm Tube TOPICAL 1 applic QAM [facility] Administration Ondansetron HCl 4 mg 03/29/24 03:10 03/29/24 09:36 Ondansetron Inj 4 Mg/2 Ml Vial IV PUSH 4 mg Q4H PRN Administration Nausea And Vomiting Oxycodone/Acetaminophen 1 tab 03/16/24 18:42 03/28/24 21:59 Oxycodone/Acetaminophen (*Crx) 10-325 Mg Tablet PO 1 tab Q6H PRN Administration Pain Rated 7-10 Potassium Chloride 20 meq 04/01/24 17:00 04/02/24 10:04 Potassium Chloride 20 Meq Er Tablet PO 20 meq BIDWM AYRA Administration Saccharomyces Boulardii 250 mg 03/22/24 13:00 04/02/24 10:04 Saccharomyces Boulardii 250 Mg Capsule PO 250 mg TID YARA Administration Sacubitril/Valsartan 1 tab 03/30/24 21:00 04/02/24 10:03 Sacubitril/Valsartan 24-26 Mg Tablet PO 1 tab Q12HR YARA Administration Simethicone 80 mg 03/30/24 13:00 04/02/24 10:04 Simethicone 80 Mg Tab.Chew PO 80 mg QID YARA Administration Radiology Results: ITS Impressions Abdomen/Pelvis CT 03/27/24 13:18 IMPRESSION: Air and fluid opacification of the distal colon and rectum. No obstruction. Abnormal left adrenal gland for which follow-up contrast enhanced CT or MRI with renal mass protocol is recommended, if the patient is clinically able. Nonobstructing renal calculi. Cholelithiasis. Bilateral pleural effusions with adjacent compressive atelectasis. Abdomen X-Ray 04/01/24 11:19 IMPRESSION: 1. Unchanged gaseous distention of the colon consistent with adynamic ileus. Quality VTE Prophylaxis VTE prophylaxis: pharmacologic ordered
[2024-04-02 16:45] VITALS: BP 109/51; PULSE 78; RESP 16; TEMP 36.1; O2SAT 99
[2024-04-03] VITALS: BP 114/67; PULSE 60; RESP 16; TEMP 36.8; O2SAT 96
[2024-04-03 01:26] LABS: Basophils Absolute Auto 0.01 K/mm3 (0.00-0.10); Basophils Percent Auto 0.3 % (0.0-1.0); Eosinophils Absolute Auto 0.04 K/mm3 (0.02-0.50); Eosinophils Percent Auto 1.2 % (1.0-6.0); Hematocrit 31.4 % (37.0-46.0); Hemoglobin 9.5 g/dL (12.4-15.3); Immature Granulocyte Absolute 0.01 K/mm3 (0.00-0.00); Immature Granulocyte Percent A 0.3 % (0.0-0.0); Lymphocytes Percent Auto 31.1 % (18.0-42.0); Mean Corpuscular HGB Conc 30.3 g/dL (32-36); Mean Corpuscular Hemoglobin 27.7 pg (27.0-31.0); Mean Corpuscular Volume 91.5 fL (78.0-102.0); Mean Platelet Volume 11.3 fl (8.7-11.0); Monocytes Absolute Auto 0.29 K/mm3 (0.10-0.90); Neutrophils Absolute Auto 1.87 K/mm3 (1.70-7.20); Neutrophils Percent Auto 58.1 % (50.0-70.0); Platelet Count Result 127 K/mm3 (150-420); Red Blood Count 3.43 M/mm3 (4.70-6.10); White Blood Count 3.2 K/mm3 (4.8-10.8)
[2024-04-03 03:41] LABS: Alanine Aminotransferase 14 U/L (16-63); Alkaline Phosphatase 169 U/L (46-116); Bilirubin,Total 0.6 mg/dL (0.00-1.00); Estimated CRCL calculation 77 ml/min; Estimated Glomerular Filt Rate > 60; Total Protein 5.6 g/dL (6.4-8.2)
[2024-04-03 04:05] LABS: Albumin Level 2.6 g/dL (3.4-5.0); Anion Gap 13 mmol/L (4-12); Aspartate Amino Transferase 32 U/L (15-37); Blood Urea Nitrogen 5 mg/dL (7-18); Calcium 6.8 mg/dL (8.5-10.1); Carbon Dioxide 22 mmol/L (21-32); Chloride 110 mmol/L (98-108); Glucose 93 mg/dL (70-99); Osmolality Calculated 297 mOsm/kg (285-295); Sodium 145 mmol/L (136-145)
[2024-04-03 05:00] LABS: Potassium 2.3 mmol/L (3.5-5.1)
--- NOTE | 2024-04-03 06:04 | PC.NURSE ---
Kailyn Benavidez NP, notified of critical potassium value; New order for 40 MEQ KCL PO x1 now.
[2024-04-03] MEDS: POTASSIUM CHLORIDE 20 MEQ ER TABLET 40 MEQ PO ×2 (06:23→12:43)
[2024-04-03 08:00] VITALS: BP 118/53; PULSE 69; RESP 18; TEMP 36.9; O2SAT 97
[2024-04-03] MEDS: METOCLOPRAMIDE HCL 10 MG TABLET PO ×2 (08:40→17:18)
[2024-04-03] MEDS: SACCHAROMYCES BOULARDII 250 MG CAPSULE PO ×2 (08:40→12:43)
[2024-04-03] MEDS: FAMOTIDINE 20 MG/2 ML VIAL IV PUSH (08:40)
[2024-04-03] MEDS: SACUBITRIL/VALSARTAN 24-26 MG TABLET 1 TAB PO (08:40)
[2024-04-03] MEDS: POTASSIUM CHLORIDE 20 MEQ ER TABLET PO (08:40)
[2024-04-03] MEDS: FOLIC ACID 1 MG TABLET FEED TUBE (08:40)
[2024-04-03] MEDS: SIMETHICONE 80 MG TAB.CHEW PO ×3 (08:40→17:18)
[2024-04-03] MEDS: MAGNESIUM HYDROXIDE SUSP 30 ML UDC PO ×2 (08:41→17:04)
[2024-04-03] MEDS: DICYCLOMINE HCL 10 MG CAPSULE 20 MG PO ×3 (08:41→17:18)
--- NOTE | 2024-04-03 08:43 | P.PNIM_ITS ---
Progress Note: A&P Assessment and Plan (1) Adynamic ileus: Code(s): K56.0 - Paralytic ileus Status: Acute Assessment and Plan: Patient with continued ABD pain, ABD distention, diarrhea, hyperactive bowels, and new onset vomiting * CT ABD 2/2 Air and fluid opacification of the distal colon and rectum.No obstruction. * NG ordered for decompression intermittent low suction * KUB: adynamic ileus * Will resume simethicone 80 mg p.o. q.i.d. for gas pain * NPO * IV fluids maintenance Monitor for fluid overload HX of HF * KUB daily for resolution * Holding some medication, substituting for IV if I can or per tube 03/30 * patient denies any nausea or vomiting * KUB yesterday showed adynamic ileus * patient had multiple bowel movements overnight and is passing gas today. * Recheck KUB shown gaseous distention of the colon, consistent with adynamic ileus. * Continue simethicone * Encourage ambulation * May need transfer to tertiary care for general surgery and possible GI consult due to ileus. * will discontinue IV fluids and start patient back on diet * 03/31 * IV Reglan BID * MOM BID * KUB in am * continue to monitor * ICE Chips 04/02 * continue IV Reglan and milk of magnesia * will repeat a CT scan of the abdomen today * continue to monitor 04/03 * CT the abdomen showing sigmoid colitis and proctitis likely resulting in large bowel ileus however obstruction not excluded * Patient placed on list for transfer to [facility] for general surgery consult (2) Vomiting: Code(s): R11.10 - Vomiting, unspecified Status: Acute Assessment and Plan: 03/30 * denies any nausea vomiting today 04/02 * no change (3) Diarrhea: Code(s): R19.7 - Diarrhea, unspecified Status: Acute Assessment and Plan: * continue Imodium * Will start simethicone 80 mg p.o. q.i.d. for gas pain 03/20 * will check C diff today 03/27: * C diff and stool cultures negative * CT ABD with proctocolitis * dicyclomine add patient with GI spasms * Diarrhea improving * doxycycline * added rifaximin d/c simethicone 03/29: * C-diff negative * Stool culture negative 03/30 * continue rifaximin * patient has had quite a few loose stools through the night * will continue probiotic today 04/02 * rifaximin discontinued * diarrhea subsided * continue probiotic 04/03 * No change to current treatment (4) Weakness: Code(s): R53.1 - Weakness Status: Acute Assessment and Plan: * continue PT and OT 03/20 * no change to current treatment plan 03/30 * continue PT and OT * plan for discharge on Thursday with [facility] 04/02 * continue PT and OT 04/03 * No change (5) Pressure injury: Code(s): L89.90 - Pressure ulcer of unspecified site, unspecified stage Status: Acute Assessment and Plan: * pressure injury to bilateral heels and sacral area * offload on heels * Q 2 turns * Allevyn to areas * heal protectors * wound consult placed 03/30 * continue offload heels * use Mepilex to bilateral heels and sacrum * continue to monitor 04/02 * no change to current treatment plan (6) Closed intertrochanteric fracture of femur: Qualifiers: Encounter type: initial encounter Fracture alignment: displaced Laterality: left Qualified Code(s): S72.142A - Displaced intertrochanteric fracture of left femur, initial encounter for closed fracture Code(s): S72.143A - Displaced intertrochanteric fracture of unspecified femur, initial encounter for closed fracture Status: Acute Assessment and Plan: * status post ORIF of left femur intratrochanteric fracture with cephalomedullary nail by Dr. Brenner * continue heparin b.i.d. for DVT prophylaxis * continue PT and OT 03/20 * heparin currently on hold due to hematuria yesterday, still pink tinged urine today Will continue to hold heparin for now * continue PT and OT 03/30 * continue PT and OT 04/02 * no change to current treatment plan (7) CHF (congestive heart failure): Code(s): I50.9 - Heart failure, unspecified Status: Acute Assessment and Plan: * continue Catarina Lopez Entresto 03/20 * no change to current treatment plan 03/30 * changed Lasix to p.o. 04/02 * no change Plan Time Spent With Patient Time with patient: 25 - 35 minutes Subjective Date/time seen: 04/03/24 08:43 Interval history: Interval history: This is a 83-year-old male with a significant past medical history of Parkinson's disease, GERD, pneumonia, pulmonary embolism, DVT, pacemaker who presented to [facility] for swing bed program. Patient was recently hospitalized at [facility] from 03/04/24-03/16/24 after sustaining a ground level fall and fracturing his left femur. He was taken to the OR on 03/08/2024 for an ORIF of his left femur intertrochanteric fracture with cephalomedullary nail With Dr. Thurman. In the postop. He was noted to have a adynamic ileus and general surgery was consulted for management of the ileus. He also was being followed by Urology due to some scrotal edema that he developed postoperatively. He did have an ultrasound of the scrotum which showed possible cellulitis however it was ruled out by urology services. Patient was however treated with Zyvox and Augmentin. Patient denies any fever, chills, nausea, vomiting, chest pain, or shortness of breath. He endorses abdominal pain due to gas and diarrhea. 04/02/24 CT scan of the abdomen showed distal sigmoid colitis and proctitis resulting in large bowel ileus however obstruction not excluded, cystitis, likely decreased size of the peripherally enhancing fat and fluid collection surrounding the internal fixation of the left intratrochanteric fracture, multiple pancreatic cyst 3.9 cm infrarenal abdominal aortic aneurysm. Patient placed on list for transfer at [facility] for general surgery consult. Subjective: Patient reports abdominal distension again today. CT still showing large bowel ileus, obstruction not excluded. Labs reviewed. Review of Systems Review of Systems: All systems reviewed & are unremarkable except as noted in HPI and below Constitutional: Constitutional: Reports as per HPI and Reports no additional constitutional complaints Eyes: Eyes: Reports as per HPI and Reports no additional eye complaints ENT: Reports system reviewed and no additional complaints, except as documented and Reports as per HPI Cardiovascular: Cardiovascular: Reports as per HPI and Reports no additional cardiovascular complaints Respiratory: Respiratory: Reports as per HPI and Reports no additional respira tory complaints Gastrointestinal: Gastrointestinal: Reports as per HPI and Reports no additional gastrointestinal complaints Genitourinary: Genitourinary: Reports no additional male genitourinary complaints and Reports as per HPI Musculoskeletal: Musculoskeletal: Reports no additional musculoskeletal complaints and Reports as per HPI Integumentary/Breasts: Skin/Breast: Reports system reviewed and no additional complaints, except as docu and Reports as per HPI Neurologic: Reports system reviewed and no additional complaints, except as documented and Reports as per HPI Psychiatric: Psychiatric: Reports no additional psychiatric complaints and Reports as per HPI Exam Narrative: General: In no acute distress, well nourished Cardiac: Normal S1 and S2. No murmur, gallops or friction rubs, peripheral pulses intact. Respiratory: Lungs clear to auscultation, no adventitious lung sounds, currently on room air Gastrointestinal: Distended, taut, non-tender, hyperactive bowel sounds, Passing flatus Extremities: moves all extremities well, no edema Neuro: Alert and oriented x4 Objective Data Vital Signs Vital Signs: Vital Signs - 24 hr 04/02/24 16:45 04/03/24 00:00 Temperature 97 F L 98.2 F Pulse Rate 78 60 Respiratory Rate 16 16 Blood Pressure 109/51 L 114/67 Pulse Oximetry 99 96 Oxygen Delivery Room Air Room Air Intake/Output Intake/Output: Intake & Output 03/31/24 04/01/24 04/02/24 04/03/24 23:59 23:59 23:59 23:59 Intake Total 640.0 330 100 50 Output Total 1250 1075 900 300 Balance -610.0 -745 -800 -250 Meds/Results Medications: Active Medications Generic Name Dose Route Start Last Admin Trade Name Kevynq PRN Reason Stop Dose Admin Acetaminophen 650 mg 03/31/24 11:12 04/01/24 21:49 Acetaminophen 325 Mg Tablet PO 650 mg Q6H PRN Administration Mild Pain (1-3) or Fever Carvedilol 1.56 mg 03/17/24 21:00 03/29/24 11:05 Carvedilol 1.56 Mg Tablet PO Not Given Q12HR YARA Dicyclomine HCl 20 mg 03/27/24 13:00 04/03/24 08:41 Dicyclomine Hcl 10 Mg Capsule PO 20 mg TID YARA Administration Famotidine 20 mg 03/29/24 11:00 04/03/24 08:40 Famotidine 20 Mg/2 Ml Vial IV PUSH 20 mg Q12HR YARA Administration Folic Acid 1 mg 03/30/24 09:00 04/03/24 08:40 Folic Acid 1 Mg Tablet FEED TUBE 1 mg DAILY YARA Administration Furosemide 20 mg 03/17/24 09:00 04/01/24 08:20 Furosemide 20 Mg Tablet PO 20 mg QAM YARA Administration Hydralazine HCl 10 mg 03/29/24 10:16 Hydralazine Hcl 20 Mg/Ml Vial IV PUSH Q8H PRN Blood Pressure - High Hyoscyamine 0.125 mg 03/16/24 18:42 03/28/24 21:59 Hyoscyamine Sulfate 0.125 Mg Tablet SUBLINGUAL 0.125 mg QID PRN Administration dyspepsia Magnesium Hydroxide 30 ml 03/31/24 17:00 04/03/24 08:41 Magnesium Hydroxide Susp 30 Ml Udc PO 30 ml BID YARA Administration Metoclopramide HCl 10 mg 03/31/24 17:00 04/03/24 08:40 Metoclopramide Hcl 10 Mg Tablet PO 10 mg BID YARA Administration Multivitamins/Calcium 1 tablet 03/17/24 09:00 03/29/24 11:05 Therapeutic Multivitamins/Minerals Tab (*Bkc) PO Not Given DAILY [facility] Neomycin/Polymyxin/Bacitracin 1 applic 03/21/24 12:00 03/30/24 09:00 Neomycin/Polymyxin/Bacitracin Ointment 15 Gm Tube TOPICAL 1 applic QAM YARA Administration Ondansetron HCl 4 mg 03/29/24 03:10 03/29/24 09:36 Ondansetron Inj 4 Mg/2 Ml Vial IV PUSH 4 mg Q4H PRN Administration Nausea And Vomiting Oxycodone/Acetaminophen 1 tab 03/16/24 18:42 03/28/24 21:59 Oxycodone/Acetaminophen (*Crx) 10-325 Mg Tablet PO 1 tab Q6H PRN Administration Pain Rated 7-10 Potassium Chloride 20 meq 04/01/24 17:00 04/03/24 08:40 Potassium Chloride 20 Meq Er Tablet PO 20 meq BIDWM [facility] Administration Saccharomyces Boulardii 250 mg 03/22/24 13:00 04/03/24 08:40 Saccharomyces Boulardii 250 Mg Capsule PO 250 mg TID YARA Administration Sacubitril/Valsartan 1 tab 03/30/24 21:00 04/03/24 08:40 Sacubitril/Valsartan 24-26 Mg Tablet PO 1 tab Q12HR YARA Administration Simethicone 80 mg 03/30/24 13:00 04/03/24 08:40 Simethicone 80 Mg Tab.Chew PO 80 mg QID YARA Administration Radiology Results: ITS Impressions Abdomen X-Ray 04/01/24 11:19 IMPRESSION: 1. Unchanged gaseous distention of the colon consistent with adynamic ileus. Abdomen/Pelvis CT 04/02/24 17:06 IMPRESSION: Distal sigmoid colitis and proctitis, likely resulting in large bowel ileus. Obstruction not excluded. Cystitis. Slightly decreased size of the peripherally enhancing fat and fluid collection surrounding the internally fixated left intertrochanteric fracture, presumably posttraumatic/postsurgical change. Infection/abscess not excluded. Multiple pancreatic cysts. 3.9 cm infrarenal abdominal aortic aneurysm. Recommend CT abdomen and pelvis with contrast follow-up in 2 years for both findings. Labs Labs: Laboratory Results - last 24 hr 04/03/24 01:03 WBC 3.2 L RBC 3.43 L Hgb 9.5 L Hct 31.4 L MCV 91.5 MCH 27.7 MCHC 30.3 L RDW 16.0 H Plt Count 127 L MPV 11.3 H Immature Gran % (Auto) 0.3 H Neut % (Auto) 58.1 Lymph % (Auto) 31.1 [place] % (Auto) 9.0 Eos % (Auto) 1.2 Baso % (Auto) 0.3 Lymph # (Auto) 1.00 L [place] # (Auto) 0.29 Eos # (Auto) 0.04 Baso # (Auto) 0.01 Abs Immat Gran (auto) 0.01 H Absolute Neuts (auto) 1.87 Absolute Nucleated RBC 0.00 Nucleated RBC % 0.0 Sodium 145 Potassium 2.3 L* Chloride 110 H Carbon Dioxide 22 Anion Gap 13 H BUN 5 L Creatinine 0.70 Estim Creat Clear Calc 77 Estimated GFR > 60 Glucose 93 Calculated Osmolality 297 H Calcium 6.8 L Total Bilirubin 0.6 AST 32 ALT 14 L Alkaline Phosphatase 169 H Total Protein 5.6 L Albumin 2.6 L Quality VTE Prophylaxis VTE prophylaxis: pharmacologic ordered
[2024-04-03 15:45] VITALS: BP 128/59; PULSE 65; RESP 16; TEMP 36.6; O2SAT 98
--- NOTE | 2024-04-03 16:05 | PC.NURSE ---
Patient being transferred to [facility], Bed 323, Report called to Vanessa at 1600. #[phone].
--- NOTE | 2024-04-03 18:14 | P.TS_ITS ---
Transfer Discharge Sum: Prov Provider Date of admission: 03/16/24 17:40 Primary care physician: Georgiana Tripp DO Admitting clinician: Anthony Jackman MD Consults: 03/25/24 Wound/ET Consult Routine Reason for Consult:: Bilateral heels and buttocks Attending physician on discharge: Per Jackman Discharging clinician: Joselyn Benavidez Anticipated date of transfer: 04/03/24 [facility]: Admitting Diagnosis Discharge Date 04/03/24 Admitting Diagnosis Rehab DS: Discharge Diagnosis Discharge Diagnosis (1) Adynamic ileus: Code(s): K56.0 - Paralytic ileus Status: Acute (2) Vomiting: Code(s): R11.10 - Vomiting, unspecified Status: Acute (3) Diarrhea: Code(s): R19.7 - Diarrhea, unspecified Status: Acute (4) Weakness: Code(s): R53.1 - Weakness Status: Acute (5) Pressure injury: Code(s): L89.90 - Pressure ulcer of unspecified site, unspecified stage Status: Acute (6) Closed intertrochanteric fracture of femur: Qualifiers: Encounter type: initial encounter Fracture alignment: displaced Laterality: left Qualified Code(s): S72.142A - Displaced intertrochanteric fracture of left femur, initial encounter for closed fracture Code(s): S72.143A - Displaced intertrochanteric fracture of unspecified femur, initial encounter for closed fracture Status: Acute (7) CHF (congestive heart failure): Code(s): I50.9 - Heart failure, unspecified Status: Acute Transfer Discharge Sum: Med Medications Active and Home Medications: Home Medications atorvastatin 80 mg tablet 80 mg PO HS #30 tabs 05/27/19 [Rx Confirmed 03/16/24] apixaban 5 mg tablet 5 mg PO BID 05/23/21 [History Confirmed 03/16/24] famotidine 10 mg tablet 10 mg PO DAILY 05/23/21 [History Confirmed 03/16/24] folic acid 1 mg tablet 1 mg PO DAILY 05/23/21 [History Confirmed 03/16/24] multivitamin-iron 9 mg-folic acid 400 mcg-calcium and minerals tablet (Thera-M) 1 tablet PO DAILY 05/23/21 [History Confirmed 03/16/24] sacubitril 24 mg-valsartan 26 mg tablet 1 tablet PO BID 05/23/21 [History Confirmed 03/16/24] carvedilol 3.125 mg tablet 3.125 mg PO ONCE 12/24/21 [History Confirmed 03/16/24] loperamide 2 mg capsule (Imodium A-D) 2 mg PO Q6H PRN diarrhea 12/24/21 [History Confirmed 03/16/24] hyoscyamine sulfate 0.125 mg sublingual tablet 0.125 mg sublingual QID PRN dyspepsia #120 tabs 03/13/22 [Rx Confirmed 03/16/24] sacubitril 24 mg-valsartan 26 mg tablet (Entresto) 1 tablet PO BID 03/04/24 [History Confirmed 03/16/24] amoxicillin 875 mg-potassium clavulanate 125 mg tablet 1 tablet PO Q12H 3 days #6 tabs 03/16/24 [Rx Confirmed 03/16/24] furosemide 20 mg tablet 20 mg PO QAM 30 days #0 tabs 03/16/24 [Rx Confirmed 03/16/24] oxycodone-acetaminophen 10 mg-325 mg tablet 1 tablet PO Q6H PRN Pain Rated 7-10 5 days #12 tabs 03/16/24 [Rx Confirmed 03/16/24] potassium chloride 20 mEq oral packet 20 meq PO DAILY 5 days #5 ea 03/16/24 [Rx Confirmed 03/16/24] Saccharomyces boulardii 250 mg capsule (Florastor) 250 mg PO TID #10 caps 04/03/24 [Rx] dicyclomine 10 mg capsule 20 mg (2 x 10 mg) PO TID #10 caps 04/03/24 [Rx] magnesium hydroxide 400 mg/5 mL oral suspension (Milk of Magnesia) 30 ml PO BID #355 mL 04/03/24 [Rx] metoclopramide HCl 10 mg tablet (Reglan) 10 mg PO BID #10 tabs 04/03/24 [Rx] potassium chloride 20 mEq tablet,extended release (K-Tab) 40 meq (2 x 20 mEq) PO BIDWM #10 tabs 04/03/24 [Rx] simethicone 80 mg chewable tablet 80 mg PO QID #10 tabs 04/03/24 [Rx] Active Medications Acetaminophen (Acetaminophen 325 Mg Tablet) 650 mg PO Q6H PRN PRN Reason: Mild Pain (1-3) or Fever Last Admin: 04/01/24 21:49 Dose: 650 mg Carvedilol (Carvedilol 1.56 Mg Tablet) 1.56 mg PO Q12HR [facility] Last Admin: 03/29/24 11:05 Dose: Not Given Dicyclomine HCl (Dicyclomine Hcl 10 Mg Capsule) 20 mg PO TID [facility] Last Admin: 04/03/24 17:18 Dose: 20 mg Famotidine (Famotidine 20 Mg/2 Ml Vial) 20 mg IV PUSH Q12HR [facility] Last Admin: 04/03/24 08:40 Dose: 20 mg Folic Acid (Folic Acid 1 Mg Tablet) 1 mg FEED TUBE DAILY [facility] Last Admin: 04/03/24 08:40 Dose: 1 mg Furosemide (Furosemide 20 Mg Tablet) 20 mg PO QAM [facility] Last Admin: 04/01/24 08:20 Dose: 20 mg Hydralazine HCl (Hydralazine Hcl 20 Mg/Ml Vial) 10 mg IV PUSH Q8H PRN PRN Reason: Blood Pressure - High Hyoscyamine (Hyoscyamine Sulfate 0.125 Mg Tablet) 0.125 mg SUBLINGUAL QID PRN PRN Reason: dyspepsia Last Admin: 03/28/24 21:59 Dose: 0.125 mg Magnesium Hydroxide (Magnesium Hydroxide Susp 30 Ml Udc) 30 ml PO BID [facility] Last Admin: 04/03/24 17:04 Dose: 30 ml Metoclopramide HCl (Metoclopramide Hcl 10 Mg Tablet) 10 mg PO BID [facility] Last Admin: 04/03/24 17:18 Dose: 10 mg Multivitamins/Calcium (Therapeutic Multivitamins/Minerals Tab (*Bkc)) 1 tablet PO DAILY [facility] Last Admin: 03/29/24 11:05 Dose: Not Given Neomycin/Polymyxin/Bacitracin (Neomycin/Polymyxin/Bacitracin Ointment 15 Gm Tube) 1 applic TOPICAL QAM [facility] Last Admin: 03/30/24 09:00 Dose: 1 applic Ondansetron HCl (Ondansetron Inj 4 Mg/2 Ml Vial) 4 mg IV PUSH Q4H PRN PRN Reason: Nausea And Vomiting Last Admin: 03/29/24 09:36 Dose: 4 mg Oxycodone/Acetaminophen (Oxycodone/Acetaminophen (*Crx) 10-325 Mg Tablet) 1 tab PO Q6H PRN PRN Reason: Pain Rated 7-10 Last Admin: 03/28/24 21:59 Dose: 1 tab Potassium Chloride (Potassium Chloride 20 Meq Er Tablet) 20 meq PO BIDWM [facility] Last Admin: 04/03/24 17:20 Dose: Not Given Potassium Chloride (Potassium Chloride 20 Meq Er Tablet) 40 meq PO BIDWM [facility] Last Admin: 04/03/24 17:21 Dose: Not Given Saccharomyces Boulardii (Saccharomyces Boulardii 250 Mg Capsule) 250 mg PO TID [facility] Last Admin: 04/03/24 17:21 Dose: Not Given Sacubitril/Valsartan (Sacubitril/Valsartan 24-26 Mg Tablet) 1 tab PO Q12HR [facility] Last Admin: 04/03/24 08:40 Dose: 1 tab Simethicone (Simethicone 80 Mg Tab.Chew) 80 mg PO QID [facility] Last Admin: 04/03/24 17:18 Dose: 80 mg Transfer Discharge Sum: Hosp Hospital Course Hospital course: This is a 83-year-old male with a significant past medical history of Parkinson's disease, GERD, pneumonia, pulmonary embolism, DVT, pacemaker who presented to [facility] for swing bed program. Patient was recently hospitalized at [facility] from 03/04/24-03/16/24 after sustaining a ground level fall and fracturing his left femur. He was taken to the OR on 03/08/2024 for an ORIF of his left femur intertrochanteric fracture with cephalomedullary nail With Dr. Thurman. In the postop. He was noted to have a adynamic ileus and general surgery was consulted for management of the ileus. He also was being followed by Urology due to some scrotal edema that he developed postoperatively. He did have an ultrasound of the scrotum which showed possible cellulitis however it was ruled out by urology services. Patient was however treated with Zyvox and Augmentin. Patient denies any fever, chills, nausea, vomiting, chest pain, or shortness of breath. He endorses abdominal pain due to gas and diarrhea. 04/02/24 CT scan of the abdomen showed distal sigmoid colitis and proctitis resulting in large bowel ileus however obstruction not excluded, cystitis, likely decreased size of the peripherally enhancing fat and fluid collection surrounding the internal fixation of the left intratrochanteric fracture, multiple pancreatic cyst 3.9 cm infrarenal abdominal aortic aneurysm. Patient placed on list for transfer at [facility] for general surgery consult. Final diagnosis: closed intratrochanteric fracture of the left femur, physical deconditioning, adynamic ileus Time Spent with Patient Time attestation: Total time spent providing and/or coordinating transfer services: Total time spent: Greater than 30 minutes Exam Narrative: General: In no acute distress, well nourished Cardiac: Normal S1 and S2. No murmur, gallops or friction rubs, peripheral pulses intact. Respiratory: Lungs clear to auscultation, no adventitious lung sounds, currently on room air Gastrointestinal: Distended, taut, non-tender, hyperactive bowel sounds, Passing flatus Extremities: moves all extremities well, no edema Neuro: Alert and oriented x4 DS: Data Data Completed and Pending Completed studies during hospitalization: Abdominal x-ray x5 CT of the abdomen/pelvis x4 Pending studies at discharge: None Labs on day of discharge: Labs from last 24 hours 04/03/24 01:03 WBC 3.2 L RBC 3.43 L Hgb 9.5 L Hct 31.4 L MCV 91.5 MCH 27.7 MCHC 30.3 L RDW 16.0 H Plt Count 127 L MPV 11.3 H Immature Gran % (Auto) 0.3 H Neut % (Auto) 58.1 Lymph % (Auto) 31.1 [place] % (Auto) 9.0 Eos % (Auto) 1.2 Baso % (Auto) 0.3 Lymph # (Auto) 1.00 L [place] # (Auto) 0.29 Eos # (Auto) 0.04 Baso # (Auto) 0.01 Abs Immat Gran (auto) 0.01 H Absolute Neuts (auto) 1.87 Absolute Nucleated RBC 0.00 Nucleated RBC % 0.0 Sodium 145 Potassium 2.3 L* Chloride 110 H Carbon Dioxide 22 Anion Gap 13 H BUN 5 L Creatinine 0.70 Estim Creat Clear Calc 77 Estimated GFR > 60 Glucose 93 Calculated Osmolality 297 H Calcium 6.8 L Total Bilirubin 0.6 AST 32 ALT 14 L Alkaline Phosphatase 169 H Total Protein 5.6 L Albumin 2.6 L Procedures/Treatments: NOne
--- NOTE | 2024-04-03 19:43 | PC.NURSE ---
[facility] canceled transport. [facility] requested for BLS transfer.
--- NOTE | 2024-04-03 20:45 | PC.NURSE ---
[facility] here to transfer patient to [facility]. following ambulance. Patient A&O x4. Denies pain. Villeda catheter patent and draining clear yellow urine. Abdomen remains distended, round and firm. Denies complaints.
[2024-04-06 19:48] LABS: Calprotectin, Stool 60 mcg/g
== END 2024-04-03 20:45 | disposition short-term general hospital (02) | DRG 560 ==
PROVIDERS: Nurse Practitioner Family; Admitting Provider Internal Medicine; PCP Family Medicine; Visit Provider Nurse Practitioner Acute Care
DX: S72.142D Displaced intertrochanteric fracture of left femur, subsequent encounter for closed fracture with routine healing (principal); K56.0 Paralytic ileus; M96.840 Postprocedural hematoma of a musculoskeletal structure following a musculoskeletal system procedure; I50.9 Heart failure, unspecified; K62.89 Other specified diseases of anus and rectum; K52.9 Noninfective gastroenteritis and colitis, unspecified; L89.629 Pressure ulcer of left heel, unspecified stage; L89.619 Pressure ulcer of right heel, unspecified stage; L89.159 Pressure ulcer of sacral region, unspecified stage; R11.10 Vomiting, unspecified; N30.91 Cystitis, unspecified with hematuria; M19.90 Unspecified osteoarthritis, unspecified site; K21.9 Gastro-esophageal reflux disease without esophagitis; R53.1 Weakness; W19.XXXD Unspecified fall, subsequent encounter; G20.A1 Parkinson's disease without dyskinesia, without mention of fluctuations; Z95.2 Presence of prosthetic heart valve; Z95.0 Presence of cardiac pacemaker; Z86.718 Personal history of other venous thrombosis and embolism; Z86.711 Personal history of pulmonary embolism; Z79.01 Long term (current) use of anticoagulants; Z87.891 Personal history of nicotine dependence
CPT/HCPCS: 36415; 74018; 74176; 74177; 80048; 80053; 83735; 83993; 84132; 84153; 84403; 85025; 85027; 85730; 87045; 87427; 87449; 87493; 87798; 97110; 97161; 97166; 97530; 97535; A9270; J1644; J1940; J2405; J3480; J7050; J7120; Q9967

== ENCOUNTER 2024-04-03 22:04 | Inpatient (IN) | payer MEDICARE, OTHER, SELFPAY ==
--- NOTE | ~2024-04-03 | XR_ITS ---
EXAMINATION: XR abdomen obstructive series DATE: 04/04/2024 08:30 INDICATION: Abdominal distention. TECHNIQUE: Upright and supine views of the abdomen on 3 radiographs were obtained. COMPARISON: Abdomen radiographs 04/01/2024 FINDINGS: There is gaseous distention of the sigmoid colon. The small bowel is normal in caliber. The re is a left chest wall pacer with leads in the right atrium and right ventricle. There is internal f ixation of left femur. IMPRESSION: 1. Persisting gaseous distention of the sigmoid colon, likely adynamic ileus. Reviewed, dictated and finalized at location [facility]. [facility] RN
--- OUTSIDE RECORDS SUMMARY | 2024-04-03 21:31 | XMS_ITS | Encounter Summary ---
Author Organization [facility] Address [address] [facility] [place] [address] Care Team Providers Care Nail Expert Name Role Phone Unknown, Provider Primary Care Provider Unavaila ble Encounter Details Date Type Department Care Team (Late st Contact Info) Description 06/27/2021 Lab Requisition [facility] DermPath Lab [address] [place] [phone] Tito Beniot MD [address] [place] [address] Social History Tobacco Use Types [...] 3:33 AM CDT) Case Report Dermatopathology Report Case: [id number] Authorizing Provider: Tito Benito MD Collected: 06/26/2021 03:33 AM Ordering Location: [facility] Derm[facility] Lab Received: 06/27/2021 01:46 PM Pathologist: Melania Marques MD Specimens: A) - Skin, left med cheek laterall to ala B) - Skin, right cheek C) - Skin, above right lateral brow 6:53 PM CDT DERMATOPATHOLOGY LABORATORY Final Diagnosis Specimen A. 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 SKIN, right cheek: SEBORRHEIC KERATOSIS, IRRITATED (L82.0) Specimen C. SKIN, above right lateral brow: HYPERPLASTIC (HYPERTROPHIC) ACTINIC KERATOSIS; EXTENDING TO THE BASE OF THE SPECIMEN (L57.0) (see microscopic description and comment) 2 6:53 PM T DERMATOPATHOLOGY LABORATORY Clinical History A-C: R/O SCC, HAK, BCC, SK. 2 6:53 PM CDT DERMATOPATHOLOGY LABORATORY Gross Description Specimen A: Received is one formalin filled container labeled with the patient's name and designated left med cheek laterall to ala. The specimen consists of a shave biopsy measuring 2h8n2yq. Jar 0. Specimen B: Received is one formalin filled container labeled with the patient's name and designated right cheek. The specimen consists of a shave biopsy measuring 3o6x4eu. Jar 0. Specimen C: Received is one formalin filled container labeled with the patient's name and designated above right lateral brow. The specimen consists of a shave biopsy measuring 6a5v4tu. Jar 0. 2 6:53 PM CDT DERMATOPATHOLOGY LABORATORY Microscopic Description Specimen [...] cannot be ruled out. 2 6:53 PM CDT DERMATOPATHOLOGY LABORATORY Disclaimer An external and internal positive and negative controls are appropriate for the histochemical, immunohistochemical and immunofluorescence stain(s) in this case (if any), except where stated explicitly. The performance characteristics of the stain(s) cited in this report were developed and its performance characteristic determined by the Dermatopathology Laboratory at [facility], directed by Dr. Preeti Marques. These tests need not be, and therefore are not, approved by the [place] Food and Drug Administration. The tests are used for clinical purposes. Billing Codes Specimen Charges Stain Charges 68499 41434 63866 1 1 1 2 6:53 PM CDT [...] LAB - PATHOLOGY/CYTO LOGY ORDERABLES DERMATOPATHOLOGY LABORATORY [facility] - Department of Dermatology [facility] Medicine [address] [place] [address], [address] [phone] documented in this encounter Visit Diagnoses Not on filedocumented in this encounter Care Teams Nail Expert Relationship Specialty Start Date End Date Unknown, Provider PCP - General 07/09/17 documented as of this encounter
--- OUTSIDE RECORDS SUMMARY | 2024-04-03 21:31 | XMS_ITS | Clinical Summary ---
Author Organization [facility] Address [address] [place] [address] Care Team Providers Care Marketing Information Analyst Name Role Phone None, Provider Primary Care Provider Unavaila ble Social History Tobacco Use Types Packs/Day Years Used Date Smoking Tobacco: Never Assessed Sex and Gender Information Value Date Recorded Sex Assigned at Male 03/25/2024 3:34 PM SEAM CLOSER Legal Sex Male 12:05 PM SEAM CLOSER Gender Identity Not on file Sexual Orientation [...] Immunization or 60+ Years Completed 01/19/2023 Meningococcal B Vaccine Aged Out No l onger eligible based on patient's age to complete this topic Meningococcal Vaccine Aged Out No maurice lucy eligible based on patient's age to complete this topic RSV Immunizations Under 20 Months Aged Out No longer eligible based on patient's age to complete this topic Medical Devices Implanted Type Area Flag Maker Device Identifier Shelf Expiration Date Model / Serial / Lot Ra Lead-01/27/2021 Implanted:Qty: 1 on 01/27/2021 by Sandra Graham MD Lead Implant Right: Atrium BIOTRONIK S0LIA S 45 / [id number] / Rv Lead-01/27/2021 Implanted:Qty: 1 on 01/27/2021 by Sandra Graham MD Lead Implant Right: Ventricle BIOTRONIK SOLIA S 53 / [id number] / Pacemaker-01/27 Implanted:Qty: 1 on 01/27/2021 by Sandra Graham MD Pacemaker Chest BIOTRONIK EDORA 8 DR-T MODEL [id number] / [id number] / Description:MR Conditional u nder following conditions: Static magnetic field of 1.5 T or 3 T, max spatial gradient field of 3000 gauss/cm or less, Max slew rate 200 T/m/s, Max whole body DAMIAN of 2 w/kg or less, Head DAMIAN 3.2 W/kg or less, Max 30 minutes active scan time in 60 minute window Insurance MED REPLACE [facility] MEDICARE Care Teams Marketing Information Analyst Relationship Specialty Start Date End Date None, Provider, PCP - General UNKNOWN PHYSICIAN SPECIALTY 02/25/23
--- OUTSIDE RECORDS SUMMARY | 2024-04-03 21:31 | XMS_ITS | Encounter Summary ---
Author Organization [facility] Address [address] [facility] [place] [address] Care Team Providers Care Plastic Sheeting Cutter Name Role Phone Unknown, Provider Primary Care Provider Unavaila ble Encounter Details Date Type Department Care Team (Late st Contact Info) Description 03/18/2019 Lab Requisition [facility] DermPath Lab [address] [facility] [place] [address] Tito Benito MD [address] [place] [address] Social History Tobacco Use Types [...] Comments DERMATOPATHOLOGY Routine 03/16/2019 12:0 0 AM DIRECTOR OF STRATEGIC MARKETING documented in this encounter Results * DERMATOPATHOLOGY (03/16/2019 12:00 AM DIRECTOR OF STRATEGIC MARKETING) Case Report Dermatopathology Report Case: [id number] Authorizing Provider: Tito Benito MD Collected: 03/16/2019 12:00 AM Ordering Location: [facility] DermPath Lab Received: 03/18/2019 07:36 AM Pathologist: Irena Villagran MD Specimen: Skin, left pentecostal lateral to brow 0 1:40 PM DIRECTOR OF STRATEGIC MARKETING DERMATOPATHOLOGY LABORATORY Final Diagnosis Specimen A. SKIN, left pentecostal lateral to brow: BASAL CELL CARCINOMA, NODULAR TYPE (C44.319) 0 1:40 PM DIRECTOR OF STRATEGIC MARKETING DERMATOPATHOLOGY LABORATORY Clinical History R/O BCC. 0 1:40 PM DIRECTOR OF STRATEGIC MARKETING DERMATOPATHOLOGY LABORATORY Gross Description Specimen A: Received is one formalin filled container labeled with the patient's name and designated left pentecostal lateral to brow. The specimen consists of a shave biopsy measuring 5a6q9za. Jar 0. 0 1:40 PM DIRECTOR OF STRATEGIC MARKETING DERMATOPATHOLOGY LABORATORY Microscopic Description Specimen A. SKIN, left pentecostal lateral to brow: Within the dermis there are aggregates of basaloid cells with a high nuclear to cytoplasmic ratio and peripheral palisading. 0 1:40 PM DIRECTOR OF STRATEGIC MARKETING DERMATOPATHOLOGY LABORATORY Disclaimer An external and internal positive and negative controls are appropriate for the histochemical, immunohistochemical and immunofluorescence stain(s) in this case (if any), except where stated explicitly. The performance characteristics of the stain(s) cited in this report were developed and its performance characteristic determined by the Dermatopathology Laboratory at [facility], directed by Dr. Preeti Marques. These tests need not be, and therefore are not, approved by the [place] Food and Drug Administration. The tests are used for clinical purposes. Billing Codes Specimen Charges Stain Charges 07827 1 0 1:40 PM DIRECTOR OF STRATEGIC MARKETING DERMATOPATHOLOGY LABORATORY Embedded Images 0 1:40 PM DIRECTOR OF STRATEGIC MARKETING DERMATOPATHOLOGY LABORATORY Pathology/Cytolog y TISSUE SPECIMEN FROM SKIN / Unknown 03/16/2019 03/18/2019 7:36 AM DIRECTOR OF STRATEGIC MARKETING Tito Benito MD LAB - PATHOLOGY/CYTO LOGY ORDERABLES DERMATOPATHOLOGY LABORATORY [facility] - Department of Dermatology [address] [place] [address], 5th [place] [address], [facility] [phone] documented in this encounter Visit Diagnoses Not on filedocumented in this encounter Care Teams Plastic Sheeting Cutter Relationship Specialty Start Date End Date Unknown, Provider PCP - General 07/09/17 documented as of this encounter
--- OUTSIDE RECORDS SUMMARY | 2024-04-03 21:31 | XMS_ITS | Encounter Summary ---
Author Organization [facility] Address [address] [facility] [place] [address] Care Team Providers Care Snow Blower Name Role Phone Unknown, Provider Primary Care Provider Unavaila ble Encounter Details Date Type Department Care Team (Late st Contact Info) Description 07/09/2017 Lab Requisition [facility] Care DermPath Lab [address] [facility] [place] [address] Tito Benito MD [address] [place] [address] Social History Tobacco Use Types [...] 12:00 AM CDT) Case Report Dermatopathology Report Case: [id number] Authorizing Provider: Tito Benito MD Collected: 07/08/2017 12:00 AM Pathologist: Melania Marques MD Received: 07/09/2017 12:28 PM Specimen: Skin, left scientologist 8 5:06 PM CDT DERMATOPATHOLOGY LABORATORY Final Diagnosis Specimen A. SKIN, left scientologist: SEBORRHEIC KERATOSIS, IRRITATED (L82.0) PRESENT AT MARGIN 8 5:06 PM CDT DERMATOPATHOLOGY LABORATORY Clinical History R/O BCC. Check margins. 8 5:06 PM CDT DERMATOPATHOLOGY LABORATORY Gross Description Specimen A: Received is one formalin filled container labeled with the patient's name and designated left scientologist. The specimen consists of a shave biopsy measuring 0m0d0qo, the margin is inked green. Jar 0. 8 5:06 PM CDT DERMATOPATHOLOGY LABORATORY Microscopic Description Specimen A. SKIN, left scientologist: There is acanthosis consisting of fairly uniform squamous cells with eosinophilic cytoplasm and squamous eddies. This lesion is present at the margin of the specimen. 8 5:06 PM CDT DERMATOPATHOLOGY LABORATORY Disclaimer An external and internal positive and negative controls are appropriate for the histochemical, immunohistochemical and immunofluorescence stain(s) in this case (if any), except where stated explicitly. The performance characteristics of the stain(s) cited in this report were developed and its performance characteristic determined by the Dermatopathology Laboratory at [facility]. These tests need not be, and therefore are not, approved by the [place] Food and Drug Administration. The tests are used for clinical purposes. Billing Codes Specimen Charges Stain Charges 51616 1 8 5:06 PM CDT DERMATOPATHOLOGY LABORATORY Embedded Images 8 5:06 PM CDT DERMATOPATHOLOGY LABORATORY Pathology/Cytolog y TISSUE SPECIMEN FROM SKIN / Unknown 07/08/2017 07/09/2017 12:28 PM CDT Tito Benito MD LAB - PATHOLOGY/CYTO LOGY ORDERABLES DERMATOPATHOLOGY LABORATORY [facility] - Department of Dermatology [address] [place] [address], 5th [place] [address], [facility] [phone] documented in this encounter Visit Diagnoses Not on filedocumented in this encounter Care Teams Snow Blower Relationship Specialty Start Date End Date Unknown, Provider PCP - General 07/09/17 documented as of this encounter
--- OUTSIDE RECORDS SUMMARY | 2024-04-03 21:31 | XMS_ITS | Encounter Summary ---
Author Organization [facility] Address [address] [facility] [place] [address] Care Team Providers Care Guard Driver Name Role Phone Unknown, Provider Primary Care Provider Unavaila ble Encounter Details Date Type Department Care Team (Late st Contact Info) Description 10/08/2022 Lab Requisition [facility] - DermPath Lab [address] [facility] [place] [phone] Tito Benito MD [address] [place] [address] Social History Tobacco Use Types [...] AM CDT) Case Report Dermatopathology Report Case: [id number] Authorizing Provider: Tito Benito MD Collected: 10/07/2022 12:00 AM Ordering Location: [facility] DermPath Lab Received: 10/08/2022 01:54 PM Pathologist: Debbie Donaldson MD Specimen: Skin, right distal lat thigh 3:43 PM CDT DERMATOPATHOLOGY LABORATORY Final Diagnosis [...] specimen consists of a shave biopsy measuring 46j68d4 mm. Jar 0. 3 3:43 PM CDT [...] determined by the Dermatopathology Laboratory at [facility], directed by Dr. Preeti Marques. These tests need not be, and therefore are not, approved by the [place] Food and Drug Administration. The tests are used for clinical purposes. Billing Codes Specimen Charges Stain Charges 12757 1 3 3:43 PM CDT DERMATOPATHOLOGY LABORATORY Embedded Images 3 3:43 PM CDT DERMATOPATHOLOGY LABORATORY Pathology/Cytolog y TISSUE SPECIMEN FROM SKIN / Unknown 10/07/2022 10/08/2022 1:54 PM CDT Tito Benito MD LAB - PATHOLOGY/CYTO LOGY ORDERABLES DERMATOPATHOLOGY LABORATORY [facility] - Department of Dermatology [address], [address]rd [place] [address], [facility] [phone] documented in this encounter Visit Diagnoses Not on filedocumented in this encounter Care Teams Guard Driver Relationship Specialty Start Date End Date Unknown, Provider PCP - General 07/09/17 documented as of this encounter
--- OUTSIDE RECORDS SUMMARY | 2024-04-03 21:31 | XMS_ITS | Encounter Summary ---
Author Organization [facility] Address [address] [place] [address] Care Team Providers Care Loss Prevention Guard Name Role Phone Georgiana Tripp DO Primary Care Provider +1- [phone] Encounter Details Date Type Department Care Team (Late st Contact Info) Description 03/17/2024 Telephone [facility] Cardiology [address] [place] [address] Rafael Pineda MD [address] [place] [id number] Social History Tobacco Use Types Packs/Day Years [...] on file Legal Sex Male 3:10 AM BEFORE SCHOOL Gender Identity Not on file Sexual Orientation Not on file Occupation Industry Job Start Date Job End Date Retired Not on file Not on file Not on file documented as of this encounter Miscellaneous Notes * Telephone Encounter - Elizabeth Brito RN - 03/17/2024 10:18 AM BEFORE SCHOOL Spoke with pts spouse, she states pt is currently a swing bed at [facility] for rehab. She is concerned about the dose of carvedilol that pt is getting because it is more that was he usually takes at home. She has discussed with the nurses caring for pt. Advised to further discuss with them and the doctor caring for pt at [facility]. RE SCHOOL * Telephone Encounter - Araceli Olivares - 03/17/2024 10:04 AM CST Pt spouse states the rehab facility is giving him carvedilol 6.5 mg total. She states they doubled the pts intake. Contact: RE SCHOOL documented in this encounter Plan of Treatment Not on file documented as of this encounter Visit Diagnoses Not on filedocumented in this encounter Care Teams Loss Prevention Guard Relationship Specialty Start Date End Date Georgiana Tripp DO PCP - General Family Medicine 03/20/21 documented as of this encounter
--- OUTSIDE RECORDS SUMMARY | 2024-04-03 21:31 | XMS_ITS | Referral Summary ---
Author Organization [facility] Address [address] [place] [address] Care Team Providers Care Slide Attendant Name Role Phone Unknown, Provider Primary Care Provider Unavaila ble Source Comments [facility],non-owned Affiliates and Associated Physician Practices is amultiple site organization consisting of ambulatory clinics and hospital sitesin [place], [place], [place] and [place]. This disclosure is being madepursuant to the Care Everywhere program and may not contain all information available regarding this patient. Last updated 17.[facility] Prieto [employer] Social History Tobacco Use Types Packs/Day Years Used Date Smoking Tobacco: Never Assessed Sex and Gender Information Value Date Recorded Sex Assigned at Not on file Gender Identity Not on file Sexual Orientation Not on file Plan of Treatment Not on file Care Teams Slide Attendant Relationship Specialty Start Date End Date Unknown, Provider PCP - General 07/09/17
--- OUTSIDE RECORDS SUMMARY | 2024-04-03 21:31 | XMS_ITS | Referral Summary ---
Author Organization [facility] Address [address] [place] [address] Care Team Providers Care Dough Cutting Machine Operator Name Role Phone KiananiecyGeorgiana moncada DO Primary Care Provider +1- [phone] Encounters Date Type Department Care Team Description 03/17/2024 Telephone [facility] Medical [facility] Cardiology [address] [place] [address] [place] [phone] Rafael Pineda MD 03/16/2024 Orders Only [facility] Medical [facility] Cardiology [address] [place] [address] [place] [phone] Roly Camacho MD 03/08/2024 Telephone [facility] Cardiology [address] [place] [address] [place] [phone] Rafael Pineda MD 03/07/2024 Telephone [facility] Cardiology [address] [facility] 8th [place] [address] [place] [address] La Patel NP 01/20/2024 1:00 PM SCREW MACHINE SET UP OPERATOR TOOL Office Visit [facility] Medical [facility] Cardiology [address] [place] [address] [place] [phone] Rafael Pineda MD S/P TAVR (transcatheter [...] 01/27/2021-Dr Cast. Patient prefers to follow with [facility]. Lesion of bladder 12/08/2022 Nonrheumatic aortic valve stenosis 04/25/2021 Aortic stenosis 02/01/2021 Bradycardia 01/25/2021 Overview (01/26/2021): Added automatically from request for surgery [id number] Cardiomyopathy 01/25/2021 Overview (01/29/2021): Added automatically from request for surgery [id number] Pre-operative cardiovascular examination, valvular heart disease 01/25/2021 Overview (01/29/2021): Added automatically from request for surgery [id number] Polyneuropathy, alcoholic 02/22/2020 Spasticity 02/22/2020 Cerebrovascular accident [...] Neurology. Assessment & Plan (02/22/2020 4:20 PM SCREW MACHINE SET UP OPERATOR TOOL): Mr. Eren Kulkarni is a 79 y.o. male, who presents for evaluation of possible PD. His thinks that at least since 2018 she has asked him to pick pack worker his left foot when walking. He also [...] on file Legal Sex Male 3:10 AM SCREW MACHINE SET UP OPERATOR TOOL Gender Identity Not on file Sexual Orientation Not on file Occupation Industry Job Start Date Job End Date Retired Not on file Not on file Not on file Last Filed Vital Signs Vital Sign Reading Time Taken Comments Blood Pressure 82/54 01/20/2024 12:56 PM SCREW MACHINE SET UP OPERATOR TOOL Pulse 58 01/20/2024 12:56 PM SCREW MACHINE SET UP OPERATOR TOOL Temperature 36.2 C (97.2 F) 12/17/2022 12:40 PM CDT Respiratory Rate 21 12/17/2022 2:05 PM CDT Oxygen Saturation 92% 01/20/2024 12: 56 PM SCREW MACHINE SET UP OPERATOR TOOL Inhaled Oxygen Concentration - - Weight 78.9 kg (173 lb 14.4 oz) 024 12:56 PM SCREW MACHINE SET UP OPERATOR TOOL Height 182.9 cm (6') 01/20/2024 12:56 PM SCREW MACHINE SET UP OPERATOR TOOL Body Mass Index 23.59 01/20/2024 12:56 PM SCREW MACHINE SET UP OPERATOR TOOL Plan of Treatment Not on file Medical Devices Implanted Type Area Painter And Body Work Device Identifier Shelf Expiration Date Model / Serial / Lot [employer] [id number] Teresita S 53cm Steroid Elute Bipolar Active Fixation Endocardial - [id number] - [id number] Implanted:Qty: 1 on 01/27/2021 by Sandra Graham MD at [facility] [employer] Inc 11/22/2022 [id number] / [id number] / Biotronik Inc [id number] Solia S 45cm Bipolar Active Fixation Lead Pacing Steroid Eluting - [id number] - [id number] Implanted:Qty: 1 on 01/27/2021 by Sandra Graham MD at [facility] [employer] Inc 11/22/2022 [id number] / [id number] / Biotronik Inc 408102 Glenn Camarari 08d27e0.5mm Dual Chamber Rate Adaptive Unipolar Bipolar - [id number] - [id number] Implanted:Qty: 1 on 01/27/2021 by Sandra Graham MD at [facility] [employer] Inc 05/23/2022 [id number] / [id number] / Perclose 6fr Vascular Closure - [id number] Implanted:Qty: 1 on 04/25/2021 by Rafael Pineda MD at [facility] [employer] 12/23/2022 90057-20 / / [id number] Perclose 6fr Vascular Closure - [id number] Implanted:Qty: 1 on 04/25/2021 by Rafael Pineda MD at [facility] [employer] 12/23/2022 [id number] / / [id number] Medtronic Inc Evproplus-34us Valve 34mm Aortic Evolut Pro+ - [id number] - [id number] Implanted:Qty: 1 on 04/25/2021 by Rafael Pineda MD at [facility] [employer] Inc 01/31/2022 EVPROPLUS-3 4US / [id number] / Procedures Procedure Name Priority Date/Time Associated Diagnosis Comments CARDIOLOGY DOCUMENT SCAN Routine 03/08/2024 7:27 AM SCREW MACHINE SET UP OPERATOR TOOL from Last 3 Months Results * Cardiology Document Scan (03/08/2024 7:27 AM SCREW MACHINE SET UP OPERATOR TOOL) Anatomical Region Laterality Modality Other us [facility] Shamar Camacho MD CV CARDIAC SERVICES PRO CEDURES Final Result from Last 3 Months Insurance MEDICARE SOLUTIONS MEDICARE MEDICARE SOLUTIONS Advance Directives For more information, please contact: [phone] * Full Code (Latest Code Status on File) Date Activated Date Inactivated Comments 02/01/2021 4:48 PM 02/12/2021 4:01 PM * Full Code Date Activated Date Inactivated Comments 01/25/2021 6:22 PM 02/01/2021 4:44 PM * Full Code Date Activated Date Inactivated Comments 05/12/2019 8:58 PM 05/17/2019 2:30 PM Care Teams Dough Cutting Machine Operator Relationship Specialty Start Date End Date Georgiana Tripp DO PCP - General Family Medicine 03/20/21
--- OUTSIDE RECORDS SUMMARY | 2024-04-03 21:31 | XMS_ITS | Clinical Summary ---
Author Organization [facility] Address [address] [facility] [place] [address] Care Team Providers Care Reservations And Ticketing Agent Name Role Phone Unknown, Provider Primary Care Provider Unavaila ble Source Comments [facility],non-owned Affiliates and Associated Physician Practices is amultiple site organization consisting of ambulatory clinics and hospital sitesin [place], [place] and [place]. This disclosure is being madepursuant to the Care Everywhere program and may not contain all information available regarding this patient. Last updated 17.[facility] [employer] Social History Tobacco Use Types Packs/Day Years [...] (#1) 2023 DEPRESSION SCREENING 02/24/2024 MEDICARE AWV CALENDAR YEAR 2024 HEPATITIS B VACCINE Aged [...] age to complete this topic Care Teams Reservations And Ticketing Agent Relationship Specialty Start Date End Date Unknown, Provider PCP - General 07/09/17
--- OUTSIDE RECORDS SUMMARY | 2024-04-03 21:31 | XMS_ITS | Encounter Summary ---
Author Organization [facility] Address [address] [facility] [place] [address] Care Team Providers Care Electronic Tester Name Role Phone Unknown, Provider Primary Care Provider Unavaila ble Encounter Details Date Type Department Care Team (Late st Contact Info) Description 03/20/2022 Lab Requisition [facility] DermPath Lab [address] [facility], [facility] [place] [address] Tito Benito MD [address] [address] Social History Tobacco Use Types [...] Comments DERMATOPATHOLOGY Routine 03/19/2022 12:0 0 AM FELLER SEAM OPERATOR documented in this encounter Results * DERMATOPATHOLOGY (03/19/2022 12:00 AM FELLER SEAM OPERATOR) Case Report Dermatopathology Report Case: [id number] Authorizing Provider: Tito Benito MD Collected: 03/19/2022 12:00 AM Ordering Location: [facility] DermPath Lab Received: 03/20/2022 01:28 PM Pathologist: Debbie Donaldson MD Specimen: Skin, right ant distal thigh 3 4:37 PM FELLER SEAM OPERATOR DERMATOPATHOLOGY LABORATORY Final Diagnosis Specimen A. SKIN, right ant distal thigh: SQUAMOUS CELL CARCINOMA, MODERATELY DIFFERENTIATED (C44.722) NOT PRESENT AT SAMPLED MARGIN 3 4:37 PM FELLER SEAM OPERATOR DERMATOPATHOLOGY LABORATORY Clinical History R/O SCC. Check Margins. 3 4:37 PM [facility] DERMATOPATHOLOGY LABORATORY Gross Description Specimen A: Received is one formalin filled container labeled with the patients name and designated right ant distal thigh. The specimen consists of a shave removal measuring 61i26l5 mm. Jar 0. 3 4:37 PM [facility] DERMATOPATHOLOGY LABORATORY Microscopic Description Specimen A. SKIN, right ant distal thigh: There are nests of squamous epithelial cells which arise from the epidermis and extend into the dermis. The nests have only focal central keratinization and rare horn oriana formation. This lesion is not present at the sampled margin of the specimen. 3 4:37 PM [facility] DERMATOPATHOLOGY LABORATORY Disclaimer An external and internal positive and negative controls are appropriate for the histochemical, immunohistochemical and immunofluorescence stain(s) in this case (if any), except where stated explicitly. The performance characteristics of the stain(s) cited in this report were developed and its performance characteristic determined by the Dermatopathology Laboratory at [facility], directed by Dr. Preeti Marques. These tests need not be, and therefore are not, approved by the [place] Food and Drug Administration. The tests are used for clinical purposes. Billing Codes Specimen Charges Stain Charges 03125 1 3 4:37 PM [facility] DERMATOPATHOLOGY LABORATORY Embedded Images 3 4:37 PM [facility] DERMATOPATHOLOGY LABORATORY Pathology/Cytolog y TISSUE SPECIMEN FROM SKIN / Unknown 03/19/2022 03/20/2022 1:28 PM FELLER SEAM OPERATOR Tito Benito MD LAB - PATHOLOGY/CYTO LOGY ORDERABLES DERMATOPATHOLOGY LABORATORY [facility] - Department of Dermatology [address], [address] [phone] documented in this encounter Visit Diagnoses Not on filedocumented in this encounter Care Teams Electronic Tester Relationship Specialty Start Date End Date Unknown, Provider PCP - General 07/09/17 documented as of this encounter
--- OUTSIDE RECORDS SUMMARY | 2024-04-03 21:31 | XMS_ITS | Encounter Summary ---
Author Organization [facility] Address [address] [place] [address] Care Team Providers Care Cream Separator Operator Name Role Phone Unknown, Provider Primary Care Provider Unavaila ble Encounter Details Date Type Department Care Team (Late st Contact Info) Description 09/16/2023 Lab Requisition [facility] - DermPath Lab [address] [facility] [place] [id number] Tito Benito MD [address] [address] Social History Tobacco Use Types [...] AM CDT) Case Report Dermatopathology Report Case: [id number] Authorizing Provider: Tito Benito MD Collected: 09/15/2023 03:33 AM Ordering Location: [facility] - Received: 09/16/2023 03:08 PM DermPath Lab Pathologist: Steff Donaldson MD Specimen: Skin, left distal medial calf 2:57 PM CDT DERMATOPATHOLOGY LABORATORY Final Diagnosis Specimen A. 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 The specimen consists of a shave biopsy measuring 91p43n1 mm. Jar 0. 2:57 PM CDT DERMATOPATHOLOGY LABORATORY Microscopic Description Specimen A. SKIN, left distal medial calf: The epidermis shows parakeratosis, full thickness disorderly maturation of keratinocytes, mitoses at different levels, and dyskeratotic cells. 2:57 PM CDT DERMATOPATHOLOGY LABORATORY Disclaimer An external and internal positive and negative controls are appropriate for the histochemical, immunohistochemical and immunofluorescence stain(s) in this case (if any), except where stated explicitly. The performance characteristics of the stain(s) cited in this report were developed and its performance characteristic determined by the Dermatopathology Laboratory at [facility], directed by Dr. Preeti Marques. These tests need not be, and therefore are not, approved by the [place] Food and Drug Administration. The tests are used for clinical purposes. Billing Codes Specimen Charges Stain Charges 46477 1 4 2:57 PM CDT DERMATOPATHOLOGY LABORATORY Embedded Images 2:57 PM CDT DERMATOPATHOLOGY LABORATORY Pathology/Cytolo gy TISSUE SPECIMEN FROM SKIN / Unknown 09/15/2023 3:33 AM CDT 09/16/2023 3:08 PM CDT Tito Benito MD LAB - PATHOLOGY/CYTO LOGY ORDERABLES DERMATOPATHOLOGY LABORATORY [facility] - Department of Dermatology [address], [address] [phone] documented in this encounter Visit Diagnoses Not on filedocumented in this encounter Care Teams Cream Separator Operator Relationship Specialty Start Date End Date Unknown, Provider PCP - General 07/09/17 documented as of this encounter
--- OUTSIDE RECORDS SUMMARY | 2024-04-03 21:31 | XMS_ITS | CONTINUITY OF CARE DOCUMENT ---
Author Name victoriaclara mariela Address Unknown Organization [facility] Address [address] [place] [address] Phone [phone] Care Team Providers Care Vmware Engineer Name Role Phone Gladys RUSHING, Sandra Unavailable NEVA RUSHING, ZACHARY Unavailable [phone] VERNACE DO SRIKANTH Unavailable PROBLEMS Condition Status Date Provider Notes Hypotension active Erick Stewart Prostate cancer active Sandra Graham MD S/P Dual chamb PCM - Biotron ik ( MRI Safe) active Rox Holman Heart block active Taglenna Yadav Bradycardia, severe active Nadia Yadav Afib with RVR active Taglenna Yadav Syncope active Taewaicha Yadav DVT active Taglenna Yadav Cardiac arrest active Taglenna Yadav Aortic stenosis, severe active Nadia Yadav CAD active Nadia Yadav Frequent premature ventricular beats active Elizabeth Juarez NP Frequent unifocal PVCs active Sandra love MD Pulmonary embolism active Sandra Graham MD ENCOUNTERS Date Type Provider Location Encounter Diag nosis - In-person encounter Office Visit Sandra Graham MD [facility] - In-person encounter Office Visit Sandra Graham MD [facility] Frequent unifocal PVCsPulmonary embolism - In-person encounter Office Visit Sandra Graham MD [facility] - In-person encounter Office Visit Sandra Graham MD [facility] Frequent premature ventricular beats - In-person encounter Office Visit Sandra Graham MD [facility] - In-person encounter Office Visit Sandra Graham MD [facility] Heart blockBradycardia, severeAfib with RVRSyncopeDVTCardiac arrestAortic [...] Mass Index (Ratio) 23.73 kg/m2 Alex caballero [place] blood pressure, cuff size regular Ke rri [...] Provider smoking, year quit 1982 Elizabeth Juarez MACHINE I ENGRAVER number of years as a smoker 25 a Elizabeth Juarez NP smoking history, tot al pack/day 1 ppd Elizabeth Juarez NP cigarette use yes Elizabeth fraire MACHINE I ENGRAVER smoking status Former smoker Elizabeth ibanez MACHINE I ENGRAVER Exercise counseling Yes Elizabeth Juarez NP social [...] Gayla Marmolejo elder smoking status Former smoker Galya daselder social history reviewed E&M revi ewed - no changes required Elizabeth Juarez NP smoking, year quit 1982 Gayla hernandesjuno number of years as a smoker 25 a Gayla Valdes smoking history, tot al pack/day 1 ppd Gayla Valdes cigarette use yes Galya Marmolejo elder smoking status Former smoker Gayla [...] Gayla hernandesjuno cigarette use yes Gayla Marmolejo [facility] smoking status Former smoker Gayla daseldjuno FUNCTIONAL [...] Policy type / Coverage type [employer] party ID [facility] MEDICARE ADVANTAGE (PPO) Other [id number] ADVANCE DIRECTIVES Name Date DISCUSSED - NO DECISION MADE TREATMENT PLAN Date Name Performer [id number],S, H is updated medication list for this problem includes: Carvedilol 3.125 Mg Tablet (Carvedilol) ..... Take 1 tablet by mouth twice daily Clopidogrel 75 Mg Tablet (Clopidogrel) ..... Take 1 tablet by mouth every day Lore Haji [id number],S, H is updated medication list for this problem includes: Carvedilol 3.125 Mg Tablet (Carvedilol) ..... Take 1 tablet by mouth twice daily Clopidogrel 75 Mg Tablet (Clopidogrel) ..... Take 1 tablet by mouth every day Lore Haji [id number],B, Lore Haji [id number],B,i mproved post pacemaker H is updated medication list for this problem includes: Carvedilol 3.125 Mg Tablet (Carvedilol) ..... Take 1 tablet by mouth twice daily Clopidogrel 75 Mg Tablet (Clopidogrel) ..... 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 Take 1 tablet by mouth twice daily Clopidogrel 75 Mg Tablet (Clopidogrel) ..... Take 1 tablet by mouth every day Sandra Graham MD [id number],C,d evice check 08/2021 Presenting EGM: Ap Vs. [...] day Eliquis 5mg BID Sandra Graham MD [id number],S, c ardiac cath at [facility] showing mild [...] by mouth every day Sandra Graham MD [id number],C,d evice check 08/2021 Presenting EGM: Ap Vs. [...] day Eliquis 5mg BID Elizabeth Juarez NP [id number],C, s /p TAVR 04/25/21 [facility] showed Severe calcific aortic stenosis, SIRISHA 0.8 cm2 01/2021 Elizabeth Juarez NP [id number],C, c ardiac cath at [facility] showing mild narrowing in left main with shelf-like calcification in the proximal segment; mild plaque proximal LAD and major diagonal branch; 30-40% stenosis proximal-mid LCX. Patent but tortuous bilateral iliac arteries. Ectatic distal abdominal aorta. Severe calcific aortic stenosis, SIRISHA 0.8 cm2 on CARMEN by planimetry. 01/2021 Elizabeth Juarez MACHINE I ENGRAVER [id number],C, S /p successful dual chamber PPM 01/27/21, sxs have improved markedly, he has been feeling well, incision site was redressed and is healing well. Elizabeth Juarez MACHINE I ENGRAVER [id number],C,d evice interrogation today 1 episode of AFIB 04/25/21 which was the day of His TAVR. no other episodes. normal function. His updated medication list for this problem includes: Carvedilol 3.125 Mg Tablet (Carvedilol) ..... Take 1 tablet by mouth twice daily Clopidogrel 75 Mg Tablet (Clopidogrel) ..... Take 1 tablet by mouth every day eliquis 5mg BID Elizabeth Juarez MACHINE I ENGRAVER [id number],C, c ardiac cath at [facility] showing mild narrowing in left main with shelf-like calcification in the proximal segment; mild plaque proximal LAD and major diagonal branch; 30-40% stenosis proximal-mid LCX. Patent but tortuous bilateral iliac arteries. Ectatic distal abdominal aorta. Severe calcific aortic stenosis, SIRISHA 0.8 cm2 on today's CARMEN by planimetry. 01/2021 Elizabeth Juarez MACHINE I ENGRAVER [id number],C,s /p TAVR 04/25/21 CAR[facility] showed Severe calcific aortic stenosis, SIRISHA 0.8 cm2 01/2021 Elizabeth Juarez MACHINE I ENGRAVER [id number],C,c ardiac cath at [facility] showing mild narrowing in left main with shelf-like calcification in the proximal segment; mild plaque proximal LAD and major diagonal branch; 30-40% stenosis proximal-mid LCX. Patent but tortuous bilateral iliac arteries. Ectatic distal abdominal aorta. Severe calcific aortic stenosis, SIRISHA 0.8 cm2 on today's CARMEN by planimetry. 01/2021 Miguel Angel Haji [id number],C,S /p successful dual chamber PPM 01/27/21, sxs have improved markedly, he has been feeling well, incision site was redressed and is healing well. Miguel Angel Haji [id number],C,S /p successful dual chamber PPM 01/27/21, sxs have improved markedly, he has been feeling well, incision site was redressed and is healing well. Miguel Angel Haji [id number],S, Miguel Angel [place] i [id number],C,U ndergoing TAVR work up at [facility], CARMEN showed Severe calcific aortic stenosis, SIRISHA [...] by mouth every day Orders: [facility][id number]) Sandra Graham MD Electrophysiology:on eliquis for pulmonary [...] every day Orders: 9 9215 HIGH 40-54min ([id number]) Sandra Graham MD Electrophysiology Sandra willis MD [...] Graham MD Electrophysiology: c ardiac cath at [facility] showing mild narrowing in left main with [...] today's CARMEN by planimetry. 01/2021 Elizabeth Juarez MACHINE I ENGRAVER Electrophysiology:s/ p TAVR 04/25/21 CAR[facility] showed Severe calcific aortic stenosis, SIRISHA 0.8 cm2 01/2021 Elizabeth Juarez MACHINE I ENGRAVER Electrophysiology:ca rdiac cath at [facility] showing mild narrowing in left main with [...] Haji Electrophysiology:Un dergoing TAVR work up at [facility], [facility]MEN showed Severe calcific aortic stenosis, SIRISHA [...]
--- OUTSIDE RECORDS SUMMARY | 2024-04-03 21:31 | XMS_ITS | Encounter Summary ---
Author Organization [facility] Address [address] [facility] [place] [address] Care Team Providers Care Drug Safety Physician Name Role Phone Unknown, Provider Primary Care Provider Unavaila ble Encounter Details Date Type Department Care Team (Late st Contact Info) Description 08/05/2018 Lab Requisition [facility] Care DermPath Lab [address] [facility], [facility] [place] [address] Tito Benito MD [address] [place] [address] Social History Tobacco Use Types [...] AM CDT) Case Report Dermatopathology Report Case: [id number] Authorizing Provider: Tito Benito MD Collected: 08/04/2018 12:00 AM Pathologist: Irena Villagran MD Received: 08/05/2018 12:31 PM Specimen: Skin, left medial chest 9 1:16 PM CDT DERMATOPATHOLOGY LABORATORY Final Diagnosis Specimen A. SKIN, left medial chest: PIGMENTED SEBORRHEIC KERATOSIS (L82.1) 9 1:16 PM CDT DERMATOPATHOLOGY LABORATORY Clinical History R/O ISK vs other. 1:16 PM CDT DERMATOPATHOLOGY LABORATORY Gross Description Specimen A: Received is one formalin filled container labeled with the patient's name and designated left medial chest. The specimen consists of a shave biopsy measuring [id number]. Jar 0. 1:16 PM CDT DERMATOPATHOLOGY LABORATORY [...] characteristic determined by the Dermatopathology Laboratory at [facility], directed by Dr. Preeti Marques. These tests need not be, and therefore are not, approved by the [place] Food and Drug Administration. The tests are used for clinical purposes. Billing Codes Specimen Charges Stain Charges 27035 1 1:16 PM CDT DERMATOPATHOLOGY LABORATORY Embedded Images 1:16 PM CDT DERMATOPATHOLOGY LABORATORY Pathology/Cytolog y TISSUE SPECIMEN FROM SKIN / Unknown 08/04/2018 08/05/2018 12:31 PM CDT Tito Benito MD LAB - PATHOLOGY/CYTO LOGY ORDERABLES DERMATOPATHOLOGY LABORATORY [facility] - Department of Dermatology [address] [place] [address], [address]th [place] [address], [facility] [phone] documented in this encounter Visit Diagnoses Not on filedocumented in this encounter Care Teams Drug Safety Physician Relationship Specialty Start Date End Date Unknown, Provider PCP - General 07/09/17 documented as of this encounter
--- OUTSIDE RECORDS SUMMARY | 2024-04-03 21:31 | XMS_ITS | Encounter Summary ---
Author Organization [facility] Address [address] [place] [address] Phone Care Team Providers Care Binder Caser Name Role Phone Georgiana Tripp DO Primary Care Provider [phone] Encounter Details Date Type Department Care Team (Late st Contact Info) Description 03/07/2024 Telephone [facility] Cardiology [address] [facility] Advanced Medicine 8th [place] [address] [place] [address] La Patel, HEAVY EQUIPMENT MECHANIC [address] [place] [address] Social History Tobacco Use Types Packs/Day Years [...] on file Legal Sex Male 3:10 AM STRUCTURAL STEEL ENGINEER Gender Identity Not on file Sexual Orientation Not on file Occupation Industry Job Start Date Job End Date Retired Not on file Not on file Not on file documented as of this encounter Plan of Treatment Not on file documented as of this encounter Visit Diagnoses Not on filedocumented in this encounter Care Teams Binder Caser Relationship Specialty Start Date End Date Georgiana Tripp DO PCP - General Family Medicine 03/20/21 documented as of this encounter
--- OUTSIDE RECORDS SUMMARY | 2024-04-03 21:31 | XMS_ITS | Clinical Summary ---
Author Organization [facility] Address [address] [place] [address] Care Team Providers Care Program Facilitator Name Role Phone KiananiecyGeorgiana moncada Primary Care Provider [phone]- [phone] Allergies No known active allergies Medications folic [...] 01/27/2021-Dr Cast. Patient prefers to follow with [facility]. Lesion of bladder 12/08/2022 Nonrheumatic aortic valve stenosis 04/25/2021 Aortic stenosis 02/01/2021 Bradycardia 01/25/2021 Overview (01/26/2021): Added automatically from request for surgery [id number] Cardiomyopathy 01/25/2021 Overview (01/29/2021): Added automatically from request for surgery [id number] Pre-operative cardiovascular examination, valvular heart disease 01/25/2021 Overview (01/29/2021): Added automatically from request for surgery [id number] Polyneuropathy, alcoholic 02/22/2020 Spasticity 02/22/2020 Cerebrovascular accident [...] Neurology. Assessment & Plan (02/22/2020 4:20 PM EVP): Mr. Erne Kulkarni is a 79 y.o. male, who presents for evaluation of possible PD. His thinks that at least since 2019 she has asked him to garbage pick up man his left foot when walking. He also [...] Type Department Care Team Description 03/17/2024 Telephone [facility] Cardiology [address] [place] [address] [place] [phone] Rafael Pineda MD 03/16/2024 Orders Only [facility] Cardiology [address] [place] [address] [place] [phone] Roly Camacho MD 03/08/2024 Telephone [facility] Cardiology [address] [place] [address] [place] [phone] Rafael Pineda MD 03/07/2024 Telephone [facility] Cardiology [address] [facility] 8th [place] [address] [place] [address] La Patel NP 01/20/2024 1:00 PM EVP Office Visit [facility] Cardiology [address] [place] [address] [place] [phone] Rafael Pineda MD S/P TAVR (transcatheter aortic [...] on file Legal Sex Male 3:10 AM EVP Gender Identity Not on file Sexual Orientation Not on file Occupation Industry Job Start Date Job End Date Retired Not on file Not on file Not on file Obstetrics History Last Filed Vital Signs Vital Sign Reading Time Taken Comments Blood Pressure 82/54 01/20/2024 12:56 PM EVP Pulse 58 01/20/2024 12:56 PM EVP Temperature 36.2 C (97.2 F) 12/17/2022 12:40 PM CDT Respiratory Rate 21 12/17/2022 2:05 PM CDT Oxygen Saturation 92% 01/20/2024 12: 56 PM EVP Inhaled Oxygen Concentration - - Weight 78.9 kg (173 lb 14.4 oz) 024 12:56 PM EVP Height 182.9 cm (6') 01/20/2024 12:56 PM EVP Body Mass Index 23.59 01/20/2024 12:56 PM EVP Plan of Treatment Health Maintenance Due Date Last Done Comments Hepatitis B Screening 11/12/1958 Well Visit 65+ 2006 Depression Screening 05/11/2020 05/12/2019 Covid-19 Vaccine ( season) 2023 11/23/2020, 05/16/2020, 04/25/2020 Influenza Vaccine (#1) 2023 , 12/25/2019, 11/22/2019 Fall Risk Assessment 12/18/2023 12/17/2022 DTaP/Tdap/Td Vaccine (2 - Td or Tdap) 04/02/203109/2021 Pneumococcal vaccine 65+ Completed 08/13/2022, 09/2021 Zoster Vaccine Completed 11/12/2022, 08/13/2022 Medical Devices Implanted Type Area Electrolytic Etcher Device Identifier Shelf Expiration Date Model / Serial / Lot [employer] [id number] Solia S 53cm Steroid Elute Bipolar Active Fixation Endocardial - [id number] - [id number] Implanted:Qty: 1 on 01/27/2021 by Sandra Graham MD at [facility] [employer] 11/22/2022 [id number] / [id number] / [employer] [id number] Solia S 45cm Bipolar Active Fixation Lead Pacing Steroid Eluting - [id number] - [id number] Implanted:Qty: 1 on 01/27/2021 by Sandra Graham MD at [facility] [employer] 11/22/2022 [id number] / [id number] / [employer] [id number] Edora Promri 93b92j5.5mm Dual Chamber Rate Adaptive Unipolar Bipolar - [id number] - [id number] Implanted:Qty: 1 on 01/27/2021 by Sandra Graham MD at [facility] [employer] 05/23/2022 [id number] / [id number] / Perclose 6fr Vascular Closure - [id number] Implanted:Qty: 1 on 04/25/2021 by Rafael Pineda MD at [facility] [employer] 12/23/2022 [id number] / / [id number] Perclose 6fr Vascular Closure - [id number] Implanted:Qty: 1 on 04/25/2021 by Rafael Pineda MD at [facility] [employer] 12/23/2022 70970-50 / / [id number] [employer] Evproplus-34us Valve 34mm Aortic Evolut Pro+ - [id number] - [id number] Implanted:Qty: 1 on 04/25/2021 by Rafael Pineda MD at [facility] [employer] 01/31/2022 EVPROPLUS-3 4US / [id number] / Procedures Procedure Name Priority Date/Time Associated Diagnosis Comments CARDIOLOGY DOCUMENT SCAN Routine 03/08/2024 7:27 AM EVP from Last 3 Months Results * Cardiology Document Scan (03/08/2024 7:27 AM EVP) Anatomical Region Laterality Modality Other us Ripa Shamar Camacho MD CV CARDIAC SERVICES PRO CEDURES Final Result from Last [address] [place] [address] MEDICARE SOLUTIONS MEDICARE MEDICARE SOLUTIONS Advance Directives For more information, please contact: [phone] * Full Code (Latest Code Status on File) Date Activated Date Inactivated Comments 02/01/2021 4:48 PM 02/12/2021 4:01 PM * Full Code Date Activated Date Inactivated Comments 01/25/2021 6:22 PM 02/01/2021 4:44 PM * Full Code Date Activated Date Inactivated Comments 05/12/2019 8:58 PM 05/17/2019 2:30 PM Care Teams Program Facilitator Relationship Specialty Start Date End Date Vernace, Georgiana Steffi, DO PCP - General Family Medicine 03/20/21
--- OUTSIDE RECORDS SUMMARY | 2024-04-03 21:31 | XMS_ITS | Patient Health Summary ---
Author Organization [facility] Address [address] [place] [address] Care Team Providers Care Cloth Washer Back Tender Name Role Phone Unknown, Provider Primary Care Provider Unavaila ble Note from [facility],non-owned Affiliates and Associated Physician Practices is amultiple site organization consisting of ambulatory clinics and hospital sitesin [place], [place], [place] and [place]. This disclosure is being madepursuant to the Care Everywhere program and may not contain all information available regarding this patient. Last updated 17.[facility] Social History Tobacco Use Types Packs/Day Years [...] period is included. Case Report Dermatopathology Report Case: [id number] Authorizing Provider: Tito Benito MD Collected: 09/15/2023 03:33 AM Ordering Location: [facility] - Received: 09/16/2023 03:08 PM DermPath Lab Pathologist: Steff Donaldson MD Specimen: Skin, left distal medial calf 2:57 PM CDT DERMATOPATHOLOGY LABORATORY Final Diagnosis Specimen A. 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 The specimen consists of a shave biopsy measuring [id number] mm. Jar 0. 2:57 PM CDT DERMATOPATHOLOGY [...] determined by the Dermatopathology Laboratory at [facility], directed by Dr. Preeti Marques. These tests need not be, and therefore are not, approved by the [place] Food and Drug Administration. The tests are used for clinical purposes. Billing Codes Specimen Charges Stain Charges 11465 1 2:57 PM CDT DERMATOPATHOLOGY LABORATORY Embedded Images 2:57 PM CDT DERMATOPATHOLOGY LABORATORY Pathology/Cytolo gy TISSUE SPECIMEN FROM SKIN / Unknown 09/15/2023 3:33 AM CDT 09/16/2023 3:08 PM CDT Tito Benito MD LAB - PATHOLOGY/CYTO LOGY ORDERABLES DERMATOPATHOLOGY LABORATORY [facility] - Department of Dermatology [address] [place] [address], [facility] [phone] Care Teams Cloth Washer Back Tender Relationship Specialty Start Date End Date Unknown, Provider PCP - General 07/09/17
--- OUTSIDE RECORDS SUMMARY | 2024-04-03 21:31 | XMS_ITS | Continuity of Care Document ---
Author Name [facility] Organization [facility] Care Team Providers Care Brick Carrier Name Role Phone [facility] Unavailable Unavailable Problems Combined list of problems from [facility] facilities. It does not include entries that were removed or entered in error. Problem Status Onset Date Problem Type Date of Resolution Comments Source Cerebellar stroke syndrome Active Condition [facility] Deep venous thrombosis Active Condition Apr 02, 2021 Entered By: RAVIN CASTILLO Comment: Bilateral-F ebruary 2021 [facility] Erectile dysfunction Active Condition [facility] H/O: pacemaker in situ Active Condition [facility] Hypercholesterolemia Active Condition [facility] Prostate cancer care review done Active Condition [facility] Pulmonary embolism Active Condition [facility] Diagnosis: ICD-10-CM 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 Medication Details Route Status Patient Instructions Prescription Expires Prescription Number Last Dispense Date Ordering Provider Order Date Order Qty Source APIXABAN 5MG TAB TAKE ONE TABLET BY MOUTH TWICE A DAY ORAL ACTIVE GERALDINE CASTILLO E B 2021 [facility] Rosanne ATORVASTATI N CA 80MG TAB TAKE ONE TABLET BY MOUTH EVERY EVENING ORAL ACTIVE GERALDINE CASTILLO E B 2021 [facility] N CARVEDILOL 6.25MG TAB TAKE ONE-HALF TABLET BY MOUTH TWICE A DAY ORAL ACTIVE GERALDINE CASTILLO E B 2021 [facility] FOLIC ACID 1MG TAB TAKE ONE TABLET BY MOUTH ONCE A DAY ORAL ACTIVE NARRA,SRE E B 2021 [facility] N FUROSEMIDE 20MG TAB TAKE ONE TABLET BY MOUTH EVERY MORNING ORAL ACTIVE NARRA,SRE E B 2021 [facility] N MULTIVITAMI NS W/MINERALS CAP/TAB TAKE 1 CAP/TAB BY MOUTH ONCE A DAY ORAL ACTIVE NARRA,SRE E B 2021 [facility] N SACUBITRIL 49MG/VALSAR BACH 51MG TAB TAKE ONE-HALF TABLET BY MOUTH TWICE A DAY ORAL ACTIVE NARRA,SRE E B 2021 [facility] N SILDENAFIL CITRATE 50MG TAB TAKE ONE-HALF TABLET BY MOUTH TWO TIMES PER WEEK NEEDED FOR ERECTILE DYSFUNCT ION (TAKE 60 MINUTES PRIOR TO SEXUAL ACTIVITY ) - LIMIT 6 DOSES PER 30 DAYS ORAL 11/24/2023 [id number] 3 NORMANA,SRE E B [address] [facility] N THIAMINE 50MG TAB TAKE ONE TABLET BY MOUTH ONCE A DAY ORAL ACTIVE NORMANA,SRE E B 2021 [facility] N Immunizations Combined list of available immunizations from the Department of Defense and Veterans Affairs facilities. Immunization Series Date Given Administered By Site Reaction Lot Number CVX Code Drug Creche Attendant Status Comments Source ZOSTER RECOMBINANT 2 2022 KARLA BARLOW RIGHT DELTO ID [id number] [address] [facility] N PNEUMOCOCCAL POLYSACCHARID E PPV23 2022 KARY BUCKNER RIGHT DELTO ID [id number] [address] [facility] N ZOSTER RECOMBINANT 1 2022 KARY BUCKNER LEFT DELTO ID [id number] [address] [facility] N INFLUENZA, UNSPECIFIED FORMULATION 2021 88 complet ed [facility] N PNEUMOCOCCAL CONJUGATE PCV [address] [facility] N TDAP 2021 115 complet ed [facility] N COVID-19 (PFIZER), MRNA, LNP-S, PF, 30 MCG/0.3 ML DOSE 3 2020 208 complet ed [facility] COVID-19 (PFIZER), MRNA, LNP-S, PF, 30 MCG/0.3 ML DOSE 2 2020 208 complet ed [facility] COVID-19 (PFIZER), MRNA, LNP-S, PF, 30 MCG/0.3 ML DOSE 1 2020 208 complet ed [facility] N INFLUENZA, UNSPECIFIED FORMULATION 2019 88 complet ed [facility] Results Combined list of recent [...] July 03, 2022 02:49 PM Reporting Lab: [facility] [phone] Performing Lab: [facility] [id number] [place] [address] DIVISION LIPID PANEL (STL) TRIGLYCERID E [MASS/VOLUM E] IN SERUM OR PLASMA 96 mg/dL 0 - 150 07/03 Specimen Type: PLASMA Comment: No hemolysis noted. Ordering Provider: RAVIN ACSTILLO Report Released Date/Time: July 03, 2022 02:49 PM Reporting Lab: [facility] [phone] Performing Lab: [facility] [phone] [place] [address] DIVISION LIPID PANEL (STL) CHOLESTEROL IN LDL [MASS/VOLUM E] IN SERUM OR PLASMA BY CALCULATION 112 mg/dL 07/03 Specimen Type: PLASMA Comment: No hemolysis noted. Ordering Provider: RAVIN CASTILLO Report Released Date/Time: July 03, 2022 02:49 PM Reporting Lab: [facility] [place] [address] Performing Lab: [facility] LIPID PANEL (STL) CHOLESTEROL IN HDL [MASS/VOLUM E] IN SERUM OR PLASMA 36 mg/dL 40 07/03 L Specimen Type: PLASMA Comment: No hemolysis noted. Ordering Provider: RAVIN CASTILLO Report Released Date/Time: July 03, 2022 02:49 PM Reporting Lab: [facility] [place] [address] Performing Lab: [facility] DIVISION CBC LEUKOCYTES [#/VOLUME] IN BLOOD BY AUTOMATED COUNT 6.7 10*3/u L 3.6 - 11.2 07/03 Specimen Type: BLOOD No comment entered. Ordering Provider: RAVIN CASTILLO Report Released Date/Time: July 03, 2022 02:49 PM Reporting Lab: [facility] [place] [address] Performing Lab: [facility] DIVISION CBC ERYTHROCYTE S [#/VOLUME] IN BLOOD BY AUTOMATED COUNT 5.16 10*6/u L 4.10 - 5.70 07/03 Specimen Type: BLOOD No comment entered. Ordering Provider: RAVIN CASTILLO Report Released Date/Time: July 03, 2022 02:49 PM Reporting Lab: [facility] [place] [address] Performing Lab: [facility] [facility] CBC HEMOGLOBIN [MASS/VOLUM E] IN BLOOD 14.4 g/dL 13.1 - 16.8 07/03 Specimen Type: BLOOD No comment entered. Ordering Provider: RAVIN CASTILLO Report Released Date/Time: July 03, 2022 02:49 PM Reporting Lab: [facility] [place] [address] Performing Lab: [facility] DIVISION CBC HEMATOCRIT [VOLUME FRACTION] OF BLOOD 43.5 38.2 - 48.4 07/03 Specimen Type: BLOOD No comment entered. Ordering Provider: RAVIN CASTILLO Report Released Date/Time: July 03, 2022 02:49 PM Reporting Lab: [facility] [place] [address] Performing Lab: [facility] DIVISION CBC MCV [ENTITIC VOLUME] BY AUTOMATED COUNT 84.3 fL 80.0 - 100.0 07/03 Specimen Type: BLOOD No comment entered. Ordering Provider: RAVIN CASTILLO Report Released Date/Time: July 03, 2022 02:49 PM Reporting Lab: [facility] [place] [address] Performing Lab: [facility] DIVISION CBC MCH [ENTITIC MASS] BY AUTOMATED COUNT 27.9 pg 27.0 - 34.0 07/03 Specimen Type: BLOOD No comment entered. Ordering Provider: RAVIN CASTILLO Report Released Date/Time: July 03, 2022 02:49 PM Reporting Lab: [facility] [place] [address] Performing Lab: [facility] DIVISION CBC MCHC [MASS/VOLUM E] BY AUTOMATED COUNT 33.1 g/dL 33.0 - 36.0 07/03 Specimen Type: BLOOD No comment entered. Ordering Provider: RAVIN CASTILLO Report Released Date/Time: July 03, 2022 02:49 PM Reporting Lab: [facility] [place] [address] Performing Lab: [facility] CBC PLATELETS [#/VOLUME] IN BLOOD BY AUTOMATED COUNT 140 10*3/u L 150 - 400 07/03 L Specimen Type: BLOOD No comment entered. Ordering Provider: RAVIN CASTILLO Report Released Date/Time: July 03, 2022 02:49 PM Reporting Lab: [facility] [place] [address] Performing Lab: [facility] DIVISION CBC PLATELET MEAN VOLUME [ENTITIC VOLUME] IN BLOOD BY AUTOMATED COUNT 11.4 fL 7.5 - 11.2 07/03 H Specimen Type: BLOOD No comment entered. Ordering Provider: RAVIN CASTILLO Report Released Date/Time: July 03, 2022 02:49 PM Reporting Lab: [facility] [place] [address] Performing Lab: [facility] CBC ERYTHROCYTE DISTRIBUTIO N WIDTH [RATIO] BY AUTOMATED COUNT 12.3 11.8 - 15.1 07/03 Specimen Type: BLOOD No comment entered. Ordering Provider: RAVIN CASTILLO Report Released Date/Time: July 03, 2022 02:49 PM Reporting Lab: [facility] [place] [address] Performing Lab: [facility] DIVISION CBC LYMPHOCYTES /100 LEUKOCYTES IN BLOOD BY AUTOMATED COUNT 23 07/03 Specimen Type: BLOOD No comment entered. Ordering Provider: RAVIN CASTILLO Report Released Date/Time: July 03, 2022 02:49 PM Reporting Lab: [facility] [place] [address] Performing Lab: [facility] DIVISION CBC MONOCYTES/1 00 LEUKOCYTES IN BLOOD BY AUTOMATED COUNT 8 07/03 Specimen Type: BLOOD No comment entered. Ordering Provider: RAVIN CASTILLO Report Released Date/Time: July 03, 2022 02:49 PM Reporting Lab: [facility] [place] [address] Performing Lab: [facility] DIVISION CBC NEUTROPHILS /100 LEUKOCYTES IN BLOOD BY AUTOMATED COUNT 67 07/03 Specimen Type: BLOOD No comment entered. Ordering Provider: RAVIN CASTILLO Report Released Date/Time: July 03, 2022 02:49 PM Reporting Lab: [facility] [place] [address] Performing Lab: [facility] DIVISION CBC EOSINOPHILS /100 LEUKOCYTES IN BLOOD BY AUTOMATED COUNT 1 07/03 Specimen Type: BLOOD No comment entered. Ordering Provider: RAVIN CASTILLO Report Released Date/Time: July 03, 2022 02:49 PM Reporting Lab: [facility] [place] [address] Performing Lab: [facility] DIVISION CBC BASOPHILS/1 00 LEUKOCYTES IN BLOOD BY AUTOMATED COUNT 1 07/03 Specimen Type: BLOOD No comment entered. Ordering Provider: RAVIN CASTILLO Report Released Date/Time: July 03, 2022 02:49 PM Reporting Lab: [facility] [place] [address] Performing Lab: [facility] DIVISION CBC LYMPHOCYTES [#/VOLUME] IN BLOOD BY AUTOMATED COUNT 1.52 10*3/u L 0.77 - 4.50 07/03 Specimen Type: BLOOD No comment entered. Ordering Provider: RAVIN CASTILLO Report Released Date/Time: July 03, 2022 02:49 PM Reporting Lab: [facility] [place] [address] Performing Lab: [facility] DIVISION CBC MONOCYTES [#/VOLUME] IN BLOOD BY AUTOMATED COUNT 0.53 10*3/u L 0.19 - 1.50 07/03 Specimen Type: BLOOD No comment entered. Ordering Provider: RAVIN CASTILLO Report Released Date/Time: July 03, 2022 02:49 PM Reporting Lab: [facility] [place] [address] Performing Lab: [facility] DIVISION CBC NEUTROPHILS [#/VOLUME] IN BLOOD BY AUTOMATED COUNT 4.51 10*3/u L 2.10 - 8.00 07/03 Specimen Type: BLOOD No comment entered. Ordering Provider: RAVIN CASTILLO Report Released Date/Time: July 03, 2022 02:49 PM Reporting Lab: [facility] [place] [address] Performing Lab: [facility] DIVISION CBC EOSINOPHILS [#/VOLUME] IN BLOOD BY AUTOMATED COUNT 0.09 10*3/u L 0.00 - 0.60 07/03 Specimen Type: BLOOD No comment entered. Ordering Provider: RAVIN CASTILLO Report Released Date/Time: July 03, 2022 02:49 PM Reporting Lab: [facility] [place] [address] Performing Lab: [facility] DIVISION CBC BASOPHILS [#/VOLUME] IN BLOOD BY AUTOMATED COUNT 0.04 10*3/u L 0.00 - 0.20 07/03 Specimen Type: BLOOD No comment entered. Ordering Provider: RAVIN CASTILLO Report Released Date/Time: July 03, 2022 02:49 PM Reporting Lab: [facility] [place] [address] Performing Lab: [facility] DIVISION CBC PLATELETS RETICULATED /100 PLATELETS IN BLOOD BY AUTOMATED COUNT 5.8 1.0 - 7.0 07/03 Specimen Type: BLOOD No comment entered. Ordering Provider: RAVIN CASTILLO Report Released Date/Time: July 03, 2022 02:49 PM Reporting Lab: [facility] [place] [address] Performing Lab: [facility] DIVISION COMPREHENS ANANTH METABOLIC PANEL CREATININE [MASS/VOLUM E] IN SERUM OR PLASMA 1.08 mg/dL 0.70 - 1.30 07/03 Specimen Type: PLASMA Comment: No hemolysis noted. Ordering Provider: RAVIN CASTILLO Report Released Date/Time: July 03, 2022 02:49 PM Reporting Lab: [facility] [place] [address] Performing Lab: [facility] [address] DIVISION COMPREHENS ANANTH METABOLIC PANEL UREA NITROGEN [MASS/VOLUM E] IN SERUM OR PLASMA 22 mg/dL 9 - 25 07/03 Specimen Type: PLASMA Comment: No hemolysis noted. Ordering Provider: RAVIN CASTILLO Report Released Date/Time: July 03, 2022 02:49 PM Reporting Lab: [facility] [place] [address] Performing Lab: [facility] DIVISION COMPREHENS ANANTH METABOLIC PANEL GLUCOSE [MASS/VOLUM E] IN SERUM OR PLASMA 110 mg/dL 72 - 99 07/03 H Specimen Type: PLASMA Comment: No hemolysis noted. Ordering Provider: RAVIN CASTILLO Report Released Date/Time: July 03, 2022 02:49 PM Reporting Lab: [facility] [place] [address] Performing Lab: [facility] DIVISION COMPREHENS ANANTH METABOLIC PANEL SODIUM [MOLES/VOLU ME] IN SERUM OR PLASMA 139 meq/L 136 - 145 07/03 Specimen Type: PLASMA Comment: No hemolysis noted. Ordering Provider: RAVIN CASTILLO Report Released Date/Time: July 03, 2022 02:49 PM Reporting Lab: [facility] [place] [address] Performing Lab: [facility] DIVISION COMPREHENS ANANTH METABOLIC PANEL POTASSIUM [MOLES/VOLU ME] IN SERUM OR PLASMA 4.9 meq/L 3.5 - 5.0 07/03 Specimen Type: PLASMA Comment: No hemolysis noted. Ordering Provider: RAVIN CASTILLO Report Released Date/Time: July 03, 2022 02:49 PM Reporting Lab: [facility] [place] [address] Performing Lab: [facility] [phone] [place] [address] DIVISION COMPREHENS ANANTH METABOLIC PANEL CHLORIDE [MOLES/VOLU ME] IN SERUM OR PLASMA 104 meq/L 98 - 107 07/03 Specimen Type: PLASMA Comment: No hemolysis noted. Ordering Provider: RAVIN CASTILLO Report Released Date/Time: July 03, 2022 02:49 PM Reporting Lab: [facility] [place] [address] Performing Lab: [facility]1 [place] [id number] DIVISION COMPREHENS ANANTH METABOLIC PANEL CARBON DIOXIDE, TOTAL [MOLES/VOLU ME] IN SERUM OR PLASMA 26 meq/L 22 - 31 07/03 Specimen Type: PLASMA Comment: No hemolysis noted. Ordering Provider: RAVIN CASTILLO Report Released Date/Time: July 03, 2022 02:49 PM Reporting Lab: [facility] [place] [address] Performing Lab: [facility] DIVISION COMPREHENS ANANTH METABOLIC PANEL CALCIUM [MASS/VOLUM E] IN SERUM OR PLASMA 10.4 mg/dL 8.4 - 10.4 07/03 Specimen Type: PLASMA Comment: No hemolysis noted. Ordering Provider: RAVIN CASTILLO Report Released Date/Time: July 03, 2022 02:49 PM Reporting Lab: [facility] [place] [address] Performing Lab: [facility] DIVISION COMPREHENS ANANTH METABOLIC PANEL PROTEIN [MASS/VOLUM E] IN SERUM OR PLASMA 7.5 g/dL 6.0 - 8.6 07/03 Specimen Type: PLASMA Comment: No hemolysis noted. Ordering Provider: RAVIN CASTILLO Report Released Date/Time: July 03, 2022 02:49 PM Reporting Lab: [facility] [place] [address] Performing Lab: [facility] COMPREHENS ANANTH METABOLIC PANEL ALBUMIN [MASS/VOLUM E] IN SERUM OR PLASMA 4.3 g/dL 3.4 - 5.0 07/03 Specimen Type: PLASMA Comment: No hemolysis noted. Ordering Provider: RAVIN CASTILLO Report Released Date/Time: July 03, 2022 02:49 PM Reporting Lab: [facility] [place] [address] Performing Lab: [facility] COMPREHENS ANANTH METABOLIC PANEL BILIRUBIN.T OTAL [MASS/VOLUM E] IN SERUM OR PLASMA 0.8 mg/dL 0.2 - 1.2 07/03 Specimen Type: PLASMA Comment: No hemolysis noted. Ordering Provider: RAVIN CASTILLO Report Released Date/Time: July 03, 2022 02:49 PM Reporting Lab: [facility] [place] [address] Performing Lab: [facility] DIVISION COMPREHENS ANANTH METABOLIC PANEL ALKALINE PHOSPHATASE [ENZYMATIC ACTIVITY/VO LUME] IN SERUM OR PLASMA 84 U/L 40 - 150 07/03 Specimen Type: PLASMA Comment: No hemolysis noted. Ordering Provider: RAVIN CASTILLO Report Released Date/Time: July 03, 2022 02:49 PM Reporting Lab: [facility] [place] [address] Performing Lab: [facility] DIVISION COMPREHENS ANANTH METABOLIC PANEL ASPARTATE AMINOTRANSF ERASE [ENZYMATIC ACTIVITY/VO LUME] IN SERUM OR PLASMA 35 U/L 5 - 34 07/03 H Specimen Type: PLASMA Comment: No hemolysis noted. Ordering Provider: RAVIN CASTILLO Report Released Date/Time: July 03, 2022 02:49 PM Reporting Lab: [facility] [address] Performing Lab: [facility] [id number] DIVISION COMPREHENS ANANTH METABOLIC PANEL ALANINE AMINOTRANSF ERASE [ENZYMATIC ACTIVITY/VO LUME] IN SERUM OR PLASMA 17 U/L 8 - 40 07/03 Specimen Type: PLASMA Comment: No hemolysis noted. Ordering Provider: RAVIN CASTILLO Report Released Date/Time: July 03, 2022 02:49 PM Reporting Lab: [facility] [address] Performing Lab: [facility] [address] DIVISION COMPREHENS ANANTH METABOLIC PANEL GLOMERULAR FILTRATION RATE/1.73 SQ M.PREDICTED [VOLUME RATE/AREA] IN SERUM, PLASMA OR BLOOD BY CREATININE- BASED FORMULA (CKD-EPI 2020) 69.37 07/03 Specimen Type: PLASMA Comment: No hemolysis noted. Ordering Provider: RAVIN CASTILLO Report Released Date/Time: July 03, 2022 02:49 PM Reporting Lab: [facility] [address] Performing Lab: [facility] [phone] [place] [address] Vital Signs Combined list of inpatient and outpatient Vital Signs from Department of Defense and Veterans Affairs, ranging from 12 months to all on record, depending upon the facility. Vital Sign Value Date Comments Source SYSTOLIC BLOOD PRESSURE 117 07/07/2023 14:12:42 [facility] DIASTOLIC BLOOD PRESSURE 75 07/07/2023 14:12:42 [facility] PULSE OXIMETRY 97 07/07/2023 14:12:42 [facility] WEIGHT 175.7 07/07/2023 14:12:42 [facility] BMI 24 kg/m2 07/07/2023 14:12:42 [facility] PAIN 0 07/07/2023 14:12:42 [facility] TEMPERATURE 98.2 07/07/2023 14:12:42 [facility] PULSE 68 07/07/2023 14:12:42 [facility] RESPIRATION 20 07/07/2023 14:12:42 [facility] Encounters Combined list of: 1) Encounters from Department of Veterans Affairs facilities going backup to the last 18 months, not all [place] inpatient encounters are included; 2) Encounters from the Department of [facility] facilities going backup to 280 months. Location Location Details Encounter Type Encounter Number Reason For Visit Attending Provider ADM Date DC Date Status Disposition Source [facility] OFF/OP EST JUNE X REQ PHY/QHP [id number] Diagnos is: ICD-10- CM Z23 Encount er for immuniz atBIENVENIDO Marks M 11/12 [facility] N [facility] OFFICE O/P EST HI 40 MIN [id number] Diagnos is: ICD-10- CM D07.5 Carcino ma in situ of prostat e NARRA,RAVIN B 07/06 [facility] Outpatient Encounter [id number] 07/13 [facility] Social History Combined list of available smoking, tobacco, and other social history from Department of Defense and Veterans Affairs facilities. Social History Type Response Date Comment Sourc e Tobacco smoking status NHIS [facility] FORMER USER 07/07/2023 [facility] History of tobacco use [facility] QUIT 1 5 YRS OR MORE 07/07/2023 [facility] History of tobacco use [facility] NEVER USED 06/24/2022 [facility] of [facility] of [facility] 5 Y[facility] OR MORE 04/27/2020 [facility] Plan of Care List of future care activities from [facility] facilities. Additional future care activities may be listed in the Assessment and Plan section. Date/Time Care Activity Care Activity Detail Facili ty 04/19/2024 AMBULATORY - SURGERY AMBULATORY - SURGERY [facility] 06/09/2024 AMBULATORY - MEDICINE AMBULATORY - MEDICI [facility]
[2024-04-03 22:05] VITALS: BMI 24.0
--- NOTE | 2024-04-03 22:05 | P.HP_ITS ---
H&P: HPI History of Present Illness Date/Time: 04/03/24 22:05 Chief Complaint: Ileus vs obstruction. Narrative: This is an 83-year-old male with history of stroke, Parkinson, coronary artery disease, heart failure with mildly reduced ejection fraction, paroxysmal atrial fibrillation, hypertension, deep venous thrombosis, pulmonary embolism, prostate cancer, iron deficiency anemia, and daily alcohol use who is being directly admitted to the medical floor from a swing bed at [facility] for general surgery consultation due to unresolving large bowel ileus versus possible obstruction. The patient provides the following history. He was admitted to [place] on 03/04/2024 with a left hip fracture which was repaired 4 days later with cephalomedullary nail. The day prior to his surgery he c omplained of abdominal pain and distension and a CT scan at that time showed distended rectosigmoid, likely adynamic ileus for which surgery recommended conservative treatment. GI was also consulted due to drop in hemoglobin and ongoing abdominal pain and a repeat CT scan showed a moderate amount of stool in the proximal colon with fluid throughout the mid to distal colon consistent with nonspecific diarrhea. Plans are for outpatient follow-up and he was discharged to [place] for rehab on 03/16/2024. Unfortunately he continues to complain of intermittent abdominal distension that seems to come and go without pattern and it is severe enough ?that it looks like I am 9 months .? The abdomen is understandably uncomfortable when bloated and he has frequent nausea and has had several episodes of nonbloody and nonbilious emesis. When he is finally able to have a bowel movement and pass gas, the bloating seems to resolve. Over the course of the last week, he has had [address] scans and several KUBs which continue to show findings of mild distal sigmoid colitis and proctitis and large bowel ileus despite conservative treatment including bowel rest and NG tube decompression (the NG tube was removed a few days ago after he had multiple bowel movements). Because of this transfer was initiated for surgery consultation. Of note, he has been receiving milk of magnesia 30 mL b.i.d., metoclopramide 10 mg b.i.d., simethicone 80 mg b.i.d., dicyclomine 20 mg t.i.d., and probiotics t.i.d. daily. It appears all narcotics have been held. At the time my evaluation he is very uncomfortable due to abdominal distension. He complains of pain in the left hip but states he has been working with therapy and seems to be progressing in that regard. He is passing gas and is having sma ll amounts of loose stools. He denies nausea and has not had any vomiting today. He also denies fever, chills, sweats, chest pain, shortness of breath, cough, lower extremity edema, and calf pain. Review of Systems Review of Systems: 12 systems were reviewed and are negativ e except for as per HPI. [facility] Past Medical History Medical History (Updated 04/03/24 @ 22:13 by Daisy Borrero PA-C) Heart failure with reduced ejection fraction Chronic anticoagulation Paroxysmal atrial fibrillation Cardiac arrest (01/2021) V-tach/torsades Gastroesophageal reflux disease Deep venous thrombosis Alcoholism Parkinsons disease Skin cancer Fatty liver Skull fracture Arthritis Pneumonia Pulmonary embolism (01/2021) Seasonal allergies Surgical History Surgical History (Updated 04/03/24 @ 22:08 by Daisy Borrero PA-C) History of cataract extraction History of open reduction and internal fixation (ORIF) procedure (02/2024) repair left hip fracture with cephalomedullary nail History of local excision of skin lesion 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 Code status: Full code. Smoking packs per day: 1 Smoking cigarettes per day: 20.0 Years smoked: 20 Smoking pack-years: 20.00 Smoking status: Former smoker Second hand tobacco smoke exposure: No Additional smoking assessment comments: quit in 1971 Alcohol intake: former Drinks per week: 7 Substance use: never Substance use type: does not use Do You Feel Safe in your Home?: Yes Lack of Transportation: No Lack of Food: Never True Current Housing: I Have Housing Concerned About Future Housing: No Difficulty Paying Gas/Electric Bills: No Difficulty Paying for Meds: No Currently Unemployed: No Education: Master's Degree or Higher Difficulty w/ Childcare or Family Care: No Living arrangements: with family Additional living arrangements comments: Lives with in [place]. Occupation/Education: retired Spiritual care concerns: No Agree to blood products: Yes Meds Home Medications and Allergies Home Medications ?Medication ?Instructions ?Recorded ?Confirmed ?Type atorvastatin 80 mg tablet 80 mg PO HS #30 tabs 05/27/19 04/03/24 Rx apixaban 5 mg tablet 5 mg PO BID 05/23/21 03/16/24 History famotidine 10 mg tablet 20 mg PO DAILY 05/23/21 04/03/24 History folic acid 1 mg tablet 1 mg PO DAILY 05/23/21 04/03/24 History multivitamin-iron 9 mg-folic acid 1 tablet PO DAILY 05/23/21 04/03/24 History 400 mcg-calcium and minerals tablet (Thera-M) sacubitril 24 mg-valsartan 26 mg 1 tablet PO BID 05/23/21 03/16/24 History tablet carvedilol 3.125 mg tablet 1.56 mg PO Q12H 12/24/21 04/03/24 History loperamide 2 mg capsule (Imodium 2 mg PO Q6H PRN diarrhea 12/24/21 04/03/24 History A-D) hyoscyamine sulfate 0.125 mg 0.125 mg sublingual QID PRN 03/13/22 04/03/24 Rx sublingual tablet dyspepsia #120 tabs sacubitril 24 mg-valsartan 26 mg 1 tablet PO BID 03/04/24 04/03/24 History tablet (Entresto) furosemide 20 mg tablet 20 mg PO QAM 30 days #0 tabs 03/16/24 04/03/24 Rx oxycodone-acetaminophen 10 mg-325 1 tablet PO Q6H PRN Pain Rated 03/16/24 04/03/24 Rx mg tablet 7-10 5 days #12 tabs Saccharomyces boulardii 250 mg 250 mg PO TID #10 caps 04/03/24 04/03/24 Rx capsule (Florastor) dicyclomine 10 mg capsule 20 mg (2 x 10 mg) PO TID #10 caps 04/03/24 04/03/24 Rx magnesium hydroxide 400 mg/5 mL 30 ml PO BID #355 mL 04/03/24 04/03/24 Rx oral suspension (Milk of Magnesia) metoclopramide HCl 10 mg tablet 10 mg PO BID #10 tabs 04/03/24 04/03/24 Rx (Reglan) xssubspt-iuuexmnnmi-sjdgsnnke 1 applic topical DAILY 04/03/24 04/03/24 History topical packet potassium chloride 20 mEq oral 40 meq PO BID 04/03/24 04/03/24 History packet potassium chloride 20 mEq 40 meq (2 x 20 mEq) PO BIDWM #10 04/03/24 04/03/24 Rx tablet,extended release (K-Tab) tabs simethicone 80 mg chewable tablet 80 mg PO QID #10 tabs 04/03/24 04/03/24 Rx Allergies Allergy/AdvReac Type Severity Reaction Status Date / Time No Known Allergies Allergy Unknown Verified 10/23/22 11:41 Exam Narrative: General: Well-developed, nontoxic-appearing elderly gentleman in the semi-Lopes position in bed in no acute distress. HEENT: PERRL, EOMI. Sclera anicteric. Tacky mucous membranes. Neck: Supple. Respiratory: Lungs are clear to auscultation bilaterally. Cardiovascular: Regular rate and rhythm with S1-S2. Gastrointestinal: Abdomen is distended and tender to palpation throughout without voluntary guarding or rebound tenderness. Bowel sounds are present and he is passing gas. Skin: Warm and dry. Mild pallor. Stage II pressure wounds on the buttocks. There are pressure wounds on both heels and the dorsum of the proximal feet. Extremities: No cyanosis, clubbing, or significant edema. Radial and pedal pulses intact. Neurological: Alert. Cranial nerves 2-12 are grossly intact.No gross focal deficits to casual conversation. Psychiatric: Pleasant and cooperative with normal mood and affect. Judgment and insight intact. Assessment and Plan Assessment and plan (1) Ileus: Code(s): K56.7 - Ileus, unspecified Status: Acute (2) Hypokalemia: Code(s): E87.6 - Hypokalemia Status: Acute (3) Paroxysmal atrial fibrillation: Code(s): I48.0 - Paroxysmal atrial fibrillation Status: Acute (4) Chronic anticoagulation: Code(s): Z79.01 - remote computer terminal operator (current) use of anticoagulants Status: Acute (5) Heart failure with reduced ejection fraction: Code(s): I50.20 - Unspecified systolic (congestive) heart failure Status: Acute (6) Iron deficiency anemia: Code(s): D50.9 - Iron deficiency anemia, unspecified Status: Acute Plan The patient was transferred to [place] this evening for surgery consultation given ongoing findings of ileus versus possible obstruction on CT scan as detailed in HPI. Labs, imaging, EKG, and all reports were personally reviewed. This is been an ongoing issue since his hospitalization last month in which he was admitted for a left hip fracture and in fact there were findings of ileus prior to surgery. He continues to have intermittent abdominal distension and bloating but has been having bowel movements and is passing flatus on a regimen of scheduled milk of magnesia. Check magnesium level to ensure it is not elevated as hypermagnesemia can cause ileus. Discontinue dicyclomine which can also exacerbate ileus. Narcotics have been placed on hold. As he is not actively nauseated or vomiting, will hold on and NG tube for now. Surgery has been consulted and their input is appreciated. His potassium was 2.3 this morning and repeat electrolytes are currently pending. Monitor on telemetry for now. He appears euvolemic and volume status will be monitored closely, avoiding over- hydration. Anemia stable on review of previous labs. Albumin and total protein are low and he may benefit from supplements. Check pre-albumin. His home medications will be reviewed and resumed as appropriate. Findings and treatment plan were discussed with the patient. Questions were solicited and answered to satisfaction. The patient's medical management will be taken over by the [facility] pitalist team in a.m. Quality VTE Prophylaxis VTE prophylaxis: pharmacologic ordered (on apixaban) The patient has been admitted under observation status. Hospitalist [facility] Advance Care Plan I have confirmed that the patient's Advanced Care Plan is present, code status is documented, or surrogate decision maker is listed in patient medical record.: Yes Medication Reconciliation I have utilized all available resources to obtain, update and review the patients current medications (includes all prescriptions, OTC, herbals, cannabis, and nutritional supplements).: Yes
--- OUTSIDE RECORDS SUMMARY | 2024-04-03 22:10 | XMS_ITS | Referral Summary ---
Author Organization [facility] Address [address] [place] [address] Care Team Providers Care Salon Customer Experience Specialist Name Role Phone KiananiecyGeorgiana moncada DO Primary Care Provider [phone]- [phone] Encounters Date Type Department Care Team Description 03/17/2024 Telephone [facility] Cardiology [address] [place] [address] [place] [phone] Rafael Pineda MD 03/16/2024 Orders Only [facility] Cardiology [address] [place] [address] [place] [phone] Roly Camacho MD 03/08/2024 Telephone [facility] [address] [place] [address] [place] [phone] Rafael Pineda MD 03/07/2024 Telephone [facility] Cardiology [address] [facility] 8th [place] [address] [place] [address] La Patel NP 01/20/2024 1:00 PM [employer] Office Visit [facility] Cardiology [address] [place] [address] [place] [phone] Rafael Pineda MD S/P TAVR (transcatheter [...] 01/27/2021-Dr Cast. Patient prefers to follow with [facility]. Lesion of bladder 12/08/2022 Nonrheumatic aortic valve stenosis 04/25/2021 Aortic stenosis 02/01/2021 Bradycardia 01/25/2021 Overview (01/26/2021): Added automatically from request for surgery [id number] Cardiomyopathy 01/25/2021 Overview (01/29/2021): Added automatically from request for surgery [id number] Pre-operative cardiovascular examination, valvular heart disease 01/25/2021 Overview (01/29/2021): Added automatically from request for surgery [id number] Polyneuropathy, alcoholic 02/22/2020 Spasticity 02/22/2020 Cerebrovascular accident [...] Neurology. Assessment & Plan (02/22/2020 4:20 PM [employer]): Mr. Eren Kulkarni is a 79 y.o. male, who presents for evaluation of possible PD. His thinks that at least since 2018 she has asked him to draft roller picker his left foot when walking. He [...] on file Legal Sex Male 3:10 AM [employer] Gender Identity Not on file Sexual Orientation Not on file Occupation Industry Job Start Date Job End Date Retired Not on file Not on file Not on file Last Filed Vital Signs Vital Sign Reading Time Taken Comments Blood Pressure 82/54 01/20/2024 12:56 PM [employer] Pulse 58 01/20/2024 12:56 PM [employer] Temperature 36.2 C (97.2 F) 12/17/2022 12:40 PM CDT Respiratory Rate 21 12/17/2022 2:05 PM CDT Oxygen Saturation 92% 01/20/2024 12: 56 PM [employer] Inhaled Oxygen Concentration - - Weight 78.9 kg (173 lb 14.4 oz) 024 12:56 PM [employer] Height 182.9 cm (6') 01/20/2024 12:56 PM [employer] Body Mass Index 23.59 01/20/2024 12:56 PM [employer] Plan of Treatment Not on file Medical Devices Implanted Type Area Lab Support Service Tech Device Identifier Shelf Expiration Date Model / Serial / Lot [employer] [id number] Teresita S 53cm Steroid Elute Bipolar Active Fixation Endocardial - [id number] - [id number] Implanted:Qty: 1 on 01/27/2021 by Sandra Graham MD at [facility] [employer] 11/22/2022 [id number] / [id number] / [employer] [id number] Solia S 45cm Bipolar Active Fixation Lead Pacing Steroid Eluting - [id number] - [id number] Implanted:Qty: 1 on 01/27/2021 by Sandra Graham MD at [facility] [employer] 11/22/2022 [id number] / [id number] / [employer] [id number] Glenn Camarari 85z51l8.5mm Dual Chamber Rate Adaptive Unipolar Bipolar - [id number] - [id number] Implanted:Qty: 1 on 01/27/2021 by Sandra Graham MD at [facility] [employer] 05/23/2022 [id number] / [id number] / Perclose 6fr Vascular Closure - [id number] Implanted:Qty: 1 on 04/25/2021 by Rafael Pineda MD at [facility] [employer] 12/23/2022 98612-33 / / [id number] Perclose 6fr Vascular Closure - [id number] Implanted:Qty: 1 on 04/25/2021 by Rafael Pineda MD at [facility] [employer] 12/23/2022 [id number] / / [id number] Med[employer]onic Inc Evproplus-34us Valve 34mm Aortic Evolut Pro+ - [id number] - [id number] Implanted:Qty: 1 on 04/25/2021 by Rafael Pineda MD at [facility] [employer] 01/31/2022 EVPROPLUS-3 4US / [id number] / Procedures Procedure Name Priority Date/Time Associated Diagnosis Comments CARDIOLOGY DOCUMENT SCAN Routine 03/08/2024 7:27 AM [employer] from Last 3 Months Results * Cardiology Document Scan (03/08/2024 7:27 AM [employer]) Anatomical Region Laterality Modality Other us [facility] Shamar Camacho MD CV CARDIAC SERVICES PRO CEDURES Final Result from Last 3 Months Insurance MEDICARE SOLUTIONS MEDICARE MEDICARE SOLUTIONS Advance Directives For more information, please contact: [phone] * Full Code (Latest Code Status on File) Date Activated Date Inactivated Comments 02/01/2021 4:48 PM 02/12/2021 4:01 PM * Full Code Date Activated Date Inactivated Comments 01/25/2021 6:22 PM 02/01/2021 4:44 PM * Full Code Date Activated Date Inactivated Comments 05/12/2019 8:58 PM 05/17/2019 2:30 PM Care Teams Salon Customer Experience Specialist Relationship Specialty Start Date End Date Georgiana Tripp DO PCP - General Family Medicine 03/20/21
--- OUTSIDE RECORDS SUMMARY | 2024-04-03 22:10 | XMS_ITS | Clinical Summary ---
Author Organization [facility] Address [address] [place] [address] Care Team Providers Care Lean Manufacturing Coordinator Name Role Phone KiananiecyGeorgiana moncada Primary Care Provider +1- [phone] Allergies No known active allergies Medications folic [...] Cast. Patient prefers to follow with [facility]. Lesion of bladder 12/08/2022 Nonrheumatic aortic valve stenosis 04/25/2021 Aortic stenosis 02/01/2021 Bradycardia 01/25/2021 Overview (01/26/2021): Added automatically from request for surgery [id number] Cardiomyopathy 01/25/2021 Overview (01/29/2021): Added automatically from request for surgery [id number] Pre-operative cardiovascular examination, valvular heart disease 01/25/2021 Overview (01/29/2021): Added automatically from request for surgery [id number] Polyneuropathy, alcoholic 02/22/2020 Spasticity 02/22/2020 Cerebrovascular accident [...] Neurology. Assessment & Plan (02/22/2020 4:20 PM GRINDER SET UP OPERATOR CENTERLESS): Mr. Eren Kulkarni is a 79 y.o. [...] Type Department Care Team Description 03/17/2024 Telephone [facility] Cardiology [address] [place] [address] [place] [phone] Rafael Pineda MD 03/16/2024 Orders Only [facility] [address] [place] [address] [place] [phone] Roly Camacho MD 03/08/2024 Telephone [facility] [address] [place] [address] [place] [phone] Rafael Pineda MD 03/07/2024 Telephone [facility] Cardiology [address] [facility] 8th [place] [address] [place] [address] La Patel NP 01/20/2024 1:00 PM GRINDER SET UP OPERATOR CENTERLESS Office Visit [facility]iology [address] [place] [address] [place] [phone] Rafael Pineda MD S/P TAVR (transcatheter aortic valve replacement) (Primary Dx); PAF (paroxysmal atrial fibrillation) (CMS/HCC) ([facility]); Chronic anticoagulation; CHB (complete heart block) (CMS/HCC) ([facility]); Pacemaker; History of DVT (deep [...] on file Legal Sex Male 3:10 AM GRINDER SET UP OPERATOR CENTERLESS Gender Identity Not on file Sexual Orientation Not on file Occupation Industry Job Start Date Job End Date Retired Not on file Not on file Not on file Obstetrics History Last Filed Vital Signs Vital Sign Reading Time Taken Comments Blood Pressure 82/54 01/20/2024 12:56 PM GRINDER SET UP OPERATOR CENTERLESS Pulse 58 01/20/2024 12:56 PM GRINDER SET UP OPERATOR CENTERLESS Temperature 36.2 C (97.2 F) 12/17/2022 12:40 PM CDT Respiratory Rate 21 12/17/2022 2:05 PM CDT Oxygen Saturation 92% 01/20/2024 12: 56 PM GRINDER SET UP OPERATOR CENTERLESS Inhaled Oxygen Concentration - - Weight 78.9 kg (173 lb 14.4 oz) 024 12:56 PM GRINDER SET UP OPERATOR CENTERLESS Height 182.9 cm (6') 01/20/2024 12:56 PM GRINDER SET UP OPERATOR CENTERLESS Body Mass Index 23.59 01/20/2024 12:56 PM GRINDER SET UP OPERATOR CENTERLESS Plan of Treatment Health Maintenance Due Date [...] 11/12/2022, 08/13/2022 Medical Devices Implanted Type Area Family Program Specialist Device Identifier Shelf Expiration Date Model / Serial / Lot [employer] [id number] Solia S 53cm Steroid Elute Bipolar Active Fixation Endocardial - [id number] - [id number] Implanted:Qty: 1 on 01/27/2021 by Sandra Graham MD at [facility] [employer] 11/22/2022 [id number] / [id number] / [employer] [id number] Solia S 45cm Bipolar Active Fixation Lead Pacing Steroid Eluting - [id number] - [id number] Implanted:Qty: 1 on 01/27/2021 by Sandra Graham MD at [facility] [employer] 11/22/2022 [id number] / [id number] / [employer] [id number] Edora Promri 08l39n9.5mm Dual Chamber Rate Adaptive Unipolar Bipolar - [id number] - [id number] Implanted:Qty: 1 on 01/27/2021 by Sandra Graham MD at [facility] [employer] 05/23/2022 [id number] / [id number] / Perclose 6fr Vascular Closure - [id number] Implanted:Qty: 1 on 04/25/2021 by Rafael Pineda MD at [facility] [employer] 12/23/2022 01107-13 / / [id number] Perclose 6fr Vascular Closure - [id number] Implanted:Qty: 1 on 04/25/2021 by Rafael Pineda MD at [facility] [employer] 12/23/2022 81150-28 / / [id number] [employer] Inc Evproplus-34us Valve 34mm Aortic Evolut Pro+ - [id number] - [id number] Implanted:Qty: 1 on 04/25/2021 by Rafael Pineda MD at [facility] [employer] 01/31/2022 EVPROPLUS-3 4US / [id number] / Procedures Procedure Name Priority Date/Time Associated Diagnosis Comments CARDIOLOGY DOCUMENT SCAN Routine 03/08/2024 7:27 AM GRINDER SET UP OPERATOR CENTERLESS from Last 3 Months Results * Cardiology Document Scan (03/08/2024 7:27 AM GRINDER SET UP OPERATOR CENTERLESS) Anatomical Region Laterality Modality Other us [facility] Shamar Camacho MD CV CARDIAC SERVICES PRO CEDURES Final Result from Last [address] [place] [address] MEDICARE SOLUTIONS [facility] MEDICARE Address: [address] [address] MEDICARE MEDICARE SOLUTIONS Advance Directives For more information, please contact: [phone] * Full Code (Latest Code Status on File) Date Activated Date Inactivated Comments 02/01/2021 4:48 PM 02/12/2021 4:01 PM * Full Code Date Activated Date Inactivated Comments 01/25/2021 6:22 PM 02/01/2021 4:44 PM * Full Code Date Activated Date Inactivated Comments 05/12/2019 8:58 PM 05/17/2019 2:30 PM Care Teams Lean Manufacturing Coordinator Relationship Specialty Start Date End Date Vernace, Georgiana Steffi, DO PCP - General Family Medicine 03/20/21
--- OUTSIDE RECORDS SUMMARY | 2024-04-03 22:11 | XMS_ITS | CONTINUITY OF CARE DOCUMENT ---
Author Name victoriaclara mariela Address Unknown Organization [facility] Address [address] [place] [address] Phone [phone] Care Team Providers Care Wood And Hardware Outfitter Name Role Phone Gladys RUSHING, Sandra Unavailable NEVA RUSHING, ZACHARY Unavailable [phone] VERNACE DO SRIKANTH Unavailable [phone] PROBLEMS Condition Status Date Provider Notes Hypotension [...] In-person encounter Office Visit Sandra Graham MD [facility] - In-person encounter Office Visit Sandra Graham MD [facility] Frequent unifocal PVCsPulmonary embolism - In-person encounter Office Visit Sandra Graham MD [facility] - In-person encounter Office Visit Sandra Graham MD [facility] Frequent premature ventricular beats - In-person encounter Office Visit Sandra Graham MD [facility] - In-person encounter Office Visit Sandra Graham MD [facility] Heart blockBradycardia, severeAfib with RVRSyncopeDVTCardiac arrestAortic [...] Mass Index (Ratio) 23.73 kg/m2 Alex caballero [place] blood pressure, cuff size regular Ke rri [...] Provider smoking, year quit 1982 Elizabeth Juarez THERAPEUTIC STRATEGY LEAD number of years as a smoker 25 a Elizabeth Juarez NP smoking history, tot al pack/day 1 ppd Elizabeth Juarez NP cigarette use yes Elizabeth fraire THERAPEUTIC STRATEGY LEAD smoking status Former smoker Elizabeth ibanez THERAPEUTIC STRATEGY LEAD Exercise counseling Yes Elizabeth Juarez NP social [...] 1 ppd Gayla Valdes cigarette use yes Gayla Marmolejo elder [...] Gayla hernandesjuno cigarette use yes Gayla Marmolejo [facility] smoking status Former smoker Gayla daseldjuno FUNCTIONAL [...] Payer name Policy type / Coverage type oXchitl red constitution party ID [facility] MEDICARE ADVANTAGE (PPO) Other [id number] ADVANCE DIRECTIVES Name Date DISCUSSED - NO DECISION MADE TREATMENT PLAN Date Name Performer [id number],S, H is updated medication list for this problem includes: Carvedilol 3.125 Mg Tablet (Carvedilol) ..... Take 1 tablet by mouth twice daily Clopidogrel 75 Mg Tablet (Clopidogrel) ..... Take 1 tablet by mouth every day Lore Haji [id number],S, H is updated medication list for this problem includes: Carvedilol 3.125 Mg Tablet (Carvedilol) ..... Take 1 tablet by mouth twice daily Clopidogrel 75 Mg Tablet (Clopidogrel) ..... Take 1 tablet by mouth every day Lore Haji [id number],B, Lore Haji [id number],B,i mproved post pacemaker H is updated medication list for this problem includes: Carvedilol 3.125 Mg Tablet (Carvedilol) ..... Take 1 tablet by mouth twice daily Clopidogrel 75 Mg Tablet (Clopidogrel) ..... 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 Take 1 tablet by mouth twice daily Clopidogrel 75 Mg Tablet (Clopidogrel) ..... Take 1 tablet by mouth every day Sandra Graham MD [id number],C,d evice check 08/2021 Presenting EGM: Ap Vs. [...] day Eliquis 5mg BID Sandra Graham MD [id number],S, c ardiac cath at [facility] showing mild [...] by mouth every day Sandra Graham MD [id number],C,d evice check 08/2021 Presenting EGM: Ap Vs. 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 Patent but tortuous bilateral iliac arteries. Ectatic distal abdominal aorta. Severe calcific aortic stenosis, SIRISHA 0.8 cm2 on CARMEN by planimetry. 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 Elizabeth Juarez THERAPEUTIC STRATEGY LEAD [id number],C,d evice interrogation today 1 episode of AFIB 04/25/21 which was the day of His TAVR. no other episodes. normal function. His updated medication list for this problem includes: Carvedilol 3.125 Mg Tablet (Carvedilol) ..... Take 1 tablet by mouth twice daily Clopidogrel 75 Mg Tablet (Clopidogrel) ..... Take 1 tablet by mouth every day eliquis 5mg BID Elizabeth Juarez THERAPEUTIC STRATEGY LEAD [id number],C, c ardiac cath at [facility] showing mild narrowing in left main with shelf-like calcification in the proximal segment; mild plaque proximal LAD and major diagonal branch; 30-40% stenosis proximal-mid LCX. Patent but tortuous bilateral iliac arteries. Ectatic distal abdominal aorta. Severe calcific aortic stenosis, SIRISHA 0.8 cm2 on today's CARMEN by planimetry. 01/2021 Elizabeth Juarez THERAPEUTIC STRATEGY LEAD [id number],C,s /p TAVR 04/25/21 CAR[facility] showed Severe calcific aortic stenosis, SIRISHA 0.8 cm2 01/2021 Elizabeth Juarez THERAPEUTIC STRATEGY LEAD [id number],C,c ardiac cath at [facility] showing mild narrowing in left main with shelf-like calcification in the proximal segment; mild plaque proximal LAD and major diagonal branch; 30-40% stenosis proximal-mid LCX. Patent but tortuous bilateral iliac arteries. Ectatic distal abdominal aorta. Severe calcific aortic stenosis, SIRISHA 0.8 cm2 on today's CARMEN by planimetry. 01/2021 Miguel Angel Haji [id number],C,S /p successful dual chamber PPM 01/27/21, sxs have improved markedly, he has been feeling well, incision site was redressed and is healing well. Miguel Angel Haji [id number],C,S /p successful dual chamber PPM 01/27/21, sxs have improved markedly, he has been feeling well, incision site was redressed and is healing well. Miguel Angel Haji [id number],S, Miguel Angel [place] i [id number],C,U ndergoing TAVR work up at [facility], CARMEN showed Severe calcific aortic stenosis, [...] by mouth every day Orders: M [facility] ([id number]) Sandra Graham MD Electrophysiology:on eliquis for pulmonary [...] every day Orders: 9 9215 HIGH 40-54min ([id number]) Sandra Graham MD Electrophysiology Sandra willis MD [...] Graham MD Electrophysiology: c ardiac cath at [facility] showing mild narrowing in left main [...] today's CARMEN by planimetry. 01/2021 Elizabeth Juarez THERAPEUTIC STRATEGY LEAD Electrophysiology:s/ p TAVR 04/25/21 CARMEN showed Severe calcific aortic stenosis, SIRISHA 0.8 cm2 01/2021 Elizabeth Juarez THERAPEUTIC STRATEGY LEAD Electrophysiology:ca rdiac cath at [facility] showing mild narrowing in left main [...] Haji Electrophysiology:Un dergoing TAVR work up at [facility], CARMEN showed Severe calcific aortic stenosis, [...]
--- OUTSIDE RECORDS SUMMARY | 2024-04-03 22:11 | XMS_ITS | Encounter Summary ---
Author Organization [facility] Address [address] [place] [place] [address] Care Team Providers Care Jury Consultant Name Role Phone Unknown, Provider Primary Care Provider Unavaila ble Encounter Details Date Type Department Care Team (Late st Contact Info) Description 08/05/2018 Lab Requisition [facility] Care DermPath Lab [address] [place] [address] Tito Benito MD [address] [place] [address] Social History Tobacco Use Types [...] AM CDT) Case Report Dermatopathology Report Case: [id number] Authorizing Provider: Tito Benito MD Collected: 08/04/2018 [...] specimen consists of a shave biopsy measuring 3x2c3nm. Jar 0. 1:16 PM CDT DERMATOPATHOLOGY LABORATORY [...] characteristic determined by the Dermatopathology Laboratory at [facility], directed by Dr. Preeti Marques. These tests need not be, and therefore are not, approved by the [place] Food and Drug Administration. The tests are used for clinical purposes. Billing Codes Specimen Charges Stain Charges 09194 1 1:16 PM CDT DERMATOPATHOLOGY LABORATORY Embedded Images 1:16 PM CDT DERMATOPATHOLOGY LABORATORY Pathology/Cytolog y TISSUE SPECIMEN FROM SKIN / Unknown 08/04/2018 08/05/2018 12:31 PM CDT Tito Benito MD LAB - PATHOLOGY/CYTO LOGY ORDERABLES DERMATOPATHOLOGY LABORATORY [facility] - Department of Dermatology [address] [place] [address], [address]th [place] [address], [facility] [phone] documented in this encounter Visit Diagnoses Not on filedocumented in this encounter Care Teams Jury Consultant Relationship Specialty Start Date End Date Unknown, Provider PCP - General 07/09/17 documented as of this encounter
--- OUTSIDE RECORDS SUMMARY | 2024-04-03 22:11 | XMS_ITS | Encounter Summary ---
Author Organization [facility] Address [address] [place] [address] Care Team Providers Care Bottle House Quality Control Technician Name Role Phone Unknown, Provider Primary Care Provider Unavaila ble Encounter Details Date Type Department Care Team (Late st Contact Info) Description 03/20/2022 Lab Requisition [facility] DermPath Lab [address] [facility] [facility], [facility] [place] [address] Tito Benito MD [address] [address] Social History Tobacco Use Types [...] Comments DERMATOPATHOLOGY Routine 03/19/2022 12:0 0 AM ANALYZER SALES documented in this encounter Results * DERMATOPATHOLOGY (03/19/2022 12:00 AM ANALYZER SALES) Case Report Dermatopathology Report Case: [id number] Authorizing Provider: Tito Benito MD Collected: 03/19/2022 12:00 AM Ordering Location: [facility] DermPath Lab Received: 03/20/2022 01:28 PM Pathologist: Debbie Donaldson MD Specimen: Skin, right ant distal thigh 3 4:37 PM ANALYZER SALES DERMATOPATHOLOGY LABORATORY Final Diagnosis Specimen A. SKIN, right ant distal thigh: SQUAMOUS CELL CARCINOMA, MODERATELY DIFFERENTIATED (C44.722) NOT PRESENT AT SAMPLED MARGIN 3 4:37 PM ANALYZER SALES DERMATOPATHOLOGY LABORATORY Clinical History R/O SCC. Check Margins. 3 4:37 PM [facility] DERMATOPATHOLOGY LABORATORY Gross Description Specimen A: Received is one formalin filled container labeled with the patients name and designated right ant distal thigh. The specimen consists of a shave removal measuring [id number] mm. Jar 0. 3 4:37 PM [facility] DERMATOPATHOLOGY LABORATORY Microscopic Description Specimen A. SKIN, right ant distal thigh: There are nests of squamous epithelial cells which arise from the epidermis and extend into the dermis. The nests have only focal central keratinization and rare horn oriana formation. This lesion is not present at the sampled margin of the specimen. 3 4:37 PM [facility] DERMATOPATHOLOGY LABORATORY Disclaimer An external and internal positive and negative controls are appropriate for the histochemical, immunohistochemical and immunofluorescence stain(s) in this case (if any), except where stated explicitly. The performance characteristics of the stain(s) cited in this report were developed and its performance characteristic determined by the Dermatopathology Laboratory at [facility], directed by Dr. Preeti Marques. These tests need not be, and therefore are not, approved by the [place] Food and Drug Administration. The tests are used for clinical purposes. Billing Codes Specimen Charges Stain Charges 47447 1 3 4:37 PM [facility] DERMATOPATHOLOGY LABORATORY Embedded Images 3 4:37 PM [facility] DERMATOPATHOLOGY LABORATORY Pathology/Cytolog y TISSUE SPECIMEN FROM SKIN / Unknown 03/19/2022 03/20/2022 1:28 PM ANALYZER SALES Tito Benito MD LAB - PATHOLOGY/CYTO LOGY ORDERABLES DERMATOPATHOLOGY LABORATORY [facility] - Department of Dermatology [address], [address] [phone] documented in this encounter Visit Diagnoses Not on filedocumented in this encounter Care Teams Bottle House Quality Control Technician Relationship Specialty Start Date End Date Unknown, Provider PCP - General 07/09/17 documented as of this encounter
--- OUTSIDE RECORDS SUMMARY | 2024-04-03 22:11 | XMS_ITS | Encounter Summary ---
Author Organization [facility] Address [address] [facility] [address] Care Team Providers Care Mathematician Name Role Phone Unknown, Provider Primary Care Provider Unavaila ble Encounter Details Date Type Department Care Team (Late st Contact Info) Description 07/09/2017 Lab Requisition [facility] Care DermPath Lab [address] [facility] [place] [place] [address] Tito Benito MD [address] [place] [address] Social History Tobacco Use Types [...] AM CDT) Case Report Dermatopathology Report Case: [id number] Authorizing Provider: Tito Benito MD Collected: 07/08/2017 12:00 AM Pathologist: Melania Marques MD Received: 07/09/2017 12:28 PM Specimen: Skin, left mormonism 8 5:06 PM CDT DERMATOPATHOLOGY LABORATORY Final Diagnosis Specimen A. SKIN, left mormonism: SEBORRHEIC KERATOSIS, IRRITATED (L82.0) PRESENT AT MARGIN 8 5:06 PM CDT DERMATOPATHOLOGY LABORATORY Clinical History R/O BCC. Check margins. 8 5:06 PM CDT DERMATOPATHOLOGY LABORATORY Gross Description Specimen A: Received is one formalin filled container labeled with the patient's name and designated left mormonism. The specimen consists of a shave biopsy measuring 6o7p0wr, the margin is inked green. Jar 0. 8 5:06 PM CDT DERMATOPATHOLOGY LABORATORY Microscopic Description Specimen A. SKIN, left mormonism: There is acanthosis consisting of fairly uniform [...] characteristic determined by the Dermatopathology Laboratory at [facility]. These tests need not be, and therefore are not, approved by the [place] Food and Drug Administration. The tests are used for clinical purposes. Billing Codes Specimen Charges Stain Charges 94720 1 8 5:06 PM CDT DERMATOPATHOLOGY LABORATORY Embedded Images 8 5:06 PM CDT DERMATOPATHOLOGY LABORATORY Pathology/Cytolog y TISSUE SPECIMEN FROM SKIN / Unknown 07/08/2017 07/09/2017 12:28 PM CDT Tito Benito MD LAB - PATHOLOGY/CYTO LOGY ORDERABLES DERMATOPATHOLOGY LABORATORY [facility] - Department of Dermatology [address] [place] [address], 5th [place] [address], [facility] [phone] documented in this encounter Visit Diagnoses Not on filedocumented in this encounter Care Teams Mathematician Relationship Specialty Start Date End Date Unknown, Provider PCP - General 07/09/17 documented as of this encounter
--- OUTSIDE RECORDS SUMMARY | 2024-04-03 22:11 | XMS_ITS | Encounter Summary ---
Author Organization [facility] Address [address] [facility] [place] [address] Care Team Providers Care Wincher Name Role Phone Unknown, Provider Primary Care Provider Unavaila ble Encounter Details Date Type Department Care Team (Late st Contact Info) Description 03/18/2019 Lab Requisition [facility] DermPath Lab [address] [facility], [facility] [place] [address] Tito Benito MD [address] [place] [address] Social History Tobacco Use Types [...] Comments DERMATOPATHOLOGY Routine 03/16/2019 12:0 0 AM CHECK EMBOSSER documented in this encounter Results * DERMATOPATHOLOGY (03/16/2019 12:00 AM CHECK EMBOSSER) Case Report Dermatopathology Report Case: [id number] Authorizing Provider: Tito Benito MD Collected: 03/16/2019 12:00 AM Ordering Location: [facility] DermPath Lab Received: 03/18/2019 07:36 AM Pathologist: Irena Villagran MD Specimen: Skin, left adventist lateral to brow 0 1:40 PM CHECK EMBOSSER DERMATOPATHOLOGY LABORATORY Final Diagnosis Specimen A. SKIN, left adventist lateral to brow: BASAL CELL CARCINOMA, NODULAR TYPE (C44.319) 0 1:40 PM CHECK EMBOSSER DERMATOPATHOLOGY LABORATORY Clinical History R/O BCC. 0 1:40 PM CHECK EMBOSSER DERMATOPATHOLOGY LABORATORY Gross Description Specimen A: Received is one formalin filled container labeled with the patient's name and designated left adventist lateral to brow. The specimen consists of a shave biopsy measuring [id number]. Jar 0. 0 1:40 PM CHECK EMBOSSER DERMATOPATHOLOGY LABORATORY Microscopic Description Specimen A. SKIN, left adventist lateral to brow: Within the dermis there are aggregates of basaloid cells with a high nuclear to cytoplasmic ratio and peripheral palisading. 0 1:40 PM CHECK EMBOSSER DERMATOPATHOLOGY LABORATORY Disclaimer An external and internal positive and negative controls are appropriate for the histochemical, immunohistochemical and immunofluorescence stain(s) in this case (if any), except where stated explicitly. The performance characteristics of the stain(s) cited in this report were developed and its performance characteristic determined by the Dermatopathology Laboratory at [facility], directed by Dr. Preeit Marques. These tests need not be, and therefore are not, approved by the [place] Food and Drug Administration. The tests are used for clinical purposes. Billing Codes Specimen Charges Stain Charges 22657 1 0 1:40 PM CHECK EMBOSSER DERMATOPATHOLOGY LABORATORY Embedded Images 0 1:40 PM CHECK EMBOSSER DERMATOPATHOLOGY LABORATORY Pathology/Cytolog y TISSUE SPECIMEN FROM SKIN / Unknown 03/16/2019 03/18/2019 7:36 AM CHECK EMBOSSER Tito Beniot MD LAB - PATHOLOGY/CYTO LOGY ORDERABLES DERMATOPATHOLOGY LABORATORY [facility] - Department of Dermatology [address] [place] [address], [address] [place] [address], [facility] [phone] documented in this encounter Visit Diagnoses Not on filedocumented in this encounter Care Teams Wincher Relationship Specialty Start Date End Date Unknown, Provider PCP - General 07/09/17 documented as of this encounter
--- OUTSIDE RECORDS SUMMARY | 2024-04-03 22:11 | XMS_ITS | Clinical Summary ---
Author Organization [facility] Address [address] [facility] [place] [address] Care Team Providers Care Flight Information Expediter Name Role Phone Unknown, Provider Primary Care Provider Unavaila ble Source Comments [facility],non-owned Affiliates and Associated Physician Practices is amultiple site organization consisting of ambulatory clinics and hospital sitesin [place], [place]. This disclosure is being madepursuant to the Care Everywhere program and may not contain all information available regarding this patient. Last updated 17.[facility] [employer] Social History Tobacco Use Types Packs/Day Years [...] age to complete this topic Care Teams Flight Information Expediter Relationship Specialty Start Date End Date Unknown, Provider PCP - General 07/09/17
--- OUTSIDE RECORDS SUMMARY | 2024-04-03 22:11 | XMS_ITS | Encounter Summary ---
Author Organization [facility] Address [address] [place] [address] Care Team Providers Care Boardmarker Name Role Phone Unknown, Provider Primary Care Provider Unavaila ble Encounter Details Date Type Department Care Team (Late st Contact Info) Description 09/16/2023 Lab Requisition [facility] - DermPath Lab [address] [place] [address] Tito Benito MD [address] [place] [address] Social History Tobacco Use Types [...] AM CDT) Case Report Dermatopathology Report Case: [id number] Authorizing Provider: Tito Benito MD Collected: 09/15/2023 03:33 AM Ordering Location: [facility] Physician [facility] - Received: 09/16/2023 03:08 PM DermPath Lab [...] specimen consists of a shave biopsy measuring [id number] mm. Jar 0. 2:57 PM CDT DERMATOPATHOLOGY [...] characteristic determined by the Dermatopathology Laboratory at [facility], directed by Dr. Preeti Marques. These tests need not be, and therefore are not, approved by the [place] Food and Drug Administration. The tests are used for clinical purposes. Billing Codes Specimen Charges Stain Charges 75804 1 4 2:57 PM CDT DERMATOPATHOLOGY LABORATORY Embedded Images 2:57 PM CDT DERMATOPATHOLOGY LABORATORY Pathology/Cytolo gy TISSUE SPECIMEN FROM SKIN / Unknown 09/15/2023 3:33 AM CDT 09/16/2023 3:08 PM CDT Tito Benito MD LAB - PATHOLOGY/CYTO LOGY ORDERABLES DERMATOPATHOLOGY LABORATORY [facility] - Department of Dermatology [address], [address] [phone] documented in this encounter Visit Diagnoses Not on filedocumented in this encounter Care Teams Boardmarker Relationship Specialty Start Date End Date Unknown, Provider PCP - General 07/09/17 documented as of this encounter
--- OUTSIDE RECORDS SUMMARY | 2024-04-03 22:11 | XMS_ITS | Encounter Summary ---
Author Organization [facility] Address [address] [place] [address] Care Team Providers Care Fly Maker Name Role Phone Georgiana Tripp DO Primary Care Provider [phone] Encounter Details Date Type Department Care Team (Late st Contact Info) Description 03/17/2024 Telephone [facility] Cardiology [address] [place] [address] Rafael Pineda MD [address] [place] [id number] Social History Tobacco Use Types Packs/Day Years [...] on file Legal Sex Male 3:10 AM SOFTWARE QUALITY ASSURANCE SPECIALIST Gender Identity Not on file Sexual Orientation Not on file Occupation Industry Job Start Date Job End Date Retired Not on file Not on file Not on file documented as of this encounter Miscellaneous Notes * Telephone Encounter - Elizabeth Brito RN - 03/17/2024 10:18 AM SOFTWARE QUALITY ASSURANCE SPECIALIST Spoke with pts spouse, she states pt is currently a swing bed at [facility] for rehab. She is concerned about the dose of carvedilol that pt is getting because it is more that was he usually takes at home. She has discussed with the nurses caring for pt. Advised to further discuss with them and the doctor caring for pt at [facility]. WARE QUALITY ASSURANCE SPECIALIST * Telephone Encounter - Araceli Olivares - 03/17/2024 10:04 AM CST Pt spouse states the rehab facility is giving him carvedilol 6.5 mg total. She states they doubled the pts intake. Contact: WARE QUALITY ASSURANCE SPECIALIST documented in this encounter Plan of Treatment Not on file documented as of this encounter Visit Diagnoses Not on filedocumented in this encounter Care Teams Fly Maker Relationship Specialty Start Date End Date Georgiana Tripp DO PCP - General Family Medicine 03/20/21 documented as of this encounter
--- OUTSIDE RECORDS SUMMARY | 2024-04-03 22:11 | XMS_ITS | Encounter Summary ---
Author Organization [facility] Address [address] [place] [address] Care Team Providers Care Attendant Arcade Name Role Phone Unknown, Provider Primary Care Provider Unavaila ble Encounter Details Date Type Department Care Team (Late st Contact Info) Description 10/08/2022 Lab Requisition [facility] - DermPath Lab [address] [place] [id number] Tito Benito MD [address] [place] [address] Social History Tobacco Use Types [...] AM CDT) Case Report Dermatopathology Report Case: [id number] Authorizing Provider: Tito Benito MD Collected: 10/07/2022 12:00 AM Ordering Location: [facility] DermPath Lab Received: 10/08/2022 01:54 PM Pathologist: [...] specimen consists of a shave biopsy measuring [id number] mm. Jar 0. 3 3:43 PM CDT [...] characteristic determined by the Dermatopathology Laboratory at [facility], directed by Dr. Preeti Marques. These tests need not be, and therefore are not, approved by the [place] Food and Drug Administration. The tests are used for clinical purposes. Billing Codes Specimen Charges Stain Charges 90942 1 3 3:43 PM CDT DERMATOPATHOLOGY LABORATORY Embedded Images 3 3:43 PM CDT DERMATOPATHOLOGY LABORATORY Pathology/Cytolog y TISSUE SPECIMEN FROM SKIN / Unknown 10/07/2022 10/08/2022 1:54 PM CDT Tito Benito MD LAB - PATHOLOGY/CYTO LOGY ORDERABLES DERMATOPATHOLOGY LABORATORY [facility] - Department of Dermatology [address] [place] [address], [facility] [phone] documented in this encounter Visit Diagnoses Not on filedocumented in this encounter Care Teams Attendant Arcade Relationship Specialty Start Date End Date Unknown, Provider PCP - General 07/09/17 documented as of this encounter
--- OUTSIDE RECORDS SUMMARY | 2024-04-03 22:11 | XMS_ITS | Clinical Summary ---
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 Gender Identity Not on file Sexual Orientation [...] this topic Medical Devices Implanted Type Area Clinical Account Specialist Device Identifier Shelf Expiration Date Model / Serial / Lot Ra Lead-01/27/2021 Implanted:Qty: 1 on 01/27/2021 by Sandra Graham MD Lead Implant Right: Atrium [employer] S0LIA S 45 / [id number] / Rv Lead-01/27/2021 Implanted:Qty: 1 on 01/27/2021 by Sandra Graham MD Lead Implant Right: Ventricle [employer] SOLIA S 53 / [id number] / Pacemaker-01/27 Implanted:Qty: 1 on 01/27/2021 by Sandra Graham MD Pacemaker Chest [employer] EDORA 8 DR-T MODEL [id number] / [id number] / Description:MR Conditional u nder following conditions: Static magnetic field of 1.5 T or 3 T, max spatial gradient field of 3000 gauss/cm or less, Max slew rate 200 T/m/s, Max whole body DAMIAN of 2 w/kg or less, Head DAMIAN 3.2 W/kg or less, Max 30 minutes active scan time in 60 minute window Insurance [address] [place], [facility] MEDICARE Care Teams Reactor Operator Relationship Specialty Start Date End Date None, Provider, PCP - General UNKNOWN PHYSICIAN SPECIALTY 02/25/23
--- OUTSIDE RECORDS SUMMARY | 2024-04-03 22:11 | XMS_ITS | Encounter Summary ---
Author Organization [facility] Address [address] [place] [address] Phone Care Team Providers Care Condenser Operator Name Role Phone Georgiana Tripp DO Primary Care Provider [phone] Encounter Details Date Type Department Care Team (Late st Contact Info) Description 03/07/2024 Telephone [facility] Cardiology [address] [place] [address] [place] [address] La Patel, PRIVATE DETECTIVE [address] [place] [address] Social History Tobacco Use Types Packs/Day Years [...] on file 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
--- OUTSIDE RECORDS SUMMARY | 2024-04-03 22:11 | XMS_ITS | Continuity of Care Document ---
Author Name [facility] Organization [facility] Care Team Providers Care Admissions Specialist Name Role Phone [facility] Unavailable Unavailable Problems Combined list of problems from [facility] facilities. It does not include entries that were removed or entered in error. Problem Status Onset Date Problem Type Date of Resolution Comments Source Cerebellar stroke syndrome Active Condition [facility] Deep venous thrombosis Active Condition Apr 02, 2021 Entered By: RAVIN CASTILLO Comment: Bilateral-F ebruary 2021 [facility] Erectile dysfunction Active Condition [facility] H/O: pacemaker in situ Active Condition [facility] Hypercholesterolemia Active Condition [facility] Prostate cancer care review done Active Condition [facility] Pulmonary embolism Active Condition [facility] Diagnosis: ICD-10-CM 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 Medication Details Route Status Patient Instructions Prescription Expires Prescription Number Last Dispense Date Ordering Provider Order Date Order Qty Source APIXABAN 5MG TAB TAKE ONE TABLET BY MOUTH TWICE A DAY ORAL ACTIVE GERALDINE CASTILLO E B 2021 [facility] Rosanne ATORVASTATI N CA 80MG TAB TAKE ONE TABLET BY MOUTH EVERY EVENING ORAL ACTIVE GERALDINE CASTILLO E B 2021 [facility] CARVEDILOL 6.25MG TAB TAKE ONE-HALF TABLET BY MOUTH TWICE A DAY ORAL ACTIVE GERALDINE CASTILLO E B 2021 [facility] FOLIC ACID 1MG TAB TAKE ONE TABLET BY MOUTH ONCE A DAY ORAL ACTIVE NARRA,SRE E B 2021 [facility] FUROSEMIDE 20MG TAB TAKE ONE TABLET BY MOUTH EVERY MORNING ORAL ACTIVE NARRA,SRE E B 2021 [facility] MULTIVITAMI NS W/MINERALS CAP/TAB TAKE 1 CAP/TAB BY MOUTH ONCE A DAY ORAL ACTIVE NARRA,SRE E B 2021 [facility] SACUBITRIL 49MG/VALSAR BACH 51MG TAB TAKE ONE-HALF TABLET BY MOUTH TWICE A DAY ORAL ACTIVE NARRA,SRE E B 2021 [facility] N SILDENAFIL CITRATE 50MG TAB TAKE ONE-HALF TABLET BY MOUTH TWO TIMES PER WEEK NEEDED FOR ERECTILE DYSFUNCT ION (TAKE 60 MINUTES PRIOR TO SEXUAL ACTIVITY ) - LIMIT 6 DOSES PER 30 DAYS ORAL 11/24/2023 [id number] 3 NORMANA,SRE E B 2022 6 [facility] THIAMINE 50MG TAB TAKE ONE TABLET BY MOUTH ONCE A DAY ORAL ACTIVE NORMANA,SRE E B 2021 [facility] Immunizations Combined list of available immunizations from the Department of Defense and Veterans Affairs facilities. 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 Comments Source ZOSTER RECOMBINANT 2 2022 KARLA BARLOW RIGHT DELTO ID [id number] 187 complet ed [facility] PNEUMOCOCCAL POLYSACCHARID E PPV23 2022 KARY BUCKNER RIGHT DELTO ID [id number] 33 complet ed [facility] ZOSTER RECOMBINANT 1 2022 KARY BUCKNER LEFT DELTO ID [id number] 187 complet ed [facility] INFLUENZA, UNSPECIFIED FORMULATION 2021 88 complet ed [facility] PNEUMOCOCCAL CONJUGATE PCV 13 2021 133 complet ed [facility] TDAP 2021 115 complet ed [facility] COVID-19 (PFIZER), MRNA, LNP-S, PF, 30 MCG/0.3 ML DOSE 3 2020 208 complet ed [facility] COVID-19 (PFIZER), MRNA, LNP-S, PF, 30 MCG/0.3 ML DOSE 2 2020 208 complet ed [facility] N COVID-19 (PFIZER), MRNA, LNP-S, PF, 30 MCG/0.3 ML DOSE 1 2020 208 complet ed [facility] INFLUENZA, UNSPECIFIED FORMULATION 2019 88 complet ed [facility] Results Combined list of recent chemistry, hematology and other laboratory results from Department of Defense and Veterans Affairs, ranging from 15 months to all on record, depending upon the facility. Order Name Results Value Reference Range Date Interpretation Specimen Comments Source CBC LEUKOCYTES [#/VOLUME] IN BLOOD BY AUTOMATED COUNT 6.7 10*3/u L 3.6 - 11.2 07/03 Specimen Type: BLOOD No comment entered. Ordering Provider: RAVIN CASTILLO Report Released Date/Time: July 03, 2022 02:49 PM Reporting Lab: [facility] [phone] Performing Lab: [facility] [phone] [place] [address] DIVISION CBC ERYTHROCYTE S [#/VOLUME] IN BLOOD BY AUTOMATED COUNT 5.16 10*6/u L 4.10 - 5.70 07/03 Specimen Type: BLOOD No comment entered. Ordering Provider: RAVIN CASTILLO Report Released Date/Time: July 03, 2022 02:49 PM Reporting Lab: [facility] [address] Performing Lab: [facility] [phone] [place] [address] DIVISION CBC HEMOGLOBIN [MASS/VOLUM E] IN BLOOD 14.4 g/dL 13.1 - 16.8 07/03 Specimen Type: BLOOD No comment entered. Ordering Provider: RAVIN CASTILLO Report Released Date/Time: July 03, 2022 02:49 PM Reporting Lab: [facility] [place] [address] Performing Lab: [facility] CBC HEMATOCRIT [VOLUME FRACTION] OF BLOOD 43.5 38.2 - 48.4 07/03 Specimen Type: BLOOD No comment entered. Ordering Provider: RAVIN CASTILLO Report Released Date/Time: July 03, 2022 02:49 PM Reporting Lab: [facility] [place] [address] Performing Lab: [facility] CBC MCV [ENTITIC VOLUME] BY AUTOMATED COUNT 84.3 fL 80.0 - 100.0 07/03 Specimen Type: BLOOD No comment entered. Ordering Provider: RAVIN CASTILLO Report Released Date/Time: July 03, 2022 02:49 PM Reporting Lab: [facility] [place] [address] Performing Lab: [facility] DIVISION CBC MCH [ENTITIC MASS] BY AUTOMATED COUNT 27.9 pg 27.0 - 34.0 07/03 Specimen Type: BLOOD No comment entered. Ordering Provider: RAVIN CASTILLO Report Released Date/Time: July 03, 2022 02:49 PM Reporting Lab: [facility] [place] [address] Performing Lab: [facility] DIVISION CBC MCHC [MASS/VOLUM E] BY AUTOMATED COUNT 33.1 g/dL 33.0 - 36.0 07/03 Specimen Type: BLOOD No comment entered. Ordering Provider: RAVIN CASTILLO Report Released Date/Time: July 03, 2022 02:49 PM Reporting Lab: [facility] [place] [address] Performing Lab: [facility] CBC PLATELETS [#/VOLUME] IN BLOOD BY AUTOMATED COUNT 140 10*3/u L 150 - 400 07/03 L Specimen Type: BLOOD No comment entered. Ordering Provider: RAVIN CASTILLO Report Released Date/Time: July 03, 2022 02:49 PM Reporting Lab: [facility] [place] [address] Performing Lab: [facility] CBC PLATELET MEAN VOLUME [ENTITIC VOLUME] IN BLOOD BY AUTOMATED COUNT 11.4 fL 7.5 - 11.2 07/03 H Specimen Type: BLOOD No comment entered. Ordering Provider: RAVIN CASTILLO Report Released Date/Time: July 03, 2022 02:49 PM Reporting Lab: [facility] [place] [address] Performing Lab: [facility] CBC ERYTHROCYTE DISTRIBUTIO N WIDTH [RATIO] BY AUTOMATED COUNT 12.3 11.8 - 15.1 07/03 Specimen Type: BLOOD No comment entered. Ordering Provider: RAVIN CASTILLO Report Released Date/Time: July 03, 2022 02:49 PM Reporting Lab: [facility] [place] [address] Performing Lab: [facility] CBC LYMPHOCYTES /100 LEUKOCYTES IN BLOOD BY AUTOMATED COUNT 23 07/03 Specimen Type: BLOOD No comment entered. Ordering Provider: RAVIN CASTILLO Report Released Date/Time: July 03, 2022 02:49 PM Reporting Lab: [facility] [place] [address] Performing Lab: [facility] DIVISION CBC MONOCYTES/1 00 LEUKOCYTES IN BLOOD BY AUTOMATED COUNT 8 07/03 Specimen Type: BLOOD No comment entered. Ordering Provider: RAVIN CASTILLO Report Released Date/Time: July 03, 2022 02:49 PM Reporting Lab: [facility] [place] [address] Performing Lab: [facility] DIVISION CBC NEUTROPHILS /100 LEUKOCYTES IN BLOOD BY AUTOMATED COUNT 67 07/03 Specimen Type: BLOOD No comment entered. Ordering Provider: RAVIN CASTILLO Report Released Date/Time: July 03, 2022 02:49 PM Reporting Lab: [facility] [place] [address] Performing Lab: [facility] [phone] DIVISION CBC EOSINOPHILS /100 LEUKOCYTES IN BLOOD BY AUTOMATED COUNT 1 07/03 Specimen Type: BLOOD No comment entered. Ordering Provider: RAVIN CASTILLO Report Released Date/Time: July 03, 2022 02:49 PM Reporting Lab: [facility] [address] Performing Lab: [facility] DIVISION CBC BASOPHILS/1 00 LEUKOCYTES IN BLOOD BY AUTOMATED COUNT 1 07/03 Specimen Type: BLOOD No comment entered. Ordering Provider: RAVIN CASTILLO Report Released Date/Time: July 03, 2022 02:49 PM Reporting Lab: [facility] [place] [address] Performing Lab: [facility] DIVISION CBC LYMPHOCYTES [#/VOLUME] IN BLOOD BY AUTOMATED COUNT 1.52 10*3/u L 0.77 - 4.50 07/03 Specimen Type: BLOOD No comment entered. Ordering Provider: RAVIN CASTILLO Report Released Date/Time: July 03, 2022 02:49 PM Reporting Lab: [facility] [place] [address] Performing Lab: [facility] DIVISION CBC MONOCYTES [#/VOLUME] IN BLOOD BY AUTOMATED COUNT 0.53 10*3/u L 0.19 - 1.50 07/03 Specimen Type: BLOOD No comment entered. Ordering Provider: RAVIN CASTILLO Report Released Date/Time: July 03, 2022 02:49 PM Reporting Lab: [facility] [place] [address] Performing Lab: [facility] DIVISION CBC NEUTROPHILS [#/VOLUME] IN BLOOD BY AUTOMATED COUNT 4.51 10*3/u L 2.10 - 8.00 07/03 Specimen Type: BLOOD No comment entered. Ordering Provider: RAVIN CASTILLO Report Released Date/Time: July 03, 2022 02:49 PM Reporting Lab: [facility] [place] [address] Performing Lab: [facility] DIVISION CBC EOSINOPHILS [#/VOLUME] IN BLOOD BY AUTOMATED COUNT 0.09 10*3/u L 0.00 - 0.60 07/03 Specimen Type: BLOOD No comment entered. Ordering Provider: RAVIN CASTILLO Report Released Date/Time: July 03, 2022 02:49 PM Reporting Lab: [facility] [place] [address] Performing Lab: [facility] DIVISION CBC BASOPHILS [#/VOLUME] IN BLOOD BY AUTOMATED COUNT 0.04 10*3/u L 0.00 - 0.20 07/03 Specimen Type: BLOOD No comment entered. Ordering Provider: RAVIN CASTILLO Report Released Date/Time: July 03, 2022 02:49 PM Reporting Lab: [facility] [place] [address] Performing Lab: [facility] DIVISION CBC PLATELETS RETICULATED /100 PLATELETS IN BLOOD BY AUTOMATED COUNT 5.8 1.0 - 7.0 07/03 Specimen Type: BLOOD No comment entered. Ordering Provider: RAVIN CASTILLO Report Released Date/Time: July 03, 2022 02:49 PM Reporting Lab: [facility] [place] [address] Performing Lab: [facility] DIVISION COMPREHENS ANANTH METABOLIC PANEL CREATININE [MASS/VOLUM E] IN SERUM OR PLASMA 1.08 mg/dL 0.70 - 1.30 07/03 Specimen Type: PLASMA Comment: No hemolysis noted. Ordering Provider: RAVIN CASTILLO Report Released Date/Time: July 03, 2022 02:49 PM Reporting Lab: [facility] [place] [address] Performing Lab: [facility] DIVISION COMPREHENS ANANTH METABOLIC PANEL UREA NITROGEN [MASS/VOLUM E] IN SERUM OR PLASMA 22 mg/dL 9 - 25 07/03 Specimen Type: PLASMA Comment: No hemolysis noted. Ordering Provider: RAVIN CASTILLO Report Released Date/Time: July 03, 2022 02:49 PM Reporting Lab: [facility] [place] [address] Performing Lab: [facility] DIVISION COMPREHENS ANANTH METABOLIC PANEL GLUCOSE [MASS/VOLUM E] IN SERUM OR PLASMA 110 mg/dL 72 - 99 07/03 H Specimen Type: PLASMA Comment: No hemolysis noted. Ordering Provider: RAVIN CASTILLO Report Released Date/Time: July 03, 2022 02:49 PM Reporting Lab: [facility] [place] [address] Performing Lab: [facility] DIVISION COMPREHENS ANANTH METABOLIC PANEL SODIUM [MOLES/VOLU ME] IN SERUM OR PLASMA 139 meq/L 136 - 145 07/03 Specimen Type: PLASMA Comment: No hemolysis noted. Ordering Provider: RAVIN CASTILLO Report Released Date/Time: July 03, 2022 02:49 PM Reporting Lab: [facility] [place] [address] Performing Lab: [facility] DIVISION COMPREHENS ANANTH METABOLIC PANEL POTASSIUM [MOLES/VOLU ME] IN SERUM OR PLASMA 4.9 meq/L 3.5 - 5.0 07/03 Specimen Type: PLASMA Comment: No hemolysis noted. Ordering Provider: RAVIN CASTILLO Report Released Date/Time: July 03, 2022 02:49 PM Reporting Lab: [facility] [place] [address] Performing Lab: [facility] [facility] COMPREHENS ANANTH METABOLIC PANEL CHLORIDE [MOLES/VOLU ME] IN SERUM OR PLASMA 104 meq/L 98 - 107 07/03 Specimen Type: PLASMA Comment: No hemolysis noted. Ordering Provider: RAVIN CASTILLO Report Released Date/Time: July 03, 2022 02:49 PM Reporting Lab: [facility] [place] [address] Performing Lab: [facility] [place] [id number] DIVISION COMPREHENS ANANTH METABOLIC PANEL CARBON DIOXIDE, TOTAL [MOLES/VOLU ME] IN SERUM OR PLASMA 26 meq/L 22 - 31 07/03 Specimen Type: PLASMA Comment: No hemolysis noted. Ordering Provider: RAVIN CASTILLO Report Released Date/Time: July 03, 2022 02:49 PM Reporting Lab: [facility] [place] [address] Performing Lab: [facility] [id number] [place] [address] DIVISION COMPREHENS ANANTH METABOLIC PANEL CALCIUM [MASS/VOLUM E] IN SERUM OR PLASMA 10.4 mg/dL 8.4 - 10.4 07/03 Specimen Type: PLASMA Comment: No hemolysis noted. Ordering Provider: RAVIN CASTILLO Report Released Date/Time: July 03, 2022 02:49 PM Reporting Lab: [facility] [place] [address] Performing Lab: [facility] DIVISION COMPREHENS ANANTH METABOLIC PANEL PROTEIN [MASS/VOLUM E] IN SERUM OR PLASMA 7.5 g/dL 6.0 - 8.6 07/03 Specimen Type: PLASMA Comment: No hemolysis noted. Ordering Provider: RAVIN CASTILLO Report Released Date/Time: July 03, 2022 02:49 PM Reporting Lab: [facility] [place] [address] Performing Lab: [facility] DIVISION COMPREHENS ANANTH METABOLIC PANEL ALBUMIN [MASS/VOLUM E] IN SERUM OR PLASMA 4.3 g/dL 3.4 - 5.0 07/03 Specimen Type: PLASMA Comment: No hemolysis noted. Ordering Provider: RAVIN CASTILLO Report Released Date/Time: July 03, 2022 02:49 PM Reporting Lab: [facility] [place] [address] Performing Lab: [facility] COMPREHENS ANANTH METABOLIC PANEL BILIRUBIN.T OTAL [MASS/VOLUM E] IN SERUM OR PLASMA 0.8 mg/dL 0.2 - 1.2 07/03 Specimen Type: PLASMA Comment: No hemolysis noted. Ordering Provider: RAVIN CASTILLO Report Released Date/Time: July 03, 2022 02:49 PM Reporting Lab: [facility] [place] [address] Performing Lab: [facility] DIVISION COMPREHENS ANANTH METABOLIC PANEL ALKALINE PHOSPHATASE [ENZYMATIC ACTIVITY/VO LUME] IN SERUM OR PLASMA 84 U/L 40 - 150 07/03 Specimen Type: PLASMA Comment: No hemolysis noted. Ordering Provider: RAVIN CASTILLO Report Released Date/Time: July 03, 2022 02:49 PM Reporting Lab: [facility] [place] [address] Performing Lab: [facility] DIVISION COMPREHENS ANANTH METABOLIC PANEL ASPARTATE AMINOTRANSF ERASE [ENZYMATIC ACTIVITY/VO LUME] IN SERUM OR PLASMA 35 U/L 5 - 34 07/03 H Specimen Type: PLASMA Comment: No hemolysis noted. Ordering Provider: RAVIN CASTILLO Report Released Date/Time: July 03, 2022 02:49 PM Reporting Lab: [facility] [place] [address] Performing Lab: [facility] COMPREHENS ANANTH METABOLIC PANEL ALANINE AMINOTRANSF ERASE [ENZYMATIC ACTIVITY/VO LUME] IN SERUM OR PLASMA 17 U/L 8 - 40 07/03 Specimen Type: PLASMA Comment: No hemolysis noted. Ordering Provider: RAVIN CASTILLO Report Released Date/Time: July 03, 2022 02:49 PM Reporting Lab: [facility] [place] [address] Performing Lab: [facility] COMPREHENS ANANTH METABOLIC PANEL GLOMERULAR FILTRATION RATE/1.73 SQ M.PREDICTED [VOLUME RATE/AREA] IN SERUM, PLASMA OR BLOOD BY CREATININE- BASED FORMULA (CKD-EPI 2020) 69.37 07/03 Specimen Type: PLASMA Comment: No hemolysis noted. Ordering Provider: RAVIN CASTILLO Report Released Date/Time: July 03, 2022 02:49 PM Reporting Lab: [facility] [place] [address] Performing Lab: [facility] LIPID PANEL (STL) CHOLESTEROL [MASS/VOLUM E] IN SERUM OR PLASMA 167 mg/dL 0 - 200 07/03 Specimen Type: PLASMA Comment: No hemolysis noted. Ordering Provider: RAVIN CASTILLO Report Released Date/Time: July 03, 2022 02:49 PM Reporting Lab: [facility] [place] [address] Performing Lab: [facility] LIPID PANEL (STL) TRIGLYCERID E [MASS/VOLUM E] IN SERUM OR PLASMA 96 mg/dL 0 - 150 07/03 Specimen Type: PLASMA Comment: No hemolysis noted. Ordering Provider: RAVIN CASTILLO Report Released Date/Time: July 03, 2022 02:49 PM Reporting Lab: [facility] [address] Performing Lab: [facility] [phone] LIPID PANEL (STL) CHOLESTEROL IN LDL [MASS/VOLUM E] IN SERUM OR PLASMA BY CALCULATION 112 mg/dL 07/03 Specimen Type: PLASMA Comment: No hemolysis noted. Ordering Provider: RAVIN CASTILLO Report Released Date/Time: July 03, 2022 02:49 PM Reporting Lab: [facility] [address] Performing Lab: [facility] [phone] LIPID PANEL (STL) CHOLESTEROL IN HDL [MASS/VOLUM E] IN SERUM OR PLASMA 36 mg/dL 40 07/03 L Specimen Type: PLASMA Comment: No hemolysis noted. Ordering Provider: RAVIN CASTILLO Report Released Date/Time: July 03, 2022 02:49 PM Reporting Lab: [facility] [address] Performing Lab: [facility] [phone] [place] [address] Vital Signs Combined list of inpatient and outpatient Vital Signs from Department of Defense and Veterans Affairs, ranging from 12 months to all on record, depending upon the facility. Vital Sign Value Date Comments Source SYSTOLIC BLOOD PRESSURE 117 07/07/2023 14:12:42 [facility] DIASTOLIC BLOOD PRESSURE 75 07/07/2023 14:12:42 [facility] PULSE OXIMETRY 97 07/07/2023 14:12:42 [facility] WEIGHT 175.7 07/07/2023 14:12:42 [facility] BMI 24 kg/m2 07/07/2023 14:12:42 [facility] PAIN 0 07/07/2023 14:12:42 [facility] TEMPERATURE 98.2 07/07/2023 14:12:42 [facility] PULSE 68 07/07/2023 14:12:42 [facility] RESPIRATION 20 07/07/2023 14:12:42 [facility] Encounters Combined list of: 1) Encounters from Department of Veterans Affairs facilities going backup to the last 18 months, not all [place] inpatient encounters are included; 2) Encounters from the Department of [facility] facilities going backup to 280 months. Location Location Details Encounter Type Encounter Number Reason For Visit Attending Provider ADM Date DC Date Status Disposition Source [facility] OFF/OP EST JUNE X REQ PHY/QHP [id number] Diagnos is: ICD-10- CM Z23 Encount er for immuniz atBIENVENIDO Marks M 11/12 [facility] OFFICE O/P EST HI 40 MIN [id number] Diagnos is: ICD-10- CM D07.5 Carcino ma in situ of prostat e NARRA,RAVIN B 07/06 [facility] Outpatient Encounter [id number] 07/13 [facility] Social History Combined list of available smoking, tobacco, and other social history from Department of Defense and Veterans Affairs facilities. Social History Type Response Date Comment Sourc e Tobacco smoking status NHIS [facility] FORMER USER 07/07/2023 [facility] History of tobacco use [facility] QUIT 1 5 YRS OR MORE 07/07/2023 [facility] History of tobacco use [facility] NEVER USED 06/24/2022 [facility] of [facility] of [facility] 5 Y[facility] OR MORE 04/27/2020 [facility] Plan of Care List of future care activities from Department of [facility] Affairs facilities. Additional future care activities may be listed in the Assessment and Plan section. Date/Time Care Activity Care Activity Detail Facili ty 04/19/2024 AMBULATORY - SURGERY AMBULATORY - SURGERY [facility] 06/09/2024 AMBULATORY - MEDICINE AMBULATORY - MEDICI NE [facility]
--- OUTSIDE RECORDS SUMMARY | 2024-04-03 22:11 | XMS_ITS | Patient Health Summary ---
Author Organization [facility] Address [address] [place] [address] Care Team Providers Care Regulatory Process Manager Name Role Phone Unknown, Provider Primary Care Provider Unavaila ble Note from [facility],non-owned Affiliates and Associated Physician Practices is amultiple site organization consisting of ambulatory clinics and hospital sitesin [place], [place], [place] and [place]. This disclosure is being madepursuant to the Care Everywhere program and may not contain all information available regarding this patient. Last updated 17.[facility] Social History Tobacco Use Types Packs/Day Years [...] is included. Case Report Dermatopathology Report Case: [id number] Authorizing Provider: Tito Benito MD Collected: 09/15/2023 03:33 AM Ordering Location: [facility] - Received: 09/16/2023 03:08 [...] specimen consists of a shave biopsy measuring [id number] mm. Jar 0. 2:57 PM CDT DERMATOPATHOLOGY [...] characteristic determined by the Dermatopathology Laboratory at [facility], directed by Dr. Preeti Marques. These tests need not be, and therefore are not, approved by the [place] Food and Drug Administration. The tests are used for clinical purposes. Billing Codes Specimen Charges Stain Charges 69823 1 2:57 PM CDT DERMATOPATHOLOGY LABORATORY Embedded Images 2:57 PM CDT DERMATOPATHOLOGY LABORATORY Pathology/Cytolo gy TISSUE SPECIMEN FROM SKIN / Unknown 09/15/2023 3:33 AM CDT 09/16/2023 3:08 PM CDT Tito Benito MD LAB - PATHOLOGY/CYTO LOGY ORDERABLES DERMATOPATHOLOGY LABORATORY [facility] - Department of Dermatology [address] [place] [address], [facility] [phone] Care Teams Regulatory Process Manager Relationship Specialty Start Date End Date Unknown, Provider PCP - General 07/09/17
--- OUTSIDE RECORDS SUMMARY | 2024-04-03 22:11 | XMS_ITS | Encounter Summary ---
Author Organization [facility] Address [address] [place] [address] Care Team Providers Care Profiling Machine Operator Name Role Phone Unknown, Provider Primary Care Provider Unavaila ble Encounter Details Date Type Department Care Team (Late st Contact Info) Description 06/27/2021 Lab Requisition [facility] DermPath Lab [address] [place] [id number] Tito Benito MD [address] [place] [address] Social History Tobacco Use Types [...] AM CDT) Case Report Dermatopathology Report Case: [id number] Authorizing Provider: Tito Benito MD Collected: 06/26/2021 03:33 AM Ordering Location: [facility] DermPath Lab Received: 06/27/2021 01:46 PM Pathologist: [...] specimen consists of a shave biopsy measuring [id number]. Jar 0. Specimen B: Received is one formalin filled container labeled with the patient's name and designated right cheek. The specimen consists of a shave biopsy measuring [id number]. Jar 0. Specimen C: Received is one formalin filled container labeled with the patient's name and designated above right lateral brow. The specimen consists of a shave biopsy measuring [id number]. Jar 0. 2 6:53 PM CDT DERMATOPATHOLOGY [...] characteristic determined by the Dermatopathology Laboratory at [facility], directed by Dr. Preeti Marques. These tests need not be, and therefore are not, approved by the [place] Food and Drug Administration. The tests are used for clinical purposes. Billing Codes Specimen Charges Stain Charges 05090 32882 40596 1 1 1 2 6:53 PM CDT [...] LAB - PATHOLOGY/CYTO LOGY ORDERABLES DERMATOPATHOLOGY LABORATORY [facility] - Department of Dermatology [facility] Medicine [address] [place] [address], [address] [phone] documented in this encounter Visit Diagnoses Not on filedocumented in this encounter Care Teams Profiling Machine Operator Relationship Specialty Start Date End Date Unknown, Provider PCP - General 07/09/17 documented as of this encounter
--- OUTSIDE RECORDS SUMMARY | 2024-04-03 22:11 | XMS_ITS | Referral Summary ---
Author Organization [facility] Address [address] [place] [address] Care Team Providers Care Shake Splitter Name Role Phone Unknown, Provider Primary Care Provider Unavaila ble Source Comments [facility],non-owned Affiliates and Associated Physician Practices is amultiple site organization consisting of ambulatory clinics and hospital sitesin [place], [place], [place] and [place]. This disclosure is being madepursuant to the Care Everywhere program and may not contain all information available regarding this patient. Last updated 17.[facility] Social History Tobacco Use Types Packs/Day Years Used Date Smoking Tobacco: Never Assessed Sex and Gender Information Value Date Recorded Sex Assigned at Not on file Gender Identity Not on file Sexual Orientation Not on file Plan of Treatment Not on file Care Teams Shake Splitter Relationship Specialty Start Date End Date Unknown, Provider PCP - General 07/09/17
[2024-04-03 22:25] VITALS: BP 116/64; PULSE 74; RESP 18; TEMP 36.7; O2SAT 99
[2024-04-03 22:46] LABS: Basophils Percent Auto 0.4 % (0.2-1.2); Eosinophils Absolute Auto 0.1 K/mm3 (0-0.3); Eosinophils Percent Auto 1.6 % (0-4.4); Hematocrit 35.8 % (42.0-52.0); Hemoglobin 11.2 g/dL (14.0-18.0); Immature Granulocyte Absolute 0.02 K/mm3 (0.00-0.031); Immature Granulocyte Percent A 0.4 % (0-0.5); Lymphocytes Absolute Auto 1.01 K/mm3 (0.9-3.2); Lymphocytes Percent Auto 22.7 % (18.3-44.2); Mean Corpuscular HGB Conc 31.3 g/dl (32-36); Mean Corpuscular Hemoglobin 28.2 pg (26-34); Mean Corpuscular Volume 90.2 fl (80-100); Mean Platelet Volume 11.3 fl (7.4-10.4); Monocytes Absolute Auto 0.4 K/mm3 (0.1-0.6); Monocytes Percent Auto 8.1 % (2.6-8.5); Neutrophils Percent Auto 66.8 % (45.5-73.1); Platelet Count Result 143 k/mm3 (150-375); Red Blood Count 3.97 M/mm3 (4.6-6.20); Red Cell Distribution Width 16.3 % (11.5-14.5); White Blood Count 4.5 K/mm3 (4.5-10.0)
[2024-04-03 23:00] LABS: Anion Gap 11 mmol/L (4-12); Blood Urea Nitrogen 8 mg/dL (9-20); Calcium 7.4 mg/dL (8.4-10.2); Carbon Dioxide 21 mmol/L (22-30); Chloride 109 mmol/L (98-107); Estimated Glomerular Filt Rate > 60; Glucose 104 mg/dL (65-110); Magnesium 2.5 mg/dL (1.6-2.3); Potassium 2.8 mmol/L (3.4-5.0); Sodium 141 mmol/L (137-145)
[2024-04-03 23:04] LABS: Prealbumin 11.1 mg/dL (17.6-36.0)
[2024-04-03 23:40] LABS: Thyroid Stimulating Hormone Reflex 0.968 uIU/mL (0.465-4.68)
[2024-04-04] VITALS (10 sets, daily range): BP systolic 116–125; BP diastolic 64–81; PULSE 60–87; RESP 16–18; TEMP 36.2–37.1; O2SAT 99–100; BMI 24.0
[2024-04-04] MEDS: POTASSIUM PHOS,M-BASIC-D-BASIC 40 MMOL in SODIUM CHLORIDE 0.9% IV 250 ML 43.89 MMOL IVPB (00:38)
[2024-04-04] MEDS: CALCIUM GLUCONATE 1,000 MG/10 ML VIAL 1000 MG IV PUSH (00:39)
[2024-04-04] MEDS: BISACODYL 10 MG SUPPOSITORY RECTAL (00:45)
[2024-04-04 06:56] LABS: Hematocrit 33.8 % (42.0-52.0); Hemoglobin 10.4 g/dL (14.0-18.0); Mean Corpuscular HGB Conc 30.8 g/dl (32-36); Mean Corpuscular Volume 91.1 fl (80-100); Mean Platelet Volume 11.5 fl (7.4-10.4); Platelet Count Result 113 k/mm3 (150-375); Red Blood Count 3.71 M/mm3 (4.6-6.20); White Blood Count 3.6 K/mm3 (4.5-10.0)
[2024-04-04 07:15] LABS: Anion Gap 9 mmol/L (4-12); Blood Urea Nitrogen 8 mg/dL (9-20); Calcium 7.1 mg/dL (8.4-10.2); Carbon Dioxide 24 mmol/L (22-30); Chloride 109 mmol/L (98-107); Estimated CRCL calculation 101 ml/min; Estimated Glomerular Filt Rate > 60; Glucose 97 mg/dL (65-110); Magnesium 2.3 mg/dL (1.6-2.3); Potassium 2.6 mmol/L (3.4-5.0); Sodium 142 mmol/L (137-145)
[2024-04-04] MEDS: POTASSIUM CHLORIDE INJ 40 MEQ in SODIUM CHLORIDE 0.9% IV 500 ML 130 MEQ IVPB (09:33)
--- NOTE | 2024-04-04 13:13 | P.PNIM_ITS ---
Progress Note: A&P Assessment and Plan (1) Ileus: Code(s): K56.7 - Ileus, unspecified Status: Acute Assessment and Plan: * Reports large bowel movement last night after suppository * General surgery following * KUB today still shows adynamic ileus however his abdomen is less distended and he denies any nausea and vomiting * We will go ahead and increase his diet today * GI consulted for further recommendations. (2) Proctocolitis: Code(s): K52.9 - Noninfective gastroenteritis and colitis, unspecified Status: Acute Assessment and Plan: * GI consulted for recommendation (3) Hypokalemia: Code(s): E87.6 - Hypokalemia Status: Acute Assessment and Plan: * Potassium 2.6>2.9 * 40 meq given today * Will give an additional 40 meq po * continue to trend (4) Paroxysmal atrial fibrillation: Code(s): I48.0 - Paroxysmal atrial fibrillation Status: Acute Assessment and Plan: * continue Eliquis and Coreg (5) Heart failure with reduced ejection fraction: Code(s): I50.20 - Unspecified systolic (congestive) heart failure Status: Acute Assessment and Plan: * Continue Entresto, carvedilol, Lasix (6) Weakness: Code(s): R53.1 - Weakness Status: Acute Assessment and Plan: * PT and OT ordered * Case management following for additional rehab needs Time Spent With Patient Time with patient: 25 - 35 minutes Subjective Date/time seen: 04/04/24 13:13 Interval history: Interval history: This is a 83-year-old male with a significant past medical history of Parkinson's disease, GERD, pneumonia, pulmonary embolism, DVT, pacemaker who presented to [facility] from [facility] swing bed program for evaluation of abdominal distension and adynamic ileus unrelieved with basic measures. Patient was originally hospitalized at [facility] from 03/04/24-03/16/24 after sustaining a ground level fall and fracturing his left femur. He was taken to the OR on 03/08/2024 for an ORIF of his left femur intertrochanteric fracture with cephalomedullary nail With Dr. Thurman. In postop, He was noted to have a adynamic ileus and general surgery was consulted for management of the ileus. He also was being followed by Urology due to some scrotal edema that he developed postoperatively. He did have an ultrasound of the scrotum which showed possible cellulitis however it was ruled out by urology services. Patient was however treated with Zyvox and Augmentin. He finished full treatment for the cellulitis. While at [place] he was complaining of abdominal distension with gas pain and multiple bouts of diarrhea. He also had hypokalemia. The pain and distention continued and we ended up getting a CT scan on 04/02/24 CT scan of the abdomen showed distal sigmoid colitis and proctitis resulting in large bowel ileus however obstruction not excluded, cystitis, likely decreased size of the peripherally enhancing fat and fluid collection surrounding the internal fixation of the left intratrochanteric fracture, multiple pancreatic cyst 3.9 cm infrarenal abdominal aortic aneurysm. Patient placed on list for transfer at [facility] for general surgery consult. 04/04/24--Patient had large BM after given a suppository. His distension is better today. KUB showing adynamic ileus still. Subjective: Patient states that his abdomen feels much better after having a large BM last night. He is hungry and would like to eat. He denies any nausea, vomiting, abdominal pain. Labs and imaging reviewed. Review of Systems Review of Systems: 12 systems were reviewed and are negativ e except for as per HPI. Exam Narrative: General: In no acute distress, well nourished Head: atraumatic, no encephalopathy Eyes: PERRLA, sclera clear ENT: moist mucous membranes, nasal passages clear Neck: supple, no JVD, no adenopathy, trachea midline Cardiac: Normal S1 and S2. No murmur, gallops or friction rubs, peripheral pulses intact. Respiratory: Lungs clear to auscultation, no adventitious lung sounds, currently on room air Gastrointestinal: soft, non-distended, non-tender, normoactive bowel sounds. Large BM last night : voiding without difficulty. Extremities: moves all extremities well, no edema Skin: clean, dry, intact. No wounds or lesions. Neuro: Alert and oriented x4, cranial nerves intact, no neuro deficits. Psych: normal mood, normal affect, interactive Objective Data Vital Signs Vital Signs: Vital Signs - 24 hr 04/03/24 22:25 04/03/24 23:19 04/04/24 00:00 Temperature 98.1 F Pulse Rate 74 69 Respiratory Rate 18 Blood Pressure 116/64 Pulse Oximetry 99 Oxygen Delivery Room Air 04/04/24 04:00 04/04/24 06:00 04/04/24 08:02 Temperature 98.1 F Pulse Rate 84 74 87 Respiratory Rate 18 Blood Pressure 116/64 Pulse Oximetry 99 Oxygen Delivery Meds/Results Radiology Results: ITS Impressions Abdomen X-Ray 04/04/24 08:32 IMPRESSION: 1. Persisting gaseous distention of the sigmoid colon, likely adynamic ileus. Labs Labs: Laboratory Results - last 24 hr 04/03/24 04/03/24 04/04/24 22:39 22:40 06:19 WBC 4.5 3.6 L RBC 3.97 L 3.71 L Hgb 11.2 L 10.4 L Hct 35.8 L 33.8 L MCV 90.2 91.1 MCH 28.2 28.0 MCHC 31.3 L 30.8 L RDW 16.3 H 16.0 H Plt Count 143 L 113 L MPV 11.3 H 11.5 H Immature Gran % (Auto) 0.4 Neut % (Auto) 66.8 Lymph % (Auto) 22.7 Rooks % (Auto) 8.1 Eos % (Auto) 1.6 Baso % (Auto) 0.4 Lymph # (Auto) 1.01 Rooks # (Auto) 0.4 Eos # (Auto) 0.1 Baso # (Auto) 0.0 Abs Immat Gran (auto) 0.02 Absolute Neuts (auto) 3.0 Absolute Nucleated RBC 0.000 Nucleated RBC % 0.0 Sodium 141 142 Potassium 2.8 L* 2.6 L* Chloride 109 H 109 H Carbon Dioxide 21 L 24 Anion Gap 11 9 BUN 8 L D 8 L Creatinine 0.56 L 0.52 L Estim Creat Clear Calc Not Reportable 101 Estimated GFR > 60 > 60 Glucose 104 97 Calcium 7.4 L 7.1 L Phosphorus 2.0 L Magnesium 2.5 H 2.3 Prealbumin 11.1 L TSH (Reflex) 0.968 Quality VTE Prophylaxis VTE prophylaxis: pharmacologic ordered (on apixaban)
[2024-04-04] MEDS: KCL 40 MEQ/D5/0.9% SOD CHL 1,000 ML 100 ML IV CONT (15:44)
--- NOTE | 2024-04-04 15:54 | P.CONGS_ITS ---
Assessment and Plan Assessment and plan (1) Adynamic ileus: Code(s): K56.0 - Paralytic ileus Status: Acute Assessment and Plan: * CT scans continue to show findings of distal sigmoid colitis and proctitis likely resulting in large bowel ileus. He has started moving his bowels since admission and his abdominal distention has improved. No abdominal pain or nausea on my exam. His abdominal exam is completely benign. No indication for surgical intervention at this time. We would recommend GI consultation and continued medical management. Continue to avoid narcotics. Stimulate bowels as needed. Dicyclomine already stopped. Electrolyte monitoring and replacement is imperative. Will continue to follow with abdominal exams and monitoring. (2) Proctocolitis: Code(s): K52.9 - Noninfective gastroenteritis and colitis, unspecified Status: Acute (3) Hypokalemia: Code(s): E87.6 - Hypokalemia Status: Acute Assessment and Plan: * Continue to replace as needed. Potassium 2.6 this am, he received 40 meq IV KCL rider and maintenance fluids adjusted to add KCL. Trend labs closely. (4) Parkinsons disease: Code(s): G20 - Parkinson's disease Status: Acute (5) Thrombocytopenia: Code(s): D69.6 - Thrombocytopenia, unspecified Status: Acute (6) Chronic anticoagulation: Code(s): Z79.01 - terminal press operator (current) use of anticoagulants Status: Acute (7) Paroxysmal atrial fibrillation: Code(s): I48.0 - Paroxysmal atrial fibrillation Status: Acute (8) H/O heart valve replacement with bioprosthetic valve: Code(s): Z95.3 - Presence of xenogenic heart valve Status: Acute (9) Heart failure with reduced ejection fraction: Code(s): I50.20 - Unspecified systolic (congestive) heart failure Status: Acute Plan I have discussed the patient's case and plan of care with Dr. Levin. History of Present Illness Consult details Consult date: 04/04/24 Reason for consult: other (Ileus versus obstruction) Requesting physician: Daisy Borrero PA-C Narrative: This is an 83-year-old with multiple medical problems, who we have been asked to see in surgical consultation for ileus versus obstruction. He was directly admitted to the medical floor from a swing bed at [facility] [place] for general surgery consultation due to unresolving large bowel ileus versus possible obstruction. He was admitted to [place] on 03/04/2024 with a left hip fracture which was repaired 4 days later. The day prior to his surgery he complained of abdominal pain and distension and a CT scan at that time showed distended rectosigmoid, likely adynamic ileus, which we were eventually consulted for at that time. There were no surgical indications and his symptoms had improved with bowels functioning, therefore we had recommended continued conservative medical management. GI was also eventually consulted due to drop in hemoglobin and ongoing abdominal pain and a repeat CT scan showed a moderate amount of stool in the proximal colon with fluid throughout the mid to distal colon consistent with nonspecific diarrhea. Plans were for outpatient follow-up and he was discharged to [place] for rehab on 03/16/2024. He apparently continued to have intermittent episodes of abdominal distension and diffuse pain when this would occur. He had 1 episode of vomiting at [facility] after drinking ensure that he attributed to drinking this supplement. He also had 1 episode of vomiting after taking oral potassium, which he had difficulty tolerating. Otherwise, no nausea or vomiting. He reports symptoms improve after moving his bowels and passing gas. This would happen every few days. He has had several abdominal CT scans and KUB use since discharge that show findings of sigmoid colitis and proctitis with distension, suggesting large bowel ileus. He eventually had NG tube decompression and bowel rest without much improvement. He was then transferred for surgical consultation. Also to note, he has been receiving milk of magnesia 30 mL b.i.d., metoclopramide 10 mg b.i.d., simethicone 80 mg b.i.d., dicyclomine 20 mg t.i.d., and probiotics t.i.d. daily. All narcotics have been held for at least 4-5 days per his . After transfer, his potassium was replaced as his potassium was as low as 2.3 and phosphorus 2.0. He was also given a Dulcolax suppository to with a large bowel movement last night. He reports feeling much better today. He denies any abdominal pain or nausea at the time of my exam. Him and his both report his abdominal distention has improved significantly since admission. He denies any previous abdominal surgeries. GI had also consider colonoscopy during his last hospitalization, but deferred due to his recent hip surgery. Review of Systems 2 Review of Systems: All systems reviewed & are unremarkable except as noted in HPI and below [facility] Past Medical History Medical History Heart failure with reduced ejection fraction Chronic anticoagulation Paroxysmal atrial fibrillation Cardiac arrest (01/2021) V-tach/torsades Gastroesophageal reflux disease Deep venous thrombosis Alcoholism Parkinsons disease Skin cancer Fatty liver Skull fracture Arthritis Pneumonia Pulmonary embolism (01/2021) Seasonal allergies Surgical History Surgical History History of cataract extraction History of open reduction and internal fixation (ORIF) procedure (02/2024) repair left hip fracture with cephalomedullary nail History of local excision of skin lesion 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 Code status: Full code. Smoking packs per day: 1 Smoking cigarettes per day: 20.0 Years smoked: 20 Smoking pack-years: 20.00 Smoking status: Former smoker Second hand tobacco smoke exposure: No Additional smoking assessment comments: quit in 1971 Alcohol intake: former Drinks per week: 7 Substance use: never Substance use type: does not use Do You Feel Safe in your Home?: Yes Lack of Transportation: No Lack of Food: Never True Current Housing: I Have Housing Concerned About Future Housing: No Difficulty Paying Gas/Electric Bills: No Difficulty Paying for Meds: No Currently Unemployed: No Education: Master's Degree or Higher Difficulty w/ Childcare or Family Care: No Living arrangements: with family Additional living arrangements comments: Lives with in [place]. Occupation/Education: retired Spiritual care concerns: No Agree to blood products: Yes Meds Home Medications and Allergies Home Medications ?Medication ?Instructions ?Recorded ?Confirmed ?Type atorvastatin 80 mg tablet 80 mg PO HS #30 tabs 05/27/19 04/03/24 Rx apixaban 5 mg tablet 5 mg PO BID 05/23/21 04/04/24 History famotidine 10 mg tablet 20 mg PO DAILY 05/23/21 04/03/24 History folic acid 1 mg tablet 1 mg PO DAILY 05/23/21 04/03/24 History multivitamin-iron 9 mg-folic acid 1 tablet PO DAILY 05/23/21 04/03/24 History 400 mcg-calcium and minerals tablet (Thera-M) sacubitril 24 mg-valsartan 26 mg 1 tablet PO BID 05/23/21 04/04/24 History tablet carvedilol 3.125 mg tablet 1.56 mg PO Q12H 12/24/21 04/03/24 History loperamide 2 mg capsule (Imodium 2 mg PO Q6H PRN diarrhea 12/24/21 04/03/24 History A-D) hyoscyamine sulfate 0.125 mg 0.125 mg sublingual QID PRN 03/13/22 04/03/24 Rx sublingual tablet dyspepsia #120 tabs sacubitril 24 mg-valsartan 26 mg 1 tablet PO BID 03/04/24 04/03/24 History tablet (Entresto) furosemide 20 mg tablet 20 mg PO QAM 30 days #0 tabs 03/16/24 04/03/24 Rx oxycodone-acetaminophen 10 mg-325 1 tablet PO Q6H PRN Pain Rated 03/16/24 04/03/24 Rx mg tablet 7-10 5 days #12 tabs Saccharomyces boulardii 250 mg 250 mg PO TID #10 caps 04/03/24 04/03/24 Rx capsule (Florastor) dicyclomine 10 mg capsule 20 mg (2 x 10 mg) PO TID #10 caps 04/03/24 04/03/24 Rx magnesium hydroxide 400 mg/5 mL 30 ml PO BID #355 mL 04/03/24 04/03/24 Rx oral suspension (Milk of Magnesia) metoclopramide HCl 10 mg tablet 10 mg PO BID #10 tabs 04/03/24 04/03/24 Rx (Reglan) [id number]-wtfqnwfkof-ousfrryix 1 applic topical DAILY 04/03/24 04/03/24 History topical packet potassium chloride 20 mEq oral 40 meq PO BID 04/03/24 04/03/24 History packet potassium chloride 20 mEq 40 meq (2 x 20 mEq) PO BIDWM #10 04/03/24 04/03/24 Rx tablet,extended release (K-Tab) tabs simethicone 80 mg chewable tablet 80 mg PO QID #10 tabs 04/03/24 04/03/24 Rx Allergies Allergy/AdvReac Type Severity Reaction Status Date / Time No Known Allergies Allergy Unknown Verified 10/23/22 11:41 Vital Signs Vital Signs - 24 hr 04/03/24 22:25 04/03/24 23:19 04/04/24 00:00 Temperature 98.1 F Pulse Rate 74 69 Respiratory Rate 18 Blood Pressure 116/64 Pulse Oximetry 99 Oxygen Delivery Room Air 04/04/24 04:00 04/04/24 06:00 04/04/24 08:02 Temperature 98.1 F Pulse Rate 84 74 87 Respiratory Rate 18 Blood Pressure 116/64 Pulse Oximetry 99 Oxygen Delivery 04/04/24 14:00 Temperature 97.1 F L Pulse Rate 60 Respiratory Rate 18 Blood Pressure 125/76 Pulse Oximetry 100 Oxygen Delivery Exam 2 Const: General: comfortable and no acute distress Nutritional Appearance: a verage body habitus Orientation/consciousness: patient oriented x3 HENMT: Head: normocephalic and atraumatic Ears: hearing grossly normal bilaterally Mouth: Yes moist mucous membranes Eyes: General: appearance normal, both eyes and all related structures P upils: Equal, round and reactive pupils present Neck: Neck: normal visual inspection and full ROM Resp: Effort & Inspection: no respiratory distress Auscultation: clear to auscultation bilaterally Cardio: Rate: regular rate Rhythm: regular rhythm Peripheral pulses: P eripheral pulses 2+ throughout GI: Inspection: non-distended, no scars and no visible herniation GI Palp: Yes Soft to palpation, No Tenderness to palpation present (GI), No Guarding due to palpation present (GI), Yes No hepatosplenomegaly present and No Rebound tenderness present Auscultation: normal bowel sounds Skin: General skin exam: normal color Other: Left hip incisions with no erythema or drainage Neuro: General: moves all extremities and no focal motor deficits Speech: n ormal speech Motor exam (neuro): 5/5 motor strength present throughout Extrem: General: normal to inspection and no edema Psych: Mental Status: mental status grossly normal Attitude: cooperative Insight: Good insight present (Psych) Judgement: Good judgement present (Psych) Results Labs 04/04/24 06:19 04/04/24 06:19 Labs: Abnormal lab results 04/03/24 04/04/24 Range/Units 22:40 06:19 WBC 3.6 L (4.5-10.0) K/mm3 RBC 3.97 L 3.71 L (4.6-6.20) M/mm3 Hgb 11.2 L 10.4 L (14.0-18.0) g/dL Hct 35.8 L 33.8 L (42.0-52.0) % MCHC 31.3 L 30.8 L (32-36) g/dl RDW 16.3 H 16.0 H (11.5-14.5) % Plt Count 143 L 113 L (150-375) k/mm3 MPV 11.3 H 11.5 H (7.4-10.4) fl Potassium 2.8 L* 2.6 L* (3.4-5.0) mmol/L Chloride 109 H 109 H (98-107) mmol/L Carbon Dioxide 21 L (22-30) mmol/L BUN 8 L D 8 L (9-20) mg/dL Creatinine 0.56 L 0.52 L (0.7-1.3) mg/dL Calcium 7.4 L 7.1 L (8.4-10.2) mg/dL Phosphorus 2.0 L (2.5-4.5) mg/dL Magnesium 2.5 H (1.6-2.3) mg/dL Prealbumin 11.1 L (17.6-36.0) mg/dL Diabetes panel 04/03/24 04/04/24 Range/Units 22:40 06:19 Sodium 141 142 (137-145) mmol/L Potassium 2.8 L* 2.6 L* (3.4-5.0) mmol/L Chloride 109 H 109 H (98-107) mmol/L Carbon Dioxide 21 L 24 (22-30) mmol/L BUN 8 L D 8 L (9-20) mg/dL Creatinine 0.56 L 0.52 L (0.7-1.3) mg/dL Glucose 104 97 (65-110) mg/dL Calcium 7.4 L 7.1 L (8.4-10.2) mg/dL Calcium panel 04/03/24 04/04/24 Range/Units 22:40 06:19 Calcium 7.4 L 7.1 L (8.4-10.2) mg/dL Phosphorus 2.0 L (2.5-4.5) mg/dL Pituitary panel 04/03/24 04/04/24 Range/Units 22:40 06:19 Sodium 141 142 (137-145) mmol/L Potassium 2.8 L* 2.6 L* (3.4-5.0) mmol/L Chloride 109 H 109 H (98-107) mmol/L Carbon Dioxide 21 L 24 (22-30) mmol/L BUN 8 L D 8 L (9-20) mg/dL Creatinine 0.56 L 0.52 L (0.7-1.3) mg/dL Glucose 104 97 (65-110) mg/dL Calcium 7.4 L 7.1 L (8.4-10.2) mg/dL Adrenal panel 04/03/24 04/04/24 Range/Units 22:40 06:19 Sodium 141 142 (137-145) mmol/L Potassium 2.8 L* 2.6 L* (3.4-5.0) mmol/L Chloride 109 H 109 H (98-107) mmol/L Carbon Dioxide 21 L 24 (22-30) mmol/L BUN 8 L D 8 L (9-20) mg/dL Creatinine 0.56 L 0.52 L (0.7-1.3) mg/dL Glucose 104 97 (65-110) mg/dL Calcium 7.4 L 7.1 L (8.4-10.2) mg/dL All other labs normal. Imaging Additional studies: ITS Impressions Abdomen X-Ray 04/04/24 08:32 IMPRESSION: 1. Persisting gaseous distention of the sigmoid colon, likely adynamic ileus.
[2024-04-04 16:25] LABS: Potassium 2.9 mmol/L (3.4-5.0)
[2024-04-04] MEDS: SACCHAROMYCES BOULARDII 250 MG CAPSULE PO (18:00)
[2024-04-04] MEDS: DICYCLOMINE HCL 10 MG CAPSULE 20 MG PO (18:00)
[2024-04-04] MEDS: POTASSIUM CHLORIDE 20 MEQ PACKET (FOR LIQUID) 40 MEQ PO (18:00)
[2024-04-04] MEDS: METOCLOPRAMIDE HCL 10 MG TABLET PO (18:00)
[2024-04-04] MEDS: SACUBITRIL/VALSARTAN 24-26 MG TABLET 1 TAB PO (20:15)
[2024-04-04] MEDS: carvediloL 1.56 MG TABLET PO (20:15)
[2024-04-04] MEDS: APIXABAN 5 MG TABLET PO (20:16)
[2024-04-04] MEDS: SIMETHICONE 80 MG TAB.CHEW PO (20:16)
[2024-04-04] MEDS: ATORVASTATIN 40 MG TABLET 80 MG PO (20:21)
[2024-04-05] VITALS (11 sets, daily range): BP systolic 107–123; BP diastolic 60–64; PULSE 69–97; RESP 16–20; TEMP 36.5–36.8; O2SAT 100
[2024-04-05] MEDS: KCL 40 MEQ/D5/0.9% SOD CHL 1,000 ML 100 ML IV CONT ×2 (03:15→13:44)
[2024-04-05] MEDS: DICYCLOMINE HCL 10 MG CAPSULE 20 MG PO (09:01)
[2024-04-05] MEDS: THERAPEUTIC MULTIVITAMINS/MINERALS TAB (*BKC) 1 TABLET PO (09:01)
[2024-04-05] MEDS: POTASSIUM CHLORIDE 20 MEQ PACKET (FOR LIQUID) 40 MEQ PO ×2 (09:01→17:50)
[2024-04-05] MEDS: FAMOTIDINE 20 MG TABLET PO (09:02)
[2024-04-05] MEDS: FUROSEMIDE 20 MG TABLET PO (09:02)
[2024-04-05] MEDS: FOLIC ACID 1 MG TABLET PO (09:02)
[2024-04-05] MEDS: SACCHAROMYCES BOULARDII 250 MG CAPSULE PO ×3 (09:02→17:50)
[2024-04-05] MEDS: SACUBITRIL/VALSARTAN 24-26 MG TABLET 1 TAB PO ×2 (09:02→20:46)
[2024-04-05] MEDS: APIXABAN 5 MG TABLET PO ×2 (09:02→20:46)
[2024-04-05] MEDS: SIMETHICONE 80 MG TAB.CHEW PO ×4 (09:02→20:47)
[2024-04-05] MEDS: METOCLOPRAMIDE HCL 10 MG TABLET PO ×2 (09:02→17:51)
[2024-04-05] MEDS: carvediloL 1.56 MG TABLET PO ×2 (09:06→20:46)
--- NOTE | 2024-04-05 09:37 | P.CONGI_ITS ---
<Statement entered by Dl Tran MD - 04/05/24 15:19> I, Dl Tran MD, have provided a substantive portion of the care of this patient and discussed the patient with my Nurse Practitioner. I have reviewed any new relevant radiographic and laboratory results including medications. I agree with her documentation as noted below.?I personally performed the medical decision making and much of the history and exam for this encounter. briefly, he had hip surgery last month and admitted with ileus, CT scan showed possible adynamic ileus, can not rule out proctitis or sigmoid inflammation. He is not best historian and unsure if he even had colonoscopy. Surgery on board and he is clinically doing better, occult blood in stool last time was negative. No indication for acute endoscopic evaluation since he is doing better and recovering from hip fracture. Advance diet per surgery team and we could always set up sigmoidoscopy as outpatient in 4-6 weeks Assessment and Plan Assessment and plan (1) Proctocolitis: Code(s): K52.9 - Noninfective gastroenteritis and colitis, unspecified Status: Acute (2) Adynamic ileus: Code(s): K56.0 - Paralytic ileus Status: Acute (3) Chronic anticoagulation: Code(s): Z79.01 - continuous churn buttermaker (current) use of anticoagulants Status: Acute (4) Pancytopenia: Code(s): D61.818 - Other pancytopenia Status: Acute Plan 1. Proctocolitis/ ileus/ abdominal pain /abdominal distension: Patient unable to say if he has ever had a colonoscopy. Patient was previously seen by GI during a hospitalization in February and an outpatient endoscopic evaluation was recommended after a delay given that he had recently had hip surgery. Patient had an ORIF performed 03/08/2024 and was at [facility] for rehab prior to being transferred here for persistent large bowel ileus. Abdominal x-ray shows persistent gas or steatosis and glez in the sigmoid colon likely adynamic ileus. CT shows distal sigmoid colitis and proctitis likely resulting in large bowel ileus and cystitis. Patient was seen yesterday by surgery who stated that surgical intervention is not warranted at this time and recommended medical management. Since admission the patient states that his abdominal pain and distention has resolved after he was given a suppository and had a large bowel movement. His abdominal exam was unremarkable. He is tolerating p.o. intake without difficulty. Patient with history of bioprosthetic heart valve replacement, PE, DVT and stroke on chronic anticoagulation with Eliquis. Fecal calprotectin pending. Fecal occult blood was negative March 12. Unclear if ileus and colitis is secondary to ischemic colitis versus infectious versus IBD versus [place]'s vs Stercoral colitis. * Care with antispasmodics and narcotics * Miralax daily as needed to avoid constipation * Anusol suppository daily to topically help with inflammation noted on imaging * Outpatient colonoscopy preferably 4-6 months following hip surgery 2. Pancytopenia/elevated LFT's: Labs this admission showed WBCs 4, HGB 10, HCT 34, MCV 91, platelets 113. Total bilirubin 0.6, AST 32, ALT 14, alkaline phosphatase 169, albumin 2.6. Patient was last seen by GI during February hospitalization and it was thought that his clinical presentation may be secondary to cirrhosis not noted on imaging given his longstanding history of alcohol use but this can not be confirmed at this time without further workup but we will check fibrosis panel. Patient denies any signs of active GI bleeding. * Check fibrosis panel * Primary care team to continue monitoring H&H and transfuse as needed to keep HGB > 7 * Primary care team to consider hematology evaluation to evaluate non GI related source of pancytopenia Thank you very much for allowing me to share in the care of this very nice patient. This report may have been done utilizing a voice recognition system. Attempts have been made to correct errors. However, there may be uncorrected grammatical, spelling, and recognition errors present. GI Consult Note Consult date/time: 04/05/24 09:37 Reason for consult: Colitis/proctitis HPI: This is a pleasant 83-year-old male with a significant past medical history of Parkinson's disease, GERD, pneumonia, pulmonary embolism, bioprosthetic heart valve replacement, DVT, pacemaker, history of stroke, CAD, HTN, and prostate cancer who presented to [facility] from [facility] swing bed program for evaluation of abdominal distension and adynamic ileus unrelieved with basic measures. Patient was originally hospitalized at [facility] from 03/04/24-03/16/24 after sustaining a ground level fall and fracturing his left femur. He was taken to the OR on 03/08/2024 for an ORIF of his left femur and postop was noted to have a adynamic ileus. GI consulted for colitis. Patient was recently admitted to [facility] for right hip fracture and surgical repair 03/08/2024, during that admission he was found to have CRISTINA and thrombocytopenia and was seen by GI (Dr. Jimenes). It was thought at that time that his presentation was likely related to ETOH related cirrhosis and outpatient EGD and Colonoscopy was recommended after patient had healed from hip surgery. Patient was discharged to [facility] for rehab 03/16/2024 and was then transferred back [facility] from [facility] Swing bed 04/03/2024 for unresolving large bowel ileus vs obstruction. Patient had been complaining of abdominal pain and distention prior to his hip surgery. Patient is a somewhat poor historian so accuracy of obtained information could not be verified. Patient states that since his admission he had an intervention and feels much better . he was unable to provide any information regarding his bowel habits prior to admission or since admission. His abdominal pain and distention has improved and he is tolerating p.o. intake well. He denies any nausea, vomiting, odynophagia, dysphagia, GERD, regurgitation, early satiety, weight loss or appetite loss. bowel frequency unknown so unable to say if he is experiencing diarrhea, constipation, hematochezia or melena. Patient is on Eliquis. Family history of some CRC or IBD unknown. ENDOSCOPY HISTORY: Patient is unable to say if he has ever had an EGD or colonoscopy LABS AND STOOL STUDIES: LABS 04/04/2024: Sodium 142, potassium 2.9, BUN 8, creatinine 0.52, GFR > 60 WBC is 4, HGB 10, HCT 34, MCV 91, platelets 113 Total bilirubin 0.6, AST 32, ALT 14, alkaline phosphatase 179, albumin 2.6 Magnesium 2.3, calcium 7.1, TSH 0.968 Fecal calprotectin pending IMAGING: Abdominal Xray 04/04/2024 IMPRESSION: 1. Persisting gaseous distention of the sigmoid colon, likely adynamic ileus. CT abd/pelvis w/contrast 04/02/2024 IMPRESSION: Distal sigmoid colitis and proctitis, likely resulting in large bowel ileus. Obstruction not excluded. Cystitis. Slightly decreased size of the peripherally enhancing fat and fluid collection surrounding the internally fixated left intertrochanteric fracture, presumably posttraumatic/postsurgical change. Infection/abscess not excluded. Multiple pancreatic cysts. 3.9 cm infrarenal abdominal aortic aneurysm. Recommend CT abdomen and pelvis with contrast follow-up in 2 years for both findings. Abdominal Xray 04/01/2024 IMPRESSION: 1. Unchanged gaseous distention of the colon consistent with adynamic ileus. CT abd/pelvis w/contrast 03/27/2024 IMPRESSION: Air and fluid opacification of the distal colon and rectum. No obstruction. Abnormal left adrenal gland for which follow-up contrast enhanced CT or MRI with renal mass protocol is recommended, if the patient is clinically able. Nonobstructing renal calculi. Cholelithiasis. Bilateral pleural effusions with adjacent compressive atelectasis. PEG scan 05/05/2023 FINDINGS: Head/neck: Typical pattern of symmetric physiologic increased activity in the lacrimal, parotid and submandibular glands as well as along the mucosa of the nasal and oral cavities, the luis-, naso- and hypopharynx, the glottis and esophagus. There is also a typical pattern of symmetric tiny foci of mild likely physiologic neural ganglia uptake at a few bilateral cervical neural foramina. No pathologically enlarged cervical lymphadenopathy or suspicious foci of increased uptake in the visualized head or neck. Chest: Again seen is peripheral predominant chronic interstitial lung disease. Calcified right upper lobe nodule consistent with old granulomatous disease. No suspicious pulmonary nodules, pneumonia, pulmonary edema or pleural effusion. Heart size is normal. Atherosclerotic coronary artery calcific location. Aortic valve repair. Dual-lead cardiac pacemaker with lead tips at the right atrial appendage and at the apex of the right ventricle. No pericardial effusion. Thoracic aorta is normal in caliber. Small sliding-type hiatal hernia. No pathologically enlarged or PSMA avid thoracic lymphadenopathy. Abdomen/pelvis/proximal thighs: Physiologic renal accumulation and excretion of activity in the kidneys, bladder and along portions of ureters. Moderate prostatomegaly. Heterogeneous increased uptake at the prostate which has decreased since the prior study. Most intense focus remains at the left peripheral zone with maximal SUV of 14.7, previously 31.1. Normal degree and slightly heterogenous pattern of increased uptake throughout the liver and spleen without radiologic correlate or dominant PSMA avid lesion. There are few small gallstones along the dependent aspect of the normal partially decompressed gallbladder. The pancreas and right adrenal gland are normal. No significant interval change in a 2.9 cm left adrenal mass since CT dated 01/23/2022 most consistent with an adenoma. Moderate uptake scattered throughout the bowels with typical duodenal and proximal jejunal predominance and without radiologic correlate, also likely physiologic. Small bilateral fat- containing inguinal hernias. The prior increased uptake associated with a subcentimeter left perirectal lymph node has resolved. No change in a fusiform infrarenal abdominal aortic aneurysm measuring up to 3.6 cm. No other abnormal foci of increased uptake or pathologically enlarged lymphadenopathy in the abdomen, pelvis or proximal thighs. Musculoskeletal: There are bridging osteophytes at multiple levels in the thoracic spine consistent with diffuse idiopathic skeletal hyperostosis (DISH). A small focus of mild uptake previously seen along the posterior margin of the sacrum is no longer visualized. No suspicious lytic, blastic or abnormally PSMA avid bone lesions to suggest metastatic disease. IMPRESSION: 1. Interval decrease in PSMA uptake at the prostate the most intense focus remaining in the left peripheral zone with decreased maximal SUV from 31.1 to 14.7 consistent with response to treatment of primary prostate cancer. 2. Interval resolution of prior mild PSMA associated with a left perirectal lymph node and along the posterior margin of the sacrum consistent with response to treatment of metastatic disease. No new or progressive metastatic disease appreciated. Review of Systems 2 Constitutional: Constitutional: Reports as per HPI ENT: Reports as per HPI Cardiovascular: Cardiovascular: Reports as per HPI, Denies chest pain and Denies dyspnea Respiratory: Respiratory: Denies cough and Denies dyspnea Gastrointestinal: Gastrointestinal: Reports as per HPI Musculoskeletal: Musculoskeletal: Reports as per HPI Integumentary/Breasts: Skin/Breast: Reports as per HPI Psychiatric: Psychiatric: Reports as per HPI and Reports confusion Endocrine: Endocrine: Reports no additional endocrine complaints Hematologic/Lymphatic: Hematologic/Lymphatic: Reports no additional hematologic/lymphatic complaints [facility] Past Medical History Medical History Heart failure with reduced ejection fraction Chronic anticoagulation Paroxysmal atrial fibrillation Cardiac arrest (01/2021) V-tach/torsades Gastroesophageal reflux disease Deep venous thrombosis Alcoholism Parkinsons disease Skin cancer Fatty liver Skull fracture Arthritis Pneumonia Pulmonary embolism (01/2021) Seasonal allergies Surgical History Surgical History History of cataract extraction History of open reduction and internal fixation (ORIF) procedure (02/2024) repair left hip fracture with cephalomedullary nail History of local excision of skin lesion History of transcatheter aortic valve replacement (TAVR) (04/2021) History of permanent cardiac pacemaker placement History of tonsillectomy Family History Family History Father Congestive heart failure Heart disease Mother Heart disease Breast cancer Sibling Breast cancer Hx of CABG Social History Social History Social History: Surrogate medical decision maker: Evette Kulkarni, spouse ([phone]). Code status: Full code. Smoking packs per day: 1 Smoking cigarettes per day: 20.0 Years smoked: 20 Smoking pack-years: 20.00 Smoking status: Former smoker Second hand tobacco smoke exposure: No Additional smoking assessment comments: quit in 1971 Alcohol intake: former Drinks per week: 7 Substance use: never Substance use type: does not use Do You Feel Safe in your Home?: Yes Lack of Transportation: No Lack of Food: Never True Current Housing: I Have Housing Concerned About Future Housing: No Difficulty Paying Gas/Electric Bills: No Difficulty Paying for Meds: No Currently Unemployed: No Education: Master's Degree or Higher Difficulty w/ Childcare or Family Care: No Living arrangements: with family Additional living arrangements comments: Lives with in [place]. Occupation/Education: retired Spiritual care concerns: No Agree to blood products: Yes Meds Home Medications and Allergies Home Medications ?Medication ?Instructions ?Recorded ?Confirmed ?Type atorvastatin 80 mg tablet 80 mg PO HS #30 tabs 05/27/19 04/03/24 Rx apixaban 5 mg tablet 5 mg PO BID 05/23/21 04/04/24 History famotidine 10 mg tablet 20 mg PO DAILY 05/23/21 04/03/24 History folic acid 1 mg tablet 1 mg PO DAILY 05/23/21 04/03/24 History multivitamin-iron 9 mg-folic acid 1 tablet PO DAILY 05/23/21 04/03/24 History 400 mcg-calcium and minerals tablet (Thera-M) sacubitril 24 mg-valsartan 26 mg 1 tablet PO BID 05/23/21 04/04/24 History tablet carvedilol 3.125 mg tablet 1.56 mg PO Q12H 12/24/21 04/03/24 History loperamide 2 mg capsule (Imodium 2 mg PO Q6H PRN diarrhea 12/24/21 04/03/24 History A-D) hyoscyamine sulfate 0.125 mg 0.125 mg sublingual QID PRN 03/13/22 04/03/24 Rx sublingual tablet dyspepsia #120 tabs sacubitril 24 mg-valsartan 26 mg 1 tablet PO BID 03/04/24 04/03/24 History tablet (Entresto) furosemide 20 mg tablet 20 mg PO QAM 30 days #0 tabs 03/16/24 04/03/24 Rx oxycodone-acetaminophen 10 mg-325 1 tablet PO Q6H PRN Pain Rated 03/16/24 04/03/24 Rx mg tablet 7-10 5 days #12 tabs Saccharomyces boulardii 250 mg 250 mg PO TID #10 caps 04/03/24 04/03/24 Rx capsule (Florastor) dicyclomine 10 mg capsule 20 mg (2 x 10 mg) PO TID #10 caps 04/03/24 04/03/24 Rx magnesium hydroxide 400 mg/5 mL 30 ml PO BID #355 mL 04/03/24 04/03/24 Rx oral suspension (Milk of Magnesia) metoclopramide HCl 10 mg tablet 10 mg PO BID #10 tabs 04/03/24 04/03/24 Rx (Reglan) uzgppabf-aiclnjjasv-pfvbswykh 1 applic topical DAILY 04/03/24 04/03/24 History topical packet potassium chloride 20 mEq oral 40 meq PO BID 04/03/24 04/03/24 History packet potassium chloride 20 mEq 40 meq (2 x 20 mEq) PO BIDWM #10 04/03/24 04/03/24 Rx tablet,extended release (K-Tab) tabs simethicone 80 mg chewable tablet 80 mg PO QID #10 tabs 04/03/24 04/03/24 Rx Allergies Allergy/AdvReac Type Severity Reaction Status Date / Time No Known Allergies Allergy Unknown Verified 10/23/22 11:41 Vital Signs Vital Signs - 24 hr 04/04/24 12:00 04/04/24 14:00 04/04/24 16:00 Temperature 97.1 F L Pulse Rate 74 60 78 Respiratory Rate 18 Blood Pressure 125/76 Pulse Oximetry 100 Oxygen Delivery 04/04/24 20:00 04/04/24 20:00 04/04/24 20:15 Temperature Pulse Rate 69 72 78 Respiratory Rate 16 Blood Pressure Pulse Oximetry 100 Oxygen Delivery Room Air 04/04/24 21:26 04/05/24 00:00 04/05/24 04:00 Temperature 98.7 F Pulse Rate 69 70 76 Respiratory Rate 16 Blood Pressure 118/81 Pulse Oximetry 100 Oxygen Delivery 04/05/24 06:00 04/05/24 09:06 Temperature 98.3 F Pulse Rate 79 69 Respiratory Rate 16 Blood Pressure 122/64 Pulse Oximetry 100 Oxygen Delivery Exam 2 Const: General: cooperative, healthy appearing, comfortable, no acute distress and well developed Orientation/consciousness: oriented to person, oriented to place, oriented to time and patient oriented x3 HENMT: Head: normal to inspection, normocephalic and atraumatic Mouth: Yes Normal oral and palatal mucosa present and Yes moist mucous membranes Eyes: General: appearance normal, both eyes and all related structures C onjunctivae: conjunctivae normal Sclera: sclerae normal Pupils: Equal, round and reactive pupils present Neck: Neck: normal visual inspection Chest: Chest palpation & inspection: normal inspection of the chest Resp: Effort & Inspection: normal respiratory effort and able to speak in complete sentences Auscultation: clear to auscultation bilaterally Cardio: Jugular venous distension: no JVD Rate: regular rate Rhythm: r egular rhythm Heart sounds: S1 normal heart sound present and S2 normal heart sound present GI: Inspection: normal to inspection GI Palp: Yes Soft to palpation, No Tenderness to palpation present (GI), No Guarding due to palpation present (GI) and Yes No hepatosplenomegaly present Auscultation: normal bowel sounds R ectal Exam: deferred Skin: General skin exam: normal color and no rashes or lesions noted Neuro: General: oriented to person Cranial nerves: Yes Equal, round and reactive pupils present Speech: normal speech Extrem: General: normal to inspection and no clubbing, cyanosis or edema Psych: Appearance: grossly normal and well kempt Affect: normal affect Results Labs 04/04/24 06:19 04/04/24 16:10 Labs: BMP 04/04/24 16:10 Potassium 2.9 L
[2024-04-05 11:07] LABS: Basophils Percent Auto 0.4 % (0.2-1.2); Eosinophils Absolute Auto 0.1 K/mm3 (0-0.3); Eosinophils Percent Auto 1.6 % (0-4.4); Hemoglobin 9.9 g/dL (14.0-18.0); Immature Granulocyte Absolute 0.02 K/mm3 (0.00-0.031); Immature Granulocyte Percent A 0.4 % (0-0.5); Immature Platelet Fraction Pct 5.6 % (0.9-11.2); Lymphocytes Absolute Auto 0.59 K/mm3 (0.9-3.2); Lymphocytes Percent Auto 13.3 % (18.3-44.2); Mean Corpuscular HGB Conc 30.9 g/dl (32-36); Mean Corpuscular Hemoglobin 27.9 pg (26-34); Mean Corpuscular Volume 90.1 fl (80-100); Mean Platelet Volume 11.9 fl (7.4-10.4); Monocytes Absolute Auto 0.4 K/mm3 (0.1-0.6); Monocytes Percent Auto 7.9 % (2.6-8.5); Neutrophils Absolute Auto 3.4 K/mm3 (1.3-6.7); Neutrophils Percent Auto 76.4 % (45.5-73.1); Platelet Count Result 105 k/mm3 (150-375); Red Blood Count 3.55 M/mm3 (4.6-6.20); Red Cell Distribution Width 15.8 % (11.5-14.5); White Blood Count 4.5 K/mm3 (4.5-10.0)
[2024-04-05 11:29] LABS: Alanine Aminotransferase 12 U/L (6-50); Albumin Level 2.8 g/dL (3.5-5.1); Alkaline Phosphatase 134 U/L (38-126); Anion Gap 7 mmol/L (4-12); Aspartate Amino Transferase 28 U/L (17-59); Bilirubin,Total 0.6 mg/dL (0.2-1.3); Blood Urea Nitrogen 5 mg/dL (9-20); Calcium 7.3 mg/dL (8.4-10.2); Carbon Dioxide 23 mmol/L (22-30); Chloride 112 mmol/L (98-107); Estimated CRCL calculation 110 ml/min; Estimated Glomerular Filt Rate > 60; Glucose 110 mg/dL (65-110); Magnesium 1.9 mg/dL (1.6-2.3); Potassium 3.5 mmol/L (3.4-5.0); Sodium 142 mmol/L (137-145)
--- NOTE | 2024-04-05 12:32 | PM.IMPN ---
Progress Note: A&P Assessment and Plan (1) Ileus: Code(s): K56.7 - Ileus, unspecified Status: Acute Assessment and Plan: Reports large bowel movement /10 after suppository General surgery following, appreciate recommendations. Added a Dulcolax suppository. Miralax daily as needed. Hold Narcotics. KUB today still shows adynamic ileus however his abdomen is less distended and he denies any nausea and vomiting We will go ahead and increase his diet today GI consulted for further recommendations, plan Colonoscopy in 6 weeks as an outpatient. (2) Proctocolitis: Code(s): K52.9 - Noninfective gastroenteritis and colitis, unspecified Status: Acute Assessment and Plan: GI consulted, appreciate recommendations. Plan colonoscopy in 6 weeks outpatient. Liver fibrosis panel ordered. Hydrocortisone 25 mg rectal daily Miralax 17 gram PO daily PRN. (3) Hypokalemia: Code(s): E87.6 - Hypokalemia Status: Acute Assessment and Plan: Potassium 2.6>2.9>3.5 Potassium Chloride 40 meq PO BID D5 40meq KCL @ 100 ml/hr. continue to trend (4) Paroxysmal atrial fibrillation: Code(s): I48.0 - Paroxysmal atrial fibrillation Status: Acute Assessment and Plan: continue Eliquis and Coreg (5) Heart failure with reduced ejection fraction: Code(s): I50.20 - Unspecified systolic (congestive) heart failure Status: Acute Assessment and Plan: Continue Entresto, carvedilol, Lasix (6) Weakness: Code(s): R53.1 - Weakness Status: Acute Assessment and Plan: PT and OT Case management following for additional rehab needs Subjective Date/time seen: 04/05/24 12:32 Interval history: Patient sitting up in chair. at bedside. Patient denies chest pain, palpitations, headache, dizziness, nausea, or vomiting. Patient reports occasional abdominal pain that is a 2 , and sharp. Patient tolerating food well. reports that GI plans to do a Colonoscopy in 6 weeks as an outpatient. does not want patient to continue Atorvastatin at this time, wants heels floated, and patient turned every 2 hours. Review of Systems Review of Systems: All systems reviewed & are unremarkable except as noted in HPI and below Exam Const: General: comfortable and no acute distress Resp: Effort & Inspection: normal respiratory effort Auscultation: clear to auscultation bilaterally Cardio: Rate: regular rate Rhythm: regular rhythm GI: GI Palp: Yes Soft to palpation Auscultation: normal bowel sounds Skin: Other: Sacral wound with slight decrease in redness, bilateral heel wounds with dressing intact. See wound care recommendations. Neuro: Speech: normal speech Psych: Mental Status: mental status grossly normal Affect: normal affect Objective Data Vital Signs Vital Signs: Vital Signs - 24 hr 04/04/24 14:00 04/04/24 16:00 04/04/24 20:00 Temperature 97.1 F L Pulse Rate 60 78 69 Respiratory Rate 18 16 Blood Pressure 125/76 Pulse Oximetry 100 100 Oxygen Delivery Room Air 04/04/24 20:00 04/04/24 20:15 04/04/24 21:26 Temperature 98.7 F Pulse Rate 72 78 69 Respiratory Rate 16 Blood Pressure 118/81 Pulse Oximetry 100 Oxygen Delivery 04/05/24 00:00 04/05/24 04:00 04/05/24 06:00 Temperature 98.3 F Pulse Rate 70 76 79 Respiratory Rate 16 Blood Pressure 122/64 Pulse Oximetry 100 Oxygen Delivery 04/05/24 09:06 04/05/24 10:55 Temperature Pulse Rate 69 Respiratory Rate Blood Pressure Pulse Oximetry Oxygen Delivery Room Air Intake/Output Intake/Output: Intake & Output 04/02/24 04/03/24 04/04/24 04/05/24 23:59 23:59 23:59 23:59 Intake Total 540 1120 Balance 540 1120 Meds/Results Medications: Active Medications Generic Name Dose Route Start Last Admin Trade Name Kevynq PRN Reason Stop Dose Admin Apixaban 5 mg 04/04/24 21:00 04/05/24 09:02 Apixaban 5 Mg Tablet PO 5 mg Q12HR YARA Administration Carvedilol 1.56 mg 04/04/24 21:00 04/05/24 09:06 Carvedilol 1.56 Mg Tablet PO 1.56 mg Q12H YARA Administration Dicyclomine HCl 20 mg 04/04/24 17:50 04/05/24 09:01 Dicyclomine Hcl 10 Mg Capsule PO 20 mg TID YARA Administration Famotidine 20 mg 04/05/24 09:00 04/05/24 09:02 Famotidine 20 Mg Tablet PO 20 mg DAILY YARA Administration Folic Acid 1 mg 04/05/24 09:00 04/05/24 09:02 Folic Acid 1 Mg Tablet PO 1 mg DAILY YARA Administration Furosemide 20 mg 04/05/24 09:00 04/05/24 09:02 Furosemide 20 Mg Tablet PO 20 mg QAM YARA Administration Hydrocortisone Acetate 25 mg 04/06/24 09:00 Hydrocortisone Acetate 25 Mg Suppository RECTAL DAILY YARA Hyoscyamine 0.125 mg 04/04/24 17:42 Hyoscyamine Sulfate 0.125 Mg Tablet SUBLINGUAL QID PRN dyspepsia Potassium Chloride/Dextrose/Sod Cl 1,000 mls @ 100 mls/hr 04/04/24 13:30 04/05/24 03:15 Kcl 40 Meq/D5ns IV CONT 100 mls/hr .Q10H YARA Administration Metoclopramide HCl 10 mg 04/04/24 17:50 04/05/24 09:02 Metoclopramide Hcl 10 Mg Tablet PO 10 mg BID YARA Administration Multivitamins/Calcium 1 tablet 04/05/24 09:00 04/05/24 09:01 Therapeutic Multivitamins/Minerals Tab (*Bkc) PO 1 tablet DAILY [facility] Administration Neomycin/Polymyxin/Bacitracin 1 applic 04/05/24 09:00 04/05/24 12:29 Neomycin/Polymyxin/Bacitracin Ointment 15 Gm Tube TOPICAL Not Given DAILY [facility] Oxycodone/Acetaminophen 1 tab 04/04/24 17:42 Oxycodone/Acetaminophen (*Crx) 10-325 Mg Tablet PO Q6H PRN Pain Rated 7-10 Polyethylene Glycol 17 gm 04/05/24 09:53 Polyethylene Glycol 3350 17 Gm Powd.Pack PO QAM PRN Constipation Potassium Chloride 40 meq 04/04/24 17:55 04/05/24 09:01 Potassium Chloride 20 Meq Packet (For Liquid) PO 40 meq BID YARA Administration Saccharomyces Boulardii 250 mg 04/04/24 17:00 04/05/24 12:29 Saccharomyces Boulardii 250 Mg Capsule PO 250 mg TID YARA Administration Sacubitril/Valsartan 1 tab 04/04/24 21:00 04/05/24 09:02 Sacubitril/Valsartan 24-26 Mg Tablet PO 1 tab Q12HR YARA Administration Simethicone 80 mg 04/04/24 21:00 04/05/24 12:29 Simethicone 80 Mg Tab.Chew PO 80 mg QID YARA Administration Radiology Results: ITS Impressions Abdomen X-Ray 04/04/24 08:32 IMPRESSION: 1. Persisting gaseous distention of the sigmoid colon, likely adynamic ileus. Labs Labs: Laboratory Results - last 24 hr 04/04/24 04/05/24 16:10 10:56 WBC 4.5 RBC 3.55 L Hgb 9.9 L Hct 32.0 L MCV 90.1 MCH 27.9 MCHC 30.9 L RDW 15.8 H Plt Count 105 L MPV 11.9 H Immature Gran % (Auto) 0.4 Neut % (Auto) 76.4 H Lymph % (Auto) 13.3 L [place] % (Auto) 7.9 Eos % (Auto) 1.6 Baso % (Auto) 0.4 Lymph # (Auto) 0.59 L [place] # (Auto) 0.4 Eos # (Auto) 0.1 Baso # (Auto) 0.0 Abs Immat Gran (auto) 0.02 Absolute Neuts (auto) 3.4 Absolute Nucleated RBC 0.000 Nucleated RBC % 0.0 % Immature Plt Fraction 5.6 Sodium 142 Potassium 2.9 L 3.5 Chloride 112 H Carbon Dioxide 23 Anion Gap 7 BUN 5 L Creatinine 0.47 L Estim Creat Clear Calc 110 Estimated GFR > 60 Glucose 110 Calcium 7.3 L Magnesium 1.9 Total Bilirubin 0.6 AST 28 ALT 12 Alkaline Phosphatase 134 H Total Protein 5.0 L Albumin 2.8 L Quality VTE Prophylaxis VTE prophylaxis: pharmacologic ordered (on apixaban)
--- NOTE | 2024-04-05 13:36 | PM.PNGS ---
Progress Note: A&P Assessment and Plan (1) Adynamic ileus: Code(s): K56.0 - Paralytic ileus Status: Acute Assessment and Plan: Abdominal exam still benign. Tolerating a heart healthy diet. Passing flatus but no BM yesterday or today. Will add a Duloclax suppository. Miralax daily as needed. Continue to hold narcotics, which he doesn't seem to need at this point. GI recommendations noted and plan to schedule an outpatient colonoscopy. (2) Proctocolitis: Code(s): K52.9 - Noninfective gastroenteritis and colitis, unspecified Status: Acute Assessment and Plan: Etiology unclear. GI following and planning eventual outpatient colonoscopy (3) Hypokalemia: Code(s): E87.6 - Hypokalemia Status: Acute Assessment and Plan: Continue to replace as needed. (4) Parkinsons disease: Code(s): G20 - Parkinson's disease Status: Acute (5) Thrombocytopenia: Code(s): D69.6 - Thrombocytopenia, unspecified Status: Acute (6) Chronic anticoagulation: Code(s): Z79.01 - emt intermediate (current) use of anticoagulants Status: Acute (7) Paroxysmal atrial fibrillation: Code(s): I48.0 - Paroxysmal atrial fibrillation Status: Acute (8) H/O heart valve replacement with bioprosthetic valve: Code(s): Z95.3 - Presence of xenogenic heart valve Status: Acute (9) Heart failure with reduced ejection fraction: Code(s): I50.20 - Unspecified systolic (congestive) heart failure Status: Acute Plan I have discussed the patient's case and plan of care with Dr. Levin. Subjective Subjective Date/Time Seen: 04/05/24 13:36 Interval history: Patient reports having some mild periumbilical pain today. He cannot recall when this started today. He did eat his breakfast and tolerated this well. He cannot recall if he got worse after breakfast. No nausea or vomiting. He feels slightly more bloated, but still is not distended like he was previously on admission. He is passing flatus. Denies a bowel movement today or yesterday. Exam Const: General: comfortable and no acute distress Orientation/consciousness: patient oriented x3 GI: Inspection: non-distended GI Palp: Yes Soft to palpation, No Tenderness to palpation present (GI), No Guarding due to palpation present (GI) and No Rebound tenderness present Auscultation: normal bowel sounds Objective Data Vital Signs Vital Signs: Vital Signs - 24 hr 04/04/24 14:00 04/04/24 16:00 04/04/24 20:00 Temperature 97.1 F L Pulse Rate 60 78 69 Respiratory Rate 18 16 Blood Pressure 125/76 Pulse Oximetry 100 100 Oxygen Delivery Room Air 04/04/24 20:00 04/04/24 20:15 04/04/24 21:26 Temperature 98.7 F Pulse Rate 72 78 69 Respiratory Rate 16 Blood Pressure 118/81 Pulse Oximetry 100 Oxygen Delivery 04/05/24 00:00 04/05/24 04:00 04/05/24 06:00 Temperature 98.3 F Pulse Rate 70 76 79 Respiratory Rate 16 Blood Pressure 122/64 Pulse Oximetry 100 Oxygen Delivery 04/05/24 09:06 04/05/24 10:55 Temperature Pulse Rate 69 Respiratory Rate Blood Pressure Pulse Oximetry Oxygen Delivery Room Air Intake/Output Intake/Output: Intake & Output 04/02/24 04/03/24 04/04/24 04/05/24 23:59 23:59 23:59 23:59 Intake Total 540 1120 Balance 540 1120 Meds/Results Medications: Active Medications Generic Name Dose Route Start Last Admin Trade Name Kevynq PRN Reason Stop Dose Admin Apixaban 5 mg 04/04/24 21:00 04/05/24 09:02 Apixaban 5 Mg Tablet PO 5 mg Q12HR YARA Administration Carvedilol 1.56 mg 04/04/24 21:00 04/05/24 09:06 Carvedilol 1.56 Mg Tablet PO 1.56 mg Q12H YARA Administration Famotidine 20 mg 04/05/24 09:00 04/05/24 09:02 Famotidine 20 Mg Tablet PO 20 mg DAILY YARA Administration Folic Acid 1 mg 04/05/24 09:00 04/05/24 09:02 Folic Acid 1 Mg Tablet PO 1 mg DAILY YARA Administration Furosemide 20 mg 04/05/24 09:00 04/05/24 09:02 Furosemide 20 Mg Tablet PO 20 mg QAM YARA Administration Hydrocortisone Acetate 25 mg 04/06/24 09:00 Hydrocortisone Acetate 25 Mg Suppository RECTAL DAILY YARA Hyoscyamine 0.125 mg 04/04/24 17:42 Hyoscyamine Sulfate 0.125 Mg Tablet SUBLINGUAL QID PRN dyspepsia Potassium Chloride/Dextrose/Sod Cl 1,000 mls @ 100 mls/hr 04/04/24 13:30 04/05/24 03:15 Kcl 40 Meq/D5ns IV CONT 100 mls/hr .Q10H YARA Administration Metoclopramide HCl 10 mg 04/04/24 17:50 04/05/24 09:02 Metoclopramide Hcl 10 Mg Tablet PO 10 mg BID YARA Administration Multivitamins/Calcium 1 tablet 04/05/24 09:00 04/05/24 09:01 Therapeutic Multivitamins/Minerals Tab (*Bkc) PO 1 tablet DAILY YARA Administration Neomycin/Polymyxin/Bacitracin 1 applic 04/05/24 09:00 04/05/24 12:29 Neomycin/Polymyxin/Bacitracin Ointment 15 Gm Tube TOPICAL Not Given DAILY YARA Oxycodone/Acetaminophen 1 tab 04/04/24 17:42 Oxycodone/Acetaminophen (*Crx) 10-325 Mg Tablet PO Q6H PRN Pain Rated 7-10 Polyethylene Glycol 17 gm 04/05/24 09:53 Polyethylene Glycol 3350 17 Gm Powd.Pack PO QAM PRN Constipation Potassium Chloride 40 meq 04/04/24 17:55 04/05/24 09:01 Potassium Chloride 20 Meq Packet (For Liquid) PO 40 meq BID YARA Administration Saccharomyces Boulardii 250 mg 04/04/24 17:00 04/05/24 12:29 Saccharomyces Boulardii 250 Mg Capsule PO 250 mg TID YARA Administration Sacubitril/Valsartan 1 tab 04/04/24 21:00 04/05/24 09:02 Sacubitril/Valsartan 24-26 Mg Tablet PO 1 tab Q12HR YARA Administration Simethicone 80 mg 04/04/24 21:00 04/05/24 12:29 Simethicone 80 Mg Tab.Chew PO 80 mg QID YARA Administration Radiology Results: ITS Impressions Abdomen X-Ray 04/04/24 08:32 IMPRESSION: 1. Persisting gaseous distention of the sigmoid colon, likely adynamic ileus. Labs Labs: Laboratory Results - last 24 hr 04/04/24 04/05/24 16:10 10:56 WBC 4.5 RBC 3.55 L Hgb 9.9 L Hct 32.0 L MCV 90.1 MCH 27.9 MCHC 30.9 L RDW 15.8 H Plt Count 105 L MPV 11.9 H Immature Gran % (Auto) 0.4 Neut % (Auto) 76.4 H Lymph % (Auto) 13.3 L [place] % (Auto) 7.9 Eos % (Auto) 1.6 Baso % (Auto) 0.4 Lymph # (Auto) 0.59 L [place] # (Auto) 0.4 Eos # (Auto) 0.1 Baso # (Auto) 0.0 Abs Immat Gran (auto) 0.02 Absolute Neuts (auto) 3.4 Absolute Nucleated RBC 0.000 Nucleated RBC % 0.0 % Immature Plt Fraction 5.6 Sodium 142 Potassium 2.9 L 3.5 Chloride 112 H Carbon Dioxide 23 Anion Gap 7 BUN 5 L Creatinine 0.47 L Estim Creat Clear Calc 110 Estimated GFR > 60 Glucose 110 Calcium 7.3 L Magnesium 1.9 Total Bilirubin 0.6 AST 28 ALT 12 Alkaline Phosphatase 134 H Total Protein 5.0 L Albumin 2.8 L
[2024-04-05] MEDS: BISACODYL 10 MG SUPPOSITORY RECTAL (13:49)
[2024-04-06] VITALS (11 sets, daily range): BP systolic 108–128; BP diastolic 58–74; PULSE 70–91; RESP 16; TEMP 36.4–36.7; O2SAT 95–99
[2024-04-06] MEDS: KCL 40 MEQ/D5/0.9% SOD CHL 1,000 ML 100 ML IV CONT (00:17)
[2024-04-06 07:54] LABS: Basophils Percent Auto 0.3 % (0.2-1.2); Eosinophils Absolute Auto 0.1 K/mm3 (0-0.3); Eosinophils Percent Auto 1.6 % (0-4.4); Hematocrit 29.9 % (42.0-52.0); Hemoglobin 9.6 g/dL (14.0-18.0); Immature Granulocyte Absolute 0.01 K/mm3 (0.00-0.031); Immature Granulocyte Percent A 0.3 % (0-0.5); Lymphocytes Absolute Auto 0.83 K/mm3 (0.9-3.2); Lymphocytes Percent Auto 22.4 % (18.3-44.2); Mean Corpuscular HGB Conc 32.1 g/dl (32-36); Mean Corpuscular Hemoglobin 28.8 pg (26-34); Mean Corpuscular Volume 89.8 fl (80-100); Mean Platelet Volume 12.2 fl (7.4-10.4); Monocytes Absolute Auto 0.3 K/mm3 (0.1-0.6); Monocytes Percent Auto 8.4 % (2.6-8.5); Neutrophils Absolute Auto 2.5 K/mm3 (1.3-6.7); Platelet Count Result 107 k/mm3 (150-375); Red Blood Count 3.33 M/mm3 (4.6-6.20); Red Cell Distribution Width 15.5 % (11.5-14.5); White Blood Count 3.7 K/mm3 (4.5-10.0)
[2024-04-06 08:14] LABS: Alanine Aminotransferase 10 U/L (6-50); Albumin Level 2.5 g/dL (3.5-5.1); Alkaline Phosphatase 125 U/L (38-126); Anion Gap 4 mmol/L (4-12); Aspartate Amino Transferase 24 U/L (17-59); Bilirubin,Total 0.6 mg/dL (0.2-1.3); Blood Urea Nitrogen 2 mg/dL (9-20); Calcium 7.1 mg/dL (8.4-10.2); Carbon Dioxide 23 mmol/L (22-30); Chloride 112 mmol/L (98-107); Estimated CRCL calculation 106 ml/min; Estimated Glomerular Filt Rate > 60; Glucose 111 mg/dL (65-110); Magnesium 1.6 mg/dL (1.6-2.3); Potassium 3.4 mmol/L (3.4-5.0); Sodium 139 mmol/L (137-145)
[2024-04-06 08:32] LABS: Glucose Point of Care 126 mg/dl (65-105)
[2024-04-06] MEDS: carvediloL 1.56 MG TABLET PO ×2 (09:10→21:06)
[2024-04-06] MEDS: SIMETHICONE 80 MG TAB.CHEW PO ×4 (09:10→21:06)
[2024-04-06] MEDS: SACUBITRIL/VALSARTAN 24-26 MG TABLET 1 TAB PO ×2 (09:10→21:06)
[2024-04-06] MEDS: FAMOTIDINE 20 MG TABLET PO (09:10)
[2024-04-06] MEDS: POTASSIUM CHLORIDE 20 MEQ PACKET (FOR LIQUID) 40 MEQ PO ×2 (09:10→17:32)
[2024-04-06] MEDS: THERAPEUTIC MULTIVITAMINS/MINERALS TAB (*BKC) 1 TABLET PO (09:11)
[2024-04-06] MEDS: METOCLOPRAMIDE HCL 10 MG TABLET PO ×2 (09:11→17:32)
[2024-04-06] MEDS: SACCHAROMYCES BOULARDII 250 MG CAPSULE PO ×3 (09:11→17:32)
[2024-04-06] MEDS: APIXABAN 5 MG TABLET PO ×2 (09:11→21:06)
[2024-04-06] MEDS: FUROSEMIDE 20 MG TABLET PO (09:11)
[2024-04-06] MEDS: FOLIC ACID 1 MG TABLET PO (09:11)
[2024-04-06] MEDS: HYDROCORTISONE ACETATE 25 MG SUPPOSITORY RECTAL (09:12)
--- NOTE | 2024-04-06 11:17 | P.PNIM_ITS ---
Progress Note: A&P Assessment and Plan (1) Ileus: Code(s): K56.7 - Ileus, unspecified Status: Acute Assessment and Plan: * Reports large bowel movement 2/10 after suppository * General surgery was following and has now signed off, appreciate recommendations. Added a Dulcolax suppository yesterday. Miralax daily as needed. Hold Narcotics. * KUB today still shows adynamic ileus however his abdomen is less distended and he denies any nausea and vomiting * Tolerating a heart healthy diet. * GI consulted for further recommendations, plan Colonoscopy in 6 weeks as an outpatient. (2) Proctocolitis: Code(s): K52.9 - Noninfective gastroenteritis and colitis, unspecified Status: Acute Assessment and Plan: * GI consulted, appreciate recommendations. * Plan colonoscopy in 6 weeks outpatient. * Liver fibrosis panel ordered. * Hydrocortisone 25 mg rectal daily * Miralax 17 gram PO daily PRN. (3) Hypokalemia: Code(s): E87.6 - Hypokalemia Status: Acute Assessment and Plan: * Potassium 2.6>2.9>3.5>3.4 * Potassium Chloride 40 meq PO BID * continue to trend (4) Paroxysmal atrial fibrillation: Code(s): I48.0 - Paroxysmal atrial fibrillation Status: Acute Assessment and Plan: * continue Eliquis and Coreg (5) Heart failure with reduced ejection fraction: Code(s): I50.20 - Unspecified systolic (congestive) heart failure Status: Acute Assessment and Plan: * Continue Entresto, carvedilol, Lasix (6) Weakness: Code(s): R53.1 - Weakness Status: Acute Assessment and Plan: * PT and OT * Case management following for additional rehab needs Subjective Date/time seen: 04/06/24 11:17 Interval history: Patient sitting up in bed smiling. Patient reports feeling better today and that he had a bowel movement this morning. Patient denies chest pain, palpitations, headache, dizziness, nausea, or vomiting. Review of Systems Review of Systems: All systems reviewed & are unremarkable except as noted in HPI and below Exam Const: General: comfortable and no acute distress Resp: Effort & Inspection: normal respiratory effort Auscultation: clear to auscultation bilaterally Cardio: Other: Paced 78 GI: GI Palp: Yes Soft to palpation Auscultation: normal bowel sounds Skin: Other: Sacral wound, bilateral heel wounds with dressing intact. See wound care chaim mmendations. Neuro: Speech: normal speech Extrem: General: no pedal edema Psych: Mental Status: mental status grossly normal Affect: normal affect Objective Data Vital Signs Vital Signs: Vital Signs - 24 hr 04/05/24 12:00 04/05/24 14:00 04/05/24 16:00 Temperature 97.7 F Pulse Rate 77 97 75 Respiratory Rate 20 Blood Pressure 107/62 Pulse Oximetry 100 Oxygen Delivery 04/05/24 20:00 04/05/24 20:00 04/05/24 20:46 Temperature Pulse Rate 69 75 69 Respiratory Rate 20 Blood Pressure Pulse Oximetry 100 Oxygen Delivery Room Air 04/05/24 22:00 04/06/24 00:00 04/06/24 04:00 Temperature 97.7 F Pulse Rate 69 78 77 Respiratory Rate 16 Blood Pressure 123/60 Pulse Oximetry 100 Oxygen Delivery 04/06/24 06:00 04/06/24 09:10 04/06/24 10:02 Temperature 98.0 F Pulse Rate 74 73 Respiratory Rate 16 Blood Pressure 108/58 L Pulse Oximetry 95 Oxygen Delivery Room Air Intake/Output Intake/Output: Intake & Output 04/03/24 04/04/24 04/05/24 04/06/24 23:59 23:59 23:59 23:59 Intake Total 540 3634 440 Output Total 800 600 Balance 540 2834 -160 Meds/Results Medications: Active Medications Generic Name Dose Route Start Last Admin Trade Name Freq PRN Reason Stop Dose Admin Apixaban 5 mg 04/04/24 21:00 04/06/24 09:11 Apixaban 5 Mg Tablet PO 5 mg Q12HR YARA Administration Carvedilol 1.56 mg 04/04/24 21:00 04/06/24 09:10 Carvedilol 1.56 Mg Tablet PO 1.56 mg Q12H YARA Administration Famotidine 20 mg 04/05/24 09:00 04/06/24 09:10 Famotidine 20 Mg Tablet PO 20 mg DAILY YARA Administration Folic Acid 1 mg 04/05/24 09:00 04/06/24 09:11 Folic Acid 1 Mg Tablet PO 1 mg DAILY YARA Administration Furosemide 20 mg 04/05/24 09:00 04/06/24 09:11 Furosemide 20 Mg Tablet PO 20 mg QAM YARA Administration Hydrocortisone Acetate 25 mg 04/06/24 09:00 04/06/24 09:12 Hydrocortisone Acetate 25 Mg Suppository RECTAL 25 mg DAILY YARA Administration Hyoscyamine 0.125 mg 04/04/24 17:42 Hyoscyamine Sulfate 0.125 Mg Tablet SUBLINGUAL QID PRN dyspepsia Potassium Chloride/Dextrose/Sod Cl 1,000 mls @ 100 mls/hr 04/04/24 13:30 04/06/24 00:17 Kcl 40 Meq/D5ns IV CONT 100 mls/hr .Q10H YARA Administration Metoclopramide HCl 10 mg 04/04/24 17:50 04/06/24 09:11 Metoclopramide Hcl 10 Mg Tablet PO 10 mg BID YARA Administration Multivitamins/Calcium 1 tablet 04/05/24 09:00 04/06/24 09:11 Therapeutic Multivitamins/Minerals Tab (*Bkc) PO 1 tablet DAILY YARA Administration Neomycin/Polymyxin/Bacitracin 1 applic 04/05/24 09:00 04/05/24 12:29 Neomycin/Polymyxin/Bacitracin Ointment 15 Gm Tube TOPICAL Not Given DAILY [facility] Oxycodone/Acetaminophen 1 tab 04/04/24 17:42 Oxycodone/Acetaminophen (*Crx) 10-325 Mg Tablet PO Q6H PRN Pain Rated 7-10 Polyethylene Glycol 17 gm 04/05/24 09:53 Polyethylene Glycol 3350 17 Gm Powd.Pack PO QAM PRN Constipation Potassium Chloride 40 meq 04/04/24 17:55 04/06/24 09:10 Potassium Chloride 20 Meq Packet (For Liquid) PO 40 meq BID YARA Administration Saccharomyces Boulardii 250 mg 04/04/24 17:00 04/06/24 09:11 Saccharomyces Boulardii 250 Mg Capsule PO 250 mg TID YARA Administration Sacubitril/Valsartan 1 tab 04/04/24 21:00 04/06/24 09:10 Sacubitril/Valsartan 24-26 Mg Tablet PO 1 tab Q12HR YARA Administration Simethicone 80 mg 04/04/24 21:00 04/06/24 09:10 Simethicone 80 Mg Tab.Chew PO 80 mg QID YARA Administration Radiology Results: ITS Impressions Abdomen X-Ray 04/04/24 08:32 IMPRESSION: 1. Persisting gaseous distention of the sigmoid colon, likely adynamic ileus. Labs Labs: Laboratory Results - last 24 hr 04/05/24 04/06/24 04/06/24 10:56 07:24 08:20 WBC 4.5 3.7 L RBC 3.55 L 3.33 L Hgb 9.9 L 9.6 L Hct 32.0 L 29.9 L MCV 90.1 89.8 MCH 27.9 28.8 MCHC 30.9 L 32.1 RDW 15.8 H 15.5 H Plt Count 105 L 107 L MPV 11.9 H 12.2 H Immature Gran % (Auto) 0.4 0.3 Neut % (Auto) 76.4 H 67.0 Lymph % (Auto) 13.3 L 22.4 [place] % (Auto) 7.9 8.4 Eos % (Auto) 1.6 1.6 Baso % (Auto) 0.4 0.3 Lymph # (Auto) 0.59 L 0.83 L [place] # (Auto) 0.4 0.3 Eos # (Auto) 0.1 0.1 Baso # (Auto) 0.0 0.0 Abs Immat Gran (auto) 0.02 0.01 Absolute Neuts (auto) 3.4 2.5 Absolute Nucleated RBC 0.000 0.000 Nucleated RBC % 0.0 0.0 % Immature Plt Fraction 5.6 Sodium 142 139 Potassium 3.5 3.4 Chloride 112 H 112 H Carbon Dioxide 23 23 Anion Gap 7 4 BUN 5 L 2 L Creatinine 0.47 L 0.49 L Estim Creat Clear Calc 110 106 Estimated GFR > 60 > 60 Glucose 110 111 H POC Capillary Glucose 126 H Calcium 7.3 L 7.1 L Magnesium 1.9 1.6 Total Bilirubin 0.6 0.6 AST 28 24 ALT 12 10 Alkaline Phosphatase 134 H 125 Total Protein 5.0 L 5.0 L Albumin 2.8 L 2.5 L Quality VTE Prophylaxis VTE prophylaxis: pharmacologic ordered (on apixaban)
[2024-04-06] MEDS: NEOMYCIN/POLYMYXIN/BACITRACIN OINTMENT 15 GM TUBE 1 APPLIC TOPICAL (12:19)
--- NOTE | 2024-04-06 14:11 | P.PNGI_ITS ---
Progress Note: A&P Assessment and Plan (1) Adynamic ileus: Code(s): K56.0 - Paralytic ileus Status: Acute Assessment and Plan: clinically improved eating now surgery signed off (2) Proctocolitis: Code(s): K52.9 - Noninfective gastroenteritis and colitis, unspecified Status: Acute Assessment and Plan: we can do sigmoidoscopy as outpatient says that he is too weak right now and she is not even sure if he would be willing to undergo scope as outpatient plan is to follow-up in few weeks in office to discuss about it (3) Cardiomyopathy: Code(s): I42.9 - Cardiomyopathy, unspecified Status: Acute (4) Thrombocytopenia: Code(s): D69.6 - Thrombocytopenia, unspecified Status: Acute Assessment and Plan: stable ? from previous alcohol use Subjective Date/time seen: 04/06/24 14:11 Interval history: resting, at bedside he has been eating and + BS comfortable Review of Systems Review of Systems: All systems reviewed & are unremarkable except as noted in HPI and below Exam Const: General: comfortable and no acute distress Orientation/consciousness: patient oriented x3 HENMT: Face/Nose/Sinus: Normal nares present Eyes: Sclera: sclerae normal Neck: Neck: supple Resp: Effort & Inspection: normal respiratory effort Cardio: Rate: regular rate GI: Inspection: non-distended GI Palp: Yes Soft to palpation, No Tenderness to palpation present (GI), No Guarding due to palpation present (GI) and No Rebound tenderness present Auscultation: normal bowel sounds Skin: General skin exam: normal color Neuro: Speech: normal speech Extrem: General: normal to inspection Psych: Mental Status: mental status grossly normal Objective Data Vital Signs Vital Signs: Vital Signs - 24 hr 04/05/24 16:00 04/05/24 20:00 04/05/24 20:00 Temperature Pulse Rate 75 69 75 Respiratory Rate 20 Blood Pressure Pulse Oximetry 100 Oxygen Delivery Room Air 04/05/24 20:46 04/05/24 22:00 04/06/24 00:00 Temperature 97.7 F Pulse Rate 69 69 78 Respiratory Rate 16 Blood Pressure 123/60 Pulse Oximetry 100 Oxygen Delivery 04/06/24 04:00 04/06/24 06:00 04/06/24 09:10 Temperature 98.0 F Pulse Rate 77 74 73 Respiratory Rate 16 Blood Pressure 108/58 L Pulse Oximetry 95 Oxygen Delivery 04/06/24 10:02 Temperature Pulse Rate Respiratory Rate Blood Pressure Pulse Oximetry Oxygen Delivery Room Air Intake/Output Intake/Output: Intake & Output 04/03/24 04/04/24 04/05/24 04/06/24 23:59 23:59 23:59 23:59 Intake Total 540 3634 440 Output Total 800 600 Balance 540 2834 -160 Meds/Results Medications: Active Medications Generic Name Dose Route Start Last Admin Trade Name Freq PRN Reason Stop Dose Admin Apixaban 5 mg 04/04/24 21:00 04/06/24 09:11 Apixaban 5 Mg Tablet PO 5 mg Q12HR YARA Administration Carvedilol 1.56 mg 04/04/24 21:00 04/06/24 09:10 Carvedilol 1.56 Mg Tablet PO 1.56 mg Q12H YARA Administration Famotidine 20 mg 04/05/24 09:00 04/06/24 09:10 Famotidine 20 Mg Tablet PO 20 mg DAILY YARA Administration Folic Acid 1 mg 04/05/24 09:00 04/06/24 09:11 Folic Acid 1 Mg Tablet PO 1 mg DAILY YARA Administration Furosemide 20 mg 04/05/24 09:00 04/06/24 09:11 Furosemide 20 Mg Tablet PO 20 mg QAM YARA Administration Hydrocortisone Acetate 25 mg 04/06/24 09:00 04/06/24 09:12 Hydrocortisone Acetate 25 Mg Suppository RECTAL 25 mg DAILY YARA Administration Hyoscyamine 0.125 mg 04/04/24 17:42 Hyoscyamine Sulfate 0.125 Mg Tablet SUBLINGUAL QID PRN dyspepsia Potassium Chloride/Dextrose/Sod Cl 1,000 mls @ 100 mls/hr 04/04/24 13:30 04/06/24 00:17 Kcl 40 Meq/D5ns IV CONT 100 mls/hr .Q10H YARA Administration Metoclopramide HCl 10 mg 04/04/24 17:50 04/06/24 09:11 Metoclopramide Hcl 10 Mg Tablet PO 10 mg BID YARA Administration Multivitamins/Calcium 1 tablet 04/05/24 09:00 04/06/24 09:11 Therapeutic Multivitamins/Minerals Tab (*Bkc) PO 1 tablet DAILY YARA Administration Neomycin/Polymyxin/Bacitracin 1 applic 04/05/24 09:00 04/06/24 12:19 Neomycin/Polymyxin/Bacitracin Ointment 15 Gm Tube TOPICAL 1 applic DAILY YARA Administration Oxycodone/Acetaminophen 1 tab 04/04/24 17:42 Oxycodone/Acetaminophen (*Crx) 10-325 Mg Tablet PO Q6H PRN Pain Rated 7-10 Polyethylene Glycol 17 gm 04/05/24 09:53 Polyethylene Glycol 3350 17 Gm Powd.Pack PO QAM PRN Constipation Potassium Chloride 40 meq 04/04/24 17:55 04/06/24 09:10 Potassium Chloride 20 Meq Packet (For Liquid) PO 40 meq BID YARA Administration Saccharomyces Boulardii 250 mg 04/04/24 17:00 04/06/24 12:19 Saccharomyces Boulardii 250 Mg Capsule PO 250 mg TID YARA Administration Sacubitril/Valsartan 1 tab 04/04/24 21:00 04/06/24 09:10 Sacubitril/Valsartan 24-26 Mg Tablet PO 1 tab Q12HR YARA Administration Simethicone 80 mg 04/04/24 21:00 04/06/24 12:19 Simethicone 80 Mg Tab.Chew PO 80 mg QID YARA Administration Radiology Results: ITS Impressions Abdomen X-Ray 04/04/24 08:32 IMPRESSION: 1. Persisting gaseous distention of the sigmoid colon, likely adynamic ileus. Labs Labs: Laboratory Results - last 24 hr 04/06/24 04/06/24 07:24 08:20 WBC 3.7 L RBC 3.33 L Hgb 9.6 L Hct 29.9 L MCV 89.8 MCH 28.8 MCHC 32.1 RDW 15.5 H Plt Count 107 L MPV 12.2 H Immature Gran % (Auto) 0.3 Neut % (Auto) 67.0 Lymph % (Auto) 22.4 [place] % (Auto) 8.4 Eos % (Auto) 1.6 Baso % (Auto) 0.3 Lymph # (Auto) 0.[address] [place] # (Auto) 0.3 Eos # (Auto) 0.1 Baso # (Auto) 0.0 Abs Immat Gran (auto) 0.01 Absolute Neuts (auto) 2.5 Absolute Nucleated RBC 0.000 Nucleated RBC % 0.0 Sodium 139 Potassium 3.4 Chloride 112 H Carbon Dioxide 23 Anion Gap 4 BUN 2 L Creatinine 0.49 L Estim Creat Clear Calc 106 Estimated GFR > 60 Glucose 111 H POC Capillary Glucose 126 H Calcium 7.1 L Magnesium 1.6 Total Bilirubin 0.6 AST 24 ALT 10 Alkaline Phosphatase 125 Total Protein 5.0 L Albumin 2.5 L
[2024-04-07] VITALS (10 sets, daily range): BP systolic 98–119; BP diastolic 58–62; PULSE 67–85; RESP 16–20; TEMP 36.2–37.2; O2SAT 97–99
[2024-04-07 06:26] LABS: Basophils Percent Auto 0.5 % (0.2-1.2); Eosinophils Absolute Auto 0.1 K/mm3 (0-0.3); Hematocrit 32.3 % (42.0-52.0); Hemoglobin 10.2 g/dL (14.0-18.0); Immature Granulocyte Absolute 0.02 K/mm3 (0.00-0.031); Immature Granulocyte Percent A 0.5 % (0-0.5); Immature Platelet Fraction Pct 8.1 % (0.9-11.2); Lymphocytes Absolute Auto 0.82 K/mm3 (0.9-3.2); Lymphocytes Percent Auto 20.3 % (18.3-44.2); Mean Corpuscular HGB Conc 31.6 g/dl (32-36); Mean Corpuscular Volume 88.7 fl (80-100); Monocytes Absolute Auto 0.4 K/mm3 (0.1-0.6); Monocytes Percent Auto 8.9 % (2.6-8.5); Neutrophils Absolute Auto 2.7 K/mm3 (1.3-6.7); Neutrophils Percent Auto 67.8 % (45.5-73.1); Platelet Count Result 92 k/mm3 (150-375); Red Blood Count 3.64 M/mm3 (4.6-6.20); Red Cell Distribution Width 14.9 % (11.5-14.5)
[2024-04-07 06:40] LABS: Alanine Aminotransferase 10 U/L (6-50); Albumin Level 2.7 g/dL (3.5-5.1); Alkaline Phosphatase 127 U/L (38-126); Anion Gap 6 mmol/L (4-12); Aspartate Amino Transferase 27 U/L (17-59); Bilirubin,Total 0.7 mg/dL (0.2-1.3); Blood Urea Nitrogen 3 mg/dL (9-20); Calcium 7.8 mg/dL (8.4-10.2); Carbon Dioxide 24 mmol/L (22-30); Chloride 106 mmol/L (98-107); Estimated CRCL calculation 106 ml/min; Estimated Glomerular Filt Rate > 60; Glucose 97 mg/dL (65-110); Magnesium 1.6 mg/dL (1.6-2.3); Sodium 136 mmol/L (137-145)
[2024-04-07 07:28] LABS: Crenated RBC 1+; Ovalocytes 1+; Platelet Estimate Decreased (Adequate); Schistocytes None Seen
[2024-04-07] MEDS: HYDROCORTISONE ACETATE 25 MG SUPPOSITORY RECTAL (09:25)
[2024-04-07] MEDS: POTASSIUM CHLORIDE 20 MEQ PACKET (FOR LIQUID) 40 MEQ PO ×2 (09:28→16:38)
[2024-04-07] MEDS: carvediloL 1.56 MG TABLET PO ×2 (09:28→20:12)
[2024-04-07] MEDS: FOLIC ACID 1 MG TABLET PO (09:29)
[2024-04-07] MEDS: THERAPEUTIC MULTIVITAMINS/MINERALS TAB (*BKC) 1 TABLET PO (09:29)
[2024-04-07] MEDS: SIMETHICONE 80 MG TAB.CHEW PO ×4 (09:29→20:12)
[2024-04-07] MEDS: APIXABAN 5 MG TABLET PO ×2 (09:29→20:12)
[2024-04-07] MEDS: METOCLOPRAMIDE HCL 10 MG TABLET PO ×2 (09:29→16:38)
[2024-04-07] MEDS: SACCHAROMYCES BOULARDII 250 MG CAPSULE PO ×3 (09:29→16:38)
[2024-04-07] MEDS: FAMOTIDINE 20 MG TABLET PO (09:29)
[2024-04-07] MEDS: FUROSEMIDE 20 MG TABLET PO (09:29)
[2024-04-07] MEDS: SACUBITRIL/VALSARTAN 24-26 MG TABLET 1 TAB PO ×2 (09:29→20:12)
[2024-04-07] MEDS: POTASSIUM CHLORIDE INJ 40 MEQ in SODIUM CHLORIDE 0.9% IV 500 ML 130 MEQ IVPB (09:30)
[2024-04-07] MEDS: NEOMYCIN/POLYMYXIN/BACITRACIN OINTMENT 15 GM TUBE 1 APPLIC TOPICAL (09:43)
--- NOTE | 2024-04-07 10:46 | PCNFU ---
Addendum entered by Dionne Ervin, RD, LDN 04/07/24 10:58: Nutrition Follow-Up Complete: Inadequate energy intake related to diet order as evidenced by NPO status - Resolved Increased nutrient needs related to altered skin integrity as evidenced by multiple areas of pressure injuries Meet estimated needs - Progressing. Diet advanced and intakes 50-100%. Goal: Pt current nutrition is Heart healthy diet. Leonel BID for wound healing support (90 kcal, 2.5 g protein, arginine and glutamine). Nutrition recommendation: Oral nutrition supplements: Ensure Enlive BID (350 kcal, 20 g protein) Last recorded weight is 80.4 kg. Bowel Motility: +1 BM 04/06/24 Labs Reviewed: Hgb 10.2, Hct 32.3., Alb 2.7, Na 136, BUN 3.0, BUN 3, Cre 0.49 Meds Noted: Lasix, Reglan, Pepcid, Folic acid, florastor Skin: Stage III R buttock; R heel unstageable; L heel deep tissue Additional Notes: Ileus improved at pt eating better. Tolerating diet. Leonel BID is ordered. Adding Enlive for intakes. Monitor diet orders, intake, wt, labs, skin. Follow up in 3 days. Original Note: Nutrition Follow-Up Complete: Inadequate energy intake related to diet order as evidenced by NPO status - Resolved Increased nutrient needs related to altered skin integrity as evidenced by multiple areas of pressure injuries Meet estimated needs - Progressing. Diet advanced and intakes 50-100%. Goal: Pt current nutrition is Heart healthy diet. Leonel BID for wound healing support (90 kcal, 2.5 g protein, arginine and glutamine). Nutrition recommendation: Last recorded weight is 80.4 kg. Bowel Motility: Labs Reviewed: Meds Noted: Skin: Additional Notes: Monitor diet orders, intake, wt, labs, skin. Follow up in 3 days.
--- NOTE | 2024-04-07 12:16 | P.PNIM_ITS ---
Progress Note: A&P Assessment and Plan (1) Ileus: Code(s): K56.7 - Ileus, unspecified Status: Acute Assessment and Plan: * Reports BM this morning. * General surgery was following and has now signed off, appreciate recommendations. Miralax daily as needed. Hold Narcotics. * Tolerating a heart healthy diet. * GI consulted for further recommendations, plan Colonoscopy in 6 weeks as an outpatient. (2) Proctocolitis: Code(s): K52.9 - Noninfective gastroenteritis and colitis, unspecified Status: Acute Assessment and Plan: * GI consulted, appreciate recommendations. * Plan colonoscopy in 6 weeks outpatient. * Liver fibrosis panel ordered. * Hydrocortisone 25 mg rectal daily * Miralax 17 gram PO daily PRN. (3) Hypokalemia: Code(s): E87.6 - Hypokalemia Status: Acute Assessment and Plan: * Potassium 2.6>2.9>3.5>3.4>3.0 * Add Potassium Chloride 40 meq IVPB x1. * Potassium Chloride 40 meq PO BID * continue to trend (4) Paroxysmal atrial fibrillation: Code(s): I48.0 - Paroxysmal atrial fibrillation Status: Acute Assessment and Plan: * continue Eliquis and Coreg (5) Heart failure with reduced ejection fraction: Code(s): I50.20 - Unspecified systolic (congestive) heart failure Status: Acute Assessment and Plan: * Continue Entresto, carvedilol, Lasix (6) Weakness: Code(s): R53.1 - Weakness Status: Acute Assessment and Plan: * PT and OT * Case management following for additional rehab needs Subjective Date/time seen: 04/07/24 12:16 Interval history: Patient sitting up in bed smiling. is at bedside. Patient reports feeling better today and that he had a bowel movement this morning. Patient denies chest pain, palpitations, headache, dizziness, nausea, or vomiting. Review of Systems Review of Systems: All systems reviewed & are unremarkable except as noted in HPI and below Exam Const: General: comfortable and no acute distress Resp: Effort & Inspection: normal respiratory effort Auscultation: clear to auscultation bilaterally Cardio: Rate: regular rate Rhythm: regular rhythm Other: Paced 74. GI: GI Palp: Yes Soft to palpation Auscultation: normal bowel sounds Skin: Other: acral wound, bilateral heel wounds with dressing intact. See wound care recommendations. Neuro: Speech: normal speech Extrem: General: no pedal edema Psych: Mental Status: mental status grossly normal Affect: normal affect Objective Data Vital Signs Vital Signs: Vital Signs - 24 hr 04/06/24 14:53 04/06/24 16:00 04/06/24 20:00 Temperature 97.8 F Pulse Rate 80 91 75 Respiratory Rate 16 Blood Pressure 128/74 Pulse Oximetry 98 Oxygen Delivery 04/06/24 20:55 04/06/24 21:06 04/06/24 21:36 Temperature 97.6 F Pulse Rate 70 70 Respiratory Rate 16 Blood Pressure 127/61 Pulse Oximetry 99 Oxygen Delivery Room Air 04/07/24 00:00 04/07/24 04:00 04/07/24 05:51 Temperature 98.0 F Pulse Rate 77 82 80 Respiratory Rate 20 Blood Pressure 117/61 Pulse Oximetry 97 Oxygen Delivery 04/07/24 08:00 04/07/24 09:28 Temperature Pulse Rate 78 Respiratory Rate Blood Pressure Pulse Oximetry Oxygen Delivery Room Air Intake/Output Intake/Output: Intake & Output 04/04/24 04/05/24 04/06/24 04/07/24 23:59 23:59 23:59 23:59 Intake Total 540 3634 680 250 Output Total 800 1100 900 Balance 540 2835 -420 -650 Meds/Results Medications: Active Medications Generic Name Dose Route Start Last Admin Trade Name Freq PRN Reason Stop Dose Admin Apixaban 5 mg 04/04/24 21:00 04/07/24 09:29 Apixaban 5 Mg Tablet PO 5 mg Q12HR YARA Administration Carvedilol 1.56 mg 04/04/24 21:00 04/07/24 09:28 Carvedilol 1.56 Mg Tablet PO 1.56 mg Q12H YARA Administration Famotidine 20 mg 04/05/24 09:00 04/07/24 09:29 Famotidine 20 Mg Tablet PO 20 mg DAILY YARA Administration Folic Acid 1 mg 04/05/24 09:00 04/07/24 09:29 Folic Acid 1 Mg Tablet PO 1 mg DAILY YARA Administration Furosemide 20 mg 04/05/24 09:00 04/07/24 09:29 Furosemide 20 Mg Tablet PO 20 mg QAM YARA Administration Hydrocortisone Acetate 25 mg 04/06/24 09:00 04/07/24 09:25 Hydrocortisone Acetate 25 Mg Suppository RECTAL 25 mg DAILY YARA Administration Hyoscyamine 0.125 mg 04/04/24 17:42 Hyoscyamine Sulfate 0.125 Mg Tablet SUBLINGUAL QID PRN dyspepsia Metoclopramide HCl 10 mg 04/04/24 17:50 04/07/24 09:29 Metoclopramide Hcl 10 Mg Tablet PO 10 mg BID YARA Administration Multivitamins/Calcium 1 tablet 04/05/24 09:00 04/07/24 09:29 Therapeutic Multivitamins/Minerals Tab (*Bkc) PO 1 tablet DAILY YARA Administration Neomycin/Polymyxin/Bacitracin 1 applic 04/05/24 09:00 04/07/24 09:43 Neomycin/Polymyxin/Bacitracin Ointment 15 Gm Tube TOPICAL 1 applic DAILY YARA Administration Oxycodone/Acetaminophen 1 tab 04/04/24 17:42 Oxycodone/Acetaminophen (*Crx) 10-325 Mg Tablet PO Q6H PRN Pain Rated 7-10 Polyethylene Glycol 17 gm 04/05/24 09:53 Polyethylene Glycol 3350 17 Gm Powd.Pack PO QAM PRN Constipation Potassium Chloride 40 meq 04/04/24 17:55 04/07/24 09:28 Potassium Chloride 20 Meq Packet (For Liquid) PO 40 meq BID YARA Administration Saccharomyces Boulardii 250 mg 04/04/24 17:00 04/07/24 09:29 Saccharomyces Boulardii 250 Mg Capsule PO 250 mg TID YARA Administration Sacubitril/Valsartan 1 tab 04/04/24 21:00 04/07/24 09:29 Sacubitril/Valsartan 24-26 Mg Tablet PO 1 tab Q12HR YARA Administration Simethicone 80 mg 04/04/24 21:00 04/07/24 09:29 Simethicone 80 Mg Tab.Chew PO 80 mg QID YARA Administration Radiology Results: ITS Impressions Abdomen X-Ray 04/04/24 08:32 IMPRESSION: 1. Persisting gaseous distention of the sigmoid colon, likely adynamic ileus. Labs Labs: Laboratory Results - last 24 hr 04/07/24 05:52 WBC 4.0 L RBC 3.64 L Hgb 10.2 L Hct 32.3 L MCV 88.7 MCH 28.0 MCHC 31.6 L RDW 14.9 H Plt Count 92 L MPV 13.0 H Immature Gran % (Auto) 0.5 Neut % (Auto) 67.8 Lymph % (Auto) 20.3 [place] % (Auto) 8.9 H Eos % (Auto) 2.0 Baso % (Auto) 0.5 Lymph # (Auto) 0.82 L [place] # (Auto) 0.4 Eos # (Auto) 0.1 Baso # (Auto) 0.0 Abs Immat Gran (auto) 0.02 Absolute Neuts (auto) 2.7 Absolute Nucleated RBC 0.000 Nucleated RBC % 0.0 Platelet Estimate Decreased % Immature Plt Fraction 8.1 Ovalocytes 1+ Crenated Cell 1+ Schistocytes None seen Sodium 136 L Potassium 3.0 L Chloride 106 Carbon Dioxide 24 Anion Gap 6 BUN 3 L Creatinine 0.49 L Estim Creat Clear Calc 106 Estimated GFR > 60 Glucose 97 Calcium 7.8 L Magnesium 1.6 Total Bilirubin 0.7 AST 27 ALT 10 Alkaline Phosphatase 127 H Total Protein 5.0 L Albumin 2.7 L Quality VTE Prophylaxis VTE prophylaxis: pharmacologic ordered (on apixaban)
[2024-04-07] MEDS: MAGNESIUM SULF 2 GM/WATER 50ML 2 GM/50 ML BAG IVPB (14:38)
[2024-04-08] VITALS (10 sets, daily range): BP systolic 112–114; BP diastolic 55–67; PULSE 64–82; RESP 16–18; TEMP 36.2–36.8; O2SAT 97
[2024-04-08 07:18] LABS: Basophils Percent Auto 0.5 % (0.2-1.2); Eosinophils Absolute Auto 0.1 K/mm3 (0-0.3); Eosinophils Percent Auto 1.5 % (0-4.4); Hematocrit 30.7 % (42.0-52.0); Hemoglobin 9.5 g/dL (14.0-18.0); Immature Granulocyte Absolute 0.01 K/mm3 (0.00-0.031); Immature Granulocyte Percent A 0.3 % (0-0.5); Lymphocytes Absolute Auto 0.76 K/mm3 (0.9-3.2); Lymphocytes Percent Auto 19.5 % (18.3-44.2); Mean Corpuscular HGB Conc 30.9 g/dl (32-36); Mean Corpuscular Hemoglobin 27.4 pg (26-34); Mean Corpuscular Volume 88.5 fl (80-100); Mean Platelet Volume 12.9 fl (7.4-10.4); Monocytes Absolute Auto 0.4 K/mm3 (0.1-0.6); Monocytes Percent Auto 11.3 % (2.6-8.5); Neutrophils Absolute Auto 2.6 K/mm3 (1.3-6.7); Neutrophils Percent Auto 66.9 % (45.5-73.1); Platelet Count Result 105 k/mm3 (150-375); Red Blood Count 3.47 M/mm3 (4.6-6.20); White Blood Count 3.9 K/mm3 (4.5-10.0)
[2024-04-08 07:35] LABS: Alanine Aminotransferase 13 U/L (6-50); Albumin Level 2.7 g/dL (3.5-5.1); Alkaline Phosphatase 124 U/L (38-126); Anion Gap 8 mmol/L (4-12); Aspartate Amino Transferase 31 U/L (17-59); Bilirubin,Total 0.6 mg/dL (0.2-1.3); Blood Urea Nitrogen 6 mg/dL (9-20); Calcium 8.3 mg/dL (8.4-10.2); Carbon Dioxide 24 mmol/L (22-30); Chloride 105 mmol/L (98-107); Estimated CRCL calculation 102 ml/min; Estimated Glomerular Filt Rate > 60; Glucose 99 mg/dL (65-110); Magnesium 1.8 mg/dL (1.6-2.3); Potassium 3.4 mmol/L (3.4-5.0); Sodium 137 mmol/L (137-145)
[2024-04-08] MEDS: APIXABAN 5 MG TABLET PO ×2 (09:26→20:19)
[2024-04-08] MEDS: POTASSIUM CHLORIDE 20 MEQ PACKET (FOR LIQUID) 40 MEQ PO ×2 (09:26→16:57)
[2024-04-08] MEDS: THERAPEUTIC MULTIVITAMINS/MINERALS TAB (*BKC) 1 TABLET PO (09:26)
[2024-04-08] MEDS: FOLIC ACID 1 MG TABLET PO (09:26)
[2024-04-08] MEDS: METOCLOPRAMIDE HCL 10 MG TABLET PO ×2 (09:26→16:57)
[2024-04-08] MEDS: FAMOTIDINE 20 MG TABLET PO (09:26)
[2024-04-08] MEDS: SACUBITRIL/VALSARTAN 24-26 MG TABLET 1 TAB PO ×2 (09:26→20:19)
[2024-04-08] MEDS: FUROSEMIDE 20 MG TABLET PO (09:26)
[2024-04-08] MEDS: SACCHAROMYCES BOULARDII 250 MG CAPSULE PO ×3 (09:26→16:57)
[2024-04-08] MEDS: SIMETHICONE 80 MG TAB.CHEW PO ×4 (09:26→20:21)
[2024-04-08] MEDS: carvediloL 1.56 MG TABLET PO ×2 (09:27→20:19)
[2024-04-08] MEDS: POTASSIUM CHLORIDE INJ 40 MEQ in SODIUM CHLORIDE 0.9% IV 500 ML 130 MEQ IVPB (09:28)
[2024-04-08] MEDS: NEOMYCIN/POLYMYXIN/BACITRACIN OINTMENT 15 GM TUBE 1 APPLIC TOPICAL (09:28)
--- NOTE | 2024-04-08 11:37 | P.PNIM_ITS ---
Progress Note: A&P Assessment and Plan (1) Ileus: Code(s): K56.7 - Ileus, unspecified Status: Acute Assessment and Plan: * Reports BM this morning. * General surgery was following and has now signed off, appreciate recommendations. Miralax daily as needed. Hold Narcotics. * Tolerating a heart healthy diet. * GI consulted for further recommendations, plan Colonoscopy in 6 weeks as an outpatient. (2) Proctocolitis: Code(s): K52.9 - Noninfective gastroenteritis and colitis, unspecified Status: Acute Assessment and Plan: * GI consulted, appreciate recommendations. * Plan colonoscopy in 6 weeks outpatient. * Liver fibrosis panel ordered. * Hydrocortisone 25 mg rectal daily * Miralax 17 gram PO daily PRN. (3) Hypokalemia: Code(s): E87.6 - Hypokalemia Status: Acute Assessment and Plan: * Potassium 2.6>2.9>3.5>3.4>3.0>3.4. * Add Potassium Chloride 40 meq IVPB x1. * Potassium Chloride 40 meq PO BID * continue to trend (4) Paroxysmal atrial fibrillation: Code(s): I48.0 - Paroxysmal atrial fibrillation Status: Acute Assessment and Plan: * continue Eliquis and Coreg (5) Heart failure with reduced ejection fraction: Code(s): I50.20 - Unspecified systolic (congestive) heart failure Status: Acute Assessment and Plan: * Continue Entresto, carvedilol, Lasix (6) Weakness: Code(s): R53.1 - Weakness Status: Acute Assessment and Plan: * PT and OT * Case management following for additional rehab needs Subjective Date/time seen: 04/08/24 11:37 Interval history: Patient sitting up in chair smiling. is at bedside. and patient report that patient did well with therapy today. Patient denies chest pain, palpitations, headache, dizziness, nausea, or vomiting. Review of Systems Review of Systems: All systems reviewed & are unremarkable except as noted in HPI and below Exam Const: General: comfortable and no acute distress Resp: Effort & Inspection: normal respiratory effort Auscultation: clear to auscultation bilaterally Cardio: Rate: regular rate Rhythm: regular rhythm Other: paced 75 GI: GI Palp: Yes Soft to palpation Auscultation: normal bowel sounds Skin: Other: sacral wound, bilateral heel wounds with dressing intact. See wound care recommendations. Neuro: Speech: normal speech Extrem: General: no pedal edema Psych: Mental Status: mental status grossly normal Affect: normal affect Objective Data Vital Signs Vital Signs: Vital Signs - 24 hr 04/07/24 12:00 04/07/24 14:00 04/07/24 16:00 Temperature 97.1 F L Pulse Rate 83 76 73 Respiratory Rate 20 Blood Pressure 119/62 Pulse Oximetry 99 Oxygen Delivery 04/07/24 20:00 04/07/24 20:00 04/07/24 21:47 Temperature 98.9 F Pulse Rate 67 72 67 Respiratory Rate 16 16 Blood Pressure 98/58 L Pulse Oximetry 97 97 Oxygen Delivery Room Air 04/08/24 00:00 04/08/24 04:00 04/08/24 06:45 Temperature 97.6 F Pulse Rate 80 78 64 Respiratory Rate 16 Blood Pressure 112/55 L Pulse Oximetry 97 Oxygen Delivery 04/08/24 09:27 Temperature Pulse Rate 64 Respiratory Rate Blood Pressure Pulse Oximetry Oxygen Delivery Intake/Output Intake/Output: Intake & Output 04/05/24 04/06/24 04/07/24 04/08/24 23:59 23:59 23:59 23:59 Intake Total 3634 680 980 440 Output Total 800 1100 1800 450 Balance 2834 -420 -820 -10 Meds/Results Medications: Active Medications Generic Name Dose Route Start Last Admin Trade Name Freq PRN Reason Stop Dose Admin Apixaban 5 mg 04/04/24 21:00 04/08/24 09:26 Apixaban 5 Mg Tablet PO 5 mg Q12HR YARA Administration Carvedilol 1.56 mg 04/04/24 21:00 04/08/24 09:27 Carvedilol 1.56 Mg Tablet PO 1.56 mg Q12H YARA Administration Famotidine 20 mg 04/05/24 09:00 04/08/24 09:26 Famotidine 20 Mg Tablet PO 20 mg DAILY YARA Administration Folic Acid 1 mg 04/05/24 09:00 04/08/24 09:26 Folic Acid 1 Mg Tablet PO 1 mg DAILY YARA Administration Furosemide 20 mg 04/05/24 09:00 04/08/24 09:26 Furosemide 20 Mg Tablet PO 20 mg QAM YARA Administration Hydrocortisone Acetate 25 mg 04/06/24 09:00 04/08/24 09:27 Hydrocortisone Acetate 25 Mg Suppository RECTAL Not Given DAILY YARA Hyoscyamine 0.125 mg 04/04/24 17:42 Hyoscyamine Sulfate 0.125 Mg Tablet SUBLINGUAL QID PRN dyspepsia Potassium Chloride 40 meq/ 520 mls @ 130 mls/hr 04/08/24 08:31 04/08/24 09:28 Sodium Chloride IVPB 04/08/24 12:30 130 mls/hr ONCE ONE Administration Metoclopramide HCl 10 mg 04/08/24 09:00 04/08/24 09:26 Metoclopramide Hcl 10 Mg Tablet PO 10 mg BIDAC YARA Administration Multivitamins/Calcium 1 tablet 04/05/24 09:00 04/08/24 09:26 Therapeutic Multivitamins/Minerals Tab (*Bkc) PO 1 tablet DAILY YARA Administration Neomycin/Polymyxin/Bacitracin 1 applic 04/05/24 09:00 04/08/24 09:28 Neomycin/Polymyxin/Bacitracin Ointment 15 Gm Tube TOPICAL 1 applic DAILY YARA Administration Oxycodone/Acetaminophen 1 tab 04/04/24 17:42 Oxycodone/Acetaminophen (*Crx) 10-325 Mg Tablet PO Q6H PRN Pain Rated 7-10 Polyethylene Glycol 17 gm 04/05/24 09:53 Polyethylene Glycol 3350 17 Gm Powd.Pack PO QAM PRN Constipation Potassium Chloride 40 meq 04/04/24 17:55 04/08/24 09:26 Potassium Chloride 20 Meq Packet (For Liquid) PO 40 meq BID YARA Administration Saccharomyces Boulardii 250 mg 04/04/24 17:00 04/08/24 09:26 Saccharomyces Boulardii 250 Mg Capsule PO 250 mg TID YARA Administration Sacubitril/Valsartan 1 tab 04/04/24 21:00 04/08/24 09:26 Sacubitril/Valsartan 24-26 Mg Tablet PO 1 tab Q12HR YARA Administration Simethicone 80 mg 04/04/24 21:00 04/08/24 09:26 Simethicone 80 Mg Tab.Chew PO 80 mg QID YARA Administration Radiology Results: ITS Impressions Abdomen X-Ray 04/04/24 08:32 IMPRESSION: 1. Persisting gaseous distention of the sigmoid colon, likely adynamic ileus. Labs Labs: Laboratory Results - last 24 hr 04/08/24 06:56 WBC 3.9 L RBC 3.47 L Hgb 9.5 L Hct 30.7 L MCV 88.5 MCH 27.4 MCHC 30.9 L RDW 15.0 H Plt Count 105 L MPV 12.9 H Immature Gran % (Auto) 0.3 Neut % (Auto) 66.9 Lymph % (Auto) 19.5 [place] % (Auto) 11.3 H Eos % (Auto) 1.5 Baso % (Auto) 0.5 Lymph # (Auto) 0.76 L [place] # (Auto) 0.4 Eos # (Auto) 0.1 Baso # (Auto) 0.0 Abs Immat Gran (auto) 0.01 Absolute Neuts (auto) 2.6 Absolute Nucleated RBC 0.000 Nucleated RBC % 0.0 Sodium 137 Potassium 3.4 Chloride 105 Carbon Dioxide 24 Anion Gap 8 BUN 6 L Creatinine 0.51 L Estim Creat Clear Calc 102 Estimated GFR > 60 Glucose 99 Calcium 8.3 L Magnesium 1.8 Total Bilirubin 0.6 AST 31 ALT 13 Alkaline Phosphatase 124 Total Protein 5.0 L Albumin 2.7 L Quality VTE Prophylaxis VTE prophylaxis: pharmacologic ordered (on apixaban)
[2024-04-09] VITALS (7 sets, daily range): BP systolic 116–124; BP diastolic 64–68; PULSE 73–80; RESP 18–20; TEMP 36.4–36.9; O2SAT 96–97
[2024-04-09 06:37] LABS: Basophils Percent Auto 0.5 % (0.2-1.2); Eosinophils Absolute Auto 0.1 K/mm3 (0-0.3); Eosinophils Percent Auto 2.5 % (0-4.4); Hematocrit 31.8 % (42.0-52.0); Hemoglobin 9.7 g/dL (14.0-18.0); Immature Granulocyte Absolute 0.01 K/mm3 (0.00-0.031); Immature Granulocyte Percent A 0.2 % (0-0.5); Lymphocytes Absolute Auto 0.89 K/mm3 (0.9-3.2); Lymphocytes Percent Auto 20.4 % (18.3-44.2); Mean Corpuscular HGB Conc 30.5 g/dl (32-36); Mean Corpuscular Hemoglobin 27.6 pg (26-34); Mean Corpuscular Volume 90.3 fl (80-100); Mean Platelet Volume 12.7 fl (7.4-10.4); Monocytes Absolute Auto 0.6 K/mm3 (0.1-0.6); Monocytes Percent Auto 13.1 % (2.6-8.5); Neutrophils Absolute Auto 2.8 K/mm3 (1.3-6.7); Neutrophils Percent Auto 63.3 % (45.5-73.1); Platelet Count Result 101 k/mm3 (150-375); Red Blood Count 3.52 M/mm3 (4.6-6.20); Red Cell Distribution Width 14.8 % (11.5-14.5); White Blood Count 4.4 K/mm3 (4.5-10.0)
[2024-04-09 06:53] LABS: Alanine Aminotransferase 13 U/L (6-50); Albumin Level 2.8 g/dL (3.5-5.1); Alkaline Phosphatase 128 U/L (38-126); Anion Gap 7 mmol/L (4-12); Aspartate Amino Transferase 30 U/L (17-59); Bilirubin,Total 0.6 mg/dL (0.2-1.3); Blood Urea Nitrogen 5 mg/dL (9-20); Calcium 7.7 mg/dL (8.4-10.2); Carbon Dioxide 23 mmol/L (22-30); Chloride 106 mmol/L (98-107); Estimated CRCL calculation 96 ml/min; Estimated Glomerular Filt Rate > 60; Glucose 100 mg/dL (65-110); Magnesium 1.8 mg/dL (1.6-2.3); Potassium 3.5 mmol/L (3.4-5.0); Sodium 136 mmol/L (137-145)
[2024-04-09] MEDS: METOCLOPRAMIDE HCL 10 MG TABLET PO ×2 (06:54→17:28)
[2024-04-09] MEDS: POTASSIUM CHLORIDE 20 MEQ PACKET (FOR LIQUID) 40 MEQ PO ×2 (09:21→17:28)
[2024-04-09] MEDS: SIMETHICONE 80 MG TAB.CHEW PO ×4 (09:22→21:17)
[2024-04-09] MEDS: carvediloL 1.56 MG TABLET PO ×2 (09:22→21:17)
[2024-04-09] MEDS: APIXABAN 5 MG TABLET PO ×2 (09:22→21:17)
[2024-04-09] MEDS: FOLIC ACID 1 MG TABLET PO (09:22)
[2024-04-09] MEDS: THERAPEUTIC MULTIVITAMINS/MINERALS TAB (*BKC) 1 TABLET PO (09:22)
[2024-04-09] MEDS: SACCHAROMYCES BOULARDII 250 MG CAPSULE PO ×3 (09:23→17:28)
[2024-04-09] MEDS: SACUBITRIL/VALSARTAN 24-26 MG TABLET 1 TAB PO ×2 (09:23→21:17)
[2024-04-09] MEDS: FAMOTIDINE 20 MG TABLET PO (09:23)
[2024-04-09] MEDS: FUROSEMIDE 20 MG TABLET PO (09:23)
--- NOTE | 2024-04-09 09:45 | P.PNIM_ITS ---
Progress Note: A&P Assessment and Plan (1) Ileus: Code(s): K56.7 - Ileus, unspecified Status: Acute Assessment and Plan: * Reports BM this morning. * General surgery was following and has now signed off, appreciate recommendations. Miralax daily as needed. Hold Narcotics. * Tolerating a heart healthy diet. * GI consulted for further recommendations, plan Colonoscopy in 6 weeks as an outpatient. (2) Proctocolitis: Code(s): K52.9 - Noninfective gastroenteritis and colitis, unspecified Status: Acute Assessment and Plan: * GI consulted, appreciate recommendations. * Plan colonoscopy in 6 weeks outpatient. * Liver fibrosis panel ordered. * Hydrocortisone 25 mg rectal daily * Miralax 17 gram PO daily PRN. (3) Hypokalemia: Code(s): E87.6 - Hypokalemia Status: Acute Assessment and Plan: * Potassium 2.6>2.9>3.5>3.4>3.0>3.4>3.5. * Potassium Chloride 40 meq PO BID * continue to trend (4) Paroxysmal atrial fibrillation: Code(s): I48.0 - Paroxysmal atrial fibrillation Status: Acute Assessment and Plan: * continue Eliquis and Coreg (5) Heart failure with reduced ejection fraction: Code(s): I50.20 - Unspecified systolic (congestive) heart failure Status: Acute Assessment and Plan: * Continue Entresto, carvedilol, Lasix (6) Weakness: Code(s): R53.1 - Weakness Status: Acute Assessment and Plan: * PT and OT * Case management following for additional rehab needs Subjective Date/time seen: 04/09/24 09:45 Interval history: Patient sitting up in bed with at bedside. Patient denies chest pain, palpitations, headache, dizziness, nausea, or vomiting. Review of Systems Review of Systems: All systems reviewed & are unremarkable except as noted in HPI and below Exam Const: General: comfortable and no acute distress Resp: Effort & Inspection: normal respiratory effort Auscultation: clear to auscultation bilaterally Cardio: Rate: regular rate Rhythm: regular rhythm Other: Paced 78 GI: GI Palp: Yes Soft to palpation Auscultation: normal bowel sounds Skin: Other: sacral wound, bilateral heel wounds with dressing intact. See wound care recommendations. Neuro: Speech: normal speech Extrem: General: no pedal edema Psych: Mental Status: mental status grossly normal Affect: normal affect Objective Data Vital Signs Vital Signs: Vital Signs - 24 hr 04/08/24 12:00 04/08/24 14:00 04/08/24 16:00 Temperature 97.2 F L Pulse Rate 82 73 80 Respiratory Rate 18 Blood Pressure 114/60 Pulse Oximetry 97 Oxygen Delivery 04/08/24 19:58 04/08/24 20:00 04/08/24 20:00 Temperature 98.2 F Pulse Rate 78 78 71 Respiratory Rate 18 18 Blood Pressure 112/67 Pulse Oximetry 97 97 Oxygen Delivery Room Air 04/09/24 00:00 04/09/24 04:55 04/09/24 09:22 Temperature 98.3 F Pulse Rate 76 73 73 Respiratory Rate 18 Blood Pressure 124/68 Pulse Oximetry 97 Oxygen Delivery Intake/Output Intake/Output: Intake & Output 04/06/24 04/07/24 04/08/24 04/09/24 23:59 23:59 23:59 23:59 Intake Total 680 980 920 300 Output Total 1100 1800 450 800 Balance -420 -820 470 -500 Meds/Results Medications: Active Medications Generic Name Dose Route Start Last Admin Trade Name Freq PRN Reason Stop Dose Admin Apixaban 5 mg 04/04/24 21:00 04/09/24 09:22 Apixaban 5 Mg Tablet PO 5 mg Q12HR YARA Administration Carvedilol 1.56 mg 04/04/24 21:00 04/09/24 09:22 Carvedilol 1.56 Mg Tablet PO 1.56 mg Q12H YARA Administration Famotidine 20 mg 04/05/24 09:00 04/09/24 09:23 Famotidine 20 Mg Tablet PO 20 mg DAILY YARA Administration Folic Acid 1 mg 04/05/24 09:00 04/09/24 09:22 Folic Acid 1 Mg Tablet PO 1 mg DAILY YARA Administration Furosemide 20 mg 04/05/24 09:00 04/09/24 09:23 Furosemide 20 Mg Tablet PO 20 mg QAM YARA Administration Hydrocortisone Acetate 25 mg 04/06/24 09:00 04/09/24 09:25 Hydrocortisone Acetate 25 Mg Suppository RECTAL Not Given DAILY YARA Hyoscyamine 0.125 mg 04/04/24 17:42 Hyoscyamine Sulfate 0.125 Mg Tablet SUBLINGUAL QID PRN dyspepsia Metoclopramide HCl 10 mg 04/08/24 09:00 04/09/24 06:54 Metoclopramide Hcl 10 Mg Tablet PO 10 mg BIDAC YARA Administration Multivitamins/Calcium 1 tablet 04/05/24 09:00 04/09/24 09:22 Therapeutic Multivitamins/Minerals Tab (*Bkc) PO 1 tablet DAILY YARA Administration Neomycin/Polymyxin/Bacitracin 1 applic 04/05/24 09:00 04/09/24 09:31 Neomycin/Polymyxin/Bacitracin Ointment 15 Gm Tube TOPICAL Not Given DAILY YARA Oxycodone/Acetaminophen 1 tab 04/04/24 17:42 Oxycodone/Acetaminophen (*Crx) 10-325 Mg Tablet PO Q6H PRN Pain Rated 7-10 Polyethylene Glycol 17 gm 04/05/24 09:53 Polyethylene Glycol 3350 17 Gm Powd.Pack PO QAM PRN Constipation Potassium Chloride 40 meq 04/04/24 17:55 04/09/24 09:21 Potassium Chloride 20 Meq Packet (For Liquid) PO 40 meq BID YARA Administration Saccharomyces Boulardii 250 mg 04/04/24 17:00 04/09/24 09:23 Saccharomyces Boulardii 250 Mg Capsule PO 250 mg TID YARA Administration Sacubitril/Valsartan 1 tab 04/04/24 21:00 04/09/24 09:23 Sacubitril/Valsartan 24-26 Mg Tablet PO 1 tab Q12HR YARA Administration Simethicone 80 mg 04/04/24 21:00 04/09/24 09:22 Simethicone 80 Mg Tab.Chew PO 80 mg QID YARA Administration Radiology Results: ITS Impressions Abdomen X-Ray 04/04/24 08:32 IMPRESSION: 1. Persisting gaseous distention of the sigmoid colon, likely adynamic ileus. Labs Labs: Laboratory Results - last 24 hr 04/09/24 06:27 WBC 4.4 L RBC 3.52 L Hgb 9.7 L Hct 31.8 L MCV 90.3 MCH 27.6 MCHC 30.5 L RDW 14.8 H Plt Count 101 L MPV 12.7 H Immature Gran % (Auto) 0.2 Neut % (Auto) 63.3 Lymph % (Auto) 20.4 [place] % (Auto) 13.1 H Eos % (Auto) 2.5 Baso % (Auto) 0.5 Lymph # (Auto) 0.89 L [place] # (Auto) 0.6 Eos # (Auto) 0.1 Baso # (Auto) 0.0 Abs Immat Gran (auto) 0.01 Absolute Neuts (auto) 2.8 Absolute Nucleated RBC 0.000 Nucleated RBC % 0.0 Sodium 136 L Potassium 3.5 Chloride 106 Carbon Dioxide 23 Anion Gap 7 BUN 5 L Creatinine 0.55 L Estim Creat Clear Calc 96 Estimated GFR > 60 Glucose 100 Calcium 7.7 L Magnesium 1.8 Total Bilirubin 0.6 AST 30 ALT 13 Alkaline Phosphatase 128 H Total Protein 6.0 L Albumin 2.8 L Quality VTE Prophylaxis VTE prophylaxis: pharmacologic ordered (on apixaban)
[2024-04-10] MEDS: METOCLOPRAMIDE HCL 10 MG TABLET PO ×2 (05:57→17:37)
[2024-04-10 06:00] VITALS: BP 114/66; PULSE 70; RESP 16; TEMP 36.3; O2SAT 98
[2024-04-10 06:44] LABS: Basophils Percent Auto 0.6 % (0.2-1.2); Eosinophils Absolute Auto 0.1 K/mm3 (0-0.3); Eosinophils Percent Auto 2.3 % (0-4.4); Hematocrit 30.8 % (42.0-52.0); Hemoglobin 9.6 g/dL (14.0-18.0); Immature Granulocyte Absolute 0.01 K/mm3 (0.00-0.031); Immature Granulocyte Percent A 0.3 % (0-0.5); Immature Platelet Fraction Pct 6.7 % (0.9-11.2); Lymphocytes Absolute Auto 0.77 K/mm3 (0.9-3.2); Lymphocytes Percent Auto 22.6 % (18.3-44.2); Mean Corpuscular HGB Conc 31.2 g/dl (32-36); Mean Corpuscular Hemoglobin 27.7 pg (26-34); Mean Corpuscular Volume 88.8 fl (80-100); Mean Platelet Volume 12.7 fl (7.4-10.4); Monocytes Absolute Auto 0.4 K/mm3 (0.1-0.6); Monocytes Percent Auto 12.9 % (2.6-8.5); Neutrophils Absolute Auto 2.1 K/mm3 (1.3-6.7); Neutrophils Percent Auto 61.3 % (45.5-73.1); Platelet Count Result 101 k/mm3 (150-375); Red Blood Count 3.47 M/mm3 (4.6-6.20); Red Cell Distribution Width 14.7 % (11.5-14.5); White Blood Count 3.4 K/mm3 (4.5-10.0)
[2024-04-10 06:56] LABS: Alanine Aminotransferase 13 U/L (6-50); Albumin Level 2.7 g/dL (3.5-5.1); Alkaline Phosphatase 123 U/L (38-126); Anion Gap 7 mmol/L (4-12); Aspartate Amino Transferase 29 U/L (17-59); Bilirubin,Total 0.7 mg/dL (0.2-1.3); Blood Urea Nitrogen 7 mg/dL (9-20); Calcium 7.9 mg/dL (8.4-10.2); Carbon Dioxide 23 mmol/L (22-30); Chloride 107 mmol/L (98-107); Estimated CRCL calculation 101 ml/min; Estimated Glomerular Filt Rate > 60; Glucose 100 mg/dL (65-110); Magnesium 1.8 mg/dL (1.6-2.3); Potassium 3.7 mmol/L (3.4-5.0); Sodium 137 mmol/L (137-145)
[2024-04-10] MEDS: POTASSIUM CHLORIDE 20 MEQ PACKET (FOR LIQUID) 40 MEQ PO ×2 (08:44→17:38)
[2024-04-10] MEDS: SIMETHICONE 80 MG TAB.CHEW PO ×4 (08:45→21:14)
[2024-04-10] MEDS: FOLIC ACID 1 MG TABLET PO (08:45)
[2024-04-10] MEDS: SACUBITRIL/VALSARTAN 24-26 MG TABLET 1 TAB PO ×2 (08:45→21:14)
[2024-04-10 08:46] VITALS: PULSE 65
[2024-04-10] MEDS: carvediloL 1.56 MG TABLET PO ×2 (08:46→21:14)
[2024-04-10] MEDS: FUROSEMIDE 20 MG TABLET PO (08:46)
[2024-04-10] MEDS: APIXABAN 5 MG TABLET PO ×2 (08:46→21:14)
[2024-04-10] MEDS: FAMOTIDINE 20 MG TABLET PO (08:46)
[2024-04-10] MEDS: NEOMYCIN/POLYMYXIN/BACITRACIN OINTMENT 15 GM TUBE 1 APPLIC TOPICAL (08:47)
[2024-04-10] MEDS: THERAPEUTIC MULTIVITAMINS/MINERALS TAB (*BKC) 1 TABLET PO (08:47)
[2024-04-10] MEDS: SACCHAROMYCES BOULARDII 250 MG CAPSULE PO ×3 (08:47→17:38)
[2024-04-10] MEDS: HYDROCORTISONE ACETATE 25 MG SUPPOSITORY RECTAL (08:59)
--- NOTE | 2024-04-10 11:10 | P.PNIM_ITS ---
Progress Note: A&P Assessment and Plan (1) Ileus: Code(s): K56.7 - Ileus, unspecified Status: Acute Assessment and Plan: * Reports BM this morning. * General surgery was following and has now signed off, appreciate recommendations. Miralax daily as needed. Hold Narcotics. * Tolerating a heart healthy diet. * GI consulted for further recommendations, plan Colonoscopy in 6 weeks as an outpatient. (2) Proctocolitis: Code(s): K52.9 - Noninfective gastroenteritis and colitis, unspecified Status: Acute Assessment and Plan: * GI consulted, appreciate recommendations. * Plan colonoscopy in 6 weeks outpatient. * Liver fibrosis panel ordered. * Hydrocortisone 25 mg rectal daily * Miralax 17 gram PO daily PRN. (3) Hypokalemia: Code(s): E87.6 - Hypokalemia Status: Acute Assessment and Plan: * Potassium 2.6>2.9>3.5>3.4>3.0>3.4>3.5>3.7. * Potassium Chloride 40 meq PO BID * continue to trend (4) Paroxysmal atrial fibrillation: Code(s): I48.0 - Paroxysmal atrial fibrillation Status: Acute Assessment and Plan: * continue Eliquis and Coreg (5) Heart failure with reduced ejection fraction: Code(s): I50.20 - Unspecified systolic (congestive) heart failure Status: Acute Assessment and Plan: * Continue Entresto, carvedilol, Lasix (6) Weakness: Code(s): R53.1 - Weakness Status: Acute Assessment and Plan: * PT and OT * Case management awaiting insurance approval for rehab. Subjective Date/time seen: 04/10/24 11:10 Interval history: Patient sitting up in bed with at bedside. Patient denies chest pain, palpitations, headache, dizziness, nausea, or vomiting. Patient reports abdominal discomfort that is a 5 and occasional. Review of Systems Review of Systems: All systems reviewed & are unremarkable except as noted in HPI and below Exam Const: General: comfortable and no acute distress Resp: Effort & Inspection: normal respiratory effort Auscultation: clear to auscultation bilaterally Cardio: Rate: regular rate Rhythm: regular rhythm GI: GI Palp: Yes Soft to palpation Auscultation: normal bowel sounds Other: slightly distended. Skin: Other: sacral wound, bilateral heel wounds with dressing intact. See wound care recommendations. Neuro: Speech: normal speech Extrem: General: no pedal edema Psych: Mental Status: mental status grossly normal Affect: normal affect Objective Data Vital Signs Vital Signs: Vital Signs - 24 hr 04/09/24 14:00 04/09/24 20:00 04/09/24 21:17 Temperature 98.4 F Pulse Rate 76 74 74 Respiratory Rate 18 18 Blood Pressure 122/64 Pulse Oximetry 96 96 Oxygen Delivery Room Air 04/09/24 22:00 04/10/24 06:00 04/10/24 08:46 Temperature 97.6 F 97.4 F L Pulse Rate 80 70 65 Respiratory Rate 20 16 Blood Pressure 116/68 114/66 Pulse Oximetry 97 98 Oxygen Delivery Intake/Output Intake/Output: Intake & Output 04/07/24 04/08/24 04/09/24 04/10/24 23:59 23:59 23:59 23:59 Intake Total 264 012 5980 480 Output Total 2503 557 6997 700 Balance -820 470 140 -220 Meds/Results Medications: Active Medications Generic Name Dose Route Start Last Admin Trade Name Freq PRN Reason Stop Dose Admin Apixaban 5 mg 04/04/24 21:00 04/10/24 08:46 Apixaban 5 Mg Tablet PO 5 mg Q12HR YARA Administration Carvedilol 1.56 mg 04/04/24 21:00 04/10/24 08:46 Carvedilol 1.56 Mg Tablet PO 1.56 mg Q12H YARA Administration Famotidine 20 mg 04/05/24 09:00 04/10/24 08:46 Famotidine 20 Mg Tablet PO 20 mg DAILY YARA Administration Folic Acid 1 mg 04/05/24 09:00 04/10/24 08:45 Folic Acid 1 Mg Tablet PO 1 mg DAILY YARA Administration Furosemide 20 mg 04/05/24 09:00 04/10/24 08:46 Furosemide 20 Mg Tablet PO 20 mg QAM YARA Administration Hydrocortisone Acetate 25 mg 04/06/24 09:00 04/10/24 08:59 Hydrocortisone Acetate 25 Mg Suppository RECTAL 25 mg DAILY YARA Administration Hyoscyamine 0.125 mg 04/04/24 17:42 Hyoscyamine Sulfate 0.125 Mg Tablet SUBLINGUAL QID PRN dyspepsia Metoclopramide HCl 10 mg 04/08/24 09:00 04/10/24 05:57 Metoclopramide Hcl 10 Mg Tablet PO 10 mg BIDAC YARA Administration Multivitamins/Calcium 1 tablet 04/05/24 09:00 04/10/24 08:47 Therapeutic Multivitamins/Minerals Tab (*Bkc) PO 1 tablet DAILY YARA Administration Neomycin/Polymyxin/Bacitracin 1 applic 04/05/24 09:00 04/10/24 08:47 Neomycin/Polymyxin/Bacitracin Ointment 15 Gm Tube TOPICAL 1 applic DAILY YARA Administration Oxycodone/Acetaminophen 1 tab 04/04/24 17:42 Oxycodone/Acetaminophen (*Crx) 10-325 Mg Tablet PO Q6H PRN Pain Rated 7-10 Polyethylene Glycol 17 gm 04/05/24 09:53 Polyethylene Glycol 3350 17 Gm Powd.Pack PO QAM PRN Constipation Potassium Chloride 40 meq 04/04/24 17:55 04/10/24 08:44 Potassium Chloride 20 Meq Packet (For Liquid) PO 40 meq BID YARA Administration Saccharomyces Boulardii 250 mg 04/04/24 17:00 04/10/24 08:47 Saccharomyces Boulardii 250 Mg Capsule PO 250 mg TID YARA Administration Sacubitril/Valsartan 1 tab 04/04/24 21:00 04/10/24 08:45 Sacubitril/Valsartan 24-26 Mg Tablet PO 1 tab Q12HR YARA Administration Simethicone 80 mg 04/04/24 21:00 04/10/24 08:45 Simethicone 80 Mg Tab.Chew PO 80 mg QID YARA Administration Radiology Results: ITS Impressions Abdomen X-Ray 04/04/24 08:32 IMPRESSION: 1. Persisting gaseous distention of the sigmoid colon, likely adynamic ileus. Labs Labs: Laboratory Results - last 24 hr 04/10/24 06:28 WBC 3.4 L RBC 3.47 L Hgb 9.6 L Hct 30.8 L MCV 88.8 MCH 27.7 MCHC 31.2 L RDW 14.7 H Plt Count 101 L MPV 12.7 H Immature Gran % (Auto) 0.3 Neut % (Auto) 61.3 Lymph % (Auto) 22.6 [place] % (Auto) 12.9 H Eos % (Auto) 2.3 Baso % (Auto) 0.6 Lymph # (Auto) 0.77 L [place] # (Auto) 0.4 Eos # (Auto) 0.1 Baso # (Auto) 0.0 Abs Immat Gran (auto) 0.01 Absolute Neuts (auto) 2.1 Absolute Nucleated RBC 0.000 Nucleated RBC % 0.0 % Immature Plt Fraction 6.7 Sodium 137 Potassium 3.7 Chloride 107 Carbon Dioxide 23 Anion Gap 7 BUN 7 L Creatinine 0.52 L Estim Creat Clear Calc 101 Estimated GFR > 60 Glucose 100 Calcium 7.9 L Magnesium 1.8 Total Bilirubin 0.7 AST 29 ALT 13 Alkaline Phosphatase 123 Total Protein 5.0 L Albumin 2.7 L Quality VTE Prophylaxis VTE prophylaxis: pharmacologic ordered (on apixaban)
[2024-04-10] MEDS: polyethylene glycoL 3350 17 GM POWD.PACK PO (12:27)
[2024-04-10 13:40] VITALS: BP 102/62; PULSE 72; RESP 18; TEMP 37; O2SAT 99
[2024-04-10 20:00] VITALS: PULSE 77; RESP 18; O2SAT 99
[2024-04-10 21:14] VITALS: PULSE 77
[2024-04-10 22:00] VITALS: BP 122/60; PULSE 77; RESP 16; TEMP 36.6; O2SAT 98
[2024-04-11] MEDS: METOCLOPRAMIDE HCL 10 MG TABLET PO ×2 (05:28→16:53)
[2024-04-11 05:59] VITALS: BP 115/66; PULSE 70; RESP 14; TEMP 36.5; O2SAT 98
[2024-04-11 07:20] LABS: Basophils Percent Auto 0.7 % (0.2-1.2); Eosinophils Absolute Auto 0.1 K/mm3 (0-0.3); Eosinophils Percent Auto 2.2 % (0-4.4); Hematocrit 32.2 % (42.0-52.0); Hemoglobin 10.1 g/dL (14.0-18.0); Immature Granulocyte Absolute 0.01 K/mm3 (0.00-0.031); Immature Granulocyte Percent A 0.2 % (0-0.5); Lymphocytes Absolute Auto 0.97 K/mm3 (0.9-3.2); Lymphocytes Percent Auto 23.4 % (18.3-44.2); Mean Corpuscular HGB Conc 31.4 g/dl (32-36); Mean Corpuscular Hemoglobin 28.1 pg (26-34); Mean Corpuscular Volume 89.4 fl (80-100); Mean Platelet Volume 12.6 fl (7.4-10.4); Monocytes Absolute Auto 0.5 K/mm3 (0.1-0.6); Monocytes Percent Auto 11.4 % (2.6-8.5); Neutrophils Absolute Auto 2.6 K/mm3 (1.3-6.7); Neutrophils Percent Auto 62.1 % (45.5-73.1); Platelet Count Result 124 k/mm3 (150-375); Red Cell Distribution Width 14.6 % (11.5-14.5); White Blood Count 4.1 K/mm3 (4.5-10.0)
[2024-04-11 07:32] LABS: Alanine Aminotransferase 13 U/L (6-50); Albumin Level 2.8 g/dL (3.5-5.1); Alkaline Phosphatase 123 U/L (38-126); Anion Gap 6 mmol/L (4-12); Aspartate Amino Transferase 30 U/L (17-59); Bilirubin,Total 0.6 mg/dL (0.2-1.3); Blood Urea Nitrogen 6 mg/dL (9-20); Carbon Dioxide 23 mmol/L (22-30); Chloride 108 mmol/L (98-107); Estimated CRCL calculation 104 ml/min; Estimated Glomerular Filt Rate > 60; Glucose 101 mg/dL (65-110); Potassium 3.6 mmol/L (3.4-5.0); Sodium 137 mmol/L (137-145)
[2024-04-11] MEDS: POTASSIUM CHLORIDE 20 MEQ PACKET (FOR LIQUID) 40 MEQ PO ×2 (08:19→16:53)
[2024-04-11 08:21] VITALS: PULSE 70
[2024-04-11] MEDS: NEOMYCIN/POLYMYXIN/BACITRACIN OINTMENT 15 GM TUBE 1 APPLIC TOPICAL (08:21)
[2024-04-11] MEDS: FAMOTIDINE 20 MG TABLET PO (08:21)
[2024-04-11] MEDS: HYDROCORTISONE ACETATE 25 MG SUPPOSITORY RECTAL (08:21)
[2024-04-11] MEDS: carvediloL 1.56 MG TABLET PO ×2 (08:21→21:26)
[2024-04-11] MEDS: APIXABAN 5 MG TABLET PO ×2 (08:22→21:26)
[2024-04-11] MEDS: FUROSEMIDE 20 MG TABLET PO (08:22)
[2024-04-11] MEDS: SACCHAROMYCES BOULARDII 250 MG CAPSULE PO ×3 (08:22→16:53)
[2024-04-11] MEDS: FOLIC ACID 1 MG TABLET PO (08:22)
[2024-04-11] MEDS: THERAPEUTIC MULTIVITAMINS/MINERALS TAB (*BKC) 1 TABLET PO (08:23)
[2024-04-11] MEDS: SIMETHICONE 80 MG TAB.CHEW PO ×4 (08:23→21:26)
[2024-04-11] MEDS: SACUBITRIL/VALSARTAN 24-26 MG TABLET 1 TAB PO ×2 (08:23→21:26)
--- NOTE | 2024-04-11 10:35 | PCNFU ---
Nutrition Follow-Up Complete: Inadequate energy intake related to diet order as evidenced by NPO status Increased nutrient needs related to altered skin integrity as evidenced by multiple areas of pressure injuries Meet estimated needs - Meeting goal. Continue with same goal Goal: Pt current nutrition is Regular diet. Ensure Enlive BID (350 kcal, 20 g protein) and Leonel BID for wound support (90 kcal, 2.5 g protein, +arginine and glutamine). Nutrition recommendation: No new recommendations. Continue current nutrition care plan and orders. Agree with orders Last recorded weight is 80.4 kg. Bowel Motility: +3 BMs 04/10, +1 BM 04/11. Labs Reviewed: Hgb 10.1, Hct 32.2, Alb 2.8, BUN 6, Cre 0.5 Meds Noted Lasix, reglan, folrastor, pepcid: Skin: Multiple pressure injuries: Stage 3 R buttock, Unstageable R heel, Deep tissue injury L heel Additional Notes: Intakes are good. Having bowel movements. Leonel for wound support. Awaiting insurance auth for SNF at discharge. Monitor diet orders, intake, wt, labs, skin. Follow up in 3 days.
--- NOTE | 2024-04-11 11:12 | P.PNIM_ITS ---
Progress Note: A&P Assessment and Plan (1) Ileus: Code(s): K56.7 - Ileus, unspecified Status: Acute Assessment and Plan: * Patient had 3 bowel movements yesterday and 2 today, stool soft consistency today per nursing. * General surgery was following and has now signed off, appreciate recommendations. Miralax daily as needed. Hold Narcotics. * Tolerating a heart healthy diet. * GI consulted for further recommendations, plan Colonoscopy in 6 weeks as an outpatient. (2) Proctocolitis: Code(s): K52.9 - Noninfective gastroenteritis and colitis, unspecified Status: Acute Assessment and Plan: * GI consulted, appreciate recommendations. * Plan colonoscopy in 6 weeks outpatient. * Liver fibrosis panel ordered. * Hydrocortisone 25 mg rectal daily * Miralax 17 gram PO daily PRN. (3) Hypokalemia: Code(s): E87.6 - Hypokalemia Status: Acute Assessment and Plan: * Potassium 2.6>2.9>3.5>3.4>3.0>3.4>3.5>3.7>3.6. * Potassium Chloride 40 meq PO BID * continue to trend (4) Paroxysmal atrial fibrillation: Code(s): I48.0 - Paroxysmal atrial fibrillation Status: Acute Assessment and Plan: * continue Eliquis and Coreg (5) Heart failure with reduced ejection fraction: Code(s): I50.20 - Unspecified systolic (congestive) heart failure Status: Acute Assessment and Plan: * Continue Entresto, carvedilol, Lasix (6) Weakness: Code(s): R53.1 - Weakness Status: Acute Assessment and Plan: * PT and OT * Case management awaiting insurance approval for rehab. Subjective Date/time seen: 04/11/24 11:12 Interval history: Patient lying in bed with at bedside. Patient denies chest pain, palpitations, headache, dizziness, nausea, or vomiting. Denies abdominal pain today. Patient had 3 bowel movements yesterday and 2 today, stool soft consi stency today per nursing. Review of Systems Review of Systems: All systems reviewed & are unremarkable except as noted in HPI and below Exam Const: General: comfortable and no acute distress Resp: Effort & Inspection: normal respiratory effort Auscultation: clear to auscultation bilaterally Cardio: Rate: regular rate Rhythm: regular rhythm GI: GI Palp: Yes Soft to palpation Auscultation: normal bowel sounds Skin: Other: sacral wound, bilateral heel wounds with dressing intact. See wound care recommendations. Specialty mattress ordered. Neuro: Speech: normal speech Extrem: General: no pedal edema Psych: Mental Status: mental status grossly normal Affect: normal affect Objective Data Vital Signs Vital Signs: Vital Signs - 24 hr 04/10/24 13:40 04/10/24 20:00 04/10/24 21:14 Temperature 98.6 F Pulse Rate 72 77 77 Respiratory Rate 18 18 Blood Pressure 102/62 Pulse Oximetry 99 99 Oxygen Delivery Room Air 04/10/24 22:00 04/11/24 05:59 04/11/24 08:21 Temperature 97.9 F 97.7 F Pulse Rate 77 70 70 Respiratory Rate 16 14 Blood Pressure 122/60 115/66 Pulse Oximetry 98 98 Oxygen Delivery Intake/Output Intake/Output: Intake & Output 04/08/24 04/09/24 04/10/24 04/11/24 23:59 23:59 23:59 23:59 Intake Total 920 1640 720 290 Output Total 450 1500 1625 600 Balance 470 140 -905 -310 Meds/Results Medications: Active Medications Generic Name Dose Route Start Last Admin Trade Name Freq PRN Reason Stop Dose Admin Apixaban 5 mg 04/04/24 21:00 04/11/24 08:22 Apixaban 5 Mg Tablet PO 5 mg Q12HR YARA Administration Carvedilol 1.56 mg 04/04/24 21:00 04/11/24 08:21 Carvedilol 1.56 Mg Tablet PO 1.56 mg Q12H YARA Administration Famotidine 20 mg 04/05/24 09:00 04/11/24 08:21 Famotidine 20 Mg Tablet PO 20 mg DAILY YARA Administration Folic Acid 1 mg 04/05/24 09:00 04/11/24 08:22 Folic Acid 1 Mg Tablet PO 1 mg DAILY YARA Administration Furosemide 20 mg 04/05/24 09:00 04/11/24 08:22 Furosemide 20 Mg Tablet PO 20 mg QAM YARA Administration Hydrocortisone Acetate 25 mg 04/06/24 09:00 04/11/24 08:21 Hydrocortisone Acetate 25 Mg Suppository RECTAL 25 mg DAILY YARA Administration Hyoscyamine 0.125 mg 04/04/24 17:42 Hyoscyamine Sulfate 0.125 Mg Tablet SUBLINGUAL QID PRN dyspepsia Metoclopramide HCl 10 mg 04/08/24 09:00 04/11/24 05:28 Metoclopramide Hcl 10 Mg Tablet PO 10 mg BIDAC YARA Administration Multivitamins/Calcium 1 tablet 04/05/24 09:00 04/11/24 08:23 Therapeutic Multivitamins/Minerals Tab (*Bkc) PO 1 tablet DAILY YARA Administration Neomycin/Polymyxin/Bacitracin 1 applic 04/05/24 09:00 04/11/24 08:21 Neomycin/Polymyxin/Bacitracin Ointment 15 Gm Tube TOPICAL 1 applic DAILY YARA Administration Oxycodone/Acetaminophen 1 tab 04/04/24 17:42 Oxycodone/Acetaminophen (*Crx) 10-325 Mg Tablet PO Q6H PRN Pain Rated 7-10 Polyethylene Glycol 17 gm 04/05/24 09:53 04/10/24 12:27 Polyethylene Glycol 3350 17 Gm Powd.Pack PO 17 gm QAM PRN Administration Constipation Potassium Chloride 40 meq 04/04/24 17:55 04/11/24 08:19 Potassium Chloride 20 Meq Packet (For Liquid) PO 40 meq BID YARA Administration Saccharomyces Boulardii 250 mg 04/04/24 17:00 04/11/24 08:22 Saccharomyces Boulardii 250 Mg Capsule PO 250 mg TID YARA Administration Sacubitril/Valsartan 1 tab 04/04/24 21:00 04/11/24 08:23 Sacubitril/Valsartan 24-26 Mg Tablet PO 1 tab Q12HR YARA Administration Simethicone 80 mg 04/04/24 21:00 04/11/24 08:23 Simethicone 80 Mg Tab.Chew PO 80 mg QID YARA Administration Radiology Results: ITS Impressions Abdomen X-Ray 04/04/24 08:32 IMPRESSION: 1. Persisting gaseous distention of the sigmoid colon, likely adynamic ileus. Labs Labs: Laboratory Results - last 24 hr 04/11/24 06:51 WBC 4.1 L RBC 3.60 L Hgb 10.1 L Hct 32.2 L MCV 89.4 MCH 28.1 MCHC 31.4 L RDW 14.6 H Plt Count 124 L MPV 12.6 H Immature Gran % (Auto) 0.2 Neut % (Auto) 62.1 Lymph % (Auto) 23.4 [place] % (Auto) 11.4 H Eos % (Auto) 2.2 Baso % (Auto) 0.7 Lymph # (Auto) 0.97 [place] # (Auto) 0.5 Eos # (Auto) 0.1 Baso # (Auto) 0.0 Abs Immat Gran (auto) 0.01 Absolute Neuts (auto) 2.6 Absolute Nucleated RBC 0.000 Nucleated RBC % 0.0 Sodium 137 Potassium 3.6 Chloride 108 H Carbon Dioxide 23 Anion Gap 6 BUN 6 L Creatinine 0.50 L Estim Creat Clear Calc 104 Estimated GFR > 60 Glucose 101 Calcium 8.0 L Magnesium 2.0 Total Bilirubin 0.6 AST 30 ALT 13 Alkaline Phosphatase 123 Total Protein 6.0 L Albumin 2.8 L Quality VTE Prophylaxis VTE prophylaxis: pharmacologic ordered (on apixaban)
[2024-04-11 14:00] VITALS: BP 100/53; PULSE 74; RESP 18; TEMP 35.9; O2SAT 99
[2024-04-11 20:00] VITALS: PULSE 60; RESP 18; O2SAT 99
[2024-04-11 21:26] VITALS: PULSE 60
[2024-04-11 22:00] VITALS: BP 115/55; PULSE 69; RESP 12; TEMP 36.4; O2SAT 100
[2024-04-12] MEDS: METOCLOPRAMIDE HCL 10 MG TABLET PO (05:26)
[2024-04-12 05:56] VITALS: BP 111/57; PULSE 57; RESP 14; TEMP 36.4; O2SAT 99
[2024-04-12 07:15] LABS: Basophils Percent Auto 0.5 % (0.2-1.2); Eosinophils Absolute Auto 0.1 K/mm3 (0-0.3); Eosinophils Percent Auto 1.8 % (0-4.4); Hematocrit 33.3 % (42.0-52.0); Hemoglobin 10.2 g/dL (14.0-18.0); Immature Granulocyte Absolute 0.01 K/mm3 (0.00-0.031); Immature Granulocyte Percent A 0.2 % (0-0.5); Lymphocytes Absolute Auto 1.03 K/mm3 (0.9-3.2); Lymphocytes Percent Auto 23.5 % (18.3-44.2); Mean Corpuscular HGB Conc 30.6 g/dl (32-36); Mean Corpuscular Hemoglobin 27.4 pg (26-34); Mean Corpuscular Volume 89.5 fl (80-100); Mean Platelet Volume 12.5 fl (7.4-10.4); Monocytes Absolute Auto 0.5 K/mm3 (0.1-0.6); Monocytes Percent Auto 11.2 % (2.6-8.5); Neutrophils Absolute Auto 2.8 K/mm3 (1.3-6.7); Neutrophils Percent Auto 62.8 % (45.5-73.1); Platelet Count Result 145 k/mm3 (150-375); Red Blood Count 3.72 M/mm3 (4.6-6.20); Red Cell Distribution Width 14.6 % (11.5-14.5); White Blood Count 4.4 K/mm3 (4.5-10.0)
[2024-04-12 07:22] LABS: Alanine Aminotransferase 13 U/L (6-50); Albumin Level 2.9 g/dL (3.5-5.1); Alkaline Phosphatase 123 U/L (38-126); Anion Gap 8 mmol/L (4-12); Aspartate Amino Transferase 29 U/L (17-59); Bilirubin,Total 0.7 mg/dL (0.2-1.3); Blood Urea Nitrogen 9 mg/dL (9-20); Calcium 8.2 mg/dL (8.4-10.2); Carbon Dioxide 23 mmol/L (22-30); Chloride 108 mmol/L (98-107); Estimated CRCL calculation 96 ml/min; Estimated Glomerular Filt Rate > 60; Glucose 101 mg/dL (65-110); Potassium 3.4 mmol/L (3.4-5.0); Sodium 139 mmol/L (137-145)
[2024-04-12 09:23] VITALS: PULSE 80
[2024-04-12] MEDS: SIMETHICONE 80 MG TAB.CHEW PO ×2 (09:23→12:18)
[2024-04-12] MEDS: FUROSEMIDE 20 MG TABLET PO (09:23)
[2024-04-12] MEDS: carvediloL 1.56 MG TABLET PO (09:23)
[2024-04-12] MEDS: POTASSIUM CHLORIDE 20 MEQ PACKET (FOR LIQUID) 40 MEQ PO (09:26)
[2024-04-12] MEDS: FOLIC ACID 1 MG TABLET PO (09:26)
[2024-04-12] MEDS: SACUBITRIL/VALSARTAN 24-26 MG TABLET 1 TAB PO (09:26)
[2024-04-12] MEDS: THERAPEUTIC MULTIVITAMINS/MINERALS TAB (*BKC) 1 TABLET PO (09:26)
[2024-04-12] MEDS: SACCHAROMYCES BOULARDII 250 MG CAPSULE PO ×2 (09:26→12:21)
[2024-04-12] MEDS: FAMOTIDINE 20 MG TABLET PO (09:26)
[2024-04-12] MEDS: APIXABAN 5 MG TABLET PO (09:26)
[2024-04-12] MEDS: HYDROCORTISONE ACETATE 25 MG SUPPOSITORY RECTAL (09:26)
[2024-04-12] MEDS: NEOMYCIN/POLYMYXIN/BACITRACIN OINTMENT 15 GM TUBE 1 APPLIC TOPICAL (09:27)
--- NOTE | 2024-04-12 11:38 | P.DS_ITS ---
DS: Admitting Diagnosis Discharge Date 04/12/2024 Admitting Diagnosis ileus vs obstruction DS: Discharge Diagnosis Discharge Diagnosis (1) Ileus: Code(s): K56.7 - Ileus, unspecified Status: Acute (2) Proctocolitis: Code(s): K52.9 - Noninfective gastroenteritis and colitis, unspecified Status: Acute (3) Hypokalemia: Code(s): E87.6 - Hypokalemia Status: Acute (4) Paroxysmal atrial fibrillation: Code(s): I48.0 - Paroxysmal atrial fibrillation Status: Acute (5) Heart failure with reduced ejection fraction: Code(s): I50.20 - Unspecified systolic (congestive) heart failure Status: Acute (6) Weakness: Code(s): R53.1 - Weakness Status: Acute DS: Summary Hospital Course Hospital Course: Patient transferred here from [facility] with abdominal distention and low potassium. Abdominal pelvis CT 04/02/24: IMPRESSION: Distal sigmoid colitis and proctitis, likely resulting in large bowel ileus. Obstruction not excluded. Cystitis. Slightly decreased size of the peripherally enhancing fat and fluid collection surrounding the internally fixated left intertrochanteric fracture, presumably posttraumatic/postsurgical change. Infection/abscess not excluded. Multiple pancreatic cysts. 3.9 cm infrarenal abdominal aortic aneurysm. Recommend CT abdomen and pelvis with contrast follow-up in 2 years for both findings. Abdominal X-ray: IMPRESSION: 1. Persisting gaseous distention of the sigmoid colon, likely adynamic ileus. Surgery and GI followed. Patient improved with bowel regimen without surgical intervention. PT/OT worked with patient. Potassium repleted. Patient approved to go back to [facility] for rehabilitation. Patient to have a Colonoscopy done outpatient in 6 weeks. Status at Discharge Functional status at discharge: uses cane/walker Overall status at discharge: patient is not back to baseline Time Spent with Patient Time attestation: Total time spent providing and/or coordinating discharge services: Time spent: Greater than 30 minutes Exam Const: General: comfortable and no acute distress Resp: Effort & Inspection: normal respiratory effort Auscultation: clear to auscultation bilaterally Cardio: Rate: regular rate Rhythm: regular rhythm GI: GI Palp: Yes Soft to palpation Auscultation: normal bowel sounds Skin: Other: sacral wound, bilateral heel wounds with dressing intact. See wound care recommendations. Specialty mattress first step flex. Extrem: General: no pedal edema Psych: Mental Status: mental status grossly normal Affect: normal affect DS: Data Data Completed and Pending Labs on day of discharge: Labs from last 24 hours 04/12/24 06:40 WBC 4.4 L RBC 3.72 L Hgb 10.2 L Hct 33.3 L MCV 89.5 MCH 27.4 MCHC 30.6 L RDW 14.6 H Plt Count 145 L MPV 12.5 H Immature Gran % (Auto) 0.2 Neut % (Auto) 62.8 Lymph % (Auto) 23.5 [place] % (Auto) 11.2 H Eos % (Auto) 1.8 Baso % (Auto) 0.5 Lymph # (Auto) 1.03 [place] # (Auto) 0.5 Eos # (Auto) 0.1 Baso # (Auto) 0.0 Abs Immat Gran (auto) 0.01 Absolute Neuts (auto) 2.8 Absolute Nucleated RBC 0.000 Nucleated RBC % 0.0 Sodium 139 Potassium 3.4 Chloride 108 H Carbon Dioxide 23 Anion Gap 8 BUN 9 Creatinine 0.55 L Estim Creat Clear Calc 96 Estimated GFR > 60 Glucose 101 Calcium 8.2 L Magnesium 2.0 Total Bilirubin 0.7 AST 29 ALT 13 Alkaline Phosphatase 123 Total Protein 6.0 L Albumin 2.9 L Discharge Plan Discharge Attending physician on discharge: Ming Gonzalez Discharging Clinician: Yeni Mcgregor Anticipated Discharge Date/Time: 04/12/24 12:30 Patient Disposition: Hospital Swing Bed Activity: may shower and as tolerated Diet: regular Discharge Instructions: * Patient using a First Step Flex bed mattress he would like to keep using and doing well with trapeze. * Take medications as prescribed. * does not want patient started back on Atorvastatin at this time. * Supplements Leonel 1 pk BID and Ensure Enlive BID. * Transfer to [facility] bed for rehabilitation. Thank you for entrusting [facility] with your healthcare! Patient Instructions: Antibiotic Form, Constipation (DC), Pain Management in Older Adults (DC), Hypokalemia (DC), Ileus (DC) Patient Language: Kyrgyz Stand Alone Forms: General Discharge Information Discharge Medications: New hydrocortisone acetate [Anusol-HC] 25 mg Suppository 25 mg RECTAL DAILY Qty: 24 0RF polyethylene glycol 3350 [Miralax] 17 gram Powder In Packet 17 g PO QAM PRN (Reason: Constipation) Qty: 30 0RF Continued magnesium hydroxide [Milk of Magnesia] 400 mg/5 mL Suspension 30 ml PO BID Qty: 355 0RF metoclopramide HCl [Reglan] 10 mg Tablet 10 mg PO BID Qty: 10 0RF Saccharomyces boulardii [Florastor] 250 mg Capsule 250 mg PO TID Qty: 10 0RF simethicone 80 mg Tablet,Chewable 80 mg PO QID Qty: 10 0RF furosemide 20 mg tablet 20 mg PO QAM 30 Days Qty: 0 0RF [id number] Packet 1 applic topical DAILY potassium chloride 20 mEq Packet 40 meq PO BID apixaban 5 mg tablet 5 mg PO BID famotidine 10 mg tablet 20 mg PO DAILY folic acid 1 mg tablet 1 mg PO DAILY sacubitril-valsartan 24-26 mg tablet 1 tablet PO BID Thera-M 9 mg iron-400 mcg tablet 1 tablet PO DAILY carvedilol 3.125 mg tablet 1.56 mg PO Q12H Rx Instructions: must administer with a meal/food hyoscyamine sulfate 0.125 mg tablet, sublingual 0.125 mg sublingual QID PRN (Reason: dyspepsia) Qty: 120 2RF Discontinued dicyclomine 10 mg Capsule 20 mg PO TID Qty: 10 0RF potassium chloride [K-Tab] 20 mEq Tablet Extended Release 40 meq PO BIDWM Qty: 10 0RF loperamide [Imodium A-D] 2 mg capsule 2 mg PO Q6H PRN (Reason: diarrhea) sacubitril-valsartan [Entresto] 24-26 mg tablet 1 tablet PO BID oxycodone-acetaminophen 10-325 mg Tablet 1 tablet PO Q6H PRN (Reason: Pain Rated 7-10) 5 Days Qty: 12 0RF atorvastatin 80 mg Tablet 80 mg PO HS Qty: 30 0RF Date of admission: 04/04/24 07:22 Primary Care Provider: Georgiana Tripp Admitting Provider: Gage Espitia Attending physician on admission: Joselyn Benavidez Condition: Improved Hospitalist MIPS Heart Failure (Exclusion) Patient has history of Heart Transplant or Left Ventricular Assistive Device?: No IF YES, STOP HERE Heart Failure (Qualifier) Patient has current or prior documentation of LVEF less than or equal to 40%, or mod/servere depressed LVSF?: No IF NO, STOP HERE
[2024-04-12 14:00] VITALS: BP 118/62; PULSE 79; RESP 14; TEMP 36; O2SAT 100
[2024-04-13 11:23] LABS: ALT 6 U/L (9-46); Alpha-2-Macroglobulin 203 mg/dL (106-279); Apolipoprotein A1 80 mg/dL (94-176); Fibrosis Score 0.46; Fibrosis Stage F1-F2; GGT 18 U/L (3-70); Haptoglobin 193 mg/dL (43-212); Necroinflammat Act Grade A0; Reference ID 5342802; Total Bilirubin 0.4 mg/dL (0.2-1.2)
== END 2024-04-12 16:10 | disposition swing bed (61) | DRG 389 ==
PROVIDERS: Nurse Practitioner Acute Care; Nurse Practitioner Family; Physician Assistant; Admitting Provider Internal Medicine; PCP Family Medicine; Visit Provider Nurse Practitioner Family
DX: K56.0 Paralytic ileus (principal); D61.818 Other pancytopenia; I50.22 Chronic systolic (congestive) heart failure; K52.9 Noninfective gastroenteritis and colitis, unspecified; E87.6 Hypokalemia; I48.0 Paroxysmal atrial fibrillation; D50.9 Iron deficiency anemia, unspecified; K21.9 Gastro-esophageal reflux disease without esophagitis; G20.A1 Parkinson's disease without dyskinesia, without mention of fluctuations; D69.6 Thrombocytopenia, unspecified; M19.90 Unspecified osteoarthritis, unspecified site; I25.10 Atherosclerotic heart disease of native coronary artery without angina pectoris; I11.0 Hypertensive heart disease with heart failure; K76.0 Fatty (change of) liver, not elsewhere classified; Z86.711 Personal history of pulmonary embolism; Z86.718 Personal history of other venous thrombosis and embolism; Z95.0 Presence of cardiac pacemaker; Z79.01 Long term (current) use of anticoagulants; Z95.2 Presence of prosthetic heart valve; Z86.73 Personal history of transient ischemic attack (TIA), and cerebral infarction without residual deficits; Z85.828 Personal history of other malignant neoplasm of skin
CPT/HCPCS: 36415; 74019; 80048; 80053; 81596; 82948; 83735; 84100; 84132; 84134; 84443; 85025; 85027; 85055; 96374; 96375; 97110; 97116; 97162; 97165; 97530; 97535; A9270; G0378; G0379; J0612; J3475; J3480; J7040; J7050

== ENCOUNTER 2024-04-12 16:53 | Inpatient (IN) | payer MEDICARE, SELFPAY ==
--- OUTSIDE RECORDS SUMMARY | 2024-04-12 16:57 | XMS_ITS | Continuity of Care Document ---
Author Name [facility] Organization [facility] Care Team Providers Care Dance Historian Name Role Phone [facility] Unavailable Unavailable Problems [facility] list [facility] from [facility] facilities. It does not include entries that were removed or entered in error. Problem Status Onset Date Problem Type Date of Resolution Comments Source Cerebellar stroke syndrome Active Condition [facility] Deep venous thrombosis Active Condition Apr 02, 2021 Entered By: RAVIN CASTILLO Comment: Bilateral-F ebruary 2021 [facility] Erectile dysfunction Active Condition [facility] H/O: pacemaker in situ Active Condition [facility] Hypercholesterolemia Active Condition 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 Medication Details Route Status Patient Instructions Prescription Expires Prescription Number Last Dispense Date Ordering Provider Order Date Order Qty Source APIXABAN 5MG TAB TAKE ONE TABLET BY MOUTH TWICE A DAY ORAL ACTIVE GERALDINE CASTILLO E B 2021 [facility] Rosanne ATORVASTATI N [place] 80MG TAB TAKE ONE TABLET BY MOUTH EVERY EVENING ORAL ACTIVE GERALDINE CASTILLO E B 2021 [facility] N CARVEDILOL 6.25MG TAB TAKE ONE-HALF TABLET BY MOUTH TWICE A DAY ORAL ACTIVE GERALDINE CASTILLO E B 2021 [facility] N FOLIC ACID 1MG TAB TAKE ONE TABLET BY MOUTH ONCE A DAY ORAL ACTIVE NARRA,SRE E B 2021 [facility] N FUROSEMIDE 20MG TAB TAKE ONE TABLET BY MOUTH EVERY MORNING ORAL ACTIVE NARRA,SRE E B 2021 [facility] N MULTIVITAMI NS W/MINERALS CAP/TAB TAKE 1 CAP/TAB BY MOUTH ONCE A DAY ORAL ACTIVE NARRA,SRE E B 2021 [facility] N SACUBITRIL 49MG/VALSAR BACH 51MG TAB TAKE ONE-HALF TABLET BY MOUTH TWICE A DAY ORAL ACTIVE NARRA,SRE E B 2021 [facility] N SILDENAFIL CITRATE 50MG TAB TAKE ONE-HALF TABLET BY MOUTH TWO TIMES PER WEEK NEEDED FOR ERECTILE DYSFUNCT ION (TAKE 60 MINUTES PRIOR TO SEXUAL ACTIVITY ) - LIMIT 6 DOSES PER 30 DAYS ORAL 11/24/2023 [id number] 3 NORMANA,SRE E B 2022 6 [facility] N THIAMINE 50MG TAB TAKE ONE TABLET BY MOUTH ONCE A DAY ORAL ACTIVE NORMANA,SRE E B 2021 [facility] N Immunizations Combined list of available immunizations from the Department of Defense and Veterans Affairs facilities. Immunization Series Date Given Administered By Site Reaction Lot Number CVX Code Drug Breast Worker Status Comments Source ZOSTER RECOMBINANT 2 2022 KARLA BARLOW RIGHT DELTO ID [id number] 187 complet ed [facility] N PNEUMOCOCCAL POLYSACCHARID E PPV23 2022 KARY BUCKNER RIGHT DELTO ID [id number] 33 complet ed [facility] N ZOSTER RECOMBINANT 1 2022 KARY BUCKNER LEFT DELTO ID [id number] 187 complet ed [facility] N INFLUENZA, UNSPECIFIED FORMULATION 2021 88 complet ed [facility] N PNEUMOCOCCAL CONJUGATE PCV 13 2021 133 complet ed [facility] N TDAP [address] [facility] N COVID-19 (PFIZER), MRNA, LNP-S, PF, 30 MCG/0.3 ML DOSE 3 [address] [facility] N COVID-19 (PFIZER), MRNA, LNP-S, PF, 30 MCG/0.3 ML DOSE 2 2020 208 complet ed [facility] COVID-19 (PFIZER), MRNA, LNP-S, PF, 30 MCG/0.3 ML DOSE 1 2020 208 complet ed [facility] DIV[facility] N INFLUENZA, UNSPECIFIED FORMULATION [address] [facility] N Results Combined list of recent [...] July 03, 2022 02:49 PM Reporting Lab: [facility] [phone] Performing Lab: [facility] [phone] [place] [address] DIVISION LIPID PANEL (STL) TRIGLYCERID E [MASS/VOLUM E] IN SERUM OR PLASMA 96 mg/dL 0 - 150 07/03 Specimen Type: PLASMA Comment: No hemolysis noted. Ordering Provider: RAVIN CASTILLO Report Released Date/Time: July 03, 2022 02:49 PM Reporting Lab: [facility] [phone] Performing Lab: [facility] [phone] [place] [address] DIVISION LIPID PANEL (STL) CHOLESTEROL IN LDL [MASS/VOLUM E] IN SERUM OR PLASMA BY CALCULATION 112 mg/dL 07/03 Specimen Type: PLASMA Comment: No hemolysis noted. Ordering Provider: RAVIN CASTILLO Report Released Date/Time: July 03, 2022 02:49 PM Reporting Lab: [facility] #1 [place] [address] Performing Lab: [facility] #[address] LIPID PANEL (STL) CHOLESTEROL IN HDL [MASS/VOLUM E] IN SERUM OR PLASMA 36 mg/dL 40 07/03 L Specimen Type: PLASMA Comment: No hemolysis noted. Ordering Provider: RAVIN CASTILLO Report Released Date/Time: July 03, 2022 02:49 PM Reporting Lab: [facility]1 [place] [address] Performing Lab: [facility] #[address] DIVISION CBC LEUKOCYTES [#/VOLUME] IN BLOOD BY AUTOMATED COUNT 6.7 10*3/u L 3.6 - 11.2 07/03 Specimen Type: BLOOD No comment entered. Ordering Provider: RAVIN CASTILLO Report Released Date/Time: July 03, 2022 02:49 PM Reporting Lab: [facility]1 [place] [address] Performing Lab: [facility] #[address] DIVISION CBC ERYTHROCYTE S [#/VOLUME] IN BLOOD BY AUTOMATED COUNT 5.16 10*6/u L 4.10 - 5.70 07/03 Specimen Type: BLOOD No comment entered. Ordering Provider: RAVIN CASTILLO Report Released Date/Time: July 03, 2022 02:49 PM Reporting Lab: [facility]1 [place] [address] Performing Lab: [facility] [facility] DIVISION CBC HEMOGLOBIN [MASS/VOLUM E] IN BLOOD 14.4 g/dL 13.1 - 16.8 07/03 Specimen Type: BLOOD No comment entered. Ordering Provider: RAVIN CASTILLO Report Released Date/Time: July 03, 2022 02:49 PM Reporting Lab: [facility]1 [place] [address] Performing Lab: [facility] DIVISION CBC HEMATOCRIT [VOLUME FRACTION] OF BLOOD 43.5 38.2 - 48.4 07/03 Specimen Type: BLOOD No comment entered. Ordering Provider: RAVIN CASTILLO Report Released Date/Time: July 03, 2022 02:49 PM Reporting Lab: [facility]1 [place] [address] Performing Lab: [facility] #[address] DIVISION CBC MCV [ENTITIC VOLUME] BY AUTOMATED COUNT 84.3 fL 80.0 - 100.0 07/03 Specimen Type: BLOOD No comment entered. Ordering Provider: RAVIN CASTILLO Report Released Date/Time: July 03, 2022 02:49 PM Reporting Lab: [facility]1 [place] [address] Performing Lab: [facility] DIVISION CBC MCH [ENTITIC MASS] BY AUTOMATED COUNT 27.9 pg 27.0 - 34.0 07/03 Specimen Type: BLOOD No comment entered. Ordering Provider: RAVIN CASTILLO Report Released Date/Time: July 03, 2022 02:49 PM Reporting Lab: [facility]1 [place] [address] Performing Lab: [facility] #[address] DIVISION CBC MCHC [MASS/VOLUM E] BY AUTOMATED COUNT 33.1 g/dL 33.0 - 36.0 07/03 Specimen Type: BLOOD No comment entered. Ordering Provider: RAVIN CASTILLO Report Released Date/Time: July 03, 2022 02:49 PM Reporting Lab: [facility]1 [place] [address] Performing Lab: [facility] #[address] CBC PLATELETS [#/VOLUME] IN BLOOD BY AUTOMATED COUNT 140 10*3/u L 150 - 400 07/03 L Specimen Type: BLOOD No comment entered. Ordering Provider: RAVIN CASTILLO Report Released Date/Time: July 03, 2022 02:49 PM Reporting Lab: [facility]1 [place] [address] Performing Lab: [facility] #[address] DIVISION CBC PLATELET MEAN VOLUME [ENTITIC VOLUME] IN BLOOD BY AUTOMATED COUNT 11.4 fL 7.5 - 11.2 07/03 H Specimen Type: BLOOD No comment entered. Ordering Provider: RAVIN CASTILLO Report Released Date/Time: July 03, 2022 02:49 PM Reporting Lab: [facility]1 [place] [address] Performing Lab: [facility] #[address] CBC ERYTHROCYTE DISTRIBUTIO N WIDTH [RATIO] BY AUTOMATED COUNT 12.3 11.8 - 15.1 07/03 Specimen Type: BLOOD No comment entered. Ordering Provider: RAVIN CASTILLO Report Released Date/Time: July 03, 2022 02:49 PM Reporting Lab: [facility]1 [place] [address] Performing Lab: [facility] #[address] DIVISION CBC LYMPHOCYTES /100 LEUKOCYTES IN BLOOD BY AUTOMATED COUNT 23 07/03 Specimen Type: BLOOD No comment entered. Ordering Provider: RAVIN CASTILLO Report Released Date/Time: July 03, 2022 02:49 PM Reporting Lab: [facility]1 [place] [address] Performing Lab: [facility] #[address] DIVISION CBC MONOCYTES/1 00 LEUKOCYTES IN BLOOD BY AUTOMATED COUNT 8 07/03 Specimen Type: BLOOD No comment entered. Ordering Provider: RAVIN CASTILLO Report Released Date/Time: July 03, 2022 02:49 PM Reporting Lab: [facility]1 [place] [address] Performing Lab: [facility] #[address] DIVISION CBC NEUTROPHILS /100 LEUKOCYTES IN BLOOD BY AUTOMATED COUNT 67 07/03 Specimen Type: BLOOD No comment entered. Ordering Provider: RAVIN CASTILLO Report Released Date/Time: July 03, 2022 02:49 PM Reporting Lab: [facility]1 [place] [address] Performing Lab: [facility] #[address] DIVISION CBC EOSINOPHILS /100 LEUKOCYTES IN BLOOD BY AUTOMATED COUNT 1 07/03 Specimen Type: BLOOD No comment entered. Ordering Provider: RAVIN CASTILLO Report Released Date/Time: July 03, 2022 02:49 PM Reporting Lab: [facility]1 [place] [address] Performing Lab: [facility] #[address] DIVISION CBC BASOPHILS/1 00 LEUKOCYTES IN BLOOD BY AUTOMATED COUNT 1 07/03 Specimen Type: BLOOD No comment entered. Ordering Provider: RAVIN CASTILLO Report Released Date/Time: July 03, 2022 02:49 PM Reporting Lab: [facility]1 [place] [address] Performing Lab: [facility] #[address] DIVISION CBC LYMPHOCYTES [#/VOLUME] IN BLOOD BY AUTOMATED COUNT 1.52 10*3/u L 0.77 - 4.50 07/03 Specimen Type: BLOOD No comment entered. Ordering Provider: RAVIN CASTILLO Report Released Date/Time: July 03, 2022 02:49 PM Reporting Lab: [facility]1 [place] [address] Performing Lab: [facility] #[address] DIVISION CBC MONOCYTES [#/VOLUME] IN BLOOD BY AUTOMATED COUNT 0.53 10*3/u L 0.19 - 1.50 07/03 Specimen Type: BLOOD No comment entered. Ordering Provider: RAVIN CASTILLO Report Released Date/Time: July 03, 2022 02:49 PM Reporting Lab: [facility]1 [place] [address] Performing Lab: [facility] #[address] DIVISION CBC NEUTROPHILS [#/VOLUME] IN BLOOD BY AUTOMATED COUNT 4.51 10*3/u L 2.10 - 8.00 07/03 Specimen Type: BLOOD No comment entered. Ordering Provider: RAVIN CASTILLO Report Released Date/Time: July 03, 2022 02:49 PM Reporting Lab: [facility]1 [place] [address] Performing Lab: [facility] #[address] DIVISION CBC EOSINOPHILS [#/VOLUME] IN BLOOD BY AUTOMATED COUNT 0.09 10*3/u L 0.00 - 0.60 07/03 Specimen Type: BLOOD No comment entered. Ordering Provider: RAVIN CASTILLO Report Released Date/Time: July 03, 2022 02:49 PM Reporting Lab: [facility]1 [place] [address] Performing Lab: [facility] #[address] DIVISION CBC BASOPHILS [#/VOLUME] IN BLOOD BY AUTOMATED COUNT 0.04 10*3/u L 0.00 - 0.20 07/03 Specimen Type: BLOOD No comment entered. Ordering Provider: RAVIN CASTILLO Report Released Date/Time: July 03, 2022 02:49 PM Reporting Lab: [facility]1 [place] [address] Performing Lab: [facility] #[address] DIVISION CBC PLATELETS RETICULATED /100 PLATELETS IN BLOOD BY AUTOMATED COUNT 5.8 1.0 - 7.0 07/03 Specimen Type: BLOOD No comment entered. Ordering Provider: RAVIN CASTILLO Report Released Date/Time: July 03, 2022 02:49 PM Reporting Lab: [facility]1 [place] [address] Performing Lab: [facility] #[address] DIVISION COMPREHENS ANANTH METABOLIC PANEL CREATININE [MASS/VOLUM E] IN SERUM OR PLASMA 1.08 mg/dL 0.70 - 1.30 07/03 Specimen Type: PLASMA Comment: No hemolysis noted. Ordering Provider: RAVIN CASTILLO Report Released Date/Time: July 03, 2022 02:49 PM Reporting Lab: [facility]1 [place] [address] Performing Lab: [facility] DIVISION [address] DIVISION COMPREHENS ANANTH METABOLIC PANEL UREA NITROGEN [MASS/VOLUM E] IN SERUM OR PLASMA 22 mg/dL 9 - 25 07/03 Specimen Type: PLASMA Comment: No hemolysis noted. Ordering Provider: RAVIN CASTILLO Report Released Date/Time: July 03, 2022 02:49 PM Reporting Lab: [facility]1 [place] [address] Performing Lab: [facility] #[address] DIVISION COMPREHENS ANANTH METABOLIC PANEL GLUCOSE [MASS/VOLUM E] IN SERUM OR PLASMA 110 mg/dL 72 - 99 07/03 H Specimen Type: PLASMA Comment: No hemolysis noted. Ordering Provider: RAVIN CASTILLO Report Released Date/Time: July 03, 2022 02:49 PM Reporting Lab: [facility]1 [place] [address] Performing Lab: [facility] #[address] DIVISION COMPREHENS ANANTH METABOLIC PANEL SODIUM [MOLES/VOLU ME] IN SERUM OR PLASMA 139 meq/L 136 - 145 07/03 Specimen Type: PLASMA Comment: No hemolysis noted. Ordering Provider: RAVIN CASTILLO Report Released Date/Time: July 03, 2022 02:49 PM Reporting Lab: [facility]1 [place] [address] Performing Lab: [facility] #[address] DIVISION COMPREHENS ANANTH METABOLIC PANEL POTASSIUM [MOLES/VOLU ME] IN SERUM OR PLASMA 4.9 meq/L 3.5 - 5.0 07/03 Specimen Type: PLASMA Comment: No hemolysis noted. Ordering Provider: RAVIN CASTILLO Report Released Date/Time: July 03, 2022 02:49 PM Reporting Lab: [facility]1 [place] [address] Performing Lab: [facility] [phone] [place] [address] DIVISION COMPREHENS ANANTH METABOLIC PANEL CHLORIDE [MOLES/VOLU ME] IN SERUM OR PLASMA 104 meq/L 98 - 107 07/03 Specimen Type: PLASMA Comment: No hemolysis noted. Ordering Provider: RAVIN CASTILLO Report Released Date/Time: July 03, 2022 02:49 PM Reporting Lab: [facility]1 [place] [address] Performing Lab: [facility] #[address] [place] [id number] DIVISION COMPREHENS ANANTH METABOLIC PANEL CARBON DIOXIDE, TOTAL [MOLES/VOLU ME] IN SERUM OR PLASMA 26 meq/L 22 - 31 07/03 Specimen Type: PLASMA Comment: No hemolysis noted. Ordering Provider: RAVIN CASTILLO Report Released Date/Time: July 03, 2022 02:49 PM Reporting Lab: [facility]1 [place] [address] Performing Lab: [facility] #[address] DIVISION COMPREHENS ANANTH METABOLIC PANEL CALCIUM [MASS/VOLUM E] IN SERUM OR PLASMA 10.4 mg/dL 8.4 - 10.4 07/03 Specimen Type: PLASMA Comment: No hemolysis noted. Ordering Provider: RAVIN CASTILLO Report Released Date/Time: July 03, 2022 02:49 PM Reporting Lab: [facility] [place] [address] Performing Lab: [facility] #[address] DIVISION COMPREHENS ANANTH METABOLIC PANEL PROTEIN [MASS/VOLUM E] IN SERUM OR PLASMA 7.5 g/dL 6.0 - 8.6 07/03 Specimen Type: PLASMA Comment: No hemolysis noted. Ordering Provider: RAVIN CASTILLO Report Released Date/Time: July 03, 2022 02:49 PM Reporting Lab: [facility] [place] [address] Performing Lab: [facility] #[address] COMPREHENS ANANTH METABOLIC PANEL ALBUMIN [MASS/VOLUM E] IN SERUM OR PLASMA 4.3 g/dL 3.4 - 5.0 07/03 Specimen Type: PLASMA Comment: No hemolysis noted. Ordering Provider: RAVIN CASTILLO Report Released Date/Time: July 03, 2022 02:49 PM Reporting Lab: [facility]1 [place] [address] Performing Lab: [facility] #[address] COMPREHENS ANANTH METABOLIC PANEL BILIRUBIN.T OTAL [MASS/VOLUM E] IN SERUM OR PLASMA 0.8 mg/dL 0.2 - 1.2 07/03 Specimen Type: PLASMA Comment: No hemolysis noted. Ordering Provider: RAVIN CASTILLO Report Released Date/Time: July 03, 2022 02:49 PM Reporting Lab: [facility]1 [place] [address] Performing Lab: [facility] #[address] DIVISION COMPREHENS ANANTH METABOLIC PANEL ALKALINE PHOSPHATASE [ENZYMATIC ACTIVITY/VO LUME] IN SERUM OR PLASMA 84 U/L 40 - 150 07/03 Specimen Type: PLASMA Comment: No hemolysis noted. Ordering Provider: RAVIN CASTILLO Report Released Date/Time: July 03, 2022 02:49 PM Reporting Lab: [facility]1 [place] [address] Performing Lab: [facility] #[address] DIVISION COMPREHENS ANANTH METABOLIC PANEL ASPARTATE AMINOTRANSF ERASE [ENZYMATIC ACTIVITY/VO LUME] IN SERUM OR PLASMA 35 U/L 5 - 34 07/03 H Specimen Type: PLASMA Comment: No hemolysis noted. Ordering Provider: RAVIN CASTILLO Report Released Date/Time: July 03, 2022 02:49 PM Reporting Lab: [facility] [address] Performing Lab: [facility] [phone] DIVISION COMPREHENS ANANTH METABOLIC PANEL ALANINE AMINOTRANSF ERASE [ENZYMATIC ACTIVITY/VO LUME] IN SERUM OR PLASMA 17 U/L 8 - 40 07/03 Specimen Type: PLASMA Comment: No hemolysis noted. Ordering Provider: RAVIN CASTILLO Report Released Date/Time: July 03, 2022 02:49 PM Reporting Lab: [facility] [address] Performing Lab: [facility] [id number] DIVISION COMPREHENS ANANTH METABOLIC PANEL GLOMERULAR FILTRATION RATE/1.73 SQ M.PREDICTED [VOLUME RATE/AREA] IN SERUM, PLASMA OR BLOOD BY CREATININE- BASED FORMULA (CKD-EPI 2020) 69.37 07/03 Specimen Type: PLASMA Comment: No hemolysis noted. Ordering Provider: RAVIN CASTILLO Report Released Date/Time: July 03, 2022 02:49 PM Reporting Lab: [facility] [address] Performing Lab: [facility] [id number] [place] [address] Vital Signs Combined list of inpatient and outpatient Vital Signs from Department of Defense and Veterans Affairs, ranging from 12 months to all on record, depending upon the facility. Vital Sign Value Date Comments Source SYSTOLIC BLOOD PRESSURE 117 07/07/2023 14:12:42 [facility] DIASTOLIC BLOOD PRESSURE 75 07/07/2023 14:12:42 [facility] PULSE OXIMETRY 97 07/07/2023 14:12:42 [facility] WEIGHT 175.7 07/07/2023 14:12:42 [facility] BMI 24 kg/m2 07/07/2023 14:12:42 [facility] PAIN 0 07/07/2023 14:12:42 [facility] TEMPERATURE 98.2 07/07/2023 14:12:42 [facility] PULSE 68 07/07/2023 14:12:42 [facility] RESPIRATION 20 07/07/2023 14:12:42 [facility] Encounters Combined list of: 1) Encounters from Department of Veterans Affairs facilities going backup to the last 18 months, not all VA inpatient encounters are included; 2) Encounters from the Department of [facility] facilities going backup to 280 months. Location Location Details Encounter Type Encounter Number Reason For Visit Attending Provider ADM Date DC Date Status Disposition Source [facility] OFF/OP EST JUNE X REQ PHY/QHP [id number] Diagnos is: ICD-10- CM Z23 Encount er for immuniz ation BIENVENIDO BARLOW M 11/12 [facility] N [facility] OFFICE O/P EST HI 40 MIN [id number] Diagnos is: ICD-10- CM D07.5 Carcino ma in situ of prostat e NARRA,RAVIN B 07/06 [facility] Outpatient Encounter [id number] 07/13 [facility] Outpatient Encounter [id number] GRAEME LYNN 04/07 [facility] N Social History Combined list of available smoking, tobacco, and other social history from Department of Defense and Veterans Affairs facilities. Social History Type Response Date Comment Sourc e Tobacco smoking status NHIS VA-TOBACCO FORMER USER 07/07/2023 [facility] History of tobacco use VA-TOBACCO QUIT 1 5 YRS OR MORE 07/07/2023 [facility] History of tobacco use VA-TOBACCO NEVER USED 06/24/2022 [facility] History of tobacco use VA-TOBACCO FORMER USER 04/02/2021 [facility] History of tobacco use [place] QU[place] 1 5 YRS OR MORE 04/27/2020 [facility] Plan of Care List of future care activities from Department of [facility] Affairs facilities. Additional future care activities may be listed in the Assessment and Plan section. Date/Time Care Activity Care Activity Detail Facili ty 06/09/2024 AMBULATORY - MEDICINE AMBULATORY - MEDICI NE [facility] 06/29/2024 AMBULATORY - SURGERY AMBULATORY - SURGERY [facility]
--- OUTSIDE RECORDS SUMMARY | 2024-04-12 16:57 | XMS_ITS | Encounter Summary ---
Author Name [facility] [place] [facility] [place] Address [address] [place] [address] Care Team Providers Care Welcome Hostess Name Role Phone RAVIN CASTILLO Primary Care [...] Eaton's Name Patient's Relationship to Policy Eaton [facility] (R) MEDICARE ADVANTAGE [facility] ([facility]) Feb 23, 2021 [id number] [phone] SMART,PH ILLIP PATIENT [facility] (WNR) MEDICARE ADVANTAGE [facility] ([facility]) Feb 23, 2021 [id number] SMART,PH ILLIP PATIENT [employer] [place] Feb 23, 2021 [id number] SMART,PH ILLIP PATIENT MEDICARE (WN) MEDICARE (M) PART A Oct 24, 2006 PART A [id number] [phone] SMART,PH ILLIP PATIENT MEDICARE (WNR) MEDICARE (M) PART B Oct 24, 2006 PART B [id number] SMART,PH ILLIP PATIENT [facility] (WNR) MEDICARE ADVANTAGE [facility] ([facility]) Feb 23, 2021 [id number] KAREN SMART PATIENT Selected Encounter This section includes the information on record at [place] for the Encounter. Date/Time Encounter Type Encounter Description Reason Provider Source Apr 07, 2024 01:13 PM Outpatient Encounter GENERAL INTERNAL MEDICINE [facility] [place] Encounter Template Text not used by [place] Plan of Treatment: Future Appointments (+ 6 months) and Future Tests (+/- 45 days) The Plan of Treatment section includes future care activities for the patient from all [place] [facility]. This section includes future appointments and future orders which are active, pending or scheduled. Future Appointments This section includes appointments that were scheduled to occur 6 months from the date of the Encounter, up to a maximum of 20 appointments. The data comes from all [place] treatment facilities. Appointment Date/Time Appointment Type Appointme nt Facility Name Jun 09, 2024 02:00 PM AMBULATORY - MEDICINE [facility] June 29, 2024 02:00 PM AMBULATORY - SURGERY [facility] Social History: Smoking Status (Most current) and Tobacco Use (All prior to encounter date) This section includes the most current, and the historical, smoking and tobacco- related health factors from the [place] facility where the Encounter took place. Current Smoking Status This section includes the most current smoking, or tobacco-related health factor, from the [place] facility where the Encounter took place. Date/Time Current Smoking Status Comment Cara ity June 24, 2022 11:20 AM [place] NEVER USED [facility] Tobacco Use History This section includes a history of the smoking, or tobacco-related health factors, that were collected on or before the date of the Encounter. The data comes from the [place] facility where the Encounter took place. Date/Time Smoking Status/Tobacco Use Comment F acility Apr 27, 2020 10:21 AM [place]TO[place]AC[place] FORMER USER [facility] Apr 27, 2020 10:21 AM [place] QUIT 15 YRS OR MORE [facility] Encounter Notes: All associated encounter notes This section contains the clinical notes associated to the Encounter. Date/Time Encounter Note(s) Provider Source Apr 03, 2024 01:13 PM NONVA NOTE: LOCAL TITLE: [facility] SELF PRESENTING CARE COORD PLAN STANDARD TITLE: NONVA NOTE DATE OF NOTE: APR 03, 2024@13:13 ENTRY DATE: APR 07, 2024@13:13:34 AUTHOR: GRAEME LYNN EXP COSIGNER: URGENCY: STATUS: COMPLETED Emergency Notification Intake Date Presenting to the Facility: Mar Method of Contact: Submitted to Centralized Call Center Notification ID: [id number] [facility] Referral #: [id number] Clinical Review [facility] Name: Hospital: [facility] Address: City: [place] State: [place] Zip Code: Phone : [facility] Point of Contact: Name: Phone: Chief complaint: ILEUS Primary Diagnosis: Disposition Admitted Route of Admission: Date of Admission: Mar Admitting Diagnosis: ILEUS [facility] Provider: Confirm Level of Care: EXCERPT FROM HOSPITAL NOTE BELOW Currently hospitalized. Per most recent progress note: This is an 83-year-old male with history of stroke, Parkinson, coronary artery disease, heart failure with mildly reduced ejection fraction, paroxysmal atrial fibrillation, hypertension, deep venous thrombosis, pulmonary embolism, prostate cancer, iron deficiency anemia, and daily alcohol use who is being directly admitted to the medical floor from a swing bed at [facility] for general surgery consultation due to unresolving large bowel ileus versus possible obstruction. The abdomen is understandably uncomfortable when bloated and he has frequent nausea and has had several episodes of nonbloody and nonbilious emesis. When he is finally able to have a bowel movement and pass gas, the bloating seems to resolve. Over the course of the last week, he has had [address] scans and several KUBs which continue to show findings of mild distal sigmoid colitis and proctitis and large bowel ileus despite conservative treatment including bowel rest and NG tube decompression (the NG tube was removed a few days ago after he had multiple bowel movements). It appears all narcotics have been held. At the time my evaluation he is very uncomfortable due to abdominal distension. He complains of pain in the left hip but states he has been working with therapy and seems to be progressing in that regard. He is passing gas and is having small amounts of loose stools. His potassium was 2.3 this morning and repeat electrolytes are currently pending. Monitor on telemetry for now. Anticipated postacute care needs:gi Records sent to [facility] for expedited upload. [facility] alerted via [facility] for eligibility review. No further records available. Alerting PCP team to this note for continuity of care. /kang/ GRAEME SANTANA RN REGISTERED NURSE Signed: 04/07/2024 13:34 Receipt Acknowledged By: 04/07/2024 16:23 /es/ Melody Law MD STAFF PHYSICIAN for RAVIN CASTILLO 04/08/2024 11:11 /kang/ MAX SHEPPARD, RN REGISTERED NURSE GRAEME LYNN [facility]
--- NOTE | 2024-04-12 17:00 | ADMGEN ---
This patient, Eren Kulkarni, was admitted to 2nd Floor Room 209-1. Patient/family oriented to hospital policies and general routines including ID bracelet, bed and alarms, visiting hours, pain management, procedures, bathroom and other care routines, personal items, smoking policy, room service/diet, and visiting hours. Information on how to activate the Rapid Response Team has been discussed. Patient/Family are encouraged to report perceived risks to care and to ask questions if they do not understand what they are told or what they should do.
[2024-04-12 17:15] VITALS: BP 120/52; PULSE 64; RESP 18; TEMP 36.4; O2SAT 98
[2024-04-12 17:39] VITALS: BMI 24.1
[2024-04-12 20:31] VITALS: PULSE 78
[2024-04-12] MEDS: SIMETHICONE 80 MG TAB.CHEW PO (20:31)
[2024-04-12] MEDS: APIXABAN 2.5 MG TABLET 5 MG BY MOUTH (20:31)
[2024-04-12] MEDS: carvediloL 1.56 MG TABLET PO (20:31)
[2024-04-13] VITALS: BP 105/50; PULSE 78; RESP 16; TEMP 36.2; O2SAT 97
[2024-04-13 05:42] LABS: Potassium 3.3 mmol/L (3.5-5.1)
[2024-04-13 08:00] VITALS: BP 99/42; PULSE 42; RESP 16; TEMP 36.6; O2SAT 99
[2024-04-13 08:14] VITALS: PULSE 42
[2024-04-13] MEDS: POTASSIUM CHLORIDE 20 MEQ PACKET (FOR LIQUID) 40 MEQ PO ×2 (09:01→17:04)
[2024-04-13] MEDS: METOCLOPRAMIDE HCL 10 MG TABLET PO ×2 (09:02→17:04)
[2024-04-13] MEDS: MAGNESIUM HYDROXIDE SUSP 30 ML UDC PO ×2 (09:02→17:04)
[2024-04-13] MEDS: SACCHAROMYCES BOULARDII 250 MG CAPSULE PO ×3 (09:02→17:04)
[2024-04-13] MEDS: SIMETHICONE 80 MG TAB.CHEW PO ×4 (09:02→21:09)
[2024-04-13] MEDS: APIXABAN 2.5 MG TABLET 5 MG BY MOUTH ×2 (09:02→21:09)
[2024-04-13] MEDS: FAMOTIDINE 20 MG TABLET PO (09:02)
[2024-04-13] MEDS: FUROSEMIDE 20 MG TABLET PO (09:02)
[2024-04-13] MEDS: HYDROCORTISONE ACETATE 25 MG SUPPOSITORY RECTAL (09:03)
[2024-04-13] MEDS: THERAPEUTIC MULTIVITAMINS/MINERALS TAB (*BKC) 1 TABLET PO (09:03)
[2024-04-13] MEDS: FOLIC ACID 1 MG TABLET PO (09:03)
--- NOTE | 2024-04-13 10:14 | PM.IMHP ---
H&P: HPI History of Present Illness Date/Time: 04/13/24 10:14 Chief Complaint: physical deconditioning weakness Narrative: This is an 83-year-old male with significant past medical history of AFib, cardiac arrest, GERD, DVT, alcoholism, Parkinson's, skin cancer, pulmonary embolism, arthritis, heart failure with reduced ejection fraction, history of TAVR and cardiac pacemaker, history of cataracts with extraction who presented to [place] swing bed program for additional rehab needs. Patient presented from [facility] after being hospitalized for abdominal distention and low potassium. He was found to have a large bowel ileus. General surgery and GI were following. Patient ileus resolved with bowel regimen and no surgical intervention was required. GI would like to do a colonoscopy on an outpatient basis in 6 weeks. prior to that hospitalization he was at [facility] in the swing bed program from a previous hospitalization at [facility] from 03/04/2024 through 03/16/2024 after sustaining a a ground level fall and fracturing his left femur . He had an ORIF of his left femur intratrochanteric fracture with cephalomedullary nail with Dr. Brenner 03/08/2024. While at [facility] he received PT and OT who recommended swing bed program for additional rehab needs here at [facility]. Review of Systems Review of Systems: All systems reviewed & are unremarkable except as noted in HPI and below PMFSH Past Medical History Medical History Heart failure with reduced ejection fraction Chronic anticoagulation Paroxysmal atrial fibrillation Cardiac arrest (01/2021) V-tach/torsades Gastroesophageal reflux disease Deep venous thrombosis Alcoholism Parkinsons disease Skin cancer Fatty liver Skull fracture Arthritis Pneumonia Pulmonary embolism (01/2021) Seasonal allergies Surgical History Surgical History History of cataract extraction History of open reduction and internal fixation (ORIF) procedure (02/2024) repair left hip fracture with cephalomedullary nail History of local excision of skin lesion 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 Code status: Full code. Smoking packs per day: 1 Smoking cigarettes per day: 20.0 Years smoked: 20 Smoking pack-years: 20.00 Smoking status: Never smoker Second hand tobacco smoke exposure: No Additional smoking assessment comments: quit in 1971 Alcohol intake: never Drinks per week: 7 Substance use: never Substance use type: does not use Do You Feel Safe in your Home?: Yes Lack of Transportation: No Lack of Food: Never True Current Housing: I Have Housing Concerned About Future Housing: No Difficulty Paying Gas/Electric Bills: No Difficulty Paying for Meds: No Currently Unemployed: No Education: Master's Degree or Higher Difficulty w/ Childcare or Family Care: No Living arrangements: with family Additional living arrangements comments: Lives with in [place]. Occupation/Education: retired Spiritual care concerns: No Agree to blood products: Yes Meds Home Medications and Allergies Home Medications ?Medication ?Instructions ?Recorded ?Confirmed ?Type apixaban 5 mg tablet 5 mg PO BID 05/23/21 04/12/24 History famotidine 10 mg tablet 20 mg PO DAILY 05/23/21 04/12/24 History folic acid 1 mg tablet 1 mg PO DAILY 05/23/21 04/12/24 History multivitamin-iron 9 mg-folic acid 1 tablet PO DAILY 05/23/21 04/12/24 History 400 mcg-calcium and minerals tablet (Thera-M) sacubitril 24 mg-valsartan 26 mg 1 tablet PO BID 05/23/21 04/12/24 History tablet carvedilol 3.125 mg tablet 1.56 mg PO Q12H 12/24/21 04/12/24 History hyoscyamine sulfate 0.125 mg 0.125 mg sublingual QID PRN 03/13/22 04/12/24 Rx sublingual tablet dyspepsia #120 tabs furosemide 20 mg tablet 20 mg PO QAM 30 days #0 tabs 03/16/24 04/12/24 Rx Saccharomyces boulardii 250 mg 250 mg PO TID #10 caps 04/03/24 04/12/24 Rx capsule (Florastor) magnesium hydroxide 400 mg/5 mL 30 ml PO BID #355 mL 04/03/24 04/12/24 Rx oral suspension (Milk of Magnesia) metoclopramide HCl 10 mg tablet 10 mg PO BID #10 tabs 04/03/24 04/12/24 Rx (Reglan) crubdcet-xwyixrypxg-fhdxcyidp 1 applic topical DAILY 04/03/24 04/12/24 History topical packet potassium chloride 20 mEq oral 40 meq PO BID 04/03/24 04/12/24 History packet simethicone 80 mg chewable tablet 80 mg PO QID #10 tabs 04/03/24 04/12/24 Rx hydrocortisone acetate 25 mg 25 mg RECTAL DAILY #24 ea 04/12/24 04/12/24 Rx rectal suppository (Anusol-HC) polyethylene glycol 3350 17 gram 17 g PO QAM PRN Constipation #30 ea 04/12/24 04/12/24 Rx oral powder packet (Miralax) Allergies Allergy/AdvReac Type Severity Reaction Status Date / Time No Known Allergies Allergy Unknown Verified 10/23/22 11:41 Vital Signs Vital Signs - 24 hr 04/12/24 17:15 04/12/24 20:31 04/13/24 00:00 Temperature 97.5 F L 97.2 F L Pulse Rate 64 78 78 Respiratory Rate 18 16 Blood Pressure 120/52 L 105/50 L Pulse Oximetry 98 97 Oxygen Delivery Room Air Room Air 04/13/24 08:14 Temperature Pulse Rate 42 L Respiratory Rate Blood Pressure Pulse Oximetry Oxygen Delivery Exam Narrative: General: In no acute distress, well nourished Head: atraumatic, no encephalopathy Eyes PERRLA, sclera clear ENT: moist mucous membranes, nasal passages clear Neck: supple, no JVD, no adenopathy, trachea midline Cardiac: Normal S1 and S2. No murmur, gallops or friction rubs, peripheral pulses intact. Respiratory: Lungs clear to auscultation, no adventitious lung sounds Gastrointestinal: soft, mildly distended, mildly tender, hyperactive bowel sounds. : voiding without difficulty. Extremities: moves all extremities well, no edema Skin: healing incision to left hip Neuro: Alert and oriented x4, cranial nerves intact, no neuro deficits. Psych: normal mood, normal affect, interactive H&P: Results Labs Labs: [facility] 04/13/24 05:21 Potassium 3.3 L Assessment and Plan Assessment and plan (1) Weakness: Code(s): R53.1 - Weakness Status: Acute Assessment and Plan: Status post ORIF of left femur fracture from 03/08/[address] Brenner continue PT and OT continue fall precautions (2) Heart failure with reduced ejection fraction: Code(s): I50.20 - Unspecified systolic (congestive) heart failure Status: Acute Assessment and Plan: continue Lasix, carvedilol, Entresto (3) Paroxysmal atrial fibrillation: Code(s): I48.0 - Paroxysmal atrial fibrillation Status: Acute Assessment and Plan: continue Coreg and Eliquis (4) Thrombocytopenia: Code(s): D69.6 - Thrombocytopenia, unspecified Status: Acute Assessment and Plan: continue folic acid (5) Pressure injury: Code(s): L89.90 - Pressure ulcer of unspecified site, unspecified stage Status: Acute Assessment and Plan: bilateral heel pressure injuries left heel is dry and healing right heel apply Betadine daily continue to float heels (6) Hypokalemia: Code(s): E87.6 - Hypokalemia Status: Acute Assessment and Plan: potassium 3.3 continue 40 mEq p.o. b.i.d. (7) Proctocolitis: Code(s): K52.9 - Noninfective gastroenteritis and colitis, unspecified Status: Acute Assessment and Plan: distended today on examination will give Dulcolax suppository
[2024-04-13 16:00] VITALS: BP 104/62; PULSE 83; RESP 18; TEMP 36.9; O2SAT 99
[2024-04-13] MEDS: SACUBITRIL/VALSARTAN 24-26 MG TABLET 1 TAB PO (17:04)
[2024-04-13 21:09] VITALS: PULSE 70
[2024-04-13] MEDS: carvediloL 1.56 MG TABLET PO (21:09)
[2024-04-14] VITALS: BP 103/49; PULSE 70; RESP 16; TEMP 36.1; O2SAT 96
[2024-04-14 08:00] VITALS: BP 114/60; PULSE 56; RESP 18; TEMP 36.6; O2SAT 97
[2024-04-14] MEDS: HYDROCORTISONE ACETATE 25 MG SUPPOSITORY RECTAL (09:26)
[2024-04-14] MEDS: POTASSIUM CHLORIDE 20 MEQ PACKET (FOR LIQUID) 40 MEQ PO ×2 (09:27→17:38)
[2024-04-14] MEDS: SIMETHICONE 80 MG TAB.CHEW PO ×4 (09:27→20:17)
[2024-04-14] MEDS: METOCLOPRAMIDE HCL 10 MG TABLET PO ×2 (09:27→17:39)
[2024-04-14] MEDS: FUROSEMIDE 20 MG TABLET PO (09:27)
[2024-04-14] MEDS: APIXABAN 2.5 MG TABLET 5 MG BY MOUTH ×2 (09:27→20:17)
[2024-04-14] MEDS: SACCHAROMYCES BOULARDII 250 MG CAPSULE PO ×3 (09:27→17:39)
[2024-04-14 09:28] VITALS: PULSE 72
[2024-04-14] MEDS: carvediloL 1.56 MG TABLET PO ×2 (09:28→20:17)
[2024-04-14] MEDS: SACUBITRIL/VALSARTAN 24-26 MG TABLET 1 TAB PO ×2 (09:28→17:39)
[2024-04-14] MEDS: FAMOTIDINE 20 MG TABLET PO (09:28)
[2024-04-14] MEDS: NEOMYCIN/POLYMYXIN/BACITRACIN OINTMENT 15 GM TUBE 1 APPLIC TOPICAL (09:29)
[2024-04-14 10:54] LABS: Anion Gap 6 mmol/L (4-12); Blood Urea Nitrogen 19 mg/dL (7-18); Calcium 8.7 mg/dL (8.5-10.1); Carbon Dioxide 27 mmol/L (21-32); Chloride 108 mmol/L (98-108); Estimated CRCL calculation 65 ml/min; Estimated Glomerular Filt Rate > 60; Glucose 108 mg/dL (70-99); Osmolality Calculated 295 mOsm/kg (285-295); Potassium 4.4 mmol/L (3.5-5.1); Sodium 141 mmol/L (136-145)
--- NOTE | 2024-04-14 11:11 | PC.NURSE ---
at this time does want to have anything that might give loose stools or upset stomach immediately up on taking, like mom, mvi, folic acid, health shakes, and jueven. hopefully wants to add slowly after stool slow down and stomach settles. had him with assist to br and had large amt of loud gas and loose stool in [facility]. prior to going to bed.
--- NOTE | 2024-04-14 14:52 | PM.EVENT ---
Event Note Event Note Event Note: Subjective: Patient reporting multiple bowel movements overnight. His abdomen is less distended today. Exam: General: In no acute distress Cardiac: Normal S1 and S2. No murmur, gallops or friction rubs, peripheral pulses intact. Respiratory: Lungs clear to auscultation, no adventitious lung sounds Gastrointestinal: soft, non distended, mildly tender, normoactive bowel sounds. : voiding without difficulty. Skin: healing incision to left hip Neuro: Alert and oriented x4 Plan: Will stop oral supplements. holding folic acid, and multivitamin per request. Continue PT and OT
[2024-04-14 16:00] VITALS: BP 124/72; PULSE 72; RESP 18; TEMP 36.6; O2SAT 96
[2024-04-14 20:00] VITALS: PULSE 78; RESP 18; O2SAT 96
[2024-04-14 20:17] VITALS: PULSE 78
[2024-04-14] MEDS: ACETAMINOPHEN 325 MG TABLET 650 MG PO (20:17)
[2024-04-15] VITALS: BP 105/47; PULSE 78; RESP 16; TEMP 36.3; O2SAT 98
[2024-04-15 06:05] LABS: Alanine Aminotransferase 14 U/L (16-63); Albumin Level 2.6 g/dL (3.4-5.0); Alkaline Phosphatase 124 U/L (46-116); Anion Gap 7 mmol/L (4-12); Aspartate Amino Transferase 19 U/L (15-37); Bilirubin,Total 0.4 mg/dL (0.00-1.00); Blood Urea Nitrogen 11 mg/dL (7-18); Calcium 8.3 mg/dL (8.5-10.1); Carbon Dioxide 27 mmol/L (21-32); Chloride 109 mmol/L (98-108); Estimated CRCL calculation 74 ml/min; Estimated Glomerular Filt Rate > 60; Glucose 97 mg/dL (70-99); Osmolality Calculated 295 mOsm/kg (285-295); Potassium 3.7 mmol/L (3.5-5.1); Prostate Specific Antigen 2.2 ng/mL (< OR = 4.0); Sodium 143 mmol/L (136-145); Total Protein 5.8 g/dL (6.4-8.2)
[2024-04-15 08:00] VITALS: BP 98/74; PULSE 80; RESP 20; TEMP 36.6; O2SAT 97
[2024-04-15 09:47] VITALS: PULSE 76
[2024-04-15] MEDS: APIXABAN 2.5 MG TABLET 5 MG BY MOUTH ×2 (09:47→20:39)
[2024-04-15] MEDS: METOCLOPRAMIDE HCL 10 MG TABLET PO ×2 (09:47→17:16)
[2024-04-15] MEDS: SIMETHICONE 80 MG TAB.CHEW PO ×4 (09:47→20:41)
[2024-04-15] MEDS: SACCHAROMYCES BOULARDII 250 MG CAPSULE PO ×3 (09:47→17:16)
[2024-04-15] MEDS: carvediloL 1.56 MG TABLET PO ×2 (09:47→20:40)
[2024-04-15] MEDS: FUROSEMIDE 20 MG TABLET PO (09:47)
[2024-04-15] MEDS: FAMOTIDINE 20 MG TABLET PO (09:47)
[2024-04-15] MEDS: NEOMYCIN/POLYMYXIN/BACITRACIN OINTMENT 15 GM TUBE 1 APPLIC TOPICAL (09:48)
[2024-04-15] MEDS: SACUBITRIL/VALSARTAN 24-26 MG TABLET 1 TAB PO ×2 (09:48→17:16)
[2024-04-15] MEDS: POTASSIUM CHLORIDE 20 MEQ PACKET (FOR LIQUID) 40 MEQ PO ×2 (09:48→17:16)
[2024-04-15 16:00] VITALS: BP 104/74; PULSE 74; RESP 19; TEMP 36.1; O2SAT 97
[2024-04-15 20:40] VITALS: PULSE 60
[2024-04-16] VITALS: BP 122/60; PULSE 60; RESP 16; TEMP 36.5; O2SAT 97
[2024-04-16 08:00] VITALS: BP 100/62; PULSE 74; RESP 16; TEMP 36.4; O2SAT 99
[2024-04-16] MEDS: POTASSIUM CHLORIDE 20 MEQ PACKET (FOR LIQUID) 40 MEQ PO ×2 (09:25→17:26)
[2024-04-16 09:26] VITALS: PULSE 74
[2024-04-16] MEDS: APIXABAN 2.5 MG TABLET 5 MG BY MOUTH ×2 (09:26→21:00)
[2024-04-16] MEDS: METOCLOPRAMIDE HCL 10 MG TABLET PO ×2 (09:26→17:27)
[2024-04-16] MEDS: carvediloL 1.56 MG TABLET PO ×2 (09:26→20:54)
[2024-04-16] MEDS: SACUBITRIL/VALSARTAN 24-26 MG TABLET 1 TAB PO ×2 (09:26→17:27)
[2024-04-16] MEDS: FUROSEMIDE 20 MG TABLET PO (09:26)
[2024-04-16] MEDS: SACCHAROMYCES BOULARDII 250 MG CAPSULE PO ×3 (09:26→17:28)
[2024-04-16] MEDS: FAMOTIDINE 20 MG TABLET PO (09:26)
[2024-04-16] MEDS: HYDROCORTISONE ACETATE 25 MG SUPPOSITORY RECTAL (09:26)
[2024-04-16] MEDS: SIMETHICONE 80 MG TAB.CHEW PO ×4 (09:27→21:00)
[2024-04-16 16:00] VITALS: BP 110/64; PULSE 88; RESP 17; TEMP 36.4; O2SAT 97
[2024-04-16 20:54] VITALS: PULSE 78
[2024-04-17] VITALS: BP 115/55; PULSE 78; RESP 16; TEMP 36.6; O2SAT 97
[2024-04-17 07:22] LABS: Potassium 3.7 mmol/L (3.5-5.1)
[2024-04-17 08:00] VITALS: BP 102/50; PULSE 85; RESP 18; TEMP 36.2; O2SAT 99
[2024-04-17 09:09] VITALS: PULSE 85
[2024-04-17] MEDS: METOCLOPRAMIDE HCL 10 MG TABLET PO ×2 (09:09→17:44)
[2024-04-17] MEDS: carvediloL 1.56 MG TABLET PO ×2 (09:09→20:53)
[2024-04-17] MEDS: FAMOTIDINE 20 MG TABLET PO (09:09)
[2024-04-17] MEDS: SACCHAROMYCES BOULARDII 250 MG CAPSULE PO ×2 (09:09→17:44)
[2024-04-17] MEDS: APIXABAN 2.5 MG TABLET 5 MG BY MOUTH ×2 (09:09→20:52)
[2024-04-17] MEDS: FUROSEMIDE 20 MG TABLET PO (09:09)
[2024-04-17] MEDS: SACUBITRIL/VALSARTAN 24-26 MG TABLET 1 TAB PO ×2 (09:09→17:44)
[2024-04-17] MEDS: POTASSIUM CHLORIDE 20 MEQ PACKET (FOR LIQUID) 40 MEQ PO ×2 (09:09→17:44)
[2024-04-17] MEDS: SIMETHICONE 80 MG TAB.CHEW PO ×3 (09:10→20:53)
[2024-04-17] MEDS: HYDROCORTISONE ACETATE 25 MG SUPPOSITORY RECTAL (09:24)
[2024-04-17 16:00] VITALS: BP 127/49; PULSE 76; RESP 18; TEMP 36.4; O2SAT 98
[2024-04-17 23:53] VITALS: BP 110/61; PULSE 80; RESP 16; TEMP 36.6; O2SAT 96
[2024-04-18 08:00] VITALS: BP 109/53; PULSE 84; RESP 16; TEMP 36.3; O2SAT 99
[2024-04-18] MEDS: SACCHAROMYCES BOULARDII 250 MG CAPSULE PO ×3 (09:05→17:09)
[2024-04-18] MEDS: POTASSIUM CHLORIDE 20 MEQ PACKET (FOR LIQUID) 40 MEQ PO ×2 (09:05→16:56)
[2024-04-18] MEDS: SACUBITRIL/VALSARTAN 24-26 MG TABLET 1 TAB PO ×2 (09:06→16:57)
[2024-04-18] MEDS: SIMETHICONE 80 MG TAB.CHEW PO ×4 (09:06→21:01)
[2024-04-18] MEDS: APIXABAN 2.5 MG TABLET 5 MG BY MOUTH ×2 (09:06→21:01)
[2024-04-18] MEDS: FAMOTIDINE 20 MG TABLET PO (09:06)
[2024-04-18 09:07] VITALS: PULSE 84
[2024-04-18] MEDS: carvediloL 1.56 MG TABLET PO ×2 (09:07→21:01)
[2024-04-18] MEDS: METOCLOPRAMIDE HCL 10 MG TABLET PO ×2 (09:07→16:58)
[2024-04-18] MEDS: FUROSEMIDE 20 MG TABLET PO (09:08)
[2024-04-18] MEDS: HYDROCORTISONE ACETATE 25 MG SUPPOSITORY RECTAL (09:09)
[2024-04-18] MEDS: NEOMYCIN/POLYMYXIN/BACITRACIN OINTMENT 15 GM TUBE 1 APPLIC TOPICAL (09:10)
[2024-04-18 16:00] VITALS: BP 98/48; PULSE 64; RESP 16; TEMP 36.2; O2SAT 97
[2024-04-18 21:01] VITALS: PULSE 60
[2024-04-18] MEDS: ACETAMINOPHEN 325 MG TABLET 650 MG PO (21:01)
[2024-04-19] VITALS: BP 121/60; PULSE 84; RESP 16; TEMP 36.3; O2SAT 95
[2024-04-19 05:45] LABS: Potassium 4.3 mmol/L (3.5-5.1)
[2024-04-19 08:00] VITALS: BP 106/63; PULSE 76; RESP 16; TEMP 36.2; O2SAT 97
[2024-04-19] MEDS: POTASSIUM CHLORIDE 20 MEQ PACKET (FOR LIQUID) 40 MEQ PO ×2 (09:07→17:21)
[2024-04-19 09:08] VITALS: PULSE 74
[2024-04-19] MEDS: METOCLOPRAMIDE HCL 10 MG TABLET PO ×2 (09:08→17:22)
[2024-04-19] MEDS: carvediloL 1.56 MG TABLET PO ×2 (09:08→20:46)
[2024-04-19] MEDS: FUROSEMIDE 20 MG TABLET PO (09:08)
[2024-04-19] MEDS: HYDROCORTISONE ACETATE 25 MG SUPPOSITORY RECTAL (09:08)
[2024-04-19] MEDS: FAMOTIDINE 20 MG TABLET PO (09:09)
[2024-04-19] MEDS: SIMETHICONE 80 MG TAB.CHEW PO ×4 (09:09→20:47)
[2024-04-19] MEDS: APIXABAN 2.5 MG TABLET 5 MG BY MOUTH ×2 (09:10→20:47)
[2024-04-19] MEDS: SACCHAROMYCES BOULARDII 250 MG CAPSULE PO ×3 (09:10→17:22)
[2024-04-19] MEDS: SACUBITRIL/VALSARTAN 24-26 MG TABLET 1 TAB PO ×2 (09:10→17:22)
[2024-04-19] MEDS: NEOMYCIN/POLYMYXIN/BACITRACIN OINTMENT 15 GM TUBE 1 APPLIC TOPICAL (09:11)
--- NOTE | 2024-04-19 14:28 | PC.NURSE ---
Dressings changed to bilateral heels. Patient tolerated well.
[2024-04-19 16:00] VITALS: BP 112/55; PULSE 70; RESP 16; TEMP 36.7; O2SAT 96
[2024-04-19 20:00] VITALS: PULSE 80; RESP 16; O2SAT 97
[2024-04-19 20:46] VITALS: PULSE 75
[2024-04-20] VITALS: PULSE 80; RESP 16; TEMP 36.3; O2SAT 97
[2024-04-20 08:00] VITALS: BP 120/60; PULSE 80; RESP 14; TEMP 36.6; O2SAT 97
[2024-04-20] MEDS: MAGNESIUM HYDROXIDE SUSP 30 ML UDC PO (08:39)
[2024-04-20] MEDS: METOCLOPRAMIDE HCL 10 MG TABLET PO (08:40)
[2024-04-20] MEDS: APIXABAN 2.5 MG TABLET 5 MG BY MOUTH (08:40)
[2024-04-20] MEDS: POTASSIUM CHLORIDE 20 MEQ PACKET (FOR LIQUID) 40 MEQ PO (08:40)
[2024-04-20] MEDS: FAMOTIDINE 20 MG TABLET PO (08:41)
[2024-04-20] MEDS: SACUBITRIL/VALSARTAN 24-26 MG TABLET 1 TAB PO (08:41)
[2024-04-20] MEDS: SIMETHICONE 80 MG TAB.CHEW PO (08:41)
[2024-04-20] MEDS: FUROSEMIDE 20 MG TABLET PO (08:41)
[2024-04-20] MEDS: SACCHAROMYCES BOULARDII 250 MG CAPSULE PO (08:41)
[2024-04-20 08:42] VITALS: PULSE 68
[2024-04-20] MEDS: THERAPEUTIC MULTIVITAMINS/MINERALS TAB (*BKC) 1 TABLET PO (08:42)
[2024-04-20] MEDS: carvediloL 1.56 MG TABLET PO (08:42)
[2024-04-20] MEDS: HYDROCORTISONE ACETATE 25 MG SUPPOSITORY RECTAL (08:42)
[2024-04-20] MEDS: NEOMYCIN/POLYMYXIN/BACITRACIN OINTMENT 15 GM TUBE 1 APPLIC TOPICAL (08:42)
[2024-04-20] MEDS: FOLIC ACID 1 MG TABLET PO (08:42)
--- NOTE | 2024-04-20 09:22 | P.DS_ITS ---
DS: Admitting Diagnosis Discharge Date 04/20/2024 Admitting Diagnosis Generalized weakness secondary to extended hospitalization due to left femur fracture and paralytic ileus for rehabilitation DS: Discharge Diagnosis Discharge Diagnosis (1) Weakness: Code(s): R53.1 - Weakness Status: Acute Assessment and Plan: * Status post ORIF of left femur fracture from 03/08/[address] Brenner * home health services * continue fall precautions (2) Heart failure with reduced ejection fraction: Code(s): I50.20 - Unspecified systolic (congestive) heart failure Status: Acute Assessment and Plan: * continue Lasix, carvedilol, Entresto (3) Paroxysmal atrial fibrillation: Code(s): I48.0 - Paroxysmal atrial fibrillation Status: Acute Assessment and Plan: * continue Coreg and Eliquis (4) Thrombocytopenia: Code(s): D69.6 - Thrombocytopenia, unspecified Status: Acute Assessment and Plan: * continue folic acid (5) Pressure injury: Code(s): L89.90 - Pressure ulcer of unspecified site, unspecified stage Status: Acute Assessment and Plan: * bilateral heel pressure injuries * left heel is dry and healing * right heel apply Betadine daily * continue to float heels * follow-up with wound clinic outpatient (6) Hypokalemia: Code(s): E87.6 - Hypokalemia Status: Acute Assessment and Plan: * continue 40 mEq p.o. b.i.d. (7) Proctocolitis: Code(s): K52.9 - Noninfective gastroenteritis and colitis, unspecified Status: Acute Assessment and Plan: * resume MiraLax p.r.n. * Dulcolax suppository p.r.n. * follow-up with GI outpatient to schedule sigmoidoscopy Plan disposition: discharge to home with home health services DS: Summary Hospital Course Reason for hospitalization: Generalized weakness secondary to extended hospitalization due to left femur fracture and paralytic ileus for rehabilitation Hospital Course: This was an 83-year-old male with significant past medical history of AFib, cardiac arrest, GERD, DVT, alcoholism, Parkinson's, skin cancer, pulmonary embolism, arthritis, heart failure with reduced ejection fraction, history of TAVR and cardiac pacemaker, history of cataracts with extraction who presented to [facility] for additional rehab needs. Patient presented from [facility] after being hospitalized for abdominal distention and low potassium. He was found to have a large bowel ileus. General surgery and GI were following. Patient ileus resolved with bowel regimen and no surgical intervention was required. GI would like to do a colonoscopy on an outpatient basis in 6 weeks. prior to that hospitalization he was at [facility] in the swing bed program from a previous hospitalization at [facility] from 03/04/2024 through 03/16/2024 after sustaining a a ground level fall and fracturing his left femur . He had an ORIF of his left femur intratrochanteric fracture with cephalomedullary nail with Dr. Brenner 03/08/2024. While at [facility] he received PT and OT who recommended swing bed program for additional rehab needs here at [facility]. Patient continued to progress overall with strength training and endurance was able to return to performing his own ADLs and ambulation with wheeled walker. patient is seen and assessed on day of discharge excited to return home reported no acute issues or complaints and appeared in no acute distress. patient will continue with home health services at home was discharged home with . Status at Discharge Functional status at discharge: uses cane/walker Overall status at discharge: patient is back to baseline Time Spent with Patient Time attestation: Total time spent providing and/or coordinating discharge services: Time spent: Greater than 30 minutes Exam Narrative: General: In no acute distress, well nourished Head: atraumatic ENT: moist mucous membranes Neck: supple, no JVD, no adenopathy, trachea midline Cardiac: Normal S1 and S2. No murmur, gallops or friction rubs, peripheral pulses intact. Respiratory: Lungs clear to auscultation, no adventitious lung sounds Gastrointestinal: soft, non-tender non-distended Extremities: moves all extremities well, no edema Skin: healing incision to left hip Neuro: Alert and oriented x4, cranial nerves intact, no neuro deficits. Psych: normal mood, normal affect, interactive GI: GI Palp: No Soft to palpation, No Firmness to palpation present (GI), No Tenderness to palpation present (GI), No Guarding due to palpation present (GI) and No Hernia present Auscultation: normal bowel sounds Discharge Plan Discharge Attending physician on discharge: Per Jackman Consulting providers: Elizabeth Tracey Discharging Clinician: Elizabeth Tracey Anticipated Discharge Date/Time: 04/20/24 09:22 Patient Disposition: Home Health Service Activity: may shower and as tolerated Discharge Instructions: Paralytic ileus: resolved * continue with diet as tolerated * bowel regiment as instructed proctocolitis: * plan to follow-up with GI outpatient to schedule sigmoidoscopy fall precautions * ensure all hazardous such as rugs and tripping hazards to health * continue to use wheeled walker and wheelchair as needed * recommend rising slowly from lying or sitting position post repair of left femur fracture: * follow-up with Dr. Brenner as scheduled bilateral pressure injury to heels: * left heel is dry and healing * right heel apply Betadine daily * continue to float heels * follow-up in wound clinic How can you care for yourself at home? ? Keep track of any new symptoms or changes in your symptoms. ? Rest until you feel better. ? Be safe with medicines. Take your medicines exactly as prescribed. Call your doctor if you think you are having a problem with your medicine. ? Do not drive after taking a prescription pain medicine. ? Ensure to follow-up with primary care physician as indicated and provide updated medication list provided to you at discharge. When should you call for help? Call 911 anytime you think you may need emergency care. For example, call if: ? You passed out (lost consciousness). Call your doctor now or seek immediate medical care if: ? You have new symptoms like fever, difficulty breathing, Chest pain, vomiting, or rash. ? You have new or different pain. ? You are confused and are having trouble thinking clearly. ? Your symptoms are getting worse. Watch closely for changes in your health, and be sure to contact your doctor if: ? You do not get better as expected. Patient Instructions: Antibiotic Form, How to Prevent Pressure Injuries (DC), Fall Prevention for Older Adults (DC), Ileus (DC), Fall Prevention (DC), Physical Activity for Older Adults (GEN) Patient Language: Citizen Of [place] Stand Alone Forms: General Discharge Information Follow-up/Referrals: Judah Brenner MD [Physician] - Keep Reg. Scheduled Appt. Georgiana Tripp DO [Primary Care Provider] - 2 weeks Discharge Medications: Continued magnesium hydroxide [Milk of Magnesia] 400 mg/5 mL Suspension 30 ml PO BID Qty: 355 0RF metoclopramide HCl [Reglan] 10 mg Tablet 10 mg PO BID Qty: 10 0RF Saccharomyces boulardii [Florastor] 250 mg Capsule 250 mg PO TID Qty: 10 0RF simethicone 80 mg Tablet,Chewable 80 mg PO QID Qty: 10 0RF furosemide 20 mg tablet 20 mg PO QAM 30 Days Qty: 0 0RF sdtwskkh-invijwhrfk-xevotylrp Packet 1 applic topical DAILY potassium chloride 20 mEq Packet 40 meq PO BID hydrocortisone acetate [Anusol-HC] 25 mg Suppository 25 mg RECTAL DAILY Qty: 24 0RF polyethylene glycol 3350 [Miralax] 17 gram Powder In Packet 17 g PO QAM PRN (Reason: Constipation) Qty: 30 0RF apixaban 5 mg tablet 5 mg PO BID famotidine 10 mg tablet 20 mg PO DAILY folic acid 1 mg tablet 1 mg PO DAILY sacubitril-valsartan 24-26 mg tablet 1 tablet PO BID Thera-M 9 mg iron-400 mcg tablet 1 tablet PO DAILY carvedilol 3.125 mg tablet 1.56 mg PO Q12H Rx Instructions: must administer with a meal/food hyoscyamine sulfate 0.125 mg tablet, sublingual 0.125 mg sublingual QID PRN (Reason: dyspepsia) Qty: 120 2RF Date of admission: 04/12/24 16:53 Primary Care Provider: Georgiana Tripp Admitting Provider: Per Jackman Attending physician on admission: Joselyn Benavidez Condition: Stable Quality -Patient's previous records reviewed on admission -ER notes reviewed in detail on admission -discussed all findings and current treatment plan with patient/Family/POA -Consultations reviewed for recommendations -Patient's disposition for safe discharge discussed with manager rn case Dictation performed by [employer] direct speech recognition software, therefore relationship counselor variants and typographical errors may occur. Hospitalist MIPS Heart Failure (Exclusion) Patient has history of Heart Transplant or Left Ventricular Assistive Device?: No IF YES, STOP HERE Heart Failure (Qualifier) Patient has current or prior documentation of LVEF less than or equal to 40%, or mod/servere depressed LVSF?: No IF NO, STOP HERE
--- NOTE | 2024-04-20 12:38 | PC.NURSE ---
Pt discharged to home care with . Discharge instructions were given to both, regarding pt follow up appointments, wound care and medications. Both verbilized understanding of instructions and had no further questions.
--- NOTE | 2024-04-21 12:13 | PC.NURSE ---
Discharge call back attempted, no answer
[2024-04-21 14:02] LABS: Testosterone Total 3 ng/dL (250-1100)
--- NOTE | 2024-04-22 12:20 | PC.NURSE ---
Discharge call back completed, doing well, no questions regarding dc instructions, states nurse there now evaluating his heels, states very thankful for all of the care he recieved.
== END 2024-04-20 10:25 | disposition home health service (06) | DRG 948 ==
PROVIDERS: Nurse Practitioner Family; Admitting Provider Internal Medicine; PCP Family Medicine; Visit Provider Nurse Practitioner Acute Care
DX: R53.1 Weakness (principal); I50.22 Chronic systolic (congestive) heart failure; I48.20 Chronic atrial fibrillation, unspecified; I48.0 Paroxysmal atrial fibrillation; D69.6 Thrombocytopenia, unspecified; E87.6 Hypokalemia; L89.629 Pressure ulcer of left heel, unspecified stage; L89.619 Pressure ulcer of right heel, unspecified stage; K76.0 Fatty (change of) liver, not elsewhere classified; K21.9 Gastro-esophageal reflux disease without esophagitis; K52.9 Noninfective gastroenteritis and colitis, unspecified; M19.90 Unspecified osteoarthritis, unspecified site; G20.A1 Parkinson's disease without dyskinesia, without mention of fluctuations; F10.20 Alcohol dependence, uncomplicated; W19.XXXD Unspecified fall, subsequent encounter; S72.142D Displaced intertrochanteric fracture of left femur, subsequent encounter for closed fracture with routine healing; Z95.0 Presence of cardiac pacemaker; Z86.74 Personal history of sudden cardiac arrest; Z86.711 Personal history of pulmonary embolism; Z86.718 Personal history of other venous thrombosis and embolism; Z79.01 Long term (current) use of anticoagulants; Z95.2 Presence of prosthetic heart valve; Z87.891 Personal history of nicotine dependence
CPT/HCPCS: 36415; 80048; 80053; 83735; 84132; 84153; 84403; 97110; 97161; 97165; 97530; 97535; A9270

== ENCOUNTER 2024-04-29 11:17 | Outpatient (NON) | payer MEDICARE, SELFPAY ==
--- OUTSIDE RECORDS SUMMARY | 2024-04-29 12:14 | XMS_ITS | Clinical Summary ---
Author Organization [facility] Address [address] [place] [address] Care Team Providers Care Energy Efficiency Engineer Name Role Phone KiananiecyGeorgiana moncada Primary Care Provider [phone]- [phone] Allergies No known active allergies Medications folic acid (FOLVITE) 1 mg tablet Take 1 tablet (1 mg total) by mouth daily 90 tablet 1 Active famotidine (PEPCID) 10 mg tablet Take 1 tablet (10 mg total) by mouth daily Active magnesium oxide (MAG-OX) 400 mg (241.3 mg elemental magnesium) tablet Take 1 tablet (400 mg total) by mouth daily 3 Active hyoscyamine (LEVSIN) 0.125 mg SL tablet Take 1 tablet (0.125 mg total) by mouth 3 Active multivitamin,t x-minerals capsule Take 1 tablet by mouth daily Active sacubitriL-cindy sartan (ENTRESTO) 24-26 mg tabletIndicati ons:chronic heart failure Take 1 tablet by mouth 2 (two) times a day 120 tablet 3 4 Active apixaban (ELIQUIS) 5 mg tabletIndicati ons:S/P TAVR (transcatheter aortic valve replacement) Take 1 tablet (5 mg total) by mouth 2 (two) times a day 60 tablet 11 4 09/01/19 25 Active carvediloL (COREG) 3.125 mg tablet Take 1/2 (one-half) tablet by mouth twice daily Strength: 3.125 mg 90 tablet 2 4 Active atorvastatin (LIPITOR) 80 mg tablet Take 1 tablet by mouth nightly 90 tablet 3 4 Active furosemide (LASIX) 20 mg tablet Take 1 tablet by mouth once daily 90 tablet 1 5 Active furosemide (LASIX) 20 mg tablet Take 1 tablet by mouth once daily 90 tablet 4 04/27/19 25 Discontinued Active Problems Problem Noted Date Diagnosed Date Cardiac pacemaker in situ 08/12/2023 Overview (08/12/2023): Biotronik Edora Dual Pacemaker. DOI 01/27/2021-Dr Cast. Patient prefers to follow with [facility]. Lesion of bladder 12/08/2022 Nonrheumatic aortic valve stenosis 04/25/2021 Aortic stenosis 02/01/2021 Bradycardia 01/25/2021 Overview (01/26/2021): Added automatically from request for surgery [id number] Cardiomyopathy 01/25/2021 Overview (01/29/2021): Added automatically from request for surgery [id number] Pre-operative cardiovascular examination, valvular heart disease 01/25/2021 Overview (01/29/2021): Added automatically from request for surgery [id number] Polyneuropathy, alcoholic 02/22/2020 Spasticity 02/22/2020 Cerebrovascular accident [...] Neurology. Assessment & Plan (02/22/2020 4:20 PM DIRECTOR PUBLIC): Mr. Eren Kulkarni is a 79 y.o. male, who presents for evaluation of possible PD. His thinks that at least since 2018 she has asked him to picker/puller his left foot when walking. He also [...] Type Department Care Team Description 03/17/2024 Telephone [facility] Cardiology [address] [place] [address] [place] [phone] Rafael Pineda MD 03/16/2024 Orders Only [facility] Cardiology [address] [place] [address] [address] [place] [phone] Roly Camacho MD 03/08/2024 Telephone [facility] Cardiology [address] [place] [address] [place] [phone] Rafael Pineda MD 03/07/2024 Telephone [facility] Cardiology [address] [facility] 8th [place] [address] [place] [address] La Patel, SHARAN from Last 3 Months Surgical History Surgery Date Site/Laterality Comments INSERT / REPLACE / REMOVE PACEMAKER Biotronik CATARACT EXTRACTION Left ANOMALOUS PULMONARY VENOUS RETURN REPAIR, TOTAL Medical History Medical History Date Comments Coronary artery disease Aortic stenosis Atrial fibrillation (HCC) PE (pulmonary thromboembolism) (HCC) DVT (deep venous thrombosis) (HCC) Cardiac arrest (HCC) Hyperlipidemia AAA (abdominal aortic aneurysm) Infrarenal AAA Anemia GERD (gastroesophageal reflux disease) Myocardial infarction (HCC) Stroke (cerebrum) (HCC) 2020 Arthritis Cataract History of transfusion Family History [...] on file Legal Sex Male 3:10 AM DIRECTOR PUBLIC Gender Identity Not on file Sexual Orientation Not on file Occupation Industry Job Start Date Job End Date Retired Not on file Not on file Not on file Obstetrics History Last Filed Vital Signs Vital Sign Reading Time Taken Comments Blood Pressure 82/54 01/20/2024 12:56 PM DIRECTOR PUBLIC Pulse 58 01/20/2024 12:56 PM DIRECTOR PUBLIC Temperature 36.2 C (97.2 F) 12/17/2022 12:40 PM CDT Respiratory Rate 21 12/17/2022 2:05 PM CDT Oxygen Saturation 92% 01/20/2024 12: 56 PM DIRECTOR PUBLIC Inhaled Oxygen Concentration - - Weight 78.9 kg (173 lb 14.4 oz) 024 12:56 PM DIRECTOR PUBLIC Height 182.9 cm (6') 01/20/2024 12:56 PM DIRECTOR PUBLIC Body Mass Index 23.59 01/20/2024 12:56 PM DIRECTOR PUBLIC Plan of Treatment Health Maintenance Due Date [...] 11/12/2022, 08/13/2022 Medical Devices Implanted Type Area Manager Social Services Device Identifier Shelf Expiration Date Model / Serial / Lot Biotronik Inc [id number] Solia S 53cm Steroid Elute Bipolar Active Fixation Endocardial - [id number] - [id number] Implanted:Qty: 1 on 01/27/2021 by Sandra Graham MD at [facility] Biotronik Inc 11/22/2022 [id number] / [id number] / Biotronik Inc [id number] Solia S 45cm Bipolar Active Fixation Lead Pacing Steroid Eluting - [id number] - [id number] Implanted:Qty: 1 on 01/27/2021 by Sandra Graham MD at [facility] Bi[employer]ronik Inc 11/22/2022 [id number] / [id number] / Biotronik Inc [id number] Edora Promri 41i69x1.5mm Dual Chamber Rate Adaptive Unipolar Bipolar - [id number] - [id number] Implanted:Qty: 1 on 01/27/2021 by Sandra Graham MD at [facility] Biotronik Inc 05/23/2022 [id number] / [id number] / Perclose 6fr Vascular Closure - [id number] Implanted:Qty: 1 on 04/25/2021 by Rafael Pineda MD at [facility] [employer] 12/23/2022 [id number] / / [id number] Perclose 6fr Vascular Closure - [id number] Implanted:Qty: 1 on 04/25/2021 by Rafael Pineda MD at [facility] [employer] 12/23/2022 [id number] / / [id number] Medtronic Inc Evproplus-34us Valve 34mm Aortic Evolut Pro+ - [id number] - [id number] Implanted:Qty: 1 on 04/25/2021 by Rafael Pineda MD at [facility] Medtronic Inc 01/31/2022 EVPROPLUS-3 4US / [id number] / Procedures Procedure Name Priority Date/Time Associated Diagnosis Comments CARDIOLOGY DOCUMENT SCAN Routine 03/08/2024 7:27 AM DIRECTOR PUBLIC from Last 3 Months Results * Cardiology Document Scan (03/08/2024 7:27 AM DIRECTOR PUBLIC) Anatomical Region Laterality Modality Other [facility] Shamar Camacho MD CV CARDIAC SERVICES PRO CEDURES Final Result from Last 3 Months Insurance MEDICARE SOLUTIONS [facility] Address: [facility] [address] [place] [address] MEDICARE MEDICARE SOLUTIONS Advance Directives For more information, please contact: [phone] * Full Code (Latest Code Status on File) Date Activated Date Inactivated Comments 02/01/2021 4:48 PM 02/12/2021 4:01 PM * Full Code Date Activated Date Inactivated Comments 01/25/2021 6:22 PM 02/01/2021 4:44 PM * Full Code Date Activated Date Inactivated Comments 05/12/2019 8:58 PM 05/17/2019 2:30 PM Care Teams Energy Efficiency Engineer Relationship Specialty Start Date End Date Georgiana Tripp DO PCP - General Family Medicine 03/20/21
--- OUTSIDE RECORDS SUMMARY | 2024-04-29 12:14 | XMS_ITS | Referral Summary ---
Author Organization [facility] Address [address] [place] [phone] Care Team Providers Care Bellstand Attendant Name Role Phone KiananiecyGeorgiana moncada Primary Care Provider +1- [phone] Encounters Date Type Department Care Team Description 03/17/2024 Telephone [facility] Cardiology [address] [place] [address] [place] [phone] Rafael Pineda MD 03/16/2024 Orders Only [facility] Cardiology [address] [place] [address] [place] [phone] Roly Camacho MD 03/08/2024 Telephone [facility] Cardiology [address] [place] [phone] Rafael Pineda MD 03/07/2024 Telephone [facility] Cardiology [address] [facility] 8th [place] [address] [place] [address] La Patel NP from Last 3 Months Allergies No known [...] 01/27/2021-Dr Cast. Patient prefers to follow with [facility]. Lesion of bladder 12/08/2022 Nonrheumatic aortic valve stenosis 04/25/2021 Aortic stenosis 02/01/2021 Bradycardia 01/25/2021 Overview (01/26/2021): Added automatically from request for surgery [id number] Cardiomyopathy 01/25/2021 Overview (01/29/2021): Added automatically from request for surgery [id number] Pre-operative cardiovascular examination, valvular heart disease 01/25/2021 Overview (01/29/2021): Added automatically from request for surgery [id number] Polyneuropathy, alcoholic 02/22/2020 Spasticity 02/22/2020 Cerebrovascular accident (CVA) 02/22/2020 Gait disorder 02/22/2020 Assessment & Plan (07/03/2021 6:57 PM CDT): ASSESSMENT - 80 y.o. man with a history of likely 3 years of gait and balance changes that began in 2018 at age 31 with slowing of gait [...] Neurology. Assessment & Plan (02/22/2020 4:20 PM FINISHED GOODS INSPECTOR): Mr. Eren Kulkarni is a 79 y.o. male, who presents for evaluation of possible PD. His thinks that at least since 2018 she has asked him to case picker his left foot when walking. He [...] on file Legal Sex Male 3:10 AM FINISHED GOODS INSPECTOR Gender Identity Not on file Sexual Orientation Not on file Occupation Industry Job Start Date Job End Date Retired Not on file Not on file Not on file Last Filed Vital Signs Vital Sign Reading Time Taken Comments Blood Pressure 82/54 01/20/2024 12:56 PM FINISHED GOODS INSPECTOR Pulse 58 01/20/2024 12:56 PM FINISHED GOODS INSPECTOR Temperature 36.2 C (97.2 F) 12/17/2022 12:40 PM CDT Respiratory Rate 21 12/17/2022 2:05 PM CDT Oxygen Saturation 92% 01/20/2024 12: 56 PM FINISHED GOODS INSPECTOR Inhaled Oxygen Concentration - - Weight 78.9 kg (173 lb 14.4 oz) 024 12:56 PM FINISHED GOODS INSPECTOR Height 182.9 cm (6') 01/20/2024 12:56 PM FINISHED GOODS INSPECTOR Body Mass Index 23.59 01/20/2024 12:56 PM FINISHED GOODS INSPECTOR Plan of Treatment Not on file Medical Devices Implanted Type Area Tangible Personal Property Appraiser Device Identifier Shelf Expiration Date Model / Serial / Lot Intrinsiq Materialsronik Inc [id number] Solia S 53cm Steroid Elute Bipolar Active Fixation Endocardial - [id number] - [id number] Implanted:Qty: 1 on 01/27/2021 by Sandra Graham MD at [facility] [employer] Inc 11/22/2022 [id number] / [id number] / Biotronik Inc 361260 Solia S 45cm Bipolar Active Fixation Lead Pacing Steroid Eluting - [id number] - [id number] Implanted:Qty: 1 on 01/27/2021 by Sandra Graham MD at [facility] Intrinsiq [employer] Inc 11/22/2022 [id number] / [id number] / Biotronik Inc [id number] Edora Promri 79n53o1.5mm Dual Chamber Rate Adaptive Unipolar Bipolar - [id number] - [id number] Implanted:Qty: 1 on 01/27/2021 by Sandra Graham MD at [facility] [employer]ik Inc 05/23/2022 [id number] / [id number] / Perclose 6fr Vascular Closure - [id number] Implanted:Qty: 1 on 04/25/2021 by Rafael Pineda MD at [facility] [employer] 12/23/2022 94339-68 / / [id number] Perclose 6fr Vascular Closure - [id number] Implanted:Qty: 1 on 04/25/2021 by Rafael Pineda MD at [facility] [employer] 12/23/2022 [id number] / / [id number] Medtronic Inc Evproplus-34us Valve 34mm Aortic Evolut Pro+ - [id number] - [id number] Implanted:Qty: 1 on 04/25/2021 by Rafael Pineda MD at [facility] [employer] Inc 01/31/2022 EVPROPLUS-3 4US / [id number] / Procedures Procedure Name Priority Date/Time Associated Diagnosis Comments CARDIOLOGY DOCUMENT SCAN Routine 03/08/2024 7:27 AM FINISHED GOODS INSPECTOR from Last 3 Months Results * Cardiology Document Scan (03/08/2024 7:27 AM FINISHED GOODS INSPECTOR) Anatomical Region Laterality Modality Other [facility] Shamar Camacho MD CV CARDIAC SERVICES PRO CEDURES Final Result from Last 3 Months Insurance MEDICARE SOLUTIONS MEDICARE MEDICARE SOLUTIONS Advance Directives For more information, please contact: [phone] * Full Code (Latest Code Status on File) Date Activated Date Inactivated Comments 02/01/2021 4:48 PM 02/12/2021 4:01 PM * Full Code Date Activated Date Inactivated Comments 01/25/2021 6:22 PM 02/01/2021 4:44 PM * Full Code Date Activated Date Inactivated Comments 05/12/2019 8:58 PM 05/17/2019 2:30 PM Care Teams Bellstand Attendant Relationship Specialty Start Date End Date Georgiana Tripp DO PCP - General Family Medicine 03/20/21
--- OUTSIDE RECORDS SUMMARY | 2024-04-29 12:14 | XMS_ITS | Continuity of Care Document ---
Author Name [facility] Organization [facility] Care Team Providers Care Rn Picu Name Role Phone [facility] Unavailable Unavailable Problems Combined list of problems from [facility] and [facility] facilities. It does not include entries that were removed or entered in error. Problem Status Onset Date Problem Type Date of Resolution Comments Source Cerebellar stroke syndrome Active Condition [facility] Deep venous thrombosis Active Condition Apr 02, 2021 Entered By: RAVIN CASTILLO Comment: Bilateral-F ebruary 2021 [facility] Erectile dysfunction Active Condition [facility] H/O: pacemaker in situ Active Condition [facility] Hypercholesterolemia Active Condition [facility] Prostate cancer care review done Active Condition [facility] Pulmonary embolism Active Condition [facility] Diagnosis: ICD-10-CM 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 Medication Details Route Status Patient Instructions Prescription Expires Prescription Number Last Dispense Date Ordering Provider Order Date Order Qty Source APIXABAN 5MG TAB TAKE ONE TABLET BY MOUTH TWICE A DAY ORAL ACTIVE GERALDINE CASTILLO E B 2021 [facility] Rosanne ATORVASTATI N CA 80MG TAB TAKE ONE TABLET BY MOUTH EVERY EVENING ORAL ACTIVE GERALDINE CASTILLO E B 2021 [facility] CARVEDILOL 6.25MG TAB TAKE ONE-HALF TABLET BY MOUTH TWICE A DAY ORAL ACTIVE GERALDINE CASTILLO E B 2021 [facility] FOLIC ACID 1MG TAB TAKE ONE TABLET BY MOUTH ONCE A DAY ORAL ACTIVE NARRA,SRE E B 2021 [facility] FUROSEMIDE 20MG TAB TAKE ONE TABLET BY MOUTH EVERY MORNING ORAL ACTIVE NARRA,SRE E B 2021 [facility] MULTIVITAMI NS W/MINERALS CAP/TAB TAKE 1 CAP/TAB BY MOUTH ONCE A DAY ORAL ACTIVE NARRA,SRE E B 2021 [facility] SACUBITRIL 49MG/VALSAR BACH 51MG TAB TAKE ONE-HALF TABLET BY MOUTH TWICE A DAY ORAL ACTIVE NARRA,SRE E B 2021 [facility] SILDENAFIL CITRATE 50MG TAB TAKE ONE-HALF TABLET BY MOUTH TWO TIMES PER WEEK NEEDED FOR ERECTILE DYSFUNCT ION (TAKE 60 MINUTES PRIOR TO SEXUAL ACTIVITY ) - LIMIT 6 DOSES PER 30 DAYS ORAL 11/24/2023 [id number] 3 NORMANA,SRE E B 2022 6 [facility] THIAMINE 50MG TAB TAKE ONE TABLET BY MOUTH ONCE A DAY ORAL ACTIVE NORMANA,SRE E B 2021 [facility] Immunizations Combined list of available immunizations from the Department of Defense and Veterans Affairs facilities. Immunization Series Date Given Administered By Site Reaction Lot Number CVX Code Drug Car Blocker Status Comments Source ZOSTER RECOMBINANT 2 2022 KARLA BARLOW RIGHT DELTO ID [id number] 187 complet ed [facility] PNEUMOCOCCAL POLYSACCHARID E [id number] 2022 KARY BUCKNER RIGHT DELTO ID [id number] 33 complet ed [facility] ZOSTER RECOMBINANT 1 2022 KARY BUCKNER LEFT DELTO ID [id number] 187 complet ed [facility] INFLUENZA, UNSPECIFIED FORMULATION 2021 88 complet ed [facility] PNEUMOCOCCAL CONJUGATE PCV 13 2021 133 complet ed [facility] TDAP 2021 115 complet ed [facility] COVID-19 (PFIZER), MRNA, LNP-S, PF, 30 MCG/0.3 ML DOSE 3 2020 208 complet ed [facility] COVID-19 (PFIZER), MRNA, LNP-S, PF, 30 MCG/0.3 ML DOSE 2 2020 208 complet ed [facility] COVID-19 (PFIZER), MRNA, LNP-S, PF, 30 MCG/0.3 ML DOSE 1 2020 208 complet ed [facility] INFLUENZA, UNSPECIFIED FORMULATION 2019 88 complet ed [facility] Results Combined list of [...] July 03, 2022 02:49 PM Reporting Lab: [facility] [phone] Performing Lab: [facility] [id number] [place] [address] DIVISION LIPID PANEL (STL) TRIGLYCERID E [MASS/VOLUM E] IN SERUM OR PLASMA 96 mg/dL 0 - 150 07/03 Specimen Type: PLASMA Comment: No hemolysis noted. Ordering Provider: RAVIN CASTILLO Report Released Date/Time: July 03, 2022 02:49 PM Reporting Lab: [facility] [address] Performing Lab: [facility] [phone] [place] [address] DIVISION LIPID PANEL (STL) CHOLESTEROL IN LDL [MASS/VOLUM E] IN SERUM OR PLASMA BY CALCULATION 112 mg/dL 07/03 Specimen Type: PLASMA Comment: No hemolysis noted. Ordering Provider: RAVIN CASTILLO Report Released Date/Time: July 03, 2022 02:49 PM Reporting Lab: [facility] [place] [address] Performing Lab: [facility] LIPID PANEL (STL) CHOLESTEROL IN HDL [MASS/VOLUM E] IN SERUM OR PLASMA 36 mg/dL 40 07/03 L Specimen Type: PLASMA Comment: No hemolysis noted. Ordering Provider: RAVIN CASTILLO Report Released Date/Time: July 03, 2022 02:49 PM Reporting Lab: [facility] [place] [address] Performing Lab: [facility] DIVISION CBC LEUKOCYTES [#/VOLUME] IN BLOOD BY AUTOMATED COUNT 6.7 10*3/u L 3.6 - 11.2 07/03 Specimen Type: BLOOD No comment entered. Ordering Provider: RAVIN CASTILLO Report Released Date/Time: July 03, 2022 02:49 PM Reporting Lab: [facility] [place] [address] Performing Lab: [facility] DIVISION CBC ERYTHROCYTE S [#/VOLUME] IN BLOOD BY AUTOMATED COUNT 5.16 10*6/u L 4.10 - 5.70 07/03 Specimen Type: BLOOD No comment entered. Ordering Provider: RAVIN CASTILLO Report Released Date/Time: July 03, 2022 02:49 PM Reporting Lab: [facility] [place] [address] Performing Lab: [facility] [facility] CBC HEMOGLOBIN [MASS/VOLUM E] IN BLOOD 14.4 g/dL 13.1 - 16.8 07/03 Specimen Type: BLOOD No comment entered. Ordering Provider: RAVIN CASTILLO Report Released Date/Time: July 03, 2022 02:49 PM Reporting Lab: [facility] [place] [address] Performing Lab: [facility] DIVISION CBC HEMATOCRIT [VOLUME FRACTION] OF BLOOD 43.5 38.2 - 48.4 07/03 Specimen Type: BLOOD No comment entered. Ordering Provider: RAVIN CASTILLO Report Released Date/Time: July 03, 2022 02:49 PM Reporting Lab: [facility] [place] [address] Performing Lab: [facility] DIVISION CBC MCV [ENTITIC VOLUME] BY AUTOMATED COUNT 84.3 fL 80.0 - 100.0 07/03 Specimen Type: BLOOD No comment entered. Ordering Provider: RAVIN CASTILLO Report Released Date/Time: July 03, 2022 02:49 PM Reporting Lab: [facility] [place] [address] Performing Lab: [facility] DIVISION CBC MCH [ENTITIC MASS] BY AUTOMATED COUNT 27.9 pg 27.0 - 34.0 07/03 Specimen Type: BLOOD No comment entered. Ordering Provider: RAVIN CASTILLO Report Released Date/Time: July 03, 2022 02:49 PM Reporting Lab: [facility] [place] [address] Performing Lab: [facility] DIVISION CBC MCHC [MASS/VOLUM E] BY AUTOMATED COUNT 33.1 g/dL 33.0 - 36.0 07/03 Specimen Type: BLOOD No comment entered. Ordering Provider: RAVIN CASTILLO Report Released Date/Time: July 03, 2022 02:49 PM Reporting Lab: [facility] [place] [address] Performing Lab: [facility] CBC PLATELETS [#/VOLUME] IN BLOOD BY AUTOMATED COUNT 140 10*3/u L 150 - 400 07/03 L Specimen Type: BLOOD No comment entered. Ordering Provider: RAVIN CASTILLO Report Released Date/Time: July 03, 2022 02:49 PM Reporting Lab: [facility]1 [place] [address] Performing Lab: [facility] DIVISION CBC PLATELET MEAN VOLUME [ENTITIC VOLUME] IN BLOOD BY AUTOMATED COUNT 11.4 fL 7.5 - 11.2 07/03 H Specimen Type: BLOOD No comment entered. Ordering Provider: RAVIN CASTILLO Report Released Date/Time: July 03, 2022 02:49 PM Reporting Lab: [facility]1 [place] [address] Performing Lab: [facility] CBC ERYTHROCYTE DISTRIBUTIO N WIDTH [RATIO] BY AUTOMATED COUNT 12.3 11.8 - 15.1 07/03 Specimen Type: BLOOD No comment entered. Ordering Provider: RAVIN CASTILLO Report Released Date/Time: July 03, 2022 02:49 PM Reporting Lab: [facility]1 [place] [address] Performing Lab: [facility] #[address] DIVISION CBC LYMPHOCYTES /100 LEUKOCYTES IN BLOOD BY AUTOMATED COUNT 23 07/03 Specimen Type: BLOOD No comment entered. Ordering Provider: RAVIN CASTILLO Report Released Date/Time: July 03, 2022 02:49 PM Reporting Lab: [facility]1 [place] [address] Performing Lab: [facility] DIVISION CBC MONOCYTES/1 00 LEUKOCYTES IN BLOOD BY AUTOMATED COUNT 8 07/03 Specimen Type: BLOOD No comment entered. Ordering Provider: RAVIN CASTILLO Report Released Date/Time: July 03, 2022 02:49 PM Reporting Lab: [facility]1 [place] [address] Performing Lab: [facility] DIVISION CBC NEUTROPHILS /100 LEUKOCYTES IN BLOOD BY AUTOMATED COUNT 67 07/03 Specimen Type: BLOOD No comment entered. Ordering Provider: RAVIN CASTILLO Report Released Date/Time: July 03, 2022 02:49 PM Reporting Lab: [facility]1 [place] [address] Performing Lab: [facility] DIVISION CBC EOSINOPHILS /100 LEUKOCYTES IN BLOOD BY AUTOMATED COUNT 1 07/03 Specimen Type: BLOOD No comment entered. Ordering Provider: RAVIN CASTILLO Report Released Date/Time: July 03, 2022 02:49 PM Reporting Lab: [facility]1 [place] [address] Performing Lab: [facility] DIVISION CBC BASOPHILS/1 00 LEUKOCYTES IN BLOOD BY AUTOMATED COUNT 1 07/03 Specimen Type: BLOOD No comment entered. Ordering Provider: RAVIN CASTILLO Report Released Date/Time: July 03, 2022 02:49 PM Reporting Lab: [facility]1 [place] [address] Performing Lab: [facility] DIVISION CBC LYMPHOCYTES [#/VOLUME] IN BLOOD BY AUTOMATED COUNT 1.52 10*3/u L 0.77 - 4.50 07/03 Specimen Type: BLOOD No comment entered. Ordering Provider: RAVIN CASTILLO Report Released Date/Time: July 03, 2022 02:49 PM Reporting Lab: [facility]1 [place] [address] Performing Lab: [facility] DIVISION CBC MONOCYTES [#/VOLUME] IN BLOOD BY AUTOMATED COUNT 0.53 10*3/u L 0.19 - 1.50 07/03 Specimen Type: BLOOD No comment entered. Ordering Provider: RAVIN CASTILLO Report Released Date/Time: July 03, 2022 02:49 PM Reporting Lab: [facility]1 [place] [address] Performing Lab: [facility] DIVISION CBC NEUTROPHILS [#/VOLUME] IN BLOOD BY AUTOMATED COUNT 4.51 10*3/u L 2.10 - 8.00 07/03 Specimen Type: BLOOD No comment entered. Ordering Provider: RAVIN CASTILLO Report Released Date/Time: July 03, 2022 02:49 PM Reporting Lab: [facility]1 [place] [address] Performing Lab: [facility] DIVISION CBC EOSINOPHILS [#/VOLUME] IN BLOOD BY AUTOMATED COUNT 0.09 10*3/u L 0.00 - 0.60 07/03 Specimen Type: BLOOD No comment entered. Ordering Provider: RAVIN CASTILLO Report Released Date/Time: July 03, 2022 02:49 PM Reporting Lab: [facility]1 [place] [address] Performing Lab: [facility] DIVISION CBC BASOPHILS [#/VOLUME] IN BLOOD BY AUTOMATED COUNT 0.04 10*3/u L 0.00 - 0.20 07/03 Specimen Type: BLOOD No comment entered. Ordering Provider: RAVIN CASTILLO Report Released Date/Time: July 03, 2022 02:49 PM Reporting Lab: [facility]1 [place] [address] Performing Lab: [facility] #[address] DIVISION CBC PLATELETS RETICULATED /100 PLATELETS IN BLOOD BY AUTOMATED COUNT 5.8 1.0 - 7.0 07/03 Specimen Type: BLOOD No comment entered. Ordering Provider: RAVIN CASTILLO Report Released Date/Time: July 03, 2022 02:49 PM Reporting Lab: [facility]1 [place] [address] Performing Lab: [facility] DIVISION COMPREHENS ANANTH METABOLIC PANEL CREATININE [MASS/VOLUM E] IN SERUM OR PLASMA 1.08 mg/dL 0.70 - 1.30 07/03 Specimen Type: PLASMA Comment: No hemolysis noted. Ordering Provider: RAVIN CASTILLO Report Released Date/Time: July 03, 2022 02:49 PM Reporting Lab: [facility]1 [place] [address] Performing Lab: [facility] [address] DIVISION COMPREHENS ANANTH METABOLIC PANEL UREA NITROGEN [MASS/VOLUM E] IN SERUM OR PLASMA 22 mg/dL 9 - 25 07/03 Specimen Type: PLASMA Comment: No hemolysis noted. Ordering Provider: RAVIN CASTILLO Report Released Date/Time: July 03, 2022 02:49 PM Reporting Lab: [facility]1 [place] [address] Performing Lab: [facility] DIVISION COMPREHENS ANANTH METABOLIC PANEL GLUCOSE [MASS/VOLUM E] IN SERUM OR PLASMA 110 mg/dL 72 - 99 07/03 H Specimen Type: PLASMA Comment: No hemolysis noted. Ordering Provider: RAVIN CASTILLO Report Released Date/Time: July 03, 2022 02:49 PM Reporting Lab: [facility]1 [place] [address] Performing Lab: [facility] DIVISION COMPREHENS ANANTH METABOLIC PANEL SODIUM [MOLES/VOLU ME] IN SERUM OR PLASMA 139 meq/L 136 - 145 07/03 Specimen Type: PLASMA Comment: No hemolysis noted. Ordering Provider: RAVIN CASTILLO Report Released Date/Time: July 03, 2022 02:49 PM Reporting Lab: [facility]1 [place] [address] Performing Lab: [facility] DIVISION COMPREHENS ANANTH METABOLIC PANEL POTASSIUM [MOLES/VOLU ME] IN SERUM OR PLASMA 4.9 meq/L 3.5 - 5.0 07/03 Specimen Type: PLASMA Comment: No hemolysis noted. Ordering Provider: RAVIN CASTILLO Report Released Date/Time: July 03, 2022 02:49 PM Reporting Lab: [facility]1 [place] [address] Performing Lab: [facility]1 [facility] [id number] [place] [address] DIVISION COMPREHENS ANANTH METABOLIC PANEL CHLORIDE [MOLES/VOLU ME] IN SERUM OR PLASMA 104 meq/L 98 - 107 07/03 Specimen Type: PLASMA Comment: No hemolysis noted. Ordering Provider: RAVIN CASTILLO Report Released Date/Time: July 03, 2022 02:49 PM Reporting Lab: [facility]1 [place] [address] Performing Lab: [facility] #[address] [place] [id number] DIVISION COMPREHENS ANANTH METABOLIC PANEL CARBON DIOXIDE, TOTAL [MOLES/VOLU ME] IN SERUM OR PLASMA 26 meq/L 22 - 31 07/03 Specimen Type: PLASMA Comment: No hemolysis noted. Ordering Provider: RAVIN CASTILLO Report Released Date/Time: July 03, 2022 02:49 PM Reporting Lab: [facility]1 [place] [address] Performing Lab: [facility] DIVISION COMPREHENS ANANTH METABOLIC PANEL CALCIUM [MASS/VOLUM E] IN SERUM OR PLASMA 10.4 mg/dL 8.4 - 10.4 07/03 Specimen Type: PLASMA Comment: No hemolysis noted. Ordering Provider: RAVIN CASTILLO Report Released Date/Time: July 03, 2022 02:49 PM Reporting Lab: [facility]1 [place] [address] Performing Lab: [facility] DIVISION COMPREHENS ANANTH METABOLIC PANEL PROTEIN [MASS/VOLUM E] IN SERUM OR PLASMA 7.5 g/dL 6.0 - 8.6 07/03 Specimen Type: PLASMA Comment: No hemolysis noted. Ordering Provider: RAVIN CASTILLO Report Released Date/Time: July 03, 2022 02:49 PM Reporting Lab: [facility] [place] [address] Performing Lab: [facility] COMPREHENS ANANTH METABOLIC PANEL ALBUMIN [MASS/VOLUM E] IN SERUM OR PLASMA 4.3 g/dL 3.4 - 5.0 07/03 Specimen Type: PLASMA Comment: No hemolysis noted. Ordering Provider: RAVIN CASTILLO Report Released Date/Time: July 03, 2022 02:49 PM Reporting Lab: [facility]1 [place] [address] Performing Lab: [facility] #[address] COMPREHENS ANANTH METABOLIC PANEL BILIRUBIN.T OTAL [MASS/VOLUM E] IN SERUM OR PLASMA 0.8 mg/dL 0.2 - 1.2 07/03 Specimen Type: PLASMA Comment: No hemolysis noted. Ordering Provider: RAVIN CASTILLO Report Released Date/Time: July 03, 2022 02:49 PM Reporting Lab: [facility]1 [place] [address] Performing Lab: [facility] DIVISION COMPREHENS ANANTH METABOLIC PANEL ALKALINE PHOSPHATASE [ENZYMATIC ACTIVITY/VO LUME] IN SERUM OR PLASMA 84 U/L 40 - 150 07/03 Specimen Type: PLASMA Comment: No hemolysis noted. Ordering Provider: RAVIN CASTILLO Report Released Date/Time: July 03, 2022 02:49 PM Reporting Lab: [facility]1 [place] [address] Performing Lab: [facility] #[address] DIVISION COMPREHENS ANANTH METABOLIC PANEL ASPARTATE AMINOTRANSF ERASE [ENZYMATIC ACTIVITY/VO LUME] IN SERUM OR PLASMA 35 U/L 5 - 34 07/03 H Specimen Type: PLASMA Comment: No hemolysis noted. Ordering Provider: RAVIN CASTILLO Report Released Date/Time: July 03, 2022 02:49 PM Reporting Lab: [facility]1 [facility] [address] Performing Lab: [facility]1 [facility] [phone] DIVISION COMPREHENS ANANTH METABOLIC PANEL ALANINE AMINOTRANSF ERASE [ENZYMATIC ACTIVITY/VO LUME] IN SERUM OR PLASMA 17 U/L 8 - 40 07/03 Specimen Type: PLASMA Comment: No hemolysis noted. Ordering Provider: RAVIN CASTILLO Report Released Date/Time: July 03, 2022 02:49 PM Reporting Lab: [facility]1 [facility] [address] Performing Lab: [facility]1 [facility] [id number] DIVISION COMPREHENS ANANTH METABOLIC PANEL GLOMERULAR FILTRATION RATE/1.73 SQ M.PREDICTED [VOLUME RATE/AREA] IN SERUM, PLASMA OR BLOOD BY CREATININE- BASED FORMULA (CKD-EPI 2020) 69.37 07/03 Specimen Type: PLASMA Comment: No hemolysis noted. Ordering Provider: RAVIN CASTILLO Report Released Date/Time: July 03, 2022 02:49 PM Reporting Lab: [facility]1 [facility] [address] Performing Lab: [facility]1 [facility] [id number] [place] [address] Vital Signs Combined list of inpatient and outpatient Vital Signs from Department of Defense and Veterans Affairs, ranging from 12 months to all on record, depending upon the facility. Vital Sign Value Date Comments Source SYSTOLIC BLOOD PRESSURE 117 07/07/2023 14:12:42 [facility] DIASTOLIC BLOOD PRESSURE 75 07/07/2023 14:12:42 [facility] PULSE OXIMETRY 97 07/07/2023 14:12:42 [facility] WEIGHT 175.7 07/07/2023 14:12:42 [facility] BMI 24 kg/m2 07/07/2023 14:12:42 [facility] PAIN 0 07/07/2023 14:12:42 [facility] TEMPERATURE 98.2 07/07/2023 14:12:42 [facility] PULSE 68 07/07/2023 14:12:42 [facility] RESPIRATION 20 07/07/2023 14:12:42 [facility] Encounters Combined list of: 1) Encounters from Department of Veterans Affairs facilities going backup to the last 18 months, not all VA inpatient encounters are included; 2) Encounters from the Department of [facility] facilities going backup to 280 months. Location Location Details Encounter Type Encounter Number Reason For Visit Attending Provider ADM Date DC Date Status Disposition Source [facility] OFF/OP EST JUNE X REQ PHY/QHP [id number] Diagnos is: ICD-10- CM Z23 Encount er for immuniz ation BIENVENIDO BARLOW M 11/12 [facility] OFFICE O/P EST HI 40 MIN [id number] Diagnos is: ICD-10- CM D07.5 Carcino ma in situ of prostat e NARRA,RAVIN B 07/06 [facility] Outpatient Encounter [id number] 07[facility]13 [facility] En[facility] [id number] GRAEME LYNN 04/07 [facility] N Social History Combined list of available smoking, tobacco, and other social history from Department of Defense and Veterans Affairs facilities. Social History Type Response Date Comment Sourc e Tobacco smoking status NHIS VA-TOBACCO FORMER USER 07/07/2023 [facility] History of tobacco use VA-TOBACCO QUIT 1 5 YRS OR MORE 07/07/2023 [facility] History of tobacco use VA-TOBACCO NEVER USED 06/24/2022 [facility] History of tobacco use VA-TOBACCO FORMER USER 04/02/2021 [facility] History of tobacco use [place]-TO[place]ACCO QUIT 1 5 YRS OR MORE 04/27/2020 [facility] Plan of Care List of future care activities from Department of [facility] Affairs facilities. Additional future care activities may be listed in the Assessment and Plan section. Date/Time Care Activity Care Activity Detail Facili ty 06/09/2024 AMBULATORY - MEDICINE AMBULATORY - MEDICI NE [facility] 06/29/2024 AMBULATORY - SURGERY AMBULATORY - SURGERY [facility]
--- OUTSIDE RECORDS SUMMARY | 2024-04-29 12:14 | XMS_ITS | Encounter Summary ---
Author Organization [facility] Address [address] [facility] [place] [address] Care Team Providers Care Waste Water Plant Operator Name Role Phone Unknown, Provider Primary Care Provider Unavaila ble Encounter Details Date Type Department Care Team (Late st Contact Info) Description 03/20/2022 Lab Requisition [facility] DermPath Lab [address] [facility] [place] [address] Tito Benito MD [address] [address] Social History Tobacco Use Types [...] Comments DERMATOPATHOLOGY Routine 03/19/2022 12:0 0 AM CAR HOPPER documented in this encounter Results * DERMATOPATHOLOGY (03/19/2022 12:00 AM CAR HOPPER) Case Report Dermatopathology Report Case: [id number] Authorizing Provider: Tito Benito MD Collected: 03/19/2022 12:00 AM Ordering Location: [facility] DermPath Lab Received: 03/20/2022 01:28 PM Pathologist: Debbie Donaldson MD Specimen: Skin, right ant distal thigh 3 4:37 PM [facility]ER[facility]Y [facility] Final Diagnosis Specimen A. 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 Check Margins. 3 4:37 PM [facility] DERMATOPATHOLOGY [facility]ORATORY Gross Description Specimen A: Received is one formalin filled container labeled with the patients name and designated right ant distal thigh. The specimen consists of a shave removal measuring 48s29b1 mm. Jar 0. 3 4:37 PM [facility] DERMATOPATHOLOGY LABORATORY Microscopic Description Specimen A. SKIN, right ant distal thigh: There are nests of squamous epithelial cells which arise from the epidermis and extend into the dermis. The nests have only focal central keratinization and rare horn oriana formation. This lesion is not present at the sampled margin of the specimen. 3 4:37 PM [facility] DERMATOPATHOLOGY [facility]ORATORY Disclaimer An external and internal positive and negative controls are appropriate for the histochemical, immunohistochemical and immunofluorescence stain(s) in this case (if any), except where stated explicitly. The performance characteristics of the stain(s) cited in this report were developed and its performance characteristic determined by the Dermatopathology Laboratory at [facility], directed by Dr. Preeti Marques. These tests need not be, and therefore are not, approved by the [place] Food and Drug Administration. The tests are used for clinical purposes. Billing Codes Specimen Charges Stain Charges 85813 1 3 4:37 PM [facility] DERMATOPATHOLOGY [facility]ORATORY Embedded Images 3 4:37 PM [facility] DERMATOPATH[facility]Y [facility]ORY Pathology/Cytolog y TISSUE SPECIMEN FROM SKIN / Unknown 03/19/2022 03/20/2022 1:28 PM CAR HOPPER Tito Benito MD LAB - PATHOLOGY/CYTO LOGY ORDERABLES DERMATOPATHOLOGY LABORATORY [facility] - Department of Dermatology [address], [address] [phone] documented in this encounter Visit Diagnoses Not on filedocumented in this encounter Care Teams Waste Water Plant Operator Relationship Specialty Start Date End Date Unknown, Provider PCP - General 07/09/17 documented as of this encounter
--- OUTSIDE RECORDS SUMMARY | 2024-04-29 12:14 | XMS_ITS | Encounter Summary ---
Author Organization [facility] Address [address] [place] [address] Phone Care Team Providers Care Char Filter Tank Tender Head Name Role Phone Georgiana Tripp DO Primary Care Provider [phone] Encounter Details Date Type Department Care Team (Late st Contact Info) Description 03/07/2024 Telephone [facility] Cardiology [address] [facility] 8th [place] [address] [place] [address] La Patel, PLATING ENGINEER [address] [facility] [address] [place] [address] Social History Tobacco Use Types Packs/Day Years [...] on file Legal 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
--- OUTSIDE RECORDS SUMMARY | 2024-04-29 12:14 | XMS_ITS | Encounter Summary ---
Author Organization [facility] Address [address] [facility] [place] [address] Care Team Providers Care Diploma Dental Assistant Name Role Phone Unknown, Provider Primary Care Provider Unavaila ble Encounter Details Date Type Department Care Team (Late st Contact Info) Description 09/16/2023 Lab Requisition [facility] - DermPath Lab [address] [facility] [id number] Tito Benito MD [address] [place] [address] Social History Tobacco Use Types [...] AM CDT) Case Report Dermatopathology Report Case: [id number] Authorizing Provider: Tito Benito MD Collected: 09/15/2023 03:33 AM Ordering Location: [facility] Physician [facility] - Received: 09/16/2023 03:08 PM DermPath Lab [...] specimen consists of a shave biopsy measuring 46u44w5 mm. Jar 0. 2:57 PM CDT DERMATOPATHOLOGY [...] characteristic determined by the Dermatopathology Laboratory at [facility], directed by Dr. Preeti Marques. These tests need not be, and therefore are not, approved by the [place] Food and Drug Administration. The tests are used for clinical purposes. Billing Codes Specimen Charges Stain Charges 89039 1 4 2:57 PM CDT DERMATOPATHOLOGY LABORATORY Embedded Images 2:57 PM CDT DERMATOPATHOLOGY LABORATORY Pathology/Cytolo gy TISSUE SPECIMEN FROM SKIN / Unknown 09/15/2023 3:33 AM CDT 09/16/2023 3:08 PM CDT Tito Benito MD LAB - PATHOLOGY/CYTO LOGY ORDERABLES DERMATOPATHOLOGY LABORATORY [facility] - Department of Dermatology [address], [address] [phone] documented in this encounter Visit Diagnoses Not on filedocumented in this encounter Care Teams Diploma Dental Assistant Relationship Specialty Start Date End Date Unknown, Provider PCP - General 07/09/17 documented as of this encounter
--- OUTSIDE RECORDS SUMMARY | 2024-04-29 12:14 | XMS_ITS | Encounter Summary ---
Author Organization [facility] Address [address] [facility] [place] [address] Care Team Providers Care Detective Bowling Alley Name Role Phone Unknown, Provider Primary Care Provider Unavaila ble Encounter Details Date Type Department Care Team (Late st Contact Info) Description 10/08/2022 Lab Requisition [facility] - DermPath Lab [address] [facility] [place] [id number] Tito Benito MD [address] [place] [address] Social History Tobacco Use Types [...] AM CDT) Case Report Dermatopathology Report Case: [id number] Authorizing Provider: Tito Benito MD Collected: 10/07/2022 12:00 AM Ordering Location: [facility] DermPath Lab Received: 10/08/2022 01:54 PM Pathologist: [...] specimen consists of a shave biopsy measuring 79b74d7 mm. Jar 0. 3 3:43 PM CDT [...] characteristic determined by the Dermatopathology Laboratory at [facility], directed by Dr. Preeti Marques. These tests need not be, and therefore are not, approved by the [place] Food and Drug Administration. The tests are used for clinical purposes. Billing Codes Specimen Charges Stain Charges 64045 1 3 3:43 PM CDT DERMATOPATHOLOGY LABORATORY Embedded Images 3 3:43 PM CDT DERMATOPATHOLOGY LABORATORY Pathology/Cytolog y TISSUE SPECIMEN FROM SKIN / Unknown 10/07/2022 10/08/2022 1:54 PM CDT Tito Benito MD LAB - PATHOLOGY/CYTO LOGY ORDERABLES DERMATOPATHOLOGY LABORATORY [facility] - Department of Dermatology [address] [place] [address], [facility] [phone] documented in this encounter Visit Diagnoses Not on filedocumented in this encounter Care Teams Detective Bowling Alley Relationship Specialty Start Date End Date Unknown, Provider PCP - General 07/09/17 documented as of this encounter
--- OUTSIDE RECORDS SUMMARY | 2024-04-29 12:15 | XMS_ITS | Encounter Summary ---
Author Organization [facility] Address [address] [facility] [place] [address] Care Team Providers Care Vasc Tech Name Role Phone Unknown, Provider Primary Care Provider Unavaila ble Encounter Details Date Type Department Care Team (Late st Contact Info) Description 06/27/2021 Lab Requisition [facility] DermPath Lab [address] [facility] [place] [phone] Tito Benito MD [address] [place] [address] Social History Tobacco Use Types [...] AM CDT) Case Report Dermatopathology Report Case: [id number] Authorizing Provider: Tito Benito MD Collected: 06/26/2021 03:33 AM Ordering Location: [facility] DermPath Lab Received: 06/27/2021 01:46 PM Pathologist: [...] specimen consists of a shave biopsy measuring 3h7h1pm. Jar 0. Specimen B: Received is one formalin filled container labeled with the patient's name and designated right cheek. The specimen consists of a shave biopsy measuring 1r7m0xk. Jar 0. Specimen C: Received is one formalin filled container labeled with the patient's name and designated above right lateral brow. The specimen consists of a shave biopsy measuring 0d0u7fd. Jar 0. 2 6:53 PM CDT DERMATOPATHOLOGY [...] characteristic determined by the Dermatopathology Laboratory at [facility], directed by Dr. Preeti Marques. These tests need not be, and therefore are not, approved by the [place] Food and Drug Administration. The tests are used for clinical purposes. Billing Codes Specimen Charges Stain Charges 14700 91621 64448 1 1 1 2 6:53 PM CDT [...] - PATHOLOGY/CYTO LOGY ORDERABLES DERMATOPATHOLOGY LABORATORY [facility] - Department of Dermatology [facility] Medicine [address] [place] [address], [address] [phone] documented in this encounter Visit Diagnoses Not on filedocumented in this encounter Care Teams Vasc Tech Relationship Specialty Start Date End Date Unknown, Provider PCP - General 07/09/17 documented as of this encounter
--- OUTSIDE RECORDS SUMMARY | 2024-04-29 12:15 | XMS_ITS | Encounter Summary ---
Author Organization [facility] Address [address] [facility] [place] [address] Care Team Providers Care Strategic Buyer Name Role Phone Unknown, Provider Primary Care Provider Unavaila ble Encounter Details Date Type Department Care Team (Late st Contact Info) Description 08/05/2018 Lab Requisition [facility] Care DermPath Lab [address] [facility] [place] [address] Tito Benito MD [address] [place] [address] Social History Tobacco Use Types [...] AM CDT) Case Report Dermatopathology Report Case: [id number] Authorizing Provider: Tito Benito MD Collected: 08/04/2018 [...] specimen consists of a shave biopsy measuring 1p2z0ud. Jar 0. 1:16 PM CDT DERMATOPATHOLOGY LABORATORY [...] characteristic determined by the Dermatopathology Laboratory at [facility], directed by Dr. Preeti Marques. These tests need not be, and therefore are not, approved by the [place] Food and Drug Administration. The tests are used for clinical purposes. Billing Codes Specimen Charges Stain Charges 21170 1 1:16 PM CDT DERMATOPATHOLOGY LABORATORY Embedded Images 1:16 PM CDT DERMATOPATHOLOGY LABORATORY Pathology/Cytolog y TISSUE SPECIMEN FROM SKIN / Unknown 08/04/2018 08/05/2018 12:31 PM CDT Tito Benito MD LAB - PATHOLOGY/CYTO LOGY ORDERABLES DERMATOPATHOLOGY LABORATORY [facility] - Department of Dermatology [address] [place] [address], [address]th [place] [address], [facility] [phone] documented in this encounter Visit Diagnoses Not on filedocumented in this encounter Care Teams Strategic Buyer Relationship Specialty Start Date End Date Unknown, Provider PCP - General 07/09/17 documented as of this encounter
--- OUTSIDE RECORDS SUMMARY | 2024-04-29 12:15 | XMS_ITS | Clinical Summary ---
Author Organization [facility] Address [address] [place] [address] Care Team Providers Care Compressor Stations Superintendent Name Role Phone None, Provider Primary Care Provider Unavaila ble Social History Tobacco Use Types Packs/Day Years Used Date Smoking Tobacco: Never Assessed Sex and Gender Information Value Date Recorded Sex Assigned at Male 03/25/2024 3:34 PM EXECUTIVE PILOT Legal Sex Male 12:05 PM EXECUTIVE PILOT Gender Identity Not on file Sexual Orientation [...] this topic Medical Devices Implanted Type Area Mechanical Maintenance Engineer Device Identifier Shelf Expiration Date Model / Serial / Lot Ra Lead-01/27/2021 Implanted:Qty: 1 on 01/27/2021 by Sandra Graham MD Lead Implant Right: Atrium [employer]OTRONIK S0LIA S 45 / [id number] / Rv Lead-01/27/2021 Implanted:Qty: 1 on 01/27/2021 by Sandra Graham MD Lead Implant Right: Ventricle BIOT[employer]IK SOLIA S 53 / [id number] / Pacemaker-01/27 Implanted:Qty: 1 on 01/27/2021 by Sandra Graham MD Pacemaker Chest BIOTRONIK EDORA 8 DR-T MODEL [id number] / [id number] / Description:MR Conditional u nder following conditions: Static magnetic field of 1.5 T or 3 T, max spatial gradient field of 3000 gauss/cm or less, Max slew rate 200 T/m/s, Max whole body DAMIAN of 2 w/kg or less, Head DAMIAN 3.2 W/kg or less, Max 30 minutes active scan time in 60 minute window Insurance MED RE[facility]ACE [facility] MEDICARE Care Teams Compressor Stations Superintendent Relationship Specialty Start Date End Date None, Provider, PCP - General UNKNOWN PHYSICIAN SPECIALTY 02/25/23
--- OUTSIDE RECORDS SUMMARY | 2024-04-29 12:15 | XMS_ITS | Clinical Summary ---
Author Organization [facility] Address [address] [place] [address] Care Team Providers Care Felt Cutter Name Role Phone Unknown, Provider Primary Care Provider Unavaila ble Source Comments [facility],non-owned Affiliates and Associated Physician Practices is amultiple site organization consisting of ambulatory clinics and hospital sitesin [place], [place], [place] and [place]. This disclosure is being madepursuant to the Care Everywhere program and may not contain all information available regarding this patient. Last updated 17.[facility] Social History Tobacco Use Types Packs/Day Years [...] age to complete this topic Care Teams Felt Cutter Relationship Specialty Start Date End Date Unknown, Provider PCP - General 07/09/17
--- OUTSIDE RECORDS SUMMARY | 2024-04-29 12:15 | XMS_ITS | CONTINUITY OF CARE DOCUMENT ---
Author Name victoriaclara mariela Address Unknown Organization [facility] Address [address] [facility] [address] [place] [address] Phone [phone] Care Team Providers Care Manager Interventional Name Role Phone Gladys RUSHING, Sandra Unavailable [phone] NEVA RUSHING, ZACHARY Unavailable [phone] VERNACE DO SRIKANTH Unavailable PROBLEMS Condition Status Date Provider Notes Hypotension active Erick Stewart Prostate cancer active Sandra Graham MD S/P Dual chamb PCM - Biotron ik ( MRI Safe) active Rox Holman Heart block active Taglenna Yadav Bradycardia, severe active Nadia Yadav Afib with RVR active Taglenna Yadav Syncope active Taglenna Yadav DVT active Taglenna Yadav Cardiac arrest active Taglenna Yadav Aortic stenosis, severe active Nadia Yadav CAD active Nadia Yadav Frequent premature ventricular beats active Elizabeth Juarez NP Frequent unifocal PVCs active Sandra love MD Pulmonary embolism active Sandra Graham MD ENCOUNTERS Date Type Provider Location Encounter Diag nosis - In-person encounter Office Visit Sandra [facility] - In-person encounter Office Visit Sandra [facility] MD [facility] Frequent unifocal PVCsPulmonary embolism - In-person encounter Office Visit Sandra Graham MD [facility] - In-person encounter Office Visit Sandra Graham MD [facility] Frequent premature ventricular beats - In-person encounter Office Visit Sandra Graham MD [facility] - In-person encounter Office Visit Sandra Graham MD [facility] Heart blockBradycardia, severeAfib with RVRSyncopeDVTCardiac arrestAortic [...] Mass Index (Ratio) 23.73 kg/m2 Alex caballero Nathalie blood pressure, cuff size regular Ke rri [...] Provider smoking, year quit 1982 Elizabeth Juarez WATER CONSERVATION SPECIALIST number of years as a smoker 25 a Eliazbeth Juarez NP smoking history, tot al pack/day 1 ppd Elizabeth Juarez NP cigarette use yes Elizabeth fraire WATER CONSERVATION SPECIALIST smoking status Former smoker Elizabeth ibanez WATER CONSERVATION SPECIALIST Exercise counseling Yes Elizabeth Juarez NP social [...] Gayla hernandesjuno cigarette use yes Gayla Marmolejo [facility] smoking status Former smoker Gayla daseldjuno [...] Policy type / Coverage type Xochitl red libertarian ID [employer] M[employer] ADVANTAGE PLAN PPO ([facility]) Medicare [id number] ADVANCE DIRECTIVES Name Date DISCUSSED - NO DECISION MADE TREATMENT PLAN Date Name Performer [id number],S, H is updated medication list for this problem includes: Carvedilol 3.125 Mg Tablet (Carvedilol) ..... Take 1 tablet by mouth twice daily Clopidogrel 75 Mg Tablet (Clopidogrel) ..... Take 1 tablet by mouth every day Lore Haji [id number],S, H is updated medication list for this problem includes: Carvedilol 3.125 Mg Tablet (Carvedilol) ..... Take 1 tablet by mouth twice daily Clopidogrel 75 Mg Tablet (Clopidogrel) ..... Take 1 tablet by mouth every day Lore Haji [id number],B, Lore Haji [id number],B,i mproved post pacemaker H is updated medication list for this problem includes: Carvedilol 3.125 Mg Tablet (Carvedilol) ..... Take 1 tablet by mouth twice daily Clopidogrel 75 Mg Tablet (Clopidogrel) ..... 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 Take 1 tablet by mouth twice daily Clopidogrel 75 Mg Tablet (Clopidogrel) ..... Take 1 tablet by mouth every day Sandra Graham MD [id number],C,d evice check 08/2021 Presenting EGM: Ap Vs. [...] day Eliquis 5mg BID Sandra Graham MD [id number],S, c ardiac cath at [facility] showing mild [...] by mouth every day Sandra Graham MD [id number],C,d evice check 08/2021 Presenting EGM: Ap Vs. [...] day Eliquis 5mg BID Elizabeth Juarez NP [id number],C, s /p TAVR 04/25/21 [facility] showed Severe calcific aortic stenosis, SIRISHA 0.8 cm2 01/2021 Elizabeth Juarez NP [id number],C, c ardiac cath at [facility] showing mild narrowing in left main with shelf-like calcification in the proximal segment; mild plaque proximal LAD and major diagonal branch; 30-40% stenosis proximal-mid LCX. Patent but tortuous bilateral iliac arteries. Ectatic distal abdominal aorta. Severe calcific aortic stenosis, SIRISHA 0.8 cm2 on CARMEN by planimetry. 01/2021 Elizabeth Juarez WATER CONSERVATION SPECIALIST [id number],C, S /p successful dual chamber PPM 01/27/21, sxs have improved markedly, he has been feeling well, incision site was redressed and is healing well. Elizabeth Juarez WATER CONSERVATION SPECIALIST [id number],C,d evice interrogation today 1 episode of AFIB 04/25/21 which was the day of His TAVR. no other episodes. normal function. His updated medication list for this problem includes: Carvedilol 3.125 Mg Tablet (Carvedilol) ..... Take 1 tablet by mouth twice daily Clopidogrel 75 Mg Tablet (Clopidogrel) ..... Take 1 tablet by mouth every day eliquis 5mg BID Elizabeth Juarez WATER CONSERVATION SPECIALIST [id number],C, c ardiac cath at [facility] showing mild narrowing in left main with shelf-like calcification in the proximal segment; mild plaque proximal LAD and major diagonal branch; 30-40% stenosis proximal-mid LCX. Patent but tortuous bilateral iliac arteries. Ectatic distal abdominal aorta. Severe calcific aortic stenosis, SIRISHA 0.8 cm2 on today's CARMEN by planimetry. 01/2021 Elizabeth Juarez WATER CONSERVATION SPECIALIST [id number],C,s /p TAVR 04/25/21 CAR[facility] showed Severe calcific aortic stenosis, SIRISHA 0.8 cm2 01/2021 Elziabeth Johnson WATER CONSERVATION SPECIALIST [id number],C,c ardiac cath at [facility] showing mild narrowing in left main with shelf-like calcification in the proximal segment; mild plaque proximal LAD and major diagonal branch; 30-40% stenosis proximal-mid LCX. Patent but tortuous bilateral iliac arteries. Ectatic distal abdominal aorta. Severe calcific aortic stenosis, SIRISHA 0.8 cm2 on today's CARMEN by planimetry. 01/2021 Miguel Angel Haji [id number],C,S /p successful dual chamber PPM 01/27/21, sxs have improved markedly, he has been feeling well, incision site was redressed and is healing well. Miguel Angel Haji [id number],C,S /p successful dual chamber PPM 01/27/21, sxs have improved markedly, he has been feeling well, incision site was redressed and is healing well. Miguel Angel Haji [id number],S, Miguel Angel [place] i [id number],C,U ndergoing TAVR work up at [facility], CARMEN showed Severe calcific aortic stenosis, SIRISHA [...] on Eliquis by Dr. Pineda on 08/29/2023 s tarelliott Multaq 400 mg PO bid H is updated medication list for this problem includes: Carvedilol 3.125 Mg Tablet (Carvedilol) ..... Take 1 tablet by mouth twice daily Clopidogrel 75 Mg Tablet (Clopidogrel) ..... Take 1 tablet by mouth every day Orders: [facility] ([id number]) Sandra Graham MD Electrophysiology:on eliquis for pulmonary [...] every day Orders: 9 9215 HIGH 40-54min ([id number]) Sandra Graham MD Electrophysiology Sandra willis MD [...] Graham MD Electrophysiology: c ardiac cath at [facility] showing mild narrowing in left main with [...] today's CARMEN by planimetry. 01/2021 Elizabeth Juarez NP Electrophysiology:s/ p TAVR 04/25/21 [facility] showed Severe calcific aortic stenosis, SIRISHA 0.8 cm2 01/2021 Elizabeth Juarez NP Electrophysiology:ca rdiac cath at [facility] showing mild narrowing in left main with [...] Haji Electrophysiology:Un dergoing TAVR work up at [facility], CARMEN showed Severe calcific aortic stenosis, SIRISHA [...] EKG Sandra Graham MD comp leted EKG ulius Bellitis comp leted Schedule Followup Sandra Graham MD [address] Graham completed EKG ulius Bellitis comp leted Schedule Followup Sandra Graham MD [address] Graham completed EKG Sandra Graham MD comp leted EKG Sandra Graham MD comp leted
--- OUTSIDE RECORDS SUMMARY | 2024-04-29 12:15 | XMS_ITS | Encounter Summary ---
Author Organization [facility], [facility] Address [address] [place] [address] Care Team Providers Care Director Of Restaurants Name Role Phone Unknown, Provider Primary Care Provider Unavaila ble Encounter Details Date Type Department Care Team (Late st Contact Info) Description 03/18/2019 Lab Requisition [facility] DermPath Lab [address] [facility] [place] [address] Tito Benito MD [address] [place] [address] Social History Tobacco Use Types [...] Comments DERMATOPATHOLOGY Routine 03/16/2019 12:0 0 AM [employer] documented in this encounter Results * DERMATOPATHOLOGY (03/16/2019 12:00 AM [employer]) Case Report Dermatopathology Report Case: [id number] Authorizing Provider: Tito Benito MD Collected: 03/16/2019 12:00 AM Ordering Location: [facility] DermPath Lab Received: 03/18/2019 07:36 AM Pathologist: Irena Villagran MD Specimen: Skin, left baptism lateral to brow 0 1:40 PM [employer] DERMATOPATHOLOGY LABORATORY Final Diagnosis Specimen A. SKIN, left baptism lateral to brow: BASAL CELL CARCINOMA, NODULAR TYPE (C44.319) 0 1:40 PM [employer] DERMATOPATHOLOGY LABORATORY Clinical History R/O BCC. 0 1:40 PM [employer] DERMATOPATHOLOGY LABORATORY Gross Description Specimen A: Received is one formalin filled container labeled with the patient's name and designated left baptism lateral to brow. The specimen consists of a shave biopsy measuring [id number]. Jar 0. 0 1:40 PM [employer] DERMATOPATHOLOGY LABORATORY Microscopic Description Specimen A. SKIN, left baptism lateral to brow: Within the dermis there are aggregates of basaloid cells with a high nuclear to cytoplasmic ratio and peripheral palisading. 0 1:40 PM [employer] DERMATOPATHOLOGY LABORATORY Disclaimer An external and internal positive and negative controls are appropriate for the histochemical, immunohistochemical and immunofluorescence stain(s) in this case (if any), except where stated explicitly. The performance characteristics of the stain(s) cited in this report were developed and its performance characteristic determined by the Dermatopathology Laboratory at [facility], directed by Dr. Preeti Marques. These tests need not be, and therefore are not, approved by the [place] Food and Drug Administration. The tests are used for clinical purposes. Billing Codes Specimen Charges Stain Charges 47709 1 0 1:40 PM [employer] DERMATOPATHOLOGY LABORATORY Embedded Images 0 1:40 PM [employer] DERMATOPATHOLOGY LABORATORY Pathology/Cytolog y TISSUE SPECIMEN FROM SKIN / Unknown 03/16/2019 03/18/2019 7:36 AM [employer] Tito Benito MD LAB - PATHOLOGY/CYTO LOGY ORDERABLES DERMATOPATHOLOGY LABORATORY [facility] - Department of Dermatology [address] [place] [address], [address] [place] [address], [facility] [phone] documented in this encounter Visit Diagnoses Not on filedocumented in this encounter Care Teams Director Of Restaurants Relationship Specialty Start Date End Date Unknown, Provider PCP - General 07/09/17 documented as of this encounter
--- OUTSIDE RECORDS SUMMARY | 2024-04-29 12:15 | XMS_ITS | Encounter Summary ---
Author Organization [facility] Address [address] [facility] [address] [facility] [place] [address] Care Team Providers Care Pool Table Operator Name Role Phone Unknown, Provider Primary Care Provider Unavaila ble Encounter Details Date Type Department Care Team (Late st Contact Info) Description 07/09/2017 Lab Requisition [facility] Care DermPath Lab [address] [facility] [facility] [place] [address] Tito Benito MD [address] [place] [address] Social History Tobacco Use Types [...] AM CDT) Case Report Dermatopathology Report Case: [id number] Authorizing Provider: Tito Benito MD Collected: 07/08/2017 12:00 AM Pathologist: Melania Marques MD Received: 07/09/2017 12:28 PM Specimen: Skin, left caodaism 8 5:06 PM CDT DERMATOPATHOLOGY LABORATORY Final Diagnosis Specimen A. SKIN, left caodaism: SEBORRHEIC KERATOSIS, IRRITATED (L82.0) PRESENT AT MARGIN 8 5:06 PM CDT DERMATOPATHOLOGY LABORATORY Clinical History R/O BCC. Check margins. 8 5:06 PM CDT DERMATOPATHOLOGY LABORATORY Gross Description Specimen A: Received is one formalin filled container labeled with the patient's name and designated left caodaism. The specimen consists of a shave biopsy measuring [id number], the margin is inked green. Jar 0. 8 5:06 PM CDT DERMATOPATHOLOGY LABORATORY Microscopic Description Specimen A. SKIN, left caodaism: There is acanthosis consisting of fairly uniform [...] characteristic determined by the Dermatopathology Laboratory at [facility]. These tests need not be, and therefore are not, approved by the [place] Food and Drug Administration. The tests are used for clinical purposes. Billing Codes Specimen Charges Stain Charges 54371 1 8 5:06 PM CDT DERMATOPATHOLOGY LABORATORY Embedded Images 8 5:06 PM CDT DERMATOPATHOLOGY LABORATORY Pathology/Cytolog y TISSUE SPECIMEN FROM SKIN / Unknown 07/08/2017 07/09/2017 12:28 PM CDT Tito Benito MD LAB - PATHOLOGY/CYTO LOGY ORDERABLES DERMATOPATHOLOGY LABORATORY [facility] - Department of Dermatology [address] [place] [address], [address] [place] [address], [facility] [phone] documented in this encounter Visit Diagnoses Not on filedocumented in this encounter Care Teams Pool Table Operator Relationship Specialty Start Date End Date Unknown, Provider PCP - General 07/09/17 documented as of this encounter
--- OUTSIDE RECORDS SUMMARY | 2024-04-29 12:15 | XMS_ITS | Referral Summary ---
Author Organization [facility] Address [address] [place] [address] Care Team Providers Care Superintendent Service Name Role Phone Unknown, Provider Primary Care Provider Unavaila ble Source Comments [facility],non-owned Affiliates and Associated Physician Practices is amultiple site organization consisting of ambulatory clinics and hospital sitesin [place], [place], [place] and [place]. This disclosure is being madepursuant to the Care Everywhere program and may not contain all information available regarding this patient. Last updated 17.[facility] [employer] Social History Tobacco Use Types Packs/Day Years Used Date Smoking Tobacco: Never Assessed Sex and Gender Information Value Date Recorded Sex Assigned at Not on file Gender Identity Not on file Sexual Orientation Not on file Plan of Treatment Not on file Care Teams Superintendent Service Relationship Specialty Start Date End Date Unknown, Provider PCP - General 07/09/17
--- OUTSIDE RECORDS SUMMARY | 2024-04-29 12:15 | XMS_ITS | Patient Health Summary ---
Author Organization [facility] Address [address] [place] [address] Care Team Providers Care Case Making Machine Operator Name Role Phone Unknown, Provider Primary Care Provider Unavaila ble Note from [facility],non-owned Affiliates and Associated Physician Practices is amultiple site organization consisting of ambulatory clinics and hospital sitesin [place], [place], [place] and [place]. This disclosure is being madepursuant to the Care Everywhere program and may not contain all information available regarding this patient. Last updated 17.[facility] Social History Tobacco Use Types Packs/Day Years [...] is included. Case Report Dermatopathology Report Case: [id number] Authorizing Provider: Tito Benito MD Collected: 09/15/2023 03:33 AM Ordering Location: [facility] - Received: 09/16/2023 03:08 PM DermPath Lab Pathologist: Steff Donaldsno MD Specimen: Skin, left distal medial calf [...] specimen consists of a shave biopsy measuring [id number] mm. Jar 0. 2:57 PM CDT DERMATOPATHOLOGY [...] characteristic determined by the Dermatopathology Laboratory at [facility], directed by Dr. Preeti Marques. These tests need not be, and therefore are not, approved by the [place] Food and Drug Administration. The tests are used for clinical purposes. Billing Codes Specimen Charges Stain Charges 68402 1 2:57 PM CDT DERMATOPATHOLOGY LABORATORY Embedded Images 2:57 PM CDT DERMATOPATHOLOGY LABORATORY Pathology/Cytolo gy TISSUE SPECIMEN FROM SKIN / Unknown 09/15/2023 3:33 AM CDT 09/16/2023 3:08 PM CDT Tito Benito MD LAB - PATHOLOGY/CYTO LOGY ORDERABLES DERMATOPATHOLOGY LABORATORY [facility] - Department of Dermatology [address] [place] [address], [facility] [phone] Care Teams Case Making Machine Operator Relationship Specialty Start Date End Date Unknown, Provider PCP - General 07/09/17
[2024-04-29 12:25] LABS: Anion Gap 8 mmol/L (4-12); Blood Urea Nitrogen 13 mg/dL (9-20); Calcium 9.2 mg/dL (8.4-10.2); Carbon Dioxide 25 mmol/L (22-30); Chloride 106 mmol/L (98-107); Estimated Glomerular Filt Rate > 60; Glucose 112 mg/dL (65-110); Potassium 4.1 mmol/L (3.4-5.0); Sodium 139 mmol/L (137-145)
== END 2024-04-29 11:18 | disposition home or self-care (01) ==
LOC: HOME HLTH 11:19
PROVIDERS: PCP Family Medicine; Visit Provider Family Medicine
DX: I50.20 Unspecified systolic (congestive) heart failure (principal); I48.0 Paroxysmal atrial fibrillation; L89.90 Pressure ulcer of unspecified site, unspecified stage; Z79.899 Other long term (current) drug therapy
CPT/HCPCS: 80048